=== PATIENT | female | born 1985 | race Caucasian/White ===

== ENCOUNTER 2017-07-25 21:03 | Emergency (ER) | payer MEDICAID, SELFPAY ==
[2017-07-25 21:04] VITALS: BP 139/66; PULSE 81; RESP 18; TEMP 36.2; O2SAT 100; BMI 30.2
[2017-07-25] MEDS: Ketorolac 30 MG/ML Syringe IV (21:33)
[2017-07-25] MEDS: 0.9% Normal Saline 1,000 ML 999 ML IV (21:34)
[2017-07-25] MEDS: proCHLORPERazine 10 MG/2 ML Vial IV (21:34)
[2017-07-25] MEDS: DiphenhydrAMINE 50 MG/ML Syringe IV (21:34)
--- NOTE | 2017-07-25 22:01 | ED.VISSUMM ---
- ER Visit Summary Date of Service: 07/25/17 Chief Complaint: Headache History of Present Illness: The patient is a 32 F with a headache that started about a week ago. Her symptoms have been intermittent. They became worse yesterday and have continued to get worse today. The pain is bitemporal and radiates into her neck. Gradual onset. Worse with light and sounds. Better with sleep. Patient also reports a couple episodes of vomiting. Tried [id number] medicines but they are not helping. She was sent here from work. She has a history of headaches. She was evaluated in the past because she has a family history of aneurysm. She had negative CTAs of her head and neck in 2017. Physical Examination: Afebrile and vital signs unremarkable. Patient appears uncomfortable but not toxic or in distress. She is alert and oriented. Head shows normal inspection. Cranial nerves grossly intact. Neck is nontender. Good range of motion. No meningeal signs. No focal or lateralizing neurologic abnormalities on exam. Good coordination. Test Results: None indicated Emergency Department Course and Treatment: Patient received fluids, Compazine, Benadryl, and Toradol. On reevaluation, symptoms have resolved. Patient will be discharged. Follow-up with primary care. Return for any new or worsening symptoms. Treatment Plan: As above Disposition: Discharged Impression: 1. Acute headache This note was generated with [employer] dictation software. It may contain incorrect words, spelling, and punctuation that were not noted in review of the chart prior to signing ED Disposition - Plan for ED Patient: Chief Complaint: Headache Referrals: Care Physician,No Primary [Primary Care Provider] -
--- NOTE | 2017-07-25 22:03 | ED.DEP ---
ED Disposition - Plan for ED Patient: Chief Complaint: Headache Instructions: ED Cephalgia Unspecified Additional Instructions: Follow-up with primary care, return if worse
[2017-07-25 22:14] VITALS: BP 101/67; PULSE 68; RESP 16; O2SAT 98
== END 2017-07-25 22:16 | disposition home or self-care (01) ==
LOC: ED 21:26
PROVIDERS: Emergency Provider Emergency Medicine
DX: R51 Headache (principal); Z72.0 Tobacco use
CPT/HCPCS: 96361; 96374; 96375; 99284; J7030; A4216

== ENCOUNTER 2017-07-31 14:03 | Emergency (ER) | payer MEDICAID, SELFPAY ==
[2017-07-31 14:03] VITALS: BP 128/94; PULSE 123; RESP 16; TEMP 36.7; O2SAT 97; BMI 31.6
[2017-07-31] MEDS: Ketorolac 60 MG/2 ML Vial IM (14:54)
[2017-07-31] MEDS: Metoclopramide 10 MG Tablet PO (14:54)
[2017-07-31] MEDS: 0.9% Normal Saline 1,000 ML 999 ML IV (15:49)
[2017-07-31 15:52] VITALS: BP 131/98; PULSE 78; RESP 16; O2SAT 98
--- NOTE | 2017-07-31 16:21 | ED.VISSUMM ---
- ER Visit Summary Date of Service: 07/31/17 Chief Complaint: Headache History of Present Illness: The patient is a 32 F who complains of a headache. It is been present for about 1 week it is intermittent. It progressed gradually over the course of several days. It is similar to prior headaches. She does have a history of prior headaches which were treated in the emergency department as migraine with symptomatic improvement. She had normal CTA of the head and neck about 1 year ago. She denies any history of fall or injury. She has some nausea but denies any vomiting fever photophobia visual changes numbness tingling or other neurological symptoms. She also complains of anxiety. She ran out of her Xanax 3 months ago and has been having anxiety and panic attacks since that time. No chest pain or shortness of breath. Physical Examination: Afebrile initial heart rate 123 vitals otherwise unremarkable Patient does appear anxious Moist mucous membranes Heart regular rhythm slightly tachycardic Lungs are clear Abdomen soft Alert and oriented with no focal or lateralizing neurological deficits. Normal strength and sensation. Test Results: Not indicated Emergency Department Course and Treatment: Patient was initially treated with IM Toradol and oral Reglan and Vistaril. She reports improvement of her anxiety but complains of ongoing headache. At this time an IV was established and she was given IV Depacon and Decadron on reevaluation she has only had a small to the infusion but is resting more comfortably and has had some mild symptomatic improvement. Patient will be signed out to the oncoming physician. If symptomatically improved I do believe she can be discharged to follow-up with her primary care physician. Patient agreeable with this plan. Treatment Plan: [] Disposition: Pending reevaluation Impression: Headache Anxiety This note was generated with [employer] dictation software. It may contain incorrect words, spelling, and punctuation that were not noted in review of the chart prior to signing ED Disposition - Plan for ED Patient: Chief Complaint: Headache Referrals: Care Physician,No Primary [Primary Care Provider] -
--- NOTE | 2017-07-31 16:24 | ED.DEP ---
ED Disposition - Plan for ED Patient: Chief Complaint: Headache Instructions: ED Cephalgia Unspecified, ED Panic Attack Referrals: Care Physician,No Primary [Primary Care Provider] -
--- NOTE | 2017-07-31 17:00 | ED.VISSUMM ---
- ER Visit Summary Date of Service: 07/31/17 Chief Complaint: [Addendum to initial dictation by Dr. Taylor] History of Present Illness: The patient is a 32 F [] Physical Examination: [] Test Results: [] Emergency Department Course and Treatment: [Patient care was turned over to me awaiting infusion of medications to treat her suspected migraine. After her treatment patient is feeling markedly improved. Discharge instructions were written by Dr. Taylor.] Treatment Plan: [] Disposition: [Discharged to home in stable condition] Impression: [Headache Anxiety] This note was generated with [employer] dictation software. It may contain incorrect words, spelling, and punctuation that were not noted in review of the chart prior to signing ED Disposition - Plan for ED Patient: Chief Complaint: Headache Instructions: ED Cephalgia Unspecified, ED Panic Attack Referrals: Care Physician,No Primary [Primary Care Provider] -
[2017-07-31 17:10] VITALS: BP 108/69; PULSE 75; RESP 14; O2SAT 100
== END 2017-07-31 17:11 | disposition home or self-care (01) ==
LOC: ED 15:04
PROVIDERS: Emergency Provider Emergency Medicine
DX: R51 Headache (principal); F41.9 Anxiety disorder, unspecified; Z72.0 Tobacco use
CPT/HCPCS: 96365; 96372; 96375; 99283; J7030; A4216

== ENCOUNTER 2017-08-02 16:30 | Emergency (ER) | payer MEDICAID, SELFPAY ==
[2017-08-02 16:31] VITALS: BP 140/83; PULSE 84; RESP 16; TEMP 37; O2SAT 97; BMI 32.3
--- NOTE | 2017-08-02 17:02 | CT_ITS ---
STUDY: CTA OF THE BRAIN REASON FOR EXAM: Female, 32 years old. Headache RADIATION DOSAGE (If Supplied By Facility): CTDIvol = ( 28.46 ) mGy, DLP = ( 1059.34 ) mGycm TECHNIQUE: CT angiography was performed with a multi-detector CT scanner. Data acquisition was obtained from the skull base through the vertex following intravenous administration of 100 ml of Isovue 370. MIP images were reconstructed from the axial data set. Post-processing of the angiographic images was performed, with multiplanar reformation and 3D reconstruction. Individualized dose optimization techniques were used for this CT. COMPARISON: July 19, 2016 FINDINGS: The soft tissues are unremarkable. The osseous structures are unremarkable. Normal size ventricles and extra-axial spaces for the patient's age. The white matter tracts are unremarkable. The basal ganglia and thalami are unremarkable. No abnormalities are seen in the brainstem. The cerebellum is unremarkable. There is no intracranial hemorrhage. There are no findings of acute ischemia. The visualized sinuses are unremarkable. The petrous carotid arteries are normal in appearance. Normal right cavernous carotid artery with a normal supraclinoid bifurcation. Normal left cavernous carotid artery with a normal supraclinoid bifurcation. 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 Normal left A1 segment of the anterior cerebral artery. Normal intact anterior communicating artery (ACOM). Normal bilateral A2 segments of the anterior cerebral arteries. Normal right M1 and M2 segments of the middle cerebral arteries, with a normal M1 bifurcation. Normal left M1 and M2 segments of the middle cerebral arteries, with a normal M1 bifurcation. Normal right posterior communicating artery (PCOM). Normal left posterior communicating artery (PCOM). Normal bilateral distal vertebral arteries. Normal basilar artery with a normal basilar bifurcation. The visualized bilateral superior cerebellar (SCA) arteries are within normal limits. Normal bilateral P1, P2 and visualized P3 segments of the posterior cerebral arteries. There is no demonstrated aneurysm of the [place]. There is no demonstrated enhancement of the visualized brain. CT/CTA Head W/WO Contrast IMPRESSION: Normal intracranial arteries without a demonstrated aneurysm or hemodynamically significant stenosis. No acute intracranial abnormalities or changes. Electronically Signed: Coby Reza MD at 18:55 EST Tel Direct: [phone], Service support ,
[2017-08-02] MEDS: 0.9% Normal Saline 1,000 ML 1000 ML IV (17:18)
[2017-08-02] MEDS: Ketorolac 30 MG/ML Syringe IV (17:19)
[2017-08-02] MEDS: proCHLORPERazine 10 MG/2 ML Vial IV (17:19)
[2017-08-02] MEDS: DiphenhydrAMINE 50 MG/ML Syringe 25 MG IV (17:19)
[2017-08-02 17:21] VITALS: PULSE 88; RESP 16; O2SAT 99
[2017-08-02] MEDS: DiphenhydrAMINE 50 MG/ML Syringe 12.5 MG IV (17:32)
[2017-08-02 17:33] LABS: Absolute Lymphocyte Count 3.09 X10^3/ul (0.83-4.51); Absolute Neutrophil Count 4.4 X10^3/uL (2.0-7.7); Basophil# 0.05 X10^3/uL; Basophil% 0.6 % (0-1); Eosinophil# 0.22 X10^3/uL; Eosinophils% 2.7 % (0-5); Hematocrit 44.5 % (37-47); Hemoglobin 14.8 g/dl (12.0-15.0); Lymphocyte # 3.09 X10^3/ul (4.0); Lymphocyte % 37.7 % (19-41); Mean Corp Hgb Conc 33.3 g/gl (32-36); Mean Corpuscular Hgb 30.5 pg (27.0-32.0); Mean Corpuscular Volume 91.8 fL (81-99); Mean Platelet Vol. 10.6 fl (6.2-12.0); Monocyte% 4.9 % (0-10); Neutrophil # 4.43 X10^3/uL (2.7-7.7); Platelet Count 144 K/mm3 (150-450); RBC Distribution Width CV 12.6 % (11.6-14.6); RBC Distribution Width SD 42.4 fl (35.1-43.9); Red Blood Count 4.85 M/mm3 (4.2-5.4); White Blood Count 8.2 K/mm3 (4.4-11.0)
--- NOTE | 2017-08-02 17:33 | ED.RN ---
INCREASED ANXIETY AFTER MEDS GIVEN. ADDITIONAL BENADRYL ORDERED PER DR. CALVO.
[2017-08-02 17:34] LABS: POSITIVE COUNT NO; POSITIVE DIFFERENTIAL NO; POSITIVE MORPHOLOGY NO
[2017-08-02 18:02] LABS: Anion Gap 8 (5-15); BUN 12 mg/dL (7-18); BUN/Creat Ratio 15.2 RATIO (10-20); Calcium,Total 8.9 mg/dL (8.5-10.1); Chloride 106 mmol/L (98-107); Creatinine, Serum 0.79 mg/dL (0.55-1.02); EST Glomerular Filtration Rate 89 mL/min (>60); Est Glom Filt Rate - Afr Amer 108 mL/min (>60); Estimated Creatinine Clearance 77.15 ml/min; Glucose 84 mg/dL (74-106); Sodium Level 138 mmol/L (136-145)
[2017-08-02 18:37] VITALS: BP 116/72; PULSE 60; RESP 16
--- NOTE | 2017-08-02 19:40 | ED.DCSUM_ITS ---
- ER Visit Summary Date of Service: 08/02/17 Chief Complaint: Headache History of Present Illness: The patient is a 32 F with history of migraine headaches. Patient states she has had recurrent migraines in the past couple weeks. She denies fever. She has had nausea and light sensitivity. Last medication for headache was Tylenol proximal 3 hours prior to arrival. Patient was seen here for the same on July 25 and July 31. Patient has an appointment to establish primary care at [facility] on the . Physical Examination: Vital signs are unremarkable. Patient is very anxious. She is intermittently tearful. Head and neck examination reveals diffuse muscular tenderness throughout the neck but no meningismus. Heart is regular rate and rhythm. Lung sounds are clear. Abdomen is soft nontender. Neuro exam is normal. Test Results: CBC and chemistry studies are significant only for platelet count of 144,000. She has no leukocytosis. CTA of the head was obtained secondary to family history of aneurysm. This is normal. Emergency Department Course and Treatment: She was given Toradol, Compazine, Benadryl, and IV fluids. On repeat evaluation she does report improvement. Patient raises concern for meningitis however she has had no fever and has had recurrent headaches for 2-1/2 weeks. Patient will be given prescriptions for Toradol, Compazine, and Benadryl at home. I have referred her to neurology as well to establish care with them. Treatment Plan: [] Disposition: Discharge Impression: Migraine, improved This note was generated with [employer] dictation software. It may contain incorrect words, spelling, and punctuation that were not noted in review of the chart prior to signing ED Disposition - Plan for ED Patient: Disposition: Home or Assisted Living Chief Complaint: Headache Instructions: ED Headache Migraine Prescriptions: DiphenhydrAMINE [Benadryl] 50 mg PO TID PRN PRN #20 capsule PRN Reason: Migraine Symptoms Prochlorperazine Maleate [Compazine] 10 mg PO 4X/DAY PRN PRN #20 tablet PRN Reason: Migraine Symptoms Ketorolac [Toradol] 10 mg PO Q6H PRN #20 tablet PRN Reason: Migraine Symptoms Referrals: Haylie Moncada MD [STAFF PHYSICIAN] - As soon as possible Additional Instructions: Follow-up with neurology as soon as possible. Keep your scheduled appointment with your new primary care doctor.
--- NOTE | 2017-08-02 19:43 | DCINST.ED_ITS ---
ED Disposition - Plan for ED Patient: Disposition: Home or Assisted Living Chief Complaint: Headache Instructions: ED Headache Migraine Prescriptions: DiphenhydrAMINE [Benadryl] 50 mg PO TID PRN PRN #20 capsule PRN Reason: Migraine Symptoms Prochlorperazine Maleate [Compazine] 10 mg PO 4X/DAY PRN PRN #20 tablet PRN Reason: Migraine Symptoms Ketorolac [Toradol] 10 mg PO Q6H PRN #20 tablet PRN Reason: Migraine Symptoms Referrals: Haylie Moncada MD [STAFF PHYSICIAN] - As soon as possible Additional Instructions: Follow-up with neurology as soon as possible. Keep your scheduled appointment with your new primary care doctor.
[2017-08-02 19:50] VITALS: BP 109/58; PULSE 71; RESP 18; O2SAT 97
== END 2017-08-02 19:51 | disposition home or self-care (01) ==
PROVIDERS: Emergency Provider Emergency Medicine
DX: G43.909 Migraine, unspecified, not intractable, without status migrainosus (principal); Z72.0 Tobacco use
CPT/HCPCS: 70496; 80048; 85025; 96361; 96374; 96375; 99283; J7030; Q9967; A4216

== ENCOUNTER 2017-08-08 17:56 | Emergency (ER) | payer MEDICAID, SELFPAY ==
[2017-08-08 17:58] VITALS: BP 165/106; PULSE 100; RESP 18; TEMP 37.1; O2SAT 96; BMI 32.1
--- NOTE | 2017-08-08 18:40 | RAD_ITS ---
STUDY: X-RAY CHEST REASON FOR EXAM: Female, 32 years old. Chest pain with shortness of breath and anxiety TECHNIQUE: AP COMPARISON: 02/22/2016 FINDINGS: The lungs are clear and expanded. There is no demonstrated pleural abnormality. Normal size heart. Normal mediastinum and amauri. Normal visualized pulmonary arteries. Normal visualized aortic arch and descending thoracic aorta. Normal visualized thoracic spine. Normal visualized ribs, clavicles, and shoulders. There is no demonstrated abnormality of the visualized soft tissue structures of the upper abdomen. RAD/Chest 1 View (Portable) IMPRESSION: 1. Stable, nonacute portable x-ray examination of the chest. Electronically Signed: Uche Garibay MD at 19:28 EST , Service support ,
--- NOTE | 2017-08-08 18:40 | EKG12_ITS ---
Test Reason : CP Blood Pressure : / mmHG Vent. Rate : 097 BPM Atrial Rate : 097 BPM P-R Int : 144 ms QRS Dur : 084 ms QT Int : 404 ms P-R-T Axes : 024 054 -59 degrees QTc Int : 513 ms Normal sinus rhythm Nonspecific ST and T wave abnormality Abnormal ECG Confirmed by LOGAN CORCORAN, JUANITA ([id number]), online editor SUZANNE MORRIS ([id number]) on 08/10/2017 1:37:09 PM Referred By: LUBNA
[2017-08-08 19:00] LABS: Absolute Lymphocyte Count 2.71 X10^3/ul (0.83-4.51); Absolute Neutrophil Count 6.8 X10^3/uL (2.0-7.7); Basophil# 0.02 X10^3/uL; Basophil% 0.2 % (0-1); Eosinophil# 0.23 X10^3/uL; Eosinophils% 2.2 % (0-5); Hematocrit 43.9 % (37-47); Hemoglobin 14.9 g/dl (12.0-15.0); Lymphocyte # 2.71 X10^3/ul (4.0); Lymphocyte % 26.5 % (19-41); Mean Corp Hgb Conc 33.9 g/gl (32-36); Mean Corpuscular Hgb 30.2 pg (27.0-32.0); Mean Platelet Vol. 11.1 fl (6.2-12.0); Monocyte# 0.48 X10^3/uL; Monocyte% 4.7 % (0-10); Neutrophil # 6.79 X10^3/uL (2.7-7.7); Neutrophil % 66.3 % (47-70); Platelet Count 152 K/mm3 (150-450); RBC Distribution Width CV 12.5 % (11.6-14.6); RBC Distribution Width SD 39.9 fl (35.1-43.9); Red Blood Count 4.93 M/mm3 (4.2-5.4); White Blood Count 10.2 K/mm3 (4.4-11.0)
[2017-08-08 19:06] LABS: POSITIVE COUNT NO; POSITIVE DIFFERENTIAL NO; POSITIVE MORPHOLOGY NO
[2017-08-08 19:14] LABS: Anion Gap 9 (5-15); BUN 12 mg/dL (7-18); BUN/Creat Ratio 13.2 RATIO (10-20); Calcium,Total 9.1 mg/dL (8.5-10.1); Chloride 106 mmol/L (98-107); Creatinine, Serum 0.91 mg/dL (0.55-1.02); EST Glomerular Filtration Rate 76 mL/min (>60); Est Glom Filt Rate - Afr Amer 92 mL/min (>60); Estimated Creatinine Clearance 66.97 ml/min; Glucose 106 mg/dL (74-106); Potassium 4.3 mmol/L (3.5-5.1); Sodium Level 138 mmol/L (136-145)
[2017-08-08 19:50] VITALS: BP 128/66; PULSE 70; RESP 16; O2SAT 97; O2SAT 98
[2017-08-08] MEDS: Ondansetron 4 MG/2 ML Vial IV ×2 (20:32→22:33)
[2017-08-08] MEDS: 0.9% Normal Saline 1,000 ML 150 ML IV (20:32)
[2017-08-08 21:04] LABS: Carboxyhemoglobin Frac (CO) -0.6 % (0.0-1.5)
[2017-08-08 21:05] VITALS: BP 109/66; PULSE 63; RESP 16; O2SAT 98
--- NOTE | 2017-08-08 22:19 | ED.DCSUM_ITS ---
- ER Visit Summary Date of Service: 08/08/17 Chief Complaint: Headache, anxiety, chest pain History of Present Illness: The patient is a 32 F with recurrent headaches over the past 3 weeks and anxiety. Patient states when her anxiety gets bad she gets intermittent right-sided chest pain. Patient reports that she quit smoking 3 days ago. She denies fever. Patient has been to the ER 3 prior visits because of her headaches. She has extensive workups including CTA of the head that was unremarkable. Patient has an appointment with her new PCP in 2 days. States her headaches no longer feel like migraines, as she has no light sensitivity, nausea, or vomiting. She has been trying to avoid eyestrain. She denies any head injuries. Physical Examination: Vital signs are unremarkable. Head and neck examination reveals cervical paraspinal tenderness. There is no meningismus. Heart is regular rate and rhythm. Lung sounds are clear. Abdomen is soft nontender. Neuro exam is normal. Patient is anxious and intermittently tearful. Test Results: CBC and chemistry studies are unremarkable. Troponin is less than 0.02. Carboxyhemoglobin level is normal. EKG is sinus at [address] changes. Emergency Department Course and Treatment: Was given morphine and Zofran. I did review her prior workups. On repeat evaluation she states her headache was improved but pain is now starting to come back. Should be given 1 more dose of morphine and Zofran here, but no pain meds for home. The only other option to treat that we have not yet addressed is potential sinus infection causing symptoms. I did review her prior CT report that documented normal sinuses. Patient does report a lot of congestion and pressure behind her eyes. We also discussed at length the role her anxiety is playing in the symptoms. She will be given a very short course of Ativan for home to try to keep these symptoms under control while we are trying to determine the cause of her headaches. She will be treated with a course of Augmentin and a short course of Ativan. She is given referrals to both the counseling center and to behavioral health. Treatment Plan: [] Disposition: Discharge Impression: 1. Cephalgia 2. Anxiety This note was generated with [employer] software. It may contain incorrect words, spelling, and punctuation that were not noted in review of the chart prior to signing ED Disposition - Plan for ED Patient: Disposition: Home or Assisted Living Chief Complaint: Chest Pain Instructions: ED Cephalgia Unspecified, ED Panic Attack Prescriptions: Amox/Clavulanate Tablet [Augmentin Tablet] 875 mg PO Q12H #20 tab Lorazepam [Ativan] 0.5 - 1 tab PO TID #10 tablet Referrals: Counseling,Center [GROUP OF PHYSICIANS] - As Needed Yohannes Downey MD [Primary Care Provider] - Keep Ev appointment Behavioral,Health [facility] [GROUP OF PHYSICIANS] - As Needed
--- NOTE | 2017-08-08 22:23 | DCINST.ED_ITS ---
ED Disposition - Plan for ED Patient: Disposition: Home or Assisted Living Chief Complaint: Chest Pain Instructions: ED Cephalgia Unspecified, ED Panic Attack Prescriptions: Amox/Clavulanate Tablet [Augmentin Tablet] 875 mg PO Q12H #20 tab Lorazepam [Ativan] 0.5 - 1 tab PO TID #10 tablet Referrals: Yohannes Downey MD [Primary Care Provider] - Keep Ev appointment Counseling,Center [GROUP OF PHYSICIANS] - As Needed Behavioral,Health [facility] [GROUP OF PHYSICIANS] - As Needed
[2017-08-08] MEDS: LORazepam 1 MG Tablet PO (22:33)
[2017-08-08] MEDS: Amox/Clavulanate 875 MG Tablet PO (22:33)
[2017-08-08 23:05] VITALS: BP 117/68; PULSE 81; RESP 16; O2SAT 97
== END 2017-08-08 23:10 | disposition home or self-care (01) ==
PROVIDERS: Emergency Provider Emergency Medicine; Family Provider Family Medicine; PCP Family Medicine
DX: R51 Headache (principal); F41.9 Anxiety disorder, unspecified; Z87.891 Personal history of nicotine dependence
CPT/HCPCS: 71045; 80048; 82375; 84484; 85025; 93005; 96361; 96374; 96375; 96376; 99285; J7030; A4216; J2405

== ENCOUNTER 2017-11-09 21:54 | Emergency (ER) | payer SELFPAY ==
[2017-11-09 21:55] VITALS: BP 128/72; PULSE 107; RESP 18; TEMP 36.4; O2SAT 98; BMI 32.5
--- NOTE | 2017-11-09 21:57 | RAD_ITS ---
STUDY: X-RAY - RIGHT FOOT CLINICAL: Female, 32 years old. Pain, injury TECHNIQUE: 3 view(s) of the foot. COMPARISON: None. FINDINGS: There is hallux valgus. There is nondisplaced fracture at the neck of the fifth proximal phalanx. Joint spaces are well maintained. There is no osseous destruction. RAD/Foot min 3 Views IMPRESSION: Nondisplaced fracture at the neck of the fifth proximal phalanx Hallux valgus Electronically Signed: Luke Mercedes MD at 22:16 EDT Tel , Service support ,
--- NOTE | 2017-11-09 22:30 | ED.VISSUMM ---
- ER Visit Summary Date of Service: 11/09/17 Chief Complaint: Right toe injury History of Present Illness: The patient is a 32 F presenting with right toe pain. Patient states yesterday while at work she was wearing open toed shoes. Her foot accidentally scraped against concrete. She presents today due to persistent pain. She is able to ambulate. She tried Motrin at home. No other injuries. She declines to file Worker's Compensation. Physical Examination: Vitals are stable. Patient is afebrile. Alert no acute distress. HEENT exam is unremarkable. Lungs are clear and equal bilaterally. Heart is regular rate and rhythm. Extremities right small toe tenderness and ecchymosis. No midfoot or ankle tenderness. Skin is warm and dry. No focal neurologic deficit. Remainder of exam is unremarkable. Emergency Department Course and Treatment: Right foot x-ray shows nondisplaced fracture at the neck of the fifth proximal phalanx. Toes are raquel taped and she is given a postop shoe. Advised to continue NSAIDs at home. Advised to follow-up with her primary care physician. Advised return to ED for worsening complaints. Disposition: Discharge home Impression: Right fifth toe fracture This note was generated with [employer] dictation software. It may contain incorrect words, spelling, and punctuation that were not noted in review of the chart prior to signing ED Disposition - Plan for ED Patient: Chief Complaint: Lower Extremity Injury Instructions: ED Fx Toe Closed Referrals: Yohannes Downey MD [Primary Care Provider] -
--- NOTE | 2017-11-09 22:44 | ED.DEP ---
ED Disposition - Plan for ED Patient: Chief Complaint: Lower Extremity Injury Instructions: ED Fx Toe Closed Referrals: Yohannes Downey MD [Primary Care Provider] -
[2017-11-09 22:58] VITALS: RESP 18
== END 2017-11-09 22:59 | disposition home or self-care (01) ==
LOC: ED 22:38
PROVIDERS: Emergency Provider Emergency Medicine; Family Provider Family Medicine; PCP Family Medicine
DX: S92.911A Unspecified fracture of right toe(s), initial encounter for closed fracture (principal); X58.XXXA Exposure to other specified factors, initial encounter; Y93.9 Activity, unspecified; Y92.9 Unspecified place or not applicable; Y99.9 Unspecified external cause status
CPT/HCPCS: 73630; 99283

== ENCOUNTER 2017-12-20 22:16 | Emergency (ER) | payer MEDICAID, SELFPAY ==
[2017-12-20 22:18] VITALS: BP 108/77; PULSE 98; RESP 18; TEMP 36.7; O2SAT 97; BMI 32.6
--- NOTE | 2017-12-20 22:48 | ED.DCSUM_ITS ---
- ER Visit Summary Date of Service: 12/20/17 Chief Complaint: Dizzy, nausea, vomiting, headache History of Present Illness: The patient is a 32 F who complains of a four-day history of nausea and sinus pressure. She also complains of tightness in her neck and the back of her head which feels like a tension headache. It does wrap to the sides of her head. She states she feels dizzy which is worse with change of position. She denies fever. She has been taking Motrin, last dose 5 hours ago. Physical Examination: Vital signs are unremarkable. Patient standing at bedside as her child is also being seen. She is in no acute distress. Head neck examination reveals TMs to be clear bilaterally. She does have reducible tenderness in the right frontal and maxillary sinuses. She has mild posterior pharyngeal drainage without edema or erythema. Uvula is midline. Neck is supple with no lymphadenopathy. Heart is regular rate and rhythm. Lung sounds are clear. Abdomen is soft and nontender. Back examination reveals tenderness to palpation to the bilateral cervical paraspinal muscles and over the base of the skull. Neuro exam is normal. Test Results: [] Emergency Department Course and Treatment: The patient may have early sinusitis , but she is only had symptoms for 4 days and will therefore be treated with antibiotics. I feel a lot of her pain is coming from the muscle spasm in her neck causing tension headache. She will be treated with Naprosyn, Flexeril, and Zofran. Treatment Plan: [] Disposition: Discharge Impression: Tension headache This note was generated with [employer] dictation software. It may contain incorrect words, spelling, and punctuation that were not noted in review of the chart prior to signing ED Disposition - Plan for ED Patient: Chief Complaint: Dizziness Referrals: Yohannes Downey MD [Primary Care Provider] -
--- NOTE | 2017-12-20 22:48 | ED.DEP ---
ED Disposition - Plan for ED Patient: Disposition: Home or Assisted Living Chief Complaint: Dizziness Instructions: ED Headache Tension Prescriptions: Ondansetron [Zofran Odt] 4 mg PO Q8H PRN PRN #10 tablet PRN Reason: Nausea Naproxen [Naprosyn] 500 mg PO BID PRN #20 tablet Cyclobenzaprine [Flexeril] 10 mg PO TID PRN #20 tablet PRN Reason: Muscle Spasm Referrals: Yohannes Downey MD [Primary Care Provider] - 1 Week if not improving
[2017-12-20] MEDS: Naproxen 500 MG Tablet PO (23:02)
[2017-12-20] MEDS: Ondansetron ODT 4 MG Tablet PO (23:03)
[2017-12-20 23:04] VITALS: RESP 20
== END 2017-12-20 23:05 | disposition home or self-care (01) ==
LOC: ED 22:52
PROVIDERS: Emergency Provider Emergency Medicine; Family Provider Family Medicine; PCP Family Medicine
DX: G44.209 Tension-type headache, unspecified, not intractable (principal); Z72.0 Tobacco use
CPT/HCPCS: 99284

== ENCOUNTER 2018-01-21 14:20 | Emergency (ER) | payer OTHER, MEDICAID, SELFPAY ==
[2018-01-21 14:20] VITALS: BP 124/92; PULSE 76; RESP 16; TEMP 36.8; O2SAT 98; BMI 32.1
--- NOTE | 2018-01-21 14:47 | ED.DCSUM_ITS ---
- ER Visit Summary Date of Service: 01/21/18 Chief Complaint: [] The patient complains of right-sided headache hit by 30 pack beer at work yesterday History of Present Illness: The patient is a 33 F [] she was working yesterday, she indicates a 30 pack of beer was very high up in the stack and it inadvertently struck her in the right head she had no LOC no neck pain chest pain abdominal pain no 6 paresthesias no change in vision no neurological maladies she had a headache, she reports today the headache is persisted and she comes in for evaluation it is not the worst headache of her life and again she has no neurologic symptoms today she was able to rest through the night no numbness weakness or paresthesias she denies a past history she did take Tylenol for the pain which seemed to help a little bit Physical Examination: [] She has some mild pain to the right forehead area, her pupils are equal reactive the neck is unremarkable TMs are clear the oral cavity nose are unremarkable the lungs are clear the heart tones are normal again the neck is very supple abdomen soft nontender upper lower extremities unremarkable the backs unremarkable she has normal strength sensation her gait is normal no neurologic abnormalities her NIH is 0 she is wide awake alert Test Results: [] Emergency Department Course and Treatment: [] Had a long conversation with her reviewed all the above this occurred last night she has had no LOC no nausea vomiting or other neurologic or psychiatric concussion, I explained we could obtain head CT look for life-threatening etiologies of her symptoms she declined head CT she does not feel she can work today she will try to work release Naprosyn for pain refer to Worker's Comp[facility] for follow- up she is to return for change in symptoms with head injury instruction sheet Treatment Plan: [] Disposition: [] Home stable Impression: [] Head injury closed This note was generated with [employer] dictation software. It may contain incorrect words, spelling, and punctuation that were not noted in review of the chart prior to signing ED Disposition - Plan for ED Patient: Chief Complaint: Head Injury Referrals: Yohannes Downey MD [Primary Care Provider] -
--- NOTE | 2018-01-21 14:47 | ED.DEP ---
ED Disposition - Plan for ED Patient: Chief Complaint: Head Injury Instructions: ED Concussion, ED Contusion Scalp, ED Head Injury Closed Prescriptions: Naproxen [Naprosyn] 500 mg PO BID PRN #20 tab Referrals: Yohannes Downey MD [Primary Care Provider] - [facility] [place] [GROUP OF PHYSICIANS] -
[2018-01-21] MEDS: Naproxen 500 MG Tablet PO (14:57)
[2018-01-21 15:51] VITALS: PULSE 76; RESP 16
== END 2018-01-21 15:52 | disposition home or self-care (01) ==
PROVIDERS: Emergency Provider Emergency Medicine; Family Provider Family Medicine; PCP Family Medicine
DX: S09.90XA Unspecified injury of head, initial encounter (principal); W20.8XXA Other cause of strike by thrown, projected or falling object, initial encounter; Y93.89 Activity, other specified; Y92.89 Other specified places as the place of occurrence of the external cause; Y99.0 Civilian activity done for income or pay
CPT/HCPCS: 99283

== ENCOUNTER 2018-01-30 15:16 | Emergency (ER) | payer MEDICAID, SELFPAY ==
[2018-01-30 15:17] VITALS: BP 142/92; PULSE 95; RESP 16; TEMP 37.1; O2SAT 97; BMI 32.5
--- NOTE | 2018-01-30 16:00 | ED.VISSUMM ---
- ER Visit Summary Date of Service: 01/30/18 Chief Complaint: Headache History of Present Illness: The patient is a 33 F increasing headache since yesterday. Symptoms behind both eyes. Positive aura. Mild photo and phonophobia. Nausea without vomiting. States this is been going on for months. Has been seen in the ED 3 times before seeing PCP 2 months ago. States was given migraine cocktail along with seizure medications. States it did help initially. Saw Dr. Jones 2 months ago started on Lexapro for which she states she stopped a week ago but it is not helping her symptoms. She was at the office today having symptoms, had a panic attack therefore sent here. Does admit to have a head injury 1 week ago was seen here, told she had a concussion. Has had a baseline CAT scan recently. Currently states feels a little off balance. No syncopal episodes. Physical Examination: General: Alert and orientated, no acute distress. ENT: Normocephalic atraumatic. Pupils equal reactive to light. Extraocular muscles intact. Mild photophobia during exam. She moist mucosal membranes. Neck with no meningismus findings. Neurological a and O ?3. Cranial nerves all intact. Remainder exam is unremarkable. Test Results: [] Emergency Department Course and Treatment: Patient vital signs stable. No meningismal findings. Patient treated migraine regimen Reglan, Benadryl, Toradol along with IV fluids. Reevaluation symptoms were resolved. I did review her records, noted she was treated with similar in July had resolution symptoms had multiple returns for different circumstances. There is no seizure medication that she discuss. She was referred to neurology at one point. Discussed with patient, she states she lost her paperwork. She will be re-referred to neurology. She will follow-up with her PCP for her anxiety symptoms for outpatient reevaluation. Treatment Plan: [] Disposition: Discharge Impression: Migraine headache This note was generated with [employer] dictation software. It may contain incorrect words, spelling, and punctuation that were not noted in review of the chart prior to signing ED Disposition - Plan for ED Patient: Disposition: Home or Assisted Living Chief Complaint: Headache Diagnosis: Migraine headache with aura Instructions: ED Headache Migraine Referrals: NOT,DEFINED [Primary Care Provider] - Charles Valentin MD [STAFF PHYSICIAN] - 3-5 Days
[2018-01-30] MEDS: DiphenhydrAMINE 50 MG/ML Syringe 25 MG IV (16:28)
[2018-01-30] MEDS: Ketorolac 30 MG/ML Syringe IV (16:28)
[2018-01-30] MEDS: 0.9% Normal Saline 1,000 ML 999 ML IV (16:28)
[2018-01-30] MEDS: Metoclopramide 10 MG/2 ML Vial IV (16:29)
[2018-01-30 17:02] VITALS: BP 101/51; PULSE 64; RESP 15; O2SAT 100
[2018-01-30 17:31] VITALS: PULSE 71; RESP 15; O2SAT 98
== END 2018-01-30 17:32 | disposition home or self-care (01) ==
PROVIDERS: Emergency Provider Emergency Medicine; Family Provider Family Medicine
DX: G43.909 Migraine, unspecified, not intractable, without status migrainosus (principal)
CPT/HCPCS: 99283

== ENCOUNTER 2018-03-16 12:30 | Emergency (ER) | payer MEDICAID, SELFPAY ==
[2018-03-16 12:32] VITALS: BP 109/73; PULSE 110; RESP 18; TEMP 37.2; O2SAT 98; BMI 32.4
[2018-03-16 12:48] VITALS: O2SAT 96
[2018-03-16 12:53] VITALS: PULSE 94; RESP 18
[2018-03-16] MEDS: Ipratropium/Albuterol Sulfate 3 ML AMPUL.NEB INHALATION (12:53)
--- NOTE | 2018-03-16 12:59 | ED.DCSUM_ITS ---
- ER Visit Summary Date of Service: 03/16/18 Chief Complaint: Cough, shortness of breath History of Present Illness: The patient is a 33 F presents to the emergency department with upper respiratory symptoms. Patient states symptoms began about 4 days ago. She had some nasal fullness and some fevers and chills. Since then, she had worsening cough with productive sputum. She also feels short of breath when she coughs and has had some posttussive emesis. Patient denies any significant medical history. She has no history of immunosuppression. 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 2 days ago was her last dose. She states it does not hurt to take a deep breath. She does smoke. Physical Examination: Vital signs reviewed General: Well-nourished, well-developed Head: Normocephalic, atraumatic Eyes: Pupils equal and reactive, extraocular muscles intact Neck, supple, no lymphadenopathy Heart: Regular rate and rhythm Respiratory: No distress, wheezing throughout all lung renteria Abdomen: Soft, nontender, nondistended, no peritoneal signs Back: Nontender Extremities: Nontender, no edema, no cords Skin: Normal color no rash Neuro: Alert and oriented, no focal or lateralizing deficits Test Results: [] Emergency Department Course and Treatment: The patient presents with wheezing in the lung renteria, cough, fever, productive sputum. IV was established. She was given fluids and antiemetics. Patient was given nebulized breathing treatments with marked improvement of aeration. She does have a leukocytosis, but otherwise labs are unremarkable. Her x-ray shows some atelectasis in the left upper lobe. I do have some suspicion this may be early pneumonia. On reevaluation the the patient is resting comfortably. She had marked improvement of her symptoms. At this time, I do feel that she is safe for outpatient therapy. The patient will be treated with prednisone, azithromycin, and an inhaler. She was counseled on concerning symptoms and reasons to return. She will be discharged home. Treatment Plan: [] Disposition: Discharge Impression: 1. Acute infectious bronchitis This note was generated with [employer] software. It may contain incorrect words, spelling, and punctuation that were not noted in review of the chart prior to signing ED Disposition - Plan for ED Patient: Chief Complaint: Shortness of Breath Instructions: ED Upper Resp Infec Abx Tx Prescriptions: Albuterol Inhaler [Ventolin Hfa] 1 - 2 puff INHALATION Q4H PRN PRN #1 inhaler PRN Reason: Wheezing Azithromycin [Zithromax Z-Cristo] 250 mg PO UD #1 box Prednisone 10 mg PO UD #33 tab Referrals: NOT,DEFINED [NON-STAFF] -
[2018-03-16 13:05] LABS: Red Blood Cells-Urine 0 SEEN /hpf (0-5)
[2018-03-16] MEDS: Ketorolac 15 MG/ML Vial IV (13:08)
[2018-03-16] MEDS: proMETHazine 25 MG/ML Syringe 6.25 MG IV (13:08)
[2018-03-16] MEDS: LORazepam 2 MG/ML Syringe 1 MG IV (13:09)
[2018-03-16] MEDS: 0.9% Normal Saline 1,000 ML 1000 ML IV (13:09)
--- NOTE | 2018-03-16 13:13 | RAD_ITS ---
STUDY: X-RAY CHEST REASON FOR EXAM: Female, 33 years old. Cough, fever and headaches. TECHNIQUE: PA and lateral views of the chest. COMPARISON: Comparison is made with prior examination dated August 08, 2017. FINDINGS: Minimal increased linear markings in the lingular segment of the left upper lobe. This may represent linear atelectasis. There is no demonstrated pleural abnormality. Normal size heart. Normal mediastinum and amauri. Normal visualized pulmonary arteries. Normal visualized aortic arch and descending thoracic aorta. Normal visualized thoracic spine. Normal visualized ribs, clavicles, and shoulders. There is no demonstrated abnormality of the visualized soft tissue structures of the upper abdomen. RAD/Chest PA and Lateral IMPRESSION: Minimal increased linear markings in the lingular segment of the left upper lobe suggestive of linear atelectasis. Electronically Signed: Gil Galvan MD at 13:58 EDT Tel [phone], Service support ,
[2018-03-16 13:14] LABS: Absolute Lymphocyte Count 2.89 X10^3/ul (0.83-4.51); Basophil# 0.04 X10^3/uL; Basophil% 0.3 % (0-1); Eosinophil# 0.45 X10^3/uL; Hematocrit 45.6 % (37-47); Hemoglobin 15.7 g/dl (12.0-15.0); Lymphocyte # 2.89 X10^3/ul (4.0); Mean Corp Hgb Conc 34.4 g/gl (32-36); Mean Corpuscular Hgb 30.4 pg (27.0-32.0); Mean Corpuscular Volume 88.4 fL (81-99); Mean Platelet Vol. 11.4 fl (6.2-12.0); Monocyte# 0.77 X10^3/uL; Monocyte% 5.1 % (0-10); Neutrophil % 72.4 % (47-70); Platelet Count 177 K/mm3 (150-450); RBC Distribution Width CV 12.8 % (11.6-14.6); RBC Distribution Width SD 41.2 fl (35.1-43.9); Red Blood Count 5.16 M/mm3 (4.2-5.4); White Blood Count 15.2 K/mm3 (4.4-11.0)
[2018-03-16 13:14] LABS: Color, Urine Yellow (Yellow); Glucose, Dipstick Normal (Normal); Ketone-Dipstick Negative (Negative); Leukocyte Esterase-Dipstick Negative /ul (Negative); Nitrite-Dipstick Negative (Negative); Occult Blood-Urine Negative /ul (Negative); Protein-Dipstick Negative (Negative); Specific Gravity, Urine 1.015 (1.002-1.030); Urine Bilirubin Dipstick Negative (Negative); Urine Clarity Clear (Clear); Urine Urobilinogen Normal (Normal)
[2018-03-16 13:18] LABS: POSITIVE COUNT NO; POSITIVE DIFFERENTIAL NO; POSITIVE MORPHOLOGY NO
[2018-03-16 13:19] LABS: Internal QC Validated? YES +Cl - CLEAR BKGD; Pregnancy, Urine Negative Negative
[2018-03-16 13:20] LABS: Anion Gap 7 (5-15); BUN 10 mg/dL (7-18); Calcium,Total 9.5 mg/dL (8.5-10.1); Chloride 106 mmol/L (98-107); EST Glomerular Filtration Rate 76 mL/min (>60); Est Glom Filt Rate - Afr Amer 92 mL/min (>60); Estimated Creatinine Clearance 67.09 ml/min; Glucose 96 mg/dL (74-106); Sodium Level 137 mmol/L (136-145)
[2018-03-16 13:33] LABS: Bacteria 2+ /hpf (None Seen); Mucous, Urine 1+ /hpf (<or=2+); Squamous Epithelial Cells - UA 10-25 SEEN /hpf (5-10); White Blood Cells 0-5 SEEN /hpf (0-5)
[2018-03-16 13:39] VITALS: BP 117/64; PULSE 89; RESP 20; O2SAT 100
[2018-03-16 14:40] VITALS: BP 113/68; PULSE 95; RESP 18; O2SAT 95
--- NOTE | 2018-03-17 12:58 | CM.ED ---
ED CALLBACK: Follow-up call placed to patient with no answer. Message states that voicemail box is full and cannot accept messages. Will reattempt call as time allows.
== END 2018-03-16 14:41 | disposition home or self-care (01) ==
PROVIDERS: Emergency Provider Emergency Medicine; Family Provider Family Medicine; PCP Family Medicine
DX: J20.9 Acute bronchitis, unspecified (principal); Z72.0 Tobacco use; J98.11 Atelectasis
CPT/HCPCS: 71046; 80048; 81001; 81025; 85025; 94640; 96361; 96374; 96375; 99284; J7030

== ENCOUNTER 2018-04-03 08:08 | Emergency (ER) | payer MEDICAID, SELFPAY ==
[2018-04-03 08:10] VITALS: BP 110/91; PULSE 127; RESP 18; TEMP 36.4; O2SAT 95; BMI 32.4
--- NOTE | 2018-04-03 08:25 | ED.VISSUMM ---
- ER Visit Summary Date of Service: 04/03/18 Chief Complaint: Cough History of Present Illness: The patient is a 33 F who has had a cough and sinus congestion for 2 weeks. She describes nasal congestion with a runny nose. She has had a productive cough as well. She was seen a couple weeks ago and diagnosed with bronchitis. She was given azithromycin, steroids and albuterol inhaler. She continues to smoke while using the albuterol inhaler. She has tried DayQuil but has not helped. She did not check her temperature at home but has felt chilled. She does not get a flu shot ever. Physical Examination: Signs reviewed. Heart rate significant at 127. HEENT exam reveals normal tympanic membranes. She does have some slight posterior oropharyngeal erythema without tonsillar swelling or exudates. Heart is tachycardic and regular rhythm without murmurs. Lungs have end expiratory wheezing diffusely. Abdomen soft and nontender. Her neurologic exam is at baseline. Skin exam reveals no rashes. Test Results: None performed Emergency Department Course and Treatment: Patient will be treated with doxycycline, Medrol Dosepak and Mucinex D. She will be treated with antibiotics due to the longevity of the patient's symptoms. She will need follow-up with her PCP for further testing if her symptoms persist. She was also counseled on smoking cessation. Treatment Plan: [] Disposition: Discharge Impression: Acute bronchitis This note was generated with [employer] dictation software. It may contain incorrect words, spelling, and punctuation that were not noted in review of the chart prior to signing ED Disposition - Plan for ED Patient: Chief Complaint: Cold Sx Referrals: Yohannes Downey MD [Primary Care Provider] -
--- NOTE | 2018-04-03 08:28 | ED.DCSUM_ITS ---
- ER Visit Summary Date of Service: 04/03/18 Chief Complaint: Cough History of Present Illness: The patient is a 33 F who has had a cough and sinus congestion for 2 weeks. She describes nasal congestion with a runny nose. She has had a productive cough as well. She was seen a couple weeks ago and diagnos ed with bronchitis. She was given azithromycin, steroids and albuterol inhaler. She continues to smoke while using the albuterol inhaler. She has tried DayQuil but has not helped. She did not check her temperature at home but has felt chilled. She does not get a flu shot ever. Physical Examination: Signs reviewed. Heart rate significant at 127. HEENT exam reveals normal tympanic membranes. She does have some slight posterior oropharyngeal erythema without tonsillar swelling or exudates. Heart is tachycardic and regular rhythm without murmurs. Lungs have end expiratory wheezing diffusely. Abdomen soft and nontender. Her neurologic exam is at baseline. Skin exam reveals no rashes. Test Results: None performed Emergency Department Course and Treatment: Patient will be treated with doxycycline, Medrol Dosepak and Mucinex D. She will be treated with antibiotics due to the longevity of the patient's symptoms. She will need follow-up with her PCP for further testing if her symptoms persist. She was also counseled on smoking cessation. Treatment Plan: [] Disposition: Discharge Impression: Acute bronchitis This note was generated with [employer] dictation software. It may contain incorrect words, spelling, and punctuation that were not noted in review of the chart prior to signing ED Disposition - Plan for ED Patient: Chief Complaint: Cold Sx Referrals: Yohannes Downey MD [Primary Care Provider] -
--- NOTE | 2018-04-03 08:28 | ED.DEP ---
ED Disposition - Plan for ED Patient: Disposition: Home or Assisted Living Chief Complaint: Cold Sx Instructions: ED Upper Resp Infec Abx Tx Prescriptions: MethylPREDNISolone DosePak [Medrol DosePak] 4 mg PO UD #1 box Doxycycline Monohydrate 100 mg PO BID #14 cap Guaifenesin/Pseudoephedrne HCl [Mucinex D ER Tablet] 1 ea PO BID #14 tab.er.12h Referrals: Yohannes Downey MD [Primary Care Provider] -
== END 2018-04-03 08:50 | disposition home or self-care (01) ==
LOC: ED 08:43
PROVIDERS: Emergency Provider Emergency Medicine; Family Provider Family Medicine; PCP Family Medicine
DX: J20.9 Acute bronchitis, unspecified (principal); G43.909 Migraine, unspecified, not intractable, without status migrainosus; Z72.0 Tobacco use
CPT/HCPCS: 99282

== ENCOUNTER 2018-07-14 16:09 | Emergency (ER) | payer MEDICAID, SELFPAY ==
[2018-07-14 16:09] VITALS: BMI 30.2
[2018-07-14 16:10] VITALS: BP 119/77; PULSE 101; RESP 16; TEMP 36.6; O2SAT 96; BMI 33.5
--- NOTE | 2018-07-14 16:21 | ED.VISSUMM ---
- ER Visit Summary Date of Service: 07/14/18 Chief Complaint: Cough, fever, chills History of Present Illness: The patient is a 33 F presents to the emergency department cough, fever, chills. The patient does have a history of asthma and does smoke. She states for the past few days, she had arthralgias and myalgias. States over the past 24 hours, her cough is worsened. She does describe some productive sputum. She has had a fever as high as 102. She did take ibuprofen with some relief. She denies any chest pain. She denies orthopnea. She denies any other systemic symptoms. The patient is otherwise been in her normal state of health. She denies any recent sick contacts. Physical Examination: Vital signs reviewed General: Well-nourished, well-developed Head: Normocephalic, atraumatic Eyes: Pupils equal and reactive, extraocular muscles intact Neck, supple, no lymphadenopathy Heart: Regular rate and rhythm Respiratory: No distress, wheezing throughout all renteria Abdomen: Soft, nontender, nondistended, no peritoneal signs Back: Nontender Extremities: Nontender, no edema, no cords Skin: Normal color no rash Neuro: Alert and oriented, no focal or lateralizing deficits Wheezing throughout all lung renteria Test Results: [] Emergency Department Course and Treatment: The patient has had cough with upper respiratory symptoms. Been going on fo over 4 days. She is outside the window for Tamiflu treatment. I did obtain a chest x-ray. This was clear. She refused aerosol treatment. I do feel the patient safe outpatient therapy. I am going to place her on prednisone given her history of underlying lung disease. I do not see a clear indication for antibiotics. She also given cough suppressants. The patient was counseled on concerning symptoms and reasons to return. She will be discharged home. Treatment Plan: [] Disposition: Discharge Impression: 1. Viral bronchitis This note was generated with [employer] dictation software. It may contain incorrect words, spelling, and punctuation that were not noted in review of the chart prior to signing ED Disposition - Plan for ED Patient: Chief Complaint: Fever Instructions: ED Upper Resp Infec No Abx Tx Prescriptions: Benzonatate [Tessalon Perle] 200 mg PO TID PRN PRN #20 cap PRN Reason: Cough Prednisone 10 mg PO UD #33 tab Referrals: Yohannes Downey MD [Primary Care Provider] -
[2018-07-14] MEDS: predniSONE 20 MG Tablet 60 MG PO (16:24)
[2018-07-14] MEDS: Acetaminophen 500 MG Tablet 1000 MG PO (16:24)
--- NOTE | 2018-07-14 16:30 | RAD_ITS ---
STUDY: X-RAY CHEST REASON FOR EXAM: Female, 33 years old. Fever and body aches. TECHNIQUE: Frontal and lateral views of the chest. COMPARISON: 03/16/2018. FINDINGS: The lungs are clear and expanded. There is no demonstrated pleural abnormality. Normal size heart. Normal mediastinum and amauri. Normal visualized pulmonary arteries. Normal visualized aortic arch and descending thoracic aorta. Normal visualized thoracic spine. Normal visualized ribs, clavicles, and shoulders. There is no demonstrated abnormality of the visualized soft tissue structures of the upper abdomen. RAD/Chest PA and Lateral IMPRESSION: Normal x-ray examination of the chest. Electronically Signed: Daniel Sneed MD at 16:54 EST , Service support ,
[2018-07-14 17:21] VITALS: TEMP 36.8
== END 2018-07-14 17:23 | disposition home or self-care (01) ==
PROVIDERS: Emergency Provider Emergency Medicine; Family Provider Family Medicine; PCP Family Medicine
DX: J20.8 Acute bronchitis due to other specified organisms (principal); J45.909 Unspecified asthma, uncomplicated; Z72.0 Tobacco use
CPT/HCPCS: 71046; 87804; 99283

== ENCOUNTER 2019-05-22 10:35 | Emergency (ER) | payer MEDICAID, SELFPAY ==
[2019-05-22 10:36] VITALS: BP 141/81; PULSE 98; RESP 16; TEMP 36.7; O2SAT 97; BMI 28.3
--- NOTE | 2019-05-22 10:47 | CT_ITS ---
STUDY: CT BRAIN WITHOUT CONTRAST REASON FOR EXAM: Female, 34 years old. Headaches. RADIATION DOSAGE (If Supplied By Facility): CTDIvol = ( 44.99 ) mGy, DLP = ( 745.49 ) mGycm TECHNIQUE: Transaxial CT imaging of the brain was performed without administration of intravenous contrast material. Individualized dose optimization techniques were used for this CT. COMPARISON: No relevant priors. FINDINGS: Normal soft tissue structures. Normal calvarium. Normal size ventricles and extra-axial spaces for the patient's age. Normal white matter tracts of the cerebral hemispheres. Normal basal ganglia and thalami. Normal brainstem. Normal cerebellum. There is no intracranial hemorrhage. There are no findings of an acute ischemic infarction. Normal visualized paranasal sinuses. CT/Brain/Head without Contrast IMPRESSION: Normal unenhanced CT scan of the brain. Electronically Signed: Gil Galvan, at 12:27 EST , Service support ,
--- NOTE | 2019-05-22 10:56 | ED.VIS.GEN ---
History of Present Illness Chief Complaint: Headache Informant: Patient Onset: Days Context: Gradual Onset Timing: Intermittent Current Severity: Moderate Maximum Severity: Moderate Narrative: The patient presents to the emergency department with headache. She does have history of migraine and chronic daily headache. She has been seen multiple times in the emergency department for headache. She was offered neurology follow-up, but states that she never followed up because I am just scared they will find something. She states that her mother had an aneurysm in the past. She states for the past 3 months, she is had persistent daily headache, but over the past 3 days, she has had migrainous type features. She is been nausea without vomiting. He states that she also feels anxious with a headache. She denies any fevers or chills. She denies any trauma. Prior similar symptoms: Yes Recent Illness/Hospitalization: No Past Medical History - Allergies and Home Meds Allergies/Adverse Reactions: Allergies Sulfa (Sulfonamide Antibiotics) Allergy (Verified 05/22/19 10:35) Rash Primary Care Physician: Yohannes Downey MD [Primary Care Provider] - Prior records reviewed: Yes Surgical History: noncontributory Smoking Status: Current every day smoker Review of Systems General: Denies: Chills, Fever, Sweats Eyes: Denies: Visual changes - bilaterally, Diplopia ENT: Denies: Rhinorrhea, Sore throat Cardiovascular: Denies: Chest pain, Palpitations Respiratory: Denies: Dyspnea, Cough, Dyspnea on exertion Gastrointestinal: Reports: Nausea. Denies: Abdominal pain, Vomiting, Diarrhea, Melena, Hematochezia Genitourinary: Denies: Dysuria, Hematuria, Frequency Musculoskeletal: Denies: Back pain, Extremity Pain Skin: Denies: Rash, Wounds Neurological: Reports: Headache. Denies: Weakness, Numbness Physical Exam Vital Signs/Narrative: Vital Signs Temp Pulse Resp BP Pulse Ox 05/22/19 10:36 98.1 F 98 16 141/81 H 97 Inital Vital Signs reviewed: Yes General: Well nourished, Well developed, No Acute Distress Head: Normocephalic, Atraumatic Eyes: Perrl, EOMI ENT: Moist mucous membranes, No rhinorrhea Neck: Supple, Nontender Cardiovascular: Regular rate, Regular rhythm, No murmurs Respiratory: No distress, CTA bilaterally, Chest nontender Abdomen: Soft, Nontender, Nondistended, Normal bowel sounds Back: Nontender, Normal Inspection Extremities: Nontender, No edema Skin: Normal color, No rash Neurological: Alert, Oriented x3, Cranial nerves II-XII grossly intact, Normal Strength, Normal Sensation Psychological: Normal affect, Normal Mood Diagnostic/Tx/Re-eval Clinical Impression(s) from Imaging Studies Brain CT 05/22/19 10:47 IMPRESSION: Normal unenhanced CT scan of the brain. Electronically Signed: Gil Galvan, at 12:27 EST , Service support , - Medical Decision Making The patient has migrainous component to her headache and also findings that are consistent with chronic daily headache. Given her family history, noncontrast head CT was obtained. This is unremarkable. The patient was treated with migraine abortive medications with marked improvement. She is also given a dose of Decadron to prevent rebound headache. She will be kept on Fioricet for headache control. She was counseled on the importance of following up with neurology. She will be discharged home. Impression 1. Migraine headache ED Disposition - Plan for ED Patient: Instructions: ED, Migraine (Classical) Prescriptions: Acetaminophen/Butalbital/Caffe [Fioricet] 1 tab PO Q4H PRN PRN #20 tab PRN Reason: Headache Prescription Printed Referrals: Yohannes Downey MD [Primary Care Provider] -
[2019-05-22] MEDS: DiphenhydrAMINE 50 MG/ML Syringe IV (11:17)
[2019-05-22] MEDS: Ketorolac 30 MG/ML Syringe IV (11:18)
[2019-05-22] MEDS: proCHLORPERazine 10 MG/2 ML Vial IV (11:19)
[2019-05-22] MEDS: dexAMETHasone 10 MG/ML Vial IV (12:41)
[2019-05-22 12:59] VITALS: BP 107/58; PULSE 59; RESP 16; O2SAT 98
== END 2019-05-22 13:01 | disposition home or self-care (01) ==
LOC: ED 11:03
PROVIDERS: Emergency Provider Emergency Medicine; Family Provider Family Medicine; PCP Family Medicine
DX: G43.909 Migraine, unspecified, not intractable, without status migrainosus (principal); F17.200 Nicotine dependence, unspecified, uncomplicated; Z88.2 Allergy status to sulfonamides
CPT/HCPCS: 70450; 99283; J7030; A4216

== ENCOUNTER 2019-06-04 19:32 | Emergency (ER) | payer MEDICAID, SELFPAY ==
[2019-06-04 19:32] VITALS: BP 136/79; PULSE 92; RESP 17
[2019-06-04 19:33] VITALS: BP 136/79; PULSE 95; RESP 17; TEMP 36.7; O2SAT 97; BMI 32.1
--- NOTE | 2019-06-04 20:35 | ED.VIS.GEN ---
History of Present Illness Chief Complaint: Headache Informant: Patient Onset: Today Narrative: Reports burning sensation occipital region few hours ago. History of migraines however states this is different. States no swelling right facial region. No fevers. Took Benadryl 30 minutes ago. Nausea without vomiting. Allergies to sulfa. Denies any recent falls or head injuries, reports that concussion a year ago. Reports that CT scans and MRIs in the past. She states had a CT scan here recently in the emergency room less than 2 weeks ago. No visual changes. Review of records noted on the third [address] brain. Prior similar symptoms: No Past Medical History - Allergies and Home Meds Allergies/Adverse Reactions: Allergies Sulfa (Sulfonamide Antibiotics) Allergy (Verified 06/04/19 19:32) Rash Primary Care Physician: Yohannes Downey MD [Primary Care Provider] - Surgical History: noncontributory Smoking Status: Current every day smoker Review of Systems General: Denies: Chills, Fever, Sweats Eyes: Denies: Visual changes - bilaterally, Diplopia ENT: Denies: Rhinorrhea, Sore throat Cardiovascular: Denies: Chest pain, Palpitations Respiratory: Denies: Dyspnea, Cough, Dyspnea on exertion Gastrointestinal: Reports: Nausea. Denies: Abdominal pain, Vomiting, Diarrhea, Melena, Hematochezia Genitourinary: Denies: Dysuria, Hematuria, Frequency Musculoskeletal: Denies: Back pain, Extremity Pain Skin: Denies: Rash, Wounds Neurological: Reports: Headache. Denies: Weakness, Numbness Physical Exam Vital Signs/Narrative: Vital Signs Temp Pulse Resp BP Pulse Ox 06/04/19 19:33 98.1 F 95 17 136/79 H 97 06/04/19 19:32 92 17 136/79 H Inital Vital Signs reviewed: Yes General: Well nourished, Well developed, No Acute Distress Head: Normocephalic, Atraumatic, Tenderness, - - Tenderness along the scalp posteriorly there is no rash. Eyes: Perrl, EOMI ENT: Moist mucous membranes, No rhinorrhea, TM's clear Neck: Supple, Nontender, - - No meningismus Cardiovascular: Regular rate, Regular rhythm, No murmurs Respiratory: No distress, CTA bilaterally, Chest nontender Abdomen: Soft, Nontender, Nondistended, Normal bowel sounds Back: Nontender, Normal Inspection Extremities: Nontender, No edema Skin: Normal color, No rash Neurological: Alert, Oriented x3, Cranial nerves II-XII grossly intact, Normal Strength, Normal Sensation Psychological: Normal affect, Normal Mood Diagnostic/Tx/Re-eval - Medical Decision Making Patient with no focal neurological deficits. Took Benadryl prior to arrival. No meningismus. She had normal CT 13 days ago. Treated with Reglan IV and Toradol, she declined the fluids. She reported to nursing that she was ready to go, on my reevaluation patient was not in the room. She left without paperwork. ED Disposition - Plan for ED Patient: Disposition: Home or Assisted Living Diagnosis: Cephalgia Referrals: Yohannes Downey MD [Primary Care Provider] -
[2019-06-04] MEDS: Metoclopramide 10 MG/2 ML Vial IV (21:25)
[2019-06-04] MEDS: Ketorolac 30 MG/ML Syringe IV (21:25)
--- NOTE | 2019-06-04 22:05 | ED.RN ---
pt room empty when entered to discuss d/c. pt no where in department or waiting room. iv was d/c and intact prior to pt leaving.
== END 2019-06-04 22:06 | disposition home or self-care (01) ==
PROVIDERS: Emergency Provider Emergency Medicine; Family Provider Family Medicine; PCP Family Medicine
DX: R51 Headache (principal); Z88.2 Allergy status to sulfonamides; F17.200 Nicotine dependence, unspecified, uncomplicated
CPT/HCPCS: 96361; 96374; 96375; 99284; J7030; A4216

== ENCOUNTER 2021-02-23 11:53 | Emergency (ER) | payer MEDICAID, SELFPAY ==
[2021-02-23 11:53] VITALS: BP 122/84; PULSE 93; RESP 17; TEMP 37; O2SAT 97; BMI 32.6
--- NOTE | 2021-02-23 13:05 | RAD_ITS ---
EXAM: XR LUMBOSACRAL SPINE, 2 OR 3 VIEWS : 1985 CLINICAL INDICATION: back pain TECHNIQUE: Frontal and lateral views of the lumbar spine and sacrum. This report was created using [employer] report [employer] technology. COMPARISON: None. FINDINGS: VERTEBRAE: Unremarkable. Preserved vertebral body height. No fracture. No spondylolisthesis. Preservation of the normal lumbar lordosis. No significant facet arthropathy. DISC SPACES: No acute findings. Disc spaces are maintained. GASTROINTESTINAL TRACT: Unremarkable as visualized. Included bowel gas pattern is non-obstructive. RAD/Lumbar Spine 2 or 3 Views IMPRESSION: No evidence of lumbar spinal fracture or spondylolisthesis. at 1355 Reported and signed by: Erick Poole MD Electronically Signed: Erick Poole MD at 13:54 EDT Tel , Service support ,
--- NOTE | 2021-02-23 15:32 | ED.VIS.BACK ---
HPI History of Present Illness Chief Complaint: Back Informant: patient Onset/Context/Timing Onset: Days Context: Gradual Onset Location: Lumbar and Right Leg Current Severity: Mild Maximum Severity: Mild Worsened by: improves with Movement Relieved by: Remaining Still Associated Symptoms Associated Symptoms: Radiation to Right Leg; Negative for Numbness, Tingling, Radiation to Left Leg, Fever, Abdominal Pain, Dysuria, Unable to Ambulate, Unable to Transfer, Urinary Retention, Urinary Incontinence, Constipation and Fecal Incontinence Narrative Narrative: 36-year-old female has been told she has degenerative disc disease in her lumbar spine from prior MRI. States the last 3 days she has had lower lumbar back pain at times radiating to her right buttock and hamstring. No fever or chills. No falls, trauma or injury. No prior back surgery. No bowel or bladder incontinence or retention. No numbness or weakness. Prior similar symptoms: Yes Recent Illness/Hospitalization: No [facility] Medical History Anxiety Migraine Panic attack Allergy/AdvReac Type Severity Reaction Status Date / Time Sulfa (Sulfonamide Allergy Rash Verified 06/04/19 19:32 Antibiotics) Social History Smoking Status: Current every day smoker tobacco type: cigarettes ROS ROS ED ROS Narrative No recent illness. Review of Systems ROS Unobtainable: Denies due to encephalopathy Constitutional Constitutional ED: Denies fever(s) Eyes Eyes: Denies change in vision ENT ENT ED: Denies ear pain Cardiovascular Cardiovascular: Denies chest pain Respiratory/Chest Respiratory/Chest: Denies dyspnea or sputum Gastrointestinal Gastrointestinal: Denies abdominal pain, diarrhea, nausea or vomiting Genitourinary Genitourinary ED: Denies dysuria Musculoskeletal Musculoskeletal: Reports back pain; Denies myalgias Integumentary Denies rash Neurologic Neurologic: Denies headache(s) Psychiatric Psychiatric: Denies depression Endocrine Endocrinology: Denies polyuria Hematologic/Lymphatic Hematologic/Lymphatic: Denies easy bruising Allergic/Immunologic Allergic/Immunologic ED: Denies urticaria EXAM Physical Exam Narrative Exam Narrative: 36-year-old female no acute distress. Vital signs stable afebrile. HEENT exam unremarkable. Lungs are clear. Heart regular rate and rhythm. Abdomen soft nontender. Normal bowel sounds no peritoneal signs. No pulsatile mass. Moving all 4 extremities. Neurovascularly intact. No cauda equina. No saddle anesthesia. Positive straight leg raise on the right. 5 out of 5 measurement technician strength both upper extremities. Dorsi plantarflexion intact in lower extremities. Const Vital Signs: 02/23/21 11:53 Temperature 98.6 F Temperature Source Temporal Pulse Rate 93 Respiratory Rate 17 Blood Pressure 122/84 H Blood Pressure Mean 96 Pulse Ox 97 Oxygen Delivery Method Room Air Positive well nourished and well developed; Negative for unkempt General Appearance ED: well developed and NAD; Negative for unkempt or pallor HEENT Reports moist mucous membranes Negative for trauma or tenderness Eyes PERRL and EOMs intact bilaterally Neck no lymphadenopathy, supple and no JVD General: Negative for tenderness Resp normal respiratory effort and clear to auscultation bilaterally Cardio regular rate, regular rhythm, S1 normal heart sound, S2 normal heart sound and no murmurs GI normal to inspection, nondistended, normoactive bowel sounds, soft to palpation, non-tender, non-distended and no masses Palpation: Negative for tender, guarding or rebound tenderness present Back/Spine normal to inspection; Negative for no thoracic nor lumbar tenderness Back/Spine Narrative: Pain of a palpation lumbar spine and right SI joint. General Back: Negative for CVA tenderness Lumbar Spine / Lower Back: straight leg raise positive right Extremity normal to inspection General Extremety ED: Negative for edema or tenderness General Extremity: Negative for edema Neuro oriented x3 and no sensory deficits noted Sensorium / Orientation: alert; Negative for confused, lethargic or stuporous Motor Exam: strength 5/5 throughout Psych mental status grossly normal Appearance: Negative for unkempt Skin no rashes or lesions noted and no wounds General Skin Exam: Negative for jaundice or pallor Rashes: No rashes noted Trauma: Negative for abrasion MDM MDM MDM Narrative Medical decision making narrative: 36-year-old with acute on chronic low back pain. Worse in the morning better throughout the day. Radiating to her right buttock. No prior back surgery. Exam is consistent with acute right sciatica. There is no weakness. No cauda equina. Radiography Diagnostic Testing: Radiology Impression Lumbar Spine X-Ray 02/23/21 13:05 IMPRESSION: No evidence of lumbar spinal fracture or spondylolisthesis. at 1355 Reported and signed by: Erick Poole MD Electronically Signed: Erick Poole MD at 13:54 EDT Tel , Service support , X-ray ordered by nursing protocol in triage. Shows no acute abnormality. AP and lateral views of the lumbar spine. Also read by the radiologist. Discharge Plan Triage Chief Complaint: Back ED Provider: Kel Garcia Dx/Rx/DC Orders Clinical Impression: Acute right-sided back pain with sciatica Instructions: ED Sciatica Primary Care Provider: Yohannes Downey Referrals: Yohannes Downey MD [Primary Care Provider] - 1 Week if not improving Activity Restrictions/Additional Instructions: Ice to back to decrease inflammation. Hot shower and warm compresses to decrease muscle spasms. Motrin for pain and inflammation. You may also use either ibuprofen, Advil or Aleve. Tylenol is okay for pain will do nothing for inflammation. Follow-up with your doctor if not improving. Return if weakness, incontinence or fever. Disposition Disposition: Home, Self Care
[2021-02-23 15:34] VITALS: BP 113/69; PULSE 60; RESP 16; O2SAT 98
== END 2021-02-23 15:41 | disposition home or self-care (01) ==
PROVIDERS: Emergency Provider Emergency Medicine; PCP Family Medicine
DX: M54.31 Sciatica, right side (principal); F17.210 Nicotine dependence, cigarettes, uncomplicated
CPT/HCPCS: 72100; 99282; A4216

== ENCOUNTER 2021-08-15 09:01 | Emergency (ER) | payer MEDICAID, SELFPAY ==
[2021-08-15 09:02] VITALS: BP 119/74; PULSE 89; RESP 16; TEMP 36.2; O2SAT 100; BMI 31.9
--- NOTE | 2021-08-15 09:27 | CT_ITS ---
HISTORY: Pain. TECHNIQUE: Helically acquired images were obtained of the lumbar spine. 2D reformats were reviewed. A radiation dose optimization technique was used for this scan. # of images incl. paperwork: 359. IV Contrast dosage and agent: None. COMPARISON: XR 02/23/2021. FINDINGS: VERTEBRAE: 5 lumbar vertebral bodies. Vertebral body heights maintained. Posterior elements intact. VERTEBRAL ALIGNMENT: No significant anterior or posterior subluxation. INTERVERTEBRAL DISCS: Mild posterior disc bulge osteophyte complex of L5-S1 resulting in minimal narrowing of thecal sac, abutment of the bilateral S1 nerve roots, and left greater than right foraminal narrowing. Other intervertebral disc heights are maintained. SOFT TISSUES: Mild iliac atherosclerosis. Hepatic steatosis. 2 mm nonobstructing right upper pole calculus. CT/Spine Lumbar without Contrast IMPRESSION: No evidence of acute fracture or dislocation in the lumbar spine. Mild degenerative disc disease of L5-S1 as described above. Right nephrolithiasis. Individualized dose optimization techniques were used for this CT. at 1058 Reported and signed by: Emily Arteaga MD Electronically Signed: Emily Arteaga MD at 10:57 EST ,
--- NOTE | 2021-08-15 09:28 | ED.VIS.BACK ---
HPI History of Present Illness Chief Complaint: Back Narrative Narrative: Patient with past medical history of bulging disc presents with increasing back pain that she has had over the last 1 to 2 weeks. She states that she has been awakening with soreness in her back in the lumbosacral area intermittently. She has been trying different strategies such as Aleve, heat, and cool compresses. She now has pain that radiates to her left hip. It can be worse with movement. She denies any fevers or chills. No nausea or vomiting. No loss of bowel or bladder. No saddle anesthesia. She presents with her brother who states that yesterday she began having increasing low back pain. She states it feels tight and she is unable to loosen it up. She denies any red flag signs for cauda equina. Past surgical history includes hysterectomy. She states over the last 4 days the soreness in her low back has been getting worse to the point where it hurts when she tries to sit up and transfer or when she moves her left lower extremity. [facility] Medical History Anxiety Back pain Migraine Panic attack Home Medications hydrocodone-acetaminophen 1 tab PO Q6H PRN 3 Days #10 tab 08/15/21 [Rx Last Taken Unknown] lamotrigine 150 mg PO DAILY 08/15/21 [History Last Taken Unknown] methylprednisolone [Medrol (Cristo)] 4 mg PO DAILY #21 tab 08/15/21 [Rx Last Taken Unknown] ondansetron 4 mg PO Q8H PRN #10 tab 08/15/21 [Rx Last Taken Unknown] venlafaxine 37.5 mg PO DAILY 08/15/21 [History Last Taken Unknown] Allergy/AdvReac Type Severity Reaction Status Date / Time Sulfa (Sulfonamide Allergy Rash Verified 08/15/21 09:04 Antibiotics) Social History Smoking Status: Current every day smoker tobacco type: cigarettes ROS ROS ED ROS Narrative Constitutional: No fever, no chills. HEENT: No sore throat. No neck pain. No loss of vision. No rhinorrhea. Cardiovascular: No chest pain. No palpitations. No pedal edema. Respiratory: No cough, no shortness of breath. Abdominal: No abdominal pain. No nausea. No vomiting. Genitourinary: No dysuria. No hematuria. Musculoskeletal: No myalgias. Low back pain with radiation, causing left hip pain. Neurologic: No headaches. No dizziness. No lightheadedness. Skin: No rash. No change in color. Psychiatric: No depression. No anxiety. EXAM Physical Exam Narrative Exam Narrative: Afebrile. Vital signs noted. HEENT: Normocephalic. Atraumatic. PERRL, EOMI. Neck soft and supple. No point tenderness or step off. Cardiovascular: Regular rate and rhythm. No murmurs, rubs, or gallops appreciated. Respiratory: No tachypnea. Lungs clear to auscultation bilaterally. Gastrointestinal: Abdomen soft, nontender, with normoactive bowel sounds. No rebound or guarding. Neurological: Awake. Alert. Nonfocal, nonlateralizing. EHL intact bilaterally. DTRs equal and symmetric bilateral lower extremities/patellar Skin: No rash. Normal color. No pallor. Musculoskeletal: No pedal edema. Limited range of motion left lower extremity secondary to pain in the low back Const Vital Signs: 08/15/21 09:02 Temperature 97.2 F L Temperature Source Temporal Pulse Rate 89 Respiratory Rate 16 Blood Pressure 119/74 Blood Pressure Mean 89 Pulse Ox 100 Oxygen Delivery Method Room Air MDM MDM MDM Narrative Medical decision making narrative: Patient was administered Toradol and Norflex for analgesia. Her urinalysis shows no evidence of infection. I did obtain a CT of her lumbar sacral spine which shows no evidence of acute fracture but there is mild degenerative disc disease of L5-S1 which is the distribution of her pain. At this point in time, I feel she be discharged safely home with follow-up to her primary care provider. She was told that she may need additional outpatient imaging after physical therapy. For analgesia she was told to avoid NSAIDs as she will be getting a prescription for Medrol dose pack. I reviewed her OARRS report which is negative. She will be given a prescription for 10 [place] tablets to take for breakthrough pain, and additional Zofran to take with this as she states she gets nauseated with narcotic pain medication. Additionally, she was told that in the future her analgesics and opiate should come from her primary care provider as needed. Disposition is discharged home in stable condition. Lab Data Labs: Laboratory Results - last 24 hr 08/15/21 11:15 Urine Color Yellow Urine Clarity Sl. Cloudy Urine pH 6.0 Ur Specific [place] 1.010 Urine Protein Negative Urine Glucose (UA) Normal Urine Ketones Negative Urine Occult Blood Negative Urine Nitrite Negative Urine Bilirubin Negative Urine Urobilinogen Normal Ur Leukocyte Esterase Negative Urine RBC 0 SEEN Urine WBC 0 SEEN Ur Squamous Epith Cells 10-25 SEEN Urine Bacteria 0 SEEN Urine Mucus 0 SEEN Discharge Plan Triage Chief Complaint: Back ED Provider: Quentin Goel Dx/Rx/DC Orders Clinical Impression: Bulging lumbar disc, Lumbar radicular pain Instructions: ED Back Pain (Acute or Chronic), ED Degenerative Disk Disease Prescriptions: New methylprednisolone [Medrol (Cristo)] 4 mg tablets,dose pack 4 mg PO DAILY Qty: 21 RF: 0 hydrocodone-acetaminophen 5-325 mg tablet 1 tab PO Q6H PRN (Reason: pain) 3 Days Qty: 10 RF: 0 ondansetron 4 mg tablet,disintegrating 4 mg PO Q8H PRN (Reason: nausea and vomiting) Qty: 10 RF: 0 No Action lamotrigine 150 mg tablet 150 mg PO DAILY RF: 0 venlafaxine 37.5 mg tablet 37.5 mg PO DAILY RF: 0 Primary Care Provider: Yohannes Downey Referrals: Yohannes Downey MD [Primary Care Provider] - 2 Days Disposition Disposition: Home, Self Care
[2021-08-15] MEDS: Orphenadrine 60 MG/2 ML Ampul IM (10:07)
[2021-08-15] MEDS: Ketorolac 60 MG/2 ML Vial IM (10:07)
[2021-08-15 11:20] LABS: Bacteria 0 SEEN /hpf (None Seen); Mucous, Urine 0 SEEN /hpf (<or=2+); Red Blood Cells-Urine 0 SEEN /hpf (0-5); White Blood Cells 0 SEEN /hpf (0-5)
[2021-08-15 11:22] LABS: Color, Urine Yellow (Yellow); Glucose, Dipstick Normal (Normal); Ketone-Dipstick Negative (Negative); Leukocyte Esterase-Dipstick Negative /ul (Negative); Nitrite-Dipstick Negative (Negative); Occult Blood-Urine Negative /ul (Negative); Protein-Dipstick Negative (Negative); Urine Bilirubin Dipstick Negative (Negative); Urine Clarity Sl. Cloudy (Clear); Urine Urobilinogen Normal (Normal)
[2021-08-15 11:28] LABS: Squamous Epithelial Cells - UA 10-25 SEEN /hpf (5-10)
[2021-08-15 11:53] VITALS: PULSE 67; RESP 16; O2SAT 97
== END 2021-08-15 11:54 | disposition home or self-care (01) ==
PROVIDERS: Emergency Provider Emergency Medicine; PCP Family Medicine; Visit Provider Emergency Medicine
DX: M51.16 Intervertebral disc disorders with radiculopathy, lumbar region (principal); M51.37 Other intervertebral disc degeneration, lumbosacral region; F17.210 Nicotine dependence, cigarettes, uncomplicated
CPT/HCPCS: 72131; 81001; 99282

== ENCOUNTER 2021-10-07 13:22 | Emergency (ER) | payer MEDICAID, SELFPAY ==
[2021-10-07 13:22] VITALS: BP 127/93; PULSE 105; RESP 13; TEMP 36.3; O2SAT 98; BMI 32.5
--- NOTE | 2021-10-07 14:07 | EDS_ITS ---
HPI History of Present Illness Chief Complaint: Chest Pain Informant: patient Onset/Context/Timing Onset: Today Activity at onset: sudden Timing: Continuous Quality: Positive for Tightness Location: Right Chest and Left Chest Worsened By: Nothing Relieved By: Nothing Associated Symptoms: Positive for Nausea, Diaphoresis, Lightheadedness, Acid Reflux and Palpitations; Negative for Vomiting, Dyspnea, Cough and Fever Narrative Narrative: Patient presents with chest pain that began today. Patient states that she had just eaten breakfast that she started feeling some tightness in her chest. Patient states that her right arm started to feel numb and tingly prior to this. Patient denies any left arm paresthesias or weakness. Patient admits to some nausea but denies any vomiting. Patient states she broke out into a sweat with this. Patient states the chest pain has been constant but the paresthesias in her right arm are intermittent. Patient states she feels ligh theaded. Patient states at times she feels her heart is racing. Patient is a smoker. Patient has 2 sisters who both have had coronary artery disease in their 30s. CVD Risk Factors: Positive for Family History 1' </=55 and Smoking; Negative for Hypertension, Diabetes and Hypercholesterolemia PE Risk Factors: Negative for Recent Travel/Surgery, Recent Immobilization, Prior DVT or PE, Cancer and OCP + Smoking + >/=35 PFSH PFSH Medical History Anxiety Back pain Bipolar 2 disorder Migraine Panic attack Home Medications hydrocodone-acetaminophen 1 tab PO Q6H PRN 3 Days #10 tab 08/15/21 [Rx Last Taken Unknown] lamotrigine 75 mg PO DAILY 08/15/21 [History Last Taken Unknown] ondansetron 4 mg PO Q8H PRN #10 tab 08/15/21 [Rx Last Taken Unknown] acetaminophen [Tylenol Ex Str Rapid Release] 500 mg PO Q6H PRN 10/07/21 [History Last Taken Unknown] Allergy/AdvReac Type Severity Reaction Status Date / Time Sulfa (Sulfonamide Allergy Rash Verified 10/07/21 13:27 Antibiotics) Social History Smoking Status: Current every day smoker tobacco type: cigarettes ROS ROS ED Constitutional Constitutional ED: Denies chills or fever(s) Eyes Eyes: Reports blurry vision; Denies change in vision ENT ENT ED: Denies rhinorrhea or sore throat Cardiovascular Cardiovascular: Reports chest pain and palpitations Respiratory/Chest Respiratory/Chest: Denies cough or dyspnea Gastrointestinal Gastrointestinal: Reports nausea; Denies abdominal pain or vomiting Genitourinary Genitourinary ED: Denies dysuria or hematuria Musculoskeletal Musculoskeletal: Denies back pain or neck pain Integumentary Denies abscess or rash Neurologic Neurologic: Reports paresthesias RUE; Denies headache(s) or weakness Allergic/Immunologic Allergic/Immunologic ED: Denies mouth swelling or urticaria EXAM Physical Exam Const Vital Signs: 10/07/21 13:22 10/07/21 13:28 10/07/21 14:18 Temperature 97.3 F L Temperature Source Temporal Pulse Rate 105 H Respiratory Rate 13 Respiratory Effort Normal Blood Pressure 127/93 H Blood Pressure Mean 104 Pulse Ox 98 Oxygen Delivery Method Room Air Room Air 10/07/21 14:42 Temperature Temperature Source Pulse Rate 79 Respiratory Rate 18 Respiratory Effort Blood Pressure 101/62 Blood Pressure Mean 75 Pulse Ox 96 Oxygen Delivery Method Room Air Positive well nourished, well developed and obese General Appearance ED: well developed and NAD Nutritional Appearance: obese HEENT normocephalic and atraumatic Eyes PERRL and EOMs intact bilaterally Neck supple and no JVD Chest Wall palpation of chest normal Resp normal respiratory effort and clear to auscultation bilaterally Effort and Inspection: Negative for respiratory distress Cardio regular rate, regular rhythm and no murmurs GI normal to inspection, nondistended, normoactive bowel sounds, soft to palpation, non-tender and non-distended Extremity normal to inspection General Extremety ED: Negative for edema or tenderness General Extremity: Negative for edema Neuro oriented x3, CN's II-XII intact bilaterally and no sensory deficits noted Sensorium / Orientation: awake and alert Motor Exam: strength 5/5 throughout Psych mental status grossly normal Mood & Affect: anxious MDM MDM MDM Narrative Medical decision making narrative: Patient was given aspirin and hydroxyzine here. EKG was obtained. On my interpretation, it showed a normal sinus rhythm with a rate of 91. SC interval, QRS interval, and QTc intervals were all normal. [place] was normal. There are no acute ST or T wave changes. Portable 1 view chest x-ray was obtained. On my interpretation, lung renteria are clear. There is normal cardiac silhouette. Bony thorax is normal. There is no acute process noted. Radiologist also interpreted the x-ray and agrees. CBC was within normal limits. Basic metabolic profile was within normal limits. D- dimer was normal. High-sensitivity troponin was less than 3. Patient was feeling better on reevaluation. Patient was advised of her findings. Patient has a HEART score of 1. Patient was advised that this is low risk for acute cardiac event. Patient was instructed to follow-up with her primary care physician in 5 to 7 days for further evaluation. Patient understood and was agreeable with the plan. All questions were answered. Lab Data Attestation: I reviewed the patient's lab results. Labs: Laboratory Results - last 24 hr 10/07/21 10/07/21 10/07/21 13:35 13:35 13:35 WBC 9.0 RBC 4.94 Hgb 15.1 H Hct 43.9 MCV 88.9 MCH 30.6 MCHC 34.4 RDW Std Deviation 40.1 RDW Coeff of Jarod 12.3 Plt Count 171 MPV 11.6 Immature Gran % (Auto) 0.300 Neut % (Auto) 61.3 Lymph % (Auto) 29.4 [place] % (Auto) 5.5 Eos % (Auto) 2.9 Baso % (Auto) 0.6 Absolute Neuts (auto) 5.5 Absolute Lymphs (auto) 2.64 Nucleated RBC % 0 D-Dimer Quant (PE/DVT) Sodium 139 Potassium 4.1 Chloride 107 Carbon Dioxide 24.0 Anion Gap 8 BUN 11 Creatinine 0.92 Estim Creat Clear Calc 63.79 Est GFR (MDRD) Af Amer 89 Est GFR (MDRD) Non-Af 73 BUN/Creatinine Ratio 12.0 Glucose 95 Calcium 9.5 Troponin I High Sens < 3 L 10/07/21 14:15 WBC RBC Hgb Hct MCV MCH MCHC RDW Std Deviation RDW Coeff of Jarod Plt Count MPV Immature Gran % (Auto) Neut % (Auto) Lymph % (Auto) [place] % (Auto) Eos % (Auto) Baso % (Auto) Absolute Neuts (auto) Absolute Lymphs (auto) Nucleated RBC % D-Dimer Quant (PE/DVT) 0.40 Sodium Potassium Chloride Carbon Dioxide Anion Gap BUN Creatinine Estim Creat Clear Calc Est GFR (MDRD) Af Amer Est GFR (MDRD) Non-Af BUN/Creatinine Ratio Glucose Calcium Troponin I High Sens Radiography Chest X-Ray - ED: 1 View, Read by ED Physician, Read by Radiologist and No Acute Disease Diagnostic Testing: Clinical Impression(s) from Imaging Studies Chest X-Ray 10/07/21 14:16 IMPRESSION: Subtle left lower lobe subsegmental atelectatic changes otherwise no evidence of acute cardiopulmonary disease. Electronically Signed: Montrell Banda MD at 14:35 EDT , EKG Initial EKG: Attestation: I personally reviewed and interpreted this EKG as follows: Interpretation: Sinus Rhythm (91) and No Acute Injury Pattern Prior EKG tracings: available for review Prior: Unchanged (08/08/2017) Discharge Plan Triage Chief Complaint: Chest Pain ED Provider: Demarcus Ghosh Dx/Rx/DC Orders Clinical Impression: Chest pain of uncertain etiology, Anxiety Instructions: ED Chest Pain, Uncertain Cause Prescriptions: No Action lamotrigine 150 mg tablet 75 mg PO DAILY RF: 0 hydrocodone-acetaminophen 5-325 mg tablet 1 tab PO Q6H PRN (Reason: pain) 3 Days Qty: 10 RF: 0 ondansetron 4 mg tablet,disintegrating 4 mg PO Q8H PRN (Reason: nausea and vomiting) Qty: 10 RF: 0 acetaminophen [Tylenol Ex Str Rapid Release] 500 mg Tablet 500 mg PO Q6H PRN (Reason: Pain) RF: 0 Primary Care Provider: Yohannes Downey Referrals: Yohannes Downey MD [Primary Care Provider] - 5-7 Days Disposition Disposition: Home, Self Care
--- NOTE | 2021-10-07 14:11 | EKG12_ITS ---
Test Reason : CHEST PAIN Blood Pressure : / mmHG Vent. Rate : 091 BPM Atrial Rate : 091 BPM P-R Int : 146 ms QRS Dur : 082 ms QT Int : 368 ms P-R-T Axes : 052 037 048 degrees QTc Int : 452 ms Normal sinus rhythm Normal ECG Confirmed by LOGAN CORCORAN, JUANITA ([id number]), editor farm journal ALYSSA OMER ([id number]) on 10/12/2021 11:42:53 AM Referred By: DAVID Confirmed By:JUANITA FORD MD
--- NOTE | 2021-10-07 14:16 | RAD_ITS ---
INDICATION: chest pain EXAMINATION/TECHNIQUE: X-RAY - XR Chest 1 View COMPARISON: 07/14/2018. FINDINGS: LINES/DEVICES: None. LUNGS: No consolidation, edema or effusion. No pneumothorax. Subtle linear subsegmental atelectatic streaks visualized overlying the left costophrenic angle. MEDIASTINUM AND CARDIOVASCULAR STRUCTURES: Cardiac silhouette not enlarged. Central airways and mediastinal contour are unremarkable. BONES AND SOFT TISSUES: Unremarkable. RAD/Chest 1 View (Portable) IMPRESSION: Subtle left lower lobe subsegmental atelectatic changes otherwise no evidence of acute cardiopulmonary disease. Electronically Signed: Montrell Banda MD at 14:35 EDT ,
[2021-10-07 14:18] LABS: Absolute Lymphocyte Count 2.64 X10^3/uL (0.83-4.51); Absolute Neutrophil Count 5.5 X10^3/uL (2.0-7.7); Basophil# 0.05 X10^3/uL; Basophil% 0.6 % (0-1); Eosinophil# 0.26 X10^3/uL; Eosinophils% 2.9 % (0-5); Hematocrit 43.9 % (37-47); Hemoglobin 15.1 g/dL (12.0-15.0); Lymphocyte # 2.64 X10^3/ul (0.83-4.51); Lymphocyte % 29.4 % (19-41); Mean Corp Hgb Conc 34.4 g/dL (32-36); Mean Corpuscular Hgb 30.6 pg (27.0-32.0); Mean Corpuscular Volume 88.9 fL (81-99); Mean Platelet Vol. 11.6 fl (6.2-12.0); Monocyte# 0.49 X10^3/uL; Monocyte% 5.5 % (0-10); NRBC Flagged by Analyzer 0 % (0-5); Neutrophil % 61.3 % (47-70); Platelet Count 171 K/mm3 (150-450); RBC Distribution Width CV 12.3 % (11.6-14.6); RBC Distribution Width SD 40.1 fl (35.1-43.9); Red Blood Count 4.94 M/mm3 (4.2-5.4)
[2021-10-07] MEDS: hydrOXYzine PAM 25 MG Capsule PO (14:19)
[2021-10-07] MEDS: Aspirin 81 MG TAB.CHEW 324 MG PO (14:19)
[2021-10-07 14:31] LABS: Anion Gap 8 (5-15); BUN 11 mg/dL (7-18); Calcium,Total 9.5 mg/dL (8.5-10.1); Chloride 107 mmol/L (98-107); Creatinine, Serum 0.92 mg/dL (0.55-1.02); EST Glomerular Filtration Rate 73 mL/min (>60); Est Glom Filt Rate - Afr Amer 89 mL/min (>60); Estimated Creatinine Clearance 63.79 ml/min; Glucose 95 mg/dL (74-106); Potassium 4.1 mmol/L (3.5-5.1); Sodium Level 139 mmol/L (136-145)
[2021-10-07 14:40] LABS: Troponin-I HS (w/2H Reflex) < 3 pg/mL (3.0-54.0)
[2021-10-07 14:42] VITALS: BP 101/62; PULSE 79; RESP 18; O2SAT 96
[2021-10-07 15:07] VITALS: PULSE 82; RESP 16; O2SAT 95
[2021-10-07 16:23] LABS: Reflex Troponin-HS? (from REC) Y
== END 2021-10-07 15:12 | disposition home or self-care (01) ==
PROVIDERS: Emergency Provider Emergency Medicine; PCP Family Medicine; Visit Provider Emergency Medicine
DX: R07.9 Chest pain, unspecified (principal); E11.9 Type 2 diabetes mellitus without complications; F41.9 Anxiety disorder, unspecified; R11.0 Nausea; E78.00 Pure hypercholesterolemia, unspecified; F17.210 Nicotine dependence, cigarettes, uncomplicated; I25.10 Atherosclerotic heart disease of native coronary artery without angina pectoris
CPT/HCPCS: 71045; 80048; 84484; 85025; 85379; 93005; 99284; A4216

== ENCOUNTER 2021-11-09 02:06 | Emergency (ER) | payer MEDICAID, SELFPAY ==
[2021-11-09 02:07] VITALS: BP 120/85; PULSE 73; PULSE 95; RESP 18; TEMP 36.4; O2SAT 96; O2SAT 99; BMI 32.1
--- NOTE | 2021-11-09 02:35 | RAD_ITS ---
STUDY: X-RAY CHEST REASON FOR EXAM: Female, 36 years old. chest pain TECHNIQUE: PA and lateral views of the chest. COMPARISON: 10/07/2021. FINDINGS: There is minimal lingular atelectasis, otherwise lung renteria are clear. There is no demonstrated pleural abnormality. Normal size heart. Normal mediastinum and amauri. Normal visualized pulmonary arteries. Normal visualized aortic arch and descending thoracic aorta. Normal visualized thoracic spine. Normal visualized ribs, clavicles, and shoulders. There is no demonstrated abnormality of the visualized soft tissue structures of the upper abdomen. RAD/Chest PA and Lateral IMPRESSION: Minimal lingular atelectasis, otherwise normal chest x-ray for age. Electronically Signed: Saba Broussard MD at 3:25 EDT ,
--- NOTE | 2021-11-09 02:35 | EKG12_ITS ---
Test Reason : CP Blood Pressure : / mmHG Vent. Rate : 075 BPM Atrial Rate : 075 BPM P-R Int : 150 ms QRS Dur : 090 ms QT Int : 388 ms P-R-T Axes : 042 032 051 degrees QTc Int : 433 ms Normal sinus rhythm with sinus arrhythmia Normal ECG Confirmed by MADELYN CORCORAN, EYAL ([id number]), editorial cartoonist ALYSSA OMER ([id number]) on 11/10/2021 7:19:37 AM Referred By: [email or web address] Confirmed By:EYAL JOSHI MD
[2021-11-09] MEDS: Ketorolac 30 MG/ML Syringe IV (02:46)
[2021-11-09] MEDS: Ondansetron 4 MG/2 ML Vial IV (02:46)
[2021-11-09] MEDS: 0.9% Normal Saline 1,000 ML 1000 ML IV (02:46)
--- NOTE | 2021-11-09 02:51 | ED.VIS.CHEST ---
HPI History of Present Illness Chief Complaint: Chest Pain Informant: patient Onset/Context/Timing Onset: Today (around 45 min prior to arrival) Activity at onset: gradual, onset and rest (Lying in bed) Timing: Continuous Quality: Positive for Sharp Location: Right Chest (close to shoulder/coracoid process) Current Severity: Moderate Maximum Severity: Moderate Worsened By: Movement of Arm and Movement of Torso Relieved By: Remaining Still Associated Symptoms: Positive for Nausea, Dyspnea and Lightheadedness; Negative for Vomiting, Diaphoresis, Cough and Palpitations Narrative Narrative: Patient states she was lying in bed, she started feeling pain and tingling from her neck down her right upper extremity into her fingers. Does not involve her thumb but involves the other 4 fingers 2-5. She also felt lightheaded and nauseated. About 25 minutes later she started having discomfort in her right chest. She states she has an anxiety disorder, and apologizes because she is feeling very anxious. She states she has had low back pain for the last month or 2 along with sciatica down her left lower extremity and was diagnosed with a disc problem in her lumbar spine. She is a longtime heavy smoker. She denies any injury recently. She denies any bowel or bladder dysfunction. She denies any near-syncope or syncope. No dyspnea, diaphoresis, or vomiting/diarrhea. No history of DVT or PE, no recent calf pain or swelling, immobilization, long travel. PE Risk Factors: Negative for Recent Travel/Surgery, Recent Immobilization, Prior DVT or PE, Cancer and OCP + Smoking + >/=35 PFSH PFSH Medical History Anxiety Back pain Bipolar 2 disorder Migraine Panic attack Home Medications acetaminophen [Tylenol Ex Str Rapid Release] 500 mg PO Q6H PRN 10/07/21 [History Last Taken Unknown] prednisone 40 mg PO DAILY 5 Days #10 tablet 11/09/21 [Rx Last Taken Unknown] Allergy/AdvReac Type Severity Reaction Status Date / Time Sulfa (Sulfonamide Allergy Rash Verified 10/07/21 13:27 Antibiotics) Social History Smoking Status: Current every day smoker tobacco type: cigarettes ROS ROS ED Constitutional Constitutional ED: Denies chills or fever(s) Eyes Eyes: Denies change in vision or diplopia ENT ENT ED: Denies rhinorrhea or sore throat Cardiovascular Cardiovascular: Reports chest pain and lightheadedness; Denies palpitations or racing heartbeat Respiratory/Chest Respiratory/Chest: Reports wheezing; Denies cough Gastrointestinal Gastrointestinal: Reports nausea; Denies abdominal pain, diarrhea or vomiting Genitourinary Genitourinary ED: Denies dysuria or hematuria Musculoskeletal Musculoskeletal: Reports back pain, extremity pain and neck pain Integumentary Denies abscess or rash Neurologic Neurologic: Reports as per HPI, paresthesias and radicular pain; Denies abnormal gait, headache(s) or weakness Psychiatric Psychiatric: Reports anxiety; Denies suicidal thoughts EXAM Physical Exam Const Vital Signs: 11/09/21 02:07 11/09/21 02:19 11/09/21 02:42 Temperature 97.6 F L Temperature Source Temporal Pulse Rate 73 Respiratory Rate 18 Respiratory Effort Normal Non-Labored Blood Pressure 120/85 H Blood Pressure Mean 96 Pulse Ox 99 Oxygen Delivery Method Room Air Room Air 11/09/21 03:16 Temperature Temperature Source Pulse Rate 57 L Respiratory Rate 18 Respiratory Effort Blood Pressure 134/90 H Blood Pressure Mean 104 Pulse Ox 99 Oxygen Delivery Method Room Air Positive well nourished and well developed General Appearance ED: well developed and NAD HEENT Reports moist mucous membranes normocephalic and atraumatic Eyes PERRL and EOMs intact bilaterally Neck full ROM, no lymphadenopathy and supple Neck Narrative: Tenderness throughout both paraspinal areas of the neck General: tenderness Chest Wall inspection of chest normal Chest Narrative: Tender in right upper chest Chest: tenderness Resp normal respiratory effort Resp Narrative: Expiratory wheezes throughout all renteria. Trachea midline. No respiratory distress. Otherwise clear lungs. Cardio regular rate, regular rhythm, no murmurs and peripheral pulses 2+ throughout GI non-tender and non-distended Auscultation: normoactive bowel sounds Palpation: soft Back/Spine no CVA tenderness General Back: other FROM Extremity normal to inspection General Extremety ED: Negative for edema, pulses abnormal or tenderness General Extremity: Negative for edema or pulses abnormal Neuro oriented x3 and CN's II-XII intact bilaterally Neuro Narrative: Tenderness and subjective dysesthesias in the right upper extremity, the thumb is spared but the other 4 fingers are involved, and the radial aspect of the forearm is less affected. Sensorium / Orientation: awake and alert Motor Exam: strength 5/5 throughout Psych thought process normal and cooperative Activity / Motor Behavior: psychomotor agitation Mood & Affect: anxious Skin no rashes or lesions noted and no wounds Heart Score History: Slightly/Non-Suspicious ECG: Normal Age: </= 45 years Risk Factors: 1 or 2 Risk Factors Troponin: </= Normal Limit Score: 1 MDM MDM MDM Narrative Medical decision making narrative: PERC score is 0, no need for further work-up for pulmonary embolus. She was given an albuterol nebulizer for the wheezing/chest discomfort in addition to Toradol, Zofran, IV fluids for all of her symptoms. This helped all of her symptoms. In addition to chest x-ray, I also obtained cervical spine x-rays. On my interpretation, 2 view chest x-ray and 3 view cervical spine x-rays are negative for any acute. Radiology in agreement. She felt a little better after the medications and albuterol treatments but still very anxious and admittedly so. She may have a C7-C8 cervical radiculopathy. She is also very tender in the coracoid process area which I think is the right sided chest discomfort she is describing. This could be subcoracoid bursitis, short head biceps tendinitis, infraspinatus tendinitis. She has 1 set of negative cardiac enzymes, her EKG is normal and these are not angina symptoms so I do not think she needs to wait for a delta troponin. She states she is tired and wants to go home, I think starting her on a short burst of prednisone prior to outpatient follow-up would be reasonable and she is agreeable to that. Lab Data Attestation: I reviewed the patient's lab results. Labs: Laboratory Results - last 24 hr 11/09/21 11/09/21 11/09/21 02:15 02:15 02:53 WBC Cancelled 8.8 Corrected WBC Cancelled RBC Cancelled 4.41 Hgb Cancelled 13.5 Hct Cancelled 39.3 MCV Cancelled 89.1 MCH Cancelled 30.6 MCHC Cancelled 34.4 RDW Std Deviation Cancelled 39.9 RDW Coeff of Jarod Cancelled 12.2 Plt Count Cancelled 143 L MPV Cancelled 11.6 Immature Gran % (Auto) Cancelled 0.300 Neut % (Auto) Cancelled 51.3 Lymph % (Auto) Cancelled 39.7 [place] % (Auto) Cancelled 4.4 Eos % (Auto) Cancelled 3.6 Baso % (Auto) Cancelled 0.7 Absolute Neuts (auto) Cancelled 4.5 Absolute Lymphs (auto) Cancelled 3.49 Total Counted Cancelled Neutrophils % (Manual) Cancelled Band Neutrophils % Cancelled Lymphocytes % (Manual) Cancelled Monocytes % (Manual) Cancelled Eosinophils % (Manual) Cancelled Basophils % (Manual) Cancelled Metamyelocytes % Cancelled Myelocytes % Cancelled Promyelocytes % Cancelled Blast Cells % Cancelled Plasma Cell % (Manual) Cancelled Other Cells % Cancelled Nucleated RBC % Cancelled 0 Nucleated RBCs/100 WBC Cancelled Differential Comment Cancelled Diff Path Review Cancelled Hypersegmented Neuts Cancelled Atypical Lymphocytes Cancelled Reactive Lymphocytes Cancelled Smudge Cells Cancelled Toxic Granulation Cancelled Toxic Vacuolation Cancelled Dohle Bodies Cancelled Meseret Rods Cancelled Platelet Estimate Cancelled Plt Morphology Comment Cancelled RBC Morphology Cancelled Polychromasia Cancelled Hypochromasia Cancelled Poikilocytosis Cancelled Basophilic Stippling Cancelled Anisocytosis Cancelled Microcytosis Cancelled Macrocytosis Cancelled Spherocytes Cancelled Sickle Cells Cancelled Target Cells Cancelled Tear Drop Cells Cancelled Ovalocytes Cancelled Stomatocytes Cancelled Whitten-Rudolph Bodies Cancelled Sigifredo Cells Cancelled Bite Cells Cancelled Crenated Cell Cancelled Acanthocytes (Spur) Cancelled Rouleaux Cancelled Schistocytes Cancelled Sodium Cancelled Potassium Cancelled Chloride Cancelled Carbon Dioxide Cancelled Anion Gap Cancelled BUN Cancelled Creatinine Cancelled Estim Creat Clear Calc Cancelled Est GFR (MDRD) Af Amer Cancelled Est GFR (MDRD) Non-Af Cancelled BUN/Creatinine Ratio Cancelled Glucose Cancelled Calcium Cancelled Troponin I High Sens Cancelled 11/09/21 02:53 WBC Corrected WBC RBC Hgb Hct MCV MCH MCHC RDW Std Deviation RDW Coeff of Jarod Plt Count MPV Immature Gran % (Auto) Neut % (Auto) Lymph % (Auto) [place] % (Auto) Eos % (Auto) Baso % (Auto) Absolute Neuts (auto) Absolute Lymphs (auto) Total Counted Neutrophils % (Manual) Band Neutrophils % Lymphocytes % (Manual) Monocytes % (Manual) Eosinophils % (Manual) Basophils % (Manual) Metamyelocytes % Myelocytes % Promyelocytes % Blast Cells % Plasma Cell % (Manual) Other Cells % Nucleated RBC % Nucleated RBCs/100 WBC Differential Comment Diff Path Review Hypersegmented Neuts Atypical Lymphocytes Reactive Lymphocytes Smudge Cells Toxic Granulation Toxic Vacuolation Dohle Bodies Meseret Rods Platelet Estimate Plt Morphology Comment RBC Morphology Polychromasia Hypochromasia Poikilocytosis Basophilic Stippling Anisocytosis Microcytosis Macrocytosis Spherocytes Sickle Cells Target Cells Tear Drop Cells Ovalocytes Stomatocytes Whitten-Rudolph Bodies [place] Cells Bite Cells Crenated Cell Acanthocytes (Spur) Rouleaux Schistocytes Sodium 139 Potassium 3.5 Chloride 108 H Carbon Dioxide 22.0 Anion Gap 9 BUN 16 Creatinine 0.97 Estim Creat Clear Calc 60.50 Est GFR (MDRD) Af Amer 83 Est GFR (MDRD) Non-Af 69 BUN/Creatinine Ratio 16.5 Glucose 140 H Calcium 8.9 Troponin I High Sens < 3 L Radiography Diagnostic Testing: Clinical Impression(s) from Imaging Studies Chest X-Ray 11/09/21 02:35 IMPRESSION: Minimal lingular atelectasis, otherwise normal chest x-ray for age. Electronically Signed: Saba Broussard MD at 3:25 EDT Reading Location ID and State: [id number] / Proviation , Service support , Cervical Spine X-Ray 11/09/21 03:00 IMPRESSION: Mild spondylosis as described, otherwise no acute fracture or subluxation. Straightening of the cervical lordosis which may be associated with spondylosis, muscular spasm or positioning. Electronically Signed: Saba Broussard MD at 3:30 EDT , Rhythm Strip Rhythm Strip: Sinus Rhythm Rate: 75 Ectopy: None EKG Initial EKG: Attestation: I personally reviewed and interpreted this EKG as follows: Interpretation: Sinus Rhythm and No Acute Injury Pattern Comments: Normal EKG Discharge Plan Triage Chief Complaint: Chest Pain ED Provider: Miguel Patel Dx/Rx/DC Orders Clinical Impression: Cervical radiculopathy, Right-sided chest wall pain, Anxiety Instructions: Radiculopathy Cervical Prescriptions: New prednisone 20 MG tablet 40 mg PO DAILY 5 Days Qty: 10 RF: 0 No Action acetaminophen [Tylenol Ex Str Rapid Release] 500 mg Tablet 500 mg PO Q6H PRN (Reason: Pain) RF: 0 Primary Care Provider: Yohannes Downey Referrals: Yohannes Downey MD [Primary Care Provider] - 1 Week if not improving Disposition Disposition: Home, Self Care
[2021-11-09 02:58] LABS: Absolute Lymphocyte Count 3.49 X10^3/uL (0.83-4.51); Absolute Neutrophil Count 4.5 X10^3/uL (2.0-7.7); Basophil# 0.06 X10^3/uL; Basophil% 0.7 % (0-1); Eosinophil# 0.32 X10^3/uL; Eosinophils% 3.6 % (0-5); Hematocrit 39.3 % (37-47); Hemoglobin 13.5 g/dL (12.0-15.0); Lymphocyte # 3.49 X10^3/ul (0.83-4.51); Lymphocyte % 39.7 % (19-41); Mean Corp Hgb Conc 34.4 g/dL (32-36); Mean Corpuscular Hgb 30.6 pg (27.0-32.0); Mean Corpuscular Volume 89.1 fL (81-99); Mean Platelet Vol. 11.6 fl (6.2-12.0); Monocyte# 0.39 X10^3/uL; Monocyte% 4.4 % (0-10); NRBC Flagged by Analyzer 0 % (0-5); Neutrophil # 4.49 X10^3/uL (2.7-7.7); Neutrophil % 51.3 % (47-70); Platelet Count 143 K/mm3 (150-450); RBC Distribution Width CV 12.2 % (11.6-14.6); RBC Distribution Width SD 39.9 fl (35.1-43.9); Red Blood Count 4.41 M/mm3 (4.2-5.4); White Blood Count 8.8 K/mm3 (4.4-11.0)
--- NOTE | 2021-11-09 03:00 | RAD_ITS ---
STUDY: X-RAY - CERVICAL SPINE REASON FOR EXAM: Female, 36 years old. pain, RUE radiculopathy sx TECHNIQUE: 3 view(s) of the cervical spine were obtained. COMPARISON: None FINDINGS: There are mild degenerative changes of the anterior atlantoaxial articulation. Normal odontoid process. There is straightening of the normal cervical lordosis. There is mild spondylosis at C5-C6. Otherwise normal disc space heights. The soft tissue structures are unremarkable. There is no demonstrated fracture of the cervical spine. RAD/Cerv Spine 2 or 3 Views IMPRESSION: Mild spondylosis as described, otherwise no acute fracture or subluxation. Straightening of the cervical lordosis which may be associated with spondylosis, muscular spasm or positioning. Electronically Signed: Saba Broussard MD at 3:30 EDT ,
[2021-11-09 03:16] VITALS: BP 134/90; PULSE 57; RESP 18; O2SAT 99
[2021-11-09 03:17] LABS: Anion Gap 9 (5-15); BUN 16 mg/dL (7-18); BUN/Creat Ratio 16.5 RATIO (10-20); Calcium,Total 8.9 mg/dL (8.5-10.1); Chloride 108 mmol/L (98-107); Creatinine, Serum 0.97 mg/dL (0.55-1.02); EST Glomerular Filtration Rate 69 mL/min (>60); Est Glom Filt Rate - Afr Amer 83 mL/min (>60); Glucose 140 mg/dL (74-106); Potassium 3.5 mmol/L (3.5-5.1); Sodium Level 139 mmol/L (136-145); Troponin-I HS (w/2H Reflex) < 3 pg/mL (3.0-54.0)
[2021-11-09 03:57] VITALS: BP 123/63; PULSE 82; RESP 18; O2SAT 96
[2021-11-09] MEDS: predniSONE 20 MG Tablet 40 MG PO (04:02)
[2021-11-09 04:56] LABS: Reflex Troponin-HS? (from REC) Y
== END 2021-11-09 04:10 | disposition home or self-care (01) ==
PROVIDERS: Emergency Provider Emergency Medicine; PCP Family Medicine; Visit Provider Emergency Medicine
DX: M47.22 Other spondylosis with radiculopathy, cervical region (principal); F41.9 Anxiety disorder, unspecified; R11.0 Nausea; F17.210 Nicotine dependence, cigarettes, uncomplicated; R07.89 Other chest pain
CPT/HCPCS: 71046; 72040; 80048; 84484; 85025; 93005; 96361; 96374; 96375; 99284; J7030; J2405

== ENCOUNTER 2021-11-30 20:46 | Emergency (ER) | payer MEDICAID, SELFPAY ==
[2021-11-30 20:47] VITALS: BP 117/82; PULSE 89; RESP 22; TEMP 36.6; O2SAT 98; BMI 32.1
--- NOTE | 2021-11-30 21:14 | ED.VIS.CHEST ---
HPI History of Present Illness Chief Complaint: Chest Pain Informant: patient Onset/Context/Timing Onset: Today Activity at onset: gradual, activity on onset and rest Timing: Continuous Quality: Positive for Tightness Location: Substernal Current Severity: Moderate Maximum Severity: Moderate Worsened By: Nothing; Not Worsened By Breathing Relieved By: Nothing Associated Symptoms: Positive for Nausea, Dyspnea and Lightheadedness; Negative for Vomiting, Cough and Palpitations Narrative Narrative: 45 minutes, chest discomfort nonpleuritic, tingling in the right arm and it just does not feel right, followed by lightheadedness and near syncope, nausea. She still feels poorly. It is making her very anxious, because she is concerned that something may be wrong. No history of cardiac problems in the past but her mom of vascular issues. [facility] Medical History Anxiety Back pain Bipolar 2 disorder Migraine Panic attack Home Medications albuterol sulfate [Ventolin HFA] 2 puff INHALATION Q4H PRN PRN #8.5 g 11/30/21 [Rx Last Taken Unknown] gabapentin 300 mg PO DAILY 11/30/21 [History Last Taken Unknown] venlafaxine 75 mg PO DAILY 11/30/21 [History Last Taken Unknown] Allergy/AdvReac Type Severity Reaction Status Date / Time Sulfa (Sulfonamide Allergy Rash Verified 11/30/21 20:49 Antibiotics) Social History Smoking Status: Current every day smoker tobacco type: cigarettes ROS ROS ED Constitutional Constitutional ED: Denies chills or fever(s) Eyes Eyes: Denies change in vision or diplopia ENT ENT ED: Denies rhinorrhea or sore throat Cardiovascular Cardiovascular: Reports chest pain; Denies palpitations Respiratory/Chest Respiratory/Chest: Reports chest tightness and dyspnea; Denies cough Gastrointestinal Gastrointestinal: Denies abdominal pain, diarrhea, nausea or vomiting Genitourinary Genitourinary ED: Denies dysuria or hematuria Musculoskeletal Musculoskeletal: Reports extremity pain and other Details: Right upper extremity discomfort. No leg pain or swelling. ; Denies back pain or neck pain Integumentary Denies abscess or rash Neurologic Neurologic: Denies headache(s), paresthesias or weakness Psychiatric Psychiatric: Reports anxiety; Denies suicidal thoughts EXAM Physical Exam Const Vital Signs: 11/30/21 20:47 11/30/21 21:01 11/30/21 21:05 Temperature 97.8 F Temperature Source Temporal Pulse Rate 89 Respiratory Rate 22 H Respiratory Effort Normal Non-Labored Blood Pressure 117/82 H Blood Pressure Mean 93 Pulse Ox 98 Oxygen Delivery Method Room Air Room Air 11/30/21 21:16 11/30/21 21:47 11/30/21 23:00 Temperature Temperature Source Pulse Rate 81 70 Respiratory Rate 15 15 Respiratory Effort Blood Pressure 105/58 L 97/52 L Blood Pressure Mean 73 67 Pulse Ox 98 97 Oxygen Delivery Method Room Air Room Air Room Air Positive well nourished and well developed General Appearance ED: well developed and NAD HEENT Reports moist mucous membranes normocephalic and atraumatic Eyes PERRL and EOMs intact bilaterally Neck full ROM and supple Resp normal respiratory effort and clear to auscultation bilaterally Cardio regular rate, regular rhythm and no murmurs GI non-tender and non-distended Auscultation: normoactive bowel sounds Palpation: soft Back/Spine no CVA tenderness General Back: other FROM Extremity normal to inspection General Extremety ED: Negative for edema, pulses abnormal or tenderness General Extremity: Negative for edema or pulses abnormal Neuro oriented x3, CN's II-XII intact bilaterally and no sensory deficits noted Sensorium / Orientation: awake and alert Motor Exam: strength 5/5 throughout Psych thought process normal and cooperative Mood & Affect: anxious Skin no rashes or lesions noted and no wounds Heart Score History: Moderately Suspicious ECG: Normal Age: </= 45 years Risk Factors: 1 or 2 Risk Factors Troponin: </= Normal Limit Score: 2 MDM MDM MDM Narrative Medical decision making narrative: Patient has a heart score of 2, normal EKG, negative troponin. We did a delta, it is negative as well pink. This makes the patient very low risk for cardiac event here. Given that she was burping a lot and having lots of nausea I gave her a GI cocktail in addition to Zofran and later Reglan, she states it was hard to tell she thought she was improving but she still has chest tightness. She does not want an albuterol aerosol which I offered because it will really make her heart race and make her anxious and she does not want that. She is considering the possibility of anxiety causing this discomfort which I said certainly is possible but a diagnosis of exclusion. She is okay with going home, she would prefer to have an albuterol inhaler so I will prescribe her one, and give her a dose of Vistaril prior to discharge which we discussed and she is comfortable with that plan. Of note, her PERC score is 0, and her symptoms are really not those of a PE, so we did not undertake further work-up for that because it was not indicated. Lab Data Attestation: I reviewed the patient's lab results. Labs: Laboratory Results - last 24 hr 11/30/21 11/30/21 11/30/21 21:05 21:05 23:05 WBC 9.6 RBC 5.07 Hgb 15.5 H Hct 44.8 MCV 88.4 MCH 30.6 MCHC 34.6 RDW Std Deviation 40.3 RDW Coeff of Jarod 12.4 Plt Count 188 MPV 11.1 Immature Gran % (Auto) 0.300 Neut % (Auto) 58.3 Lymph % (Auto) 34.5 [place] % (Auto) 4.2 Eos % (Auto) 2.2 Baso % (Auto) 0.5 Absolute Neuts (auto) 5.6 Absolute Lymphs (auto) 3.30 Nucleated RBC % 0 Sodium 139 Potassium 3.8 Chloride 107 Carbon Dioxide 25.0 Anion Gap 7 BUN 14 Creatinine 0.90 Estim Creat Clear Calc 65.21 Est GFR (MDRD) Af Amer 90 Est GFR (MDRD) Non-Af 75 BUN/Creatinine Ratio 15.5 Glucose 117 H Calcium 9.4 Troponin I High Sens < 3 L < 3 L Radiography Chest X-Ray - ED: 1 View, Read by ED Physician, No Acute Disease and No Infiltrates Diagnostic Testing: Clinical Impression(s) from Imaging Studies Chest X-Ray 11/30/21 21:27 IMPRESSION: Normal x-ray examination of the chest. Electronically Signed: Poonam Murray MD at 22:36 EDT Reading Location ID and State: [id number] / Tel , Service support , Rhythm Strip Rhythm Strip: Sinus Rhythm Rate: 80 Ectopy: None EKG Initial EKG: Attestation: I personally reviewed and interpreted this EKG as follows: Interpretation: Sinus Rhythm and No Acute Injury Pattern Comments: Normal EKG Discharge Plan Triage Chief Complaint: Chest Pain ED Provider: Miguel Patel Dx/Rx/DC Orders Clinical Impression: Chest tightness, Anxiety, Paresthesias Instructions: Anxiety Disorders Tx Therapy, ED Chest Pain, Noncardiac Prescriptions: Continued gabapentin 300 mg capsule 300 mg PO DAILY RF: 0 venlafaxine 75 mg capsule,extended release 24hr 75 mg PO DAILY RF: 0 albuterol sulfate [Ventolin HFA] 90 mcg/actuation HFA aerosol inhaler 2 puff INHALATION Q4H PRN PRN (Reason: sob) Qty: 8.5 RF: 0 Primary Care Provider: Yohannes Downey Referrals: Yohannes Downey MD [Primary Care Provider] - 3-5 Days if not improving Disposition Disposition: Home, Self Care
--- NOTE | 2021-11-30 21:15 | EKG12_ITS ---
Test Reason : CP Blood Pressure : / mmHG Vent. Rate : 083 BPM Atrial Rate : 083 BPM P-R Int : 148 ms QRS Dur : 084 ms QT Int : 372 ms P-R-T Axes : 037 047 030 degrees QTc Int : 437 ms Normal sinus rhythm with sinus arrhythmia Normal ECG Confirmed by LOGAN CORCORAN, JUANITA ([id number]), video news editor ALYSSA OMER ([id number]) on 12/02/2021 9:58:54 AM Referred By: SARAH Confirmed By:JUANITA FORD MD
[2021-11-30] MEDS: 0.9% Normal Saline 1,000 ML 1000 ML IV (21:18)
[2021-11-30] MEDS: Ondansetron 4 MG/2 ML Vial IV (21:20)
[2021-11-30 21:25] LABS: Absolute Neutrophil Count 5.6 X10^3/uL (2.0-7.7); Basophil# 0.05 X10^3/uL; Basophil% 0.5 % (0-1); Eosinophil# 0.21 X10^3/uL; Eosinophils% 2.2 % (0-5); Hematocrit 44.8 % (37-47); Hemoglobin 15.5 g/dL (12.0-15.0); Lymphocyte % 34.5 % (19-41); Mean Corp Hgb Conc 34.6 g/dL (32-36); Mean Corpuscular Hgb 30.6 pg (27.0-32.0); Mean Corpuscular Volume 88.4 fL (81-99); Mean Platelet Vol. 11.1 fl (6.2-12.0); Monocyte% 4.2 % (0-10); NRBC Flagged by Analyzer 0 % (0-5); Neutrophil # 5.57 X10^3/uL (2.7-7.7); Neutrophil % 58.3 % (47-70); Platelet Count 188 K/mm3 (150-450); RBC Distribution Width CV 12.4 % (11.6-14.6); RBC Distribution Width SD 40.3 fl (35.1-43.9); Red Blood Count 5.07 M/mm3 (4.2-5.4); White Blood Count 9.6 K/mm3 (4.4-11.0)
--- NOTE | 2021-11-30 21:27 | RAD_ITS ---
STUDY: X-RAY CHEST REASON FOR EXAM: Female, 36 years old. chest pain TECHNIQUE: Single AP portable view of the chest. COMPARISON: 11/09/2021. FINDINGS: The lungs are clear and expanded. There is no demonstrated pleural abnormality. Normal size heart. Normal mediastinum and amauri. Normal visualized pulmonary arteries. Normal visualized aortic arch and descending thoracic aorta. Normal visualized thoracic spine. Normal visualized ribs, clavicles, and shoulders. There is no demonstrated abnormality of the visualized soft tissue structures of the upper abdomen. RAD/Chest 1 View (Portable) IMPRESSION: Normal x-ray examination of the chest. Electronically Signed: Poonam Murray MD at 22:36 EDT Reading Location ID and State: [id number] / Tel , Service support ,
[2021-11-30] MEDS: Mag Hydrox/Al Hydrox/Simeth 30 ML UDC PO (21:29)
[2021-11-30 21:47] VITALS: BP 105/58; PULSE 81; RESP 15; O2SAT 98
[2021-11-30 21:55] LABS: Anion Gap 7 (5-15); BUN 14 mg/dL (7-18); BUN/Creat Ratio 15.5 RATIO (10-20); Calcium,Total 9.4 mg/dL (8.5-10.1); Chloride 107 mmol/L (98-107); EST Glomerular Filtration Rate 75 mL/min (>60); Est Glom Filt Rate - Afr Amer 90 mL/min (>60); Estimated Creatinine Clearance 65.21 ml/min; Glucose 117 mg/dL (74-106); Potassium 3.8 mmol/L (3.5-5.1); Sodium Level 139 mmol/L (136-145); Troponin-I HS < 3 pg/mL (3.0-54.0)
[2021-11-30 23:00] VITALS: BP 97/52; PULSE 70; RESP 15; O2SAT 97
[2021-11-30] MEDS: Metoclopramide 10 MG/2 ML Vial 5 MG IV (23:06)
[2021-11-30 23:33] LABS: Troponin-I HS < 3 pg/mL (3.0-54.0)
[2021-11-30 23:49] VITALS: BP 93/44; PULSE 68; RESP 15; O2SAT 97
[2021-12-01] MEDS: hydrOXYzine PAM 25 MG Capsule 50 MG PO (00:05)
== END 2021-12-01 00:07 | disposition home or self-care (01) ==
PROVIDERS: Emergency Provider Emergency Medicine; PCP Family Medicine; Visit Provider Emergency Medicine
DX: R07.89 Other chest pain (principal); F31.9 Bipolar disorder, unspecified; R20.2 Paresthesia of skin; F17.210 Nicotine dependence, cigarettes, uncomplicated; R11.0 Nausea; F41.9 Anxiety disorder, unspecified
CPT/HCPCS: 71045; 80048; 84484; 85025; 93005; 99285; J7030; J7040; A4216; J2405

== ENCOUNTER 2021-12-11 23:10 | Emergency (ER) | payer MEDICAID, SELFPAY ==
--- NOTE | 2021-12-11 00:15 | RAD_ITS ---
STUDY: X-RAY CHEST REASON FOR EXAM: Female, 36 years old. chest pain TECHNIQUE: Single AP portable view of the chest. COMPARISON: Previous chest radiographs of 11/30/2021 and 11/09/2021. FINDINGS: Patient is rotated to the left. Right lung is clear. On the left, increased density is projected over the cardiac apex with opacification of the lateral left lung base and silhouetting of the lateral left hemidiaphragm, consistent with infiltrate, probably pneumonia. As the left lateral costophrenic angle is obscured, there may be a minimal left pleural effusion. Normal size heart. Normal mediastinum and amauri. Normal visualized pulmonary arteries. Normal visualized aortic arch and descending thoracic aorta. Normal visualized thoracic spine. Normal visualized ribs, clavicles, and shoulders. There is no demonstrated abnormality of the visualized soft tissue structures of the upper abdomen. RAD/Chest 1 View (Portable) IMPRESSION: Consolidation within the left lung base laterally, consistent with bibasilar pneumonia. Electronically Signed: Polo Aponte MD at 0:58 EDT ,
[2021-12-11 23:11] VITALS: BP 148/92; PULSE 76; RESP 14; TEMP 36.7; O2SAT 99; BMI 32.3
--- NOTE | 2021-12-11 23:36 | ED.VIS.CHEST ---
HPI History of Present Illness Chief Complaint: Chest Pain Narrative Narrative: This is a 36-year-old female with a history of neck pain. She states has been bothering her for months now. She states that she was laying down in bed and has been laying down a lot more recently due to the pain. She states that when she woke up she felt the pain radiating into her right upper chest wall and down her right arm into her hand. She states that over time it sometimes painful and sometimes he has numbness and tingling. She is not had any imaging of her cervical spine. She does state that she has recently had an MRI a couple of months ago for her lumbar spine where she has bulging disks there. She states she recently quit smoking and does not have any cardiac risk factors otherwise. She has not had fever, chills, cough, shortness of breath. She does state that she has been having some dizziness recently. She describes it as vertiginous. She states sometimes she has to crawl to the bathroom. She denies any head injury. She states she takes Phenergan when she gets nauseous from the dizziness but this does not help. No history of vertigo. [facility] Medical History Anxiety Back pain Bipolar 2 disorder Bulging disc Migraine Panic attack Home Medications albuterol sulfate 90 mcg/actuation aerosol inhaler (Ventolin HFA) 2 puff inhalation Q4H PRN PRN sob #8.5 grams 11/30/21 [Rx Last Taken Unknown] gabapentin 300 mg capsule 300 mg PO DAILY 11/30/21 [History Last Taken Unknown] venlafaxine 75 mg capsule,extended release 24 hr 75 mg PO DAILY 11/30/21 [History Last Taken Unknown] diazepam 2 mg tablet (Valium) 2 mg PO QHS PRN muscle spasm #10 tabs 12/12/21 [Rx Last Taken Unknown] meclizine 25 mg tablet 25 mg PO DAILY PRN dizziness #30 tabs 12/12/21 [Rx Last Taken Unknown] Allergy/AdvReac Type Severity Reaction Status Date / Time Sulfa (Sulfonamide Allergy Rash Verified 11/30/21 20:49 Antibiotics) Social History Smoking Status: Current every day smoker tobacco type: cigarettes ROS ROS ED Constitutional Constitutional ED: Denies chills or fever(s) Eyes Eyes: Denies blurry vision or change in vision ENT ENT ED: Denies rhinorrhea or sore throat Cardiovascular Cardiovascular: Reports chest pain Respiratory/Chest Respiratory/Chest: Denies cough or dyspnea Gastrointestinal Gastrointestinal: Denies abdominal pain or constipation Genitourinary Genitourinary ED: Denies dysuria or hematuria Musculoskeletal Musculoskeletal: Reports neck pain Neurologic Neurologic: Reports paresthesias RUE Psychiatric Psychiatric: Reports anxiety; Denies depression Endocrine Endocrinology: Denies cold intolerance or heat intolerance EXAM Physical Exam Const Vital Signs: 12/11/21 23:11 12/11/21 23:47 12/12/21 00:27 Temperature 98.1 F Temperature Source Oral Pulse Rate 76 72 Respiratory Rate 14 14 Blood Pressure 148/92 H 109/96 H Blood Pressure Mean 110 100 Pulse Ox 99 97 Oxygen Delivery Method Room Air Room Air Room Air 12/12/21 01:13 Temperature Temperature Source Pulse Rate 70 Respiratory Rate 16 Blood Pressure 106/68 Blood Pressure Mean 80 Pulse Ox 97 Oxygen Delivery Method Room Air Positive well nourished General Appearance ED: NAD; Negative for pallor HEENT Reports moist mucous membranes HEENT Narrative: Reproducible vertiginous dizziness with Clary-Hallpike exam. Nystagmus noted. normocephalic and atraumatic Neck no lymphadenopathy Chest Wall inspection of chest normal and palpation of chest normal Resp normal respiratory effort and clear to auscultation bilaterally Cardio regular rate and regular rhythm GI normal to inspection, nondistended, normoactive bowel sounds Back/Spine Back/Spine Narrative: Tenderness noted to the right trapezius and right shoulder. There is no pain in the right upper extremity. Patient does report the sensation of paresthesias and radiation of pain into her right upper extremity. She has no limitation in her range of motion. Cervical spine is nontender midline. No deformities or step-offs. Strength is 5/5 in the right upper extremity. Extremity General Extremety ED: Negative for edema General Extremity: Negative for edema Neuro oriented x3 and CN's II-XII intact bilaterally Sensorium / Orientation: awake and alert Motor Exam: strength 5/5 throughout Psych Mood & Affect: anxious Skin General Skin Exam: Negative for jaundice or pallor MDM MDM MDM Narrative Medical decision making narrative: Patient presenting with concern for chest pain although her pains seems to be emanating from her neck into her right shoulder and arm and to some degree into her right chest wall. She has been complaining of neck pain for months now. I think she has a cervical radiculopathy. I did obtain x-ray of the cervical spine which does show degenerative changes on my interpretation. The radiologist does state there is reversal of the normal lordosis. The patient also has a reproducible vertiginous dizziness which I believe is vertigo on exam she has nystagmus with it. Given her pain and vertigo and reported increasing anxiety I gave her 2 mg of Valium and this seems to improved all of her symptoms. From a cardiac standpoint her EKG is sinus rhythm with a ventricular rate of 78 bpm without sign of ischemic change. Her chest x-ray was interpreted by radiology does have bibasilar pneumonia however her lungs are clear and she does not have any respiratory complaints at all. She is not had a fever, cough, shortness of breath. He does not have a white blood cell count elevation. Her pulse ox is 97 to 99% on room air respiratory rate 14-16. When I when I interpreted the chest x-ray from myself I can see partially with the radiologist talking about but I do not believe this is pneumonia. Being that her CBC and BMP are unremarkable and her high-sensitivity opponent is less than 3 I do not believe this is cardiac but I will obtain a delta troponin since the pain started right after she woke up. She seems to be doing much better after receiving Valium. For second troponin is normal I will discharge her home with meclizine and Valium to use at night. She has a spinal specialist she is seeing for her lumbar spine and she can see in follow-up for her cervical spine. Patient is comfortable with this plan. Impression: 1. Chest pain noncardiac 2. Benign positional vertigo 3. Cervical radiculopathy Lab Data Labs: Laboratory Results - last 24 hr 12/11/21 12/11/21 12/12/21 23:45 23:45 01:58 WBC 10.1 RBC 5.07 Hgb 15.3 H Hct 44.1 MCV 87.0 MCH 30.2 MCHC 34.7 RDW Std Deviation 39.2 RDW Coeff of Jarod 12.3 Plt Count 180 MPV 11.0 Immature Gran % (Auto) 0.900 Neut % (Auto) 56.6 Lymph % (Auto) 34.3 [place] % (Auto) 4.9 Eos % (Auto) 2.7 Baso % (Auto) 0.6 Absolute Neuts (auto) 5.7 Absolute Lymphs (auto) 3.46 Nucleated RBC % 0 Sodium 138 Potassium 4.0 Chloride 105 Carbon Dioxide 25.0 Anion Gap 8 BUN 13 Creatinine 0.91 Estim Creat Clear Calc 64.49 Est GFR (MDRD) Af Amer 90 Est GFR (MDRD) Non-Af 74 BUN/Creatinine Ratio 14.3 Glucose 114 H Calcium 9.5 Troponin I High Sens < 3 L < 3 L Radiography Diagnostic Testing: Clinical Impression(s) from Imaging Studies Chest X-Ray 12/11/21 00:15 IMPRESSION: Consolidation within the left lung base laterally, consistent with bibasilar pneumonia. Electronically Signed: Polo Aponte MD at 0:58 EDT , Cervical Spine X-Ray 12/12/21 01:00 IMPRESSION: Slight reversal of the cervical lordosis due to positioning or muscle spasm. Mild degenerative disc disease at C5/6. No acute fracture or subluxation. Electronically Signed: Polo Aponte MD at 1:56 EDT , Discharge Plan Triage Chief Complaint: Chest Pain ED Provider: Jeremy Ramirez Dx/Rx/DC Orders Instructions: ED Chest Pain, Noncardiac, ED BPV Vertigo, ED Radiculopathy, Cervical Prescriptions: New meclizine 25 mg tablet 25 mg PO DAILY PRN (Reason: dizziness) Qty: 30 0RF diazepam [Valium] 2 mg tablet 2 mg PO QHS PRN (Reason: muscle spasm) Qty: 10 0RF No Action gabapentin 300 mg capsule 300 mg PO DAILY venlafaxine 75 mg capsule,extended release 24hr 75 mg PO DAILY Label Comments: TAKE 1 CAPSULE BY MOUTH DAILY WITH FOOD albuterol sulfate [Ventolin HFA] 90 mcg/actuation HFA aerosol inhaler 2 puff INHALATION Q4H PRN PRN (Reason: sob) Qty: 8.5 0RF Primary Care Provider: Yohannes Downey Referrals: Yohannes Downey MD [Primary Care Provider] - Disposition Disposition: Home, Self Care
--- NOTE | 2021-12-11 23:38 | EKG12_ITS ---
Test Reason : CP Blood Pressure : / mmHG Vent. Rate : 078 BPM Atrial Rate : 078 BPM P-R Int : 148 ms QRS Dur : 094 ms QT Int : 408 ms P-R-T Axes : 037 042 050 degrees QTc Int : 465 ms Normal sinus rhythm with sinus arrhythmia Normal ECG Confirmed by LOGAN CORCORAN, JUANITA ([id number]), society editor ALYSSA OMER ([id number]) on 12/15/2021 8:11:26 AM Referred By: ALFREDO Confirmed By:JUANITA FORD MD
[2021-12-11] MEDS: diazePAM 2 MG Tablet PO (23:46)
[2021-12-12 00:09] LABS: Absolute Lymphocyte Count 3.46 X10^3/uL (0.83-4.51); Absolute Neutrophil Count 5.7 X10^3/uL (2.0-7.7); Basophil# 0.06 X10^3/uL; Basophil% 0.6 % (0-1); Eosinophil# 0.27 X10^3/uL; Eosinophils% 2.7 % (0-5); Hematocrit 44.1 % (37-47); Hemoglobin 15.3 g/dL (12.0-15.0); Lymphocyte # 3.46 X10^3/ul (0.83-4.51); Lymphocyte % 34.3 % (19-41); Mean Corp Hgb Conc 34.7 g/dL (32-36); Mean Corpuscular Hgb 30.2 pg (27.0-32.0); Monocyte# 0.49 X10^3/uL; Monocyte% 4.9 % (0-10); NRBC Flagged by Analyzer 0 % (0-5); Neutrophil # 5.73 X10^3/uL (2.7-7.7); Neutrophil % 56.6 % (47-70); Platelet Count 180 K/mm3 (150-450); RBC Distribution Width CV 12.3 % (11.6-14.6); RBC Distribution Width SD 39.2 fl (35.1-43.9); Red Blood Count 5.07 M/mm3 (4.2-5.4); White Blood Count 10.1 K/mm3 (4.4-11.0)
[2021-12-12 00:13] LABS: Anion Gap 8 (5-15); BUN 13 mg/dL (7-18); BUN/Creat Ratio 14.3 RATIO (10-20); Calcium,Total 9.5 mg/dL (8.5-10.1); Chloride 105 mmol/L (98-107); Creatinine, Serum 0.91 mg/dL (0.55-1.02); EST Glomerular Filtration Rate 74 mL/min (>60); Est Glom Filt Rate - Afr Amer 90 mL/min (>60); Estimated Creatinine Clearance 64.49 ml/min; Glucose 114 mg/dL (74-106); Sodium Level 138 mmol/L (136-145); Troponin-I HS (w/2H Reflex) < 3 pg/mL (3.0-54.0)
[2021-12-12 00:27] VITALS: BP 109/96; PULSE 72; RESP 14; O2SAT 97
--- NOTE | 2021-12-12 01:00 | RAD_ITS ---
STUDY: X-RAY - CERVICAL SPINE REASON FOR EXAM: Female, 36 years old. neck pain -- pt unable to remove lip ring TECHNIQUE: 5 view(s) of the cervical spine were obtained. COMPARISON: None FINDINGS: Normal anterior atlantoaxial articulation. Normal odontoid process. Mild reversal of the normal cervical lordosis due to positioning or muscle spasm. Minimal degenerative narrowing of the C5/6 disc space with small marginal osteophytes and mild uncinate hypertrophy. The uncinate hypertrophy at C5/6 causes minimal bilateral neural foraminal encroachment. Remaining cervical disc spaces are preserved. No compression fracture or subluxation is noted. No facet dislocation is identified. The visualized posterior elements are intact. The soft tissue structures are unremarkable. No precervical soft tissue swelling. The visualized lung apices are clear. Visualized upper ribs are intact. There is old fracture of the distal right clavicle. RAD/Cerv Spine 4 or 5 Views IMPRESSION: Slight reversal of the cervical lordosis due to positioning or muscle spasm. Mild degenerative disc disease at C5/6. No acute fracture or subluxation. Electronically Signed: Polo Aponte MD at 1:56 EDT ,
[2021-12-12 01:13] VITALS: BP 106/68; PULSE 70; RESP 16; O2SAT 97
[2021-12-12 01:51] LABS: Reflex Troponin-HS? (from REC) Y
[2021-12-12 02:32] LABS: Troponin-I HS < 3 pg/mL (3.0-54.0)
[2021-12-12 03:07] VITALS: BP 113/80; PULSE 74; RESP 17; O2SAT 97
[2021-12-12 03:08] VITALS: PULSE 74
== END 2021-12-12 03:08 | disposition home or self-care (01) ==
PROVIDERS: Emergency Provider Student in an Organized Health Care Education/Training Program; PCP Family Medicine; Visit Provider Student in an Organized Health Care Education/Training Program
DX: R07.89 Other chest pain (principal); F31.9 Bipolar disorder, unspecified; M50.122 Cervical disc disorder at C5-C6 level with radiculopathy; M25.511 Pain in right shoulder; R42 Dizziness and giddiness; Z87.891 Personal history of nicotine dependence; H81.10 Benign paroxysmal vertigo, unspecified ear
CPT/HCPCS: 71045; 72050; 80048; 84484; 85025; 93005; 99284; A4216

== ENCOUNTER 2022-02-01 03:59 | Emergency (ER) | payer MEDICAID, SELFPAY ==
[2022-02-01 04:00] VITALS: BP 123/73; PULSE 78; RESP 16; TEMP 36.5; O2SAT 97; BMI 32.7
--- NOTE | 2022-02-01 04:23 | CT_ITS ---
EXAM: CT ABDOMEN AND PELVIS WITHOUT INTRAVENOUS CONTRAST CLINICAL INDICATION: pain TECHNIQUE: Helically acquired images were obtained of the abdomen and pelvis without intravenous contrast. This CT exam was performed using one or more of the following dose reduction techniques: automated exposure control, adjustment of the mA and/or kV according to patient size, and/or use of iterative reconstruction technique. This report was created using [employer] report generation technology. RADIATION DOSE: Total DLP: 463.98 mGy-cm. COMPARISON: None. FINDINGS: LOWER THORAX: No coronary artery calcifications visualized. Lung bases are clear. No cardiomegaly. No significant pericardial effusion. ABDOMEN: LIVER: Severe fatty infiltration of the liver with focal fatty sparing near the gallbladder. Right hepatic lobe is elongated measuring 25 cm in cephalocaudal dimension. GALLBLADDER AND BILE DUCTS: The gallbladder is normal in size. There is slight inhomogeneity within the gallbladder lumen which could be due to sludge or noncalcified stones. No wall thickening, pericholecystic stranding or biliary ductal dilatation identified. PANCREAS: Unremarkable. No focal cystic mass. SPLEEN: Spleen is enlarged measuring 15 cm in cephalocaudal dimension. ADRENALS: Unremarkable. No nodules. KIDNEYS AND URETERS: Kidneys are normal in size. A punctate nonobstructing stone is seen within the right renal upper pole collecting system. Punctate nonobstructing stones noted within the left upper and left lower pole collecting systems, best seen on the coronal images. No hydronephrosis or obstructing ureteral stone. No perirenal stranding. STOMACH AND BOWEL: Unremarkable. No stomach or bowel distention. No focal inflammatory change. PELVIS: APPENDIX: No evidence of acute appendicitis. BLADDER: Urinary bladder is empty. REPRODUCTIVE: Uterus is not visualized. No adnexal mass. ABDOMEN and PELVIS: INTRAPERITONEAL SPACE: Unremarkable. No ascites or other fluid collection. No free air. BONES/JOINTS: Degenerative disc space narrowing at L5/S1 with calcified broad-based central, left paracentral and foraminal disc protrusion causing moderate asymmetric narrowing of the left neural foramen; posterolateral osteophytes cause mild narrowing of the inferior right neural foramen at this level. No suspicious lytic or blastic abnormality. SOFT TISSUES: Unremarkable. No discrete abdominal or pelvic wall hernia. VASCULATURE: Unremarkable. Abdominal aorta is non-dilated. LYMPH NODES: Unremarkable. No enlarged lymph nodes. CT/Abdomen/Pelvis without Cont IMPRESSION: Normal appendix. Nonobstructing renal calculi. No obstructing ureteral stones or hydronephrosis. Enlarged fatty liver with associated splenomegaly. Sludge versus noncalcified stones in the gallbladder; correlation with ultrasound may be of benefit. No findings of cholecystitis or biliary ductal dilatation. Electronically Signed: Polo Aponte MD at 6:11 EDT ,
--- NOTE | 2022-02-01 04:23 | EX.ED.DYSGE1 ---
HPI <Dr. Elder Merchant MD - Last Filed: 02/01/22 07:26> History of Present Illness Chief Complaint: Abd Pain Informant: patient Narrative Narrative: Patient presents with nausea vomiting diarrhea and pain. She started about 20 to 22 hours ago with some diarrhea. Had some watery bowel movements. No blood or black. She felt a little bit nauseated all day yesterday but was able to eat. About 11 PM last night or 5-1/2 hours ago she started developed nausea vomiting and pain. Its mostly in the right upper and right mid quadrant and does radiate a little to the side. It does not go into her back. She has no urinary symptoms at all. No blood in the vomitus. She has had a prior hysterectomy about 8 years ago but no other abdominal surgery. No known family history of biliary disease. She cannot think of anything she ate that was abnormal or tasted bad. No one else she knows of is sick. She has had no fevers. No cough congestion runny nose. [facility] <Dr. Elder Merchant MD - Last Filed: 02/01/22 07:26> [facility] Medical History Anxiety Back pain Bipolar 2 disorder Bulging disc Migraine Panic attack Home Medications albuterol sulfate 90 mcg/actuation aerosol inhaler (Ventolin HFA) 2 puff inhalation Q4H PRN PRN sob #8.5 grams 11/30/21 [Rx Last Taken Unknown] gabapentin 300 mg capsule 300 mg PO DAILY 11/30/21 [History Last Taken Unknown] venlafaxine 75 mg capsule,extended release 24 hr 75 mg PO DAILY 11/30/21 [History Last Taken Unknown] diazepam 2 mg tablet (Valium) 2 mg PO QHS PRN muscle spasm #10 tabs 12/12/21 [Rx Last Taken Unknown] meclizine 25 mg tablet 25 mg PO DAILY PRN dizziness #30 tabs 12/12/21 [Rx Last Taken Unknown] dicyclomine 10 mg capsule 20 mg PO TIDAC #20 CAPSULES 02/01/22 [Rx Last Taken Unknown] metoclopramide HCl 10 mg tablet 10 mg PO 4X/DAY PRN Headache #20 tabs 02/01/22 [Rx Last Taken Unknown] Allergy/AdvReac Type Severity Reaction Status Date / Time Sulfa (Sulfonamide Allergy Rash Verified 02/01/22 04:03 Antibiotics) Social History Smoking Status: Former smoker ROS <Dr. Elder Merchant MD - Last Filed: 02/01/22 07:26> ROS ED Constitutional Constitutional ED: Denies chills, fever(s) or subjective ENT ENT ED: Denies rhinorrhea or sore throat Cardiovascular Cardiovascular: Denies chest pain, palpitations or racing heartbeat Respiratory/Chest Respiratory/Chest: Denies cough or dyspnea Gastrointestinal Gastrointestinal: Reports abdominal pain, diarrhea, nausea and vomiting; Denies constipation or melena Genitourinary Genitourinary ED: Denies dysuria, hematuria or urinary frequency Musculoskeletal Musculoskeletal: Denies arthralgias or myalgias Integumentary Denies rash Neurologic Neurologic: Denies headache(s) Psychiatric Psychiatric: Reports anxiety Endocrine Endocrinology: Denies polydipsia or polyuria Hematologic/Lymphatic Hematologic/Lymphatic: Denies anemia Allergic/Immunologic Allergic/Immunologic ED: Denies urticaria EXAM <Dr. Elder Merchant MD - Last Filed: 02/01/22 07:26> Physical Exam Const Vital Signs: 02/01/22 04:00 02/01/22 05:50 02/01/22 07:57 Temperature 97.7 F L Temperature Source Temporal Pulse Rate 78 72 55 L Respiratory Rate 16 16 18 Blood Pressure 123/73 H 106/67 104/62 Blood Pressure Mean 89 80 76 Pulse Ox 97 98 96 Oxygen Delivery Method Room Air Room Air Room Air Positive well nourished and well developed General Appearance ED: well developed HEENT Reports moist mucous membranes Eyes General Eye ED: Negative for scleral icterus Neck supple Resp normal respiratory effort and clear to auscultation bilaterally Auscultation: Negative for rales, rhonchi or wheezes Cardio regular rate and regular rhythm GI normal to inspection, nondistended, normoactive bowel sounds GI Narrative: Bowel sounds are normal. Abdomen is not distended. She does have tenderness in the epigastric area, right upper quadrant in a little bit toward the right mid quadrant. Not really anywhere else. No notable right lower quadrant tenderness. She states it hurts a little bit everywhere but mostly in the right upper area. There is no rebound or guarding. Equivocal Simmons sign. Back/Spine no CVA tenderness Extremity normal to inspection Neuro Sensorium / Orientation: alert Psych mental status grossly normal Skin no rashes or lesions noted Skin Narrative: No vesicles noted. <Dr. Jose Carranza MD - Last Filed: 02/01/22 09:23> Physical Exam Const Vital Signs: 02/01/22 04:00 02/01/22 05:50 02/01/22 07:57 Temperature 97.7 F L Temperature Source Temporal Pulse Rate 78 72 55 L Respiratory Rate 16 16 18 Blood Pressure 123/73 H 106/67 104/62 Blood Pressure Mean 89 80 76 Pulse Ox 97 98 96 Oxygen Delivery Method Room Air Room Air Room Air [facility] <Dr. Elder Merchant MD - Last Filed: 02/01/22 07:26> [facility] Narrative Medical decision making narrative: 06:15 Patient's recheck. She did get more nauseated so we did give her some Benadryl and Zofran. She is actually drinking a cup of liquids right now. She states the pain is better. She is not is tender in the abdomen as she seemed to be before. This is improved. Her white count is normal. Hemoglobin platelets are normal. Electrolytes show no marked abnormalities. Glucose is minimally elevated 131. Liver function tests are normal other than an ALT slightly up at 59. Urine showed no signs of infection. CAT scan showed possible sludge versus noncalcified stone in the gallbladder. But there was no change in size, wall thickening, or pericholecystic fluid or stranding. No sign of biliary ductal dilation. I will give the patient some pantoprazole because she states she taste and add a acid taste in her mouth quite a bit. We will see if we can get her meds and get her home feeling better. Even though her pain is much less, I will give her some Toradol to see if this brings it down completely. Patient's symptoms are more consistent with a mild gastroenteritis with diarrhea nausea and vomiting. But she does have some pain that seems to be more toward the right upper quadrant. But there is no sign of inflammatory changes. Her white count and liver function test are normal. As long as we get her better I think she can follow-up as an outpatient. She may need further studies such as ultrasound or HIDA scan. This certainly could be an episode of biliary colic. 06:30 Patient has vomited again. This is after second dose of Zofran. I will try some pantoprazole because she is having rotten eggs belching. We will try Phenergan to see if that helps her nausea better. Because she still having symptoms and does show signs of either sludge or gallstones I will get an ultrasound to better evaluate the gallbladder. If the ultrasound shows no acute issues that are surgical and we can get the patient better I still think she can go home. The studies are pending at this time. Lab Data Labs: Laboratory Results - last 24 hr 02/01/22 02/01/22 02/01/22 04:36 04:36 04:54 WBC 10.0 RBC 4.93 Hgb 14.7 Hct 43.9 MCV 89.0 MCH 29.8 MCHC 33.5 RDW Std Deviation 39.2 RDW Coeff of Jarod 12.1 Plt Count 180 MPV 10.8 Immature Gran % (Auto) 0.300 Neut % (Auto) 75.7 H Lymph % (Auto) 17.1 L [place] % (Auto) 4.0 Eos % (Auto) 2.3 Baso % (Auto) 0.6 Absolute Neuts (auto) 7.5 Absolute Lymphs (auto) 1.70 Nucleated RBC % 0 Sodium 138 Potassium 4.2 Chloride 105 Carbon Dioxide 27.0 Anion Gap 6 BUN 9 Creatinine 0.96 Estim Creat Clear Calc 60.55 Est GFR (MDRD) Af Amer 84 Est GFR (MDRD) Non-Af 69 BUN/Creatinine Ratio 9.3 L Glucose 131 H Calcium 9.2 Total Bilirubin 0.40 AST 24 ALT 59 H Alkaline Phosphatase 65 Total Protein 7.8 Albumin 3.6 Globulin 4.2 Albumin/Globulin Ratio 0.9 Lipase 59 L Urine Color Yellow Urine Clarity Clear Urine pH 6.0 Ur Specific [place] 1.025 Urine Protein 15 H Urine Glucose (UA) Normal Urine Ketones 5 H Urine Occult Blood Negative Urine Nitrite Negative Urine Bilirubin 1 H Urine Urobilinogen 1 H Ur Leukocyte Esterase Negative Urine RBC 0 SEEN Urine WBC 0-5 SEEN Ur Squamous Epith Cells 5-10 SEEN Urine Bacteria 3+ Urine Mucus 4+ Radiography Diagnostic Testing: Clinical Impression(s) from Imaging Studies Abdomen/Pelvis CT 02/01/22 04:23 IMPRESSION: Normal appendix. Nonobstructing renal calculi. No obstructing ureteral stones or hydronephrosis. Enlarged fatty liver with associated splenomegaly. Sludge versus noncalcified stones in the gallbladder; correlation with ultrasound may be of benefit. No findings of cholecystitis or biliary ductal dilatation. Electronically Signed: Polo Aponte MD at 6:11 EDT , Gallbladder Ultrasound 02/01/22 06:33 IMPRESSION: 1. Parenchymal liver disease. 2. Right nephrolithiasis. 3. Normal gallbladder. Electronically Signed: Jose Aldana MD at 8:17 EDT , <Dr. Jose Carranza MD - Last Filed: 02/01/22 09:23> [facility] MDM Narrative Medical decision making narrative: 06:15 Patient's recheck. She did get more nauseated so we did give her some Benadryl and Zofran. She is actually drinking a cup of liquids right now. She states the pain is better. She is not is tender in the abdomen as she seemed to be before. This is improved. Her white count is normal. Hemoglobin platelets are normal. Electrolytes show no marked abnormalities. Glucose is minimally elevated 131. Liver function tests are normal other than an ALT slightly up at 59. Urine showed no signs of infection. CAT scan showed possible sludge versus noncalcified stone in the gallbladder. But there was no change in size, wall thickening, or pericholecystic fluid or stranding. No sign of biliary ductal dilation. I will give the patient some pantoprazole because she states she taste and add a acid taste in her mouth quite a bit. We will see if we can get her meds and get her home feeling better. Even though her pain is much less, I will give her some Toradol to see if this brings it down completely. Patient's symptoms are more consistent with a mild gastroenteritis with diarrhea nausea and vomiting. But she does have some pain that seems to be more toward the right upper quadrant. But there is no sign of inflammatory changes. Her white count and liver function test are normal. As long as we get her better I think she can follow-up as an outpatient. She may need further studies such as ultrasound or HIDA scan. This certainly could be an episode of biliary colic. 06:30 Patient has vomited again. This is after second dose of Zofran. I will try some pantoprazole because she is having rotten eggs belching. We will try Phenergan to see if that helps her nausea better. Because she still having symptoms and does show signs of either sludge or gallstones I will get an ultrasound to better evaluate the gallbladder. If the ultrasound shows no acute issues that are surgical and we can get the patient better I still think she can go home. The studies are pending at this time. I was informed at 0811 the patient states her abdominal pain is returning and nausea is returning. We will treat the nausea with Reglan. Since the etiology of her abdominal pain is uncertain will administer Bentyl since she has already received ketorolac, morphine and pantoprazole. Patient was reassessed at 0833. She states she just received the Reglan. Will reassess in 30 minutes. Patient was reassessed at 0917. Her pain has improved markedly after Bentyl and nausea resolved with Reglan. Will discharge with prescription for Reglan and dicyclomine. Patient been instructed follow-up with her primary care physician. She was informed that the cause of her pain is uncertain. Lab Data Labs: Laboratory Results - last 24 hr 02/01/22 02/01/22 02/01/22 04:36 04:36 04:54 WBC 10.0 RBC 4.93 Hgb 14.7 Hct 43.9 MCV 89.0 MCH 29.8 MCHC 33.5 RDW Std Deviation 39.2 RDW Coeff of Jarod 12.1 Plt Count 180 MPV 10.8 Immature Gran % (Auto) 0.300 Neut % (Auto) 75.7 H Lymph % (Auto) 17.1 L [place] % (Auto) 4.0 Eos % (Auto) 2.3 Baso % (Auto) 0.6 Absolute Neuts (auto) 7.5 Absolute Lymphs (auto) 1.70 Nucleated RBC % 0 Sodium 138 Potassium 4.2 Chloride 105 Carbon Dioxide 27.0 Anion Gap 6 BUN 9 Creatinine 0.96 Estim Creat Clear Calc 60.55 Est GFR (MDRD) Af Amer 84 Est GFR (MDRD) Non-Af 69 BUN/Creatinine Ratio 9.3 L Glucose 131 H Calcium 9.2 Total Bilirubin 0.40 AST 24 ALT 59 H Alkaline Phosphatase 65 Total Protein 7.8 Albumin 3.6 Globulin 4.2 Albumin/Globulin Ratio 0.9 Lipase 59 L Urine Color Yellow Urine Clarity Clear Urine pH 6.0 Ur Specific [place] 1.025 Urine Protein 15 H Urine Glucose (UA) Normal Urine Ketones 5 H Urine Occult Blood Negative Urine Nitrite Negative Urine Bilirubin 1 H Urine Urobilinogen 1 H Ur Leukocyte Esterase Negative Urine RBC 0 SEEN Urine WBC 0-5 SEEN Ur Squamous Epith Cells 5-10 SEEN Urine Bacteria 3+ Urine Mucus 4+ Radiography Diagnostic Testing: Clinical Impression(s) from Imaging Studies Abdomen/Pelvis CT 02/01/22 04:23 IMPRESSION: Normal appendix. Nonobstructing renal calculi. No obstructing ureteral stones or hydronephrosis. Enlarged fatty liver with associated splenomegaly. Sludge versus noncalcified stones in the gallbladder; correlation with ultrasound may be of benefit. No findings of cholecystitis or biliary ductal dilatation. Electronically Signed: Polo Aponte MD at 6:11 EDT , Gallbladder Ultrasound 02/01/22 06:33 IMPRESSION: 1. Parenchymal liver disease. 2. Right nephrolithiasis. 3. Normal gallbladder. Electronically Signed: Jose Aldana MD at 8:17 EDT , Ultrasound right upper quadrant reveals no abnormality of the liver. Gallbladder appears normal. Gallbladder wall is not thickened. There is no gallstones noted. The kidney appears normal. Awaiting formal read by radiologist, [id number]. Discharge Plan Triage Chief Complaint: Abd Pain ED Provider: Elder Merchant Dx/Rx/DC Orders Clinical Impression: Abdominal pain, Nausea vomiting and diarrhea Instructions: ED Vomiting (Adult) Prescriptions: New dicyclomine 10 mg capsule 20 mg PO TIDAC Qty: 20 0RF metoclopramide HCl [metoclopramide HCl] 10 mg tablet 10 mg PO 4X/DAY PRN (Reason: Headache) Qty: 20 0RF No Action gabapentin 300 mg capsule 300 mg PO DAILY venlafaxine 75 mg capsule,extended release 24hr 75 mg PO DAILY Label Comments: TAKE 1 CAPSULE BY MOUTH DAILY WITH FOOD albuterol sulfate [Ventolin HFA] 90 mcg/actuation HFA aerosol inhaler 2 puff INHALATION Q4H PRN PRN (Reason: sob) Qty: 8.5 0RF meclizine 25 mg tablet 25 mg PO DAILY PRN (Reason: dizziness) Qty: 30 0RF diazepam [Valium] 2 mg tablet 2 mg PO QHS PRN (Reason: muscle spasm) Qty: 10 0RF Primary Care Provider: Yohannes Downey Referrals: Yohannes Downey MD [Primary Care Provider] - 3-5 Days Disposition Disposition: Home, Self Care
[2022-02-01] MEDS: 0.9% Normal Saline 1,000 ML 1000 ML IV (04:36)
[2022-02-01] MEDS: Ondansetron 4 MG/2 ML Vial IV ×2 (04:36→05:55)
[2022-02-01 04:46] LABS: Absolute Neutrophil Count 7.5 X10^3/uL (2.0-7.7); Basophil# 0.06 X10^3/uL; Basophil% 0.6 % (0-1); Eosinophil# 0.23 X10^3/uL; Eosinophils% 2.3 % (0-5); Hematocrit 43.9 % (37-47); Hemoglobin 14.7 g/dL (12.0-15.0); Lymphocyte % 17.1 % (19-41); Mean Corp Hgb Conc 33.5 g/dL (32-36); Mean Corpuscular Hgb 29.8 pg (27.0-32.0); Mean Platelet Vol. 10.8 fl (6.2-12.0); NRBC Flagged by Analyzer 0 % (0-5); Neutrophil # 7.53 X10^3/uL (2.7-7.7); Neutrophil % 75.7 % (47-70); Platelet Count 180 K/mm3 (150-450); RBC Distribution Width CV 12.1 % (11.6-14.6); RBC Distribution Width SD 39.2 fl (35.1-43.9); Red Blood Count 4.93 M/mm3 (4.2-5.4)
[2022-02-01] MEDS: Morphine 4 MG/ML Syringe IV (04:51)
[2022-02-01 05:01] LABS: Red Blood Cells-Urine 0 SEEN /hpf (0-5)
[2022-02-01 05:02] LABS: ALB/GLOB Ratio 0.9 RATIO (0.9-2.4); AST(SGOT) 24 U/L (15-37); Alanine Aminotransfer ALT/SGPT 59 U/L (13-56); Albumin, Serum 3.6 g/dL (3.2-5.0); Alkaline Phosphatase 65 U/L (45-117); Anion Gap 6 (5-15); BUN 9 mg/dL (7-18); BUN/Creat Ratio 9.3 RATIO (10-20); Calcium,Total 9.2 mg/dL (8.5-10.1); Chloride 105 mmol/L (98-107); Creatinine, Serum 0.96 mg/dL (0.55-1.02); EST Glomerular Filtration Rate 69 mL/min (>60); Est Glom Filt Rate - Afr Amer 84 mL/min (>60); Estimated Creatinine Clearance 60.55 ml/min; Globulin 4.2 g/dL (2.2-4.2); Glucose 131 mg/dL (74-106); Lipase 59 U/L (73-393); Potassium 4.2 mmol/L (3.5-5.1); Protein, Total 7.8 g/dL (6.4-8.2); Sodium Level 138 mmol/L (136-145)
[2022-02-01 05:05] LABS: Color, Urine Yellow (Yellow); Glucose, Dipstick Normal (Normal); Ketone-Dipstick 5 mg/dl (Negative); Leukocyte Esterase-Dipstick Negative /ul (Negative); Nitrite-Dipstick Negative (Negative); Occult Blood-Urine Negative /ul (Negative); Protein-Dipstick 15 mg/dl (Negative); Specific Gravity, Urine 1.025 (1.002-1.030); Urine Bilirubin Dipstick 1 mg/dL (Negative); Urine Clarity Clear (Clear); Urine Urobilinogen 1 mg/dl (Normal)
[2022-02-01 05:11] LABS: Bacteria 3+ /hpf (None Seen); Mucous, Urine 4+ /hpf (<or=2+); Squamous Epithelial Cells - UA 5-10 SEEN /hpf (5-10); White Blood Cells 0-5 SEEN /hpf (0-5)
[2022-02-01 05:50] VITALS: BP 106/67; PULSE 72; RESP 16; O2SAT 98
[2022-02-01] MEDS: DiphenhydrAMINE 50 MG/ML Syringe 25 MG IV (05:57)
--- NOTE | 2022-02-01 06:33 | US_ITS ---
EXAM: US ABDOMEN LIMITED, RIGHT UPPER QUADRANT CLINICAL INDICATION: pain -- RT ABD PAIN X 2 DAYS, N/V -- F/U CT TECHNIQUE: Real-time ultrasound of the right upper quadrant with image documentation. This report was created using [employer] report generation technology. COMPARISON: None. FINDINGS: LIVER: Liver echogenicity appears increased suggesting diffuse parenchymal liver disease, likely steatosis. No intrahepatic biliary ductal dilation. GALLBLADDER: Normal. No shadowing gallstone. No gallbladder wall thickening is demonstrated. No pericholecystic fluid. Negative sonographic Simmons''s sign. COMMON BILE DUCT: Unremarkable as visualized. The proximal common bile duct is within normal limits for the patient''s age. PANCREAS: Unremarkable as visualized. No focal abnormality is demonstrated in the pancreas. No pancreatic ductal dilatation. RIGHT KIDNEY: Question of a punctate stone within the right kidney. There is no hydronephrosis. No focal lesion or perinephric collection is demonstrated. US/Gallbladder IMPRESSION: 1. Parenchymal liver disease. 2. Right nephrolithiasis. 3. Normal gallbladder. Electronically Signed: Jose Aldana MD at 8:17 EDT ,
[2022-02-01] MEDS: Ketorolac 15 MG/ML Vial IV (06:40)
[2022-02-01] MEDS: proMETHazine 25 MG/ML Syringe 12.5 MG IM (06:42)
[2022-02-01 07:57] VITALS: BP 104/62; PULSE 55; RESP 18; O2SAT 96
[2022-02-01] MEDS: Metoclopramide 10 MG/2 ML Vial 5 MG IV (08:18)
[2022-02-01] MEDS: Dicyclomine 10 MG Capsule 20 MG PO (08:18)
[2022-02-01 09:24] VITALS: BP 101/62; PULSE 62; RESP 16; O2SAT 98
== END 2022-02-01 09:33 | disposition home or self-care (01) ==
PROVIDERS: Emergency Provider Emergency Medicine; PCP Family Medicine; Visit Provider Emergency Medicine
DX: R10.9 Unspecified abdominal pain (principal); F31.9 Bipolar disorder, unspecified; Z87.891 Personal history of nicotine dependence; R19.7 Diarrhea, unspecified; R11.2 Nausea with vomiting, unspecified
CPT/HCPCS: 74176; 76705; 80053; 81001; 83690; 85025; 99283; J7050; A4216; J2405; J3490

== ENCOUNTER 2022-02-05 03:19 | Emergency (ER) | payer MEDICAID, SELFPAY ==
[2022-02-05 03:20] VITALS: BP 142/77; PULSE 86; RESP 18; TEMP 36.7; O2SAT 96; BMI 33.7
--- NOTE | 2022-02-05 03:45 | EX.ED.DYSGE1 ---
HPI History of Present Illness Chief Complaint: Abd Pain Narrative Narrative: 37-year-old female presenting with right rib and right upper quadrant pain. To some degree she has this on the left side as well. Patient was seen here 3 days ago for right upper quadrant pain. At that point she had lab work which was all normal. She had a CT of the abdomen pelvis which was normal. She had right upper quadrant ultrasound which was normal. At that point she had had some nausea and vomiting which did take some time to resolve. She has not had a problem with the nausea and vomiting since. Today she states that she mowed the lawn and felt okay but after going to sleep and sleeping on her right side she woke up with pain and the feeling of spasm in the right ribs. She states she took 400 mg of ibuprofen. She tried to take a hot shower but this did not help. She does state that she has had some intermittent pain in the right side of her face and cheek which has been going on for months which is not new. She also has chronic back pain which is also not new. [facility] Medical History Anxiety Back pain Bipolar 2 disorder Bulging disc Migraine Panic attack Home Medications albuterol sulfate 90 mcg/actuation aerosol inhaler (Ventolin HFA) 2 puff inhalation Q4H PRN PRN sob #8.5 grams 11/30/21 [Rx Last Taken Unknown] diazepam 2 mg tablet (Valium) 2 mg PO QHS PRN muscle spasm #10 tabs 12/12/21 [Rx Last Taken Unknown] lidocaine 5 % topical patch (Lidoderm) 3 patch topical DAILY PRN pain #15 ea 02/05/22 [Rx Last Taken Unknown] tizanidine 4 mg capsule (Zanaflex) 4 mg PO Q8H PRN muscle spasticity #14 caps 02/05/22 [Rx Last Taken Unknown] Allergy/AdvReac Type Severity Reaction Status Date / Time Sulfa (Sulfonamide Allergy Rash Verified 02/01/22 04:03 Antibiotics) Social History Smoking Status: Former smoker ROS ROS ED Constitutional Constitutional ED: Denies chills or fever(s) Eyes Eyes: Denies blurry vision or change in vision ENT ENT ED: Denies rhinorrhea or sore throat Cardiovascular Cardiovascular: Reports other Details: Right rib pain ; Denies chest pain or palpitations Respiratory/Chest Respiratory/Chest: Denies cough or dyspnea Gastrointestinal Gastrointestinal: Reports abdominal pain Genitourinary Genitourinary ED: Denies dysuria or hematuria Musculoskeletal Musculoskeletal: Denies arthralgias Integumentary Denies abscess or Abrasions Neurologic Neurologic: Denies headache(s) Psychiatric Psychiatric: Denies anxiety or depression EXAM Physical Exam Const Vital Signs: 02/05/22 03:20 Temperature 98.0 F Temperature Source Temporal Pulse Rate 86 Respiratory Rate 18 Blood Pressure 142/77 H Blood Pressure Mean 98 Pulse Ox 96 Oxygen Delivery Method Room Air Positive well nourished General Appearance ED: NAD; Negative for pallor HEENT Reports moist mucous membranes and dry mucous membranes Negative for trauma Mouth ED: Yes dry mucous membranes Mouth: dry mucous membranes Eyes PERRL and EOMs intact bilaterally Chest Wall Chest Narrative: Tenderness to palpation over the right ribs in the midaxillary line and extending into the mid axillary line. No bruising, deformity, crepitance. Equal symmetric breath sounds and chest wall rise. Resp Auscultation: Negative for rales, rhonchi or wheezes Cardio regular rate and regular rhythm GI GI Narrative: Mild tenderness to palpation the right upper abdomen and right ribs Palpation: soft Back/Spine no CVA tenderness Neuro oriented x3 and CN's II-XII intact bilaterally Sensorium / Orientation: alert Psych mental status grossly normal Skin no rashes or lesions noted and no wounds General Skin Exam: Negative for jaundice or pallor MDM MDM MDM Narrative Medical decision making narrative: Patient presenting with what sounds like a muscle strain. She is not having any nausea and vomiting which she did on her previous visit. She states he mowed the lawn today and did not recall hurting herself but after going to sleep on her right side she notes her right ribs are sore. She does not feel short of breath. She has had this previously and it feels similar. At that point she had a full cardiac work-up. 3 days ago she had a full GI work-up with blood work which was normal. She had a normal CT of the abdomen pelvis as well as right upper quadrant ultrasound. Her nausea and vomiting is now resolved. I suspect she strained this while mowing the grass. Patient was given Norflex and Toradol in the ED. She will be given muscle relaxers and Lidoderm patches for home. She can alternate Tylenol and ibuprofen. I do not believe she needs further blood work or imaging. Impression: 1. Muscle strain 2. Rib pain Discharge Plan Triage Chief Complaint: Abd Pain ED Provider: Jeremy Ramirez Dx/Rx/DC Orders Instructions: ED Muscle Spasm Prescriptions: New tizanidine [Zanaflex] 4 mg capsule 4 mg PO Q8H PRN (Reason: muscle spasticity) Qty: 14 0RF lidocaine [Lidoderm] 5 % adhesive patch,medicated 3 patch topical DAILY PRN (Reason: pain) Qty: 15 0RF Rx Instructions: leave on most painful area for up to 12 hrs No Action albuterol sulfate [Ventolin HFA] 90 mcg/actuation HFA aerosol inhaler 2 puff INHALATION Q4H PRN PRN (Reason: sob) Qty: 8.5 0RF diazepam [Valium] 2 mg tablet 2 mg PO QHS PRN (Reason: muscle spasm) Qty: 10 0RF Primary Care Provider: Yohannes Downey Referrals: Yohannes Downey MD [Primary Care Provider] - Disposition Disposition: Home, Self Care
[2022-02-05] MEDS: Lidocaine 5% Patch 1 PATCH TOPICAL (03:49)
[2022-02-05] MEDS: Orphenadrine 60 MG/2 ML Ampul IM (03:50)
[2022-02-05] MEDS: Ketorolac 15 MG/ML Vial IM (03:51)
[2022-02-05 04:06] VITALS: BP 112/78; PULSE 79; RESP 17; O2SAT 97
== END 2022-02-05 04:08 | disposition home or self-care (01) ==
PROVIDERS: Emergency Provider Student in an Organized Health Care Education/Training Program; PCP Family Medicine; Visit Provider Student in an Organized Health Care Education/Training Program
DX: R10.11 Right upper quadrant pain (principal); F31.9 Bipolar disorder, unspecified; R07.81 Pleurodynia; M54.9 Dorsalgia, unspecified; G89.29 Other chronic pain; R11.2 Nausea with vomiting, unspecified; Z87.891 Personal history of nicotine dependence
CPT/HCPCS: 96372; 99283; A4216

== ENCOUNTER 2022-02-16 01:09 | Emergency (ER) | payer MEDICAID, SELFPAY ==
[2022-02-16 01:11] VITALS: BP 116/104; PULSE 87; RESP 16; TEMP 36.8; O2SAT 98; BMI 33.6
--- NOTE | 2022-02-16 01:38 | RAD_ITS ---
STUDY: X-RAY - ACUTE ABDOMINAL SERIES REASON FOR EXAM: Female, 37 years old. Abdominal pain TECHNIQUE: Single view of the chest. AP erect and supine views of the abdomen were obtained. COMPARISON: None. FINDINGS: No confluent airspace opacity. No pleural effusion or pneumothorax. Normal size heart. Normal mediastinum and amauri. Normal visualized pulmonary arteries. Normal visualized aortic arch and descending thoracic aorta. There is a non-specific bowel gas pattern. The soft tissue structures of the abdomen and pelvis are unremarkable. Normal visualized osseous structures. RAD/Acute Abdomen Inc Chest IMPRESSION: Normal x-ray examination of the chest, abdomen, and pelvis. Electronically Signed: Darren Marsh MD at 3:20 EDT ,
[2022-02-16 02:01] LABS: Mucous, Urine 0 SEEN /hpf (<or=2+); Red Blood Cells-Urine 0 SEEN /hpf (0-5)
[2022-02-16 02:02] LABS: Color, Urine Yellow (Yellow); Glucose, Dipstick Normal (Normal); Ketone-Dipstick Negative (Negative); Leukocyte Esterase-Dipstick Negative /ul (Negative); Nitrite-Dipstick Negative (Negative); Occult Blood-Urine Negative /ul (Negative); Protein-Dipstick Negative (Negative); Urine Bilirubin Dipstick Negative (Negative); Urine Clarity Sl. Cloudy (Clear); Urine Urobilinogen 1 mg/dl (Normal)
[2022-02-16 02:08] LABS: Amorphous Sediment 1+; Bacteria 1+ /hpf (None Seen); Squamous Epithelial Cells - UA 5-10 SEEN /hpf (5-10); White Blood Cells 0 SEEN /hpf (0-5)
[2022-02-16 02:08] LABS: Absolute Lymphocyte Count 2.65 X10^3/uL (0.83-4.51); Basophil# 0.04 X10^3/uL; Basophil% 0.4 % (0-1); Eosinophil# 0.36 X10^3/uL; Eosinophils% 3.4 % (0-5); Hematocrit 42.3 % (37-47); Hemoglobin 14.2 g/dL (12.0-15.0); Lymphocyte # 2.65 X10^3/ul (0.83-4.51); Lymphocyte % 24.9 % (19-41); Mean Corp Hgb Conc 33.6 g/dL (32-36); Mean Corpuscular Hgb 29.8 pg (27.0-32.0); Mean Corpuscular Volume 88.9 fL (81-99); Mean Platelet Vol. 10.7 fl (6.2-12.0); Monocyte# 0.51 X10^3/uL; Monocyte% 4.8 % (0-10); NRBC Flagged by Analyzer 0 % (0-5); Neutrophil # 7.04 X10^3/uL (2.7-7.7); Neutrophil % 66.1 % (47-70); Platelet Count 175 K/mm3 (150-450); RBC Distribution Width CV 12.2 % (11.6-14.6); RBC Distribution Width SD 39.6 fl (35.1-43.9); Red Blood Count 4.76 M/mm3 (4.2-5.4); White Blood Count 10.6 K/mm3 (4.4-11.0)
[2022-02-16] MEDS: Ondansetron 4 MG/2 ML Vial IV (02:11)
[2022-02-16] MEDS: 0.9% Normal Saline 1,000 ML 999 ML IV (02:11)
[2022-02-16 02:25] LABS: AST(SGOT) 19 U/L (15-37); Alanine Aminotransfer ALT/SGPT 45 U/L (13-56); Albumin, Serum 3.4 g/dL (3.2-5.0); Alkaline Phosphatase 66 U/L (45-117); Anion Gap 6 (5-15); BUN 11 mg/dL (7-18); BUN/Creat Ratio 11.2 RATIO (10-20); Bilirubin, Direct 0.07 mg/dL (0.00-0.30); Calcium,Total 9.1 mg/dL (8.5-10.1); Chloride 107 mmol/L (98-107); Creatinine, Serum 0.98 mg/dL (0.55-1.02); EST Glomerular Filtration Rate 68 mL/min (>60); Est Glom Filt Rate - Afr Amer 82 mL/min (>60); Estimated Creatinine Clearance 59.31 ml/min; Glucose 147 mg/dL (74-106); Lipase 63 U/L (73-393); Magnesium 2.3 mg/dL (1.6-2.6); Potassium 4.3 mmol/L (3.5-5.1); Protein, Total 7.4 g/dL (6.4-8.2); Sodium Level 137 mmol/L (136-145)
[2022-02-16 02:32] VITALS: BP 136/74
--- NOTE | 2022-02-16 02:41 | EDS_ITS ---
HPI History of Present Illness Chief Complaint: Abd Pain Narrative Narrative: Patient is a 37-year-old female who is seen on February 01 for same complaint. At that time she had noncontrast CAT scan as well as an ultrasound of her gallbladder obtained. These revealed no clinically significant findings and patient was discharged home. She states a few days after presentation her symptoms resolved and she has been doing well. However starting today she woke up with generalized abdominal discomfort that has increased throughout the day leading to bouts of nausea and vomiting with some loose stool/diarrhea. She denies any known recent sick contact but states she cannot get her symptoms under control at home and secondary to this comes in for evaluation [facility] Medical History Anxiety Back pain Bipolar 2 disorder Bulging disc Migraine Panic attack Home Medications albuterol sulfate 90 mcg/actuation aerosol inhaler (Ventolin HFA) 2 puff inhalation Q4H PRN PRN sob #8.5 grams 11/30/21 [Rx Last Taken Unknown] diazepam 2 mg tablet (Valium) 2 mg PO QHS PRN muscle spasm #10 tabs 12/12/21 [Rx Last Taken Unknown] lidocaine 5 % topical patch (Lidoderm) 3 patch topical DAILY PRN pain #15 ea 02/05/22 [Rx Last Taken Unknown] tizanidine 4 mg capsule (Zanaflex) 4 mg PO Q8H PRN muscle spasticity #14 caps 02/05/22 [Rx Last Taken Unknown] promethazine 25 mg tablet 25 mg PO TID PRN nausea and vomiting 7 days #21 tabs 02/16/22 [Rx Last Taken Unknown] Allergy/AdvReac Type Severity Reaction Status Date / Time Sulfa (Sulfonamide Allergy Rash Verified 02/01/22 04:03 Antibiotics) Social History Smoking Status: Former smoker ROS ROS ED Constitutional Constitutional ED: Denies chills or fever(s) ENT ENT ED: Denies sore throat Cardiovascular Cardiovascular: Denies chest pain Respiratory/Chest Respiratory/Chest: Denies cough or dyspnea Gastrointestinal Gastrointestinal: Reports abdominal pain, diarrhea, nausea and vomiting Genitourinary Genitourinary ED: Denies dysuria or hematuria Musculoskeletal Musculoskeletal: Denies back pain or myalgias Integumentary Denies rash Neurologic Neurologic: Denies headache(s) Hematologic/Lymphatic Hematologic/Lymphatic: Denies easy bleeding or easy bruising EXAM Physical Exam Const Vital Signs: 02/16/22 01:11 02/16/22 02:32 02/16/22 02:59 Temperature 98.2 F 98 F Temperature Source Temporal Oral Pulse Rate 87 Respiratory Rate 16 Blood Pressure 116/104 H 136/74 H Blood Pressure Mean 108 94 Pulse Ox 98 Oxygen Delivery Method Room Air Positive well nourished and well developed General Appearance ED: well developed HEENT HEENT Narrative: Mucous membranes are slightly dry and tacky Eyes PERRL and EOMs intact bilaterally General Eye ED: Negative for scleral icterus Neck supple Resp normal respiratory effort and clear to auscultation bilaterally Cardio regular rate and regular rhythm Rate: other Other Details: Radial pulses are plus 2 out of 4 bilaterally are equal and symmetric GI non-distended GI Narrative: Abdomen is soft and nondistended with hyperactive bowel sounds. There is mild pain with palpation diffusely without voluntary guarding or rigidity. No pulsatile mass. No fluid wave or increased tympany noted Auscultation: hyperactive bowel sounds Palpation: soft Extremity normal to inspection Neuro oriented x3 and CN's II-XII intact bilaterally Sensorium / Orientation: alert Psych mental status grossly normal Skin no rashes or lesions noted General Skin Exam: Negative for jaundice MDM MDM MDM Narrative Medical decision making narrative: Patient presented to the ER with stable vitals and a soft nonsurgical abdomen. She had a CT scan and ultrasound on February 01 and therefore I felt no need for repeat imaging studies other than an x-ray as she does have a history of C- section and there was concern her symptoms could be related to possible obstruction. X-ray revealed no acute finding. Blood work also revealed no clinically significant finding. The patient's urine showed +1 bacteria but there is contamination with 5-10 epithelial cells which does not correlate with a UTI especially as patient does not have symptoms. Patient was given IV hydration as well as Zofran and Compazine and had no further bouts of vomiting. On reevaluation she reports improvement of symptoms and her abdomen remains soft and nonsurgical. Therefore this time with work-up revealing no clinically significant findings and patient having improvement of symptoms she is otherwise safe for discharge Lab Data Attestation: I reviewed the patient's lab results. Labs: Laboratory Results - last 24 hr 02/16/22 02/16/22 02/16/22 01:49 02:00 02:00 WBC 10.6 RBC 4.76 Hgb 14.2 Hct 42.3 MCV 88.9 MCH 29.8 MCHC 33.6 RDW Std Deviation 39.6 RDW Coeff of Jarod 12.2 Plt Count 175 MPV 10.7 Immature Gran % (Auto) 0.400 Neut % (Auto) 66.1 Lymph % (Auto) 24.9 [place] % (Auto) 4.8 Eos % (Auto) 3.4 Baso % (Auto) 0.4 Absolute Neuts (auto) 7.0 Absolute Lymphs (auto) 2.65 Nucleated RBC % 0 Sodium 137 Potassium 4.3 Chloride 107 Carbon Dioxide 24.0 Anion Gap 6 BUN 11 Creatinine 0.98 Estim Creat Clear Calc 59.31 Est GFR (MDRD) Af Amer 82 Est GFR (MDRD) Non-Af 68 BUN/Creatinine Ratio 11.2 Glucose 147 H Calcium 9.1 Magnesium 2.3 Total Bilirubin 0.30 Direct Bilirubin 0.07 AST 19 ALT 45 Alkaline Phosphatase 66 Total Protein 7.4 Albumin 3.4 Globulin 4.0 Lipase 63 L Urine Color Yellow Urine Clarity Sl. Cloudy Urine pH 7.0 Ur Specific Cherry 1.010 Urine Protein Negative Urine Glucose (UA) Normal Urine Ketones Negative Urine Occult Blood Negative Urine Nitrite Negative Urine Bilirubin Negative Urine Urobilinogen 1 H Ur Leukocyte Esterase Negative Urine RBC 0 SEEN Urine WBC 0 SEEN Ur Squamous Epith Cells 5-10 SEEN Amorphous Sediment 1+ Urine Bacteria 1+ Urine Mucus 0 SEEN Radiography Diagnostic Testing: Clinical Impression(s) from Imaging Studies Acute Abdomen Series 02/16/22 01:38 IMPRESSION: Normal x-ray examination of the chest, abdomen, and pelvis. Electronically Signed: Darren Marsh MD at 3:20 EDT , Acute abdominal series with 1 view chest as interpreted by the emergency medicine physician reveals a nonobstructive bowel gas pattern with no infiltrate pneumothorax or pleural effusion on the chest x-ray. Discharge Plan Triage Chief Complaint: Abd Pain ED Provider: Elvin Ye Dx/Rx/DC Orders Clinical Impression: Nausea vomiting and diarrhea Instructions: ED Gastroenteritis, Viral (Adult) Prescriptions: New promethazine 25 mg tablet 25 mg PO TID PRN (Reason: nausea and vomiting) 7 Days Qty: 21 0RF No Action albuterol sulfate [Ventolin HFA] 90 mcg/actuation HFA aerosol inhaler 2 puff INHALATION Q4H PRN PRN (Reason: sob) Qty: 8.5 0RF diazepam [Valium] 2 mg tablet 2 mg PO QHS PRN (Reason: muscle spasm) Qty: 10 0RF tizanidine [Zanaflex] 4 mg capsule 4 mg PO Q8H PRN (Reason: muscle spasticity) Qty: 14 0RF lidocaine [Lidoderm] 5 % adhesive patch,medicated 3 patch topical DAILY PRN (Reason: pain) Qty: 15 0RF Rx Instructions: leave on most painful area for up to 12 hrs Primary Care Provider: Yohannes Downey Referrals: Friend,Chandra, DO [Med Staff - Active Staff] - 1 Week if not improving Activity Restrictions/Additional Instructions: Please eat a bland diet and have smaller frequent meals as there is a chance that symptoms are related to a malfunctioning gallbladder. This would need further diagnosis through something called a HIDA scan. Please talk to the patient scheduling manager about possibly obtaining the scan or need for EGD/scope if your symptoms persist and return to the ER should you have any further concerns. Disposition Disposition: Home, Self Care
[2022-02-16] MEDS: proCHLORPERazine 10 MG/2 ML Vial IV (02:56)
[2022-02-16 02:59] VITALS: TEMP 36.6
[2022-02-16 03:47] VITALS: BP 136/74; PULSE 78; RESP 16; O2SAT 97
== END 2022-02-16 03:48 | disposition home or self-care (01) ==
PROVIDERS: Emergency Provider Emergency Medicine; PCP Family Medicine; Visit Provider Emergency Medicine
DX: R11.2 Nausea with vomiting, unspecified (principal); F31.9 Bipolar disorder, unspecified; Z87.891 Personal history of nicotine dependence; R10.9 Unspecified abdominal pain; R19.7 Diarrhea, unspecified
CPT/HCPCS: 74022; 80048; 80076; 81001; 83690; 83735; 85025; 96361; 96374; 96375; 99283; J7030; A4216; J2405

== ENCOUNTER 2022-03-15 12:18 | Emergency (ER) | payer MEDICAID, SELFPAY ==
[2022-03-15 12:20] VITALS: BP 122/70; PULSE 79; RESP 18; TEMP 36.2; O2SAT 98; BMI 33.0
--- NOTE | 2022-03-15 13:05 | EKG12_ITS ---
Test Reason : GEN ILLNESS Blood Pressure : / mmHG Vent. Rate : 067 BPM Atrial Rate : 067 BPM P-R Int : 144 ms QRS Dur : 088 ms QT Int : 406 ms P-R-T Axes : 038 038 021 degrees QTc Int : 429 ms Normal sinus rhythm with sinus arrhythmia Low voltage QRS Borderline ECG Confirmed by LOGAN CORCORAN, JUANITA ([id number]), editorial director ALYSSA OMER ([id number]) on 03/16/2022 1:12:51 PM Referred By: MAMI Confirmed By:JUANITA FORD MD
--- NOTE | 2022-03-15 13:07 | EX.ED.DYSGE1 ---
HPI History of Present Illness Chief Complaint: General Illness Informant: patient Narrative Narrative: 4-day history of nontraumatic generalized headaches. States will have changes in vision blurry vision. No loss of vision. Nausea without vomiting. History of migraines however states feels different. No fevers. States been having worsening right-sided chest discomfort on and off. Chronic chest pain discomfort states been worked up and negative in the past. Recently stopped smoking as residual cough. No sputum. Currently only medical history of anxiety and lumbar disc issues. Nonvaccinated for COVID had COVID once in the past that was mild. Prior similar symptoms: No PFSH PFSH Medical History Anxiety Back pain Bipolar 2 disorder Bulging disc Migraine Panic attack Home Medications albuterol sulfate 90 mcg/actuation aerosol inhaler (Ventolin HFA) 2 puff inhalation Q4H PRN PRN sob #8.5 grams 11/30/21 [Rx Last Taken Unknown] diazepam 2 mg tablet (Valium) 2 mg PO QHS PRN muscle spasm #10 tabs 12/12/21 [Rx Last Taken Unknown] lidocaine 5 % topical patch (Lidoderm) 3 patch topical DAILY PRN pain #15 ea 02/05/22 [Rx Last Taken Unknown] tizanidine 4 mg capsule (Zanaflex) 4 mg PO Q8H PRN muscle spasticity #14 caps 02/05/22 [Rx Last Taken Unknown] promethazine 25 mg tablet 25 mg PO TID PRN nausea and vomiting 7 days #21 tabs 02/16/22 [Rx Last Taken Unknown] Allergy/AdvReac Type Severity Reaction Status Date / Time Sulfa (Sulfonamide Allergy Rash Verified 03/15/22 12:20 Antibiotics) Social History Smoking Status: Former smoker ROS ROS ED Constitutional Constitutional ED: Denies chills, fever(s) or sweats Eyes Eyes: Denies change in vision ENT ENT ED: Denies dysphagia or sore throat Cardiovascular Cardiovascular: Reports chest pain; Denies leg edema, palpitations or racing heartbeat Respiratory/Chest Respiratory/Chest: Denies cough, dyspnea or dyspnea on exertion Gastrointestinal Gastrointestinal: Reports nausea; Denies abdominal pain, diarrhea or vomiting Genitourinary Genitourinary ED: Denies dysuria, hematuria or urinary frequency Musculoskeletal Musculoskeletal: Denies back pain, extremity pain or neck pain Integumentary Denies rash or wounds Neurologic Neurologic: Reports headache(s); Denies paresthesias or weakness EXAM Physical Exam Const Vital Signs: 03/15/22 12:20 03/15/22 12:31 03/15/22 14:26 Temperature 97.2 F L Temperature Source Temporal Pulse Rate 79 76 Respiratory Rate 18 16 Respiratory Effort Normal Non-Labored Respiratory Pattern Normal Blood Pressure 122/70 H 136/78 H Blood Pressure Mean 87 97 Pulse Ox 98 96 Oxygen Delivery Method Room Air Room Air Positive well nourished and well developed General Appearance ED: well developed and NAD HEENT Reports moist mucous membranes normocephalic and atraumatic Eyes PERRL, EOMs intact bilaterally and conjunctivae normal General Eye ED: Yes normal appearance of both eyes Neck no lymphadenopathy and supple Neck Narrative: No meningismus General: Negative for tenderness Chest Wall Chest: Negative for tenderness Resp normal respiratory effort and normal air movement Effort and Inspection: symmetric chest movement; Negative for respiratory distress Cardio regular rate, regular rhythm and no murmurs Peripheral Pulses: pulses 2+ throughout GI normal to inspection, nondistended, normoactive bowel sounds and non-tender Palpation: Negative for guarding or rebound tenderness present Back/Spine no CVA tenderness and no thoracic nor lumbar tenderness Extremity normal to inspection General Extremety ED: Negative for edema or tenderness General Extremity: Negative for edema Neuro oriented x3, CN's II-XII intact bilaterally and no sensory deficits noted Sensorium / Orientation: awake and alert Skin no rashes or lesions noted and no wounds MDM MDM MDM Narrative Medical decision making narrative: Patient with chest pains cardiac work-up negative heart score is a 1. PERC criteria negative. Headache symptoms no meningismus or focal deficits. COVID testing negative. Treated with Reglan Benadryl and fluids with improving symptoms. Symptoms more tolerable. Is discharged outpatient follow-up. All questions were answered. Lab Data Attestation: I reviewed the patient's lab results. Labs: Laboratory Results - last 24 hr 03/15/22 03/15/22 13:00 13:00 WBC 8.1 RBC 5.23 Hgb 15.3 H Hct 46.6 MCV 89.1 MCH 29.3 MCHC 32.8 RDW Std Deviation 39.7 RDW Coeff of Jarod 12.2 Plt Count 175 MPV 11.1 Immature Gran % (Auto) 0.200 Neut % (Auto) 61.6 Lymph % (Auto) 30.1 [place] % (Auto) 4.4 Eos % (Auto) 3.0 Baso % (Auto) 0.7 Absolute Neuts (auto) 5.0 Absolute Lymphs (auto) 2.44 Nucleated RBC % 0 Sodium 138 Potassium 4.0 Chloride 103 Carbon Dioxide 28.0 Anion Gap 7 BUN 14 Creatinine 0.93 Estim Creat Clear Calc 62.50 Est GFR (MDRD) Af Amer 87 Est GFR (MDRD) Non-Af 72 BUN/Creatinine Ratio 15.0 Glucose 109 H Calcium 10.0 Troponin I High Sens < 3 L Radiography Diagnostic Testing: Clinical Impression(s) from Imaging Studies Chest X-Ray 03/15/22 13:41 IMPRESSION: Normal x-ray examination of the chest. Electronically Signed: Gil Galvan MD at 13:58 EDT Reading Location ID and State: [facility] / [place] , Service support , EKG Initial EKG: Attestation: I personally reviewed and interpreted this EKG as follows: Comments: Sinus rate of 67, no ST changes isolated T wave version leads III, nonspecific. QTc 429. Discharge Plan Triage Chief Complaint: General Illness ED Provider: Austin Means Dx/Rx/DC Orders Clinical Impression: Headache, Chest pain, History of migraine Instructions: Self-Care for Headaches, ED Chest Pain, Uncertain Cause Prescriptions: No Action albuterol sulfate [Ventolin HFA] 90 mcg/actuation HFA aerosol inhaler 2 puff INHALATION Q4H PRN PRN (Reason: sob) Qty: 8.5 0RF diazepam [Valium] 2 mg tablet 2 mg PO QHS PRN (Reason: muscle spasm) Qty: 10 0RF tizanidine [Zanaflex] 4 mg capsule 4 mg PO Q8H PRN (Reason: muscle spasticity) Qty: 14 0RF lidocaine [Lidoderm] 5 % adhesive patch,medicated 3 patch topical DAILY PRN (Reason: pain) Qty: 15 0RF Rx Instructions: leave on most painful area for up to 12 hrs promethazine 25 mg tablet 25 mg PO TID PRN (Reason: nausea and vomiting) 7 Days Qty: 21 0RF Primary Care Provider: Brent Conde Referrals: Brent Conde MD [Primary Care Provider] - 3-5 Days Activity Restrictions/Additional Instructions: COVID-negative. Cardiac work-up negative. Follow-up with your doctor. Return if any worsening symptoms. Disposition Disposition: Home, Self Care Discharge Date/Time: 03/15/22 14:40
[2022-03-15] MEDS: Metoclopramide 10 MG/2 ML Vial IV (13:25)
[2022-03-15] MEDS: DiphenhydrAMINE 50 MG/ML Syringe 25 MG IV (13:25)
[2022-03-15] MEDS: 0.9% Normal Saline 1,000 ML 1000 ML IV (13:26)
[2022-03-15 13:29] LABS: Absolute Lymphocyte Count 2.44 X10^3/uL (0.83-4.51); Basophil# 0.06 X10^3/uL; Basophil% 0.7 % (0-1); Eosinophil# 0.24 X10^3/uL; Hematocrit 46.6 % (37-47); Hemoglobin 15.3 g/dL (12.0-15.0); Lymphocyte # 2.44 X10^3/ul (0.83-4.51); Lymphocyte % 30.1 % (19-41); Mean Corp Hgb Conc 32.8 g/dL (32-36); Mean Corpuscular Hgb 29.3 pg (27.0-32.0); Mean Corpuscular Volume 89.1 fL (81-99); Mean Platelet Vol. 11.1 fl (6.2-12.0); Monocyte# 0.36 X10^3/uL; Monocyte% 4.4 % (0-10); NRBC Flagged by Analyzer 0 % (0-5); Neutrophil # 4.99 X10^3/uL (2.7-7.7); Neutrophil % 61.6 % (47-70); Platelet Count 175 K/mm3 (150-450); RBC Distribution Width CV 12.2 % (11.6-14.6); RBC Distribution Width SD 39.7 fl (35.1-43.9); Red Blood Count 5.23 M/mm3 (4.2-5.4); White Blood Count 8.1 K/mm3 (4.4-11.0)
--- NOTE | 2022-03-15 13:41 | RAD_ITS ---
STUDY: X-RAY CHEST REASON FOR EXAM: Female, 37 years old. Chest pain TECHNIQUE: PA and lateral views of the chest. COMPARISON: Comparison is made with prior study dated 02/16/2022. FINDINGS: EKG electrodes are seen. The lungs are clear and expanded. There is no demonstrated pleural abnormality. Normal size heart. Normal mediastinum and amauri. Normal visualized pulmonary arteries. Normal visualized aortic arch and descending thoracic aorta. Normal visualized thoracic spine. Normal visualized ribs, clavicles, and shoulders. There is no demonstrated abnormality of the visualized soft tissue structures of the upper abdomen. RAD/Chest PA and Lateral IMPRESSION: Normal x-ray examination of the chest. Electronically Signed: Gil Galvan MD at 13:58 EDT ,
[2022-03-15 13:45] LABS: Anion Gap 7 (5-15); BUN 14 mg/dL (7-18); Chloride 103 mmol/L (98-107); Creatinine, Serum 0.93 mg/dL (0.55-1.02); EST Glomerular Filtration Rate 72 mL/min (>60); Est Glom Filt Rate - Afr Amer 87 mL/min (>60); Glucose 109 mg/dL (74-106); Sodium Level 138 mmol/L (136-145); Troponin-I HS < 3 pg/mL (3.0-54.0)
[2022-03-15 14:26] VITALS: BP 136/78; PULSE 76; RESP 16; O2SAT 96
== END 2022-03-15 14:40 | disposition home or self-care (01) ==
PROVIDERS: Emergency Provider Emergency Medicine; PCP Family Medicine; Visit Provider Emergency Medicine
DX: R07.9 Chest pain, unspecified (principal); F31.9 Bipolar disorder, unspecified; Z87.891 Personal history of nicotine dependence; F41.9 Anxiety disorder, unspecified; R11.0 Nausea; R51.9 Headache, unspecified
CPT/HCPCS: 71046; 80048; 84484; 85025; 87811; 93005; 96361; 96374; 96375; 99284; J7030; A4216

== ENCOUNTER 2022-06-11 21:01 | Emergency (ER) | payer MEDICAID, SELFPAY ==
[2022-06-11 21:01] VITALS: BP 114/81; PULSE 88; RESP 16; TEMP 36; BMI 35.1
--- NOTE | 2022-06-11 21:14 | EX.ED.DYSGE1 ---
HPI History of Present Illness Chief Complaint: Nausea/Vomiting Informant: patient Onset/Context/Timing Onset: Today Context: Gradual Onset Current Severity: Moderate Maximum Severity: Moderate Narrative Narrative: Patient presents secondary to headache with nausea, vomiting, body aches. She states he had a headache yesterday and had an upset stomach. Last evening after eating dinner she developed vomiting with some mild diarrhea this morning. She does not believe she had a fever, but states her son told her her forehead felt warm. Several members of her household had influenza A last week. She presents to the ER tonight since she cannot keep anything down. [facility] Medical History Anxiety Back pain Bipolar 2 disorder Bulging disc Migraine Panic attack Home Medications albuterol sulfate 90 mcg/actuation aerosol inhaler (Ventolin HFA) 2 puff inhalation Q4H PRN PRN sob #8.5 grams 11/30/21 [Rx Last Taken Unknown] diazepam 2 mg tablet (Valium) 2 mg PO QHS PRN muscle spasm #10 tabs 12/12/21 [Rx Last Taken Unknown] lidocaine 5 % topical patch (Lidoderm) 3 patch topical DAILY PRN pain #15 ea 02/05/22 [Rx Last Taken Unknown] tizanidine 4 mg capsule (Zanaflex) 4 mg PO Q8H PRN muscle spasticity #14 caps 02/05/22 [Rx Last Taken Unknown] promethazine 25 mg tablet 25 mg PO TID PRN nausea and vomiting 7 days #21 tabs 02/16/22 [Rx Last Taken Unknown] ondansetron 4 mg disintegrating tablet 4 mg PO Q8H PRN nausea and vomiting #10 tabs 06/11/22 [Rx Last Taken Unknown] Allergy/AdvReac Type Severity Reaction Status Date / Time Sulfa (Sulfonamide Allergy Rash Verified 03/15/22 12:20 Antibiotics) Social History Smoking Status: Former smoker ROS ROS ED Constitutional Constitutional ED: Denies chills or fever(s) Eyes Eyes: Denies change in vision or discharge from eye(s) ENT ENT ED: Denies discharge from eye(s), rhinorrhea or sore throat Cardiovascular Cardiovascular: Denies chest pain or palpitations Respiratory/Chest Respiratory/Chest: Denies cough or dyspnea Gastrointestinal Gastrointestinal: Reports diarrhea, nausea and vomiting Genitourinary Genitourinary ED: Denies difficulty urinating or dysuria Musculoskeletal Musculoskeletal: Reports myalgias; Denies back pain or extremity pain Integumentary Denies Abrasions or rash Neurologic Neurologic: Denies headache(s) or weakness Allergic/Immunologic Allergic/Immunologic ED: Denies lip swelling or urticaria EXAM Physical Exam Const Vital Signs: 06/11/22 21:01 06/11/22 21:01 Temperature 96.8 F L 96.8 F L Temperature Source Temporal Temporal Pulse Rate 88 88 Respiratory Rate 16 16 Blood Pressure 114/81 H 114/81 H Blood Pressure Mean 92 92 Positive well nourished and well developed General Appearance ED: well developed HEENT Reports normocephalic, head/scalp atraumatic and dry mucous membranes Mouth ED: Yes dry mucous membranes Mouth: dry mucous membranes Eyes PERRL and EOMs intact bilaterally Neck supple Chest Wall inspection of chest normal and palpation of chest normal Resp normal respiratory effort and clear to auscultation bilaterally Cardio regular rate and regular rhythm GI non-tender Auscultation: hypoactive bowel sounds Palpation: soft Back/Spine no CVA tenderness Extremity normal to inspection Neuro oriented x3 and no sensory deficits noted Sensorium / Orientation: alert Motor Exam: strength 5/5 throughout Psych mental status grossly normal Skin no rashes or lesions noted MDM MDM MDM Narrative Medical decision making narrative: Patient given Toradol, Reglan, Benadryl, IV fluids. Lab work obtained. Swab for COVID and influenza sent. Lab Data Attestation: I reviewed the patient's lab results. Labs: Laboratory Results - last 24 hr 06/11/22 06/11/22 21:30 21:30 WBC 9.0 RBC 5.30 Hgb 15.3 H Hct 46.4 MCV 87.5 MCH 28.9 MCHC 33.0 RDW Std Deviation 39.5 RDW Coeff of Jarod 12.3 Plt Count 208 MPV 10.7 Immature Gran % (Auto) 0.300 Neut % (Auto) 67.1 Lymph % (Auto) 25.5 [place] % (Auto) 4.7 Eos % (Auto) 1.8 Baso % (Auto) 0.6 Absolute Neuts (auto) 6.0 Absolute Lymphs (auto) 2.28 Nucleated RBC % 0 Sodium 136 Potassium 3.7 Chloride 103 Carbon Dioxide 29.0 Anion Gap 4 L BUN 13 Creatinine 0.89 Estim Creat Clear Calc 65.31 Est GFR (MDRD) Af Amer 92 Est GFR (MDRD) Non-Af 76 BUN/Creatinine Ratio 14.6 Glucose 117 H Calcium 9.7 Total Bilirubin 0.50 Direct Bilirubin 0.11 AST 26 ALT 63 H Alkaline Phosphatase 70 Total Protein 8.3 H Albumin 4.0 Globulin 4.3 H Treatment and Re-Evaluation Narrative: CBC was normal white count. Hemoglobin is concentrated at 15.3. Chemistry studies and LFTs unremarkable. Swab for COVID and influenza negative. On repeat evaluation headache is significantly improved. She states her nausea is starting to come back. She is given Zofran and a p.o. challenge. She will be given Zofran for home. Return instructions given. Discharge Plan Triage Chief Complaint: Nausea/Vomiting ED Provider: Coby Rhodes Dx/Rx/DC Orders Clinical Impression: Viral syndrome, Vomiting Instructions: ED Viral Syndrome (Adult), ED Vomiting (Adult) Prescriptions: New ondansetron 4 mg tablet,disintegrating 4 mg PO Q8H PRN (Reason: nausea and vomiting) Qty: 10 0RF No Action albuterol sulfate [Ventolin HFA] 90 mcg/actuation HFA aerosol inhaler 2 puff INHALATION Q4H PRN PRN (Reason: sob) Qty: 8.5 0RF diazepam [Valium] 2 mg tablet 2 mg PO QHS PRN (Reason: muscle spasm) Qty: 10 0RF tizanidine [Zanaflex] 4 mg capsule 4 mg PO Q8H PRN (Reason: muscle spasticity) Qty: 14 0RF lidocaine [Lidoderm] 5 % adhesive patch,medicated 3 patch topical DAILY PRN (Reason: pain) Qty: 15 0RF Rx Instructions: leave on most painful area for up to 12 hrs promethazine 25 mg tablet 25 mg PO TID PRN (Reason: nausea and vomiting) 7 Days Qty: 21 0RF Primary Care Provider: Brent Conde Referrals: Brent Conde MD [Primary Care Provider] - 1 Week if not improving Disposition Disposition: Home, Self Care
[2022-06-11] MEDS: 0.9% Normal Saline 1,000 ML 1000 ML IV (21:31)
[2022-06-11] MEDS: Metoclopramide 10 MG/2 ML Vial IV (21:38)
[2022-06-11] MEDS: Ketorolac 30 MG/ML Syringe IV (21:41)
[2022-06-11] MEDS: DiphenhydrAMINE 50 MG/ML Syringe 25 MG IV (21:42)
[2022-06-11 21:48] LABS: Absolute Lymphocyte Count 2.28 X10^3/uL (0.83-4.51); Basophil# 0.05 X10^3/uL; Basophil% 0.6 % (0-1); Eosinophil# 0.16 X10^3/uL; Eosinophils% 1.8 % (0-5); Hematocrit 46.4 % (37-47); Hemoglobin 15.3 g/dL (12.0-15.0); Lymphocyte # 2.28 X10^3/ul (0.83-4.51); Lymphocyte % 25.5 % (19-41); Mean Corpuscular Hgb 28.9 pg (27.0-32.0); Mean Corpuscular Volume 87.5 fL (81-99); Mean Platelet Vol. 10.7 fl (6.2-12.0); Monocyte# 0.42 X10^3/uL; Monocyte% 4.7 % (0-10); NRBC Flagged by Analyzer 0 % (0-5); Neutrophil # 6.01 X10^3/uL (2.7-7.7); Neutrophil % 67.1 % (47-70); Platelet Count 208 K/mm3 (150-450); RBC Distribution Width CV 12.3 % (11.6-14.6); RBC Distribution Width SD 39.5 fl (35.1-43.9)
[2022-06-11 22:09] LABS: AST(SGOT) 26 U/L (15-37); Alanine Aminotransfer ALT/SGPT 63 U/L (13-56); Alkaline Phosphatase 70 U/L (45-117); Anion Gap 4 (5-15); BUN 13 mg/dL (7-18); BUN/Creat Ratio 14.6 RATIO (10-20); Bilirubin, Direct 0.11 mg/dL (0.00-0.30); Calcium,Total 9.7 mg/dL (8.5-10.1); Chloride 103 mmol/L (98-107); Creatinine, Serum 0.89 mg/dL (0.55-1.02); EST Glomerular Filtration Rate 76 mL/min (>60); Est Glom Filt Rate - Afr Amer 92 mL/min (>60); Estimated Creatinine Clearance 65.31 ml/min; Globulin 4.3 g/dL (2.2-4.2); Glucose 117 mg/dL (74-106); Potassium 3.7 mmol/L (3.5-5.1); Protein, Total 8.3 g/dL (6.4-8.2); Sodium Level 136 mmol/L (136-145)
[2022-06-11] MEDS: Ondansetron ODT 4 MG Tablet PO (23:37)
== END 2022-06-11 23:40 | disposition home or self-care (01) ==
PROVIDERS: Emergency Provider Emergency Medicine; PCP Family Medicine; Visit Provider Emergency Medicine
DX: B34.9 Viral infection, unspecified (principal); F31.9 Bipolar disorder, unspecified; R11.2 Nausea with vomiting, unspecified; Z87.891 Personal history of nicotine dependence
CPT/HCPCS: 80048; 80076; 85025; 87428; 96361; 96374; 96375; 99284; J7030

== ENCOUNTER 2024-03-26 05:47 | Day surgery (SDC) | payer MEDICARE, MEDICAID, SELFPAY ==
[2024-03-26] VITALS (9 sets, daily range): BP systolic 97–116; BP diastolic 52–64; PULSE 67–84; RESP 16–18; TEMP 36.4–36.8; O2SAT 96–100; BMI 32.5
--- OUTSIDE RECORDS SUMMARY | 2024-03-26 06:01 | XMS RPT_ITS | CCD ---
Author Organization [facility] Care Team Providers Care Napper Tender Name Role Phone Guille Conde MD Primary Care Provider GUILLE CONDE Primary Care Unavailab KINSEY Ghotra Referring Unavailable MEKA CHAUHAN Attending Unavailable GUILLE CONDE Primary Care Unavailab GUILLE Boo Primary Care Unavailab JOCY Hicks Referring Unavailable GUILLE CONDE Primary Care Unavailab KINSEY Ghotra Attending Unavailable GUILLE CONDE Primary Care Unavailab KINSEY Ghotra Attending Unavailable GUILLE CONDE Primary Care Unavailab KINSEY Ghotra Referring Unavailable GUILLE CONDE Primary Care Unavailab KINSEY Ghotra Attending Unavailable GUILLE CONDE Primary Care Unavailab KINSEY Ghotra Referring Unavailable GUILLE CONDE Primary Care Unavailab KINSEY Ghotra Attending Unavailable GUILLE CONDE Primary Care Unavailab KINSEY Ghotra Referring Unavailable GUILLE CONDE Attending Unavailab GUILLE Boo Primary Care Unavailab le SELF Referring Unavailable GUILLE CONDE Primary Care Unavailab KINSEY Ghotra Attending Unavailable GUILLE CONDE Primary Care Unavailab KINSEY Ghotra Attending Unavailable GUILLE CONDE Primary Care Unavailab GUILLE Boo Primary Care Unavailab KINSEY Ghotra Attending Unavailable GUILLE CONDE Primary Care Unavailab GUILLE Boo Primary Care Unavailab KINSEY Ghotra Attending Unavailable GUILLE CONDE Referring Unavailab GUILLE Boo Primary Care Unavailab GUILLE Boo Primary Care Unavailab crystal CRUZJOCY DONNELLY Referring Unavailable GUILLE CONDE Primary Care Unavailab KINSEY Ghotra Attending Unavailable GUILLE CONDE Primary Care UnavailKINSEY Anderson Referring Unavailable Allergies Allergy Classification Reported Allergen(s) Allergy Type Date of Onset Reaction(s) Facility Cats (2 sources) Cat Animal Allergy (Dander) 9 [facility] dog hair extract (2 sources) dog hair extract Drug Allergy 9 Anaphylaxis [facility] Sulfonamides (antibiotic) (2 sources) Sulfonamides (Antibiotic) Drug Allergy 9 [facility] (20 sources) Cat; Translations: [CATS] Propensity to adverse reactions [facility] Work Phone: (20 sources) dog hair extract; Translations: [DOG HAIR] Drug Allergy 9 Anaphylaxis [facility] Work Phone: (20 sources) Sulfonamides (Antibiotic); Translations: [SULFA (SULFONAMIDE ANTIBIOTICS)] Drug Allergy 9 [facility] Medications Current Medications Medication Drug Class(es) Dates Sig (Normalized) Sig (Original) [id number] 200 actuat albuterol 0.09 mg/actuat metered dose inhaler (20 sources) beta2-Adrenergic Agonist Start: 02-29-2024 take 2 puff(s) by inhalation every four hours as needed for wheezing albuterol HFA (PROVENTIL HFA, VENTOLIN HFA) 90 mcg/actuation inhaler Inhale 2 Puffs as instructed every 4 hours as needed for wheezing/shortnes s of breath. 1 Each 02/29/2024 Active Start: 11-24-2023 End: 02-29-2024 take 2 puff(s) by inhalation every four hours as needed for wheezing albuterol HFA (PROVENTIL HFA, VENTOLIN HFA) 90 mcg/actuation inhaler Inhale 2 Puffs as instructed every 4 hours as needed for wheezing/shortness of breath. 8 g 11/24/2023 02/29/2024 Discontinued (Course of therapy completed) Start: 07-21-2021 End: 02-29-2024 take 1-2 puff(s) by inhalation every four hours as needed albuterol HFA (PROAIR HFA) 90 mcg/actuation inhaler Indications: Sinobronchitis Inhale 1-2 Puffs as instructed every 4 hours as needed. 1 Inhaler 07/21/2021 02/29/2024 Discontinued (Course of therapy completed) Comment on above: Inhale 1-2 Puffs as instructed every 4 hours as needed. benzonatate 100 mg oral capsule (1 source) Non-narcotic Antitussive Start: 02-29-20 take 1 capsule by mouth every eight hours as needed benzonatate (TESSALON PERLES) 100 mg capsule Take 1 capsule by mouth three times a day as needed for cough. 21 capsule 02/29/2024 Active diazePAM 5 mg oral tablet (13 sources) Benzodiazepine Start: 10-21-19 End: 11-20-19 take 1 tablet by mouth once daily as needed for anxiety diazePAM (VALIUM) 5 mg tablet Indications: ZAIRE (generalized anxiety disorder) Take 1 tablet by mouth once daily as needed for anxiety for up to 30 days. 30 tablet 0 10/21/2023 11/20/2023 Active Start: 09-16-2023 End: 10-16-2023 take 1 tablet by mouth once daily as needed for anxiety diazePAM (VALIUM) 5 mg tablet Indications: ZAIRE (generalized anxiety disorder) Take 1 tablet by mouth once daily as needed for anxiety for up to 30 days. 30 tablet 0 09/16/2023 10/16/2023 Active Start: 07-22-2023 End: 08-21-2023 take 1 tablet by mouth once daily as needed for anxiety diazePAM (VALIUM) 5 mg tablet Indications: ZAIRE (generalized anxiety disorder) Take 1 tablet by mouth once daily as needed for anxiety for up to 30 days. 30 tablet 0 07/22/2023 08/21/2023 Start: 04-04-2023 End: 05-04-2023 take 1 tablet by mouth once daily as needed for anxiety diazePAM (VALIUM) 5 mg tablet Indications: ZAIRE (generalized anxiety disorder) Take 1 tablet by mouth once daily as needed for anxiety for up to 30 days. 30 tablet 0 04/04/2023 05/04/2023 Active Start: 08-13-2022 End: 09-12-2022 take 1 tablet by mouth once daily as needed for anxiety diazePAM (VALIUM) 5 mg tablet Indications: ZAIRE (generalized anxiety disorder) Take 1 tablet by mouth once daily as needed for anxiety for up to 30 days. 30 tablet 1 08/13/2022 09/12/2022 Active Start: 06-30-2022 End: 07-30-2022 take 1 tablet by mouth once daily as needed for anxiety diazePAM (VALIUM) 5 mg tablet Indications: ZAIRE (generalized anxiety disorder) Take 1 tablet by mouth once daily as needed for anxiety for up to 30 days. 30 tablet 1 06/30/2022 07/30/2022 Active Start: 04-28-2022 End: 05-08-2022 take 1 tablet by mouth once daily as needed for anxiety diazePAM (VALIUM) 2 mg tablet Indications: ZAIRE (generalized anxiety disorder) Take 1 tablet by mouth once daily as needed for anxiety for up to 10 days. 30 tablet 0 04/28/2022 05/08/2022 Active Start: 12-12-2021 End: 04-05-2022 take 1 tablet by mouth once daily as needed for anxiety diazePAM (VALIUM) 2 mg tablet Indications: ZAIRE (generalized anxiety disorder) Take 1 tablet by mouth once daily as needed for anxiety for up to 10 days. 30 tablet 0 03/26/2022 04/05/2022 Active Comment on above: Take 1 tablet by riri th once daily as needed for anxiety for up to 10 days. Take by mouth. Take 1 tablet by riri th once daily as needed for anxiety for up to 30 days. dicyclomine hydrochloride 10 mg oral capsule (20 sources) Anticholinergic Start: 02-02-20 dicyclomine (BENTYL) 10 mg capsule TAKE 1 CAPSULE THREE TIMES DAILY BEFORE MEALS 02/01/2022 Active Comment on above: TAKE 1 CAPSULE THREE TIMES DAILY BEFORE MEALS gabapentin 300 mg oral capsule (20 sources) Anti-epileptic Agent Start: 01-09-20 End: 03-09-20 take 1 capsule by mouth twice daily gabapentin (NEURONTIN) 300 mg capsule Take 1 capsule by mouth two times a day for 60 days. 60 capsule 1 2024 03/09/2024 Active Start: 10-21-2023 End: 2024 take 1 capsule by mouth once daily in the morning, then take 2 capsules by mouth once daily at bedtime gabapentin (NEURONTIN) 300 mg capsule Take 1 capsule by mouth every morning AND 2 capsules daily at bedtime. Do all this for 30 days. 90 capsule 10/21/2023 11/28/2023 Discontinued Start: 08-13-2022 End: 11-15-2023 take 1 capsule by mouth three times daily gabapentin (NEURONTIN) 300 mg capsule Take 1 capsule by mouth three times a day for 60 days. 90 capsule 0 09/16/2023 10/21/2023 Discontinued Start: 06-30-2022 End: 08-13-2022 take 1 capsule by mouth twice daily gabapentin (NEURONTIN) 300 mg capsule Take 1 capsule by mouth twice daily for 30 days. 60 capsule 2 06/30/2022 08/13/2022 Discontinued Start: 02-15-2022 End: 05-28-2022 take 1 capsule by mouth twice daily gabapentin (NEURONTIN) 300 mg capsule Take 1 capsule by mouth twice daily for 30 days. 60 capsule 1 04/28/2022 05/28/2022 Active Start: 11-27-2021 End: 12-27-2021 take 1 capsule by mouth twice daily gabapentin (NEURONTIN) 300 mg capsule Take 1 capsule by mouth twice daily for 30 days. 60 capsule 1 11/27/2021 12/27/2021 Active Comment on above: Take 1 capsule by mo [facility] twice daily for 30 days. Take 1 capsule by mo ut three times daily for 30 days. Take 1 capsule by mo ut three times daily for 60 days. Take 1 capsule by mo ut three times a day for 60 days. Inhalational Spacing Device (5 sources) Start: 02-29-2024 End: 02-29-2024 Inhalational Spacing Device 1 Device one time only for 1 dose. 1 Each 02/29/2024 02/29/2024 Active Start: 11-24-2023 End: 11-24-2023 Inhalational Spacing Device 1 Device one time only for 1 dose. 1 Each 11/24/2023 11/24/2023 Start: 11-24-2023 End: 11-24-2023 Inhalational Spacing Device 1 Device one time only for 1 dose. 1 Each 0 11/24/2023 11/24/2023 Active lurasidone hydrochloride 40 mg oral tablet (20 sources) Atypical Antipsychotic Start: 10-21-2023 End: 03-09-2024 take 1 tablet by mouth once daily at mealtime lurasidone (LATUDA) 40 mg tablet Take 1 tablet by mouth daily with food. Take with atleast 300 calories. 30 tablet 1 2024 03/09/2024 Active Start: 10-21-2023 End: 11-28-2023 take 1 tablet by mouth once daily at mealtime lurasidone (LATUDA) 20 mg tablet Take 1 tablet by mouth daily with food for 7 days. Take with atleast 300 calories a day. 7 tablet 10/21/2023 11/28/2023 Discontinued (Course of therapy completed) ondansetron 4 mg disintegrating oral tablet (2 sources) Serotonin-3 Receptor Antagonist Start: 11-27-2021 End: 12-27-2021 take 1 tablet by mouth every twelve hours as needed ondansetron orally disintegrating (ZOFRAN ODT) 4 mg disintegrating tablet Take 1 tablet by mouth every 12 hours as needed for nausea/vomiting. 60 tablet 0 11/27/2021 12/27/2021 Active Comment on above: Take 1 tablet by riri th every 12 hours as needed for nausea/vomiting. prazosin 1 mg oral capsule (20 sources) alpha-Adrenergic Leonard Start: 11-28-2023 End: 03-09-2024 take 1 capsule by mouth once daily at bedtime prazosin (MINIPRESS) 1 mg cap Take 1 capsule by mouth daily at bedtime. 30 capsule 1 2024 03/09/2024 Active Start: 10-21-2023 End: 11-20-2023 take 1 capsule by mouth once daily at bedtime prazosin (MINIPRESS) 1 mg cap Take 1 capsule by mouth daily at bedtime. 30 capsule 0 10/21/2023 11/20/2023 Active Start: 07-22-2023 End: 10-16-2023 take 1 capsule by mouth once daily at bedtime prazosin (MINIPRESS) 1 mg cap Take 1 capsule by mouth daily at bedtime. 30 capsule 0 09/16/2023 10/16/2023 Active Start: 04-04-2023 End: 05-04-2023 take 1 capsule by mouth once daily at bedtime prazosin (MINIPRESS) 1 mg cap Take 1 capsule by mouth daily at bedtime. 30 capsule 0 04/04/2023 05/04/2023 Active Start: 02-28-2023 End: 03-30-2023 take 1 capsule by mouth once daily at bedtime prazosin (MINIPRESS) 1 mg cap Take 1 capsule by mouth daily at bedtime. 30 capsule 0 02/28/2023 03/30/2023 Active Comment on above: Take 1 capsule by mo [facility] daily at bedtime. predniSONE 10 mg oral tablet (12 sources) Start: 11-24-19 24 predniSONE (DELTASONE) 10 mg tablet Take 4 tabs daily for 3 days, then 2 tabs daily for 3 days, then 1 tab daily for 3 days with food. 21 tablet 11/24/2023 Active 24 hr venlafaxine 75 mg extended release oral capsule (5 sources) Serotonin and Norepinephrine Reuptake Inhibitor Start: 10-17-19 22 End: 12-28-19 22 take 1 capsule by mouth once daily at mealtime venlafaxine ER (EFFEXOR XR) 75 mg 24 hr capsule Take 1 capsule by mouth daily with food. 30 capsule 1 11/27/2021 12/27/2021 Active Comment on above: Take 1 capsule by [facility] daily with food. Completed/Discontinued Medications Medication Drug Class(es) Dates Sig (Normalized) Sig (Original) acetaminophen 325 mg / HYDROcodone bitartrate 5 mg oral tablet (12 sources) Opioid Agonist Start: 08-15-2021 End: 04-04-2023 HYDROcodone-acetami nophen (NORCO) 5-325 mg per tablet EVERY 6 HOURS 0 08/15/2021 04/04/2023 Discontinued (Discontinued by Patient) Comment on above: EVERY 6 HOURS amoxicillin 875 mg / clavulanate 125 mg oral tablet (5 sources) Penicillin-class Antibacterial Start: 11-24-2023 End: 12-01-2023 take 1 tablet by mouth twice daily amoxicillin-clavula rich potassium (AUGMENTIN) 875-125 mg per tablet Take 1 tablet by mouth two times a day for 7 days. 14 tablet 11/24/2023 12/01/2023 brompheniramine maleate 0.4 mg/ml / dextromethorphan hydrobromide 2 mg/ml / pseudoephedrine hydrochloride 6 mg/ml oral solution (5 sources) alpha-Adrenergic Agonist, Uncompetitive M-ucebyd-G-asparta te Receptor Antagonist, Sigma-1 Agonist Start: 11-24-2023 End: 11-28-2023 take 5 mL by mouth every six hours as needed Brompheniramine-Pse udoeph-DM (BROMFED DM) 2-30-10 mg/5 mL syrup Take 5 mL by mouth four times a day as needed. 118 mL 11/24/2023 11/28/2023 Discontinued (Cost of medication) lamoTRIgine 25 mg oral tablet (2 sources) Mood Stabilizer, Anti-epileptic Agent Start: 10-19-2021 End: 11-27-2021 take 1 tablet by mouth once daily lamoTRIgine (LAMICTAL) 25 mg tablet Take 1 tablet by mouth once daily. 0 10/19/2021 11/27/2021 Discontinued (Lack of Efficacy) Comment on above: Take 1 tablet by riri th once daily. lidocaine 0.05 mg/mg medicated patch (10 sources) Antiarrhythmic, Amide Local Anesthetic Start: 02-05-2022 End: 04-04-2023 lidocaine (LIDODERM) 5 % Apply to affected area. 0 02/05/2022 04/04/2023 Discontinued (Course of therapy completed) Comment on above: Apply to affected ar ea. meclizine hydrochloride 25 mg oral tablet (10 sources) Antiemetic Start: 12-12-2021 End: 04-04-2023 meclizine (ANTIVERT) 25 mg tab Take by mouth. 0 12/12/2021 04/04/2023 Discontinued (Discontinued by Patient) Comment on above: Take by mouth. metoclopramide 10 mg oral tablet (2 sources) Dopamine-2 Receptor Antagonist Start: 02-01-2022 End: 04-28-2022 take 1 tablet by mouth four times daily as needed for headache metoclopramide HCl (REGLAN) 10 mg tablet TAKE 1 TABLET BY MOUTH FOUR TIMES DAILY NEEDED FOR HEADACHE 0 02/01/2022 04/28/2022 Discontinued (Course of therapy completed) Comment on above: TAKE 1 TABLET BY RIRI TH FOUR TIMES DAILY NEEDED FOR HEADACHE OLANZapine 5 mg oral tablet (20 sources) Atypical Antipsychotic Start: 10-21-2023 End: 11-28-2023 OLANZapine (ZYPREXA) 5 mg tablet Take 1 tablet by mouth daily at bedtime for 4 days, THEN 0.5 tablets daily at bedtime for 4 days. Discontinue after 8 days.. 30 tablet 10/21/2023 11/28/2023 Discontinued (Side Effects) Start: 10-14-2023 End: 12-13-2023 take 0.5 tablet by mouth once daily at bedtime OLANZapine (ZYPREXA) 15 mg tablet Take 0.5 tablets by mouth daily at bedtime. 30 tablet 0 10/14/2023 10/21/2023 Discontinued Start: 05-28-2022 End: 11-15-2023 take 1 tablet by mouth once daily at bedtime OLANZapine (ZYPREXA) 15 mg tablet Take 1 tablet by mouth daily at bedtime. 30 tablet 0 09/16/2023 10/14/2023 Discontinued (Adjust Sig - Block E-Cancel) Start: 04-28-2022 End: 05-28-2022 take 1 tablet by mouth once daily at bedtime OLANZapine (ZYPREXA) 10 mg tablet Take 1 tablet by mouth daily at bedtime. 30 tablet 1 04/28/2022 05/28/2022 Active Start: 03-26-2022 End: 04-28-2022 take 1 tablet by mouth once daily at bedtime OLANZapine (ZYPREXA) 5 mg tablet Take 1 tablet by mouth daily at bedtime. 30 tablet 1 03/26/2022 04/28/2022 Discontinued Start: 02-15-2022 End: 03-26-2022 take 1 tablet by mouth once daily at bedtime OLANZapine (ZYPREXA) 2.5 mg tablet Take 1 tablet by mouth daily at bedtime. 30 tablet 1 02/15/2022 03/26/2022 Discontinued Start: 11-27-2021 End: 01-26-2022 take 1 tablet by mouth once daily at bedtime OLANZapine (ZYPREXA) 5 mg tablet Take 1 tablet by mouth daily at bedtime. 30 tablet 1 11/27/2021 01/26/2022 Active Start: 10-16-2021 End: 11-27-2021 take 1 tablet by mouth once daily at bedtime OLANZapine (ZYPREXA) 2.5 mg tablet Take 1 tablet by mouth daily at bedtime. 30 tablet 1 10/16/2021 11/27/2021 Discontinued Comment on above: Take 1 tablet by riri th daily at bedtime. SUMAtriptan 50 mg oral tablet (14 sources) Serotonin-1b and Serotonin-1d Receptor Agonist Start: End: SUMAtriptan (IMITREX) 50 mg tablet Indications: Migraine without aura and without status migrainosus, not intractable Take 1 tablet by mouth as needed for Migraine Headache (see administration instructions). 12 tablet 0 03/31/2020 04/04/2023 Discontinued (Discontinued by Patient) Comment on above: Take 1 tablet by riri th as needed for Migraine Headache (see administration instructions). tiZANidine 4 mg oral capsule (8 sources) Central alpha-2 Adrenergic Agonist Start: End: tiZANidine HCl (ZANAFLEX) 4 mg capsule Take by mouth. 0 02/05/2022 02/28/2023 Discontinued (Course of therapy completed) Comment on above: Take by mouth. triamcinolone acetonide 0.055 mg/actuat metered dose nasal spray (14 sources) Corticosteroid Start: End: take 2 spray(s) by inhalation once daily triamcinolone acetonide (NASACORT AQ) 55 mcg nasal inhaler Indications: Sinobronchitis Use 2 Sprays in the nose once daily. 16.9 mL 0 07/21/2021 04/04/2023 Discontinued (Course of therapy completed) Comment on above: Use 2 Sprays in the nose once daily. 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)] Onset: 10-21-2023 Chronic Diseases of mouth; excluding dental (1 source) Painful mouth; Translations: [Other lesions of oral mucosa] Episodic Disorders of lipid metabolism (4 sources) Increased lipid; Translations: [Hyperlipidemia, unspecified] Onset: 01-12-2024 01-11-2024 Chronic Malaise and fatigue (1 source) Malaise and fatigue; Translations: [Other malaise] 04-04-2023 Episodic Miscellaneous mental health disorders (4 sources) Dream anxiety disorder; 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] Onset: 07-22-2023 03-03-2023 Chronic Miscellaneous mental health disorders (1 source) Other symptoms and signs involving emotional state; Translations: [Anxiety about health] Onset: 03-12-2024 Episodic Mood disorders (20 sources) Depressive disorder; Translations: [Depression] Onset: 10-28-2009 Resolved: 06-06-2012 11-06-2013 Chronic Other aftercare (4 sources) Patient encounter status; Translations: [Other longterm (current) drug therapy] Episodic Other ear and sense organ disorders (2 sources) Lesion of external ear; Translations: [Other specified disorders of left external ear] 01-18-2024 Episodic Other ear and sense organ disorders (1 source) Other specified disorders of left external ear; Translations: [Nodule of external ear, left] Onset: 01-18-2024 Episodic Other liver diseases (3 sources) Elevated liver enzymes level; Translations: [Abnormal levels of other serum enzymes] 10-21-2023 Episodic Other lower respiratory disease (1 source) Cough; Translations: [Acute cough] 11-24-2023 Episodic Other nutritional; endocrine; and metabolic disorders (3 sources) Metabolic syndrome X; Translations: [Metabolic syndrome] 10-21-2023 Chronic Other nutritional; endocrine; and metabolic disorders (1 source) Metabolic syndrome; Translations: [Metabolic syndrome] Onset: 10-21-2023 Chronic Other skin disorders (1 source) Loss of hair; Translations: [Nonscarring hair loss, unspecified] 09-05-2023 Episodic Other upper respiratory infections (2 sources) Acute upper respiratory infection; Translations: [Acute upper respiratory infection, unspecified] 11-24-2023 Episodic Otitis media and related conditions (1 source) Acute right otitis media; Translations: [Otitis media, unspecified, right ear] 11-24-2023 Episodic Residual codes; unclassified (1 source) Treatment not available; Translations: [Procedure and treatment not carried out for other reasons] Episodic Residual codes; unclassified (1 source) Left before being seen; Translations: [Procedure and treatment not carried out due to patient leaving prior to being seen by health care provider] Episodic Residual codes; unclassified (2 sources) Flushing; Translations: [Flushing] 04-04-2023 Episodic Residual codes; unclassified (1 source) Nicotine user; Translations: [Tobacco use] 07-22-2023 Episodic Thyroid disorders (20 sources) Goiter; Translations: [Nontoxic goiter, unspecified] Onset: 03-04-2015 03-04-2015 Chronic Unclassified (3 sources) APPOINTMENT CANCELLED Unclassified (1 source) NO SHOW Unclassified (1 source) Acute cough; Translations: [Acute cough] Onset: 11-24-2023 Past or Other Problems Problem Classification Problem Date Documented Date Episodic/Chronic Allergic reactions (20 sources) Eczema; Translations: [Dermatitis, unspecified] Onset: 06-30-2010 Resolved: 06-06-2012 06-06-2012 Episodic Anxiety disorders (4 sources) Feeling irritable; Translations: [Irritability and anger] Onset: 09-05-2023 04-04-2023 Episodic Contraceptive and procreative management (16 sources) Intrauterine contraceptive device in situ; Translations: [Presence of (intrauterine) contraceptive device] Onset: 03-29-2013 Resolved: 08-23-2017 08-23-2017 Episodic Genitourinary symptoms and ill-defined conditions (16 sources) History of recurrent urinary tract infection; Translations: [Personal history of urinary (tract) infections] Onset: 05-25-2012 Resolved: 06-06-2012 06-15-2021 Episodic Immunizations and screening for infectious disease (16 sources) Immunization due; Translations: [Encounter for immunization] Onset: 05-25-2012 Resolved: 02-22-2013 06-15-2021 Episodic Nonmalignant breast conditions (20 sources) Galactorrhea not associated with childbirth; Translations: [Galactorrhea not associated with childbirth] Onset: 11-29-2008 Resolved: 10-10-2009 10-10-2009 Episodic Other aftercare (1 source) Other life skills educator (current) drug therapy; Translations: [Encounter for long-term (current) use of medications] Onset: 10-13-2023 Episodic Other complications of (16 sources) Poor growth affecting management; Translations: [Maternal care for other known or suspected poor growth, unspecified trimester, not applicable or unspecified] Onset: 08-20-2009 Resolved: 10-10-2009 10-10-2009 Episodic Other complications of (16 sources) Supervision of with other poor reproductive or obstetric history, unspecified trimester; Translations: [ with other poor obstetric history] Onset: 05-25-2012 Resolved: 02-22-2013 06-15-2021 Episodic Other complications of (16 sources) History of hemorrhage; Translations: [Supervision of with other poor reproductive or obstetric history, unspecified trimester] Onset: 05-25-2012 Resolved: 02-22-2013 06-15-2021 Episodic Other complications of (11 sources) Nausea and vomiting; Translations: [Vomiting of , unspecified] Onset: 05-25-2012 Resolved: 02-22-2013 06-15-2021 Episodic Other complications of (16 sources) RhD negative; Translations: [Other specified related conditions, unspecified trimester] Onset: 05-26-2012 Resolved: 02-22-2013 02-22-2013 Episodic Other complications of (16 sources) High risk ; Translations: [Supervision of high risk , unspecified, unspecified trimester] Onset: 06-06-2012 Resolved: 02-22-2013 06-15-2021 Episodic Other complications of (5 sources) Vomiting of , unspecified; Translations: [Unspecified vomiting of , unspecified as to episode of care or not applicable] Onset: 05-25-2012 Resolved: 02-22-2013 06-15-2021 Episodic Other inflammatory condition of skin (16 sources) Pruritus, unspecified; Translations: [Unspecified pruritic disorder] Onset: 06-30-2010 Resolved: 06-06-2012 06-06-2012 Episodic Other liver diseases (1 source) Abnormal levels of other serum enzymes; Translations: [Elevated liver enzymes] Onset: 10-21-2023 Episodic Other lower respiratory disease (16 sources) H/O: asthma; Translations: [Personal history of other diseases of the respiratory system] Onset: 05-25-2012 Resolved: 02-22-2013 06-15-2021 Episodic Other skin disorders (18 sources) Acne; Translations: [Other acne] Onset: 06-30-2010 Resolved: 06-06-2012 04-04-2023 Episodic Other skin disorders (16 sources) Folliculitis; Translations: [Follicular disorder, unspecified] Onset: 06-30-2010 Resolved: 06-06-2012 06-06-2012 Episodic Other skin disorders (1 source) Nonscarring hair loss, unspecified; Translations: [Hair thinning] Onset: 10-13-2023 Episodic Other skin disorders (1 source) Other acne; Translations: [Other acne] Onset: 09-05-2023 Episodic Residual codes; unclassified (20 sources) Tobacco use and exposure - finding; Translations: [Tobacco use] Onset: 03-29-2013 03-29-2013 Episodic Residual codes; unclassified (1 source) Flushing; Translations: [Hot flashes] Onset: 09-05-2023 Episodic Residual codes; unclassified (1 source) Tobacco use; Translations: [Current nicotine use] Onset: 07-22-2023 Episodic Screening and history of mental health and substance abuse codes (16 sources) H/O: depression; Translations: [Personal history of other mental and behavioral disorders] Onset: 05-25-2012 Resolved: 02-22-2013 06-15-2021 Episodic Spondylosis; intervertebral disc disorders; other back problems (20 sources) Thoracic and lumbosacral neuritis; Translations: [Thoracic or lumbosacral neuritis or radiculitis, unspecified] Onset: 05-29-2014 05-29-2014 Episodic Substance-related disorders (16 sources) Tobacco user; Translations: [Nicotine dependence, unspecified, uncomplicated] Onset: 08-06-2008 Resolved: 06-06-2012 06-06-2012 Chronic Results Test Name Value Interpretation Reference Range Facility [facility] 02-29-2024 CNOV Office Visit (UCWSTR ) -- KRISTEL CHILEL ([id number]) 1985 F CHT Date Time Provider Department 02/29/24 9:45 AM [facility] During your visit today, we recorded the following information about you: Temperature Pulse Respiration Blood pressure 98.8 degrees 116/minute 18/minute 118/80 Weight 80.2 kg Best Alvarez APRN.CNP 02/29/2024 10:05 AM Signed Treatment for Viral Upper Respiratory Tract Infections Your body will kill off the virus by itself. Additionally, you can prime your body's immune system. This may help you get better more quickly. Drink lots of fluids - at least one gallon of non-caffeinated liquids per day Make sure you are eating well Get plenty of rest - at least 8 hours of sleep per night for adults and more for children We do not have any medications that kill off these viruses. Antibiotics are used to treat bacterial infections; however, they are not active against viral infections. There are some things that might help you feel better, though. Vaporizers, humidifiers, hot showers, and hot fluids help open respiratory and sinus passages Sudafed is a safe and effective decongestant [place] may offer relief of nasal and head congestion Shai's Vapor Rub placed on a hot towel and draped over the head may relieve congestion Tylenol and Advil help control fevers and headaches Salt water gargles help relieve sore throats Chloraceptic spray or throat lozenges may also help relieve sore throat symptoms Robitussin DM will help loosen up secretions and also provide relief from a cough Occasionally, viral infections turn into something more serious. You should see your doctor or return to the Urgent Care if: You have fevers for longer than five days You have fevers above 102 degrees You are still sick after 10 days You have shortness of breath or wheezing After several days you are getting worse rather than better Best Alvarez APRN.CNP 02/29/2024 10:17 AM Signed Patient presents with: Cough: congestion, fatigue, sore throat and dizziness x 2 days SUBJECTIVE: Kristel Chilel is a 39 year old year old female who presents for the past 2 days with symptoms that are:gradually worsening. Risk factors: none Social History Tobacco Use Smoking status: Every Day Current packs/day: 1.00 Average packs/day: 1 pack/day for 16.0 years (16.0 ttl pk-yrs) Types: Cigarettes Smokeless tobacco: Never Substance Use Topics Alcohol use: Yes Comment: occasionally,NOT WHILE Drug use: No PAST MEDICAL HISTORY 2001: Abnormal glandular Papanicolaou smear of cervix Comment: Abn. Pap smear (cervix),ASCUS No date: Anxiety No date: Bulging disc Comment: L5 2001: Chlamydia No date: Galactorrhea not associated with childbirth 03/04/2015: Goiter No date: Headache No date: History of migraine No date: Mastodynia No date: Nerve damage Comment: right leg 2001: hemorrhage No date: RECURRENT UTI Comment: WITH PREGNANCIES 05/26/2012: Rh negative state in antepartum period No date: Tobacco use disorder 02/29/24 0954 BP: 118/80 Pulse: 116 Resp: 18 Temp: 37.1 ?C (98.8 ?F) SpO2: 98% Weight: 80.2 kg (176 lb 12.9 oz) ALLERGIES Allergen Reactions Cats SNEEZING,WATERY EYES Dog Hair Anaphylaxis SNEEZING, WATERY EYES Sulfa (Sulfonamide * Hives Medications: gabapentin (NEURONTIN) 300 mg capsule Take 1 capsule by mouth two times a day for 60 days. lurasidone (LATUDA) 40 mg tablet Take 1 tablet by mouth daily with food. Take with atleast 300 calories. prazosin (MINIPRESS) 1 mg cap Take 1 capsule by mouth daily at bedtime. dicyclomine (BENTYL) 10 mg capsule TAKE 1 CAPSULE THREE TIMES DAILY BEFORE MEALS albuterol HFA (PROVENTIL HFA, VENTOLIN HFA) 90 mcg/actuation inhaler Inhale 2 Puffs as instructed every 4 hours as needed for wheezing/shortness of breath. Inhalational Spacing Device 1 Device one time only for 1 dose. benzonatate (TESSALON PERLES) 100 mg capsule Take 1 capsule by mouth three times a day as needed for cough. predniSONE (DELTASONE) 10 mg tablet Take 4 tabs daily for 3 days, then 2 tabs daily for 3 days, then 1 tab daily for 3 days with food. (Patient not taking: Reported on 02/29/2024) Review of Systems Constitutional: Positive for chills. Negative for fever and malaise/fatigue. HENT: Positive for congestion and sore throat. Negative for ear pain. Eyes: Negative for discharge and redness. Respiratory: Positive for cough and wheezing. Negative for sputum production and shortness of breath. Gastrointestinal: Positive for nausea. Negative for diarrhea and vomiting. Neurological: Positive for dizziness and headaches. Physical Exam Vitals and nursing note reviewed. Constitutional: General: She is not in acute distress. Appearance: Normal appearance. She is not ill-appearing or toxic-appearing. (more content not included)... Normal [facility] COVID AND INFLUENZA A/B AND RSV PCR, ROUTINEon 02-29-2024 SARS-CoV-2 (COVID-19) RNA NICO+probe Ql (Unsp spec) SARS-COV-2 (AGENT OF COVID-19) RNA: Not detected INFLUENZA A RNA: Not detected INFLUENZA B RNA: Not detected RESPIRATORY SYNCYTIAL VIRUS (RSV) RNA: Not detected Normal [facility] Comment on above: Performed By: #### C VFLRS #### [facility] CLIA [id number] [address] [place] [address] OF [place] CNPNon 01-23-2024 [facility] -- KRISTEL CHILEL ([id number]) 1985 F T Date Time Provider Department 01/23/24 GUILLE CONDE During your visit today, we recorded the following information about you: Kristen Atkins RN 01/23/2024 8:46 AM Signed ----- Message from Guille Conde MD sent at 01/23/2024 8:02 AM EDT ----- US behind left ear consistent with a cyst. Recommend f/u with ENT for removal. Kristen Atkins RN 01/23/2024 8:48 AM Signed Patient notified of results and provider's instructions. Patient verbalizes understanding. Patient requesting referral to be faxed to [facility]. Demographics, office note, US results, and referral faxed to [facility] as requested by patient. Kristen Atkins RN Allergies As of Date: 01/23/2024 Noted Allergy Reaction CATS 01/27/2009 Comments: SNEEZING,WATERY EYES DOG HAIR 01/27/2009 10 - Anaphylaxis Comments: SNEEZING, WATERY EYES SULFA (SULFONAMIDE ANTIBIOTICS) 06/03/2009 4 - Hives Date Reviewed: 01/18/2024 Reviewed by: Christin Cruz LPN - Fully Assessed Reason for Visit: Results [95] Prescriptions as of 01/23/2024 - gabapentin (NEURONTIN) 300 mg capsule Take 1 capsule by mouth two times a day for 60 days. - lurasidone (LATUDA) 40 mg tablet Take 1 tablet by mouth daily with food. Take with atleast 300 calories. - prazosin (MINIPRESS) 1 mg cap Take 1 capsule by mouth daily at bedtime. - albuterol HFA (PROVENTIL HFA, VENTOLIN HFA) 90 mcg/actuation inhaler Inhale 2 Puffs as instructed every 4 hours as needed for wheezing/shortness of breath. - predniSONE (DELTASONE) 10 mg tablet Take 4 tabs daily for 3 days, then 2 tabs daily for 3 days, then 1 tab daily for 3 days with food. - dicyclomine (BENTYL) 10 mg capsule TAKE 1 CAPSULE THREE TIMES DAILY BEFORE MEALS - albuterol HFA (PROAIR HFA) 90 mcg/actuation inhaler Inhale 1-2 Puffs as instructed every 4 hours as needed. Problem List As Of Date 01/23/2024 Noted Resolved Tobacco use disorder [F17.200] 08/06/2008 06/06/2012 Galactorrhea not Associated with Childbirth [N6*11/29/2008 10/10/2009 Mastodynia [N64.4] 11/29/2008 10/10/2009 Poor Grth-Antepart [O36.5990] 08/20/2009 10/10/2009 DEPRESSION [F32.89] 10/28/2009 06/06/2012 Routine general medical examination at [facility]*02/19/2010 06/06/2012 Class: Chronic Routine gynecological examination [Z01.419] 02/19/2010 06/06/2012 Class: Chronic Other acne [L70.8] 06/30/2010 06/06/2012 Folliculitis [L73.9] 06/30/2010 06/06/2012 Pruritus [L29.9] 06/30/2010 06/06/2012 Eczematous dermatitis [L30.9] 06/30/2010 06/06/2012 Acne Urticata [L50.9] 06/30/2010 06/06/2012 Prior complicated by IUGR, antepartum*05/25/2012 02/22/2013 History of recurrent UTI (urinary tract infecti*05/25/2012 06/06/2012 History of hemorrhage, currently pre*05/25/2012 02/22/2013 History of depression [Z86.59] 05/25/2012 02/22/2013 History of asthma [Z87.09] 05/25/2012 02/22/2013 Nausea and vomiting in [O21.9] 05/25/2012 02/22/2013 Immunization due [Z23] 05/25/2012 02/22/2013 Rh negative state in antepartum period [O26.899*05/26/2012 02/22/2013 Supervision of high-risk [O09.90] 06/06/2012 02/22/2013 Tobacco use [Z72.0] 03/29/2013 IUD (intrauterine device) in place [Z97.5] 03/29/2013 08/23/2017 Depression [F32.A] 11/06/2013 Thoracic or lumbosacral neuritis or radiculitis*05/29/2014 Goiter [E04.9] 03/04/2015 ZAIRE (generalized anxiety disorder) [F41.1] 04/27/2021 Bipolar 2 disorder (HCC) [F31.81] 04/27/2021 Encounter Status:Closed by KRISTEN ATKINS on 01/23/24 [facility] HEAD/NECK SOFT TISSUE OT Ramona 01-19-2024 US HEAD/NECK SOFT TISSUE OTHER * * *Final Report* * * DATE OF EXAM: Jan 19 2024 10:18AM LOUISA 1052 - US HEAD/NECK SOFT TISSUE OTHER / PROCEDURE REASON: Nodule of external ear, left * * * * Physician Interpretation * * * * EXAMINATION: US HEAD/NECK SOFT TISSUE OTHER CLINICAL INFORMATION: 39 years old Female with Nodule of external ear, left. Evaluation of 2 cm nodule behind left ear. COMPARISON: None. TECHNIQUE: Targeted grayscale and Doppler sonography of the LEFT postauricular region in the area of concern was performed. Images were obtained and stored in a permanent archive. RESULT/ IMPRESSION: 1.3 x 0.8 x 1.0 cm ovoid cutaneous/subcutaneous hypoechoic cystic lesion LEFT postauricular region in the area of concern most suggestive of an epidermal inclusion cyst. Transport Manager: PSCB Transcribe Date/Time: Jan 21 2024 7:59A Dictated by : LINDSEY DUFFY DO This examination was interpreted and the report reviewed and electronically signed by: LINSDEY DUFFY DO on Jan 21 2024 8:01AM EST [id number] Normal [facility] CNOVon 01-18-2024 CNOV Office Visit (FAMPWS ) -- KRISTEL CHILEL ([id number]) 1985 F [facility] Date Time Provider Department 01/18/24 11:00 AM GUILLE CONDE [facility] During your visit today, we recorded the following information about you: Pulse Respiration Blood pressure Weight 88/minute 12/minute 126/62 78.9 kg Height 1.549 m Guille Conde MD 01/18/2024 1:15 PM Signed Chief Complaint Patient presents with: Follow Up: multiple issues: high cholesterol, possible sleep apnea, left ear lump HPI Kristelivelisse Chilel is a 39 year old female who presents here today for Above Complaints. Patient has had recent labs which showed high cholesterol. Worried she may need medications. Has been working on lower cholesterol diet and triglycerides have come down <500. Working on walking. Also concerned she could have sleep apnea. Patient reports that has been fatigued even with getting 8 hours of sleep and gets headaches. Denies snoring or apneic episodes. Also complaining of lump behind her left ear for the last couple of years. Not treating with anything at home. Denies fever/chills, erythema, warmth to touch, drainage. Past medical history, appointments, medications, allergies reviewed. Previous Medical History PAST MEDICAL HISTORY 2001: Abnormal glandular Papanicolaou smear of cervix Comment: Abn. Pap smear (cervix),ASCUS No date: Anxiety No date: Bulging disc Comment: L5 2001: Chlamydia No date: Galactorrhea not associated with childbirth 03/04/2015: Goiter No date: Headache No date: History of migraine No date: Mastodynia No date: Nerve damage Comment: right leg 2001: hemorrhage No date: RECURRENT UTI Comment: WITH PREGNANCIES 05/26/2012: Rh negative state in antepartum period No date: Tobacco use disorder Previous Surgical History PAST SURGICAL HISTORY No date: DILATION AND CURETTAGE DXAND/THER NONOBSTETRIC Comment: Dilation AND curettage : ESSURE 06/19/15: SALPINGECTOMY; Bilateral No date: TONSILLECTOMY AND ADENOIDECTOMY 06/19/15: VAGINAL HYSTERECTOMY UTERUS 250 GM/< Comment: TLH Family History FAMILY HISTORY Problem Relation Age of Onset Heart Mother Heart Sister has had repair of defect Breast Cancer Maternal Aunt Asthma Mother Hypertension Mother Aneurysm Mother 66 brain Patient Allergies ALLERGIES Allergen Reactions Cats SNEEZING,WATERY EYES Dog Hair Anaphylaxis SNEEZING, WATERY EYES Sulfa (Sulfonamide * Hives Current Medications Current Outpatient Medications on File Prior to Visit Medication Sig gabapentin (NEURONTIN) 300 mg capsule Take 1 capsule by mouth two times a day for 60 days. lurasidone (LATUDA) 40 mg tablet Take 1 tablet by mouth daily with food. Take with atleast 300 calories. prazosin (MINIPRESS) 1 mg cap Take 1 capsule by mouth daily at bedtime. albuterol HFA (PROVENTIL HFA, VENTOLIN HFA) 90 mcg/actuation inhaler Inhale 2 Puffs as instructed every 4 hours as needed for wheezing/shortness of breath. predniSONE (DELTASONE) 10 mg tablet Take 4 tabs daily for 3 days, then 2 tabs daily for 3 days, then 1 tab daily for 3 days with food. dicyclomine (BENTYL) 10 mg capsule TAKE 1 CAPSULE THREE TIMES DAILY BEFORE MEALS albuterol HFA (PROAIR HFA) 90 mcg/actuation inhaler Inhale 1-2 Puffs as instructed every 4 hours as needed. No current facility-administered medications on file prior to visit. Social History Social History Tobacco Use Smoking status: Every Day Packs/day: 1.00 Years: 16.00 Additional pack years: 0.00 Total pack years: 16.00 Types: Cigarettes Smokeless tobacco: Never Substance Use Topics Alcohol use: Yes Comment: occasionally,NOT WHILE Drug use: No Review of Symptoms REVIEW OF SYSTEMS See HPI EXAM: BP 126/62 (BP Site: Left Arm, BP Position: Sitting, BP Cuff Size: Large Adult) Pulse 88 Resp 12 Ht 154.9 cm (5' 1 ) Wt 78.9 kg (174 lb) LMP 04/30/2015 (Approximate) SpO2 98% BMI 32.88 kg/m? General Appearance: Well appearing, alert, in no acute distress, well-hydrated, well nourished.. Skin: Skin color, texture, turgor normal, no suspicious rashes or lesions. Head: Normocephalic, no masses, lesions, tenderness or abnormalities. Ears: Canals and TMs normal. 2 cm nodule behind left earlobe which transilluminates with otoscope. Non tender. No erythema or drainage. Neck: Supple, no adenopathy; thyroid symmetric, normal size, no bruits. Lungs: Lungs clear to auscultation. No wheezing, rhonchi, rales.. Heart: RRR without murmur, gallop, or rubs. No ectopy. Health Maintenance List Hepatitis C Screening Never done HIV Screening Never done DTaP,Tdap,Td Vaccine(1 - Tdap) Never done Hepatitis B Vaccine(1 of 3 - 19+ 3-dose series) Never done Shingrix Vaccine(1 of 2) Never done Pneumococcal Vaccine(2 of 2 - PCV) due on 02/19/2007 Cervical Cancer Screening d (more content not included)... Normal [facility] Cholesterol in LDL Direct as say [Mass/Vol]on 01-12-2024 Cholesterol in LDL [Mass/Vol] 86 mg/dL Normal <100 [facility] Comment on above: Order Comment: Speci men Type: BLOOD SPECIMEN Ordering Facility: [facility] Address: [address] [place] [address] Result Comment: <100 mg/dL, Optimal 100-129 mg/dL, Near optimal/above optimal 130-159 mg/dL, Borderline high 160-189 mg/dL, High >189 mg/dL, Very high Secondary prevention optimal LDL Cholesterol levels are recommended to be < 70 mg/dL Performed By: #### 2 4323-8, 70822-1, #### [facility] CLIA [id number] [address] [place] [id number] [place] Cholesterol in VLDL [Mass/Vol] 98 mg/dL High <30 [facility] Comment on above: Order Comment: Speci men Type: BLOOD SPECIMEN Ordering Facility: [facility] Address: [address] [place] [address] Performed By: #### 2 4323-8, 23699-7, #### [facility] CLIA [id number] [address] [place] [address] [place] Lipid 1996 panelon 4 Cholesterol [Mass/Vol] 208 mg/dL High <200 [facility] Comment on above: Order Comment: Speci men Type: BLOOD SPECIMEN Ordering Facility: [facility] Address: [address] [place] [address] Result Comment: <200 mg/dL, Desirable 200-239 mg/dL, Borderline high >239 mg/dL, High Performed By: #### 2 4323-8, 55890-0, #### [facility] CLIA [id number] [address] [place] [address] [place] Cholesterol in HDL [Mass/Vol] 24 mg/dL Low >39 [facility] Comment on above: Order Comment: Speci men Type: BLOOD SPECIMEN Ordering Facility: [facility] Address: [address] [place] [address] Result Comment: 40-5 9 mg/dL, Acceptable >59 mg/dL, High: Negative risk factor for coronary heart disease <40 mg/dL, Low: Positive risk factor for coronary heart disease Performed By: #### 2 4323-8, 23397-4, #### [facility] CLIA [id number] [address] [address] [place] Cholesterol in LDL [Mass/Vol] Normal [facility] Comment on above: Order Comment: Speci men Type: BLOOD SPECIMEN Ordering Facility: [facility] Address: [address] [place] [address] Result Comment: Unab le to calculate due to increased Triglycerides. See LDL-Chol, Direct. Performed By: #### 2 4323-8, 77849-4, 67317-9 #### [facility] CLIA [id number] [address] [place] [id number] [place] Cholesterol in LDL/Cholesterol in HDL [Mass ratio] Normal [facility] Comment on above: Order Comment: Speci men Type: BLOOD SPECIMEN Ordering Facility: [facility] Address: [address] [place] [address] Result Comment: Unab le to calculate due to elevated Triglycerides. Reference: 1. National Cholesterol Education Program ATP III Guideline At-A-Glance Quick Desk Reference: National Heart, Lung, and Blood [place]. National Institutes of Health. 2001: NIH Publication No. 01-3305. 2. An International Atherosclerosis Society position paper: global recommendations for the management of dyslipidemia: executive summary, Atherosclerosis. 2014: 232(2):410-413. Performed By: #### 2 4323-8, 39479-0, 04213-3 #### [facility] CLIA [id number] [address] [place], [place] [address] [place] [address] [place] Cholesterol in VLDL [Mass/Vol] Normal [facility] Comment on above: Order Comment: Speci men Type: BLOOD SPECIMEN Ordering Facility: [facility] Address: [address] [place] [address] Result Comment: Unab le to calculate due to increased Triglycerides. See LDL-Chol, Direct. Performed By: #### 2 4323-8, 24035-0, 29333-6 #### [facility] CLIA [id number] [address] [place] [id number] [place] Cholesterol non HDL [Mass/Vol] 184 mg/dL High <130 [facility] Comment on above: Order Comment: Speci men Type: BLOOD SPECIMEN Ordering Facility: [facility] Address: [address] [place] [address] Result Comment: <130 mg/dL, Optimal 130-159 mg/dL, Near optimal/above optimal 160-189 mg/dL, Borderline high 190-219 mg/dL, High >219 mg/dL, Very high Secondary prevention optimal non HDL Cholesterol levels are recommended to be <100 mg/dL Performed By: #### 2 4323-8, 28876-4, 86637-6 #### [facility] CLIA [id number] [address] [place] [address] [place] Cholesterol.total/ Cholesterol in HDL [Mass ratio] 8.67 {ratio} High <5.10 [facility] Comment on above: Order Comment: Speci men Type: BLOOD SPECIMEN Ordering Facility: [facility] Address: [address] [place] [address] Performed By: #### 2 4323-8, 60416-0, 95213-4 #### [facility] CLIA [id number] [address] [place] [address] [place] FASTING TIME 12 hrs Normal [facility] Comment on above: Order Comment: Speci men Type: BLOOD SPECIMEN Ordering Facility: [facility] Address: [address] [place] [address] Performed By: #### 2 4323-8, 92837-5, 22839-4 #### [facility] CLIA [id number] [address] [place] [address] [place] Triglyceride [Mass/Vol] 441 mg/dL High <150 [facility] Comment on above: Order Comment: Speci men Type: BLOOD SPECIMEN Ordering Facility: [facility] Address: [address] [place] [address] Result Comment: <150 mg/dL, Normal 150-199 mg/dL, Borderline high 200-499 mg/dL, High >499 mg/dL, Very high Performed By: #### 2 4323-8, 33371-5, 71018-9 #### [facility] CLIA [id number] [address] [place] [address] OF [facility] 01-11-2024 CNPN Telephone (PSWSTR) -- KRISTEL CHILEL ([id number]) 1985 F T Date Time Provider Department 01/11/24 KINSEY LEVINE PSWSTR During your visit today, we recorded the following information about you: Simeon Maya RN 01/11/2024 9:51 AM Signed Patient reports she has viewed her lab results on [employer], and is concerned about the abnormal results. Reports she did fast for these labs. Asking Kinsey to please review and advise. Kinsey Levine, [employer].[facility] 01/11/2024 10:17 AM Signed Please notify the patient that the cholesterol results seems unusually high compared to her past results, especially since she confirmed in her GI Track message that she was fasting. Please have her complete the cholesterol fasting lab work again. Have her fast for 12 hours prior to the lab work. Let me know if she has any questions. Melvi Swift MA 01/11/2024 10:47 AM Signed Patient was notified Melvi Swift MA Allergies As of Date: 01/11/2024 Noted Allergy Reaction CATS 01/27/2009 Comments: SNEEZING,WATERY EYES DOG HAIR 01/27/2009 10 - Anaphylaxis Comments: SNEEZING, WATERY EYES SULFA (SULFONAMIDE ANTIBIOTICS) 06/03/2009 4 - Hives Date Reviewed: 2024 Reviewed by: Melvi Swift MA - Fully Assessed Reason for Visit: Results [95] Primary Visit Diagnosis:Elevated lipids [E78.5] Order(s):LIPID PANEL BASIC [SQLIPB] Order #: [id number] FUTURE Prescriptions as of 01/11/2024 - gabapentin (NEURONTIN) 300 mg capsule Take 1 capsule by mouth two times a day for 60 days. - lurasidone (LATUDA) 40 mg tablet Take 1 tablet by mouth daily with food. Take with atleast 300 calories. - prazosin (MINIPRESS) 1 mg cap Take 1 capsule by mouth daily at bedtime. - albuterol HFA (PROVENTIL HFA, VENTOLIN HFA) 90 mcg/actuation inhaler Inhale 2 Puffs as instructed every 4 hours as needed for wheezing/shortness of breath. - predniSONE (DELTASONE) 10 mg tablet Take 4 tabs daily for 3 days, then 2 tabs daily for 3 days, then 1 tab daily for 3 days with food. - dicyclomine (BENTYL) 10 mg capsule TAKE 1 CAPSULE THREE TIMES DAILY BEFORE MEALS - albuterol HFA (PROAIR HFA) 90 mcg/actuation inhaler Inhale 1-2 Puffs as instructed every 4 hours as needed. Problem List As Of Date 01/11/2024 Noted Resolved Tobacco use disorder [F17.200] 08/06/2008 06/06/2012 Galactorrhea not Associated with Childbirth [N6*11/29/2008 10/10/2009 Mastodynia [N64.4] 11/29/2008 10/10/2009 Poor Grth-Antepart [O36.5990] 08/20/2009 10/10/2009 DEPRESSION [F32.89] 10/28/2009 06/06/2012 Routine general medical examination at [facility]*02/19/2010 06/06/2012 Class: Chronic Routine gynecological examination [Z01.419] 02/19/2010 06/06/2012 Class: Chronic Other acne [L70.8] 06/30/2010 06/06/2012 Folliculitis [L73.9] 06/30/2010 06/06/2012 Pruritus [L29.9] 06/30/2010 06/06/2012 Eczematous dermatitis [L30.9] 06/30/2010 06/06/2012 Acne Urticata [L50.9] 06/30/2010 06/06/2012 Prior complicated by IUGR, antepartum*05/25/2012 02/22/2013 History of recurrent UTI (urinary tract infecti*05/25/2012 06/06/2012 History of hemorrhage, currently pre*05/25/2012 02/22/2013 History of depression [Z86.59] 05/25/2012 02/22/2013 History of asthma [Z87.09] 05/25/2012 02/22/2013 Nausea and vomiting in [O21.9] 05/25/2012 02/22/2013 Immunization due [Z23] 05/25/2012 02/22/2013 Rh negative state in antepartum period [O26.899*05/26/2012 02/22/2013 Supervision of high-risk [O09.90] 06/06/2012 02/22/2013 Tobacco use [Z72.0] 03/29/2013 IUD (intrauterine device) in place [Z97.5] 03/29/2013 08/23/2017 Depression [F32.A] 11/06/2013 Thoracic or lumbosacral neuritis or radiculitis*05/29/2014 Goiter [E04.9] 03/04/2015 ZAIRE (generalized anxiety disorder) [F41.1] 04/27/2021 Bipolar 2 disorder (HCC) [F31.81] 04/27/2021 Encounter Status:Closed by KINSEY LEVINE on 01/11/24 Normal [facility] Cholesterol in LDL Direct as say [Mass/Vol]on 2024 Cholesterol in LDL [Mass/Vol] 62 mg/dL Normal <100 [facility] Comment on above: Order Comment: Speci men Type: BLOOD SPECIMEN Ordering Facility: [facility] Address: [address] [place] [address] Result Comment: <100 mg/dL, Optimal 100-129 mg/dL, Near optimal/above optimal 130-159 mg/dL, Borderline high 160-189 mg/dL, High >189 mg/dL, Very high Secondary prevention optimal LDL Cholesterol levels are recommended to be < 70 mg/dL Performed By: #### 2 4323-8, 41816-1, 02868-5 #### [facility] CLIA [id number] [address] [place] [address] [id number], [place] [address] [place] Cholesterol in VLDL [Mass/Vol] 135 mg/dL High <30 [facility] Comment on above: Order Comment: Speci men Type: BLOOD SPECIMEN Ordering Facility: [facility] Address: [address] [place] [address] Performed By: #### 2 4323-8, 36516-4, 73743-3 #### [facility] CLIA [id number] [address] [place] [address] [place] Comprehensive metabolic 2000 panelon 2024 Albumin [Mass/Vol] 4.3 g/dL Normal 3.9-4.9 [facility] Comment on above: Order Comment: Speci men Type: BLOOD SPECIMEN Ordering Facility: [facility] Address: [address] [place] [address] Performed By: #### 2 4323-8, 38003-0, #### [facility] CLIA [id number] [address] [place] [address] [place] ALP [Catalytic activity/Vol] 85 U/L Normal 34-123 [facility] Comment on above: Order Comment: Speci men Type: BLOOD SPECIMEN Ordering Facility: [facility] Address: [address] [place] [address] Performed By: #### 2 4323-8, 74500-4, #### [facility] CLIA [id number] [address] [place] [address] [place] ALT [Catalytic activity/Vol] 54 U/L High 7-38 [facility] Comment on above: Order Comment: Speci men Type: BLOOD SPECIMEN Ordering Facility: [facility] Address: [address] [place] [address] Performed By: #### 2 4323-8, 29189-6, 52677-5 #### [facility] CLIA [id number] [address] [place], [place] [id number] [place] Anion gap [Moles/Vol] 9 mmol/L Normal 8-15 [facility] Comment on above: Order Comment: Speci men Type: BLOOD SPECIMEN Ordering Facility: [facility] Address: [address] [place] [address] Performed By: #### 2 4323-8, 13521-8, #### [facility] CLIA [id number] [address] [place] [address] [place] AST [Catalytic activity/Vol] 34 U/L Normal 13-35 [facility] Comment on above: Order Comment: Speci men Type: BLOOD SPECIMEN Ordering Facility: [facility] Address: [address] [place] [address] Performed By: #### 2 4323-8, 68804-1, #### [facility] CLIA [id number] [address] [place] [address] [place] Bilirubin [Mass/Vol] 0.4 mg/dL Normal 0.2-1.3 [facility] Comment on above: Order Comment: Speci men Type: BLOOD SPECIMEN Ordering Facility: [facility] Address: [address] [place] [address] Performed By: #### 2 4323-8, 15207-0, #### [facility] CLIA [id number] [address] [place] [address] [place] Calcium [Mass/Vol] 9.9 mg/dL Normal 8.5-10.2 [facility] Comment on above: Order Comment: Speci men Type: BLOOD SPECIMEN Ordering Facility: [facility] Address: [address] [place], [place] [id number] Performed By: #### 2 4323-8, 50501-4, #### [facility] CLIA [id number] [address] [place], [place] [id number] [place] Chloride [Moles/Vol] 103 mmol/L Normal 98-107 [facility] Comment on above: Order Comment: Speci men Type: BLOOD SPECIMEN Ordering Facility: [facility] Address: [address] [place] [address] Performed By: #### 2 4323-8, 89091-2, 39716-4 #### [facility] CLIA [id number] [address] [place] [address] [place] CO2 [Moles/Vol] 24 mmol/L Normal 22-30 [facility] Comment on above: Order Comment: Speci men Type: BLOOD SPECIMEN Ordering Facility: [facility] Address: [address] [place] [address] Performed By: #### 2 4323-8, 44246-6, #### [facility] CLIA [id number] [address] [place] [address] [place] Creatinine [Mass/Vol] 0.86 mg/dL Normal 0.58-0.96 [facility] Comment on above: Order Comment: Speci men Type: BLOOD SPECIMEN Ordering Facility: [facility] Address: [address] [place] [address] Performed By: #### 2 4323-8, 07755-5, #### [facility] CLIA [id number] [address] [place] [address] [place] Creatinine and Glomerular filtration rate.predicted panel (S/P/Bld) 89 mL/min/1.73m??? Normal >=60 [facility] Comment on above: Order Comment: Speci men Type: BLOOD SPECIMEN Ordering Facility: [facility] Address: [address] [place] [address] Result Comment: Kasey mated Glomerular Filtration Rate (eGFR) is calculated using the 2020 CKD-EPI creatinine equation. This equation utilizes serum creatinine, sex, and age as parameters. The creatinine assay has traceable calibration to isotope dilution-mass spectrometry. Refer to KDIGO guidelines for clinical interpretation. In patients with unstable renal function, e.g. those with acute kidney injury, the eGFR may not accurately reflect actual GFR. Performed By: #### 2 4323-8, 03878-7, 77778-0 #### [facility] CLIA [id number] [address] [place] [address] [place] Glucose [Mass/Vol] 106 mg/dL High 74-99 [facility] Comment on above: Order Comment: Chaka lua Type: BLOOD SPECIMEN Ordering Facility: [facility] Address: [address] [place] [address] Result Comment: The [place] Diabetes Association (ADA) provides guidance for cutoff values for fasting glucose and random glucose. The ADA defines fasting as no caloric intake for at least 8 hours. Fasting plasma glucose results between 100 to 125 mg/dL indicate increased risk for diabetes (prediabetes). Fasting plasma glucose results greater than or equal to 126 mg/dL meet the criteria for diagnosis of diabetes. In the absence of unequivocal hyperglycemia, results should be confirmed by repeat testing. In a patient with classic symptoms of hyperglycemia or hyperglycemic crisis, random plasma glucose results greater than or equal to 200 mg/dL meet the criteria for diagnosis of diabetes. Reference: Standards of Medical Care in Diabetes 2016, [place] [employer]. Diabetes Care. 2016.39(Suppl 1). Performed By: #### 2 4323-8, 38660-9, 26052-2 #### [facility] CLIA [id number] [address] [place] [address] [place] Potassium [Moles/Vol] 4.3 mmol/L Normal 3.7-5.1 [facility] Comment on above: Order Comment: Chaka lua Type: BLOOD SPECIMEN Ordering Facility: [facility] Address: [address] [place] [address] Performed By: #### 2 4323-8, 46399-5, 99646-6 #### [facility] CLIA [id number] [address] [place] [address] [place] Protein [Mass/Vol] 7.3 g/dL Normal 6.3-8.0 [facility] Comment on above: Order Comment: Chaka lua Type: BLOOD SPECIMEN Ordering Facility: [facility] Address: [address] [place] [address] Performed By: #### 2 4323-8, 07526-7, 05776-6 #### [facility] CLIA [id number] [address] [place] [address] [place] Sodium [Moles/Vol] 136 mmol/L Normal 136-144 [facility] Comment on above: Order Comment: Speci men Type: BLOOD SPECIMEN Ordering Facility: [facility] Address: [address] [place] [address] Performed By: #### 2 4323-8, 67686-3, 67145-1 #### [facility] CLIA [id number] [address] [place] [address] [place] Urea nitrogen [Mass/Vol] 12 mg/dL Normal 7-21 [facility] Comment on above: Order Comment: Speci men Type: BLOOD SPECIMEN Ordering Facility: [facility] Address: [address] [place] [address] Performed By: #### 2 4323-8, 94945-9, 45829-7 #### [facility] CLIA [id number] [address] [place] [address] [place] Lipid 1996 panelon 4 Cholesterol [Mass/Vol] 219 mg/dL High <200 [facility] Comment on above: Order Comment: Speci men Type: BLOOD SPECIMEN Ordering Facility: [facility] Address: [address] [place] [address] Result Comment: <200 mg/dL, Desirable 200-239 mg/dL, Borderline high >239 mg/dL, High Performed By: #### 2 4323-8, 26263-1, 46341-4 #### [facility] CLIA [id number] [address] [place] [address] [place] Cholesterol in HDL [Mass/Vol] 22 mg/dL Low >39 [facility] Comment on above: Order Comment: Speci men Type: BLOOD SPECIMEN Ordering Facility: [facility] Address: [address], [place] [address] Result Comment: 40-5 9 mg/dL, Acceptable >59 mg/dL, High: Negative risk factor for coronary heart disease <40 mg/dL, Low: Positive risk factor for coronary heart disease Performed By: #### 2 4323-8, 41515-2, 40579-8 #### [facility] CLIA [id number] [address] [facility] [address] [address] [place] Cholesterol in LDL [Mass/Vol] Normal [facility] Comment on above: Order Comment: Speci men Type: BLOOD SPECIMEN Ordering Facility: [facility] Address: [address] [place] [address] Result Comment: Unab le to calculate due to increased Triglycerides. See LDL-Chol, Direct. Performed By: #### 2 4323-8, 86038-7, #### [facility] CLIA [id number] [address] [place] [address] [place] Cholesterol in LDL/Cholesterol in HDL [Mass ratio] Normal [facility] Comment on above: Order Comment: Speci men Type: BLOOD SPECIMEN Ordering Facility: [facility] Address: [address] [place] [address] Result Comment: Unab le to calculate due to elevated Triglycerides. Reference: 1. National Cholesterol Education Program ATP III Guideline At-A-Glance Quick Desk Reference: National Heart, Lung, and Blood [place]. National Institutes of Health. 2001: NIH Publication No. 01-3305. 2. An International Atherosclerosis Society position paper: global recommendations for the management of dyslipidemia: executive summary, Atherosclerosis. 2014: 232(2):410-413. Performed By: #### 2 4323-8, 77589-5, 16111-3 #### [facility] CLIA [id number] [address] [place] [address] [place] Cholesterol in VLDL [Mass/Vol] Normal [facility] Comment on above: Order Comment: Speci men Type: BLOOD SPECIMEN Ordering Facility: [facility] Address: [address] [place] [address] Result Comment: Unab le to calculate due to increased Triglycerides. See LDL-Chol, Direct. Performed By: #### 2 4323-8, 99465-8, #### [facility] CLIA [id number] [address] [place] [address] [place] Cholesterol non HDL [Mass/Vol] 197 mg/dL High <130 [facility] Comment on above: Order Comment: Speci men Type: BLOOD SPECIMEN Ordering Facility: [facility] Address: [address] [place] [address] Result Comment: <130 mg/dL, Optimal 130-159 mg/dL, Near optimal/above optimal 160-189 mg/dL, Borderline high 190-219 mg/dL, High >219 mg/dL, Very high Secondary prevention optimal non HDL Cholesterol levels are recommended to be <100 mg/dL Performed By: #### 2 4323-8, 39652-6, #### [facility] CLIA [id number] [address] [place] [address] [place] Cholesterol.total/ Cholesterol in HDL [Mass ratio] 9.95 {ratio} High <5.10 [facility] Comment on above: Order Comment: [place]ah[place] men Type: BLOOD SPECIMEN Ordering Facility: [facility] Address: [address] [place] [address] Performed By: #### 2 4323-8, 74276-1, #### [facility] CLIA [id number] [address] [place] [address] [place] FASTING TIME 12 hrs Normal [facility] Comment on above: Order Comment: Ruth Anni men Type: BLOOD SPECIMEN Ordering Facility: [facility] Address: [address] [place] [address] Performed By: #### 2 4323-8, 20373-0, #### [facility] CLIA [id number] [address] [place] [id number] [place] Triglyceride [Mass/Vol] 686 mg/dL High <150 [facility] Comment on above: Order Comment: Speci men Type: BLOOD SPECIMEN Ordering Facility: [facility] Address: [address] [place] [address] Result Comment: <150 mg/dL, Normal 150-199 mg/dL, Borderline high 200-499 mg/dL, High >499 mg/dL, Very high Performed By: #### 2 4323-8, 80615-0, #### [facility] CLIA [id number] [address] [place] [address] [place] CBC W Auto Differential pane l (Bld)on 11-24-2023 Basophils (Bld) [#/Vol] 0.05 10*3/uL Normal <0.11 [facility] Comment on above: Order Comment: Speci men Type: BLOOD SPECIMEN Ordering Facility: [facility] Address: [address] [place] [address] Performed By: #### 2 4323-8, 25390-8, #### [facility] CLIA [id number] [address] [place] [address] [place] Basophils/100 WBC (Bld) 0.5 % Normal [facility] Comment on above: Order Comment: Speci men Type: BLOOD SPECIMEN Ordering Facility: [facility] Address: [address] [place] [address] Performed By: #### 2 4323-8, 10790-0, #### [facility] CLIA [id number] [address] [place] [address] [place] Differential cell count method Nom (Bld) Auto Normal [facility] Comment on above: Order Comment: Speci men Type: BLOOD SPECIMEN Ordering Facility: [facility] Address: [address] [place] [address] Performed By: #### 2 4323-8, 98804-6, #### [facility] CLIA [id number] [address] [place] [address] [place] Eosinophils (Bld) [#/Vol] 0.31 10*3/uL Normal <0.46 [facility] Comment on above: Order Comment: Speci men Type: BLOOD SPECIMEN Ordering Facility: [facility] Address: [address] [place] [address] Performed By: #### 2 4323-8, 24596-8, 56500-5 #### [facility] CLIA [id number] [address] [place] [address] [place] Eosinophils/100 WBC (Bld) 3.0 % Normal [facility] Comment on above: Order Comment: Speci men Type: BLOOD SPECIMEN Ordering Facility: [facility] Address: [address] [place] [address] Performed By: #### 2 4323-8, 90996-1, #### [facility] CLIA [id number] [address] [place] [address] [place] Erythrocyte distribution width (RBC) [Ratio] 12.3 % Normal 11.5-15.0 [facility] Comment on above: Order Comment: Speci men Type: BLOOD SPECIMEN Ordering Facility: [facility] Address: [address] [place] [address] Performed By: #### 2 4323-8, 85624-6, #### [facility] CLIA [id number] [address] [place] [address] [place] Hematocrit (Bld) [Volume fraction] 48.7 % High 36.0-46.0 [facility] Comment on above: Order Comment: Speci men Type: BLOOD SPECIMEN Ordering Facility: [facility] Address: [address] [place] [address] Performed By: #### 2 4323-8, 31713-0, 65201-8 #### [facility] CLIA [id number] [address] [place] [address] [place] Hemoglobin (Bld) [Mass/Vol] 16.1 g/dL High 11.5-15.5 [facility] Comment on above: Order Comment: Speci men Type: BLOOD SPECIMEN Ordering Facility: [facility] Address: [address] [place] [address] Performed By: #### 2 4323-8, 26810-7, 07898-0 #### [facility] CLIA [id number] [address] [place] [address] [place] Immature granulocytes (Bld) [#/Vol] 0.05 10*3/uL Normal <0.10 [facility] Comment on above: Order Comment: Speci men Type: BLOOD SPECIMEN Ordering Facility: [facility] Address: [address] [place] [address] Performed By: #### 2 4323-8, 09767-5, 32026-0 #### [facility] CLIA [id number] [address] [place] [address] [place] Immature granulocytes/100 WBC (Bld) 0.5 % Normal [facility] Comment on above: Order Comment: Speci men Type: BLOOD SPECIMEN Ordering Facility: [facility] Address: [address] [place] [address] Performed By: #### 2 4323-8, 12372-3, 98948-3 #### [facility] CLIA [id number] [address] [place] [address] [place] Lymphocytes (Bld) [#/Vol] 2.71 10*3/uL Normal 1.00-4.00 [facility] Comment on above: Order Comment: Speci men Type: BLOOD SPECIMEN Ordering Facility: [facility] Address: [address] [place] [address] Performed By: #### 2 4323-8, 12242-1, 09780-3 #### [facility] CLIA [id number] [address] [place] [address] [place] Lymphocytes/100 WBC (Bld) 25.9 % Normal [facility] Comment on above: Order Comment: Speci men Type: BLOOD SPECIMEN Ordering Facility: [facility] Address: [address] [place] [address] Performed By: #### 2 4323-8, 08690-8, #### [facility] CLIA [id number] [address] [place] [address] [place] MCH (RBC) [Entitic mass] 30.2 pg Normal 26.0-34.0 [facility] Comment on above: Order Comment: Speci men Type: BLOOD SPECIMEN Ordering Facility: [facility] Address: [address] [place] [address] Performed By: #### 2 4323-8, 07552-8, #### [facility] CLIA [id number] [address] [place] [address] [place] MCHC (RBC) [Mass/Vol] 33.1 g/dL Normal 30.5-36.0 [facility] Comment on above: Order Comment: Speci men Type: BLOOD SPECIMEN Ordering Facility: [facility] Address: [address] [place] [address] Performed By: #### 2 4323-8, 20437-1, #### [facility] CLIA [id number] [address] [place] [address] [place] MCV (RBC) [Entitic vol] 91.4 fL Normal 80.0-100.0 [facility] Comment on above: Order Comment: Speci men Type: BLOOD SPECIMEN Ordering Facility: [facility] Address: [address] [place] [address] Performed By: #### 2 4323-8, 10955-6, #### [facility] CLIA [id number] [address] [place] [address] [place] Monocytes (Bld) [#/Vol] 0.50 10*3/uL Normal <0.87 [facility] Comment on above: Order Comment: Speci men Type: BLOOD SPECIMEN Ordering Facility: [facility] Address: [address] [place] [address] Performed By: #### 2 4323-8, 99084-6, #### [facility] CLIA [id number] [address] [place] [address] [place] Monocytes/100 WBC (Bld) 4.8 % Normal [facility] Comment on above: Order Comment: Speci men Type: BLOOD SPECIMEN Ordering Facility: [facility] Address: [address] [place] [address] Performed By: #### 2 4323-8, 34455-4, #### [facility] CLIA [id number] [address] [place] [address] [place] Neutrophils (Bld) [#/Vol] 6.86 10*3/uL Normal 1.45-7.50 [facility] Comment on above: Order Comment: Speci men Type: BLOOD SPECIMEN Ordering Facility: [facility] Address: [address] [place] [address] Performed By: #### 2 4323-8, 70408-4, #### [facility] CLIA [id number] [address] [place] [address] [place] Neutrophils/100 WBC (Bld) 65.3 % Normal [facility] Comment on above: Order Comment: Speci men Type: BLOOD SPECIMEN Ordering Facility: [facility] Address: [address] [place] [address] Performed By: #### 2 4323-8, 96989-5, #### [facility] CLIA [id number] [address] [place] [address] [place] Nucleated RBC (Bld) [#/Vol] 10*3/uL Normal <0.01 [facility] Comment on above: Order Comment: Speci men Type: BLOOD SPECIMEN Ordering Facility: [facility] Address: [address] [place] [address] Performed By: #### 2 4323-8, 57451-8, 78111-2 #### [facility] CLIA [id number] [address] [place] [address] [place] Nucleated RBC/100 WBC (Bld) [Ratio] 0.0 /100 WBC Normal [facility] Comment on above: Order Comment: Speci men Type: BLOOD SPECIMEN Ordering Facility: [facility] Address: [address] [place] [address] Performed By: #### 2 4323-8, 47784-0, 46354-8 #### [facility] CLIA [id number] [address] [place] [address] [place] Platelet mean volume (Bld) [Entitic vol] 12.0 fL Normal 9.0-12.7 [facility] Comment on above: Order Comment: Speci men Type: BLOOD SPECIMEN Ordering Facility: [facility] Address: [address] [place] [address] Performed By: #### 2 4323-8, 17023-9, 37235-6 #### [facility] CLIA [id number] [address] [place] [address] [place] Platelets (Bld) [#/Vol] 190 10*3/uL Normal 150-400 [facility] Comment on above: Order Comment: Speci men Type: BLOOD SPECIMEN Ordering Facility: [facility] Address: [address] [place] [address] Performed By: #### 2 4323-8, 59523-6, 19683-5 #### [facility] CLIA [id number] [address] [place] [address] [place] RBC (Bld) [#/Vol] 5.33 10*6/uL High 3.90-5.20 [facility] Comment on above: Order Comment: Speci men Type: BLOOD SPECIMEN Ordering Facility: [facility] Address: [address] [place], [place] [id number] Performed By: #### 2 4323-8, 15771-6, 70421-8 #### [facility] CLIA [id number] [address] [place] [address] [place] WBC (Bld) [#/Vol] 10.48 10*3/uL Normal 3.70-11.00 [facility] Comment on above: Order Comment: Speci men Type: BLOOD SPECIMEN Ordering Facility: [facility] Address: [address] [place] [address] Performed By: #### 2 4323-8, 05711-0, 00584-3 #### [facility] CLIA [id number] [address] [place] [address] [place] CNOVon 11-24-2023 CNOV Office Visit ([facility] ) -- KRISTEL CHILEL ([id number]) 1985 [facility] Date Time Provider Department 11/24/23 9:30 AM JOCY SCHULTZ [facility] During your visit today, we recorded the following information about you: Temperature Pulse Respiration Blood pressure 97.6 degrees 98/minute 19/minute 100/76 Weight 81.5 kg Jocy Schultz APRN.RESEARCH CHEMICAL ENGINEER 11/24/2023 11:14 AM Signed This note was created using [employer]riter. Subjective Kristel Chilel is a 38 year old female. Kristel Chilel is a 38 year old female with a PMH of childhood asthma presenting today for complaints of a productive cough for 4 days. She states that she is confident she has bronchitis. She states that the cough is deep feeling and she produces brown sputum. She states that she will be gasping for air during coughing episodes and at one point almost was incontinent of urine. She endorses a sore throat, body aches,wheezing, congestion, rhinorrhea, chills, fever, diaphoresis, fatigue, and sleep disturbances. She states she usually has an inhaler that helps with her cough but she ran out. She states that heat aggravates her symptoms and that she feels better in the cold. She has tried OTC cold and flu medication, tylenol, aleve, tessalon pearls to no relief. There was potentially interaction with a sick contact, she states she gets sick anytime someone else is sick. She is a smoker. No history of COPD. Pertinent negatives: -vomiting -diarrhea -chest pain Pertinent positives: +shortness of breath +wheezing +productive cough +nausea +chills +diaphoresis +body aches +fatigue +sleep disturbance +eye dryness +ear congestion +ear pain +sore throat +rhinorrhea +sneezing +congestion The history is provided by the patient and a friend. Cough This is a new problem. The current episode started more than 2 days ago. The problem occurs constantly. The problem has been gradually worsening. The cough is Productive of brown sputum. The maximum temperature recorded prior to her arrival was 101 to 101.9 F. The fever has been present for 1 to 2 days. Associated symptoms include chills, sweats, ear congestion, ear pain, rhinorrhea, sore throat, myalgias, shortness of breath and wheezing. Pertinent negatives include no chest pain, no weight loss, no headaches and no eye redness. She has tried decongestants (Tylenol, Aleve, tessalon pearls) for the symptoms. The treatment provided no relief. She is a smoker. Her past medical history is significant for asthma. Her past medical history does not include bronchitis, pneumonia, bronchiectasis, COPD or emphysema. Past medical history comments: childhood asthma. PAST MEDICAL HISTORY Diagnosis Date Abnormal glandular Papanicolaou smear of cervix 2001 Abn. Pap smear (cervix),ASCUS Anxiety Bulging disc L5 Chlamydia 2001 Galactorrhea not associated with childbirth Goiter 03/04/2015 Headache History of migraine Mastodynia Nerve damage right leg hemorrhage 2001 RECURRENT UTI WITH PREGNANCIES Rh negative state in antepartum period 05/26/2012 Tobacco use disorder PAST SURGICAL HISTORY Procedure Laterality Date DILATION AND CURETTAGE DXAND/THER NONOBSTETRIC Dilation AND curettage ESSURE SALPINGECTOMY Bilateral 06/19/15 TONSILLECTOMY AND ADENOIDECTOMY VAGINAL HYSTERECTOMY UTERUS 250 GM/< 06/19/15 [facility] ALLERGIES Cats, Dog Hair, and Sulfa (Sulfonamide Antibiotics) MEDICATIONS OLANZapine (ZYPREXA) 5 mg tablet Take 1 tablet by mouth daily at bedtime for 4 days, THEN 0.5 tablets daily at bedtime for 4 days. Discontinue after 8 days.. lurasidone (LATUDA) 20 mg tablet Take 1 tablet by mouth daily with food for 7 days. Take with atleast 300 calories a day. lurasidone (LATUDA) 40 mg tablet Take 1 tablet by mouth daily with food. Start after 7 days of 20 mg and take medication with 300 calories of food. gabapentin (NEURONTIN) 300 mg capsule Take 1 capsule by mouth every morning AND 2 capsules daily at bedtime. Do all this for 30 days. dicyclomine (BENTYL) 10 mg capsule TAKE 1 CAPSULE THREE TIMES DAILY BEFORE MEALS albuterol HFA (PROAIR HFA) 90 mcg/actuation inhaler Inhale 1-2 Puffs as instructed every 4 hours as needed. albuterol HFA (PROVENTIL HFA, VENTOLIN HFA) 90 mcg/actuation inhaler Inhale 2 Puffs as instructed every 4 hours as needed for wheezing/shortness of breath. Inhalational Spacing Device 1 Device one time only for 1 dose. predniSONE (DELTASONE) 10 mg tablet Take 4 tabs daily for 3 days, then 2 tabs daily for 3 days, then 1 tab daily for 3 days with food. Brompheniramine-Pseudoeph- DM (BROMFED DM) 2-30-10 mg/5 mL syrup Take 5 mL by mouth four times a day as needed. amoxicillin-clavulanate potassium (AUGMENTIN) 875-125 mg per tablet Take 1 tablet by mouth two times a day for 7 days. FAMILY HISTORY Problem Relation Age of Onset Heart Mothe (more content not included)... Normal [facility] [place] 11-24-2023 [facility] -- KRISTEL CHILEL ([id number]) 1985 F T Date Time Provider Department 11/24/23 JOCY SCHULTZ During your visit today, we recorded the following information about you: Trudi Crandall LPN 11/24/2023 1:14 PM Signed Pt seen in today AND states she was dx'd with pneumonia, was given prescriptions but states the Bromfed AND the spacer for the albuterol was not covered by her insurance. Pt states she isn't worried about the spacer but can not afford to pay out of pocket for Bromfed. She also states she has taken benzonatate perles in the past AND they are not effective. Pt asking for a different cough medication. Drug [facility] Torin. TREMAYNE Manrique Jessica, APRN.RESEARCH CHEMICAL ENGINEER 11/24/2023 1:25 PM Signed Reached out and spoke with patient. Patient has not had CXR I will be there any minute In terms of the cough medicine, Discussed she can use Robitussin or Delsym Allergies As of Date: 11/24/2023 Noted Allergy Reaction CATS 01/27/2009 Comments: SNEEZING,WATERY EYES DOG HAIR 01/27/2009 10 - Anaphylaxis Comments: SNEEZING, WATERY EYES SULFA (SULFONAMIDE ANTIBIOTICS) 06/03/2009 4 - Hives Date Reviewed: 11/24/2023 Reviewed by: Tarah Maciel MA - Fully Assessed Reason for Visit: Medication Problem [65] Cmt: Not covered by insurance Prescriptions as of 11/24/2023 - albuterol HFA (PROVENTIL HFA, VENTOLIN HFA) 90 mcg/actuation inhaler Inhale 2 Puffs as instructed every 4 hours as needed for wheezing/shortness of breath. - Inhalational Spacing Device 1 Device one time only for 1 dose. - predniSONE (DELTASONE) 10 mg tablet Take 4 tabs daily for 3 days, then 2 tabs daily for 3 days, then 1 tab daily for 3 days with food. - Brompheniramine-Pseudoeph- DM (BROMFED DM) 2-30-10 mg/5 mL syrup Take 5 mL by mouth four times a day as needed. - amoxicillin-clavulanate potassium (AUGMENTIN) 875-125 mg per tablet Take 1 tablet by mouth two times a day for 7 days. - OLANZapine (ZYPREXA) 5 mg tablet Take 1 tablet by mouth daily at bedtime for 4 days, THEN 0.5 tablets daily at bedtime for 4 days. Discontinue after 8 days.. - lurasidone (LATUDA) 20 mg tablet Take 1 tablet by mouth daily with food for 7 days. Take with atleast 300 calories a day. - lurasidone (LATUDA) 40 mg tablet Take 1 tablet by mouth daily with food. Start after 7 days of 20 mg and take medication with 300 calories of food. - gabapentin (NEURONTIN) 300 mg capsule Take 1 capsule by mouth every morning AND 2 capsules daily at bedtime. Do all this for 30 days. - dicyclomine (BENTYL) 10 mg capsule TAKE 1 CAPSULE THREE TIMES DAILY BEFORE MEALS - albuterol HFA (PROAIR HFA) 90 mcg/actuation inhaler Inhale 1-2 Puffs as instructed every 4 hours as needed. Problem List As Of Date 11/24/2023 Noted Resolved Tobacco use disorder [F17.200] 08/06/2008 06/06/2012 Galactorrhea not Associated with Childbirth [N6*11/29/2008 10/10/2009 Mastodynia [N64.4] 11/29/2008 10/10/2009 Poor Grth-Antepart [O36.5990] 08/20/2009 10/10/2009 DEPRESSION [F32.89] 10/28/2009 06/06/2012 Routine general medical examination at [facility]*02/19/2010 06/06/2012 Class: Chronic Routine gynecological examination [Z01.419] 02/19/2010 06/06/2012 Class: Chronic Other acne [L70.8] 06/30/2010 06/06/2012 Folliculitis [L73.9] 06/30/2010 06/06/2012 Pruritus [L29.9] 06/30/2010 06/06/2012 Eczematous dermatitis [L30.9] 06/30/2010 06/06/2012 Acne Urticata [L50.9] 06/30/2010 06/06/2012 Prior complicated by IUGR, antepartum*05/25/2012 02/22/2013 History of recurrent UTI (urinary tract infecti*05/25/2012 06/06/2012 History of hemorrhage, currently pre*05/25/2012 02/22/2013 History of depression [Z86.59] 05/25/2012 02/22/2013 History of asthma [Z87.09] 05/25/2012 02/22/2013 Nausea and vomiting in [O21.9] 05/25/2012 02/22/2013 Immunization due [Z23] 05/25/2012 02/22/2013 Rh negative state in antepartum period [O26.899*05/26/2012 02/22/2013 Supervision of high-risk [O09.90] 06/06/2012 02/22/2013 Tobacco use [Z72.0] 03/29/2013 IUD (intrauterine device) in place [Z97.5] 03/29/2013 08/23/2017 Depression [F32.A] 11/06/2013 Thoracic or lumbosacral neuritis or radiculitis*05/29/2014 Goiter [E04.9] 03/04/2015 ZAIRE (generalized anxiety disorder) [F41.1] 04/27/2021 Bipolar 2 disorder (HCC) [F31.81] 04/27/2021 Encounter Status:Closed by [facility] KRISTEL CHILEL ([id number]) 1985 F CHT Date Time Provider Department 11/24/23 JOCY SCHULTZ [facility] During your visit today, we recorded the following information about you: Jocy Schultz APRN.[facility] 11/24/2023 1:50 PM Signed CXR negative for pneumonia. Please notify patient. Continue medicines prescribed, follow up with DR. Conde if sx persist. Garret Lopez 11/24/2023 2:37 PM Signed Talked to patient and she verbally understands to cont meds and make an appt with PCP if symptoms continue. Garret Anthony Allergies As of Date: 11/24/2023 Noted Allergy Reaction CATS 01/27/2009 Comments: SNEEZING,WATERY EYES DOG HAIR 01/27/2009 10 - Anaphylaxis Comments: SNEEZING, WATERY EYES SULFA (SULFONAMIDE ANTIBIOTICS) 06/03/2009 4 - Hives Date Reviewed: 11/24/2023 Reviewed by: Tarah Maciel MA - Fully Assessed Reason for Visit: Results [95] Prescriptions as of 11/24/2023 - albuterol HFA (PROVENTIL HFA, VENTOLIN HFA) 90 mcg/actuation inhaler Inhale 2 Puffs as instructed every 4 hours as needed for wheezing/shortness of breath. - Inhalational Spacing Device 1 Device one time only for 1 dose. - predniSONE (DELTASONE) 10 mg tablet Take 4 tabs daily for 3 days, then 2 tabs daily for 3 days, then 1 tab daily for 3 days with food. - Brompheniramine-Pseudoeph- DM (BROMFED DM) 2-30-10 mg/5 mL syrup Take 5 mL by mouth four times a day as needed. - amoxicillin-clavulanate potassium (AUGMENTIN) 875-125 mg per tablet Take 1 tablet by mouth two times a day for 7 days. - OLANZapine (ZYPREXA) 5 mg tablet Take 1 tablet by mouth daily at bedtime for 4 days, THEN 0.5 tablets daily at bedtime for 4 days. Discontinue after 8 days.. - lurasidone (LATUDA) 20 mg tablet Take 1 tablet by mouth daily with food for 7 days. Take with atleast 300 calories a day. - lurasidone (LATUDA) 40 mg tablet Take 1 tablet by mouth daily with food. Start after 7 days of 20 mg and take medication with 300 calories of food. - gabapentin (NEURONTIN) 300 mg capsule Take 1 capsule by mouth every morning AND 2 capsules daily at bedtime. Do all this for 30 days. - dicyclomine (BENTYL) 10 mg capsule TAKE 1 CAPSULE THREE TIMES DAILY BEFORE MEALS - albuterol HFA (PROAIR HFA) 90 mcg/actuation inhaler Inhale 1-2 Puffs as instructed every 4 hours as needed. Problem List As Of Date 11/24/2023 Noted Resolved Tobacco use disorder [F17.200] 08/06/2008 06/06/2012 Galactorrhea not Associated with Childbirth [N6*11/29/2008 10/10/2009 Mastodynia [N64.4] 11/29/2008 10/10/2009 Poor Grth-Antepart [O36.5990] 08/20/2009 10/10/2009 DEPRESSION [F32.89] 10/28/2009 06/06/2012 Routine general medical examination at [facility]*02/19/2010 06/06/2012 Class: Chronic Routine gynecological examination [Z01.419] 02/19/2010 06/06/2012 Class: Chronic Other acne [L70.8] 06/30/2010 06/06/2012 Folliculitis [L73.9] 06/30/2010 06/06/2012 Pruritus [L29.9] 06/30/2010 06/06/2012 Eczematous dermatitis [L30.9] 06/30/2010 06/06/2012 Acne Urticata [L50.9] 06/30/2010 06/06/2012 Prior complicated by IUGR, antepartum*05/25/2012 02/22/2013 History of recurrent UTI (urinary tract infecti*05/25/2012 06/06/2012 History of hemorrhage, currently pre*05/25/2012 02/22/2013 History of depression [Z86.59] 05/25/2012 02/22/2013 History of asthma [Z87.09] 05/25/2012 02/22/2013 Nausea and vomiting in [O21.9] 05/25/2012 02/22/2013 Immunization due [Z23] 05/25/2012 02/22/2013 Rh negative state in antepartum period [O26.899*05/26/2012 02/22/2013 Supervision of high-risk [O09.90] 06/06/2012 02/22/2013 Tobacco use [Z72.0] 03/29/2013 IUD (intrauterine device) in place [Z97.5] 03/29/2013 08/23/2017 Depression [F32.A] 11/06/2013 Thoracic or lumbosacral neuritis or radiculitis*05/29/2014 Goiter [E04.9] 03/04/2015 ZAIRE (generalized anxiety disorder) [F41.1] 04/27/2021 Bipolar 2 disorder (HCC) [F31.81] 04/27/2021 Encounter Status:Closed by GARRET LOPEZ on 11/24/23 Normal [facility] Comprehensive metabolic 2000 panelon 11-24-2023 Albumin [Mass/Vol] 4.4 g/dL Normal 3.9-4.9 [facility] Comment on above: Order Comment: Speci men Type: BLOOD SPECIMEN Ordering Facility: [facility] Address: [address] [place] [address] Performed By: #### 2 4323-8, 29329-9, 48647-9 #### [facility] CLIA [id number] [address] [place] [address] [place] ALP [Catalytic activity/Vol] 88 U/L Normal 34-123 [facility] Comment on above: Order Comment: Speci men Type: BLOOD SPECIMEN Ordering Facility: [facility] Address: [address] [place] [address] Performed By: #### 2 4323-8, 13913-7, 57377-1 #### [facility] CLIA [id number] [address] [place] [address] [place] ALT [Catalytic activity/Vol] 41 U/L High 7-38 [facility] Comment on above: Order Comment: Speci men Type: BLOOD SPECIMEN Ordering Facility: [facility] Address: [address] [place] [address] Performed By: #### 2 4323-8, 05726-9, 23818-1 #### [facility] CLIA [id number] [address] [place] [address] [place] Anion gap [Moles/Vol] 11 mmol/L Normal 8-15 [facility] Comment on above: Order Comment: Speci men Type: BLOOD SPECIMEN Ordering Facility: [facility] Address: [address] [place] [address] Performed By: #### 2 4323-8, 41574-2, #### [facility] CLIA [id number] [address] [place] [address] [place] AST [Catalytic activity/Vol] 28 U/L Normal 13-35 [facility] Comment on above: Order Comment: Speci men Type: BLOOD SPECIMEN Ordering Facility: [facility] Address: [address] [place] [address] Performed By: #### 2 4323-8, 02513-4, #### [facility] CLIA [id number] [address] [place] [address] [place] Bilirubin [Mass/Vol] 0.3 mg/dL Normal 0.2-1.3 [facility] Comment on above: Order Comment: Speci men Type: BLOOD SPECIMEN Ordering Facility: [facility] Address: [address] [place] [address] Performed By: #### 2 4323-8, 61649-7, #### [facility] CLIA [id number] [address] [place] [address] [place] Calcium [Mass/Vol] 9.8 mg/dL Normal 8.5-10.2 [facility] Comment on above: Order Comment: Speci men Type: BLOOD SPECIMEN Ordering Facility: [facility] Address: [address] [place] [address] Performed By: #### 2 4323-8, 37978-1, #### [facility] CLIA [id number] [address] [place], [place] [address] [place] Chloride [Moles/Vol] 106 mmol/L Normal 98-107 [facility] Comment on above: Order Comment: Speci men Type: BLOOD SPECIMEN Ordering Facility: [facility] Address: [address] [place] [address] Performed By: #### 2 4323-8, 78090-0, #### [facility] CLIA [id number] [address] [place] [address] [place] CO2 [Moles/Vol] 20 mmol/L Low 22-30 [facility] Comment on above: Order Comment: Chaka lua Type: BLOOD SPECIMEN Ordering Facility: [facility] Address: [address] [place] [address] Performed By: #### 2 4323-8, 46822-1, 34504-9 #### [facility] CLIA [id number] [address] [place] [address] [place] Creatinine [Mass/Vol] 0.85 mg/dL Normal 0.58-0.96 [facility] Comment on above: Order Comment: Ruth Anni men Type: BLOOD SPECIMEN Ordering Facility: [facility] Address: [address] [place] [address] Performed By: #### 2 4323-8, 20463-4, #### [facility] CLIA [id number] [address] [place] [address] [place] Creatinine and Glomerular filtration rate.predicted panel (S/P/Bld) 90 mL/min/1.73m??? Normal >=60 [facility] Comment on above: Order Comment: Chaka lua Type: BLOOD SPECIMEN Ordering Facility: [facility] Address: [address] [place] [address] Result Comment: Kasey mated Glomerular Filtration Rate (eGFR) is calculated using the 2020 CKD-EPI creatinine equation. This equation utilizes serum creatinine, sex, and age as parameters. The creatinine assay has traceable calibration to isotope dilution-mass spectrometry. Refer to KDIGO guidelines for clinical interpretation. In patients with unstable renal function, e.g. those with acute kidney injury, the eGFR may not accurately reflect actual GFR. Performed By: #### 2 4323-8, 05143-4, 68770-2 #### [facility] CLIA [id number] [address] [place] [address] [place] Glucose [Mass/Vol] 113 mg/dL High 74-99 [facility] Comment on above: Order Comment: Chaka lua Type: BLOOD SPECIMEN Ordering Facility: [facility] Address: [address] [place] [address] Result Comment: The [place] Diabetes Association (ADA) provides guidance for cutoff values for fasting glucose and random glucose. The ADA defines fasting as no caloric intake for at least 8 hours. Fasting plasma glucose results between 100 to 125 mg/dL indicate increased risk for diabetes (prediabetes). Fasting plasma glucose results greater than or equal to 126 mg/dL meet the criteria for diagnosis of diabetes. In the absence of unequivocal hyperglycemia, results should be confirmed by repeat testing. In a patient with classic symptoms of hyperglycemia or hyperglycemic crisis, random plasma glucose results greater than or equal to 200 mg/dL meet the criteria for diagnosis of diabetes. Reference: Standards of Medical Care in Diabetes 2016, [place] [employer]. Diabetes Care. 2016.39(Suppl 1). Performed By: #### 2 4323-8, 49418-2, 63235-4 #### [facility] CLIA [id number] [address] [place] [address] [place] Potassium [Moles/Vol] 4.1 mmol/L Normal 3.7-5.1 [facility] Comment on above: Order Comment: Chaka lua Type: BLOOD SPECIMEN Ordering Facility: [facility] Address: [address] [place] [address] Performed By: #### 2 4323-8, 28267-8, 20908-8 #### [facility] CLIA [id number] [address] [place] [address] [place] Protein [Mass/Vol] 7.9 g/dL Normal 6.3-8.0 [facility] Comment on above: Order Comment: Chaka lua Type: BLOOD SPECIMEN Ordering Facility: [facility] Address: [address] [place] [address] Performed By: #### 2 4323-8, 26657-3, 82260-1 #### [facility] CLIA [id number] [address] [place] [address] [place] Sodium [Moles/Vol] 137 mmol/L Normal 136-144 [facility] Comment on above: Order Comment: Speci men Type: BLOOD SPECIMEN Ordering Facility: [facility] Address: [address] [place] [address] Performed By: #### 2 4323-8, 56286-3, #### [facility] CLIA [id number] [address] [place] [address] [place] Urea nitrogen [Mass/Vol] 10 mg/dL Normal 7-21 [facility] Comment on above: Order Comment: Speci men Type: BLOOD SPECIMEN Ordering Facility: [facility] Address: [address] [place] [address] Performed By: #### 2 4323-8, 38301-7, #### [facility] CLIA [id number] [address] [place] [address] [place] Lipid 1996 panelon 4 Cholesterol [Mass/Vol] 171 mg/dL Normal <200 [facility] Comment on above: Order Comment: Speci men Type: BLOOD SPECIMEN Ordering Facility: [facility] Address: [address] [place] [address] Result Comment: <200 mg/dL, Desirable 200-239 mg/dL, Borderline high >239 mg/dL, High Performed By: #### 2 4323-8, 00992-9, 42062-2 #### [facility] CLIA [id number] [address] [place] [address] [place] Cholesterol in HDL [Mass/Vol] 21 mg/dL Low >39 [facility] Comment on above: Order Comment: Speci men Type: BLOOD SPECIMEN Ordering Facility: [facility] Address: [address] [place] [address] Result Comment: 40-5 9 mg/dL, Acceptable >59 mg/dL, High: Negative risk factor for coronary heart disease <40 mg/dL, Low: Positive risk factor for coronary heart disease Performed By: #### 2 4323-8, 30089-9, #### [facility] CLIA [id number] [address] [place] [address] [place] Cholesterol in LDL [Mass/Vol] 89 mg/dL Normal <100 [facility] Comment on above: Order Comment: Chaka men Type: BLOOD SPECIMEN Ordering Facility: [facility] Address: [address] [place] [address] Result Comment: <100 mg/dL, Optimal 100-129 mg/dL, Near optimal/above optimal 130-159 mg/dL, Borderline high 160-189 mg/dL, High >189 mg/dL, Very high Secondary prevention optimal LDL Cholesterol levels are recommended to be < 70 mg/dL Performed By: #### 2 4323-8, 28693-5, #### [facility] CLIA [id number] [address] [place] [address] [place] Cholesterol in LDL/Cholesterol in HDL [Mass ratio] 4.24 {ratio} High <2.54 [facility] Comment on above: Order Comment: Ruth Anni men Type: BLOOD SPECIMEN Ordering Facility: [facility] Address: [address] [place] [address] Result Comment: Fabricio luis: 1. National Cholesterol Education Program ATP III Guideline At-A-Glance Quick Desk Reference: National Heart, Lung, and Blood [place]. National Institutes of Health. 2001: NIH Publication No. 01-3305. 2. An International Atherosclerosis Society position paper: global recommendations for the management of dyslipidemia: executive summary, Atherosclerosis. 2014: 232(2):410-413. Performed By: #### 2 4323-8, 68938-7, #### [facility] CLIA [id number] [address] [place] [address] [place] Cholesterol in VLDL [Mass/Vol] 61 mg/dL High <30 [facility] Comment on above: Order Comment: Ruth Anni men Type: BLOOD SPECIMEN Ordering Facility: [facility] Address: [address] [place] [address] Performed By: #### 2 4323-8, 37970-4, #### [facility] CLIA [id number] [address] [place] [address] [place] Cholesterol non HDL [Mass/Vol] 150 mg/dL High <130 [facility] Comment on above: Order Comment: Speci men Type: BLOOD SPECIMEN Ordering Facility: [facility] Address: [address] [place] [address] Result Comment: <130 mg/dL, Optimal 130-159 mg/dL, Near optimal/above optimal 160-189 mg/dL, Borderline high 190-219 mg/dL, High >219 mg/dL, Very high Secondary prevention optimal non HDL Cholesterol levels are recommended to be <100 mg/dL Performed By: #### 2 4323-8, 17163-3, #### [facility] CLIA [id number] [address] [place] [address] [place] Cholesterol.total/ Cholesterol in HDL [Mass ratio] 8.14 {ratio} High <5.10 [facility] Comment on above: Order Comment: Speci men Type: BLOOD SPECIMEN Ordering Facility: [facility] Address: [address] [place] [address] Performed By: #### 2 4323-8, 40046-2, #### [facility] CLIA [id number] [address] [place] [address] [place] FASTING TIME 12 hrs Normal [facility] Comment on above: Order Comment: Speci men Type: BLOOD SPECIMEN Ordering Facility: [facility] Address: [address] [place] [address] Performed By: #### 2 4323-8, 30940-8, #### [facility] CLIA [id number] [address] [place] [address] [place] Triglyceride [Mass/Vol] 307 mg/dL High <150 [facility] Comment on above: Order Comment: Speci men Type: BLOOD SPECIMEN Ordering Facility: [facility] Address: [address] [place] [address] Result Comment: <150 mg/dL, Normal 150-199 mg/dL, Borderline high 200-499 mg/dL, High >499 mg/dL, Very high Performed By: #### 2 4323-8, 70322-7, 57016-7 #### [facility] CLIA [id number] [address] [place] [address] [facility] XR CHEST 2V FRONTAL/LATon XR CHEST 2V FRONTAL/LAT * * *Final Report* * * DATE OF EXAM: Nov 24 2023 1:38PM WOX 5291 - XR CHEST 2V FRONTAL/LAT / PROCEDURE REASON: Acute cough * * * * Physician Interpretation * * * * EXAMINATION: CHEST RADIOGRAPH (2 VIEW FRONTAL and LATERAL) CLINICAL HISTORY: Acute cough MQ: XC2_6 EXAM DATE/TIME: 11/24/2023 1:38 PM COMPARISON: No relevant prior studies available. RESULT: Lines, tubes, and devices: None. Lungs and pleura: No consolidation. No lung mass. No pleural effusion. No pneumothorax. Cardiomediastinal silhouette: Normal cardiomediastinal silhouette. Bones and soft tissues: Unremarkable. IMPRESSION: No acute radiographic abnormality. Transport Manager: LAMBERT Transcribe Date/Time: Nov 24 2023 1:39P Dictated by : COLT GRIFFIN MD This examination was interpreted and the report reviewed and electronically signed by: COLT GRIFFIN MD on Nov 24 2023 1:40PM EST [id number] Normal [facility] XR Chest PA and Lateralon IMPRESSION: No acute radiographic abnormality. Transport Manager: PSCB Transcribe Date/Time: Nov 24 2023 1:39P Dictated by : COLT GRIFFIN MD This examination was interpreted and the report reviewed and electronically signed by: COLT GRIFFIN MD on Nov 24 2023 1:40PM EST DIVISION OF RADIOLOGY * * *Final Report* * * DATE OF EXAM: Nov 24 2023 1:38PM WOX 5291 - XR CHEST 2V FRONTAL/LAT / PROCEDURE REASON: Acute cough * * * * Physician Interpretation * * * * EXAMINATION: CHEST RADIOGRAPH (2 VIEW FRONTAL & LATERAL) CLINICAL HISTORY: Acute cough MQ: XC2_6 EXAM DATE/TIME: 11/24/2023 1:38 PM COMPARISON: No relevant prior studies available. RESULT: Lines, tubes, and devices: None. Lungs and pleura: No consolidation. No lung mass. No pleural effusion. No pneumothorax. Cardiomediastinal silhouette: Normal cardiomediastinal silhouette. Bones and soft tissues: Unremarkable. DIVISION OF RADIOLOGY Provider, [facility] Herminio [facility] - 11/24/2023 * * *Final Report* * * DATE OF EXAM: Nov 24 2023 1:38PM WOX 5291 - XR CHEST 2V FRONTAL/LAT / PROCEDURE REASON: Acute cough * * * * Physician Interpretation * * * * EXAMINATION: CHEST RADIOGRAPH (2 VIEW FRONTAL & LATERAL) CLINICAL HISTORY: Acute cough MQ: XC2_6 EXAM DATE/TIME: 11/24/2023 1:38 PM COMPARISON: No relevant prior studies available. RESULT: Lines, tubes, and devices: None. Lungs and pleura: No consolidation. No lung mass. No pleural effusion. No pneumothorax. Cardiomediastinal silhouette: Normal cardiomediastinal silhouette. Bones and soft tissues: Unremarkable. IMPRESSION IMPRESSION: No acute radiographic abnormality. Transport Manager: PSCRomulo Transcribe Date/Time: Nov 24 2023 1:39P Dictated by : COLT GRIFFIN MD This examination was interpreted and the report reviewed and electronically signed by: COLT GRIFFIN MD on Nov 24 2023 1:40PM [facility] Radiology Study observation (narrative) [facility] XR Chest PA and LateralOrder ed By: [facility] CNPN Telephone (PSWSTR) -- KRISTEL CHILEL ([id number]) 1985 F T Date Time Provider Department 11/21/23 KINSEY LEVINE PSWSTR During your visit today, we recorded the following information about you: Marcial Mcgovern LPN 11/21/2023 3:42 PM Signed Pt called in to check if okay to wait a couple days to get fasting blood work done. Pt reports not feeling well and running a fever. Pt reports she was to have blood work done 30 days from her last blood work. Per Kinsey's nurse that will be fine and nurse will let Kinsey know. Pt will need to get lab work done this week. Pt notified with this information and will get done this week. Marcial Mcgovern LPN Allergies As of Date: 11/21/2023 Noted Allergy Reaction CATS 01/27/2009 Comments: SNEEZING,WATERY EYES DOG HAIR 01/27/2009 10 - Anaphylaxis Comments: SNEEZING, WATERY EYES SULFA (SULFONAMIDE ANTIBIOTICS) 06/03/2009 4 - Hives Date Reviewed: 09/16/2023 Reviewed by: Portia Mariano LPN - Fully Assessed Reason for Visit: lab question/reply [Other] Prescriptions as of 11/21/2023 - OLANZapine (ZYPREXA) 5 mg tablet Take 1 tablet by mouth daily at bedtime for 4 days, THEN 0.5 tablets daily at bedtime for 4 days. Discontinue after 8 days.. - lurasidone (LATUDA) 20 mg tablet Take 1 tablet by mouth daily with food for 7 days. Take with atleast 300 calories a day. - lurasidone (LATUDA) 40 mg tablet Take 1 tablet by mouth daily with food. Start after 7 days of 20 mg and take medication with 300 calories of food. - gabapentin (NEURONTIN) 300 mg capsule Take 1 capsule by mouth every morning AND 2 capsules daily at bedtime. Do all this for 30 days. - dicyclomine (BENTYL) 10 mg capsule TAKE 1 CAPSULE THREE TIMES DAILY BEFORE MEALS - albuterol HFA (PROAIR HFA) 90 mcg/actuation inhaler Inhale 1-2 Puffs as instructed every 4 hours as needed. Problem List As Of Date 11/21/2023 Noted Resolved Tobacco use disorder [F17.200] 08/06/2008 06/06/2012 Galactorrhea not Associated with Childbirth [N6*11/29/2008 10/10/2009 Mastodynia [N64.4] 11/29/2008 10/10/2009 Poor Grth-Antepart [O36.5990] 08/20/2009 10/10/2009 DEPRESSION [F32.89] 10/28/2009 06/06/2012 Routine general medical examination at [facility]*02/19/2010 06/06/2012 Class: Chronic Routine gynecological examination [Z01.419] 02/19/2010 06/06/2012 Class: Chronic Other acne [L70.8] 06/30/2010 06/06/2012 Folliculitis [L73.9] 06/30/2010 06/06/2012 Pruritus [L29.9] 06/30/2010 06/06/2012 Eczematous dermatitis [L30.9] 06/30/2010 06/06/2012 Acne Urticata [L50.9] 06/30/2010 06/06/2012 Prior complicated by IUGR, antepartum*05/25/2012 02/22/2013 History of recurrent UTI (urinary tract infecti*05/25/2012 06/06/2012 History of hemorrhage, currently pre*05/25/2012 02/22/2013 History of depression [Z86.59] 05/25/2012 02/22/2013 History of asthma [Z87.09] 05/25/2012 02/22/2013 Nausea and vomiting in [O21.9] 05/25/2012 02/22/2013 Immunization due [Z23] 05/25/2012 02/22/2013 Rh negative state in antepartum period [O26.899*05/26/2012 02/22/2013 Supervision of high-risk [O09.90] 06/06/2012 02/22/2013 Tobacco use [Z72.0] 03/29/2013 IUD (intrauterine device) in place [Z97.5] 03/29/2013 08/23/2017 Depression [F32.A] 11/06/2013 Thoracic or lumbosacral neuritis or radiculitis*05/29/2014 Goiter [E04.9] 03/04/2015 ZAIRE (generalized anxiety disorder) [F41.1] 04/27/2021 Bipolar 2 disorder (HCC) [F31.81] 04/27/2021 Encounter Status:Closed by MARCIAL MCGOVERN on 11/21/23 [facility] 10-14-2023 [facility] Telephone (PSWSTR) -- CHILELKRISTEL ([id number]) 1985 F T Date Time Provider Department 10/14/23 KINSEY LEVINE PSWSTR During your visit today, we recorded the following information about you: Sylvester Cuellar RN 10/14/2023 8:41 AM Signed Patient reviewed lab results on and is anxious with results. Scheduled for follow up on 10/21/2023 with Kinsey. Patient asking for provider to review and advise prior to distance health visit. ANTONIO White Nishi J, [employer] 10/14/2023 5:44 PM Signed Addressed in a separate [employer] message. Allergies As of Date: 10/14/2023 Noted Allergy Reaction CATS 01/27/2009 Comments: SNEEZING,WATERY EYES DOG HAIR 01/27/2009 10 - Anaphylaxis Comments: SNEEZING, WATERY EYES SULFA (SULFONAMIDE ANTIBIOTICS) 06/03/2009 4 - Hives Date Reviewed: 09/16/2023 Reviewed by: Portia Mariano LPN - Fully Assessed Reason for Visit: Results [95] Prescriptions as of 10/15/2023 - OLANZapine (ZYPREXA) 15 mg tablet Take 0.5 tablets by mouth daily at bedtime. - prazosin (MINIPRESS) 1 mg cap Take 1 capsule by mouth daily at bedtime. - gabapentin (NEURONTIN) 300 mg capsule Take 1 capsule by mouth three times a day for 60 days. - diazePAM (VALIUM) 5 mg tablet Take 1 tablet by mouth once daily as needed for anxiety for up to 30 days. - dicyclomine (BENTYL) 10 mg capsule TAKE 1 CAPSULE THREE TIMES DAILY BEFORE MEALS - albuterol HFA (PROAIR HFA) 90 mcg/actuation inhaler Inhale 1-2 Puffs as instructed every 4 hours as needed. Problem List As Of Date 10/14/2023 Noted Resolved Tobacco use disorder [F17.200] 08/06/2008 06/06/2012 Galactorrhea not Associated with Childbirth [N6*11/29/2008 10/10/2009 Mastodynia [N64.4] 11/29/2008 10/10/2009 Poor Grth-Antepart [O36.5990] 08/20/2009 10/10/2009 DEPRESSION [F32.89] 10/28/2009 06/06/2012 Routine general medical examination at [facility]*02/19/2010 06/06/2012 Class: Chronic Routine gynecological examination [Z01.419] 02/19/2010 06/06/2012 Class: Chronic Other acne [L70.8] 06/30/2010 06/06/2012 Folliculitis [L73.9] 06/30/2010 06/06/2012 Pruritus [L29.9] 06/30/2010 06/06/2012 Eczematous dermatitis [L30.9] 06/30/2010 06/06/2012 Acne Urticata [L50.9] 06/30/2010 06/06/2012 Prior complicated by IUGR, antepartum*05/25/2012 02/22/2013 History of recurrent UTI (urinary tract infecti*05/25/2012 06/06/2012 History of hemorrhage, currently pre*05/25/2012 02/22/2013 History of depression [Z86.59] 05/25/2012 02/22/2013 History of asthma [Z87.09] 05/25/2012 02/22/2013 Nausea and vomiting in [O21.9] 05/25/2012 02/22/2013 Immunization due [Z23] 05/25/2012 02/22/2013 Rh negative state in antepartum period [O26.899*05/26/2012 02/22/2013 Supervision of high-risk [O09.90] 06/06/2012 02/22/2013 Tobacco use [Z72.0] 03/29/2013 IUD (intrauterine device) in place [Z97.5] 03/29/2013 08/23/2017 Depression [F32.A] 11/06/2013 Thoracic or lumbosacral neuritis or radiculitis*05/29/2014 Goiter [E04.9] 03/04/2015 ZAIRE (generalized anxiety disorder) [F41.1] 04/27/2021 Bipolar 2 disorder (HCC) [F31.81] 04/27/2021 Encounter Status:Closed by SYLVESTER CUELLAR on 10/15/23 Normal [facility] CBC W Auto Differential pane l (Bld)on 10-13-2023 Basophils (Bld) [#/Vol] 0.08 10*3/uL Normal <0.11 [facility] Comment on above: Order Comment: Speci men Type: BLOOD SPECIMEN Ordering Facility: [facility] Address: [address] [place] [address] Performed By: #### 2 4323-8, 40220-8, 99650-1 #### [facility] CLIA [id number] [address] [place] [address] [place] Basophils/100 WBC (Bld) 0.8 % Normal [facility] Comment on above: Order Comment: Speci men Type: BLOOD SPECIMEN Ordering Facility: [facility] Address: [address] [place] [address] Performed By: #### 2 4323-8, 71244-8, #### [facility] CLIA [id number] [address] [place] [address] [place] Differential cell count method Nom (Bld) Auto Normal [facility] Comment on above: Order Comment: Speci men Type: BLOOD SPECIMEN Ordering Facility: [facility] Address: [address] [place] [address] Performed By: #### 2 4323-8, 03116-1, #### [facility] CLIA [id number] [address] [place] [address] [place] Eosinophils (Bld) [#/Vol] 0.22 10*3/uL Normal <0.46 [facility] Comment on above: Order Comment: Speci men Type: BLOOD SPECIMEN Ordering Facility: [facility] Address: [address] [place] [address] Performed By: #### 2 4323-8, 72560-7, #### [facility] CLIA [id number] [address] [place], [place] [id number] [place] Eosinophils/100 WBC (Bld) 2.3 % Normal [facility] Comment on above: Order Comment: Speci men Type: BLOOD SPECIMEN Ordering Facility: [facility] Address: [address] [place] [address] Performed By: #### 2 4323-8, 50996-9, #### [facility] CLIA [id number] [address] [place] [address] [place] Erythrocyte distribution width (RBC) [Ratio] 12.6 % Normal 11.5-15.0 [facility] Comment on above: Order Comment: Speci men Type: BLOOD SPECIMEN Ordering Facility: [facility] Address: [address] [place] [address] Performed By: #### 2 4323-8, 02841-6, 89755-0 #### [facility] CLIA [id number] [address] [place] [address] [place] Hematocrit (Bld) [Volume fraction] 50.1 % High 36.0-46.0 [facility] Comment on above: Order Comment: Speci men Type: BLOOD SPECIMEN Ordering Facility: [facility] Address: [address] [place] [address] Performed By: #### 2 4323-8, 40190-0, 31347-3 #### [facility] CLIA [id number] [address] [place] [address] [place] Hemoglobin (Bld) [Mass/Vol] 15.8 g/dL High 11.5-15.5 [facility] Comment on above: Order Comment: Speci men Type: BLOOD SPECIMEN Ordering Facility: [facility] Address: [address] [place] [address] Performed By: #### 2 4323-8, 74414-8, 93649-1 #### [facility] CLIA [id number] [address] [place] [address] [place] Immature granulocytes (Bld) [#/Vol] 0.03 10*3/uL Normal <0.10 [facility] Comment on above: Order Comment: Speci men Type: BLOOD SPECIMEN Ordering Facility: [facility] Address: [address] [place] [address] Performed By: #### 2 4323-8, 00187-4, 12124-3 #### [facility] CLIA [id number] [address] [place] [address] [place] Immature granulocytes/100 WBC (Bld) 0.3 % Normal [facility] Comment on above: Order Comment: Speci men Type: BLOOD SPECIMEN Ordering Facility: [facility] Address: [address] [place] [address] Performed By: #### 2 4323-8, 58722-1, 96477-1 #### [facility] CLIA [id number] [address] [place] [address] [place] Lymphocytes (Bld) [#/Vol] 2.54 10*3/uL Normal 1.00-4.00 [facility] Comment on above: Order Comment: Speci men Type: BLOOD SPECIMEN Ordering Facility: [facility] Address: [address] [place] [address] Performed By: #### 2 4323-8, 95099-0, 38533-5 #### [facility] CLIA [id number] [address] [place] [address] [place] Lymphocytes/100 WBC (Bld) 26.1 % Normal [facility] Comment on above: Order Comment: Speci men Type: BLOOD SPECIMEN Ordering Facility: [facility] Address: [address] [place] [address] Performed By: #### 2 4323-8, 69696-1, 25232-0 #### [facility] CLIA [id number] [address] [place] [address] [place] MCH (RBC) [Entitic mass] 29.9 pg Normal 26.0-34.0 [facility] Comment on above: Order Comment: Speci men Type: BLOOD SPECIMEN Ordering Facility: [facility] Address: [address] [place] [address] Performed By: #### 2 4323-8, 07857-9, 84094-0 #### [facility] CLIA [id number] [address] [place] [address] [place] MCHC (RBC) [Mass/Vol] 31.5 g/dL Normal 30.5-36.0 [facility] Comment on above: Order Comment: Speci men Type: BLOOD SPECIMEN Ordering Facility: [facility] Address: [address] [place] [address] Performed By: #### 2 4323-8, 02399-6, 24463-6 #### [facility] CLIA [id number] [address] [place] [address] [place] MCV (RBC) [Entitic vol] 94.7 fL Normal 80.0-100.0 [facility] Comment on above: Order Comment: Speci men Type: BLOOD SPECIMEN Ordering Facility: [facility] Address: [address] [place] [address] Performed By: #### 2 4323-8, 98773-0, 47096-3 #### [facility] CLIA [id number] [address] [place] [address] [place] Monocytes (Bld) [#/Vol] 0.47 10*3/uL Normal <0.87 [facility] Comment on above: Order Comment: Speci men Type: BLOOD SPECIMEN Ordering Facility: [facility] Address: [address] [place] [address] Performed By: #### 2 4323-8, 38476-5, 05547-4 #### [facility] CLIA [id number] [address] [place] [address] [place] Monocytes/100 WBC (Bld) 4.8 % Normal [facility] Comment on above: Order Comment: Speci men Type: BLOOD SPECIMEN Ordering Facility: [facility] Address: [address] [place] [address] Performed By: #### 2 4323-8, 08473-8, #### [facility] CLIA [id number] [address] [place] [address] [place] Neutrophils (Bld) [#/Vol] 6.41 10*3/uL Normal 1.45-7.50 [facility] Comment on above: Order Comment: Speci men Type: BLOOD SPECIMEN Ordering Facility: [facility] Address: [address] [place] [address] Performed By: #### 2 4323-8, 74032-6, #### [facility] CLIA [id number] [address] [place] [address] [place] Neutrophils/100 WBC (Bld) 65.7 % Normal [facility] Comment on above: Order Comment: Speci men Type: BLOOD SPECIMEN Ordering Facility: [facility] Address: [address] [place] [address] Performed By: #### 2 4323-8, 20218-5, #### [facility] CLIA [id number] [address] [place] [address] [place] Nucleated RBC (Bld) [#/Vol] 10*3/uL Normal <0.01 [facility] Comment on above: Order Comment: Speci men Type: BLOOD SPECIMEN Ordering Facility: [facility] Address: [address] [place] [address] Performed By: #### 2 4323-8, 19524-3, 66135-3 #### [facility] CLIA [id number] [address] [place] [address] [place] Nucleated RBC/100 WBC (Bld) [Ratio] 0.0 /100 WBC Normal [facility] Comment on above: Order Comment: Speci men Type: BLOOD SPECIMEN Ordering Facility: [facility] Address: [address] [place] [address] Performed By: #### 2 4323-8, 69907-8, 92119-0 #### [facility] CLIA [id number] [address] [place] [address] [place] Platelet mean volume (Bld) [Entitic vol] 12.4 fL Normal 9.0-12.7 [facility] Comment on above: Order Comment: Speci men Type: BLOOD SPECIMEN Ordering Facility: [facility] Address: [address] [place] [address] Performed By: #### 2 4323-8, 88990-6, 74163-3 #### [facility] CLIA [id number] [address] [place] [address] [place] Platelets (Bld) [#/Vol] 165 10*3/uL Normal 150-400 [facility] Comment on above: Order Comment: Speci men Type: BLOOD SPECIMEN Ordering Facility: [facility] Address: [address] [place] [address] Performed By: #### 2 4323-8, 46968-5, #### [facility] CLIA [id number] [address] [place], [place] [id number] [place] RBC (Bld) [#/Vol] 5.29 10*6/uL High 3.90-5.20 [facility] Comment on above: Order Comment: Speci men Type: BLOOD SPECIMEN Ordering Facility: [facility] Address: [address] [place] [address] Performed By: #### 2 4323-8, 55064-0, #### [facility] CLIA [id number] [address] [place], [place] [id number] [place] WBC (Bld) [#/Vol] 9.75 10*3/uL Normal 3.70-11.00 [facility] Comment on above: Order Comment: Speci men Type: BLOOD SPECIMEN Ordering Facility: [facility] Address: [address] [place] [address] Performed By: #### 2 4323-8, 26000-4, #### [facility] CLIA [id number] [address] [place] [address] [place] Comprehensive metabolic 2000 panelon 10-13-2023 Albumin [Mass/Vol] 4.3 g/dL Normal 3.9-4.9 [facility] Comment on above: Order Comment: Speci men Type: BLOOD SPECIMEN Ordering Facility: [facility] Address: [address] [place] [address] Performed By: #### 2 4323-8, 33745-3, #### [facility] CLIA [id number] [address] [place] [address] [place] ALP [Catalytic activity/Vol] 96 U/L Normal 34-123 [facility] Comment on above: Order Comment: Speci men Type: BLOOD SPECIMEN Ordering Facility: [facility] Address: [address] [place] [address] Performed By: #### 2 4323-8, 25208-6, #### [facility] CLIA [id number] [address] [place] [address] [place] ALT [Catalytic activity/Vol] 71 U/L High 7-38 [facility] Comment on above: Order Comment: Speci men Type: BLOOD SPECIMEN Ordering Facility: [facility] Address: [address] [place] [address] Performed By: #### 2 4323-8, 42564-1, #### [facility] CLIA [id number] [address] [place], [place] [id number] [place] Anion gap [Moles/Vol] 12 mmol/L Normal 9-18 [facility] Comment on above: Order Comment: Speci men Type: BLOOD SPECIMEN Ordering Facility: [facility] Address: [address] [place] [address] Performed By: #### 2 4323-8, 03884-7, 57899-4 #### [facility] CLIA [id number] [address] [place] [address] [place] AST [Catalytic activity/Vol] 41 U/L High 13-35 [facility] Comment on above: Order Comment: Speci men Type: BLOOD SPECIMEN Ordering Facility: [facility] Address: [address] [place] [address] Performed By: #### 2 4323-8, 58197-5, #### [facility] CLIA [id number] [address] [place] [address] [place] Bilirubin [Mass/Vol] 0.3 mg/dL Normal 0.2-1.3 [facility] Comment on above: Order Comment: Speci men Type: BLOOD SPECIMEN Ordering Facility: [facility] Address: [address] [place] [address] Performed By: #### 2 4323-8, 66200-0, #### [facility] CLIA [id number] [address] [place] [address] [place] Calcium [Mass/Vol] 10.0 mg/dL Normal 8.5-10.2 [place] [facility] Comment on above: Order Comment: Speci men Type: BLOOD SPECIMEN Ordering Facility: [facility] Address: [address] [place] [address] Performed By: #### 2 4323-8, 29012-8, 69758-6 #### [facility] CLIA [id number] [address] [place] [address] [place] Chloride [Moles/Vol] 104 mmol/L Normal 97-105 [facility] Comment on above: Order Comment: Speci men Type: BLOOD SPECIMEN Ordering Facility: [facility] Address: [address] [place] [address] Performed By: #### 2 4323-8, 44812-0, 03845-1 #### [facility] CLIA [id number] [address] [place] [address] [place] CO2 [Moles/Vol] 23 mmol/L Normal 22-30 [facility] Comment on above: Order Comment: Speci men Type: BLOOD SPECIMEN Ordering Facility: [facility] Address: [address] [place] [address] Performed By: #### 2 4323-8, 34258-3, 55546-3 #### [facility] CLIA [id number] [address] [place] [address] [place] Creatinine [Mass/Vol] 0.90 mg/dL Normal 0.58-0.96 [facility] Comment on above: Order Comment: Speci men Type: BLOOD SPECIMEN Ordering Facility: [facility] Address: [address] [place] [address] Performed By: #### 2 4323-8, 40931-9, 40684-2 #### [facility] CLIA [id number] [address] [place] [address] [place] Creatinine and Glomerular filtration rate.predicted panel (S/P/Bld) 84 mL/min/1.73m??? Normal >=60 [facility] Comment on above: Order Comment: Speci men Type: BLOOD SPECIMEN Ordering Facility: [facility] Address: [address] [place] [address] Result Comment: Kasey mated Glomerular Filtration Rate (eGFR) is calculated using the 2020 CKD-EPI creatinine equation. This equation utilizes serum creatinine, sex, and age as parameters. The creatinine assay has traceable calibration to isotope dilution-mass spectrometry. Refer to KDIGO guidelines for clinical interpretation. In patients with unstable renal function, e.g. those with acute kidney injury, the eGFR may not accurately reflect actual GFR. Performed By: #### 2 4323-8, 20940-0, #### [facility] CLIA [id number] [address] [address] [place] Glucose [Mass/Vol] 118 mg/dL High 74-99 [facility] Comment on above: Order Comment: Chaka lua Type: BLOOD SPECIMEN Ordering Facility: [facility] Address: [address] [place] [address] Result Comment: The [place] Diabetes Association (ADA) provides guidance for cutoff values for fasting glucose and random glucose. The ADA defines fasting as no caloric intake for at least 8 hours. Fasting plasma glucose results between 100 to 125 mg/dL indicate increased risk for diabetes (prediabetes). Fasting plasma glucose results greater than or equal to 126 mg/dL meet the criteria for diagnosis of diabetes. In the absence of unequivocal hyperglycemia, results should be confirmed by repeat testing. In a patient with classic symptoms of hyperglycemia or hyperglycemic crisis, random plasma glucose results greater than or equal to 200 mg/dL meet the criteria for diagnosis of diabetes. Reference: Standards of Medical Care in Diabetes 2016, [place] Diabetes Association. Diabetes Care. 2016.39(Suppl 1). Performed By: #### 2 4323-8, 37688-8, #### [facility] CLIA [id number] [address] [place], [place] [id number] [place] Potassium [Moles/Vol] 4.2 mmol/L Normal 3.7-5.1 [facility] Comment on above: Order Comment: Chaka lua Type: BLOOD SPECIMEN Ordering Facility: [facility] Address: [address] [place] [address] Performed By: #### 2 4323-8, 77815-3, #### [facility] CLIA [id number] [address] [place] [id number] [place] Protein [Mass/Vol] 7.9 g/dL Normal 6.3-8.0 [facility] Comment on above: Order Comment: Speci men Type: BLOOD SPECIMEN Ordering Facility: [facility] Address: [address] [place] [address] Performed By: #### 2 4323-8, 07756-2, 88192-9 #### [facility] CLIA [id number] [address] [place] [address] [place] Sodium [Moles/Vol] 139 mmol/L Normal 136-144 [facility] Comment on above: Order Comment: Speci men Type: BLOOD SPECIMEN Ordering Facility: [facility] Address: [address] [place] [address] Performed By: #### 2 4323-8, 80084-6, #### [facility] CLIA [id number] [address] [place] [address] [place] Urea nitrogen [Mass/Vol] 11 mg/dL Normal 7-21 [facility] Comment on above: Order Comment: Speci men Type: BLOOD SPECIMEN Ordering Facility: [facility] Address: [address] [place] [address] Performed By: #### 2 4323-8, 04868-8, 26842-4 #### [facility] CLIA [id number] [address] [place] [address] [place] DHEA-S [facility] 10-13-2023 DHEA-S [Mass/Vol] 122.8 ug/dL Normal 60.9-337.0 [facility] Comment on above: Order Comment: Speci men Type: BLOOD SPECIMEN Ordering Facility: [facility] Address: [address] [place] [address] Result Comment: Refe rence ranges are age and gender specific. For additional information, reference range tables can be found in the laboratory test directory. The normal values are based on the following source: Dehydroepiandrosterone sulfate (DHEA S) [package insert V 17.0 Malagasy]. [facility], [place], [place]: January 2013. Performed By: #### 2 4323-8, 56456-7, 90107-5 #### [facility] CLIA [id number] [address] [place] [address] [place] Estradiol SerPl-mCncon 10-12 E2 [Mass/Vol] 100 pg/mL Normal [facility] Comment on above: Order Comment: Speci men Type: BLOOD SPECIMEN Ordering Facility: [facility] Address: [address] [place] [address] Result Comment: This test is not suitable for patients receiving treatment with the drug Fulvestrant (Faslodex). The drug causes an interference leading to falsely elevated estradiol results. Menstrual cycle Estradiol reference ranges: Follicular : < 234 pg/mL Ovulation : 41 to 398 pg/mL Luteal : < 342 pg/mL Estradiol reference ranges vary by gestational period: First trimester : 154 to 3243 pg/mL Second trimester : 1561 to 14491 pg/mL Third trimester : 8285 to >41948 pg/mL Post-menopausal Estradiol reference range: < 41 pg/mL Reference: 1. Estradiol - E2 (Estradiol III) [package insert V 3.0 Malagasy]. [facility], [place], [place], November 2015. Performed By: #### 2 4323-8, 99745-1, 80027-7 #### [facility] CLIA [id number] [address] [place] [address] [place] FSH SerPl-aCncon 10-13-2023 Follitropin Qn 7.5 m[IU]/mL Normal See comment [facility] Comment on above: Order Comment: Speci men Type: BLOOD SPECIMEN Ordering Facility: [facility] Address: [address] [place] [address] Result Comment: Refe rence range: Follicular: 3.5-12.5 mIU/mL Ovulation: 4.7-21.5 mIU/mL Luteal: 1.7-7.7 mIU/mL Postmenopausal: 25.8-134.8 mIU/mL Performed By: #### 2 4323-8, 60318-1, 31583-3 #### [facility] CLIA [id number] [address] [place] [address] [place] HYDROXYPROGESTERONE-17on 17-HYDROXYPROGESTE ELLIS QUANTITATIVE BY HPLC-MS/MS, SERUM OR PLASMA 127.75 ng/dL Normal <=206.00 [facility] Comment on above: Order Comment: Speci men Type: BLOOD SPECIMEN Ordering Facility: [facility] Address: [address] [place] [address] Result Comment: INTERPRETIVE INFORMATION for 17-Hydroxyprogesterone in females: Follicular 15 to 70 ng/dL Luteal 35 to 290 ng/dL REFERENCE INTERVAL: 17-Hydroxyprogesterone Qnt, HPLC-MS/MS Access complete set of age- and/or gender-specific reference intervals for this test in the [employer] Test Directory ([employer]). This test was developed and its performance characteristics determined by [facility]. It has not been cleared or approved by the US Food and Drug Administration. This test was performed in a CLIA certified laboratory and is intended for clinical purposes. Performed By: [facility] [address] [place] [address] [employer]: Mo Burgos MD, PhD CLIA Number: [id number] Performed By: #### 2 4323-8, 20368-7, 69365-3 #### [facility] CLIA [id number] [address] [place] [address] [place] HbA1c (Bld)on 10-13-2023 Average glucose Estimated from glycated hemoglobin (Bld) [Mass/Vol] 126 mg/dL Normal [facility] Comment on above: Order Comment: Speci men Type: BLOOD SPECIMEN Ordering Facility: [facility] Address: [address] [place] [address] Result Comment: eAG: (Estimated average glucose) is a calculated value from HgbA1c and is manufacturer's representative of the average blood glucose level in the last 2-3 month period. Performed By: #### 2 4323-8, 68921-9, 05907-5 #### [facility] CLIA [id number] [address] [place] [address] [place] HbA1c (Bld) [Mass fraction] 6.0 % High 4.3-5.6 [facility] Comment on above: Order Comment: Chaka lua Type: BLOOD SPECIMEN Ordering Facility: [facility] Address: [address] [place] [address] Result Comment: [place] Diabetes Association guidelines indicate that patients with HgbA1c in the range 5.7-6.4% are at increased risk for development of diabetes, and intervention by lifestyle modification may be beneficial. HgbA1c greater or equal to 6.5% is considered diagnostic of diabetes. Performed By: #### 2 4323-8, 67382-9, 59249-1 #### [facility] CLIA [id number] [address] [place] [address] [place] Lipid 1996 panelon 4 Cholesterol [Mass/Vol] 193 mg/dL Normal <200 [facility] Comment on above: Order Comment: Chaka lua Type: BLOOD SPECIMEN Ordering Facility: [facility] Address: [address] [place] [address] Result Comment: <200 mg/dL, Desirable 200-239 mg/dL, Borderline high >239 mg/dL, High Performed By: #### 2 4323-8, 57062-6, #### [facility] CLIA [id number] [address] [place] [address] [place] Cholesterol in HDL [Mass/Vol] 22 mg/dL Low >39 [facility] Comment on above: Order Comment: Chaka lua Type: BLOOD SPECIMEN Ordering Facility: [facility] Address: [address] [place] [address] Result Comment: 40-5 9 mg/dL, Acceptable >59 mg/dL, High: Negative risk factor for coronary heart disease <40 mg/dL, Low: Positive risk factor for coronary heart disease Performed By: #### 2 4323-8, 62953-1, 38415-9 #### [facility] CLIA [id number] [address] [place] [address] [place] Cholesterol in LDL [Mass/Vol] 93 mg/dL Normal <100 [facility] Comment on above: Order Comment: Chaka lua Type: BLOOD SPECIMEN Ordering Facility: [facility] Address: [address] [place] [address] Result Comment: <100 mg/dL, Optimal 100-129 mg/dL, Near optimal/above optimal 130-159 mg/dL, Borderline high 160-189 mg/dL, High >189 mg/dL, Very high Secondary prevention optimal LDL Cholesterol levels are recommended to be < 70 mg/dL Performed By: #### 2 4323-8, 73911-5, 07831-3 #### [facility] CLIA [id number] [address] [place] [address] [place] Cholesterol in LDL/Cholesterol in HDL [Mass ratio] 4.23 {ratio} High <2.54 [facility] Comment on above: Order Comment: Chaka lua Type: BLOOD SPECIMEN Ordering Facility: [facility] Address: [address] [place] [address] Result Comment: Refe rence: 1. National Cholesterol Education Program ATP III Guideline At-A-Glance Quick Desk Reference: National Heart, Lung, and Blood Delco. National Institutes of Health. 2001: NIH Publication No. 01-3305. 2. An International Atherosclerosis Society position paper: global recommendations for the management of dyslipidemia: executive summary, Atherosclerosis. 2014: 232(2):410-413. Performed By: #### 2 4323-8, 69069-0, 28411-9 #### [facility] CLIA [id number] [address] [place] [address] [place] Cholesterol in VLDL [Mass/Vol] 78 mg/dL High <30 [facility] Comment on above: Order Comment: Chaka lua Type: BLOOD SPECIMEN Ordering Facility: [facility] Address: [address] [place] [address] Performed By: #### 2 4323-8, 59573-1, 79681-9 #### [facility] CLIA [id number] [address] [place] [address] [place] Cholesterol non HDL [Mass/Vol] 171 mg/dL High <130 [facility] Comment on above: Order Comment: Speci men Type: BLOOD SPECIMEN Ordering Facility: [facility] Address: [address] [place] [address] Result Comment: <130 mg/dL, Optimal 130-159 mg/dL, Near optimal/above optimal 160-189 mg/dL, Borderline high 190-219 mg/dL, High >219 mg/dL, Very high Secondary prevention optimal non HDL Cholesterol levels are recommended to be <100 mg/dL Performed By: #### 2 4323-8, 63994-9, 25719-7 #### [facility] CLIA [id number] [address] [place] [address] [place] Cholesterol.total/ Cholesterol in HDL [Mass ratio] 8.77 {ratio} High <5.10 [facility] Comment on above: Order Comment: Speci men Type: BLOOD SPECIMEN Ordering Facility: [facility] Address: [address] [place] [address] Performed By: #### 2 4323-8, 22782-4, 26444-7 #### [facility] CLIA [id number] [address] [place] [address] [place] FASTING TIME 11 hrs Normal [facility] Comment on above: Order Comment: Speci men Type: BLOOD SPECIMEN Ordering Facility: [facility] Address: [address] [place] [address] Performed By: #### 2 4323-8, 39621-8, 93494-1 #### [facility] CLIA [id number] [address] [place] [address] [place] Triglyceride [Mass/Vol] 391 mg/dL High <150 [facility] Comment on above: Order Comment: Speci men Type: BLOOD SPECIMEN Ordering Facility: [facility] Address: [address] [place] [address] Result Comment: <150 mg/dL, Normal 150-199 mg/dL, Borderline high 200-499 mg/dL, High >499 mg/dL, Very high Performed By: #### 2 4323-8, 84739-2, 88185-4 #### [facility] CLIA [id number] [address] [place] [address] [place] TSH SerPl-aCncon 10-13-2023 TSH Qn 1.490 m[IU]/L Normal 0.270-4.200 [facility] Comment on above: Order Comment: Chaka lua Type: BLOOD SPECIMEN Ordering Facility: [facility] Address: [address] [place] [address] Result Comment: If t he patient is , TSH reference range varies by gestational period: First Trimester (weeks 9-12): 0.180-2.990 mIU/L Second Trimester: 0.110-3.980 mIU/L Third Trimester: 0.480-4.710 mIU/L Jose Faulkner et al. A Practical Approach for the Verifications and Determination of Site- and Trimester-Specific Reference Intervals for Thyroid Function tests in . Thyroid, 2019:29:3:412-420. Jasmeet Tyler, et al. 2017 Guidelines of the [place] Thyroid Association for the Diagnosis and Management of Thyroid Disease during and the . Thyroid, 2017:27:3:315-389. Performed By: #### 2 4323-8, 40293-2, 38108-3 #### [facility] CLIA [id number] [address] [place] [address] [place] Testost SerPl-mCncon 024 Testosterone [Mass/Vol] 25 ng/dL Normal <40 [facility] Comment on above: Order Comment: Chaka lua Type: BLOOD SPECIMEN Ordering Facility: [facility] Address: [address] [place] [address] Performed By: #### 2 4323-8, 75238-0, 59852-1 #### [facility] CLIA [id number] [address] [place] [address] [place] Vital Signs Date Time Vital Sign Value Performing Clinician Jeannette heller 02-29-2024 09:54-0400 Body mass index (BMI) [Ratio] 33.41 kg/m2 Best Indorf ELECTRICAL APPLIANCE MECHANIC.RESEARCH CHEMICAL ENGINEER Work Phone: [facility] 02-29-2024 09:54-0400 Body temperature 98.8 [degF] Best Priceorf ELECTRICAL APPLIANCE MECHANIC.RESEARCH CHEMICAL ENGINEER Work Phone: [facility] 02-29-2024 09:54-0400 Body weight 80.2 kg Best Priceorf ELECTRICAL APPLIANCE MECHANIC.RESEARCH CHEMICAL ENGINEER Work Phone: [facility] 02-29-2024 09:54-0400 Diastolic blood pressure 80 mm[Hg] Best Indorf ELECTRICAL APPLIANCE MECHANIC.RESEARCH CHEMICAL ENGINEER Work Phone: [facility] 02-29-2024 09:54-0400 Heart rate 116 /min Best Priceorf ELECTRICAL APPLIANCE MECHANIC.RESEARCH CHEMICAL ENGINEER Work Phone: [facility] 02-29-2024 09:54-0400 Respiratory rate 18 /min Best Priceorf ELECTRICAL APPLIANCE MECHANIC.RESEARCH CHEMICAL ENGINEER Work Phone: [facility] 02-29-2024 09:54-0400 SaO2% (BldA) [Mass fraction] 98 % Best Priceorf ELECTRICAL APPLIANCE MECHANIC.RESEARCH CHEMICAL ENGINEER Work Phone: [facility] 02-29-2024 09:54-0400 Systolic blood pressure 118 mm[Hg] Best Priceorf ELECTRICAL APPLIANCE MECHANIC.RESEARCH CHEMICAL ENGINEER Work Phone: [facility] 01-18-2024 10:51-0400 Body height 154.9 cm Guille Conde MD Work Phone: [facility] 01-18-2024 10:51-0400 Body mass index (BMI) [Ratio] 32.88 kg/m2 Guille Conde MD Work Phone: [facility] 01-18-2024 10:51-0400 Body weight 78.93 kg Guille Conde MD Work Phone: [facility] 01-18-2024 10:51-0400 Diastolic blood pressure 62 mm[Hg] Guille Conde MD Work Phone: [facility] 01-18-2024 10:51-0400 Heart rate 88 /min Guille Conde MD Work Phone: [facility] 01-18-2024 10:51-0400 Respiratory rate 12 /min Guille Conde MD Work Phone: [facility] 01-18-2024 10:51-0400 SaO2% (BldA) [Mass fraction] 98 % Guille Conde MD Work Phone: [facility] 01-18-2024 10:51-0400 Systolic blood pressure 126 mm[Hg] Guille Conde MD Work Phone: [facility] 11-24-2023 09:31-0400 Body mass index (BMI) [Ratio] 33.95 kg/m2 Jocy Schultz ELECTRICAL APPLIANCE MECHANIC.RESEARCH CHEMICAL ENGINEER Work Phone: [facility] 11-24-2023 09:31-0400 Body temperature 97.59 [degF] Jocy Schultz ELECTRICAL APPLIANCE MECHANIC.RESEARCH CHEMICAL ENGINEER Work Phone: [facility] 11-24-2023 09:31-0400 Body weight 81.5 kg Jocy Schultz ELECTRICAL APPLIANCE MECHANIC.RESEARCH CHEMICAL ENGINEER Work Phone: [facility] 11-24-2023 09:31-0400 Diastolic blood pressure 76 mm[Hg] Jocy Schultz ELECTRICAL APPLIANCE MECHANIC.RESEARCH CHEMICAL ENGINEER Work Phone: [facility] 11-24-2023 09:31-0400 Heart rate 98 /min Jocy Schultz ELECTRICAL APPLIANCE MECHANIC.RESEARCH CHEMICAL ENGINEER Work Phone: [facility] 11-24-2023 09:31-0400 Respiratory rate 19 /min Jocy Schultz ELECTRICAL APPLIANCE MECHANIC.RESEARCH CHEMICAL ENGINEER Work Phone: [facility] 11-24-2023 09:31-0400 SaO2% (BldA) [Mass fraction] 97 % Jocy Schultz ELECTRICAL APPLIANCE MECHANIC.RESEARCH CHEMICAL ENGINEER Work Phone: [facility] 11-24-2023 09:31-0400 Systolic blood pressure 100 mm[Hg] Jocy Schultz ELECTRICAL APPLIANCE MECHANIC.RESEARCH CHEMICAL ENGINEER Work Phone: [facility] Encounters Encounter Date Encounter Type Care Provider Facility Start: 03-12-2024 End: 03-12-2024 ambulatory GUILLE CONDE Facility:[facility] Start: 02-29-2024 End: 02-29-2024 ambulatory GUILLE CONDE Facility:[facility] Start: 02-29-2024 End: 02-29-2024 Office outpatient visit 15 minutes Best Alvarez ELECTRICAL APPLIANCE MECHANIC.RESEARCH CHEMICAL ENGINEER Work Phone: [facility] Comment on above: Viral upper respirat ory illness (Primary Dx) Start: 01-23-2024 Telephone encounter Brent Conde MD Work Phone: [facility] Comment on above: Results Start: 01-19-2024 End: 01-19-2024 ambulatory GUILLE CONDE Facility:[facility] Start: 01-19-2024 End: 01-19-2024 Subsequent hospital visit by physician [facility] Work Phone: Radiology Comment on above: Nodule of external e ar, left [H61.892] Start: 01-18-2024 End: 01-18-2024 Patient encounter procedure Guille Conde MD Work Phone: [facility] Comment on above: Hyperlipidemia, mixe d (Primary Dx); Daytime somnolence; Nodule of external ear, left Start: 01-18-2024 End: 01-18-2024 ambulatory GUILLE CONDE Facility:[facility] Start: 01-12-2024 End: 01-12-2024 ambulatory KEMI Romulo CONDE Facility:[facility] Start: 01-11-2024 Telephone encounter Kinsey arreguin APRN.RESEARCH CHEMICAL ENGINEER Work Phone: Psychiatry Comment on above: Results Start: 01-10-2024 ambulatory Kinsey moser ELECTRICAL APPLIANCE MECHANIC.RESEARCH CHEMICAL ENGINEER Work Phone: Psychiatry Comment on above: Question regarding L ab work Start: 01-10-2024 E-mail encounter fro m caregiver Kinsey Levine APRN.RESEARCH CHEMICAL ENGINEER Work Phone: Psychiatry Start: 2024 End: 2024 [facility] Kinsey Levine ELECTRICAL APPLIANCE MECHANIC.RESEARCH CHEMICAL ENGINEER Work Phone: Psychiatry Comment on above: Bipolar 2 disorder ( HCC) (Primary Dx); ZAIRE (generalized anxiety disorder); Metabolic syndrome; Elevated liver enzymes; Irritability; Abnormal hemoglobin (HCC) Start: 2024 End: 2024 ambulatory [facility] Facility:[facility] Start: 11-28-2023 End: 11-28-2023 [facility] Kinsey Levine ELECTRICAL APPLIANCE MECHANIC.RESEARCH CHEMICAL ENGINEER Work Phone: Psychiatry Comment on above: Encounter for long-t erm (current) use of medications (Primary Dx); Bipolar 2 disorder (HCC); ZAIRE (generalized anxiety disorder); Metabolic syndrome; Elevated liver enzymes Start: 11-24-2023 Telephone encounter Jocy truong ELECTRICAL APPLIANCE MECHANIC.RESEARCH CHEMICAL ENGINEER Work Phone: [facility] [place] Comment on above: Medication Problem ( Not covered by insurance/) Results Start: 11-24-2023 End: 11-24-2023 ambulatory [facility] Facility:[facility] Start: 11-24-2023 End: 11-24-2023 Subsequent hospital visit by physician [facility] Work Phone: Radiology Comment on above: Acute cough [R05.1] Start: 11-24-2023 End: 11-24-2023 Patient encounter procedure Jocy Schultz ELECTRICAL APPLIANCE MECHANIC.[facility] Work Phone: [facility] Comment on above: URI, acute (Primary Dx); Acute cough; Acute otitis media, right Start: 11-24-2023 End: 11-24-2023 ambulatory [facility] Facility:[facility] Start: 11-21-2023 Telephone encounter Kinsey arreguin APRN.RESEARCH CHEMICAL ENGINEER Work Phone: Psychiatry Comment on above: lab question/reply Start: 10-21-2023 End: 10-21-2023 [facility] Kinsey Levine APRN.RESEARCH CHEMICAL ENGINEER Work Phone: Psychiatry Comment on above: Abnormal hemoglobin (HCC) (Primary Dx); ZAIRE (generalized anxiety disorder); Elevated liver enzymes; Metabolic syndrome; Bipolar 2 disorder (HCC) Start: 10-14-2023 ambulatory Kinsey moser APRN.RESEARCH CHEMICAL ENGINEER Work Phone: Psychiatry Comment on above: Blood work Start: 10-14-2023 Telephone encounter Kinsey arreguin APRN.RESEARCH CHEMICAL ENGINEER Work Phone: Psychiatry Comment on above: Results Start: 10-13-2023 End: 10-13-2023 [facility] [facility] Facility:[facility] Start: 09-16-2023 End: 09-16-2023 Distance Health Kinsey Levine APRN.RESEARCH CHEMICAL ENGINEER Work Phone: Psychiatry Comment on above: Bipolar 2 disorder ( HCC) (Primary Dx); ZAIRE (generalized anxiety disorder) Start: 09-05-2023 End: 09-05-2023 ambulatory Meka Chauhan MD Work Phone: OB/Gynecology Comment on above: Hot flashes (Primary Dx); Irritability; Other acne; Hair thinning Start: 09-05-2023 End: 09-05-2023 Telemedicine consultation with patient Meka Chauhan MD Work Phone: [facility] Start: 08-19-2023 End: 08-19-2023 [facility] Kinsey Levine APRN.RESEARCH CHEMICAL ENGINEER Work Phone: Psychiatry Comment on above: Bipolar 2 disorder ( HCC) (Primary Dx); ZAIRE (generalized anxiety disorder) Start: 07-22-2023 End: 07-22-2023 Distance [facility] Kinsey Levine APRN.RESEARCH CHEMICAL ENGINEER Work Phone: Psychiatry Comment on above: Bipolar 2 disorder ( HCC) (Primary Dx); ZAIRE (generalized anxiety disorder); Encounter for long-term (current) use of medications; Nightmares; Current nicotine use Start: 06-23-2023 End: 06-23-[address] [facility] Start: 04-04-2023 End: 04-04-2023 Distance [facility] Kinsey Levine APRN.RESEARCH CHEMICAL ENGINEER Work Phone: Psychiatry Comment on above: Hot flashes (Primary Dx); Irritability; Other acne; Malaise and fatigue; Encounter for long-term (current) use of medications; ZAIRE (generalized anxiety disorder); Bipolar 2 disorder (HCC); Nightmares Start: 03-28-2023 End: 03-28-2023 ambulatory GUILLE CONDE Facility:[facility] Start: 03-28-2023 End: 03-28-2023 Patient encounter procedure Kinsey Levine APRN.RESEARCH CHEMICAL ENGINEER Work Phone: Psychiatry Comment on above: APPOINTMENT CANCELLE D (Primary Dx) Start: 03-28-2023 End: 03-28-2023 Telemedicine consultation with patient Kinsey Levine APRN.RESEARCH CHEMICAL ENGINEER Work Phone: [facility] [place] Start: 02-28-2023 End: 02-28-2023 Distance Health Kinsey Levine APRN.RESEARCH CHEMICAL ENGINEER Work Phone: Psychiatry Comment on above: ZAIRE (generalized anx iety disorder) (Primary Dx); Bipolar 2 disorder (HCC); Nightmares Start: 10-15-2022 Refill Kinsey moser APRN.RESEARCH CHEMICAL ENGINEER Work Phone: Psychiatry Comment on above: Refill Request Start: 10-13-2022 End: 10-13-2022 Patient encounter procedure Kinsey Levine APRN.RESEARCH CHEMICAL ENGINEER Work Phone: Psychiatry Comment on above: NO SHOW (Primary Dx) Start: 08-13-2022 End: 08-13-2022 Distance [facility] Kinsey Levine APRN.RESEARCH CHEMICAL ENGINEER Work Phone: Psychiatry Comment on above: Encounter for long-t erm (current) use of medications (Primary Dx); ZAIRE (generalized anxiety disorder); Bipolar 2 disorder (HCC) Start: 07-21-2022 End: 07-21-2022 Patient encounter procedure Kinsey Levine APRN.RESEARCH CHEMICAL ENGINEER Work Phone: Psychiatry Comment on above: APPOINTMENT CANCELLE D (Primary Dx) Start: 07-21-2022 End: 07-21-2022 Telemedicine consultation with patient Kinsey Levine APRN.RESEARCH CHEMICAL ENGINEER Work Phone: [facility] [place] Start: 06-30-2022 End: 06-30-2022 [facility] Kinsey Benjamin Chirag ELECTRICAL APPLIANCE MECHANIC.RESEARCH CHEMICAL ENGINEER Work Phone: Psychiatry Comment on above: Bipolar 2 disorder ( HCC) (Primary Dx); ZAIRE (generalized anxiety disorder) Start: 04-28-2022 End: 04-28-2022 [facility] Kinsey Benjamin Chirag ELECTRICAL APPLIANCE MECHANIC.RESEARCH CHEMICAL ENGINEER Work Phone: Psychiatry Comment on above: Bipolar 2 disorder ( HCC) (Primary Dx); ZAIRE (generalized anxiety disorder) Start: 03-26-2022 End: 03-26-2022 [facility] Kinsey Benjamin Chirag ELECTRICAL APPLIANCE MECHANIC.RESEARCH CHEMICAL ENGINEER Work Phone: Psychiatry Comment on above: ZAIRE (generalized anx iety disorder) (Primary Dx); Bipolar 2 disorder (HCC) Start: 12-07-2021 End: 12-07-2021 Patient encounter procedure Kinsey Cassidy Levine APRN.RESEARCH CHEMICAL ENGINEER Work Phone: Psychiatry Comment on above: APPOINTMENT CANCELLE D (Primary Dx) Start: 12-07-2021 End: 12-07-2021 Telemedicine consultation with patient Kinsey Benjamin Chirag GARCIA.RESEARCH CHEMICAL ENGINEER Work Phone: [facility] Start: 11-27-2021 End: 11-27-2021 [facility] Kinsey Benjamin Chirag ELECTRICAL APPLIANCE MECHANIC.RESEARCH CHEMICAL ENGINEER Work Phone: Psychiatry Comment on above: Bipolar 2 disorder ( HCC) (Primary Dx); ZAIRE (generalized anxiety disorder) Start: 10-19-2021 End: 10-19-2021 ambulatory Coby Narvaez APRN.RESEARCH CHEMICAL ENGINEER Work Phone: Telemedicine Comment on above: Treatment not availa ble (Primary Dx); Patient left without being seen Mouth pain (Primary Dx) Start: 10-19-2021 End: 10-19-2021 Telemedicine consultation with patient Coby Brice GARCIA.RESEARCH CHEMICAL ENGINEER Work Phone: [facility] Start: 02-19-2010 End: 06-06-2012 Patient encounter status Kinsey Levine APRN.RESEARCH CHEMICAL ENGINEER Work Phone: [facility] Procedures Date Procedure Procedure Detail Performing Clinician Start: 2024 Follow-up visit Follow Up KINSEY LEVINE Start: 11-24-2023 Radiologic exam ches t 2 views Jocy Schultz ELECTRICAL APPLIANCE MECHANIC.RESEARCH CHEMICAL ENGINEER Work Phone: Plan of Treatment Date Care Activity Detail Author Start: 04-13-2024 End: 04-13-2024 Patient encounter procedure 04/13/2024 9:40 AM EDT Office Visit [facility] [address] [place], [place] [id number] Guille Conde MD [address] [place], [place] [phone] Physical [facility] Comment on above: Physical Start: 03-19-2024 End: 03-19-2024 Patient encounter procedure 03/19/2024 2:45 PM EDT Office Visit Otolaryngology [address] [address] Darwin Earl MD [address] [address] Nodule of external ear, left [H61.892] Otolaryngology Comment on above: Nodule of external e ar, left [H61.892] Start: 03-12-2024 End: 03-12-2024 Follow-up encounter 03/12/2024 9:30 AM EDT [facility] Psychiatry [address] [place] [phone] Kinsey Levine, ELECTRICAL APPLIANCE MECHANIC.RESEARCH CHEMICAL ENGINEER [address] [place] [phone] follow up 2 months Psychiatry Comment on above: follow up 2 months Start: 03-09-2024 End: 03-09-2024 Patient encounter procedure 03/09/2024 10:40 AM EDT Office Visit Family [facility] [address] [place], [place] [phone] Guille Conde MD [address] [place] [address] 2 week follow up-back [facility] [place] Comment on above: 2 week follow up-qian k Start: 03-08-2024 End: 03-08-2024 Patient encounter procedure 03/08/2024 12:20 PM EDT Office Visit [facility] [place] [address] [facility] [place] [address] Guille Conde MD [address] [facility] [place], [place] [phone] Physical [facility] [place] Comment on above: Physical Start: 02-19-2024 Covid-19 Vaccine () Covid-19 Vaccine () [facility] Start: 02-19-2024 Influenza vaccination [facility] Start: 02-03-2024 End: 02-03-2024 Patient encounter procedure 02/03/2024 9:40 AM EDT Office Visit [facility] [place] [address] [facility] [place] [address] Guille Conde MD [address] [facility] [place], [place] [phone] 2 week follow up-back [facility] [place] Comment on above: 2 week follow up-qian k Start: 01-19-2024 End: 01-19-2024 Patient encounter procedure 01/19/2024 10:00 AM EDT Appointment Radiology [address] [place] [address] Nodule of external ear, left [H61.892] Radiology Comment on above: Nodule of external e ar, left [H61.892] Start: 01-12-2024 End: 01-12-2024 Patient encounter procedure 01/12/2024 11:00 AM EDT Office Visit [facility] [place] [address] [facility] [place], [place] [phone] Guille Conde MD [address] [facility] [place], [place] [phone] Lump behind left ear/ Sleep apnea [facility] [place] Comment on above: Lump behind left ear / Sleep apnea Start: 01-11-2024 End: 04-11-2024 Lipid 1996 panel - Serum or Plasma LIPID PANEL BASIC Lab Routine Elevated lipids Expected: 01/11/2024, Expires: 04/11/2024 [facility] Work Phone: Comment on above: Expected: 01/11/2024 , Expires: 04/11/2024 Start: 2024 End: 2024 Follow-up encounter 2024 9:30 AM EDT [facility] [address] [place] [phone] Kinsey Levine, ELECTRICAL APPLIANCE MECHANIC.RESEARCH CHEMICAL ENGINEER [address] [place] [phone] 6 WEEK FOLLOW UP Psychiatry Comment on above: 6 WEEK FOLLOW UP Start: 11-28-2023 End: 02-27-2024 Comprehensive metabolic 2000 panel - Serum or Plasma COMPREHENSIVE METABOLIC PANEL Lab Routine Encounter for long-term (current) use of medications Expected: 11/28/2023, Expires: 02/27/2024 [facility] Comment on above: Expected: 11/28/2023 , Expires: 02/27/2024 Start: 11-28-2023 End: 02-27-2024 Lipid 1996 panel - Serum or Plasma LIPID PANEL BASIC Lab Routine Encounter for long-term (current) use of medications Metabolic syndrome Expected: 11/28/2023, Expires: 02/27/2024 [facility] Work Phone: Comment on above: Expected: 11/28/2023 , Expires: 02/27/2024 Start: 11-28-2023 End: 11-28-2023 Follow-up encounter 11/28/2023 10:30 AM EDT [facility] Psychiatry [address] [place] [phone] Kinsey Levine, ELECTRICAL APPLIANCE MECHANIC.RESEARCH CHEMICAL ENGINEER [address] [place] [phone] FOLLOW UP Psychiatry Comment on above: FOLLOW UP Start: 10-21-2023 End: 01-20-2024 CBC W Auto Differential panel - Blood COMPLETE BLOOD COUNT AND DIFFERENTIAL Lab Routine Abnormal hemoglobin (HCC) Expected: 10/21/2023, Expires: 01/20/2024 [facility] Comment on above: Expected: 10/21/2023 , Expires: 01/20/2024 Start: 10-21-2023 End: 01-20-2024 Comprehensive metabolic 2000 panel - Serum or Plasma COMPREHENSIVE METABOLIC PANEL Lab Routine Elevated liver enzymes Expected: 10/21/2023, Expires: 01/20/2024 [facility] Comment on above: Expected: 10/21/2023 , Expires: 01/20/2024 Start: 10-21-2023 End: 01-20-2024 Lipid 1996 panel - Serum or Plasma LIPID PANEL BASIC Lab Routine Metabolic syndrome Expected: 10/21/2023, Expires: 01/20/2024 [facility] Work Phone: Comment on above: Expected: 10/21/2023 , Expires: 01/20/2024 Start: 10-21-2023 End: 10-21-2023 Follow-up encounter 10/21/2023 8:00 AM [facility] Psychiatry [address] [place] [phone] Kinsey Levine, ELECTRICAL APPLIANCE MECHANIC.RESEARCH CHEMICAL ENGINEER [address] [place] [phone] follow up, labs 10/13/23 Psychiatry Comment on above: follow up, labs 10/12 Start: 09-05-2023 End: 12-05-2023 17-Hydroxyprogesterone [Mass/volume] in Serum or Plasma HYDROXYPROGESTERONE-17 Lab Routine Other acne Hair thinning Expected: 09/05/2023, Expires: 12/05/2023 [facility] Work Phone: Comment on above: Expected: 09/05/2023 , Expires: 12/05/2023 Start: 09-05-2023 End: 12-05-2023 DHEA-S BLD DHEA-S BLD Lab Routine Other acne Hair thinning Expected: 09/05/2023, Expires: 12/05/2023 [facility] Work Phone: Comment on above: Expected: 09/05/2023 , Expires: 12/05/2023 Start: 09-05-2023 End: 12-05-2023 Estradiol (E2) [Mass/volume] in Serum or Plasma ESTRADIOL-17B BLD Lab Routine Hot flashes Irritability Expected: 09/05/2023, Expires: 12/05/2023 [facility] Work Phone: Comment on above: Expected: 09/05/2023 , Expires: 12/05/2023 Start: 09-05-2023 End: 12-05-2023 Follitropin [Units/volume] in Serum or Plasma FSH BLD Lab Routine Hot flashes Irritability Expected: 09/05/2023, Expires: 12/05/2023 [facility] Work Phone: Comment on above: Expected: 09/05/2023 , Expires: 12/05/2023 Start: 09-05-2023 End: 12-05-2023 Testosterone [Mass/volume] in Serum or Plasma TESTOSTERONE TOTAL Lab Routine Other acne Hair thinning Expected: 09/05/2023, Expires: 12/05/2023 [facility] Work Phone: Comment on above: Expected: 09/05/2023 , Expires: 12/05/2023 Start: 07-22-2023 End: 10-21-2023 CBC W Auto Differential panel - Blood CBC + DIFF Lab Routine Encounter for long-term (current) use of medications Expected: 07/22/2023, Expires: 10/21/2023 [facility] Work Phone: Comment on above: Expected: 07/22/2023 , Expires: 10/21/2023 Start: 07-22-2023 End: 10-21-2023 Comprehensive metabolic 2000 panel - Serum or Plasma COMP METABOLIC PANEL Lab Routine Encounter for long-term (current) use of medications Expected: 07/22/2023, Expires: 10/21/2023 [facility] Work Phone: Comment on above: Expected: 07/22/2023 , Expires: 10/21/2023 Start: 07-22-2023 End: 10-21-2023 Hemoglobin A1c in Blood HGB A1C Lab Routine Encounter for long-term (current) use of medications Expected: 07/22/2023, Expires: 10/21/2023 [facility] Work Phone: Comment on above: Expected: 07/22/2023 , Expires: 10/21/2023 Start: 07-22-2023 End: 10-21-2023 Lipid 1996 panel - Serum or Plasma LIPID PANEL BASIC Lab Routine Encounter for long-term (current) use of medications Expected: 07/22/2023, Expires: 10/21/2023 [facility] Work Phone: Comment on above: Expected: 07/22/2023 , Expires: 10/21/2023 Start: 07-22-2023 End: 10-21-2023 Thyrotropin [Units/volume] in Serum or Plasma TSH BLD Lab Routine Encounter for long-term (current) use of medications Expected: 07/22/2023, Expires: 10/21/2023 [facility] Work Phone: Comment on above: Expected: 07/22/2023 , Expires: 10/21/2023 Start: 04-04-2023 End: 06-04-2023 CBC W Auto Differential panel - Blood CBC + DIFF Lab Routine Encounter for long-term (current) use of medications Expected: 04/04/2023, Expires: 06/04/2023 [facility] Work Phone: Comment on above: Expected: 04/04/2023 , Expires: 06/04/2023 Start: 04-04-2023 End: 06-04-2023 Comprehensive metabolic 2000 panel - Serum or Plasma COMP METABOLIC PANEL Lab Routine Encounter for long-term (current) use of medications Expected: 04/04/2023, Expires: 06/04/2023 [facility] Work Phone: Comment on above: Expected: 04/04/2023 , Expires: 06/04/2023 Start: 04-04-2023 End: 06-04-2023 Hemoglobin A1c in Blood HGB A1C Lab Routine Encounter for long-term (current) use of medications Expected: 04/04/2023, Expires: 06/04/2023 [facility] Work Phone: Comment on above: Expected: 04/04/2023 , Expires: 06/04/2023 Start: 04-04-2023 End: 06-04-2023 Lipid 1996 panel - Serum or Plasma LIPID PANEL BASIC Lab Routine Encounter for long-term (current) use of medications Expected: 04/04/2023, Expires: 06/04/2023 [facility] Work Phone: Comment on above: Expected: 04/04/2023 , Expires: 06/04/2023 Start: 04-04-2023 End: 06-04-2023 Thyrotropin [Units/volume] in Serum or Plasma TSH BLD Lab Routine Malaise and fatigue Expected: 04/04/2023, Expires: 06/04/2023 [facility] Work Phone: Comment on above: Expected: 04/04/2023 , Expires: 06/04/2023 Start: 02-18-2023 Covid-19 Vaccine () Covid-19 Vaccine () [facility] Start: 02-18-2023 Influenza vaccination [facility] Start: 08-13-2022 End: 10-13-2022 Hemoglobin A1c in Blood HGB A1C Lab Routine Encounter for long-term (current) use of medications Expected: 08/13/2022, Expires: 10/13/2022 [facility] Work Phone: Comment on above: Expected: 08/13/2022 , Expires: 10/13/2022 Start: 08-13-2022 End: 10-13-2022 Lipid 1996 panel - Serum or Plasma LIPID PANEL BASIC Lab Routine Encounter for long-term (current) use of medications Expected: 08/13/2022, Expires: 10/13/2022 [facility] Work Phone: Comment on above: Expected: 08/13/2022 , Expires: 10/13/2022 Start: 02-18-2022 Influenza vaccination [facility] Start: 05-21-2020 HPV TESTING HPV TESTING [facility] Start: 05-21-2020 PAP TESTING PAP TESTING [facility] Start: 05-21-2020 Screening for malignant neoplasm of cervix [facility] Start: 02-19-2007 PNEUMOCOCCAL (2 - PCV) PNEUMOCOCCAL (2 - PCV) [facility] Start: 02-19-2007 Pneumococcal vaccination [facility] Start: 01-10-2004 Hepatitis B Vaccine (1 of 3 - 19+ 3-dose series) Hepatitis B Vaccine (1 of 3 - 19+ 3-dose series) [facility] Start: 01-10-2004 Shingrix Vaccine (1 of 2) Shingrix Vaccine (1 of 2) [facility] Start: 01-10-2004 Urine microalbumin profile [facility] Start: 2003 HEPATITIS C SCREENING HEPATITIS C [facility] Start: 2003 Hepatitis C screening Hepatitis C [facility] Start: 2003 HIV SCREENING HIV SCREENING [facility] Start: 2003 HIV screening HIV Screening [facility] Start: 1990 COVID-19 VACCINE (#1) COVID-19 VACCI NE (#1) [facility] Start: 1990 COVID-19 VACCINE (1) COVID-19 VACCIN E (1) [facility] Start: 1985 COVID-19 VACCINE (#1) COVID-19 VACCI NE (#1) [facility] Start: 1985 HEPATITIS B (1 of 3 - 3-dose series) HEPATITIS B (1 of 3 - 3-dose series) [facility] Start: 1985 Hepatitis B Vaccine (1 of 3 - 3-dose series) Hepatitis B Vaccine (1 of 3 - 3-dose series) [facility] COVID & INFLUENZA A/ B & RSV PCR, ROUTINE COVID & INFLUENZA A/B & RSV PCR, ROUTINE Microbiology Routine Viral upper respiratory illness 02/29/2024 10:30 AM EDT [facility] Work Phone: End: 01-17-2025 Polysomnogram POLYSOMNOGRAM (PSG) Procedures Routine Daytime somnolence 1 Occurrences starting 01/18/2024 until 01/17/2025 [facility] Comment on above: 1 Occurrences starti ng 01/18/2024 until 01/17/2025 End: 02-16-2025 US Head and neck soft tissue US HEAD/NECK SOFT TISSUE OTHER Radiology Routine Nodule of external ear, left 1 Occurrences starting 01/18/2024 until 02/16/2025 [facility] Work Phone: Comment on above: 1 Occurrences starti ng 01/18/2024 until 02/16/2025 US Head and neck sof t tissue US HEAD/NECK SOFT TISSUE OTHER Radiology Routine Nodule of external ear, left 01/19/2024 10:18 AM EDT [facility] Work Phone: [facility] Immunizations Immunization Date Immunization Notes Care Provider Javi dalal 10-17-2012 RHO(D) immune globul in- IV or IM Coby Narvaez ELECTRICAL APPLIANCE MECHANIC.RESEARCH CHEMICAL ENGINEER Work Phone: [facility] 06-18-2009 RHO(D) immune globul in- IV or IM Coby Narvaez ELECTRICAL APPLIANCE MECHANIC.RESEARCH CHEMICAL ENGINEER Work Phone: [facility] Work Phone: 02-19-2006 pneumococcal polysaccharide vaccine, 23 valent Coby Narvaez ELECTRICAL APPLIANCE MECHANIC.RESEARCH CHEMICAL ENGINEER Work Phone: [facility] Payers Date Payer Category Payer Medicare [employer] MEDICARE [employer] GOLD PLUS [id number] 2023-Present [phone] [address] [address] [place] [address] O [id number] 2023 Medicaid [id number] 2023 Private Health Insurance [id number] 2022 Medicaid [id number] 2018 Medicaid [facility] MEDICAID [id number] 2018-Present [phone] [address] [place] [address] Medicaid [id number] 2018 Medicaid [id number] Social History Date Type Detail Facility Start: 11-06-2018 End: 02-29-2024 Tobacco smoking status NHIS Smokes tobacco daily [facility] Work Phone: History of tobacco use Cigarette Smoker [facility] Work Phone: Start: 11-06-2018 End: 11-10-2022 Cigarettes smoked current (pack per day) - Reported 1 [facility] Start: 11-06-2018 End: 02-29-2024 Tobacco use and exposure Smokeless tobacco non-user [facility] Work Phone: Start: 05-25-2021 End: 02-29-2024 Alcohol intake Current drinker of alcohol (finding) [facility] Start: 01-22-2020 End: 07-10-2020 History SDOH Alcohol Frequency 2 [facility] Start: 01-22-2020 End: 07-10-2020 History SDOH Alcohol Std Drinks 1 [facility] Start: 05-25-2012 History SDOH Alcohol Comment occasionally,NOT WHILE [facility] Start: 01-22-2020 History SDOH Social Connections Phone 4 [facility] Start: 01-22-2020 History SDOH Social Connections Living 8 [facility] Start: 01-22-2020 History SDOH Physical Activity DPW 0 [facility] Start: 01-22-2020 History SDOH Stress 3 [facility] Start: 01-22-2020 Education 10 [facility] Start: 1985 Sex Assigned At Female [facility] Start: 01-22-2020 End: 11-10-2022 Social connection and isolation panel [facility] Do you belong to any clubs or organizations such as yarsani groups, unions, fraternal or athletic groups, or school groups? No [facility] Are you now , , , , never or living with a partner? Living with partner [facility] How often to you hav e a drink containing alcohol? Monthly or less [facility] How many standard dr inks containing alcohol do you have on a typical day? 1 or 2 [facility] How often do you hav e 6 or more drinks on 1 occasion? Never [facility] How hard is it for y ou to pay for the very basics like food, housing, medical care, and heating Hard [facility] Adult Depression Screening Assessment 2 [facility] Do you feel stress - tense, restless, nervous, or anxious, or unable to sleep at night because your mind is troubled all the time - these days [OSQ] To some extent [facility] (I/We) worried wheth er (my/our) food would run out before (I/we) got money to buy more. Never true [facility] Start: 10-15-2021 Gender identity Identifies as female gender (finding) [facility] Start: 10-15-2021 Sexual orientation Heterosexual (finding) [facility] Do you feel stress - tense, restless, nervous, or anxious, or unable to sleep at night because your mind is troubled all the time - these days [OSQ] Rather much [facility] Medical Equipment Procedure Code Equipment Code Equipment Origin al Text Equipment Identifier Dates Sys Ctrl Essure 2 Dev - [id number] Start: 06-04-2014 Clinical Notes 03-29-2013 to 03-12-2024 Best Alvarez APRN.CNP - 02/29/2024 10:13 AM EDTPatient InstructionsTelephone Encounter - Kristen Atkins RN - 01/23/2024 8:47 AM EDTCJanet avila RDMS - 01/19/2024 10:00 AM EDT Note Date & Type Note Facility 03-12-2024 Note HNO ID: [id number] Author: KINSEY LEVINE APRN.BARBARA Service: ? Author Type: Nurse Practitioner Type: Progress Notes Filed: 03/23/2024 21:38 Note Text: FOLLOW UP - PSYCHIATRIC PROGRESS NOTE PATIENT: Kristel Chilel DATE: March 12, 2024 Visit Type: Virtual Visit utilizing two-way audio and video for at least a portion of the visit. Consent for virtual visit obtained verbally. Confidentiality limitations with virtual visits reviewed with the patient and guardian, if present, who have accepted the risk verbally prior to proceeding with encounter. I have communicated my name and active licensure. The patient's identity and physical location were verified at the time of this visit. Either the patient or their legal manufacturer's representative has been informed of the risks and benefits of -- and alternatives to -- treatment through a remote evaluation and consents to proceed with the evaluation remotely. All information is from Patient report except when noted. This evaluation is NOT intended for forensic, disability or child custody purposes. CC: Presenting today for follow up regarding psychiatric medication management. HPI: Treatment Plan from Last Visit on 2024: Decrease Gabapentin at bedtime to see if that improves her excessive sleepiness and fatigue related side effects. Continue Latuda and Minipress at the same dose. Waiting on monitoring lab results as patient completed the lab work this morning. Encouraged to schedule a physical with her primary care team due to patient verbalizes various health issues that have not been addressed or discussed due to her anxiety about scheduling and attending doctor's appointments. Continue to engage in increasing physical activity as tolerated. Continue to engage in exposure therapy by increasing her time and distance with driving. Today Kristel shares that she was diagnosed with COVID last week. Still struggling with a lingering cough. Her 2 children also had COVID but are feeling better now. With COVID, she had a lot of pain in her body. I felt like I was ran over a train a few times . She is going to have surgery on March 26 to remove the cysts behind her ear. She sees [facility]. Her ENT wonders if some of headaches, dizziness and equilibrium issues are related to the cyst and may improve these symptoms. Hoping to be able to have this surgery without any delays. Will be retested at the beginning of March for COVID prior to the surgery. She has appointments set up with Dr. Conde for a physical and back pain. Verbalizes still having to force herself to go to her medical appointments. She gets overwhelmed at times due to her physical health concerns. I am stressed, not going to lie . Dr. Conde has been very supportive per patient. Did review the cholesterol lab work with PCP and we are going to keep an eye on the levels. Does report anxiety about the upcoming surgery. Worries about being under anesthesia. Has discussed her anxiety concerns with ENT provider. They will support her anxiety symptoms prior to the surgery if needed. Has good support in her family and her neighbor Marcial. Her father and neighbor Marcial will be accompanying her to the hospital. Has tolerated the Latuda. I think I am doing okay on it . The anxiety related to the procedure is impacting her sleep for the past week. Has tried to talk herself out of the surgery a couple times but her neighbor Marcial has been really helpful in motivating and supporting her. Will have to send the cyst for biopsy and she worries about it being cancerous. Shares that the waiting period will be hard. Has been able to reduce the Gabapentin to 300 mg twice daily. Her boyfriend is ensuring that she takes Latuda with 300 calories of food. She has been feeling more nauseous even prior to the COVID diagnosis. Nausea has been more prominent for the last 3 weeks. Has been told that she has fluid in her ear and lungs. Discussed trying something like Omeprazole OTC to help and discuss this further with PCP as she has been taking a lot of pepto bismol to help her manage her GI symptoms. Interval Progress: Slightly worse due to the anxiety related to upcoming due to her surgery. PATIENT DATA: Generalized Anxiety Disorder Scale (ZAIRE-7) 11/27/2023 01/08/2024 03/12/2024 ZAIRE - 7 SCORES Score 11 8 12 (0-4) minimal anxiety, (5-9) mild anxiety, (10-14) moderate anxiety, (15-21) severe anxiety Patient Health Questionnaire (PHQ-9) 11/27/2023 01/08/2024 03/12/2024 PHQ-9 Score 8 6 6 (0-4) minimal depression, (5-9) mild depression, (10-14) moderate depression, (15-19) moderately severe depression, (20-27) severe depression PAST MEDICAL HISTORY Diagnosis Date Abnormal glandular Papanicolaou smear of cervix 2001 Abn. Pap smear (cervix),ASCUS Anxiety Bulging disc L5 Chlamydia 2001 Galactorrhea not associated with childbirth Goiter (more content not included)... [facility] 02-29-2024 Note HNO ID: [id number] Author: BEST ALVAREZ APRN.RESEARCH CHEMICAL ENGINEER Service: ? Author Type: Nurse Practitioner Type: Progress Notes Filed: 02/29/2024 10:17 Note Text: Patient presents with: Cough: congestion, fatigue, sore throat and dizziness x 2 days SUBJECTIVE: Kristel Chilel is a 39 year old year old female who presents for the past 2 days with symptoms that are:gradually worsening. Risk factors: none Social History Tobacco Use Smoking status: Every Day Current packs/day: 1.00 Average packs/day: 1 pack/day for 16.0 years (16.0 ttl pk-yrs) Types: Cigarettes Smokeless tobacco: Never Substance Use Topics Alcohol use: Yes Comment: occasionally,NOT WHILE Drug use: No PAST MEDICAL HISTORY 2001: Abnormal glandular Papanicolaou smear of cervix Comment: Abn. Pap smear (cervix),ASCUS No date: Anxiety No date: Bulging disc Comment: L5 2001: Chlamydia No date: Galactorrhea not associated with childbirth 03/04/2015: Goiter No date: Headache No date: History of migraine No date: Mastodynia No date: Nerve damage Comment: right leg 2001: hemorrhage No date: RECURRENT UTI Comment: WITH PREGNANCIES 05/26/2012: Rh negative state in antepartum period No date: Tobacco use disorder 02/29/24 0954 BP: 118/80 Pulse: 116 Resp: 18 Temp: 37.1 ?C (98.8 ?F) SpO2: 98% Weight: 80.2 kg (176 lb 12.9 oz) ALLERGIES Allergen Reactions Cats SNEEZING,WATERY EYES Dog Hair Anaphylaxis SNEEZING, WATERY EYES Sulfa (Sulfonamide * Hives Medications: gabapentin (NEURONTIN) 300 mg capsule Take 1 capsule by mouth two times a day for 60 days. lurasidone (LATUDA) 40 mg tablet Take 1 tablet by mouth daily with food. Take with atleast 300 calories. prazosin (MINIPRESS) 1 mg cap Take 1 capsule by mouth daily at bedtime. dicyclomine (BENTYL) 10 mg capsule TAKE 1 CAPSULE THREE TIMES DAILY BEFORE MEALS albuterol HFA (PROVENTIL HFA, VENTOLIN HFA) 90 mcg/actuation inhaler Inhale 2 Puffs as instructed every 4 hours as needed for wheezing/shortness of breath. Inhalational Spacing Device 1 Device one time only for 1 dose. benzonatate (TESSALON PERLES) 100 mg capsule Take 1 capsule by mouth three times a day as needed for cough. predniSONE (DELTASONE) 10 mg tablet Take 4 tabs daily for 3 days, then 2 tabs daily for 3 days, then 1 tab daily for 3 days with food. (Patient not taking: Reported on 02/29/2024) Review of Systems Constitutional: Positive for chills. Negative for fever and malaise/fatigue. HENT: Positive for congestion and sore throat. Negative for ear pain. Eyes: Negative for discharge and redness. Respiratory: Positive for cough and wheezing. Negative for sputum production and shortness of breath. Gastrointestinal: Positive for nausea. Negative for diarrhea and vomiting. Neurological: Positive for dizziness and headaches. Physical Exam Vitals and nursing note reviewed. Constitutional: General: She is not in acute distress. Appearance: Normal appearance. She is not ill-appearing or toxic-appearing. HENT: Head: Normocephalic. Right Ear: Tympanic membrane and ear canal normal. Left Ear: Ear canal normal. A middle ear effusion is present. Nose: Congestion present. Mouth/Throat: Lips: Mosby. Mouth: Mucous membranes are moist. Pharynx: Posterior oropharyngeal erythema present. Eyes: Pupils: Pupils are equal, round, and reactive to light. Cardiovascular: Rate and Rhythm: Normal rate and regular rhythm. Pulmonary: Effort: Pulmonary effort is normal. Breath sounds: Normal breath sounds. Abdominal: General: Abdomen is flat. Musculoskeletal: Cervical back: Normal range of motion. Tenderness present. Lymphadenopathy: Cervical: No cervical adenopathy. Skin: General: Skin is warm and dry. Neurological: General: No focal deficit present. Mental Status: She is alert. Psychiatric: Mood and Affect: Mood normal. Behavior: Behavior normal. ASSESSMENT/PLAN: 1. Viral upper respiratory illness - ICD9: 465.9, ICD10: J06.9 Pt declines antiviral tx if + - Discussed viral etiology and rationale for treatment. - Symptomatic treatment with prn analgesia - Supportive care with fluids and rest - Follow up in 3-5 days if symptoms persist or sooner if worsening of symptoms - COVID AND INFLUENZA A/B AND RSV PCR, ROUTINE Best Alvarez [facility] 02-29-2024 History of Presen t illness Narrative Patient presents with: Cough: congestion, fatigue, sore throat and dizziness x 2 days SUBJECTIVE: Kristel Chilel is a 39 year old year old female who presents for the past 2 days with symptoms that are:gradually worsening. Risk factors: none Social History Tobacco Use Smoking status: Every Day Current packs/day: 1.00 Average packs/day: 1 pack/day for 16.0 years (16.0 ttl pk-yrs) Types: Cigarettes Smokeless tobacco: Never Substance Use Topics Alcohol use: Yes Comment: occasionally,NOT WHILE Drug use: No PAST MEDICAL HISTORY 2001: Abnormal glandular Papanicolaou smear of cervix Comment: Abn. Pap smear (cervix),ASCUS No date: Anxiety No date: Bulging disc Comment: L5 2001: Chlamydia No date: Galactorrhea not associated with childbirth 03/04/2015: Goiter No date: Headache No date: History of migraine No date: Mastodynia No date: Nerve damage Comment: right leg 2001: hemorrhage No date: RECURRENT UTI Comment: WITH PREGNANCIES 05/26/2012: Rh negative state in antepartum period No date: Tobacco use disorder 02/29/24 0954 BP: 118/80 Pulse: 116 Resp: 18 Temp: 37.1 C (98.8 F) SpO2: 98% Weight: 80.2 kg (176 lb 12.9 oz) ALLERGIES Allergen Reactions Cats SNEEZING,WATERY EYES Dog Hair Anaphylaxis SNEEZING, WATERY EYES Sulfa (Sulfonamide * Hives Medications: gabapentin (NEURONTIN) 300 mg capsule Take 1 capsule by mouth two times a day for 60 days. lurasidone (LATUDA) 40 mg tablet Take 1 tablet by mouth daily with food. Take with atleast 300 calories. prazosin (MINIPRESS) 1 mg cap Take 1 capsule by mouth daily at bedtime. dicyclomine (BENTYL) 10 mg capsule TAKE 1 CAPSULE THREE TIMES DAILY BEFORE MEALS albuterol HFA (PROVENTIL HFA, VENTOLIN HFA) 90 mcg/actuation inhaler Inhale 2 Puffs as instructed every 4 hours as needed for wheezing/shortness of breath. Inhalational Spacing Device 1 Device one time only for 1 dose. benzonatate (TESSALON PERLES) 100 mg capsule Take 1 capsule by mouth three times a day as needed for cough. predniSONE (DELTASONE) 10 mg tablet Take 4 tabs daily for 3 days, then 2 tabs daily for 3 days, then 1 tab daily for 3 days with food. (Patient not taking: Reported on 02/29/2024) Review of Systems Constitutional: Positive for chills. Negative for fever and malaise/fatigue. HENT: Positive for congestion and sore throat. Negative for ear pain. Eyes: Negative for discharge and redness. Respiratory: Positive for cough and wheezing. Negative for sputum production and shortness of breath. Gastrointestinal: Positive for nausea. Negative for diarrhea and vomiting. Neurological: Positive for dizziness and headaches. Physical Exam Vitals and nursing note reviewed. Constitutional: General: She is not in acute distress. Appearance: Normal appearance. She is not ill-appearing or toxic-appearing. HENT: Head: Normocephalic. Right Ear: Tympanic membrane and ear canal normal. Left Ear: Ear canal normal. A middle ear effusion is present. Nose: Congestion present. Mouth/Throat: Lips: Mosby. Mouth: Mucous membranes are moist. Pharynx: Posterior oropharyngeal erythema present. Eyes: Pupils: Pupils are equal, round, and reactive to light. Cardiovascular: Rate and Rhythm: Normal rate and regular rhythm. Pulmonary: Effort: Pulmonary effort is normal. Breath sounds: Normal breath sounds. Abdominal: General: Abdomen is flat. Musculoskeletal: Cervical back: Normal range of motion. Tenderness present. Lymphadenopathy: Cervical: No cervical adenopathy. Skin: General: Skin is warm and dry. Neurological: General: No focal deficit present. Mental Status: She is alert. Psychiatric: Mood and Affect: Mood normal. Behavior: Behavior normal. ASSESSMENT/PLAN: 1. Viral upper respiratory illness - ICD9: 465.9, ICD10: J06.9 Pt declines antiviral tx if + - Discussed viral etiology and rationale for treatment. - Symptomatic treatment with prn analgesia - Supportive care with fluids and rest - Follow up in 3-5 days if symptoms persist or sooner if worsening of symptoms - COVID & INFLUENZA A/B & RSV PCR, ROUTINE Best Alvarez documented in this encounter [facility] 02-29-2024 Instructions Best Alvarez APRN.CNP - 02/29/2024 10:05 AM EDT Treatment for Viral Upper Respiratory Tract Infections Your body will kill off the virus by itself. Additionally, you can prime your body's immune system. This may help you get better more quickly. Drink lots of fluids - at least one gallon of non-caffeinated liquids per day Make sure you are eating well Get plenty of rest - at least 8 hours of sleep per night for adults and more for children We do not have any medications that kill off these viruses. Antibiotics are used to treat bacterial infections; however, they are not active against viral infections. There are some things that might help you feel better, though. Vaporizers, humidifiers, hot showers, and hot fluids help open respiratory and sinus passages Sudafed is a safe and effective decongestant [place] [facility] [place] may offer relief of nasal and head congestion Shai's Vapor Rub placed on a hot towel and draped over the head may relieve congestion Tylenol and Advil help control fevers and headaches Salt water gargles help relieve sore throats Chloraceptic spray or throat lozenges may also help relieve sore throat symptoms Robitussin DM will help loosen up secretions and also provide relief from a cough Occasionally, viral infections turn into something more serious. You should see your doctor or return to the Urgent Care if: You have fevers for longer than five days You have fevers above 102 degrees You are still sick after 10 days You have shortness of breath or wheezing After several days you are getting worse rather than better documented in this encounter [facility] 01-23-2024 Telephone encounter Note Patient notified of results and provider's instructions. Patient verbalizes understanding. Patient requesting referral to be faxed to [facility]. Demographics, office note, US results, and referral faxed to [facility] as requested by patient. Kristen Atkins RN [facility] 01-23-2024 Miscellaneous Notes Patient notified of results and provider's instructions. Patient verbalizes understanding. Patient requesting referral to be faxed to [facility]. Demographics, office note, US results, and referral faxed to [facility] as requested by patient. Kristen Atkins RN ----- Message from Guille Conde MD sent at 01/23/2024 8:02 AM EDT ----- US behind left ear consistent with a cyst. Recommend f/u with ENT for removal. documented in this encounter [facility] 01-23-2024 Telephone encounter Note ----- Message from Guille Conde MD sent at 01/23/2024 8:02 AM EDT ----- US behind left ear consistent with a cyst. Recommend f/u with ENT for removal. [facility] 01-19-2024 History of Presen t illness Narrative Radiology Service Progress Note PATIENT NAME: Kristel Chilel DATE OF SERVICE: January 19, 2024 TIME: 10:22 AM PATIENT IDENTITY VERIFICATION COMPLETED USING TWO (2) IDENTIFIERS: Name and Date of confirmed by patient verbally. FALL SCREENING: Has the patient had 2 falls in the last year or 1 fall with injury or currently using an Ambulatory Assistive Device (Walker, Cane, Wheelchair, Crutches, etc.)? No PATIENT GENDER DATA: Female. status: : No status: NO. PATIENT RELEVANT IMPLANT DATA REVIEWED: Not Applicable PATIENT PRESENTS WITH AN IMPLANTABLE OR ATTACHED CHAIR SPRING ASSEMBLER: No RADIOLOGY DEPARTMENT: Ultrasound PERIPHERAL IV DATA: Not applicable SIGNED BY: Janet Graham RDMS January 19, 2024 10:22 AM documented in this encounter [facility] 01-19-2024 Note HNO ID: [id number] Author: JANET GRAHAM RDMS Service: ? Author Type: Test Rider Type: Progress Notes Filed: 01/19/2024 10:23 Note Text: Radiology Service Progress Note PATIENT NAME: Kristel Chilel DATE OF SERVICE: January 19, 2024 TIME: 10:22 AM PATIENT IDENTITY VERIFICATION COMPLETED USING TWO (2) IDENTIFIERS: Name and Date of confirmed by patient verbally. FALL SCREENING: Has the patient had 2 falls in the last year or 1 fall with injury or currently using an Ambulatory Assistive Device (Walker, Cane, Wheelchair, Crutches, etc.)? No PATIENT GENDER DATA: Female. status: : No status: NO. PATIENT RELEVANT IMPLANT DATA REVIEWED: Not Applicable PATIENT PRESENTS WITH AN IMPLANTABLE OR ATTACHED CHAIR SPRING ASSEMBLER: No RADIOLOGY DEPARTMENT: Ultrasound PERIPHERAL IV DATA: Not applicable SIGNED BY: Janet Graham RDMS January 19, 2024 10:22 AM [facility] 01-18-2024 Note HNO ID: [id number] Author: GUILLE CONDE MD Service: ? Author Type: Physician Type: Progress Notes Filed: 01/18/2024 13:15 Note Text: Chief Complaint Patient presents with: Follow Up: multiple issues: high cholesterol, possible sleep apnea, left ear lump HPI Kristel Chilel is a 39 year old female who presents here today for Above Complaints. Patient has had recent labs which showed high cholesterol. Worried she may need medications. Has been working on lower cholesterol diet and triglycerides have come down <500. Working on walking. Also concerned she could have sleep apnea. Patient reports that has been fatigued even with getting 8 hours of sleep and gets headaches. Denies snoring or apneic episodes. Also complaining of lump behind her left ear for the last couple of years. Not treating with anything at home. Denies fever/chills, erythema, warmth to touch, drainage. Past medical history, appointments, medications, allergies reviewed. Previous Medical History PAST MEDICAL HISTORY 2001: Abnormal glandular Papanicolaou smear of cervix Comment: Abn. Pap smear (cervix),ASCUS No date: Anxiety No date: Bulging disc Comment: L5 2001: Chlamydia No date: Galactorrhea not associated with childbirth 03/04/2015: Goiter No date: Headache No date: History of migraine No date: Mastodynia No date: Nerve damage Comment: right leg 2001: hemorrhage No date: RECURRENT UTI Comment: WITH PREGNANCIES 05/26/2012: Rh negative state in antepartum period No date: Tobacco use disorder Previous Surgical History PAST SURGICAL HISTORY No date: DILATION AND CURETTAGE DXAND/THER NONOBSTETRIC Comment: Dilation AND curettage : ESSURE 06/19/15: SALPINGECTOMY; Bilateral No date: TONSILLECTOMY AND ADENOIDECTOMY 06/19/15: VAGINAL HYSTERECTOMY UTERUS 250 GM/< Comment: TLH Family History FAMILY HISTORY Problem Relation Age of Onset Heart Mother Heart Sister has had repair of defect Breast Cancer Maternal Aunt Asthma Mother Hypertension Mother Aneurysm Mother 66 brain Patient Allergies ALLERGIES Allergen Reactions Cats SNEEZING,WATERY EYES Dog Hair Anaphylaxis SNEEZING, WATERY EYES Sulfa (Sulfonamide * Hives Current Medications Current Outpatient Medications on File Prior to Visit Medication Sig gabapentin (NEURONTIN) 300 mg capsule Take 1 capsule by mouth two times a day for 60 days. lurasidone (LATUDA) 40 mg tablet Take 1 tablet by mouth daily with food. Take with atleast 300 calories. prazosin (MINIPRESS) 1 mg cap Take 1 capsule by mouth daily at bedtime. albuterol HFA (PROVENTIL HFA, VENTOLIN HFA) 90 mcg/actuation inhaler Inhale 2 Puffs as instructed every 4 hours as needed for wheezing/shortness of breath. predniSONE (DELTASONE) 10 mg tablet Take 4 tabs daily for 3 days, then 2 tabs daily for 3 days, then 1 tab daily for 3 days with food. dicyclomine (BENTYL) 10 mg capsule TAKE 1 CAPSULE THREE TIMES DAILY BEFORE MEALS albuterol HFA (PROAIR HFA) 90 mcg/actuation inhaler Inhale 1-2 Puffs as instructed every 4 hours as needed. No current facility-administered medications on file prior to visit. Social History Social History Tobacco Use Smoking status: Every Day Packs/day: 1.00 Years: 16.00 Additional pack years: 0.00 Total pack years: 16.00 Types: Cigarettes Smokeless tobacco: Never Substance Use Topics Alcohol use: Yes Comment: occasionally,NOT WHILE Drug use: No Review of Symptoms REVIEW OF SYSTEMS See HPI EXAM: BP 126/62 (BP Site: Left Arm, BP Position: Sitting, BP Cuff Size: Large Adult) Pulse 88 Resp 12 Ht 154.9 cm (5' 1 ) Wt 78.9 kg (174 lb) LMP 04/30/2015 (Approximate) SpO2 98% BMI 32.88 kg/m? General Appearance: Well appearing, alert, in no acute distress, well-hydrated, well nourished.. Skin: Skin color, texture, turgor normal, no suspicious rashes or lesions. Head: Normocephalic, no masses, lesions, tenderness or abnormalities. Ears: Canals and TMs normal. 2 cm nodule behind left earlobe which transilluminates with otoscope. Non tender. No erythema or drainage. Neck: Supple, no adenopathy; thyroid symmetric, normal size, no bruits. Lungs: Lungs clear to auscultation. No wheezing, rhonchi, rales.. Heart: RRR without murmur, gallop, or rubs. No ectopy. Health Maintenance List Hepatitis C Screening Never done HIV Screening Never done DTaP,Tdap,Td Vaccine(1 - Tdap) Never done Hepatitis B Vaccine(1 of 3 - 19+ 3-dose series) Never done Shingrix Vaccine(1 of 2) Never done Pneumococcal Vaccine(2 of 2 - PCV) due on 02/19/2007 Cervical Cancer Screening due on 05/21/2020 Covid-19 Vaccine(1 - season) Never done Influenza Vaccine(1) due on 02/19/2024 HPV Vaccine Aged Out Data reviewed Latest Ref Rng 11/24/2023 2024 01/12/2024 WBC 3.70 - 11.00 k/uL 10.48 RBC 3.90 - 5.20 m/uL 5.33 (H) Hemoglobin 11.5 - 15.5 g/dL 16.1 (H) Hematocr (more content not included)... [facility] 01-18-2024 History of Presen t illness Narrative Chief Complaint Patient presents with: Follow Up: multiple issues: high cholesterol, possible sleep apnea, left ear lump HPI Kristel Chilel is a 39 year old female who presents here today for Above Complaints. Patient has had recent labs which showed high cholesterol. Worried she may need medications. Has been working on lower cholesterol diet and triglycerides have come down <500. Working on walking. Also concerned she could have sleep apnea. Patient reports that has been fatigued even with getting 8 hours of sleep and gets headaches. Denies snoring or apneic episodes. Also complaining of lump behind her left ear for the last couple of years. Not treating with anything at home. Denies fever/chills, erythema, warmth to touch, drainage. Past medical history, appointments, medications, allergies reviewed. Previous Medical History PAST MEDICAL HISTORY 2001: Abnormal glandular Papanicolaou smear of cervix Comment: Abn. Pap smear (cervix),ASCUS No date: Anxiety No date: Bulging disc Comment: L5 2001: Chlamydia No date: Galactorrhea not associated with childbirth 03/04/2015: Goiter No date: Headache No date: History of migraine No date: Mastodynia No date: Nerve damage Comment: right leg 2001: hemorrhage No date: RECURRENT UTI Comment: WITH PREGNANCIES 05/26/2012: Rh negative state in antepartum period No date: Tobacco use disorder Previous Surgical History PAST SURGICAL HISTORY No date: DILATION & CURETTAGE DX&/THER NONOBSTETRIC Comment: Dilation & curettage -2013: ESSURE 06/19/15: SALPINGECTOMY; Bilateral No date: TONSILLECTOMY & ADENOIDECTOMY <AGE 12 06/19/15: VAGINAL HYSTERECTOMY UTERUS 250 GM/< Comment: TLH Family History FAMILY HISTORY Problem Relation Age of Onset Heart Mother Heart Sister has had repair of defect Breast Cancer Maternal Aunt Asthma Mother Hypertension Mother Aneurysm Mother 66 brain Patient Allergies ALLERGIES Allergen Reactions Cats SNEEZING,WATERY EYES Dog Hair Anaphylaxis SNEEZING, WATERY EYES Sulfa (Sulfonamide * Hives Current Medications Current Outpatient Medications on File Prior to Visit Medication Sig gabapentin (NEURONTIN) 300 mg capsule Take 1 capsule by mouth two times a day for 60 days. lurasidone (LATUDA) 40 mg tablet Take 1 tablet by mouth daily with food. Take with atleast 300 calories. prazosin (MINIPRESS) 1 mg cap Take 1 capsule by mouth daily at bedtime. albuterol HFA (PROVENTIL HFA, VENTOLIN HFA) 90 mcg/actuation inhaler Inhale 2 Puffs as instructed every 4 hours as needed for wheezing/shortness of breath. predniSONE (DELTASONE) 10 mg tablet Take 4 tabs daily for 3 days, then 2 tabs daily for 3 days, then 1 tab daily for 3 days with food. dicyclomine (BENTYL) 10 mg capsule TAKE 1 CAPSULE THREE TIMES DAILY BEFORE MEALS albuterol HFA (PROAIR HFA) 90 mcg/actuation inhaler Inhale 1-2 Puffs as instructed every 4 hours as needed. No current facility-administered medications on file prior to visit. Social History Social History Tobacco Use Smoking status: Every Day Packs/day: 1.00 Years: 16.00 Additional pack years: 0.00 Total pack years: 16.00 Types: Cigarettes Smokeless tobacco: Never Substance Use Topics Alcohol use: Yes Comment: occasionally,NOT WHILE Drug use: No Review of Symptoms REVIEW OF SYSTEMS See HPI EXAM: BP 126/62 (BP Site: Left Arm, BP Position: Sitting, BP Cuff Size: Large Adult) Pulse 88 Resp 12 Ht 154.9 cm (5' 1 ) Wt 78.9 kg (174 lb) LMP 04/30/2015 (Approximate) SpO2 98% BMI 32.88 kg/m General Appearance: Well appearing, alert, in no acute distress, well-hydrated, well nourished.. Skin: Skin color, texture, turgor normal, no suspicious rashes or lesions. Head: Normocephalic, no masses, lesions, tenderness or abnormalities. Ears: Canals and TMs normal. 2 cm nodule behind left earlobe which transilluminates with otoscope. Non tender. No erythema or drainage. Neck: Supple, no adenopathy; thyroid symmetric, normal size, no bruits. Lungs: Lungs clear to auscultation. No wheezing, rhonchi, rales.. Heart: RRR without murmur, gallop, or rubs. No ectopy. Health Maintenance List Hepatitis C Screening Never done HIV Screening Never done DTaP,Tdap,Td Vaccine(1 - Tdap) Never done Hepatitis B Vaccine(1 of 3 - 19+ 3-dose series) Never done Shingrix Vaccine(1 of 2) Never done Pneumococcal Vaccine(2 of 2 - PCV) due on 02/19/2007 Cervical Cancer Screening due on 05/21/2020 Covid-19 Vaccine(1 - 2022- season) Never done Influenza Vaccine(1) due on 02/19/2024 HPV Vaccine Aged Out Data reviewed Latest Ref Rng 11/24/2023 2024 01/12/2024 WBC 3.70 - 11.00 k/uL 10.48 RBC 3.90 - 5.20 m/uL 5.33 (H) Hemoglobin 11.5 - 15.5 g/dL 16.1 (H) Hematocrit 36.0 - 46.0 % 48.7 (H) MCV 80.0 - 100.0 fL 91.4 MCH 26.0 - 34.0 pg 30.2 MCHC 30.5 - 36.0 g/dL 33.1 RDW-CV 11.5 - 15.0 % 12.3 Platelet Count 150 - 400 k/uL 190 MPV 9.0 - 12.7 fL 12.0 Neut% % 65.3 Abs Neut (ANC) 1.45 - 7.50 k/uL 6.86 Lymph% % 25.9 Abs Lymph 1.00 - 4.00 k/uL 2.71 Fentress% % 4.8 Abs Fentress <0.87 k/uL 0.50 Eosin% % 3.0 Abs Eosin <0.46 k/uL 0.31 Baso% % 0.5 Abs Baso <0.11 k/uL 0.05 Immature Gran % % 0.5 IMMATURE GRANS (ABS) <0.10 k/uL 0.05 NRBC /100 WBC 0.0 Absolute nRBC <0.01 k/uL <0.01 DTYPE Auto Protein, Total 6.3 - 8.0 g/dL 7.9 7.3 Albumin 3.9 - 4.9 g/dL 4.4 4.3 Calcium 8.5 - 10.2 mg/dL 9.8 9.9 Bilirubin, Total 0.2 - 1.3 mg/dL 0.3 0.4 Alkaline Phosphatase 34 - 123 U/L 88 85 AST 13 - 35 U/L 28 34 ALT 7 - 38 U/L 41 (H) 54 (H) Glucose 74 - 99 mg/dL 113 (H) 106 (H) BUN 7 - 21 mg/dL 10 12 Creatinine 0.58 - 0.96 mg/dL 0.85 0.86 Sodium 136 - 144 mmol/L 137 136 Potassium 3.7 - 5.1 mmol/L 4.1 4.3 Chloride 98 - 107 mmol/L 106 103 CO2 22 - 30 mmol/L 20 (L) 24 Anion Gap 8 - 15 mmol/L 11 9 eGFR >=60 mL/min/1.73m 90 89 Cholesterol, Total <200 mg/dL 171 219 (H) 208 (H) Triglyceride <150 mg/dL 307 (H) 686 (H) 441 (H) HDL Cholesterol >39 mg/dL 21 (L) 22 (L) 24 (L) Non HDL Cholesterol <130 mg/dL 150 (H) 197 (H) 184 (H) Fasting Time hrs 12 12 12 VLDL Cholesterol <30 mg/dL 61 (H) -- -- VLDL Cholesterol 135 (H) 98 (H) TC:HDL Ratio <5.10 8.14 (H) 9.95 (H) 8.67 (H) LDL Cholesterol 89 -- -- LDL:HDL Ratio 4.24 (H) -- -- LDL Cholesterol, Direct <100 mg/dL 62 86 Legend: (H) High (L) Low ASSESSMENT/PLAN: 1. Hyperlipidemia, mixed - ICD9: 272.2, ICD10: E78.2 (primary diagnosis) - Uncontrolled. Not in range for statin or fibrate. - Counseled on healthy diet and regular exercise 2. Daytime somnolence - ICD9: 780.54, ICD10: R40.0 May be 2/2 LOI. Will order PSG for further evaluation and call with results. 3. Nodule of external ear, left - ICD9: 380.89, ICD10: H61.892 Suspect cyst. Will obtain US to confirm and refer to ENT for removal. - US HEAD/NECK SOFT TISSUE OTHER - CONSULT TO ENT Guille Conde MD documented in this encounter [facility] 01-11-2024 Telephone encounter Note Patient was notified Melvi Swift MA [facility] 01-11-2024 Miscellaneous Notes Patient was notified eMlvi Swift MA Please notify the patient that the cholesterol results seems unusually high compared to her past results, especially since she confirmed in her [employer] message that she was fasting. Please have her complete the cholesterol fasting lab work again. Have her fast for 12 hours prior to the lab work. Let me know if she has any questions. Patient reports she has viewed her lab results on [facility], and is concerned about the abnormal results. Reports she did fast for these labs. Asking Kinsey to please review and advise. documented in this encounter [facility] 01-11-2024 Telephone encounter Note See separate phone encounter. Repeat lab work for Lipids ordered. [facility] 01-11-2024 Miscellaneous Notes See separate phone encounter. Repeat lab work for Lipids ordered. documented in this encounter [facility] 01-11-2024 Telephone encounter Note Please notify the patient that the cholesterol results seems unusually high compared to her past results, especially since she confirmed in her [employer] message that she was fasting. Please have her complete the cholesterol fasting lab work again. Have her fast for 12 hours prior to the lab work. Let me know if she has any questions. [facility] 01-11-2024 Telephone encounter Note Patient reports she has viewed her lab results on [facility], and is concerned about the abnormal results. Reports she did fast for these labs. Asking Kinsey to please review and advise. [facility] 2024 Note HNO ID: [id number] Author: KINSEY LEVINE APRN.CNP Service: ? Author Type: Nurse Practitioner Type: Progress Notes Filed: 2024 10:44 Note Text: FOLLOW UP - PSYCHIATRIC PROGRESS NOTE PATIENT: Kristle Chilel DATE: 2024 Visit Type: Virtual Visit utilizing two-way audio and video for at least a portion of the visit. Consent for virtual visit obtained verbally. Confidentiality limitations with virtual visits reviewed with the patient and guardian, if present, who have accepted the risk verbally prior to proceeding with encounter. I have communicated my name and active licensure. The patient's identity and physical location were verified at the time of this visit. Either the patient or their legal manufacturer's representative has been informed of the risks and benefits of -- and alternatives to -- treatment through a remote evaluation and consents to proceed with the evaluation remotely. All information is from Patient report except when noted. This evaluation is NOT intended for forensic, disability or child custody purposes. Some elements were copied from the previous note which have been updated where appropriate and reflect current decision making from today 2024. CC: Presenting today for follow up regarding psychiatric medication management. HPI: Treatment Plan from Last Visit on 11/28/2023: Continue Latuda at the 40 mg dose. Reminded patient to ensure that she is taking it with 300 calories. Continue the rest of the psychiatric medications at the same dose. Complete monitoring lab work in 4 weeks. Utilize Diazepam as needed to manage severe anxiety symptoms. Today Kristel shares that I am alright . Her step-mother and so she was hosting family members for the past week. It was hectic and did not get her blood work completed till this morning. Her anxiety has improved slightly with completing blood work. Discussed the wonderful support from the [facility] lab staff. The last couple weeks, she has been feeling more irritable. She has been feeling more lozano, and grumpy but not tearful. Shares that the symptoms were notable before family visited. Has been picking fights with family at home. She has been losing weight and her clothes are fitting her better. Has been driving more and farther distances. Patient and neighbor have tried to walk more consistently. Does like having an accountability partner. Continues to struggle with fatigue. Has experienced twitching in muscles and wondering if her nerve pain in flaring again. Her left thigh has been hurting. Wonders about her potassium level. Notified that lab results were still pending but potassium level was WNL in the past labs. She has been trying to stay active but still feels tired. Helped her daughter rearrange her room. Feels that overall, she has been making more progress in the last few months. Has not had experienced nightmares since starting Prazosin. Has mentioned some dizziness but not as prominent. Does not think that it is related to Prazosin. Shares that she needs to schedule a visit with primary care. Concerned about noticing a lump behind her ear. Has noticed ear ache and some clogging. Since anxiety has improved, she feels that she can attend an office visit for assessment. Shares that this has been ongoing for a couple years. Patient shares that she does not snore but does wake up gasping for breath. Does sleep with dogs and she shares that she is allergic to them so unsure if the breathing symptoms are related to that. Does not feel that she gets restorative sleep and feels excessively fatigued during the day. She discussed anticipatory anxiety about going to see doctors due to family history of health issues. Shares that anxiety makes her experience more negative thoughts and makes her feel overwhelmed which gets in the way of functioning. She takes Valium only if needed for severe episodes of anxiety. Discussed the possibility of Gabapentin at bedtime contributing to more fatigue and drowsiness. Patient is in agreement to try a decrease in dose. She has been concerned about nerve pain and was wondering of options to address that. Encouraged to discuss this with her primary care team. Patient has not had a physical in a long time. Discussed the importance of addressing physical health issues. Interval Progress: Slightly improved. Notable improvement in ZAIRE-7 and PHQ-9 scores. PATIENT DATA: Generalized Anxiety Disorder Scale (ZAIRE-7) 10/20/2023 11/27/2023 01/08/2024 ZAIRE - 7 SCORES Score 12 11 8 (0-4) minimal anxiety, (5-9) mild anxiety, (10-14) moderate anxiety, (15-21) severe anxiety Patient Health Questionnaire (PHQ-9) 10/20/2023 11/27/2023 01/08/2024 PHQ-9 Score 6 8 6 (0-4) minimal depression, (5-9) mild depression, (10-14) moderate depression, (15-19) moderately severe depression, (20-27) severe depression PAST MEDICAL HISTORY Diagn (more content not included)... [facility] 2024 History of Presen t illness Narrative Images from the original note were not included. FOLLOW UP - PSYCHIATRIC PROGRESS NOTE PATIENT: Kristel Chilel DATE: 2024 Visit Type: Virtual Visit utilizing two-way audio and video for at least a portion of the visit. Consent for virtual visit obtained verbally. Confidentiality limitations with virtual visits reviewed with the patient and guardian, if present, who have accepted the risk verbally prior to proceeding with encounter. I have communicated my name and active licensure. The patient's identity and physical location were verified at the time of this visit. Either the patient or their legal manufacturer's representative has been informed of the risks and benefits of -- and alternatives to -- treatment through a remote evaluation and consents to proceed with the evaluation remotely. All information is from Patient report except when noted. This evaluation is NOT intended for forensic, disability or child custody purposes. Some elements were copied from the previous note which have been updated where appropriate and reflect current decision making from today 2024. CC: Presenting today for follow up regarding psychiatric medication management. HPI: Treatment Plan from Last Visit on 11/28/2023: Continue Latuda at the 40 mg dose. Reminded patient to ensure that she is taking it with 300 calories. Continue the rest of the psychiatric medications at the same dose. Complete monitoring lab work in 4 weeks. Utilize Diazepam as needed to manage severe anxiety symptoms. Today Kristel shares that I am alright . Her step-mother and so she was hosting family members for the past week. It was hectic and did not get her blood work completed till this morning. Her anxiety has improved slightly with completing blood work. Discussed the wonderful support from the [facility] lab staff. The last couple weeks, she has been feeling more irritable. She has been feeling more lozano, and grumpy but not tearful. Shares that the symptoms were notable before family visited. Has been picking fights with family at home. She has been losing weight and her clothes are fitting her better. Has been driving more and farther distances. Patient and neighbor have tried to walk more consistently. Does like having an accountability partner. Continues to struggle with fatigue. Has experienced twitching in muscles and wondering if her nerve pain in flaring again. Her left thigh has been hurting. Wonders about her potassium level. Notified that lab results were still pending but potassium level was WNL in the past labs. She has been trying to stay active but still feels tired. Helped her daughter rearrange her room. Feels that overall, she has been making more progress in the last few months. Has not had experienced nightmares since starting Prazosin. Has mentioned some dizziness but not as prominent. Does not think that it is related to Prazosin. Shares that she needs to schedule a visit with primary care. Concerned about noticing a lump behind her ear. Has noticed ear ache and some clogging. Since anxiety has improved, she feels that she can attend an office visit for assessment. Shares that this has been ongoing for a couple years. Patient shares that she does not snore but does wake up gasping for breath. Does sleep with dogs and she shares that she is allergic to them so unsure if the breathing symptoms are related to that. Does not feel that she gets restorative sleep and feels excessively fatigued during the day. She discussed anticipatory anxiety about going to see doctors due to family history of health issues. Shares that anxiety makes her experience more negative thoughts and makes her feel overwhelmed which gets in the way of functioning. She takes Valium only if needed for severe episodes of anxiety. Discussed the possibility of Gabapentin at bedtime contributing to more fatigue and drowsiness. Patient is in agreement to try a decrease in dose. She has been concerned about nerve pain and was wondering of options to address that. Encouraged to discuss this with her primary care team. Patient has not had a physical in a long time. Discussed the importance of addressing physical health issues. Interval Progress: Slightly improved. Notable improvement in ZAIRE-7 and PHQ-9 scores. PATIENT DATA: Generalized Anxiety Disorder Scale (ZAIRE-7) 10/20/2023 11/27/2023 01/08/2024 ZAIRE - 7 SCORES Score 12 11 8 (0-4) minimal anxiety, (5-9) mild anxiety, (10-14) moderate anxiety, (15-21) severe anxiety Patient Health Questionnaire (PHQ-9) 10/20/2023 11/27/2023 01/08/2024 PHQ-9 Score 6 8 6 (0-4) minimal depression, (5-9) mild depression, (10-14) moderate depression, (15-19) moderately severe depression, (20-27) severe depression PAST MEDICAL HISTORY Diagnosis Date Abnormal glandular Papanicolaou smear of cervix 2001 Abn. Pap smear (cervix),ASCUS Anxiety Bulging disc L5 Chlamydia 2001 Galactorrhea not associated with childbirth Goiter 03/04/2015 Headache History of migraine Mastodynia Nerve damage right leg hemorrhage 2001 RECURRENT UTI WITH PREGNANCIES Rh negative state in antepartum period 05/26/2012 Tobacco use disorder PAST SURGICAL HISTORY Procedure Laterality Date DILATION & CURETTAGE DX&/THER NONOBSTETRIC Dilation & curettage ESSURE SALPINGECTOMY Bilateral 06/19/15 TONSILLECTOMY & ADENOIDECTOMY <AGE 12 VAGINAL HYSTERECTOMY UTERUS 250 GM/< 06/19/15 [facility] ALLERGIES Allergen Reactions Cats SNEEZING,WATERY EYES Dog Hair Anaphylaxis SNEEZING, WATERY EYES Sulfa (Sulfonamide * Hives Current Outpatient Medications on File Prior to Visit Medication Sig lurasidone (LATUDA) 40 mg tablet Take 1 tablet by mouth daily with food. Take with atleast 300 calories. prazosin (MINIPRESS) 1 mg cap Take 1 capsule by mouth daily at bedtime. albuterol HFA (PROVENTIL HFA, VENTOLIN HFA) 90 mcg/actuation inhaler Inhale 2 Puffs as instructed every 4 hours as needed for wheezing/shortness of breath. predniSONE (DELTASONE) 10 mg tablet Take 4 tabs daily for 3 days, then 2 tabs daily for 3 days, then 1 tab daily for 3 days with food. dicyclomine (BENTYL) 10 mg capsule TAKE 1 CAPSULE THREE TIMES DAILY BEFORE MEALS albuterol HFA (PROAIR HFA) 90 mcg/actuation inhaler Inhale 1-2 Puffs as instructed every 4 hours as needed. gabapentin (NEURONTIN) 300 mg capsule Take 1 capsule by mouth every morning AND 2 capsules daily at bedtime. Do all this for 30 days. No current facility-administered medications on file prior to visit. ROS: See HPI PFSH: See HPI VITAL SIGNS: There were no vitals filed for this visit. Last 3 Encounter BP Readings: Date: BP: 11/24/2023 100/76 08/23/2017 112/68 06/25/2017 96/58 MENTAL STATUS EXAMINATION: Mental Status Exam General/Sensorium: Alert Orientation: AAOx3 Appearance: Casually dressed Eye contact: Appropriate Demeanor: Appropriately interactive Motor activity: Normal Speech: Articulate with appropriate rhythm and volume Mood: Anxious and sad Affect: Congruent with mood Thought process: Linear, logical, and goal-directed Associations: Normal Thought content: Discussing stressors and focused on history, symptoms, and management Suicidal ideation: SI: no Plan: no Intent: no Homicidal ideation: HI: no Plan: no Intent: no Abnormal/psychotic thoughts: Absent Perceptions: She does not appear internally stimulated. Intelligence: Average Attention: Intact Memory: Short-term: Intact Long-term: Intact Language: Intact Fund of knowledge: Fair Insight: Fair Judgment: Fair Gait: Not observed Station: Sitting DATA REVIEWED: Psychiatric scales, Electronic medical record, Labs, and PDMP report. PDMP website checked and validated. All prescriptions have been APPROPRIATELY filled. No suspicious activity was identified. 2024 by Kinsey Levine APRN.RESEARCH CHEMICAL ENGINEER DIAGNOSIS: Bipolar 2 disorder (hcc) (primary encounter diagnosis) [place] (generalized anxiety disorder) Metabolic syndrome Elevated liver enzymes Irritability Abnormal hemoglobin (hcc) GAF: -60-51 Moderate symptoms or moderate difficulty in social, occupational or school functioning. TREATMENT PLAN: Decrease Gabapentin at bedtime to see if that improves her excessive sleepiness and fatigue related side effects. Continue Latuda and Minipress at the same dose. Waiting on monitoring lab results as patient completed the lab work this morning. Encouraged to schedule a physical with her primary care team due to patient verbalizes various health issues that have not been addressed or discussed due to her anxiety about scheduling and attending doctor's appointments. Continue to engage in increasing physical activity as tolerated. Continue to engage in exposure therapy by increasing her time and distance with driving. MEDICATION CHANGES: See above Risks and benefits of the medication, including any black box warnings, were discussed with the patient. Patient is aware to reach out with any questions, concerns, or worsening of symptoms prior to the next appointment. Patient educated on risks of substance use in combination with medications and advised that any substance use along with medications may alter their effectiveness. Patient denies any involuntary movement related to Latuda. Follow Up: 2 months I spent a total of 45 minutes on the date of the service which included preparing to see the patient, [id number] patient care, completing clinical documentation, and counseling and educating the patient/family/caregiver, ordering medications/labs, and communication with other health care providers. ADD ON PSYCHOTHERAPY CODE : No SIGNATURE: Kinsey Levine APRN.CNP PATIENT NAME: Kristel Chilel DATE: 2024 TIME: 9:33 AM documented in this encounter [facility] 11-28-2023 Note HNO ID: [id number] Author: KINSEY LEVINE APRN.CNP Service: ? Author Type: Nurse Practitioner Type: Progress Notes Filed: 11/29/2023 00:28 Note Text: FOLLOW UP - PSYCHIATRIC PROGRESS NOTE PATIENT: Kristel Chilel DATE: November 28, 2023 Visit Type: Virtual Visit utilizing two-way audio and video for at least a portion of the visit. Consent for virtual visit obtained verbally. Confidentiality limitations with virtual visits reviewed with the patient and guardian, if present, who have accepted the risk verbally prior to proceeding with encounter. I have communicated my name and active licensure. The patient's identity and physical location were verified at the time of this visit. Either the patient or their legal manufacturer's representative has been informed of the risks and benefits of -- and alternatives to -- treatment through a remote evaluation and consents to proceed with the evaluation remotely. All information is from Patient report except when noted. This evaluation is NOT intended for forensic, disability or child custody purposes. Some elements were copied from the previous note which have been updated where appropriate and reflect current decision making from today November 28, 2023. CC: Presenting today for follow up regarding psychiatric medication management. HPI: Treatment Plan from Last Visit on 10/21/2023: Decrease and discontinue Zyprexa over a course of 8 days due to elevation in liver enzymes and metabolic side effects. Start Latuda instead to address patient's mood disorder. Take Gabapentin only twice a day and a higher dose at bedtime due to patient being concerned of fatigue related side effects. Does report efficacy of Gabapentin in managing her anxiety and muscle spasms and would like to continue to the medication at this time. Utilize Diazepam as needed to manage severe anxiety symptoms. Continue Prazosin at the same dose to address trauma related nightmares. Repeat lab work in 4 weeks to check for decrease in liver enzymes and improvement in metabolic side effects. Today Kristel shares that she has been sick since Last Tuesday. Has ear infection and bronchitis. Notices that her chest feels better and wonders if anti-biotics are starting to help. She has been able to get out of the house more now. Went to the store 3 times last week. Has been driving more. She felt that she has been pushing herself more as she was feeling left out with family. Her eldest daughter has been diagnosed with essential tremor. Patient's head does shake and she was thinking that it might be going on with her too as it is genetic. Shares that she is going to push herself and is going to go see her PCP in person for an eval. She has not had an in person visit in a while. She has been noticing that she is extra tired. Changing the Gabapentin time and dose has not made a difference. Wonders if some of that could also be related to her being sick for the past week. She has not had any nightmares since starting the Prazosin. Has tolerated Latuda at 40 mg. Does take it with food. From the examples that she verbalized, it seemed that she was not taking it with adequate calories. Education resource regarding that will be sent to the patient. Noticed that some of her nausea has returned. Discussed that Zyprexa may have been helping the nausea. She has to take some Pepto to help with the symptoms. She has been working on cut back her soda intake. Also noticed that they cook foods with a lot of salt and is going to work on reducing that in cooking. She has been concerned about one of her daughters being borderline diabetic. Reviewed patient's lab results. Noticed improvement in her labs since discontinuing Zyprexa. Will continue to monitor her lab work. She only takes Diazepam for severe anxiety symptoms. Interval Progress: Slightly improved PATIENT DATA: Generalized Anxiety Disorder Scale (ZAIRE-7) 09/16/2023 10/20/2023 11/27/2023 ZAIRE - 7 SCORES Score 6 12 11 (0-4) minimal anxiety, (5-9) mild anxiety, (10-14) moderate anxiety, (15-21) severe anxiety Patient Health Questionnaire (PHQ-9) 09/16/2023 10/20/2023 11/27/2023 PHQ-9 Score 6 6 8 (0-4) minimal depression, (5-9) mild depression, (10-14) moderate depression, (15-19) moderately severe depression, (20-27) severe depression PAST MEDICAL HISTORY Diagnosis Date Abnormal glandular Papanicolaou smear of cervix 2001 Abn. Pap smear (cervix),ASCUS Anxiety Bulging disc L5 Chlamydia 2001 Galactorrhea not associated with childbirth Goiter 03/04/2015 Headache History of migraine Mastodynia Nerve damage right leg hemorrhage 2002 RECURRENT UTI WITH PREGNANCIES Rh negative state in antepartum period 05/26/2012 Tobacco use disorder PAST SURGICAL HISTORY Procedure Laterality Date DILATION AND CURETTAGE DXAND/THER NONOBSTETRIC Dilation AND curettage ESSURE SALPINGECTOMY (more content not included)... [facility] 11-28-2023 History of Presen t illness Narrative Images from the original note were not included. FOLLOW UP - PSYCHIATRIC PROGRESS NOTE PATIENT: Kristel Chilel DATE: November 28, 2023 Visit Type: Virtual Visit utilizing two-way audio and video for at least a portion of the visit. Consent for virtual visit obtained verbally. Confidentiality limitations with virtual visits reviewed with the patient and guardian, if present, who have accepted the risk verbally prior to proceeding with encounter. I have communicated my name and active licensure. The patient's identity and physical location were verified at the time of this visit. Either the patient or their legal manufacturer's representative has been informed of the risks and benefits of -- and alternatives to -- treatment through a remote evaluation and consents to proceed with the evaluation remotely. All information is from Patient report except when noted. This evaluation is NOT intended for forensic, disability or child custody purposes. Some elements were copied from the previous note which have been updated where appropriate and reflect current decision making from today November 28, 2023. CC: Presenting today for follow up regarding psychiatric medication management. HPI: Treatment Plan from Last Visit on 10/21/2023: Decrease and discontinue Zyprexa over a course of 8 days due to elevation in liver enzymes and metabolic side effects. Start Latuda instead to address patient's mood disorder. Take Gabapentin only twice a day and a higher dose at bedtime due to patient being concerned of fatigue related side effects. Does report efficacy of Gabapentin in managing her anxiety and muscle spasms and would like to continue to the medication at this time. Utilize Diazepam as needed to manage severe anxiety symptoms. Continue Prazosin at the same dose to address trauma related nightmares. Repeat lab work in 4 weeks to check for decrease in liver enzymes and improvement in metabolic side effects. Today Kristel shares that she has been sick since Last Tuesday. Has ear infection and bronchitis. Notices that her chest feels better and wonders if anti-biotics are starting to help. She has been able to get out of the house more now. Went to the store 3 times last week. Has been driving more. She felt that she has been pushing herself more as she was feeling left out with family. Her eldest daughter has been diagnosed with essential tremor. Patient's head does shake and she was thinking that it might be going on with her too as it is genetic. Shares that she is going to push herself and is going to go see her PCP in person for an eval. She has not had an in person visit in a while. She has been noticing that she is extra tired. Changing the Gabapentin time and dose has not made a difference. Wonders if some of that could also be related to her being sick for the past week. She has not had any nightmares since starting the Prazosin. Has tolerated Latuda at 40 mg. Does take it with food. From the examples that she verbalized, it seemed that she was not taking it with adequate calories. Education resource regarding that will be sent to the patient. Noticed that some of her nausea has returned. Discussed that Zyprexa may have been helping the nausea. She has to take some Pepto to help with the symptoms. She has been working on cut back her soda intake. Also noticed that they cook foods with a lot of salt and is going to work on reducing that in cooking. She has been concerned about one of her daughters being borderline diabetic. Reviewed patient's lab results. Noticed improvement in her labs since discontinuing Zyprexa. Will continue to monitor her lab work. She only takes Diazepam for severe anxiety symptoms. Interval Progress: Slightly improved PATIENT DATA: Generalized Anxiety Disorder Scale (ZAIRE-7) 09/16/2023 10/20/2023 11/27/2023 ZAIRE - 7 SCORES Score 6 12 11 (0-4) minimal anxiety, (5-9) mild anxiety, (10-14) moderate anxiety, (15-21) severe anxiety Patient Health Questionnaire (PHQ-9) 09/16/2023 10/20/2023 11/27/2023 PHQ-9 Score 6 6 8 (0-4) minimal depression, (5-9) mild depression, (10-14) moderate depression, (15-19) moderately severe depression, (20-27) severe depression PAST MEDICAL HISTORY Diagnosis Date Abnormal glandular Papanicolaou smear of cervix 2001 Abn. Pap smear (cervix),ASCUS Anxiety Bulging disc L5 Chlamydia 2001 Galactorrhea not associated with childbirth Goiter 03/04/2015 Headache History of migraine Mastodynia Nerve damage right leg hemorrhage 2001 RECURRENT UTI WITH PREGNANCIES Rh negative state in antepartum period 05/26/2012 Tobacco use disorder PAST SURGICAL HISTORY Procedure Laterality Date DILATION & CURETTAGE DX&/THER NONOBSTETRIC Dilation & curettage ESSURE SALPINGECTOMY Bilateral 06/19/15 TONSILLECTOMY & ADENOIDECTOMY <AGE 12 VAGINAL HYSTERECTOMY UTERUS 250 GM/< 06/19/15 [facility] ALLERGIES Allergen Reactions Cats SNEEZING,WATERY EYES Dog Hair Anaphylaxis SNEEZING, WATERY EYES Sulfa (Sulfonamide * Hives Current Outpatient Medications on File Prior to Visit Medication Sig albuterol HFA (PROVENTIL HFA, VENTOLIN HFA) 90 mcg/actuation inhaler Inhale 2 Puffs as instructed every 4 hours as needed for wheezing/shortness of breath. predniSONE (DELTASONE) 10 mg tablet Take 4 tabs daily for 3 days, then 2 tabs daily for 3 days, then 1 tab daily for 3 days with food. Gnfdilsqccvfisl-Astlcobpw-JU (BROMFED DM) 2-30-10 mg/5 mL syrup Take 5 mL by mouth four times a day as needed. amoxicillin-clavulanate potassium (AUGMENTIN) 875-125 mg per tablet Take 1 tablet by mouth two times a day for 7 days. OLANZapine (ZYPREXA) 5 mg tablet Take 1 tablet by mouth daily at bedtime for 4 days, THEN 0.5 tablets daily at bedtime for 4 days. Discontinue after 8 days.. lurasidone (LATUDA) 20 mg tablet Take 1 tablet by mouth daily with food for 7 days. Take with atleast 300 calories a day. lurasidone (LATUDA) 40 mg tablet Take 1 tablet by mouth daily with food. Start after 7 days of 20 mg and take medication with 300 calories of food. gabapentin (NEURONTIN) 300 mg capsule Take 1 capsule by mouth every morning AND 2 capsules daily at bedtime. Do all this for 30 days. dicyclomine (BENTYL) 10 mg capsule TAKE 1 CAPSULE THREE TIMES DAILY BEFORE MEALS albuterol HFA (PROAIR HFA) 90 mcg/actuation inhaler Inhale 1-2 Puffs as instructed every 4 hours as needed. No current facility-administered medications on file prior to visit. ROS: See HPI PFSH: See HPI VITAL SIGNS: There were no vitals filed for this visit. Last 3 Encounter BP Readings: Date: BP: 11/24/2023 100/76 08/23/2017 112/68 06/25/2017 96/58 MENTAL STATUS EXAMINATION: Mental Status Exam General/Sensorium: Alert Orientation: AAOx3 Appearance: Casually dressed Eye contact: Appropriate Demeanor: Appropriately interactive Motor activity: Normal Speech: Articulate with appropriate rhythm and volume Mood: Anxious and sad Affect: Congruent with mood Thought process: Linear, logical, and goal-directed Associations: Normal Thought content: Discussing stressors and focused on history, symptoms, and management Suicidal ideation: SI: no Plan: no Intent: no Homicidal ideation: HI: no Plan: no Intent: no Abnormal/psychotic thoughts: Absent Perceptions: She does not appear internally stimulated. Intelligence: Average Attention: - fair Memory: Short-term: Intact Long-term: Intact Language: Intact Fund of knowledge: Fair Insight: Fair Judgment: Fair Gait: Not observed Station: Sitting DATA REVIEWED: Psychiatric scales, Electronic medical record, Labs, and PDMP report. PDMP website checked and validated. All prescriptions have been APPROPRIATELY filled. No suspicious activity was identified. 11/28/2023 by Kinsey Levine APRN.RESEARCH CHEMICAL ENGINEER DIAGNOSIS: Bipolar 2 disorder Generalized Anxiety Disorder Metabolic Syndrome - related to Zyprexa (which has been discontinued). Elevated Liver Enzymes - related to Zyprexa (which has been discontinued). GAF: -60-51 Moderate symptoms or moderate difficulty in social, occupational or school functioning. TREATMENT PLAN: Continue Latuda at the 40 mg dose. Reminded patient to ensure that she is taking it with 300 calories. Continue the rest of the psychiatric medications at the same dose. Complete monitoring lab work in 4 weeks. Utilize Diazepam as needed to manage severe anxiety symptoms. MEDICATION CHANGES: See above. Risks and benefits of the medication, including any black box warnings, were discussed with the patient. Patient is aware to reach out with any questions, concerns, or worsening of symptoms prior to the next appointment. Patient educated on risks of substance use in combination with medications and advised that any substance use along with medications may alter their effectiveness. Follow Up: 6 weeks I spent a total of 48 minutes on the date of the service which included preparing to see the patient, [id number] patient care, completing clinical documentation, and counseling and educating the patient/family/caregiver, ordering medications/labs. ADD ON PSYCHOTHERAPY CODE : No SIGNATURE: Kinsey Levine APRN.CNP PATIENT NAME: Kristel Chilel DATE: November 28, 2023 TIME: 10:38 AM documented in this encounter [facility] 11-24-2023 Telephone encounter Note Talked to patient and she verbally understands to cont meds and make an appt with PCP if symptoms continue. Garret Lopez [facility] 11-24-2023 Miscellaneous Notes Talked to patient and she verbally understands to cont meds and make an appt with PCP if symptoms continue. Garret Lopez CXR negative for pneumonia. Please notify patient. Continue medicines prescribed, follow up with DR. Conde if sx persist. documented in this encounter [facility] 11-24-2023 Telephone encounter Note CXR negative for pneumonia. Please notify patient. Continue medicines prescribed, follow up with DR. Conde if sx persist. [facility] 11-24-2023 History of Presen t illness Narrative Radiology Service Progress Note PATIENT NAME: Kristel Chilel DATE OF SERVICE: November 24, 2023 TIME: 1:30 PM PATIENT IDENTITY VERIFICATION COMPLETED USING TWO (2) IDENTIFIERS: Name and Date of confirmed by patient verbally. FALL SCREENING: Has the patient had 2 falls in the last year or 1 fall with injury or currently using an Ambulatory Assistive Device (Walker, Cane, Wheelchair, Crutches, etc.)? No PATIENT GENDER DATA: Female. status: : No status: NO. PATIENT RELEVANT IMPLANT DATA REVIEWED: Yes PATIENT PRESENTS WITH AN IMPLANTABLE OR ATTACHED CHAIR SPRING ASSEMBLER: No RADIOLOGY DEPARTMENT: General X-ray: Exam(s) Completed: Chest X-Ray PERIPHERAL IV DATA: Not applicable SIGNED BY: RT Christie(Mariya) November 24, 2023 1:30 PM documented in this encounter [facility] 11-24-2023 Note HNO ID: [id number] Author: MICHAEL SHIPLEY RT(R) Service: ? Author Type: Test Rider Type: Progress Notes Filed: 11/24/2023 13:37 Note Text: Radiology Service Progress Note PATIENT NAME: Kristel Chilel DATE OF SERVICE: November 24, 2023 TIME: 1:30 PM PATIENT IDENTITY VERIFICATION COMPLETED USING TWO (2) IDENTIFIERS: Name and Date of confirmed by patient verbally. FALL SCREENING: Has the patient had 2 falls in the last year or 1 fall with injury or currently using an Ambulatory Assistive Device (Walker, Cane, Wheelchair, Crutches, etc.)? No PATIENT GENDER DATA: Female. status: : No status: NO. PATIENT RELEVANT IMPLANT DATA REVIEWED: Yes PATIENT PRESENTS WITH AN IMPLANTABLE OR ATTACHED CHAIR SPRING ASSEMBLER: No RADIOLOGY DEPARTMENT: General X-ray: Exam(s) Completed: Chest X-Ray PERIPHERAL IV DATA: Not applicable SIGNED BY: RT Christie(Mariya) November 24, 2023 1:30 PM [facility] 11-24-2023 Telephone encounter Note Reached out and spoke with patient. Patient has not had CXR I will be there any minute In terms of the cough medicine, Discussed she can use Robitussin or Delsym [facility] 11-24-2023 Miscellaneous Notes Reached out and spoke with patient. Patient has not had CXR I will be there any minute In terms of the cough medicine, Discussed she can use Robitussin or Delsym Pt seen in today & states she was dx'd with pneumonia, was given prescriptions but states the Bromfed & the spacer for the albuterol was not covered by her insurance. Pt states she isn't worried about the spacer but can not afford to pay out of pocket for Bromfed. She also states she has taken benzonatate perles in the past & they are not effective. Pt asking for a different cough medication. [facility]. Trudi Crandall LPN documented in this encounter [facility] 11-24-2023 Telephone encounter Note Pt seen in today & states she was dx'd with pneumonia, was given prescriptions but states the Bromfed & the spacer for the albuterol was not covered by her insurance. Pt states she isn't worried about the spacer but can not afford to pay out of pocket for Bromfed. She also states she has taken benzonatate perles in the past & they are not effective. Pt asking for a different cough medication. [facility]. Trudi Crandall LPN [facility] 11-24-2023 Note HNO ID: [id number] Author: JOCY SCHULTZ APRN.[facility] Service: ? Author Type: Nurse Practitioner Type: Progress Notes Filed: 11/24/2023 11:14 Note Text: This note was created using [employer]riter. Subjective Kristel Chilel is a 38 year old female. Kristel Chilel is a 38 year old female with a PMH of childhood asthma presenting today for complaints of a productive cough for 4 days. She states that she is confident she has bronchitis. She states that the cough is deep feeling and she produces brown sputum. She states that she will be gasping for air during coughing episodes and at one point almost was incontinent of urine. She endorses a sore throat, body aches,wheezing, congestion, rhinorrhea, chills, fever, diaphoresis, fatigue, and sleep disturbances. She states she usually has an inhaler that helps with her cough but she ran out. She states that heat aggravates her symptoms and that she feels better in the cold. She has tried OTC cold and flu medication, tylenol, aleve, tessalon pearls to no relief. There waspotentially interaction with a sick contact, she states she gets sick anytime someone else is sick. She is a smoker. No history of COPD. Pertinent negatives: -vomiting -diarrhea -chest pain Pertinent positives: +shortness of breath +wheezing +productive cough +nausea +chills +diaphoresis +body aches +fatigue +sleep disturbance +eye dryness +ear congestion +ear pain +sore throat +rhinorrhea +sneezing +congestion The history is provided by the patient and a friend. Cough This is a new problem. The current episode started more than 2 days ago. The problem occurs constantly. The problem has been gradually worsening. The cough is Productive of brown sputum. The maximum temperature recorded prior to her arrival was 101 to 101.9 F. The fever has been present for 1 to 2 days. Associated symptoms include chills, sweats, ear congestion, ear pain, rhinorrhea, sore throat, myalgias, shortness of breath and wheezing. Pertinent negatives include no chest pain, no weight loss, no headaches and no eye redness. She has tried decongestants (Tylenol, Aleve, tessalon pearls) for the symptoms. The treatment provided no relief. She is a smoker. Her past medical history is significant for asthma. Her past medical history does not include bronchitis, pneumonia, bronchiectasis, COPD or emphysema. Past medical history comments: childhood asthma. PAST MEDICAL HISTORY Diagnosis Date Abnormal glandular Papanicolaou smear of cervix 2001 Abn. Pap smear (cervix),ASCUS Anxiety Bulging disc L5 Chlamydia 2001 Galactorrhea not associated with childbirth Goiter 03/04/2015 Headache History of migraine Mastodynia Nerve damage right leg hemorrhage 2002 RECURRENT UTI WITH PREGNANCIES Rh negative state in antepartum period 05/26/2012 Tobacco use disorder PAST SURGICAL HISTORY Procedure Laterality Date DILATION AND CURETTAGE DXAND/THER NONOBSTETRIC Dilation AND curettage ESSURE SALPINGECTOMY Bilateral 06/19/15 TONSILLECTOMY AND ADENOIDECTOMY VAGINAL HYSTERECTOMY UTERUS 250 GM/< 06/19/15 [facility] ALLERGIES Cats, Dog Hair, and Sulfa (Sulfonamide Antibiotics) MEDICATIONS OLANZapine (ZYPREXA) 5 mg tablet Take 1 tablet by mouth daily at bedtime for 4 days, THEN 0.5 tablets daily at bedtime for 4 days. Discontinue after 8 days.. lurasidone (LATUDA) 20 mg tablet Take 1 tablet by mouth daily with food for 7 days. Take with atleast 300 calories a day. lurasidone (LATUDA) 40 mg tablet Take 1 tablet by mouth daily with food. Start after 7 days of 20 mg and take medication with 300 calories of food. gabapentin (NEURONTIN) 300 mg capsule Take 1 capsule by mouth every morning AND 2 capsules daily at bedtime. Do all this for 30 days. dicyclomine (BENTYL) 10 mg capsule TAKE 1 CAPSULE THREE TIMES DAILY BEFORE MEALS albuterol HFA (PROAIR HFA) 90 mcg/actuation inhaler Inhale 1-2 Puffs as instructed every 4 hours as needed. albuterol HFA (PROVENTIL HFA, VENTOLIN HFA) 90 mcg/actuation inhaler Inhale 2 Puffs as instructed every 4 hours as needed for wheezing/shortness of breath. Inhalational Spacing Device 1 Device one time only for 1 dose. predniSONE (DELTASONE) 10 mg tablet Take 4 tabs daily for 3 days, then 2 tabs daily for 3 days, then 1 tab daily for 3 days with food. Pxbrnzjrtgeeafq-Bcfauzzrn-WB (BROMFED DM) 2-30-10 mg/5 mL syrup Take 5 mL by mouth four times a day as needed. amoxicillin-clavulanate potassium (AUGMENTIN) 875-125 mg per tablet Take 1 tablet by mouth two times a day for 7 days. FAMILY HISTORY Problem Relation Age of Onset Heart Mother Heart Sister has had repair of defect Breast Cancer Maternal Aunt Asthma Mother Hypertension Mother Aneurysm Mother 66 brain Social History Tobacco Use Smoking status: Every Day Packs/day: 1.00 Years: 16.00 Additional pack years: 0.00 Total pack years: 16.00 Typ (more content not included)... [facility] 11-24-2023 History of Presen t illness Narrative This note was created using [employer]. Subjective Kristel Chilel is a 38 year old female. Kristel Chilel is a 38 year old female with a PMH of childhood asthma presenting today for complaints of a productive cough for 4 days. She states that she is confident she has bronchitis. She states that the cough is deep feeling and she produces brown sputum. She states that she will be gasping for air during coughing episodes and at one point almost was incontinent of urine. She endorses a sore throat, body aches,wheezing, congestion, rhinorrhea, chills, fever, diaphoresis, fatigue, and sleep disturbances. She states she usually has an inhaler that helps with her cough but she ran out. She states that heat aggravates her symptoms and that she feels better in the cold. She has tried OTC cold and flu medication, tylenol, aleve, tessalon pearls to no relief. There was potentially interaction with a sick contact, she states she gets sick anytime someone else is sick. She is a smoker. No history of COPD. Pertinent negatives: -vomiting -diarrhea -chest pain Pertinent positives: +shortness of breath +wheezing +productive cough +nausea +chills +diaphoresis +body aches +fatigue +sleep disturbance +eye dryness +ear congestion +ear pain +sore throat +rhinorrhea +sneezing +congestion The history is provided by the patient and a friend. Cough This is a new problem. The current episode started more than 2 days ago. The problem occurs constantly. The problem has been gradually worsening. The cough is Productive of brown sputum. The maximum temperature recorded prior to her arrival was 101 to 101.9 F. The fever has been present for 1 to 2 days. Associated symptoms include chills, sweats, ear congestion, ear pain, rhinorrhea, sore throat, myalgias, shortness of breath and wheezing. Pertinent negatives include no chest pain, no weight loss, no headaches and no eye redness. She has tried decongestants (Tylenol, Aleve, tessalon pearls) for the symptoms. The treatment provided no relief. She is a smoker. Her past medical history is significant for asthma. Her past medical history does not include bronchitis, pneumonia, bronchiectasis, COPD or emphysema. Past medical history comments: childhood asthma. PAST MEDICAL HISTORY Diagnosis Date Abnormal glandular Papanicolaou smear of cervix 2001 Abn. Pap smear (cervix),ASCUS Anxiety Bulging disc L5 Chlamydia 2001 Galactorrhea not associated with childbirth Goiter 03/04/2015 Headache History of migraine Mastodynia Nerve damage right leg hemorrhage 2001 RECURRENT UTI WITH PREGNANCIES Rh negative state in antepartum period 05/26/2012 Tobacco use disorder PAST SURGICAL HISTORY Procedure Laterality Date DILATION & CURETTAGE DX&/THER NONOBSTETRIC Dilation & curettage ESSURE -2013 SALPINGECTOMY Bilateral 06/19/15 TONSILLECTOMY & ADENOIDECTOMY <AGE 12 VAGINAL HYSTERECTOMY UTERUS 250 GM/< 06/19/15 [facility] ALLERGIES Cats, Dog Hair, and Sulfa (Sulfonamide Antibiotics) MEDICATIONS OLANZapine (ZYPREXA) 5 mg tablet Take 1 tablet by mouth daily at bedtime for 4 days, THEN 0.5 tablets daily at bedtime for 4 days. Discontinue after 8 days.. lurasidone (LATUDA) 20 mg tablet Take 1 tablet by mouth daily with food for 7 days. Take with atleast 300 calories a day. lurasidone (LATUDA) 40 mg tablet Take 1 tablet by mouth daily with food. Start after 7 days of 20 mg and take medication with 300 calories of food. gabapentin (NEURONTIN) 300 mg capsule Take 1 capsule by mouth every morning AND 2 capsules daily at bedtime. Do all this for 30 days. dicyclomine (BENTYL) 10 mg capsule TAKE 1 CAPSULE THREE TIMES DAILY BEFORE MEALS albuterol HFA (PROAIR HFA) 90 mcg/actuation inhaler Inhale 1-2 Puffs as instructed every 4 hours as needed. albuterol HFA (PROVENTIL HFA, VENTOLIN HFA) 90 mcg/actuation inhaler Inhale 2 Puffs as instructed every 4 hours as needed for wheezing/shortness of breath. Inhalational Spacing Device 1 Device one time only for 1 dose. predniSONE (DELTASONE) 10 mg tablet Take 4 tabs daily for 3 days, then 2 tabs daily for 3 days, then 1 tab daily for 3 days with food. Yiklflftlqmrwwx-Bzflrxgbv-EY (BROMFED DM) 2-30-10 mg/5 mL syrup Take 5 mL by mouth four times a day as needed. amoxicillin-clavulanate potassium (AUGMENTIN) 875-125 mg per tablet Take 1 tablet by mouth two times a day for 7 days. FAMILY HISTORY Problem Relation Age of Onset Heart Mother Heart Sister has had repair of defect Breast Cancer Maternal Aunt Asthma Mother Hypertension Mother Aneurysm Mother 66 brain Social History Tobacco Use Smoking status: Every Day Packs/day: 1.00 Years: 16.00 Additional pack years: 0.00 Total pack years: 16.00 Types: Cigarettes Smokeless tobacco: Never Substance Use Topics Alcohol use: Yes Comment: occasionally,NOT WHILE Drug use: No Review of Systems Constitutional: Positive for chills, diaphoresis, fatigue and fever. Negative for appetite change and weight loss. HENT: Positive for congestion, ear discharge, ear pain, postnasal drip, rhinorrhea, sneezing and sore throat. Negative for hearing loss, sinus pressure and sinus pain. Eyes: Positive for itching. Negative for pain, discharge and redness. Respiratory: Positive for cough, shortness of breath and wheezing. Negative for chest tightness and stridor. Cardiovascular: Negative for chest pain and palpitations. Gastrointestinal: Positive for nausea. Negative for constipation, diarrhea and vomiting. Genitourinary: Almost incontinent during a coughing episode Musculoskeletal: Positive for myalgias. Neurological: Negative for headaches. Objective BP 100/76 Pulse 98 Temp 36.4 C (97.6 F) Resp 19 Wt 81.5 kg (179 lb 10.8 oz) LMP 04/30/2015 (Approximate) SpO2 97% BMI 33.95 kg/m Physical Exam Constitutional: General: She is not in acute distress. Appearance: Normal appearance. She is not toxic-appearing. HENT: Head: Normocephalic and atraumatic. Right Ear: Hearing normal. Drainage and tenderness present. Tympanic membrane is erythematous. Left Ear: Hearing, tympanic membrane and ear canal normal. Drainage and tenderness present. Ears: Comments: Bilateral external ears TTP. Right TM erythematous. Mouth/Throat: Mouth: Mucous membranes are moist. Pharynx: Uvula midline. Posterior oropharyngeal erythema present. No pharyngeal swelling, oropharyngeal exudate or uvula swelling. Tonsils: No tonsillar exudate or tonsillar abscesses. Eyes: General: Right eye: No discharge. Left eye: No discharge. Conjunctiva/sclera: Conjunctivae normal. Cardiovascular: Rate and Rhythm: Normal rate and regular rhythm. Heart sounds: Normal heart sounds. No murmur heard. No friction rub. No gallop. Pulmonary: Effort: Pulmonary effort is normal. No respiratory distress. Breath sounds: Normal breath sounds. No stridor. No wheezing, rhonchi or rales. Comments: Pt coughed before auscultation. Chest: Chest wall: No tenderness. Musculoskeletal: Cervical back: Tenderness present. Lymphadenopathy: Cervical: No cervical adenopathy. Skin: General: Skin is warm. Neurological: Mental Status: She is alert. Psychiatric: Mood and Affect: Mood normal. Behavior: Behavior normal. Thought Content: Thought content normal. Judgment: Judgment normal. Assessment and Plan ASSESSMENT/PLAN: 1. URI, acute - ICD9: 465.9, ICD10: J06.9 (primary diagnosis) Productive cough with brown sputum for 4 days. Fever, diaphoresis, chills, nausea, fatigue. Rx prednisone, bromfed, albuterol - XR CHEST 2V FRONTAL/LAT - ordered but xray down for maintenance, patient states she will return later in the afternoon for chest xray. - Discussed viral etiology and rationale for treatment. - Symptomatic treatment with prn analgesia - Supportive care with fluids and rest Discussed red flags 2. Acute cough - ICD9: 786.2, ICD10: R05.1 Productive cough with brown sputum for 4 days. Fever, diaphoresis, chills, nausea, fatigue. Rx prednisone, bromfed, albuterol - XR CHEST 2V FRONTAL/LAT -n 3. Acute otitis media, right - ICD9: 382.9, ICD10: H66.91 - Will begin treatment with Augmentin 875 mg PO BID for 7 days - Supportive care with plenty of fluids, rest, and analgesia prn. Jenelle Glez TEACHING PROVIDER (Physician/PA/ELECTRICAL APPLIANCE MECHANIC) NOTE OF PERSONAL INVOLVEMENT IN CARE: I have personally seen and examined the patient and performed the medical decision-making components. I have reviewed the Advanced Practice Registered Nurse (ELECTRICAL APPLIANCE MECHANIC) Student's documentation and verified the findings in the note as written. Any additions or changes are noted in bold/italics. Signature: Jocy Schultz Date: 11/24/2023 Time: 11:14 AM documented in this encounter [facility] 11-21-2023 Telephone encounter Note Pt called in to check if okay to wait a couple days to get fasting blood work done. Pt reports not feeling well and running a fever. Pt reports she was to have blood work done 30 days from her last blood work. Per Kinsey's nurse that will be fine and nurse will let Kinsey know. Pt will need to get lab work done this week. Pt notified with this information and will get done this week. Marcial Mcgovern LPN [facility] 11-21-2023 Miscellaneous Notes Pt called in to check if okay to wait a couple days to get fasting blood work done. Pt reports not feeling well and running a fever. Pt reports she was to have blood work done 30 days from her last blood work. Per Kinsey's nurse that will be fine and nurse will let Kinsey know. Pt will need to get lab work done this week. Pt notified with this information and will get done this week. Marcial Mcgovern LPN documented in this encounter [facility] 10-21-2023 Instructions Kinsey Levine APRN.RESEARCH CHEMICAL ENGINEER - 10/21/2023 11:13 PM EDT Marilee Humphries, It was good to talk with you. Below is a summary of the plan that we discussed during your appointment for reference. Of course, if you have any questions or concerns do not hesitate to reach out to me via a message or call. Kinsey Pal APRN.CNP PLAN AND FOLLOW UP: 1) Zyprexa 5 mg - take 1 tablet every night at bedtime for 4 days, then take 1/2 tablet at bedtime for 4 days and then stop. 2) Latuda 20 mg - take 1 tablet once daily with 300 calories of food for 7 days. 3) Latuda 40 mg - After completing 7 days of Latuda 20 mg, take 1 tablet of Latuda 40 mg once daily with 300 calories of food. 4) Continue Prazosin at the same dose at bedtime to address anxiety symptoms. 5) Gabapentin 300 mg - take 1 capsule every morning and then take 2 capsules at bedtime. 6) Utilize Diazepam 5 mg once daily if needed to address severe anxiety symptoms. Make sure to complete the fasting lab in 4 weeks. For those experiencing a suicidal crisis: --call the National Suicide Prevention Lifeline at 988 (920.922.8029) --text the Crisis Text Line (text HOME to 347523) --call 911 and let them know you are having a mental health crisis or go to your nearest Emergency Room for stabilization. --You can also call Mobile Crisis at [phone]. Next appointment: --Schedule in 5 weeks or sooner if needed -- You may call the department appointment line at [phone] to schedule your appointment. -- Please call my nurse Portia at [phone] or send me a message in [employer] with any questions or concerns between appointments. documented in this encounter [facility] 10-21-2023 Note HNO ID: [id number] Author: KINSEY LEVINE APRN.CNP Service: ? Author Type: Nurse Practitioner Type: Progress Notes Filed: 10/28/2023 00:31 Note Text: FOLLOW UP - PSYCHIATRIC PROGRESS NOTE PATIENT: Kristel Chilel DATE: October 21, 2023 Visit Type: Virtual Visit utilizing two-way audio and video for at least a portion of the visit. Consent for virtual visit obtained verbally. Confidentiality limitations with virtual visits reviewed with the patient and guardian, if present, who have accepted the risk verbally prior to proceeding with encounter. I have communicated my name and active licensure. The patient's identity and physical location were verified at the time of this visit. Either the patient or their legal manufacturer's representative has been informed of the risks and benefits of -- and alternatives to -- treatment through a remote evaluation and consents to proceed with the evaluation remotely. All information is from Patient report except when noted. This evaluation is NOT intended for forensic, disability or child custody purposes. Some elements were copied from the previous note which have been updated where appropriate and reflect current decision making from today October 21, 2023. CC: Presenting today for follow up regarding psychiatric medication management. HPI: Treatment Plan from Last Visit on 09/16/2023: 1. Discussed ways of managing thought based and physical anxiety symptoms regarding completing lab work. 2. Okay to utilize Diazepam to manage anxiety prior to lab work. 3. Continue the psychiatric medications at the same dose. 4. Continue to engage in utilizing coping skills. Kristel completed her lab work on 10/13/2023. It showed metabolic side effects related Zyprexa use as well as elevated liver enzymes. Patient was asked to reduce the Zyprexa dose in 1/2 till the appointment today to review lab results. Today Kristel shares that she was very nervous about getting lab work done. Her anxiety was up, the labor law professor was quick and daughter went for support. It wasn't as bad as I thought . She has rolling veins and they had to use a butterfly needle. She got slightly light headed but not as bad as it had happened in the past. She saw her OB and her lab work ruled out menopause. Because she had a hysterectomy, she was informed that she still has a chance of hitting menopause early. She has been okay with cutting the Zyprexa to 7.5 mg. Was concerned about the lab results. Mother in law has been diagnosed with liver cancer. She only has a few days to live. Her mood is low, irritable, crying for no reason, tired. She has not had a single nightmare recently. She has been taking Gabapentin 3 times a day. Unsure if that contributes to more fatigue. Reviewed lab work in detail. She has been trying to be outside in the sun working. Has been driving a little bit more. She has been trying to pace herself so that she can manage things with her pain concerns. Has been taking the minipress to manage her nightmares. Denies any major side effects. Some minor dizziness in the morning. Interval Progress: Same PATIENT DATA: Generalized Anxiety Disorder Scale (ZAIRE-7) 08/16/2023 09/16/2023 10/20/2023 ZAIRE - 7 SCORES Score 6 6 12 (0-4) minimal anxiety, (5-9) mild anxiety, (10-14) moderate anxiety, (15-21) severe anxiety Patient Health Questionnaire (PHQ-9) 08/16/2023 09/16/2023 10/20/2023 PHQ-9 Score 5 6 6 (0-4) minimal depression, (5-9) mild depression, (10-14) moderate depression, (15-19) moderately severe depression, (20-27) severe depression PAST MEDICAL HISTORY Diagnosis Date Abnormal glandular Papanicolaou smear of cervix 2001 Abn. Pap smear (cervix),ASCUS Anxiety Bulging disc L5 Chlamydia 2001 Galactorrhea not associated with childbirth Goiter 03/04/2015 Headache History of migraine Mastodynia Nerve damage right leg hemorrhage 2001 RECURRENT UTI WITH PREGNANCIES Rh negative state in antepartum period 05/26/2012 Tobacco use disorder PAST SURGICAL HISTORY Procedure Laterality Date DILATION AND CURETTAGE DXAND/THER NONOBSTETRIC Dilation AND curettage ESSURE SALPINGECTOMY Bilateral 06/19/15 TONSILLECTOMY AND ADENOIDECTOMY VAGINAL HYSTERECTOMY UTERUS 250 GM/< 06/19/15 [facility] ALLERGIES Allergen Reactions Cats SNEEZING,WATERY EYES Dog Hair Anaphylaxis SNEEZING, WATERY EYES Sulfa (Sulfonamide * Hives Current Outpatient Medications on File Prior to Visit Medication Sig OLANZapine (ZYPREXA) 15 mg tablet Take 0.5 tablets by mouth daily at bedtime. gabapentin (NEURONTIN) 300 mg capsule Take 1 capsule by mouth three times a day for 60 days. dicyclomine (BENTYL) 10 mg capsule TAKE 1 CAPSULE THREE TIMES DAILY BEFORE MEALS albuterol HFA (PROAIR HFA) 90 mcg/actuation inhaler Inhale 1-2 Puffs as instructed every 4 hours as needed. No current facility-administered medications on file prior to visit (more content not included)... [facility] 10-21-2023 History of Presen t illness Narrative Images from the original note were not included. FOLLOW UP - PSYCHIATRIC PROGRESS NOTE PATIENT: Kristel Chilel DATE: October 21, 2023 Visit Type: Virtual Visit utilizing two-way audio and video for at least a portion of the visit. Consent for virtual visit obtained verbally. Confidentiality limitations with virtual visits reviewed with the patient and guardian, if present, who have accepted the risk verbally prior to proceeding with encounter. I have communicated my name and active licensure. The patient's identity and physical location were verified at the time of this visit. Either the patient or their legal manufacturer's representative has been informed of the risks and benefits of -- and alternatives to -- treatment through a remote evaluation and consents to proceed with the evaluation remotely. All information is from Patient report except when noted. This evaluation is NOT intended for forensic, disability or child custody purposes. Some elements were copied from the previous note which have been updated where appropriate and reflect current decision making from today October 21, 2023. CC: Presenting today for follow up regarding psychiatric medication management. HPI: Treatment Plan from Last Visit on 09/16/2023: 1. Discussed ways of managing thought based and physical anxiety symptoms regarding completing lab work. 2. Okay to utilize Diazepam to manage anxiety prior to lab work. 3. Continue the psychiatric medications at the same dose. 4. Continue to engage in utilizing coping skills. Kristel completed her lab work on 10/13/2023. It showed metabolic side effects related Zyprexa use as well as elevated liver enzymes. Patient was asked to reduce the Zyprexa dose in 1/2 till the appointment today to review lab results. Today Kristel shares that she was very nervous about getting lab work done. Her anxiety was up, the labor law professor was quick and daughter went for support. It wasn't as bad as I thought . She has rolling veins and they had to use a butterfly needle. She got slightly light headed but not as bad as it had happened in the past. She saw her OB and her lab work ruled out menopause. Because she had a hysterectomy, she was informed that she still has a chance of hitting menopause early. She has been okay with cutting the Zyprexa to 7.5 mg. Was concerned about the lab results. Mother in law has been diagnosed with liver cancer. She only has a few days to live. Her mood is low, irritable, crying for no reason, tired. She has not had a single nightmare recently. She has been taking Gabapentin 3 times a day. Unsure if that contributes to more fatigue. Reviewed lab work in detail. She has been trying to be outside in the sun working. Has been driving a little bit more. She has been trying to pace herself so that she can manage things with her pain concerns. Has been taking the minipress to manage her nightmares. Denies any major side effects. Some minor dizziness in the morning. Interval Progress: Same PATIENT DATA: Generalized Anxiety Disorder Scale (ZAIRE-7) 08/16/2023 09/16/2023 10/20/2023 ZAIRE - 7 SCORES Score 6 6 12 (0-4) minimal anxiety, (5-9) mild anxiety, (10-14) moderate anxiety, (15-21) severe anxiety Patient Health Questionnaire (PHQ-9) 08/16/2023 09/16/2023 10/20/2023 PHQ-9 Score 5 6 6 (0-4) minimal depression, (5-9) mild depression, (10-14) moderate depression, (15-19) moderately severe depression, (20-27) severe depression PAST MEDICAL HISTORY Diagnosis Date Abnormal glandular Papanicolaou smear of cervix 2001 Abn. Pap smear (cervix),ASCUS Anxiety Bulging disc L5 Chlamydia 2001 Galactorrhea not associated with childbirth Goiter 03/04/2015 Headache History of migraine Mastodynia Nerve damage right leg hemorrhage 2001 RECURRENT UTI WITH PREGNANCIES Rh negative state in antepartum period 05/26/2012 Tobacco use disorder PAST SURGICAL HISTORY Procedure Laterality Date DILATION & CURETTAGE DX&/THER NONOBSTETRIC Dilation & curettage ESSURE SALPINGECTOMY Bilateral 06/19/15 TONSILLECTOMY & ADENOIDECTOMY <AGE 12 VAGINAL HYSTERECTOMY UTERUS 250 GM/< 06/19/15 [facility] ALLERGIES Allergen Reactions Cats SNEEZING,WATERY EYES Dog Hair Anaphylaxis SNEEZING, WATERY EYES Sulfa (Sulfonamide * Hives Current Outpatient Medications on File Prior to Visit Medication Sig OLANZapine (ZYPREXA) 15 mg tablet Take 0.5 tablets by mouth daily at bedtime. gabapentin (NEURONTIN) 300 mg capsule Take 1 capsule by mouth three times a day for 60 days. dicyclomine (BENTYL) 10 mg capsule TAKE 1 CAPSULE THREE TIMES DAILY BEFORE MEALS albuterol HFA (PROAIR HFA) 90 mcg/actuation inhaler Inhale 1-2 Puffs as instructed every 4 hours as needed. No current facility-administered medications on file prior to visit. ROS: See HPI PFSH: See HPI VITAL SIGNS: There were no vitals filed for this visit. Last 3 Encounter BP Readings: Date: BP: 08/23/2017 112/68 06/25/2017 96/58 02/07/2017 104/68 MENTAL STATUS EXAMINATION: Mental Status Exam General/Sensorium: Alert Orientation: AAOx3 Appearance: Casually dressed Eye contact: Appropriate Demeanor: Appropriately interactive Motor activity: Normal Speech: Articulate with appropriate rhythm and volume Mood: Anxious and sad Affect: Congruent with mood Thought process: Linear, logical, and goal-directed Associations: Normal Thought content: Discussing stressors and focused on history, symptoms, and management Suicidal ideation: SI: no Plan: no Intent: no Homicidal ideation: HI: no Plan: no Intent: no Abnormal/psychotic thoughts: Absent Perceptions: She does not appear internally stimulated. Intelligence: Average Attention: - fair Memory: Short-term: Intact Long-term: Intact Language: Intact Fund of knowledge: Fair Insight: Poor Judgment: Fair Gait: Not observed Station: Sitting DATA REVIEWED: Psychiatric scales, Electronic medical record, Labs, and PDMP report PDMP website checked and validated. All prescriptions have been APPROPRIATELY filled. No suspicious activity was identified. 10/21/2023 by Kinsey Levine APRN.RESEARCH CHEMICAL ENGINEER DIAGNOSIS: Generalized Anxiety Disorder Bipolar 2 disorder Metabolic syndrome - related to Zyprexa Elevated liver enzymes Abnormal Hemoglobin GAF: -60-51 Moderate symptoms or moderate difficulty in social, occupational or school functioning. TREATMENT PLAN: Decrease and discontinue Zyprexa over a course of 8 days due to elevation in liver enzymes and metabolic side effects. Start Latuda instead to address patient's mood disorder. Take Gabapentin only twice a day and a higher dose at bedtime due to patient being concerned of fatigue related side effects. Does report efficacy of Gabapentin in managing her anxiety and muscle spasms and would like to continue to the medication at this time. Utilize Diazepam as needed to manage severe anxiety symptoms. Continue Prazosin at the same dose to address trauma related nightmares. Repeat lab work in 4 weeks to check for decrease in liver enzymes and improvement in metabolic side effects. MEDICATION CHANGES: 1) Zyprexa 5 mg - take 1 tablet every night at bedtime for 4 days, then take 1/2 tablet at bedtime for 4 days and then stop. 2) Latuda 20 mg - take 1 tablet once daily with 300 calories of food for 7 days. 3) Latuda 40 mg - After completing 7 days of Latuda 20 mg, take 1 tablet of Latuda 40 mg once daily with 300 calories of food. 4) Continue Prazosin at the same dose at bedtime to address anxiety symptoms. 5) Gabapentin 300 mg - take 1 capsule every morning and then take 2 capsules at bedtime. 6) Utilize Diazepam 5 mg once daily if needed to address severe anxiety symptoms. Risks and benefits of the medication, including any black box warnings, were discussed with the patient. Patient is aware to reach out with any questions, concerns, or worsening of symptoms prior to the next appointment. Patient educated on risks of substance use in combination with medications and advised that any substance use along with medications may alter their effectiveness. Follow Up: 5 weeks I spent a total of 45 minutes on the date of the service which included preparing to see the patient, [id number] patient care, completing clinical documentation, and counseling and educating the patient/family/caregiver, ordering medications/labs. ADD ON PSYCHOTHERAPY CODE : No SIGNATURE: Kinsey Levine APRN.CNP PATIENT NAME: Kristel Chilel DATE: October 21, 2023 TIME: 8:03 AM documented in this encounter [facility] 10-14-2023 Telephone encounter Note Addressed in a separate [employer] message. [facility] 10-14-2023 Miscellaneous Notes Addressed in a separate [employer] message. Patient reviewed lab results on and is anxious with results. Scheduled for follow up on 10/21/2023 with Kinsey. Patient asking for provider to review and advise prior to distance health visit. Sylvester Cuellar RN documented in this encounter [facility] 10-14-2023 Telephone encounter Note Patient reviewed lab results on and is anxious with results. Scheduled for follow up on 10/21/2023 with Kinsey. Patient asking for provider to review and advise prior to distance health visit. Sylvester Cuellar RN [facility] 09-16-2023 Note HNO ID: [id number] Author: KINSEY LEVINE APRN.RESEARCH CHEMICAL ENGINEER Service: ? Author Type: Nurse Practitioner Type: Progress Notes Filed: 09/24/2023 22:24 Note Text: FOLLOW UP - PSYCHIATRIC PROGRESS NOTE Visit Type:Virtual Visit utilizing two-way audio and video for at least a portion of the visit. Consent for virtual visit obtained verbally. Confidentiality limitations with virtual visits reviewed with the patient and guardian, if present, who have accepted the risk verbally prior to proceeding with encounter. I have communicated my name and active licensure. The patient's identity and physical location were verified at the time of this visit. Either the patient or their legal manufacturer's representative has been informed of the risks and benefits of -- and alternatives to -- treatment through a remote evaluation and consents to proceed with the evaluation remotely. Reason for Visit: Outpatient follow-up and safety monitoring of previously prescribed psychiatric medication, psychotherapy or other treatment CC: Follow up for psychiatric medication management HPI: Treatment plan from last visit on 08/19/2023: 1. Continue psychiatric medications at the same dose. 2. Discussed the importance of completing monitoring lab work. Patient plans on completing it after her OB appointment incase they want to add additional lab work. Has anxiety related to completing lab work. Aware that she can utilize Diazepam for this situation. 3. Encouraged patient to schedule an appointment with her PCP. 4. Utilize Diazepam only as needed to manage severe episodes of anxiety. 5. Encouraged patient to continue challenging her anxiety related to driving. Today Kristel shares that today is actually not a bad day . Her back is slight sore today. Her OB added blood work to check her hormone levels. She is going to do the lab work on Tuesday morning. Daughter and Mother are going to accompany her. Still has anxiety about it. She will be utilizing Diazepam to manage her anxiety related to it. Discussed the importance of completing this lab work for monitoring purposes. OB has provided strategies for her to manage the hot flashes. OB will be able to diagnose after reviewing lab work. Shares that she may need hormone replacement. She went inside a store yesterday for the first time in a long time. She did feel anxious but was proud of herself that she managed to do it. Has been exposing self to driving. Has been spending time gardening. Making more effort than she was in the past. Minipress is helping prevent nightmares. Sleep tends to fluctuate. Able to go back to sleep if she wakes up. Denies any side effects from the minipress. Consistent in taking Zyprexa and Gabapentin. Gabapentin helps with anxiety and back spasms. Risks and benefits of the medication, including any black box warnings, were discussed with the patient. Interval Progress: Same PATIENT DATA: Generalized Anxiety Disorder Scale (ZAIRE-7) 07/22/2023 08/16/2023 09/16/2023 ZAIRE - 7 SCORES Score 11 6 6 (0-4) minimal anxiety, (5-9) mild anxiety, (10-14) moderate anxiety, (15-21) severe anxiety Patient Health Questionnaire (PHQ-9) 07/22/2023 08/16/2023 09/16/2023 PHQ-9 Score 11 5 6 (0-4) minimal depression, (5-9) mild depression, (10-14) moderate depression, (15-19) moderately severe depression, (20-27) severe depression PROMIS Global Health 11/09/2022 02/28/2023 07/22/2023 PROMIS Global Health - (T-Scores - the mean of general population = 50. Five points is a clinically meaningful difference.) Physical T-Score 34.9 39.8 42.3 Mental T-Score 33.8 31.3 31.3 PAST MEDICAL HISTORY Diagnosis Date Abnormal glandular Papanicolaou smear of cervix 2001 Abn. Pap smear (cervix),ASCUS Anxiety Bulging disc L5 Chlamydia 2001 Galactorrhea not associated with childbirth Goiter 03/04/2015 Headache History of migraine Mastodynia Nerve damage right leg hemorrhage 2001 RECURRENT UTI WITH PREGNANCIES Rh negative state in antepartum period 05/26/2012 Tobacco use disorder PAST SURGICAL HISTORY Procedure Laterality Date DILATION AND CURETTAGE DXAND/THER NONOBSTETRIC Dilation AND curettage ESSURE SALPINGECTOMY Bilateral 06/19/15 TONSILLECTOMY AND ADENOIDECTOMY VAGINAL HYSTERECTOMY UTERUS 250 GM/< 06/19/15 [facility] Current Outpatient Medications Medication Sig Dispense Refill prazosin (MINIPRESS) 1 mg cap Take 1 capsule by mouth daily at bedtime. 30 capsule 0 OLANZapine (ZYPREXA) 15 mg tablet Take 1 tablet by mouth daily at bedtime. 30 tablet 0 gabapentin (NEURONTIN) 300 mg capsule Take 1 capsule by mouth three times a day for 60 days. 90 capsule 0 dicyclomine (BENTYL) 10 mg capsule TAKE 1 CAPSULE THREE TIMES DAILY BEFORE MEALS albuterol HFA (PROAIR HFA) 90 mcg/actuation inhaler Inhale 1-2 Puffs as instructed every 4 hours as needed. 1 Inhaler 0 No current facility-administered medications for this visit. (more content not included)... [facility] 09-16-2023 History of Presen t illness Narrative FOLLOW UP - PSYCHIATRIC PROGRESS NOTE Visit Type:Virtual Visit utilizing two-way audio and video for at least a portion of the visit. Consent for virtual visit obtained verbally. Confidentiality limitations with virtual visits reviewed with the patient and guardian, if present, who have accepted the risk verbally prior to proceeding with encounter. I have communicated my name and active licensure. The patient's identity and physical location were verified at the time of this visit. Either the patient or their legal manufacturer's representative has been informed of the risks and benefits of -- and alternatives to -- treatment through a remote evaluation and consents to proceed with the evaluation remotely. Reason for Visit: Outpatient follow-up and safety monitoring of previously prescribed psychiatric medication, psychotherapy or other treatment CC: Follow up for psychiatric medication management HPI: Treatment plan from last visit on 08/19/2023: 1. Continue psychiatric medications at the same dose. 2. Discussed the importance of completing monitoring lab work. Patient plans on completing it after her OB appointment incase they want to add additional lab work. Has anxiety related to completing lab work. Aware that she can utilize Diazepam for this situation. 3. Encouraged patient to schedule an appointment with her PCP. 4. Utilize Diazepam only as needed to manage severe episodes of anxiety. 5. Encouraged patient to continue challenging her anxiety related to driving. Today Kristel shares that today is actually not a bad day . Her back is slight sore today. Her OB added blood work to check her hormone levels. She is going to do the lab work on Tuesday morning. Daughter and Mother are going to accompany her. Still has anxiety about it. She will be utilizing Diazepam to manage her anxiety related to it. Discussed the importance of completing this lab work for monitoring purposes. OB has provided strategies for her to manage the hot flashes. OB will be able to diagnose after reviewing lab work. Shares that she may need hormone replacement. She went inside a store yesterday for the first time in a long time. She did feel anxious but was proud of herself that she managed to do it. Has been exposing self to driving. Has been spending time gardening. Making more effort than she was in the past. Minipress is helping prevent nightmares. Sleep tends to fluctuate. Able to go back to sleep if she wakes up. Denies any side effects from the minipress. Consistent in taking Zyprexa and Gabapentin. Gabapentin helps with anxiety and back spasms. Risks and benefits of the medication, including any black box warnings, were discussed with the patient. Interval Progress: Same PATIENT DATA: Generalized Anxiety Disorder Scale (ZAIRE-7) 07/22/2023 08/16/2023 09/16/2023 ZAIRE - 7 SCORES Score 11 6 6 (0-4) minimal anxiety, (5-9) mild anxiety, (10-14) moderate anxiety, (15-21) severe anxiety Patient Health Questionnaire (PHQ-9) 07/22/2023 08/16/2023 09/16/2023 PHQ-9 Score 11 5 6 (0-4) minimal depression, (5-9) mild depression, (10-14) moderate depression, (15-19) moderately severe depression, (20-27) severe depression PROMIS Global Health 11/09/2022 02/28/202307/22/2023 PROMIS Global Health - (T-Scores - the mean of general population = 50. Five points is a clinically meaningful difference.) Physical T-Score 34.9 39.8 42.3 Mental T-Score 33.8 31.3 31.3 PAST MEDICAL HISTORY Diagnosis Date Abnormal glandular Papanicolaou smear of cervix 2001 Abn. Pap smear (cervix),ASCUS Anxiety Bulging disc L5 Chlamydia 2001 Galactorrhea not associated with childbirth Goiter 03/04/2015 Headache History of migraine Mastodynia Nerve damage right leg hemorrhage 2002 RECURRENT UTI WITH PREGNANCIES Rh negative state in antepartum period 05/26/2012 Tobacco use disorder PAST SURGICAL HISTORY Procedure Laterality Date DILATION & CURETTAGE DX&/THER NONOBSTETRIC Dilation & curettage ESSURE SALPINGECTOMY Bilateral 06/19/15 TONSILLECTOMY & ADENOIDECTOMY <AGE 12 VAGINAL HYSTERECTOMY UTERUS 250 GM/< 06/19/15 [facility] Current Outpatient Medications Medication Sig Dispense Refill prazosin (MINIPRESS) 1 mg cap Take 1 capsule by mouth daily at bedtime. 30 capsule 0 OLANZapine (ZYPREXA) 15 mg tablet Take 1 tablet by mouth daily at bedtime. 30 tablet 0 gabapentin (NEURONTIN) 300 mg capsule Take 1 capsule by mouth three times a day for 60 days. 90 capsule 0 dicyclomine (BENTYL) 10 mg capsule TAKE 1 CAPSULE THREE TIMES DAILY BEFORE MEALS albuterol HFA (PROAIR HFA) 90 mcg/actuation inhaler Inhale 1-2 Puffs as instructed every 4 hours as needed. 1 Inhaler 0 No current facility-administered medications for this visit. ROS: See HPI PFSH: See HPI VITAL SIGNS: There were no vitals filed for this visit. MENTAL STATUS EXAM: CONSTITUTIONAL: Casually dressed ORIENTATION: Person, Place, Time and Situation MEMORY: Recent intact, Remote intact, Immediate intact CONCENTRATION: Scattered MOOD: anxious AFFECT: Full and appropriate to topic SPEECH : Clear & distinct LANGUAGE : Normal ASSOCIATIONS: Intact THOUGHT PROCESS : Logical, Coherent, and Rational PROGRESSION : There was no evidence of disturbance in thought perception or progression. FUND OF KNOWLEDGE : Appropriate and Adequate SUICIDE: None HOMICIDE: None DATA REVIEWED: Psychiatric scales, Labs, Electronic medical record, and Mold Worker notes DIAGNOSIS: PRIMARY: Generalized Anxiety Disorder Secondary : Bipolar 2 disorder Other : Anxiety related to completing lab work. GAF: -60-51 Moderate symptoms or moderate difficulty in social, occupational or school functioning. TREATMENT PLAN: 1. Discussed ways of managing thought based and physical anxiety symptoms regarding completing lab work. 2. Okay to utilize Diazepam to manage anxiety prior to lab work. 3. Continue the psychiatric medications at the same dose. 4. Continue to engage in utilizing coping skills. MEDICATION CHANGES: Current medication regimen unchanged. Patient denies any involuntary movement related side effects. PDMP report was reviewed and found to be appropriate without any signs of misuse or diversion. Follow Up: Schedule a follow up after completing lab work. I spent a total of 38 minutes on the date of the service which included preparing to see the patient, [id number] patient care, completing clinical documentation, obtaining and/or reviewing separately obtained history, counseling and educating the patient/family/caregiver, ordering medications, tests, or procedures, communicating with other HCPs (not separately reported), independently interpreting results (not separately reported), and communicating results to the patient/family/caregiver. ADD ON PSYCHOTHERAPY CODE : No SIGNATURE: Kinsey Levine APRN.CNP PATIENT NAME: Kristel Chilel DATE: September 16, 2023 TIME: 10:08 AM documented in this encounter [facility] 09-05-2023 Instructions Meka Chauhan MD - 09/05/2023 11:19 AM EDT Non-Hormonal Ways to [place] with Hot Flashes and Menopause Hormone therapy is the most effective therapy for hot flashes. It is also the only FDA approved method to treat hot flashes. However, other non-hormonal options are available for women who are suffering from symptoms, but are not yet ready to consider hormone therapy. Some women are not appropriate candidates for hormone therapy, such as those have been recently treated for breast cancer, ovarian cancer, or endometrial/uterine cancer. It is important to remember that when used appropriately, hormone therapy can be a safe and effective option for many women. Here we will review non-hormonal treatment options for women. Knowing the triggers of hot flashes Hot flashes may be precipitated by hot weather, smoking, caffeine, spicy foods, alcohol, tight clothing, heat and stress. Identify and avoid your hot flash triggers. Some women notice hot flashes when they eat a lot of sugar. Exercising in warm temperatures might make hot flashes worse. Diet Avoiding caffeine, spicy foods, and alcohol can help lessen both the number and severity of hot flashes. Many women try to incorporate more plant estrogens into their diet. Plant estrogens, such as isoflavones, are thought to have weak estrogen-like effects that may reduce hot flashes. They may work in the body like a weak form of estrogen. Examples of plant estrogens include: soybeans, chickpeas, lentils, flaxseed, grains, beans, fruits, red clover and vegetables. In general, soybeans, chickpeas, and lentils are considered to have the most powerful plant estrogens, though their effect is much less than that of human estrogen. Try to choose natural foods rather than supplements. Also remember that only crushed or ground forms of flaxseed are likely to help (as compared to the whole seed or seed oil forms). What foods have high amounts of isoflavones Food Isoflavone Amount (Mg) In Food (100g) Soymilk 9.65 Soybeans, green, raw 151.17 Soy flour (textured) 148.61 148.61 Soybeans, dry roasted 128.35 Instant beverage soy, powder, not reconstituted 109.51 Miso soup mix, dry 60.39 Soybean chips 54.16 Tempeh, cooked 53.00 Soybean curd cheese 28.20 Tofu, silken 27.91 Tofu, yogurt 16.30 Source: [facility] -- [facility] Database on the Isoflavone Content of Foods, 1998 Lifestyle changes Reducing the temperature in a room, dressing in layers, and the use of a fan while asleep can be effective ways to help deal with troublesome hot flashes. Women who are overweight tend to have more bothersome hot flashes, therefore weight loss can be helpful. Quitting smoking has a dual importance during menopause. First, smoking contributes to the increased cardiovascular risks of being postmenopausal. Second, smokers tend to experience more hot flashes. Women who lead a sedentary life seem to suffer more from hot flashes; however, it is best to exercise in a cooler environment. Try deep, slow abdominal breathing (6 to 8 breaths per minute). Practice deep breathing for 15 minutes in the morning, 15 minutes in the evening and at the onset of hot flashes. For some women, wearing socks to bed is helpful as it can help to cool core body temperature. Relieving insomnia Keep the bedroom cool to prevent night sweats. Avoid using sleeping pills. Exercise daily. Avoid caffeine and alcohol at night. Take a warm bath or shower at bedtime. Try milk products at bedtime or during the night (but avoid products that contain caffeine). Coping with mood swings, fears, and depression Find a self-calming skill to practice, such as yoga, meditation or slow, deep breathing. Avoid tranquilizers, if possible. Engage in a creative outlet that fosters a sense of achievement. Stay connected with your family and community; nurture your friendships. Relieving painful intercourse Try using a vaginal water-based moisturizing lotion or lubricant during intercourse. These are sold without a prescription near the condoms in most stores. Common names include-Astroglide and [place] liquid . Avoid Vaseline , as it may lead to yeast infections. Prescription and nonprescription remedies A number of non-hormonal remedies are available for the treatment of hot flashes. Some of these remedies (e.g., black cohosh and soy products) are available [id number]-ylt-[id number] but are not FDA-approved. Some prescription medications are used off label to help reduce hot flashes. Using a product off label means that it is not FDA approved for the treatment of hot flashes, but is often used because it can be safe and effective for hot flash treatment.(considered the more effective non-hormonal treatments): Drug Side Effect Effectiveness venlafaxine (Effexor ) Nausea, change in bowel habits, headache (temporary side effects for most). Elevated blood pressure (at high doses) Effectiveness has been proven in several well-designed studies. One of the safer medications for women taking tamoxifen (no drug interaction). desvenlafaxine (Pristiq ) Similar to venlafaxine. Nausea, change in bowel habits, headache (temporary side effects for most). Elevated blood pressure (at high doses) Improvement in hot flashes compared to placebo has been shown. Newer med compared to venlafaxine, so a smaller number of studies are available. fluoxetine (Prozac ) Nausea, change in bowel habits, decreased libido, insomnia. Should be avoided in women taking tamoxifen. Improvement in hot flashes has been shown in well-designed studies. paroxetine (Paxil ) Nausea, change in bowel habits, decreased libido, dry mouth, weight gain (not common) Should be avoided in women taking tamoxifen. eTends to be more effective for sleep in women who are also suffering with insomnia. Improvement in hot flashes has been shown in well-designed studies. scitalopram (Lexapro ) Nausea, change in bowel habits, decreased libido, abnormal EKG (not common) Improvement in hot flashes has been shown in well-designed studies. Gabapentin (Neurontin ) Fatigue, dizziness, nausea, disorientation, swelling, weight gain Tends to be more effective for sleep in women who are also suffering with insomnia. Clonidine (Catapres ) Dry mouth, drowsiness, fatigue, constipation, lowers blood pressure Relieved hot flashes in some, but not all studies.Less commonly used than some of the other options. Non-prescription, herbal, mihc-qne-zrvmund therapies: Drug Side Effects Effectiveness Evening Partridge Oil Nausea, diarrhea, headache. Only one well-designed study showing not effective. Black cohosh Mild stomach upset. Safe up to 6 months only due to possible estrogen-like effects. Liver toxicity has been reported. Some small, short-term studies have suggested benefits, however most studies do not suggest that it works. Soy (plant estrogen) Also referred to as phytoestrogens. Appears safe if consumed in foods. In supplement form, consistency of dose and quality can be a concern. Supplements are not recommended for breast cancer survivors For the most part, results from clinical studies show that phytoestrogens are not effective for treatment of hot flashes. Acupuncture Uncomfortable for some, often costly. Generally well-tolerated, but multiple visits required Individual trials have reported some benefits, but larger studies have not shown any improvement over placebo procedures. However some women do report benefits with this, so it is possible that more well-designed studies are needed to answer this question. Vitamin E 13% increase risk of heart failure. Might increase rate in those who use high doses for a long time. A higher risk of prostate cancer has also been shown, but applies only to men. One study showing effective. However the improvement seen in this was only one less hot flash per day compared to placebo. Are the mvxd-hqy-mnrzuar herbal products (botanicals) safe? While safe when taken in moderate amounts through diet, the consumption of extraordinary amounts of soy and isoflavone supplements may be harmful to women with a history of estrogen-dependent cancer, like breast cancer, and possibly to other women as well. More research is needed to determine the safety and effectiveness of botanical treatments. For example, Ginseng, [place], Wild yam, Progesterone cream, reflexology, and magnetic devices are sold to help menopausal symptoms, but there are no good studies looking at their safety or effectiveness. To make an informed decision about the use of these treatments, be sure to discuss them with your doctor. Because little is known about many botanicals, the best way to evaluate their safety and effectiveness is to become an educated consumer. Here are some tips to consider when shopping for alternative therapies. Ask yourself the following questions: What is the treatment? What does it involve? How does it work? Why does it work? Are there any risks? What are the side effects? Is it effective? (Ask for evidence or proof) How much does it cost? Once you answer these questions, discuss the therapy with your doctor. Make sure your doctor knows what therapy you are considering in order to discuss possible interactions or side effects with your current treatment. What are warning signs that a product may not be legitimate? When trying to determine whether or not a product is what it says it is, one of the elements you may want to look at is how the product is promoted. Be cautious of products promoted through: [employer] Direct mailings [employer] Ads disguised as valid news articles Ads in the back of magazines Additional red flags to look for include: Big claims: If products claim to be a cure for your condition, or gives outrageous claims, be cautious. Source: Be wary if the product is only offered through one grain i farmworker or purchased only through a health care provider s office. Ingredients: Make sure all of the active ingredients are listed, and don t trust secret formulas. Testimonials: Remember that only people who are satisfied with a product give testimonials and that they may be getting paid for their endorsement References: National Center for Complementary and Alternative Medicine. Vitamin E. nccam.nih.gov Assessed September 18, 2012 Nayeli Donohue et al. meta-analysis: High Dosage Vitamin E. Supplementation Might Increase All Cause Mortality. Annals of Internal Medicine June 23, 2004. annals.org National Center for Complementary and Alternative Medicine. Menopausal Symptoms and CAM. [facility].nih.gov Accessed September 18, 2012 [place] [employer], Hormone Therapy for women in 2012. www.menopause.org Assessed September 18, 2012 [place] [employer] Gynec[employer]. Publications. The Menopause Years. www.acog.org Accessed 08/17/2010 Centers for Disease Control and Prevention. Women s Reproductive Health: Menopause. www.cdc.gov Accessed 08/17/2010 National [place] on Aging. Age Page: Menopause. www.jaimie.nih.gov Accessed 08/17/2010 COPING WITH THE SYMPTOMS OF MENOPAUSE Not all women experience menopause in the same way. For some, menopause can bring on an array of uncomfortable symptoms. Others may experience few discomforts and are happy to no longer have periods. Relieving hot flashes Identify and avoid your hot flash triggers. Common triggers include stress, caffeine, alcohol, spicy foods, tight clothing, heat and cigarette smoke. Keep the bedroom cool. Use fans during the day. Wear light layers of clothing. Try deep, slow abdominal breathing (6 to 8 breaths per minute). Practice deep breathing for 15 minutes in the morning, 15 minutes in the evening and at the onset of hot flashes. Exercise daily. Walking, swimming, dancing and bicycling are good choices. Try taking vitamin E supplements (400 international units [IUs] twice a day) and ibuprofen (Motrin, Advil, Nuprin) at bedtime. Note: Do not take ibuprofen and aspirin together. Add soy protein (40 to 60 mg) to your diet daily. Relieving insomnia Keep the bedroom cool to prevent night sweats. Avoid using sleeping pills. Exercise daily. Avoid caffeine and alcohol at night. Take a warm bath or shower at bedtime. Eat cereal and milk products at bedtime or during the night. (Avoid products that contain caffeine.) Coping with mood swings, fears, and depression Find a self-calming skill to practice, such as yoga, meditation or slow, deep breathing. Avoid tranquilizers, if possible. Engage in a creative outlet that fosters a sense of achievement. Stay connected with your family and community; nurture your friendships. Relieving painful intercourse Try using a vaginal water-based moisturizing lotion or lubricant during intercourse. Preventing osteoporosis Calcium can slow bone loss and may decrease fractures. Consume 1,500 milligrams of calcium a day. Good sources of calcium are calcium supplements such as Tums; fruit juices and breads; low-fat dairy products; green leafy vegetables such as broccoli, kale and spinach greens; almonds; and soy milk. Vitamin D aids in the absorption of calcium and stimulates bone formation. Consume 400 to 800 IUs of vitamin D a day. Eat foods low in sodium, low in animal protein and low in caffeine. Bone mass is built before menopause as a result of exercise, diet, and genetics. Exercises that increase bone mass make the muscles work against gravity. Walking and muscle-building exercises may reduce bone loss and fractures and improve balance. Preventing heart disease Eat a variety of vegetables, fruits, and whole grains, including soy food. Limit salt, cholesterol, and fat, especially animal fat. Get at least 30 minutes of moderate exercise over the course of each day. Many activities increase the heart rate, including gardening, walking, dancing, and aerobic exercises. The activity period does not need to be continuous. Don't smoke. Maintain a healthy weight. Follow your health care provider's instructions for controlling high blood pressure, diabetes, and cholesterol. Take a vitamin supplement. Choose one that contains antioxidants, including vitamins E and C. Take one baby aspirin daily, if approved by your physician. Note: Do not take ibuprofen and aspirin together. Copyright 4752-0561 [employer] [facility]. All rights reserved This information is provided by the [facility] and is not intended to replace the medical advice of your doctor or health care provider. Please consult your health care provider for advice about a specific medical condition. For additional written health information, please contact the Health Information Center at the [facility] or toll-free extension [phone]. This document was last reviewed on: 2002 index#[id number] documented in this encounter [facility] 09-05-2023 Note HNO ID: [id number] Author: MEKA CHAUHAN MD Service: ? Author Type: Physician Type: Progress Notes Filed: 09/05/2023 11:27 Note Text: VIRTUAL VISIT PROGRESS NOTE This is a virtual visit using [employer] Zoom Video Visit. It required patient-provider interaction for the medical decision making as documented below. I have communicated my name and active licensure. The patient's identity and physical location were verified at the time of this visit. Either the patient or their legal manufacturer's representative has been informed of the risks and benefits of -- and alternatives to -- treatment through a remote evaluation and consents to proceed with the evaluation remotely. Kristel Chilel is a 38 year old female seen for hot flashes. She reports last time she saw psychiatry the student that was present notified the patient that she may have symptoms of alexandrea menopause. The patient has been having hot flashes and night sweats for 2-3 months. She does not noticed vasomotor symptoms daily. She feels internally hot, and wakes up covered in sweat some nights. She notices mood swings. She has joint aches and pains. She reports her mother went through menopause in her 40's. H/o hysterectomy for pelvic pain. She reports new acne over face and back. She reports this is new over the last 2-3 months. Applying nothing new on her skin. No other skin changes. Years ago she had facial but never to this extent. Hair is thinning as well. She reports difficulty with blood work as she has anxiety with driving and difficulty walking. HISTORY REVIEWED (electronic chart updated): PAST MEDICAL HISTORY Diagnosis Date Abnormal glandular Papanicolaou smear of cervix 2001 Abn. Pap smear (cervix),ASCUS Anxiety Bulging disc L5 Chlamydia 2001 Galactorrhea not associated with childbirth Goiter 03/04/2015 Headache History of migraine Mastodynia Nerve damage right leg hemorrhage 2002 RECURRENT UTI WITH PREGNANCIES Rh negative state in antepartum period 05/26/2012 Tobacco use disorder PAST SURGICAL HISTORY Procedure Laterality Date DILATION AND CURETTAGE DXAND/THER NONOBSTETRIC Dilation AND curettage ESSURE SALPINGECTOMY Bilateral 06/19/15 TONSILLECTOMY AND ADENOIDECTOMY VAGINAL HYSTERECTOMY UTERUS 250 GM/< 06/19/15 [facility] FAMILY HISTORY Problem Relation Age of Onset Heart Mother Heart Sister has had repair of defect Breast Cancer Maternal Aunt Asthma Mother Hypertension Mother Aneurysm Mother 66 brain Social History Tobacco Use Smoking status: Every Day Packs/day: 1.00 Years: 16.00 Additional pack years: 0.00 Total pack years: 16.00 Types: Cigarettes Smokeless tobacco: Never Substance Use Topics Alcohol use: Yes Comment: occasionally,NOT WHILE Drug use: No Current Outpatient Medications Medication Sig prazosin (MINIPRESS) 1 mg cap Take 1 capsule by mouth daily at bedtime. OLANZapine (ZYPREXA) 15 mg tablet Take 1 tablet by mouth daily at bedtime. gabapentin (NEURONTIN) 300 mg capsule Take 1 capsule by mouth three times a day for 60 days. dicyclomine (BENTYL) 10 mg capsule TAKE 1 CAPSULE THREE TIMES DAILY BEFORE MEALS albuterol HFA (PROAIR HFA) 90 mcg/actuation inhaler Inhale 1-2 Puffs as instructed every 4 hours as needed. No current facility-administered medications for this visit. ALLERGIES Allergen Reactions Cats SNEEZING,WATERY EYES Dog Hair Anaphylaxis SNEEZING, WATERY EYES Sulfa (Sulfonamide * Hives REVIEW OF SYSTEMS: As noted in HPI PHYSICAL EXAMINATION: VIDEO EXAM: (if completed, performed via video enabled technology) GENERAL: alert and appropriate, in no distress, well-hydrated, well nourished, and happy, smiling, interactive ASSESSMENT: (R23.2) Hot flashes (primary encounter diagnosis) (R45.4) Irritability (L70.8) Other acne (L65.9) Hair thinning PLAN: Discussed possible etiologies of symptoms Lab work ordered and she will call to schedule a follow up appointment once she is able to have lab work completed. Ok for virtual visit Reviewed possible alexandrea menopause and expectations Patient Instructions Non-Hormonal Ways to [place] with Hot Flashes and Menopause Hormone therapy is the most effective therapy for hot flashes. It is also the only FDA approved method to treat hot flashes. However, other non-hormonal options are available for women who are suffering from symptoms, but are not yet ready to consider hormone therapy. Some women are not appropriate candidates for hormone therapy, such as those have been recently treated for breast cancer, ovarian cancer, or endometrial/uterine cancer. It is important to remember that when used appropriately, hormone therapy can be a safe and effective option for many women. Here we will review non-hormonal treatment options for women. Knowing the triggers of hot flashes Hot flashes may be precipitated by hot weather, smoking, caffeine, spicy [place] (more content not included)... [facility] 09-05-2023 History of Presen t illness Narrative VIRTUAL VISIT PROGRESS NOTE This is a virtual visit using [employer] Video Visit. It required patient-provider interaction for the medical decision making as documented below. I have communicated my name and active licensure. The patient's identity and physical location were verified at the time of this visit. Either the patient or their legal manufacturer's representative has been informed of the risks and benefits of -- and alternatives to -- treatment through a remote evaluation and consents to proceed with the evaluation remotely. Kristel Chilel is a 38 year old female seen for hot flashes. She reports last time she saw psychiatry the student that was present notified the patient that she may have symptoms of alexandrea menopause. The patient has been having hot flashes and night sweats for 2-3 months. She does not noticed vasomotor symptoms daily. She feels internally hot, and wakes up covered in sweat some nights. She notices mood swings. She has joint aches and pains. She reports her mother went through menopause in her 40's. H/o hysterectomy for pelvic pain. She reports new acne over face and back. She reports this is new over the last 2-3 months. Applying nothing new on her skin. No other skin changes. Years ago she had facial but never to this extent. Hair is thinning as well. She reports difficulty with blood work as she has anxiety with driving and difficulty walking. HISTORY REVIEWED (electronic chart updated): PAST MEDICAL HISTORY Diagnosis Date Abnormal glandular Papanicolaou smear of cervix 2001 Abn. Pap smear (cervix),ASCUS Anxiety Bulging disc L5 Chlamydia 2001 Galactorrhea not associated with childbirth Goiter 03/04/2015 Headache History of migraine Mastodynia Nerve damage right leg hemorrhage 2002 RECURRENT UTI WITH PREGNANCIES Rh negative state in antepartum period 05/26/2012 Tobacco use disorder PAST SURGICAL HISTORY Procedure Laterality Date DILATION & CURETTAGE DX&/THER NONOBSTETRIC Dilation & curettage ESSURE SALPINGECTOMY Bilateral 06/19/15 TONSILLECTOMY & ADENOIDECTOMY <AGE 12 VAGINAL HYSTERECTOMY UTERUS 250 GM/< 06/19/15 [facility] FAMILY HISTORY Problem Relation Age of Onset Heart Mother Heart Sister has had repair of defect Breast Cancer Maternal Aunt Asthma Mother Hypertension Mother Aneurysm Mother 66 brain Social History Tobacco Use Smoking status: Every Day Packs/day: 1.00 Years: 16.00 Additional pack years: 0.00 Total pack years: 16.00 Types: Cigarettes Smokeless tobacco: Never Substance Use Topics Alcohol use: Yes Comment: occasionally,NOT WHILE Drug use: No Current Outpatient Medications Medication Sig prazosin (MINIPRESS) 1 mg cap Take 1 capsule by mouth daily at bedtime. OLANZapine (ZYPREXA) 15 mg tablet Take 1 tablet by mouth daily at bedtime. gabapentin (NEURONTIN) 300 mg capsule Take 1 capsule by mouth three times a day for 60 days. dicyclomine (BENTYL) 10 mg capsule TAKE 1 CAPSULE THREE TIMES DAILY BEFORE MEALS albuterol HFA (PROAIR HFA) 90 mcg/actuation inhaler Inhale 1-2 Puffs as instructed every 4 hours as needed. No current facility-administered medications for this visit. ALLERGIES Allergen Reactions Cats SNEEZING,WATERY EYES Dog Hair Anaphylaxis SNEEZING, WATERY EYES Sulfa (Sulfonamide * Hives REVIEW OF SYSTEMS: As noted in HPI PHYSICAL EXAMINATION: VIDEO EXAM: (if completed, performed via video enabled technology) GENERAL: alert and appropriate, in no distress, well-hydrated, well nourished, and happy, smiling, interactive ASSESSMENT: (R23.2) Hot flashes (primary encounter diagnosis) (R45.4) Irritability (L70.8) Other acne (L65.9) Hair thinning PLAN: Discussed possible etiologies of symptoms Lab work ordered and she will call to schedule a follow up appointment once she is able to have lab work completed. Ok for virtual visit Reviewed possible alexandrea menopause and expectations Patient Instructions Non-Hormonal Ways to [place] with Hot Flashes and Menopause Hormone therapy is the most effective therapy for hot flashes. It is also the only FDA approved method to treat hot flashes. However, other non-hormonal options are available for women who are suffering from symptoms, but are not yet ready to consider hormone therapy. Some women are not appropriate candidates for hormone therapy, such as those have been recently treated for breast cancer, ovarian cancer, or endometrial/uterine cancer. It is important to remember that when used appropriately, hormone therapy can be a safe and effective option for many women. Here we will review non-hormonal treatment options for women. Knowing the triggers of hot flashes Hot flashes may be precipitated by hot weather, smoking, caffeine, spicy foods, alcohol, tight clothing, heat and stress. Identify and avoid your hot flash triggers. Some women notice hot flashes when they eat a lot of sugar. Exercising in warm temperatures might make hot flashes worse. Diet Avoiding caffeine, spicy foods, and alcohol can help lessen both the number and severity of hot flashes. Many women try to incorporate more plant estrogens into their diet. Plant estrogens, such as isoflavones, are thought to have weak estrogen-like effects that may reduce hot flashes. They may work in the body like a weak form of estrogen. Examples of plant estrogens include: soybeans, chickpeas, lentils, flaxseed, grains, beans, fruits, red clover and vegetables. In general, soybeans, chickpeas, and lentils are considered to have the most powerful plant estrogens, though their effect is much less than that of human estrogen. Try to choose natural foods rather than supplements. Also remember that only crushed or ground forms of flaxseed are likely to help (as compared to the whole seed or seed oil forms). What foods have high amounts of isoflavones Food Isoflavone Amount (Mg) In Food (100g) Soymilk 9.65 Soybeans, green, raw 151.17 Soy flour (textured) 148.61 148.61 Soybeans, dry roasted 128.35 Instant beverage soy, powder, not reconstituted 109.51 Miso soup mix, dry 60.39 Soybean chips 54.16 Tempeh, cooked 53.00 Soybean curd cheese 28.20 Tofu, silken 27.91 Tofu, yogurt 16.30 Source: [facility] -- [facility] Database on the Isoflavone Content of Foods, 1998 Lifestyle changes Reducing the temperature in a room, dressing in layers, and the use of a fan while asleep can be effective ways to help deal with troublesome hot flashes. Women who are overweight tend to have more bothersome hot flashes, therefore weight loss can be helpful. Quitting smoking has a dual importance during menopause. First, smoking contributes to the increased cardiovascular risks of being postmenopausal. Second, smokers tend to experience more hot flashes. Women who lead a sedentary life seem to suffer more from hot flashes; however, it is best to exercise in a cooler environment. Try deep, slow abdominal breathing (6 to 8 breaths per minute). Practice deep breathing for 15 minutes in the morning, 15 minutes in the evening and at the onset of hot flashes. For some women, wearing socks to bed is helpful as it can help to cool core body temperature. Relieving insomnia Keep the bedroom cool to prevent night sweats. Avoid using sleeping pills. Exercise daily. Avoid caffeine and alcohol at night. Take a warm bath or shower at bedtime. Try milk products at bedtime or during the night (but avoid products that contain caffeine). Coping with mood swings, fears, and depression Find a self-calming skill to practice, such as yoga, meditation or slow, deep breathing. Avoid tranquilizers, if possible. Engage in a creative outlet that fosters a sense of achievement. Stay connected with your family and community; nurture your friendships. Relieving painful intercourse Try using a vaginal water-based moisturizing lotion or lubricant during intercourse. These are sold without a prescription near the condoms in most stores. Common names include-Astroglide and [place] liquid . Avoid Vaseline , as it may lead to yeast infections. Prescription and nonprescription remedies A number of non-hormonal remedies are available for the treatment of hot flashes. Some of these remedies (e.g., black cohosh and soy products) are available [id number]-gce-xodjjls but are not FDA-approved. Some prescription medications are used off label to help reduce hot flashes. Using a product off label means that it is not FDA approved for the treatment of hot flashes, but is often used because it can be safe and effective for hot flash treatment.(considered the more effective non-hormonal treatments): Drug Side Effect Effectiveness venlafaxine (Effexor ) Nausea, change in bowel habits, headache (temporary side effects for most). Elevated blood pressure (at high doses) Effectiveness has been proven in several well-designed studies. One of the safer medications for women taking tamoxifen (no drug interaction). desvenlafaxine (Pristiq ) Similar to venlafaxine. Nausea, change in bowel habits, headache (temporary side effects for most). Elevated blood pressure (at high doses) Improvement in hot flashes compared to placebo has been shown. Newer med compared to venlafaxine, so a smaller number of studies are available. fluoxetine (Prozac ) Nausea, change in bowel habits, decreased libido, insomnia. Should be avoided in women taking tamoxifen. Improvement in hot flashes has been shown in well-designed studies. paroxetine (Paxil ) Nausea, change in bowel habits, decreased libido, dry mouth, weight gain (not common) Should be avoided in women taking tamoxifen. eTends to be more effective for sleep in women who are also suffering with insomnia. Improvement in hot flashes has been shown in well-designed studies. scitalopram (Lexapro ) Nausea, change in bowel habits, decreased libido, abnormal EKG (not common) Improvement in hot flashes has been shown in well-designed studies. Gabapentin (Neurontin ) Fatigue, dizziness, nausea, disorientation, swelling, weight gain Tends to be more effective for sleep in women who are also suffering with insomnia. Clonidine (Catapres ) Dry mouth, drowsiness, fatigue, constipation, lowers blood pressure Relieved hot flashes in some, but not all studies.Less commonly used than some of the other options. Non-prescription, herbal, xgmj-idn-bujnjpk therapies: Drug Side Effects Effectiveness Evening Partridge Oil Nausea, diarrhea, headache. Only one well-designed study showing not effective. Black cohosh Mild stomach upset. Safe up to 6 months only due to possible estrogen-like effects. Liver toxicity has been reported. Some small, short-term studies have suggested benefits, however most studies do not suggest that it works. Soy (plant estrogen) Also referred to as phytoestrogens. Appears safe if consumed in foods. In supplement form, consistency of dose and quality can be a concern. Supplements are not recommended for breast cancer survivors For the most part, results from clinical studies show that phytoestrogens are not effective for treatment of hot flashes. Acupuncture Uncomfortable for some, often costly. Generally well-tolerated, but multiple visits required Individual trials have reported some benefits, but larger studies have not shown any improvement over placebo procedures. However some women do report benefits with this, so it is possible that more well-designed studies are needed to answer this question. Vitamin E 13% increase risk of heart failure. Might increase rate in those who use high doses for a long time. A higher risk of prostate cancer has also been shown, but applies only to men. One study showing effective. However the improvement seen in this was only one less hot flash per day compared to placebo. Are the neph-cih-unksfra herbal products (botanicals) safe? While safe when taken in moderate amounts through diet, the consumption of extraordinary amounts of soy and isoflavone supplements may be harmful to women with a history of estrogen-dependent cancer, like breast cancer, and possibly to other women as well. More research is needed to determine the safety and effectiveness of botanical treatments. For example, Ginseng, [place], Wild yam, Progesterone cream, reflexology, and magnetic devices are sold to help menopausal symptoms, but there are no good studies looking at their safety or effectiveness. To make an informed decision about the use of these treatments, be sure to discuss them with your doctor. Because little is known about many botanicals, the best way to evaluate their safety and effectiveness is to become an educated consumer. Here are some tips to consider when shopping for alternative therapies. Ask yourself the following questions: What is the treatment? What does it involve? How does it work? Why does it work? Are there any risks? What are the side effects? Is it effective? (Ask for evidence or proof) How much does it cost? Once you answer these questions, discuss the therapy with your doctor. Make sure your doctor knows what therapy you are considering in order to discuss possible interactions or side effects with your current treatment. What are warning signs that a product may not be legitimate? When trying to determine whether or not a product is what it says it is, one of the elements you may want to look at is how the product is promoted. Be cautious of products promoted through: [employer] Direct mailings [employer] Ads disguised as valid news articles Ads in the back of magazines Additional red flags to look for include: Big claims: If products claim to be a cure for your condition, or gives outrageous claims, be cautious. Source: Be wary if the product is only offered through one [employer] i farmworker or purchased only through a health care provider s office. Ingredients: Make sure all of the active ingredients are listed, and don t trust secret formulas. Testimonials: Remember that only people who are satisfied with a product give testimonials and that they may be getting paid for their endorsement References: National Center for Complementary and Alternative Medicine. Vitamin E. [facility].nih.gov Assessed September 18, 2012 Nayeli Donohue et al. meta-analysis: High Dosage Vitamin E. Supplementation Might Increase All Cause Mortality. Annals of Internal Medicine June 23, 2004. annals.org National Center for Complementary and Alternative Medicine. Menopausal Symptoms and CAM. nccam.nih.gov Accessed September 18, 2012 [place] [employer], Hormone Therapy for women in 2012. www.menopause.org Assessed September 18, 2012 [place] [employer] Gynec[employer]. Publications. The Menopause Years. www.acog.org Accessed 08/17/2010 Centers for Disease Control and Prevention. Women s Reproductive Health: Menopause. www.cdc.gov Accessed 08/17/2010 National [place] on Aging. Age Page: Menopause. www.jaimie.nih.gov Accessed 08/17/2010 COPING WITH THE SYMPTOMS OF MENOPAUSE Not all women experience menopause in the same way. For some, menopause can bring on an array of uncomfortable symptoms. Others may experience few discomforts and are happy to no longer have periods. Relieving hot flashes Identify and avoid your hot flash triggers. Common triggers include stress, caffeine, alcohol, spicy foods, tight clothing, heat and cigarette smoke. Keep the bedroom cool. Use fans during the day. Wear light layers of clothing. Try deep, slow abdominal breathing (6 to 8 breaths per minute). Practice deep breathing for 15 minutes in the morning, 15 minutes in the evening and at the onset of hot flashes. Exercise daily. Walking, swimming, dancing and bicycling are good choices. Try taking vitamin E supplements (400 international units [IUs] twice a day) and ibuprofen (Motrin, Advil, Nuprin) at bedtime. Note: Do not take ibuprofen and aspirin together. Add soy protein (40 to 60 mg) to your diet daily. Relieving insomnia Keep the bedroom cool to prevent night sweats. Avoid using sleeping pills. Exercise daily. Avoid caffeine and alcohol at night. Take a warm bath or shower at bedtime. Eat cereal and milk products at bedtime or during the night. (Avoid products that contain caffeine.) Coping with mood swings, fears, and depression Find a self-calming skill to practice, such as yoga, meditation or slow, deep breathing. Avoid tranquilizers, if possible. Engage in a creative outlet that fosters a sense of achievement. Stay connected with your family and community; nurture your friendships. Relieving painful intercourse Try using a vaginal water-based moisturizing lotion or lubricant during intercourse. Preventing osteoporosis Calcium can slow bone loss and may decrease fractures. Consume 1,500 milligrams of calcium a day. Good sources of calcium are calcium supplements such as Tums; fruit juices and breads; low-fat dairy products; green leafy vegetables such as broccoli, kale and spinach greens; almonds; and soy milk. Vitamin D aids in the absorption of calcium and stimulates bone formation. Consume 400 to 800 IUs of vitamin D a day. Eat foods low in sodium, low in animal protein and low in caffeine. Bone mass is built before menopause as a result of exercise, diet, and genetics. Exercises that increase bone mass make the muscles work against gravity. Walking and muscle-building exercises may reduce bone loss and fractures and improve balance. Preventing heart disease Eat a variety of vegetables, fruits, and whole grains, including soy food. Limit salt, cholesterol, and fat, especially animal fat. Get at least 30 minutes of moderate exercise over the course of each day. Many activities increase the heart rate, including gardening, walking, dancing, and aerobic exercises. The activity period does not need to be continuous. Don't smoke. Maintain a healthy weight. Follow your health care provider's instructions for controlling high blood pressure, diabetes, and cholesterol. Take a vitamin supplement. Choose one that contains antioxidants, including vitamins E and C. Take one baby aspirin daily, if approved by your physician. Note: Do not take ibuprofen and aspirin together. Copyright 6904-0220 [employer] [facility]. All rights reserved This information is provided by the [facility] and is not intended to replace the medical advice of your doctor or health care provider. Please consult your health care provider for advice about a specific medical condition. For additional written health information, please contact the Health Information Center at the [facility] or toll-free extension [phone]. This document was last reviewed on: 2002 index#[id number] I spent a total of 20 minutes on the date of the service which included preparing to see the patient, [id number]-stwy patient care, completing clinical documentation, obtaining and/or reviewing separately obtained history, counseling and educating the patient/family/caregiver, and ordering medications, tests, or procedures Meka Chauhan DO documented in this encounter [facility] 08-19-2023 Note HNO ID: [id number] Author: KINSEY LEVINE APRN.RESEARCH CHEMICAL ENGINEER Service: ? Author Type: Nurse Practitioner Type: Progress Notes Filed: 08/24/2023 23:30 Note Text: FOLLOW UP - PSYCHIATRIC PROGRESS NOTE Visit Type:Virtual Visit utilizing two-way audio and video for at least a portion of the visit. Consent for virtual visit obtained verbally. Confidentiality limitations with virtual visits reviewed with the patient and guardian, if present, who have accepted the risk verbally prior to proceeding with encounter. I have communicated my name and active licensure. The patient's identity and physical location were verified at the time of this visit. Either the patient or their legal manufacturer's representative has been informed of the risks and benefits of -- and alternatives to -- treatment through a remote evaluation and consents to proceed with the evaluation remotely. Reason for Visit: Outpatient follow-up and safety monitoring of previously prescribed psychiatric medication, psychotherapy or other treatment CC: Follow up for psychiatric medication management HPI: Treatment plan from last visit on 07/22/2023: 1. Discussed the interaction between Nicotine use and Olanzapine. Worsening symptoms management via Olanzapine noted in the last 2 weeks since patient resumed nicotine use. Kristel would like to reduce nicotine use prior to considering an increase in Olanzapine dose. 2. Discussed the indication of Minipress in detail and encouraged the patient to utilize it every night to address anxiety and sleep difficulties related to nightmares. 3. Continue Gabapentin at the same dose. 4. Utilize Diazepam as needed to manage panic symptoms. 5. Complete fasting monitoring lab work to assess for any metabolic side effects associated with longterm use of Olanzapine. 6. Encouraged to schedule an appointment with PCP to discuss concerns related to headaches and nausea. 7. Has an appointment with an OB in August to discuss her concerns related to hormone changes. Today Kristel shares that she is working on some crafts right now. 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 Her son is going be 11 years old soon. She can't believe he is so grown. She still has not been able to get her fasting lab work completed. Kept experiencing anxiety and that prevented her from going to the lab. Has an OB appointment on September 04. Discussed getting her lab work that day incase her OB orders more lab work. Would like to complete it all in one sitting. She has not seen an OB for over 7 years now. She is interested in discussing her concerns related to hot flashes and moodiness with them. She remembers that when they did her hysterectomy, they said that she may start experiencing pre-menopause symptoms early. Her sex drive is higher. She gets tearful easier. She has noticed her breasts feel sore and get bigger at times. Denies any drainage from the breasts. She has been able to get better sleep. Continues to feel tired in the morning when she wakes up. Starting Prazosin has helped with her nightmares. Is able to go back to sleep if she wakes up. She has been able to be slightly more productive. Has been struggling with irritability at times. She spent some time working on the flower beds in her garden. Has been starting to drive again. Restarted 1 week ago. Still has anxiety while driving. Does not go alone. Trying to push herself more to get out of the house. Her boyfriend is trying to get her to drive farther. She takes water with her to cope if she starts to get anxious. Would like to spend more time outside. She tries to use coping skills first to manage anxiety and panic symptoms. In the last 30 days, she has taken Valium around 5 to 6 times at most. Has noticed a lump behind her ear. It is not painful but its bothersome as she is aware of it. She has not seen a primary care provider in a while. Encouraged to schedule an appointment. Risks and benefits of the medication, including any black box warnings, were discussed with the patient. Interval Progress: Slightly improved PATIENT DATA: Generalized Anxiety Disorder Scale (ZAIRE-7) ZAIRE - 7 SCORES 04/04/2023 07/22/2023 08/16/2023 ZAIRE-7 Score 6 11 6 (0-4) minimal anxiety, (5-9) mild anxiety, (10-14) moderate anxiety, (15-21) severe anxiety Patient Health Questionnaire (PHQ-9) PHQ-9 04/04/2023 07/22/2023 08/16/2023 Score 5 11 5 (0-4) minimal depression, (5-9) mild depression, (10-14) moderate depression, (15-19) moderately severe depression, (20-27) severe depression PROMIS Global Health PROMIS Global Health - (T-Scores - the mean of general population = 50. Five points is a clinically meaningful difference.) 11/09/2022 02/28/2023 07/22/2023 Physical T-Score 34.9 39.8 42.3 Mental T-Score 33.8 31.3 31.3 PAST MEDICAL HISTORY Diagnosis Date Abnormal glandular Papanicolaou smear of cervix 2001 Abn. Pap smear (cervix),ASCUS Anxiety (more content not included)... [facility] 08-19-2023 History of Presen t illness Narrative FOLLOW UP - PSYCHIATRIC PROGRESS NOTE Visit Type:Virtual Visit utilizing two-way audio and video for at least a portion of the visit. Consent for virtual visit obtained verbally. Confidentiality limitations with virtual visits reviewed with the patient and guardian, if present, who have accepted the risk verbally prior to proceeding with encounter. I have communicated my name and active licensure. The patient's identity and physical location were verified at the time of this visit. Either the patient or their legal manufacturer's representative has been informed of the risks and benefits of -- and alternatives to -- treatment through a remote evaluation and consents to proceed with the evaluation remotely. Reason for Visit: Outpatient follow-up and safety monitoring of previously prescribed psychiatric medication, psychotherapy or other treatment CC: Follow up for psychiatric medication management HPI: Treatment plan from last visit on 07/22/2023: 1. Discussed the interaction between Nicotine use and Olanzapine. Worsening symptoms management via Olanzapine noted in the last 2 weeks since patient resumed nicotine use. Kristel would like to reduce nicotine use prior to considering an increase in Olanzapine dose. 2. Discussed the indication of Minipress in detail and encouraged the patient to utilize it every night to address anxiety and sleep difficulties related to nightmares. 3. Continue Gabapentin at the same dose. 4. Utilize Diazepam as needed to manage panic symptoms. 5. Complete fasting monitoring lab work to assess for any metabolic side effects associated with longterm use of Olanzapine. 6. Encouraged to schedule an appointment with PCP to discuss concerns related to headaches and nausea. 7. Has an appointment with an OB in August to discuss her concerns related to hormone changes. Today Kristel shares that she is working on some crafts right now. 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 Her son is going be 11 years old soon. She can't believe he is so grown. She still has not been able to get her fasting lab work completed. Kept experiencing anxiety and that prevented her from going to the lab. Has an OB appointment on September 04. Discussed getting her lab work that day incase her OB orders more lab work. Would like to complete it all in one sitting. She has not seen an OB for over 7 years now. She is interested in discussing her concerns related to hot flashes and moodiness with them. She remembers that when they did her hysterectomy, they said that she may start experiencing pre-menopause symptoms early. Her sex drive is higher. She gets tearful easier. She has noticed her breasts feel sore and get bigger at times. Denies any drainage from the breasts. She has been able to get better sleep. Continues to feel tired in the morning when she wakes up. Starting Prazosin has helped with her nightmares. Is able to go back to sleep if she wakes up. She has been able to be slightly more productive. Has been struggling with irritability at times. She spent some time working on the flower beds in her garden. Has been starting to drive again. Restarted 1 week ago. Still has anxiety while driving. Does not go alone. Trying to push herself more to get out of the house. Her boyfriend is trying to get her to drive farther. She takes water with her to cope if she starts to get anxious. Would like to spend more time outside. She tries to use coping skills first to manage anxiety and panic symptoms. In the last 30 days, she has taken Valium around 5 to 6 times at most. Has noticed a lump behind her ear. It is not painful but its bothersome as she is aware of it. She has not seen a primary care provider in a while. Encouraged to schedule an appointment. Risks and benefits of the medication, including any black box warnings, were discussed with the patient. Interval Progress: Slightly improved PATIENT DATA: Generalized Anxiety Disorder Scale (ZAIRE-7) ZAIRE - 7 SCORES 04/04/2023 07/22/2023 08/16/2023 ZAIRE-7 Score 6 11 6 (0-4) minimal anxiety, (5-9) mild anxiety, (10-14) moderate anxiety, (15-21) severe anxiety Patient Health Questionnaire (PHQ-9) PHQ-9 04/04/2023 07/22/2023 08/16/2023 Score 5 11 5 (0-4) minimal depression, (5-9) mild depression, (10-14) moderate depression, (15-19) moderately severe depression, (20-27) severe depression PROMIS Global Health PROMIS Global Health - (T-Scores - the mean of general population = 50. Five points is a clinically meaningful difference.) 11/09/2022 02/28/2023 07/22/2023 Physical T-Score 34.9 39.8 42.3 Mental T-Score 33.8 31.3 31.3 PAST MEDICAL HISTORY Diagnosis Date Abnormal glandular Papanicolaou smear of cervix 2001 Abn. Pap smear (cervix),ASCUS Anxiety Bulging disc L5 Chlamydia 2001 Galactorrhea not associated with childbirth Goiter 03/04/2015 Headache History of migraine Mastodynia Nerve damage right leg hemorrhage 2001 RECURRENT UTI WITH PREGNANCIES Rh negative state in antepartum period 05/26/2012 Tobacco use disorder PAST SURGICAL HISTORY Procedure Laterality Date DILATION & CURETTAGE DX&/THER NONOBSTETRIC Dilation & curettage ESSURE SALPINGECTOMY Bilateral 06/19/15 TONSILLECTOMY & ADENOIDECTOMY <AGE 12 VAGINAL HYSTERECTOMY UTERUS 250 GM/< 06/19/15 [facility] Current Outpatient Medications Medication Sig Dispense Refill gabapentin (NEURONTIN) 300 mg capsule Take 1 capsule by mouth three times a day for 60 days. 90 capsule 0 OLANZapine (ZYPREXA) 15 mg tablet Take 1 tablet by mouth daily at bedtime. 30 tablet 0 diazePAM (VALIUM) 5 mg tablet Take 1 tablet by mouth once daily as needed for anxiety for up to 30 days. 30 tablet 0 prazosin (MINIPRESS) 1 mg cap Take 1 capsule by mouth daily at bedtime. 30 capsule 0 dicyclomine (BENTYL) 10 mg capsule TAKE 1 CAPSULE THREE TIMES DAILY BEFORE MEALS albuterol HFA (PROAIR HFA) 90 mcg/actuation inhaler Inhale 1-2 Puffs as instructed every 4 hours as needed. 1 Inhaler 0 No current facility-administered medications for this visit. ROS: See HPI PFSH: See HPI VITAL SIGNS: There were no vitals filed for this visit. MENTAL STATUS EXAM: CONSTITUTIONAL: Casually dressed ORIENTATION: Person, Place, Time and Situation MEMORY: Recent intact, Remote intact, Immediate intact CONCENTRATION: Normal MOOD: anxious AFFECT: Full and appropriate to topic SPEECH : Clear & distinct LANGUAGE : Normal ASSOCIATIONS: Intact THOUGHT PROCESS : Logical, Coherent, and Rational PROGRESSION : There was no evidence of disturbance in thought perception or progression. FUND OF KNOWLEDGE : Appropriate and Adequate SUICIDE: None HOMICIDE: None DATA REVIEWED: Psychiatric scales and Electronic medical record DIAGNOSIS: PRIMARY: Bipolar 2 disorder Secondary : Generalized Anxiety Disorder Other : none GAF: -60-51 Moderate symptoms or moderate difficulty in social, occupational or school functioning. TREATMENT PLAN: 1. Continue psychiatric medications at the same dose. 2. Discussed the importance of completing monitoring lab work. Patient plans on completing it after her OB appointment incase they want to add additional lab work. Has anxiety related to completing lab work. Aware that she can utilize Diazepam for this situation. 3. Encouraged patient to schedule an appointment with her PCP. 4. Utilize Diazepam only as needed to manage severe episodes of anxiety. 5. Encouraged patient to continue challenging her anxiety related to driving. MEDICATION CHANGES: Current medication regimen unchanged. - Patient denies any involuntary movement related side effects. - PDMP report was reviewed and found to be appropriate without any signs of misuse or diversion. Follow Up: 4 weeks I spent a total of 45 minutes on the date of the service which included preparing to see the patient, [id number] patient care, completing clinical documentation, obtaining and/or reviewing separately obtained history, counseling and educating the patient/family/caregiver, ordering medications, tests, or procedures, communicating with other HCPs (not separately reported), independently interpreting results (not separately reported), and communicating results to the patient/family/caregiver. ADD ON PSYCHOTHERAPY CODE : No SIGNATURE: Kinsey Levine APRN.CNP PATIENT NAME: Kristel Chilel DATE: August 19, 2023 TIME: 2:38 PM documented in this encounter [facility] 07-22-2023 Note HNO ID: [id number] Author: KINSEY LEVINE APRN.CNP Service: ? Author Type: Nurse Practitioner Type: Progress Notes Filed: 07/29/2023 17:06 Note Text: FOLLOW UP - PSYCHIATRIC PROGRESS NOTE Visit Type:Virtual Visit utilizing two-way audio and video for at least a portion of the visit. Consent for virtual visit obtained verbally. Confidentiality limitations with virtual visits reviewed with the patient and guardian, if present, who have accepted the risk verbally prior to proceeding with encounter. I have communicated my name and active licensure. The patient's identity and physical location were verified at the time of this visit. Either the patient or their legal manufacturer's representative has been informed of the risks and benefits of -- and alternatives to -- treatment through a remote evaluation and consents to proceed with the evaluation remotely. Reason for Visit: Outpatient follow-up and safety monitoring of previously prescribed psychiatric medication, psychotherapy or other treatment CC: Follow up for psychiatric medication management HPI: Treatment plan from last visit on 04/04/2023: Complete monitoring lab work. Schedule an appointment with an OB to discuss some symptoms that patient is concerned may be related to hormonal concerns post her hysterectomy. Continue psychiatric medications at the same dose. Schedule an appointment with this provider after following up with with her OB and her PCP regarding her headaches. Today Kristel shares that I am doing okay . She is going back to school for her high school diploma. Patient and daughter are trying to support each other. Daughter is in college. Started smoking a pack a day again. Restarted 2 weeks ago. Has been feeling stressed out and tired. Has noticed that she is more irritable. Picking fights with her boyfriend and daughter. Has stress related to being broke and paying bills. Has tried to get out of the house. Noticed more mood swings and crying. No longer having hot flashes. Not sleeping very well. Discussed the interaction between nicotine and olanzapine. Has been struggling with more headaches. Has an appointment with an OB to discuss her concerns that hormone level are impacting her. She got very anxious and turned back twice when she tried to complete her lab work. Discussed utilizing diazepam before the appointment. She has not had any falls but has noticed that she is slightly unsteady. Does not feel that it is related to Gabapentin or Diazepam which she rarely uses. Has not been taking Prazosin consistently. Does feel like she sleeps better when she takes the Prazosin. Does still struggle with nightmares. Daughter has been concerned about her and has been sleeping in her room. Has noticed that she has gained weight recently. Aware of the metabolic side effects related to her medications. Noticed that she was using more caffeine when she quit smoking. The gabapentin and ibuprofen have been helping with her back pain. Has been concerned about nausea. Wakes up nauseous at times. Risks and benefits of the medication, including any black box warnings, were discussed with the patient. Interval Progress: Slightly worse PATIENT DATA: Generalized Anxiety Disorder Scale (ZAIRE-7) ZAIRE - 7 SCORES 02/28/2023 04/04/2023 07/22/2023 ZAIRE-7 Score 12 6 11 (0-4) minimal anxiety, (5-9) mild anxiety, (10-14) moderate anxiety, (15-21) severe anxiety Patient Health Questionnaire (PHQ-9) PHQ-9 02/28/2023 04/04/2023 07/22/2023 Score 5 5 11 (0-4) minimal depression, (5-9) mild depression, (10-14) moderate depression, (15-19) moderately severe depression, (20-27) severe depression PROMIS Global Health PROMIS Global Health - (T-Scores - the mean of general population = 50. Five points is a clinically meaningful difference.) 11/09/2022 02/28/2023 07/22/2023 Physical T-Score 34.9 39.8 42.3 Mental T-Score 33.8 31.3 31.3 PAST MEDICAL HISTORY Diagnosis Date Abnormal glandular Papanicolaou smear of cervix 2001 Abn. Pap smear (cervix),ASCUS Anxiety Bulging disc L5 Chlamydia 2001 Galactorrhea not associated with childbirth Goiter 03/04/2015 Headache History of migraine Mastodynia Nerve damage right leg hemorrhage 2001 RECURRENT UTI WITH PREGNANCIES Rh negative state in antepartum period 05/26/2012 Tobacco use disorder PAST SURGICAL HISTORY Procedure Laterality Date DILATION AND CURETTAGE DXAND/THER NONOBSTETRIC Dilation AND curettage ESSURE SALPINGECTOMY Bilateral 06/19/15 TONSILLECTOMY AND ADENOIDECTOMY VAGINAL HYSTERECTOMY UTERUS 250 GM/< 06/19/15 [facility] Current Outpatient Medications Medication Sig Dispense Refill OLANZapine (ZYPREXA) 15 mg tablet Take 1 tablet by mouth daily at bedtime. 30 tablet 0 gabapentin (NEURONTIN) 300 mg capsule Take 1 capsule by mouth three times a day for 60 days. 90 capsule 0 dicyclomine (BENTYL) 10 mg capsule TAKE 1 CAPSU (more content not included)... [facility] 07-22-2023 History of Presen t illness Narrative FOLLOW UP - PSYCHIATRIC PROGRESS NOTE Visit Type:Virtual Visit utilizing two-way audio and video for at least a portion of the visit. Consent for virtual visit obtained verbally. Confidentiality limitations with virtual visits reviewed with the patient and guardian, if present, who have accepted the risk verbally prior to proceeding with encounter. I have communicated my name and active licensure. The patient's identity and physical location were verified at the time of this visit. Either the patient or their legal manufacturer's representative has been informed of the risks and benefits of -- and alternatives to -- treatment through a remote evaluation and consents to proceed with the evaluation remotely. Reason for Visit: Outpatient follow-up and safety monitoring of previously prescribed psychiatric medication, psychotherapy or other treatment CC: Follow up for psychiatric medication management HPI: Treatment plan from last visit on 04/04/2023: Complete monitoring lab work. Schedule an appointment with an OB to discuss some symptoms that patient is concerned may be related to hormonal concerns post her hysterectomy. Continue psychiatric medications at the same dose. Schedule an appointment with this provider after following up with with her OB and her PCP regarding her headaches. Today Kristel shares that I am doing okay . She is going back to school for her high school diploma. Patient and daughter are trying to support each other. Daughter is in college. Started smoking a pack a day again. Restarted 2 weeks ago. Has been feeling stressed out and tired. Has noticed that she is more irritable. Picking fights with her boyfriend and daughter. Has stress related to being broke and paying bills. Has tried to get out of the house. Noticed more mood swings and crying. No longer having hot flashes. Not sleeping very well. Discussed the interaction between nicotine and olanzapine. Has been struggling with more headaches. Has an appointment with an OB to discuss her concerns that hormone level are impacting her. She got very anxious and turned back twice when she tried to complete her lab work. Discussed utilizing diazepam before the appointment. She has not had any falls but has noticed that she is slightly unsteady. Does not feel that it is related to Gabapentin or Diazepam which she rarely uses. Has not been taking Prazosin consistently. Does feel like she sleeps better when she takes the Prazosin. Does still struggle with nightmares. Daughter has been concerned about her and has been sleeping in her room. Has noticed that she has gained weight recently. Aware of the metabolic side effects related to her medications. Noticed that she was using more caffeine when she quit smoking. The gabapentin and ibuprofen have been helping with her back pain. Has been concerned about nausea. Wakes up nauseous at times. Risks and benefits of the medication, including any black box warnings, were discussed with the patient. Interval Progress: Slightly worse PATIENT DATA: Generalized Anxiety Disorder Scale (ZAIRE-7) ZAIRE - 7 SCORES 02/28/2023 04/04/2023 07/22/2023 ZAIRE-7 Score 12 6 11 (0-4) minimal anxiety, (5-9) mild anxiety, (10-14) moderate anxiety, (15-21) severe anxiety Patient Health Questionnaire (PHQ-9) PHQ-9 02/28/2023 04/04/2023 07/22/2023 Score 5 5 11 (0-4) minimal depression, (5-9) mild depression, (10-14) moderate depression, (15-19) moderately severe depression, (20-27) severe depression PROMIS Global Health PROMIS Global Health - (T-Scores - the mean of general population = 50. Five points is a clinically meaningful difference.) 11/09/2022 02/28/2023 07/22/2023 Physical T-Score 34.9 39.8 42.3 Mental T-Score 33.8 31.3 31.3 PAST MEDICAL HISTORY Diagnosis Date Abnormal glandular Papanicolaou smear of cervix 2001 Abn. Pap smear (cervix),ASCUS Anxiety Bulging disc L5 Chlamydia 2001 Galactorrhea not associated with childbirth Goiter 03/04/2015 Headache History of migraine Mastodynia Nerve damage right leg hemorrhage 2001 RECURRENT UTI WITH PREGNANCIES Rh negative state in antepartum period 05/26/2012 Tobacco use disorder PAST SURGICAL HISTORY Procedure Laterality Date DILATION & CURETTAGE DX&/THER NONOBSTETRIC Dilation & curettage ESSURE SALPINGECTOMY Bilateral 06/19/15 TONSILLECTOMY & ADENOIDECTOMY <AGE 12 VAGINAL HYSTERECTOMY UTERUS 250 GM/< 06/19/15 [facility] Current Outpatient Medications Medication Sig Dispense Refill OLANZapine (ZYPREXA) 15 mg tablet Take 1 tablet by mouth daily at bedtime. 30 tablet 0 gabapentin (NEURONTIN) 300 mg capsule Take 1 capsule by mouth three times a day for 60 days. 90 capsule 0 dicyclomine (BENTYL) 10 mg capsule TAKE 1 CAPSULE THREE TIMES DAILY BEFORE MEALS albuterol HFA (PROAIR HFA) 90 mcg/actuation inhaler Inhale 1-2 Puffs as instructed every 4 hours as needed. 1 Inhaler 0 No current facility-administered medications for this visit. ROS: See HPI PFSH: See HPI VITAL SIGNS: There were no vitals filed for this visit. MENTAL STATUS EXAM: CONSTITUTIONAL: Casually dressed ORIENTATION: Person, Place, Time and Situation MEMORY: Recent intact, Remote intact, Immediate intact CONCENTRATION: Scattered and Anxiety interferes MOOD: anxious and sad AFFECT: Full and appropriate to topic SPEECH : Clear & distinct LANGUAGE : Normal ASSOCIATIONS: Intact THOUGHT PROCESS : Logical, Coherent, and Rational PROGRESSION : There was no evidence of disturbance in thought perception or progression. FUND OF KNOWLEDGE : Appropriate and Adequate SUICIDE: None HOMICIDE: None DATA REVIEWED: Psychiatric scales, Labs, Electronic medical record, and Mold Worker notes DIAGNOSIS: Bipolar 2 disorder Generalized Anxiety Disorder Current increased nicotine use - interfering with the efficacy of Olanzapine. Nightmares GAF: -50-41 Serious symptoms or any serious impairment in social, occupational or school functioning. TREATMENT PLAN: 1. Discussed the interaction between Nicotine use and Olanzapine. Worsening symptoms management via Olanzapine noted in the last 2 weeks since patient resumed nicotine use. Kristel would like to reduce nicotine use prior to considering an increase in Olanzapine dose. 2. Discussed the indication of Minipress in detail and encouraged the patient to utilize it every night to address anxiety and sleep difficulties related to nightmares. 3. Continue Gabapentin at the same dose. 4. Utilize Diazepam as needed to manage panic symptoms. 5. Complete fasting monitoring lab work to assess for any metabolic side effects associated with life skills educator use of Olanzapine. 6. Encouraged to schedule an appointment with PCP to discuss concerns related to headaches and nausea. 7. Has an appointment with an OB in August to discuss her concerns related to hormone changes. MEDICATION CHANGES: Current medication regimen unchanged. Prescriptions given Kristel denies any involuntary movement related side effects. PDMP report was reviewed and found to be appropriate without any signs of misuse or diversion. Follow Up: 4 weeks I spent a total of 48 minutes on the date of the service which included preparing to see the patient, [id number] patient care, completing clinical documentation, obtaining and/or reviewing separately obtained history, counseling and educating the patient/family/caregiver, ordering medications, tests, or procedures, communicating with other HCPs (not separately reported), independently interpreting results (not separately reported), and communicating results to the patient/family/caregiver. ADD ON PSYCHOTHERAPY CODE : No SIGNATURE: Kinsey Levine APRN.CNP PATIENT NAME: Kristel Chilel DATE: July 22, 2023 TIME: 2:07 PM documented in this encounter [facility] 06-23-2023 Note HNO ID: [id number] Author: COLETTE ALEX APRN.CNP Service: ? Author Type: Nurse Practitioner Type: Progress Notes Filed: 06/23/2023 10:50 Note Text: Seen on [facility] Located in [place] C/o left ear pain. D/t limitations online, referred for in person evaluation to r/o AOM.To be seen by PCP and/or walk in clinic. Pt agreeable to plan and denies further questions and/or concerns. Visit cancelled. Coeltte Alex APRN.CNP [facility] 04-04-2023 Note HNO ID: [id number] Author: Kinsey Levine APRN.CNP Service: ? Author Type: Nurse Practitioner Type: Progress Notes Filed: 04/05/2023 9:17 PM Note Text: PSYC FOLLOW UP - PSYCHIATRIC PROGRESS NOTE DIAGNOSIS: Generalized Anxiety Disorder Bipolar 2 disorder Malaise and fatigue Hot flashes, acne, irritability Nightmares GAF: -50-41 Serious symptoms or any serious impairment in social, occupational or school functioning. TREATMENT PLAN: Complete monitoring lab work. Schedule an appointment with an OB to discuss some symptoms that patient is concerned may be related to hormonal concerns post her hysterectomy. Continue psychiatric medications at the same dose. Schedule an appointment with this provider after following up with with her OB and her PCP regarding her headaches. The effects and side effects of all the medications were reviewed in detail with the patient. She is in agreement with the treatment plan and aware to reach out with any questions, concerns, or worsening of symptoms prior to the next appointment. She denies any involuntary movement related side effects. PDMP report was reviewed and found to be appropriate without any signs of misuse or diversion. CC: Follow up for psychiatric medication management With the patient consent, visit was performed virtually. I have communicated my name and active licensure. The patient's identity and physical location were verified at the time of this visit. Either the patient or their legal manufacturer's representative has been informed of the risks and benefits of -- and alternatives to -- treatment through a remote evaluation and consents to proceed with the evaluation remotely. HPI: Kristel Chilel is a 38 year old Female with a history of ZAIRE, Bipolar 2 disorder, and nightmares presenting today for follow-up. Date of last visit: 02/28/2023 Plan from last visit: Start Prazosin at bedtime to help with nightmares. Continue the rest of the psychiatric medications at the same dose. Utilize Valium only as needed to help with severe anxiety and panic symptoms. Today Kristel shares that she still feels the same way. Her mood is down the last week. Wonders if it is related to the weather. Uncle last week. Has been more lozano. Started noticing it last week. Her appetite is fluctuating. She is not sleeping well. Has trouble staying asleep. Has been struggling with nightmares. She has been engaging in breathing techniques and removing herself from the situation. Gets irritable without any particular reason. Picked a fight with her daughter. She has been feeling more tired and worn out. Discussed getting lab work completed. She is wondering if she maybe going through early menopause. Has been experiencing symptoms such as hot flashes, acne, and mood changes. Her periods were irregular. She had her hysterectomy 7 to 8 years ago. Has been struggling with headaches. She is no longer taking her imitrex. She has gained weight after quiting smoking. She has a hard time getting out of the house to go to her doctor's appointment. She has been engaging in more self-care. Interval Progress: Same Risks and benefits of the medication, including any black box warnings, were discussed with the patient. Social History: See HPI PATIENT DATA: Generalized Anxiety Disorder Scale (ZAIRE-7) ZAIRE - 7 SCORES 11/09/2022 02/28/2023 04/04/2023 ZAIRE-7 Score 8 12 6 (0-4) minimal anxiety, (5-9) mild anxiety, (10-14) moderate anxiety, (15-21) severe anxiety Patient Health Questionnaire (PHQ-9) PHQ-9 11/09/2022 02/28/2023 04/04/2023 Score 10 5 5 (0-4) minimal depression, (5-9) mild depression, (10-14) moderate depression, (15-19) moderately severe depression, (20-27) severe depression ROS: See HPI General: See HPI HEENT: Negative for recent changes in vision or hearing, no nasal drainage Respiratory: Negative for cough, wheezing or SOB Cardiovascular: Negative for chest pain GI: Negative for nausea, vomiting, change in bowel habits MUSCULOSKELETAL: Negative for acute back or joint pain SKIN: Negative for rash NEURO: Negative for headaches, seizures, focal neurological deficits All other systems negative. VITAL SIGNS: BP Temp Pulse Resp SpO2 MENTAL STATUS EXAMINATION: Appearance: Casually groomed, appears stated age Behavior: Appropriately engaged Psychomotor: No psychomotor agitation Cognition Level of Consciousness: Awake and alert. No fluctuation in wakefulness. Orientation: Grossly oriented Memory: Intact Attention/Concentration: Good Fund of Knowledge: Able to demonstrate an awareness of current events. Mood: Anxious Affect: Congruent to mood Speech/Language: Appropriate tone, prosody, yamileth, phonetics, and syntax Thought Form: Goal-directed. No loosening of associations. Thought Content: No delusions noted or endorsed. Perceptual Disturbances: Did not appear to respond to auditory stimuli (more content not included)... [facility] 04-04-2023 History of Presen t illness Narrative Images from the original note were not included. PSYC FOLLOW UP - PSYCHIATRIC PROGRESS NOTE DIAGNOSIS: Generalized Anxiety Disorder Bipolar 2 disorder Malaise and fatigue Hot flashes, acne, irritability Nightmares GAF: -50-41 Serious symptoms or any serious impairment in social, occupational or school functioning. TREATMENT PLAN: Complete monitoring lab work. Schedule an appointment with an OB to discuss some symptoms that patient is concerned may be related to hormonal concerns post her hysterectomy. Continue psychiatric medications at the same dose. Schedule an appointment with this provider after following up with with her OB and her PCP regarding her headaches. The effects and side effects of all the medications were reviewed in detail with the patient. She is in agreement with the treatment plan and aware to reach out with any questions, concerns, or worsening of symptoms prior to the next appointment. She denies any involuntary movement related side effects. PDMP report was reviewed and found to be appropriate without any signs of misuse or diversion. CC: Follow up for psychiatric medication management With the patient consent, visit was performed virtually. I have communicated my name and active licensure. The patient's identity and physical location were verified at the time of this visit. Either the patient or their legal manufacturer's representative has been informed of the risks and benefits of -- and alternatives to -- treatment through a remote evaluation and consents to proceed with the evaluation remotely. HPI: Kristel Chilel is a 38 year old Female with a history of ZAIRE, Bipolar 2 disorder, and nightmares presenting today for follow-up. Date of last visit: 02/28/2023 Plan from last visit: Start Prazosin at bedtime to help with nightmares. Continue the rest of the psychiatric medications at the same dose. Utilize Valium only as needed to help with severe anxiety and panic symptoms. Today Kristel shares that she still feels the same way. Her mood is down the last week. Wonders if it is related to the weather. Uncle last week. Has been more lozano. Started noticing it last week. Her appetite is fluctuating. She is not sleeping well. Has trouble staying asleep. Has been struggling with nightmares. She has been engaging in breathing techniques and removing herself from the situation. Gets irritable without any particular reason. Picked a fight with her daughter. She has been feeling more tired and worn out. Discussed getting lab work completed. She is wondering if she maybe going through early menopause. Has been experiencing symptoms such as hot flashes, acne, and mood changes. Her periods were irregular. She had her hysterectomy 7 to 8 years ago. Has been struggling with headaches. She is no longer taking her imitrex. She has gained weight after quiting smoking. She has a hard time getting out of the house to go to her doctor's appointment. She has been engaging in more self-care. Interval Progress: Same Risks and benefits of the medication, including any black box warnings, were discussed with the patient. Social History: See HPI PATIENT DATA: Generalized Anxiety Disorder Scale (ZAIRE-7) ZAIRE - 7 SCORES 11/09/2022 02/28/2023 04/04/2023 ZAIRE-7 Score 8 12 6 (0-4) minimal anxiety, (5-9) mild anxiety, (10-14) moderate anxiety, (15-21) severe anxiety Patient Health Questionnaire (PHQ-9) PHQ-9 11/09/2022 02/28/2023 04/04/2023 Score 10 5 5 (0-4) minimal depression, (5-9) mild depression, (10-14) moderate depression, (15-19) moderately severe depression, (20-27) severe depression ROS: See HPI General: See HPI HEENT: Negative for recent changes in vision or hearing, no nasal drainage Respiratory: Negative for cough, wheezing or SOB Cardiovascular: Negative for chest pain GI: Negative for nausea, vomiting, change in bowel habits MUSCULOSKELETAL: Negative for acute back or joint pain SKIN: Negative for rash NEURO: Negative for headaches, seizures, focal neurological deficits All other systems negative. VITAL SIGNS: BP Temp Pulse Resp SpO2 MENTAL STATUS EXAMINATION: Appearance: Casually groomed, appears stated age Behavior: Appropriately engaged Psychomotor: No psychomotor agitation Cognition Level of Consciousness: Awake and alert. No fluctuation in wakefulness. Orientation: Grossly oriented Memory: Intact Attention/Concentration: Good Fund of Knowledge: Able to demonstrate an awareness of current events. Mood: Anxious Affect: Congruent to mood Speech/Language: Appropriate tone, prosody, yamileth, phonetics, and syntax Thought Form: Goal-directed. No loosening of associations. Thought Content: No delusions noted or endorsed. Perceptual Disturbances: Did not appear to respond to auditory stimuli. Safety: Suicidal Ideations: No suicidal ideation, intent or plan. Homicidal Ideations: No homicidal ideation, intent or plan. Insight: Appropriate Judgment: Appropriate I spent a total of 38 minutes on the date of the service which included preparing to see the patient, [id number] patient care, completing clinical documentation, and counseling and educating the patient/family/caregiver, ordering medications/labs. Kinsey Levine APRN.CNP April 04, 2023 3:01 PM This note was partially generated using [employer] voice recognition system. Note was reviewed for accuracy. There may be minor misspellings or grammar miscues with [employer] voice recognition. documented in this encounter [facility] 03-28-2023 Note HNO ID: [id number] Author: Kinsey Levine APRN.CNP Service: ? Author Type: Nurse Practitioner Type: Progress Notes Filed: 03/28/2023 9:49 PM Note Text: Patient requested to cancel the appointment as she was feeling ill. [facility] 03-28-2023 History of Presen t illness Narrative Patient requested to cancel the appointment as she was feeling ill. documented in this encounter [facility] 02-28-2023 History of Presen t illness Narrative Images from the original note were not included. PSYC FOLLOW UP - PSYCHIATRIC PROGRESS NOTE DIAGNOSIS: Generalized Anxiety Disorder Bipolar 2 disorder Nightmares GAF: -60-51 Moderate symptoms or moderate difficulty in social, occupational or school functioning. TREATMENT PLAN: Start Prazosin at bedtime to help with nightmares. Continue the rest of the psychiatric medications at the same dose. Utilize Valium only as needed to help with severe anxiety and panic symptoms. The effects and side effects of all the medications were reviewed in detail with the patient. She is in agreement with the treatment plan and aware to reach out with any questions, concerns, or worsening of symptoms prior to the next appointment. She denies any involuntary movement related side effects. PDMP report was reviewed and found to be appropriate without any signs of misuse or diversion. CC: Follow up for psychiatric medication management With the patient consent, visit was performed virtually. I have communicated my name and active licensure. The patient's identity and physical location were verified at the time of this visit. Either the patient or their legal manufacturer's representative has been informed of the risks and benefits of -- and alternatives to -- treatment through a remote evaluation and consents to proceed with the evaluation remotely. HPI: Kristel Chilel is a 38 year old Female with a history of ZAIRE, Bipolar 2 disorder, and nightmares presenting today for follow-up. Date of last visit: 08/13/2022 Plan from last visit: Increase Gabapentin to help with her anxiety and nerve pain. Utilize Diazepam to help with anxiety and panic symptoms. Continue Zyprexa at that same dose. Complete monitoring lab work. Schedule an appointment with her PCP for appropriate assessment regarding her physical health and pain. Follow up in 4 to 6 weeks. Today Kristel shares that she has been struggling with pneumonia. It was hard for her to talk due to the coughing. She has been struggling with more anxiety. Feels that it worsened 2 weeks ago. She has also noticed an increase in her nausea. She is not eating as much as she used to eat. This started last week when she was diagnosed with pneumonia. Her children are back to school. She is struggling with some reoccurring nightmares. Has trouble sleeping on and off. She has started to drive again short distances. She has been able to go on walks for a short time. Has been able to reduce her usage of Valium. It was last filled in July. Interval Progress: Slightly worse Risks and benefits of the medication, including any black box warnings, were discussed with the patient. Social History: See HPI PATIENT DATA: Generalized Anxiety Disorder Scale (ZAIRE-7) ZAIRE - 7 SCORES 08/13/2022 11/09/2022 02/28/2023 ZAIRE-7 Score 12 8 12 (0-4) minimal anxiety, (5-9) mild anxiety, (10-14) moderate anxiety, (15-21) severe anxiety Patient Health Questionnaire (PHQ-9) PHQ-9 08/13/2022 11/09/2022 02/28/2023 Score 8 10 5 (0-4) minimal depression, (5-9) mild depression, (10-14) moderate depression, (15-19) moderately severe depression, (20-27) severe depression ROS: See HPI General: Negative for fever, malaise, unintentional weight loss HEENT: Negative for recent changes in vision or hearing, no nasal drainage Respiratory: See HPI Cardiovascular: Negative for chest pain GI: Negative for nausea, vomiting, change in bowel habits MUSCULOSKELETAL: Negative for acute back or joint pain SKIN: Negative for rash NEURO: Negative for headaches, seizures, focal neurological deficits All other systems negative. VITAL SIGNS: BP Temp Pulse Resp SpO2 MENTAL STATUS EXAMINATION: Appearance: Appropriately groomed, appears stated age Behavior: Appropriately engaged Psychomotor: No psychomotor agitation Cognition Level of Consciousness: Awake and alert. No fluctuation in wakefulness. Orientation: Grossly oriented Memory: Intact Attention/Concentration: Good Fund of Knowledge: Able to demonstrate an awareness of current events. Mood: Anxious Affect: Congruent to mood Speech/Language: Appropriate tone, prosody, yamileth, phonetics, and syntax Thought Form: Goal-directed. No loosening of associations. Thought Content: No delusions noted or endorsed. Perceptual Disturbances: Did not appear to respond to auditory stimuli. Safety: Suicidal Ideations: No suicidal ideation, intent or plan. Homicidal Ideations: No homicidal ideation, intent or plan. Insight: Appropriate Judgment: Appropriate I spent a total of 28 minutes on the date of the service which included preparing to see the patient, [id number] patient care, completing clinical documentation, and counseling and educating the patient/family/caregiver, ordering medications/labs. Kinsey Levine APRN.CNP February 28, 2023 3:35 PM This note was partially generated using [employer] voice recognition system. Note was reviewed for accuracy. There may be minor misspellings or grammar miscues with [employer] voice recognition. documented in this encounter [facility] 10-15-2022 Miscellaneous Notes Patient has been identified by name and date of : Yes Last office visit in this department: 10/13/2022 RX INSTRUCTIONS: Patient aware RX will be sent to pharmacy. No need to notify patient. Patient phones requesting refills as follows: Requested Prescriptions Pending Prescriptions Disp Refills OLANZapine (ZYPREXA) 15 mg tablet 30 tablet 1 Sig: Take 1 tablet by mouth daily at bedtime. gabapentin (NEURONTIN) 300 mg capsule 90 capsule 1 Sig: Take 1 capsule by mouth three times daily for 30 days. Please review and advise. Coby Rice documented in this encounter [facility] 10-13-2022 History of Presen t illness Narrative Patient did not come in for her visit with the provider today. documented in this encounter [facility] 08-13-2022 Instructions Kinsey Levien APRN.CNP - 08/13/2022 3:37 PM EST Marilee Humphries, It was good to talk with you today. Below is a summary of the plan that we discussed during your appointment for reference. Of course, if you have any questions or concerns do not hesitate to reach out to me via a message or call. Best, Kinsey Levine APRN.BARBARA PLAN AND FOLLOW UP: YOU SHOULD SEEK IMMEDIATE MEDICAL ATTENTION AT THE NEAREST EMERGENCY DEPARTMENT OR BY CALLING 911, IF ANY OF THE FOLLOWING OCCURS: - New or worsening thoughts of harming yourself (suicidal thoughts) or others (homicidal thoughts) - Not feeling safe at home or worrying about your ability to remain safe at home If you are having thoughts of harming yourself or others, then you can: - Call the National Suicide Hotline at 1-946-CVVQHKW ( ) or 5-128-588-TALK (0674) - Text 0XVFN to 299469 Medication Update: Gabapentin 300 mg - take 1 capsule three times daily. Continue Zyprexa at the same dose. Utilize Diazepam to help with anxiety and panic symptoms as needed. Lab work: Make sure to complete fasting lab work prior to the next appointment. Other: Schedule an appointment with your primary care provider. Next appointment: --Schedule in 4 to 6 weeks or sooner if needed -- You may call the department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 not included. PSYC FOLLOW UP - PSYCHIATRIC PROGRESS NOTE DIAGNOSIS: 1. Bipolar 2 Disorder 2. Generalized Anxiety Disorder GAF: -60-51 Moderate symptoms or moderate difficulty in social, occupational or school functioning. TREATMENT PLAN: 1. Increase Zyprexa to address her anxiety, racing thoughts, as well as her mood disorder. 2. Add gabapentin to help with her anxiety as well as neuropathy. She experiences tingling and burning which increases her panic symptoms. 3. Continue Effexor at the same dose. 4. Utilize Zofran as needed for nausea. Nausea appears to be a somatic symptom of her worsening anxiety. She denies any other GI symptoms with the nausea. She takes her medications with food. 5. Follow-up with this provider in 10 days. Medication Update: 1. Zyprexa 5 mg - take 1 tablet at bedtime. 2. Gabapentin 300 mg - take 1 capsule twice daily. 3. Zofran 4 mg ODT - Take 1 tablet every 12 hours as needed for nausea. 4. Continue Effexor at the same dose. The effects and side effects of all the medications were reviewed in detail with the patient. She denies any involuntary movement related side effect. She is in agreement with the treatment plan and aware to reach out with any questions, concerns, or worsening of symptoms prior to the next appointment. CC: Follow up regarding mood and anxiety. With the patient consent, visit was performed virtually. HPI: Kristel Chilel is a 36 year old Female with a history of Bipolar disorder and ZAIRE presenting today for follow-up. Date of last visit: 10/16/2021 Plan from last visit: 1. Discontinue Lamictal due to severe nausea related side effects. 2. Discontinue propranolol due to lack of efficacy. 3. Increase Venlafaxine to help with her anxiety concerns. 4. Start Zyprexa to help with her mood fluctuations and sleep difficulties. 5. Follow up in 4 weeks. Today Kristel shares that she continues to struggle with anxiety and sleep difficulties. She has noticed some improvement with her sleep. She continues to attribute it to her back pain and racing thoughts. Has tolerated the Zyprexa without any side effects. She had to go to the hospital due to nerve pain and pinching. They are going to do an MRI of her neck. She is waiting for a surgery date. She has been struggling with increase in panic and anxiety symptoms. Has been able to tolerate the increase in Venlafaxine. She has been struggling with nausea more in the last 2 weeks. She has been using peppermint gum,candy and has tried Tums. She takes all her medications in the last 2 weeks. Kristel has not changed her eating habits. She denies any concerns with constipation currently. Has taken Zofran in the past to manage her nausea. Interval Progress: Slightly improved Risks and benefits of the medication, including any black box warnings, were discussed with the patient. Social History: No change PATIENT DATA: Generalized Anxiety Disorder Scale (ZAIRE-7) ZAIRE - 7 SCORES 07/10/2021 10/15/2021 11/26/2021 ZAIRE-7 Score 6 13 10 (0-4) minimal anxiety, (5-9) mild anxiety, (10-14) moderate anxiety, (15-21) severe anxiety Patient Health Questionnaire (PHQ-9) PHQ-9 07/10/2021 10/15/2021 11/26/2021 Score 12 11 10 (0-4) minimal depression, (5-9) mild depression, (10-14) moderate depression, (15-19) moderately severe depression, (20-27) severe depression ROS: See HPI VITAL SIGNS: None obtained due to virtual visit. BP Temp Pulse Resp SpO2 MENTAL STATUS EXAMINATION: Appearance: Appropriately groomed, appears stated age Behavior: Appropriately engaged Psychomotor: No psychomotor agitation Cognition Level of Consciousness: Awake and alert. No fluctuation in wakefulness. Orientation: Grossly oriented Memory: Intact Attention/Concentration: Good Fund of Knowledge: Able to demonstrate an awareness of current events. Mood: Anxious Affect: Congruent to mood Speech/Language: Appropriate tone, prosody, yamileth, phonetics, and syntax Thought Form: Goal-directed. No loosening of associations. Thought Content: No delusions noted or endorsed. Perceptual Disturbances: Did not appear to respond to auditory stimuli. Safety: Suicidal Ideations: No suicidal ideation, intent or plan. Homicidal Ideations: No homicidal ideation, intent or plan. Insight: Appropriate Judgment: Appropriate I spent a total of 38 minutes on the date of the service which included preparing to see the patient, [id number] patient care, completing clinical documentation, and counseling and educating the patient/family/caregiver, ordering medications/labs. Kinsey Levine APRN.CNP November 27, 2021 11:07 AM documented in this encounter [facility] 10-19-2021 History of Presen t illness Narrative Telemedicine Visit - Distance Health Virtual Visit Note Patient seen on [employer] platform. Location of patient: [place] History of Present Illness Kristel Chilel is a 36 year old year old female who presents for the past 3 days with symptoms that are:stable. Symptoms include: mouth pain Negative for Fever, Chills/Sweats, Cough, Hemoptysis, SOB, QUEEN, Wheezing, Nasal congestion, PND, Rhinorrhea, Face pain/pressure, Headache, Teeth pain , Otalgia, Fatigue, Nausea, Emesis and Diarrhea Oral intake: able to eat and drink, but experiencing mouth pain when eating which lingers for several minutes following eating. Tobacco use: No Second hand smoke exposure: No Recent exposure to strep:No Sick contacts: denies Recent travel: denies OTC meds/remedies that patient has tried: none. Pt denies rash , lesions in mouth , vaginal area, etc. She is on lamictal but is weaning off of the medication. She states shes noticed the mouth pain shortly after she began weaning off of the medication. PAST MEDICAL HISTORY Diagnosis Date Abnormal glandular Papanicolaou smear of cervix 2001 Abn. Pap smear (cervix),ASCUS Anxiety Bulging disc L5 Chlamydia 2001 Galactorrhea not associated with childbirth Goiter 03/04/2015 Headache History of migraine Mastodynia Nerve damage right leg hemorrhage 2001 RECURRENT UTI WITH PREGNANCIES Rh negative state in antepartum period 05/26/2012 Tobacco use disorder PAST SURGICAL HISTORY Procedure Laterality Date D&C, DIAG AND/OR THERAPEUTIC Dilation & curettage ESSURE REMOVE TONSILS/ADENOIDS,<12 Y/O SALPINGECTOMY Bilateral 06/19/15 VAGINAL HYSTERECTOMY 06/19/15 [facility] FAMILY HISTORY Problem Relation Age of Onset Heart Mother Heart Sister has had repair of defect Breast Cancer Maternal Aunt Asthma Mother Hypertension Mother Aneurysm Mother 66 brain Social History Tobacco Use Smoking status: Current Every Day Smoker Packs/day: 1.00 Years: 16.00 Pack years: 16.00 Types: Cigarettes Smokeless tobacco: Never Used Substance Use Topics Alcohol use: Yes Comment: occasionally,NOT WHILE Drug use: No Current Outpatient Medications Medication Sig OLANZapine (ZYPREXA) 2.5 mg tablet Take 1 tablet by mouth daily at bedtime. venlafaxine ER (EFFEXOR XR) 75 mg 24 hr capsule Take 1 capsule by mouth daily with food. albuterol HFA (PROAIR HFA) 90 mcg/actuation inhaler Inhale 1-2 Puffs as instructed every 4 hours as needed. triamcinolone acetonide (NASACORT AQ) 55 mcg nasal inhaler Use 2 Sprays in the nose once daily. SUMAtriptan (IMITREX) 50 mg tablet Take 1 tablet by mouth as needed for Migraine Headache (see administration instructions). No current facility-administered medications for this visit. ALLERGIES Allergen Reactions Cats SNEEZING,WATERY EYES Dog Hair Anaphylaxis SNEEZING, WATERY EYES Sulfa (Sulfonamide * Hives Video Exam (Examination performed via Video enabled technology) General appearance: Alert, oriented, pleasant, in NAD :Yes Ill appearing :No Lethargic appearing :No Eyes: Sclera clear :Yes Conjunctiva without erythema :Yes Ears: Tragus / outer ear tenderness by self palpation :No Oropharynx: normal, no erythema and no lesions, no white patches, no discharge/ exudate. Frontal sinus tenderness by self palpation;No Maxillary sinus tenderness by self palpation :No Tender cervical adenopathy by self palpation :No Respiratory distress :No Coughing noted :No Audible wheezing noted :No Centor Criteria - Age (2-14=+1, 15-44=0, >=45 -1): 0 - Tonsillar exudates: 0 - Tender anterior cervical adenopathy: 0 - Fever by history (>38 or 100.4): 0 ASSESSMENT/PLAN: 1. Mouth pain - ICD9: 528.9, ICD10: K13.79 Ddx for patients symptoms include viral illness, thrush , bacterial infection, reaction to weaning of medication, or SJS. I do not see any evidence or thrush, or lesions to support SJS. Did discuss SJS and specific signs and symptoms for pt to be aware of such as fever, body aches, rash, lesions at or around mucous membranes, lethargy etc. If these symptoms arise or if drooling, voice changes, SOB, difficulty swallow etc then pt needs to go to ED. Diagnosis and treatment plan were discussed and questions were answered to the patient's satisfaction. Pt acknowledged understanding of concepts and follow up plan. Specific signs and symptoms that would indicate the need for higher level of care were discussed in detail warranting prompt ER evaluation. May use warm salt water gargles, chloraseptic lozenges for symptoms Recommended in person care for persistent or worsening symptoms. Marques Ackerman PA-C -Tylenol (generic acetaminophen) 500 mg-2 tabs every 8 hrs. as needed for fever and aches -Sudafed (generic is fine), behind the counter, 2x30 mg tabs twice daily as needed for congestion -Mucinex (generic is fine) 1200 mg twice daily to help with cough and to thin out mucus -http://www.choosingwisely.org/p atient-resources/antibiotics/. This link shares information about when antibiotics may help and when they may not. - Red flags discussed for need for in person care - All questions answered Marques Ackerman PA-C If you let us know who your primary care provider is, we will send them a notification of today s visit through our electronic medical records system. Since not all providers have access to our notifications, we strongly encourage you to share the following record of today s visit with your primary care provider at your next visit. This will help in providing you the best care. If you do not have an established Primary Care physician and would like to continue care with a [facility] Virtual Primary Care physician, please ask your provider to place a Establish Primary Care order. Use [employer] to manage your care, wherever you are, 10/01, on your mobile device or computer. [employer] connects you to [employer] so you can access all your health information in one place and also schedule and request virtual appointments with primary care providers. documented in this encounter [facility] 10-19-2021 History of Presen t illness Narrative Pt exited virtual waiting room while provider performing chart review. Pt left without being seen. Coby Narvaez APRN.RESEARCH CHEMICAL ENGINEER documented in this encounter [facility] 03-29-2013 History of Past i llness Narrative Problem Noted Date Resolved Date IUD (intrauterine device) in place 03/29/2013 08/23/2017 Supervision of high-risk 06/06/2012 02/22/2013 Overview: 06/06/12 - RA done v23 - KK Rh negative state in antepartum period 2 02/22/2013 Prior complicated by IUGR, antepartum 05/25/2012 02/22/2013 Overview: 06/06/12 - plan for 3rd trimester growth ultrasounds - KK 05/25/2012 She has a history of IUGR with her last . History of recurrent UTI (urinary tract infectio n) 05/25/2012 06/06/2012 Overview: 05/25/2012Pt has a history of recurrent UTI during her pregnancies. Discussed importance of reporting the onset of any symptoms of a UTI should it occur during . History of hemorrhage, currently preg nant 05/25/2012 02/22/2013 Overview: 05/25/2012She has a history of hemorrhage with her first delivery. History of depression 05/25/2012 02/22/2013 Overview: 06/06/12 - doing well, no meds - KK 05/25/2012Pt has a history of depression since age 16 that has been treated in the past by Dr. Deras and Chava Wray. She has been off medication for 2 years. She believes she is doing well off medication. She denies any depression symptoms now. Discussed increased risks of depression during and and importance of reporting the development or worsening of symptoms should they occur. Pt denies ever having any suicidal thoughts or tendencies or thoughts of hurting others. History of asthma 05/25/2012 02/22/2013 Overview: 05/25/2012Pt has a history of childhood asthma. She denies any asthma attacks since age 13. Nausea and vomiting in 05/25/2012 02/22/2013 Overview: 05/25/2012Patient complaining of nausea and vomiting in . She states she is able to keep most of her food and fluids down. Discussed nausea and vomiting in . Patient is advised to call/come in if she is unable to keep any food or fluids down in a 24-hour period. A prescription for Phenergan was given by Dr. Mckeon. Last Assessment & Plan: 07/04/2012 States ongoing Nausea and Vomiting mostly in the morning and until around noon. She continues to use Zofran as needed for this. We discussed her eating a protein snack prior to going to bed and keeping crackers bedside to snack on if she wakes up in the middle of the night. Also, recommended peppermint candies. Daisy Morales CNP Immunization due 05/25/2012 02/22/2013 Overview: 05/25/2012 patient states her tetanus vaccine is not up-to-date Other acne 06/30/2010 06/06/2012 Folliculitis 06/30/2010 06/06/2012 Pruritus 06/30/2010 06/06/2012 Eczematous dermatitis 06/30/2010 06/06/2012 Acne Urticata 06/30/2010 06/06/2012 Routine general medical exam ination at a health care facility 02/19/2010 06/06/2012 Overview: 02/19/2010, from Dr. Deras Routine gynecological examination 02/19/2010 06/06/2012 Overview: [facility] [place] DEPRESSION 10/28/2009 06/06/2012 Poor growth, affecting management of mother, antepartum condition or complication 08/20/2009 10/10/2009 Galactorrhea not associated with childbirth 11/1810/10/2009 Mastodynia 11/29/2008 10/10/2009 Tobacco use disorder 08/06/2008 06/06/2012 documented as of this encounter (statuses as of 10/19/2021) [facility] History of Past illness Narrative* Problem Noted Date Resolved Date IUD (intrauterine device) in place 03/29/2013 08/23/2017 Supervision of high-risk 06/06/2012 02/22/2013 Overview: 06/06/12 - RA done v23 - KK Rh negative state in antepartum period 2 02/22/2013 Prior complicated by IUGR, antepartum 05/25/2012 02/22/2013 Overview: 06/06/12 - plan for 3rd trimester growth ultrasounds - KK 05/25/2012 She has a history of IUGR with her last . History of recurrent UTI (urinary tract infectio n) 05/25/2012 06/06/2012 Overview: 05/25/2012Pt has a history of recurrent UTI during her pregnancies. Discussed importance of reporting the onset of any symptoms of a UTI should it occur during . History of hemorrhage, currently preg nant 05/25/2012 02/22/2013 Overview: 05/25/2012She has a history of hemorrhage with her first delivery. History of depression 05/25/2012 02/22/2013 Overview: 06/06/12 - doing well, no meds - KK 05/25/2012Pt has a history of depression since age 16 that has been treated in the past by Dr. Deras and Chava Wray. She has been off medication for 2 years. She believes she is doing well off medication. She denies any depression symptoms now. Discussed increased risks of depression during and and importance of reporting the development or worsening of symptoms should they occur. Pt denies ever having any suicidal thoughts or tendencies or thoughts of hurting others. History of asthma 05/25/2012 02/22/2013 Overview: 05/25/2012Pt has a history of childhood asthma. She denies any asthma attacks since age 13. Nausea and vomiting in 05/25/2012 02/22/2013 Overview: 05/25/2012Patient complaining of nausea and vomiting in . She states she is able to keep most of her food and fluids down. Discussed nausea and vomiting in . Patient is advised to call/come in if she is unable to keep any food or fluids down in a 24-hour period. A prescription for Phenergan was given by Dr. Mckeon. Last Assessment & Plan: 07/04/2012 States ongoing Nausea and Vomiting mostly in the morning and until around noon. She continues to use Zofran as needed for this. We discussed her eating a protein snack prior to going to bed and keeping crackers bedside to snack on if she wakes up in the middle of the night. Also, recommended peppermint candies. Daisy Morales CNP Immunization due 05/25/2012 02/22/2013 Overview: 05/25/2012 patient states her tetanus vaccine is not up-to-date Other acne 06/30/2010 06/06/2012 Folliculitis 06/30/2010 06/06/2012 Pruritus 06/30/2010 06/06/2012 Eczematous dermatitis 06/30/2010 06/06/2012 Acne Urticata 06/30/2010 06/06/2012 Routine general medical exam ination at a health care facility 02/19/2010 06/06/2012 Overview: 02/19/2010, from Dr. Deras Routine gynecological examination 02/19/2010 06/06/2012 Overview: [facility] [place] DEPRESSION 10/28/2009 06/06/2012 Poor growth, affecting management of mother, antepartum condition or complication 08/20/2009 10/10/2009 Galactorrhea not associated with childbirth 11/1810/10/2009 Mastodynia 11/29/2008 10/10/2009 Tobacco use disorder 08/06/2008 06/06/2012 documented as of this encounter (statuses as of 11/30/2021) [facility] History of Past illness Narrative* Problem Noted Date Resolved Date IUD (intrauterine device) in place 03/29/2013 08/23/2017 Supervision of high-risk 06/06/2012 02/22/2013 Overview: 06/06/12 - RA done v23 - KK Rh negative state in antepartum period 2 02/22/2013 Prior complicated by IUGR, antepartum 05/25/2012 02/22/2013 Overview: 06/06/12 - plan for 3rd trimester growth ultrasounds - KK 05/25/2012 She has a history of IUGR with her last . History of recurrent UTI (urinary tract infectio n) 05/25/2012 06/06/2012 Overview: 05/25/2012Pt has a history of recurrent UTI during her pregnancies. Discussed importance of reporting the onset of any symptoms of a UTI should it occur during . History of hemorrhage, currently preg nant 05/25/2012 02/22/2013 Overview: 05/25/2012She has a history of hemorrhage with her first delivery. History of depression 05/25/2012 02/22/2013 Overview: 06/06/12 - doing well, no meds - KK 05/25/2012Pt has a history of depression since age 16 that has been treated in the past by Dr. Deras and Chava Wray. She has been off medication for 2 years. She believes she is doing well off medication. She denies any depression symptoms now. Discussed increased risks of depression during and and importance of reporting the development or worsening of symptoms should they occur. Pt denies ever having any suicidal thoughts or tendencies or thoughts of hurting others. History of asthma 05/25/2012 02/22/2013 Overview: 05/25/2012Pt has a history of childhood asthma. She denies any asthma attacks since age 13. Nausea and vomiting in 05/25/2012 02/22/2013 Overview: 05/25/2012Patient complaining of nausea and vomiting in . She states she is able to keep most of her food and fluids down. Discussed nausea and vomiting in . Patient is advised to call/come in if she is unable to keep any food or fluids down in a 24-hour period. A prescription for Phenergan was given by Dr. Mckeon. Last Assessment & Plan: 07/04/2012 States ongoing Nausea and Vomiting mostly in the morning and until around noon. She continues to use Zofran as needed for this. We discussed her eating a protein snack prior to going to bed and keeping crackers bedside to snack on if she wakes up in the middle of the night. Also, recommended peppermint candies. Daisy Morales CNP Immunization due 05/25/2012 02/22/2013 Overview: 05/25/2012 patient states her tetanus vaccine is not up-to-date Other acne 06/30/2010 06/06/2012 Folliculitis 06/30/2010 06/06/2012 Pruritus 06/30/2010 06/06/2012 Eczematous dermatitis 06/30/2010 06/06/2012 Acne Urticata 06/30/2010 06/06/2012 Routine general medical exam ination at a health care facility 02/19/2010 06/06/2012 Overview: 02/19/2010, from Dr. Deras Routine gynecological examination 02/19/2010 06/06/2012 Overview: [facility] [place] DEPRESSION 10/28/2009 06/06/2012 Poor growth, affecting management of mother, antepartum condition or complication 08/20/2009 10/10/2009 Galactorrhea not associated with childbirth 11/1810/10/2009 Mastodynia 11/29/2008 10/10/2009 Tobacco use disorder 08/06/2008 06/06/2012 documented as of this encounter (statuses as of 12/07/2021) [facility] History of Past illness Narrative* Problem Noted Date Resolved Date IUD (intrauterine device) in place 03/29/2013 08/23/2017 Supervision of high-risk 06/06/2012 02/22/2013 Overview: 06/06/12 - RA done v23 - KK Rh negative state in antepartum period 2 02/22/2013 Prior complicated by IUGR, antepartum 05/25/2012 02/22/2013 Overview: 06/06/12 - plan for 3rd trimester growth ultrasounds - KK 05/25/2012 She has a history of IUGR with her last . History of recurrent UTI (urinary tract infectio n) 05/25/2012 06/06/2012 Overview: 05/25/2012Pt has a history of recurrent UTI during her pregnancies. Discussed importance of reporting the onset of any symptoms of a UTI should it occur during . History of hemorrhage, currently preg nant 05/25/2012 02/22/2013 Overview: 05/25/2012She has a history of hemorrhage with her first delivery. History of depression 05/25/2012 02/22/2013 Overview: 06/06/12 - doing well, no meds - KK 05/25/2012Pt has a history of depression since age 16 that has been treated in the past by Dr. Deras and Chava Wray. She has been off medication for 2 years. She believes she is doing well off medication. She denies any depression symptoms now. Discussed increased risks of depression during and and importance of reporting the development or worsening of symptoms should they occur. Pt denies ever having any suicidal thoughts or tendencies or thoughts of hurting others. History of asthma 05/25/2012 02/22/2013 Overview: 05/25/2012Pt has a history of childhood asthma. She denies any asthma attacks since age 13. Nausea and vomiting in 05/25/2012 02/22/2013 Overview: 05/25/2012Patient complaining of nausea and vomiting in . She states she is able to keep most of her food and fluids down. Discussed nausea and vomiting in . Patient is advised to call/come in if she is unable to keep any food or fluids down in a 24-hour period. A prescription for Phenergan was given by Dr. Mckeon. Last Assessment & Plan: 07/04/2012 States ongoing Nausea and Vomiting mostly in the morning and until around noon. She continues to use Zofran as needed for this. We discussed her eating a protein snack prior to going to bed and keeping crackers bedside to snack on if she wakes up in the middle of the night. Also, recommended peppermint candies. Daisy Morales CNP Immunization due 05/25/2012 02/22/2013 Overview: 05/25/2012 patient states her tetanus vaccine is not up-to-date Other acne 06/30/2010 06/06/2012 Folliculitis 06/30/2010 06/06/2012 Pruritus 06/30/2010 06/06/2012 Eczematous dermatitis 06/30/2010 06/06/2012 Acne Urticata 06/30/2010 06/06/2012 Routine general medical exam ination at a health care facility 02/19/2010 06/06/2012 Overview: 02/19/2010, from Dr. Deras Routine gynecological examination 02/19/2010 06/06/2012 Overview: [facility] [place] DEPRESSION 10/28/2009 06/06/2012 Poor growth, affecting management of mother, antepartum condition or complication 08/20/2009 10/10/2009 Galactorrhea not associated with childbirth 11/1810/10/2009 Mastodynia 11/29/2008 10/10/2009 Tobacco use disorder 08/06/2008 06/06/2012 documented as of this encounter (statuses as of 03/26/2022) [facility] History of Past illness Narrative* Problem Noted Date Resolved Date IUD (intrauterine device) in place 03/29/2013 08/23/2017 Supervision of high-risk 06/06/2012 02/22/2013 Overview: 06/06/12 - RA done v23 - KK Rh negative state in antepartum period 2 02/22/2013 Prior complicated by IUGR, antepartum 05/25/2012 02/22/2013 Overview: 06/06/12 - plan for 3rd trimester growth ultrasounds - KK 05/25/2012 She has a history of IUGR with her last . History of recurrent UTI (urinary tract infectio n) 05/25/2012 06/06/2012 Overview: 05/25/2012Pt has a history of recurrent UTI during her pregnancies. Discussed importance of reporting the onset of any symptoms of a UTI should it occur during . History of hemorrhage, currently preg nant 05/25/2012 02/22/2013 Overview: 05/25/2012She has a history of hemorrhage with her first delivery. History of depression 05/25/2012 02/22/2013 Overview: 06/06/12 - doing well, no meds - KK 05/25/2012Pt has a history of depression since age 16 that has been treated in the past by Dr. Deras and Chava Wray. She has been off medication for 2 years. She believes she is doing well off medication. She denies any depression symptoms now. Discussed increased risks of depression during and and importance of reporting the development or worsening of symptoms should they occur. Pt denies ever having any suicidal thoughts or tendencies or thoughts of hurting others. History of asthma 05/25/2012 02/22/2013 Overview: 05/25/2012Pt has a history of childhood asthma. She denies any asthma attacks since age 13. Nausea and vomiting in 05/25/2012 02/22/2013 Overview: 05/25/2012Patient complaining of nausea and vomiting in . She states she is able to keep most of her food and fluids down. Discussed nausea and vomiting in . Patient is advised to call/come in if she is unable to keep any food or fluids down in a 24-hour period. A prescription for Phenergan was given by Dr. Mckeon. Last Assessment & Plan: 07/04/2012 States ongoing Nausea and Vomiting mostly in the morning and until around noon. She continues to use Zofran as needed for this. We discussed her eating a protein snack prior to going to bed and keeping crackers bedside to snack on if she wakes up in the middle of the night. Also, recommended peppermint candies. Daisy Morales CNP Immunization due 05/25/2012 02/22/2013 Overview: 05/25/2012 patient states her tetanus vaccine is not up-to-date Other acne 06/30/2010 06/06/2012 Folliculitis 06/30/2010 06/06/2012 Pruritus 06/30/2010 06/06/2012 Eczematous dermatitis 06/30/2010 06/06/2012 Acne Urticata 06/30/2010 06/06/2012 Routine general medical exam ination at a health care facility 02/19/2010 06/06/2012 Overview: 02/19/2010, from Dr. Deras Routine gynecological examination 02/19/2010 06/06/2012 Overview: [facility] [place] DEPRESSION 10/28/2009 06/06/2012 Poor growth, affecting management of mother, antepartum condition or complication 08/20/2009 10/10/2009 Galactorrhea not associated with childbirth 11/1810/10/2009 Mastodynia 11/29/2008 10/10/2009 Tobacco use disorder 08/06/2008 06/06/2012 documented as of this encounter (statuses as of 05/05/2022) [facility] History of Past illness Narrative* Problem Noted Date Resolved Date IUD (intrauterine device) in place 03/29/2013 08/23/2017 Supervision of high-risk 06/06/2012 02/22/2013 Overview: 06/06/12 - RA done v23 - KK Rh negative state in antepartum period 2 02/22/2013 Prior complicated by IUGR, antepartum 05/25/2012 02/22/2013 Overview: 06/06/12 - plan for 3rd trimester growth ultrasounds - KK 05/25/2012 She has a history of IUGR with her last . History of recurrent UTI (urinary tract infectio n) 05/25/2012 06/06/2012 Overview: 05/25/2012Pt has a history of recurrent UTI during her pregnancies. Discussed importance of reporting the onset of any symptoms of a UTI should it occur during . History of hemorrhage, currently preg nant 05/25/2012 02/22/2013 Overview: 05/25/2012She has a history of hemorrhage with her first delivery. History of depression 05/25/2012 02/22/2013 Overview: 06/06/12 - doing well, no meds - KK 05/25/2012Pt has a history of depression since age 16 that has been treated in the past by Dr. Dears and Chava Wray. She has been off medication for 2 years. She believes she is doing well off medication. She denies any depression symptoms now. Discussed increased risks of depression during and and importance of reporting the development or worsening of symptoms should they occur. Pt denies ever having any suicidal thoughts or tendencies or thoughts of hurting others. History of asthma 05/25/2012 02/22/2013 Overview: 05/25/2012Pt has a history of childhood asthma. She denies any asthma attacks since age 13. Nausea and vomiting in 05/25/2012 02/22/2013 Overview: 05/25/2012Patient complaining of nausea and vomiting in . She states she is able to keep most of her food and fluids down. Discussed nausea and vomiting in . Patient is advised to call/come in if she is unable to keep any food or fluids down in a 24-hour period. A prescription for Phenergan was given by Dr. Mckeon. Last Assessment & Plan: 07/04/2012 States ongoing Nausea and Vomiting mostly in the morning and until around noon. She continues to use Zofran as needed for this. We discussed her eating a protein snack prior to going to bed and keeping crackers bedside to snack on if she wakes up in the middle of the night. Also, recommended peppermint candies. Daisy Morales CNP Immunization due 05/25/2012 02/22/2013 Overview: 05/25/2012 patient states her tetanus vaccine is not up-to-date Other acne 06/30/2010 06/06/2012 Folliculitis 06/30/2010 06/06/2012 Pruritus 06/30/2010 06/06/2012 Eczematous dermatitis 06/30/2010 06/06/2012 Acne Urticata 06/30/2010 06/06/2012 Routine general medical exam ination at a health care facility 02/19/2010 06/06/2012 Overview: 02/19/2010, from Dr. Deras Routine gynecological examination 02/19/2010 06/06/2012 Overview: [facility] [place] DEPRESSION 10/28/2009 06/06/2012 Poor growth, affecting management of mother, antepartum condition or complication 08/20/2009 10/10/2009 Galactorrhea not associated with childbirth 11/1810/10/2009 Mastodynia 11/29/2008 10/10/2009 Tobacco use disorder 08/06/2008 06/06/2012 documented as of this encounter (statuses as of 07/06/2022) [facility] History of Past illness Narrative* Problem Noted Date Resolved Date IUD (intrauterine device) in place 03/29/2013 08/23/2017 Supervision of high-risk 06/06/2012 02/22/2013 Overview: 06/06/12 - RA done v23 - KK Rh negative state in antepartum period 2 02/22/2013 Prior complicated by IUGR, antepartum 05/25/2012 02/22/2013 Overview: 06/06/12 - plan for 3rd trimester growth ultrasounds - KK 05/25/2012 She has a history of IUGR with her last . History of recurrent UTI (urinary tract infectio n) 05/25/2012 06/06/2012 Overview: 05/25/2012Pt has a history of recurrent UTI during her pregnancies. Discussed importance of reporting the onset of any symptoms of a UTI should it occur during . History of hemorrhage, currently preg nant 05/25/2012 02/22/2013 Overview: 05/25/2012She has a history of hemorrhage with her first delivery. History of depression 05/25/2012 02/22/2013 Overview: 06/06/12 - doing well, no meds - KK 05/25/2012Pt has a history of depression since age 16 that has been treated in the past by Dr. Deras and Chava Wray. She has been off medication for 2 years. She believes she is doing well off medication. She denies any depression symptoms now. Discussed increased risks of depression during and and importance of reporting the development or worsening of symptoms should they occur. Pt denies ever having any suicidal thoughts or tendencies or thoughts of hurting others. History of asthma 05/25/2012 02/22/2013 Overview: 05/25/2012Pt has a history of childhood asthma. She denies any asthma attacks since age 13. Nausea and vomiting in 05/25/2012 02/22/2013 Overview: 05/25/2012Patient complaining of nausea and vomiting in . She states she is able to keep most of her food and fluids down. Discussed nausea and vomiting in . Patient is advised to call/come in if she is unable to keep any food or fluids down in a 24-hour period. A prescription for Phenergan was given by Dr. Mckeon. Last Assessment & Plan: 07/04/2012 States ongoing Nausea and Vomiting mostly in the morning and until around noon. She continues to use Zofran as needed for this. We discussed her eating a protein snack prior to going to bed and keeping crackers bedside to snack on if she wakes up in the middle of the night. Also, recommended peppermint candies. Daisy Morales CNP Immunization due 05/25/2012 02/22/2013 Overview: 05/25/2012 patient states her tetanus vaccine is not up-to-date Other acne 06/30/2010 06/06/2012 Folliculitis 06/30/2010 06/06/2012 Pruritus 06/30/2010 06/06/2012 Eczematous dermatitis 06/30/2010 06/06/2012 Acne Urticata 06/30/2010 06/06/2012 Routine general medical exam ination at a health care facility 02/19/2010 06/06/2012 Overview: 02/19/2010, from Dr. Deras Routine gynecological examination 02/19/2010 06/06/2012 Overview: [facility] [place] DEPRESSION 10/28/2009 06/06/2012 Poor growth, affecting management of mother, antepartum condition or complication 08/20/2009 10/10/2009 Galactorrhea not associated with childbirth 11/1810/10/2009 Mastodynia 11/29/2008 10/10/2009 Tobacco use disorder 08/06/2008 06/06/2012 documented as of this encounter (statuses as of 07/21/2022) [facility] History of Past illness Narrative* Problem Noted Date Resolved Date IUD (intrauterine device) in place 03/29/2013 08/23/2017 Supervision of high-risk 06/06/2012 02/22/2013 Overview: 06/06/12 - RA done v23 - KK Rh negative state in antepartum period 2 02/22/2013 Prior complicated by IUGR, antepartum 05/25/2012 02/22/2013 Overview: 06/06/12 - plan for 3rd trimester growth ultrasounds - KK 05/25/2012 She has a history of IUGR with her last . History of recurrent UTI (urinary tract infectio n) 05/25/2012 06/06/2012 Overview: 05/25/2012Pt has a history of recurrent UTI during her pregnancies. Discussed importance of reporting the onset of any symptoms of a UTI should it occur during . History of hemorrhage, currently preg nant 05/25/2012 02/22/2013 Overview: 05/25/2012She has a history of hemorrhage with her first delivery. History of depression 05/25/2012 02/22/2013 Overview: 06/06/12 - doing well, no meds - KK 05/25/2012Pt has a history of depression since age 16 that has been treated in the past by Dr. Deras and Chava Wray. She has been off medication for 2 years. She believes she is doing well off medication. She denies any depression symptoms now. Discussed increased risks of depression during and and importance of reporting the development or worsening of symptoms should they occur. Pt denies ever having any suicidal thoughts or tendencies or thoughts of hurting others. History of asthma 05/25/2012 02/22/2013 Overview: 05/25/2012Pt has a history of childhood asthma. She denies any asthma attacks since age 13. Nausea and vomiting in 05/25/2012 02/22/2013 Overview: 05/25/2012Patient complaining of nausea and vomiting in . She states she is able to keep most of her food and fluids down. Discussed nausea and vomiting in . Patient is advised to call/come in if she is unable to keep any food or fluids down in a 24-hour period. A prescription for Phenergan was given by Dr. Mckeon. Last Assessment & Plan: 07/04/2012 States ongoing Nausea and Vomiting mostly in the morning and until around noon. She continues to use Zofran as needed for this. We discussed her eating a protein snack prior to going to bed and keeping crackers bedside to snack on if she wakes up in the middle of the night. Also, recommended peppermint candies. Daisy Morales CNP Immunization due 05/25/2012 02/22/2013 Overview: 05/25/2012 patient states her tetanus vaccine is not up-to-date Other acne 06/30/2010 06/06/2012 Folliculitis 06/30/2010 06/06/2012 Pruritus 06/30/2010 06/06/2012 Eczematous dermatitis 06/30/2010 06/06/2012 Acne Urticata 06/30/2010 06/06/2012 Routine general medical exam ination at a health care facility 02/19/2010 06/06/2012 Overview: 02/19/2010, from Dr. Deras Routine gynecological examination 02/19/2010 06/06/2012 Overview: [facility], [facility] [place] DEPRESSION 10/28/2009 06/06/2012 Poor growth, affecting management of mother, antepartum condition or complication 08/20/2009 10/10/2009 Galactorrhea not associated with childbirth 11/1810/10/2009 Mastodynia 11/29/2008 10/10/2009 Tobacco use disorder 08/06/2008 06/06/2012 documented as of this encounter (statuses as of 08/13/2022) [facility] History of Past illness Narrative* Problem Noted Date Resolved Date IUD (intrauterine device) in place 03/29/2013 08/23/2017 Supervision of high-risk 06/06/2012 02/22/2013 Overview: 06/06/12 - RA done v23 - KK Rh negative state in antepartum period 2 02/22/2013 Prior complicated by IUGR, antepartum 05/25/2012 02/22/2013 Overview: 06/06/12 - plan for 3rd trimester growth ultrasounds - KK 05/25/2012 She has a history of IUGR with her last . History of recurrent UTI (urinary tract infectio n) 05/25/2012 06/06/2012 Overview: 05/25/2012Pt has a history of recurrent UTI during her pregnancies. Discussed importance of reporting the onset of any symptoms of a UTI should it occur during . History of hemorrhage, currently preg nant 05/25/2012 02/22/2013 Overview: 05/25/2012She has a history of hemorrhage with her first delivery. History of depression 05/25/2012 02/22/2013 Overview: 06/06/12 - doing well, no meds - KK 05/25/2012Pt has a history of depression since age 16 that has been treated in the past by Dr. Deras and Chava Wray. She has been off medication for 2 years. She believes she is doing well off medication. She denies any depression symptoms now. Discussed increased risks of depression during and and importance of reporting the development or worsening of symptoms should they occur. Pt denies ever having any suicidal thoughts or tendencies or thoughts of hurting others. History of asthma 05/25/2012 02/22/2013 Overview: 05/25/2012Pt has a history of childhood asthma. She denies any asthma attacks since age 13. Nausea and vomiting in 05/25/2012 02/22/2013 Overview: 05/25/2012Patient complaining of nausea and vomiting in . She states she is able to keep most of her food and fluids down. Discussed nausea and vomiting in . Patient is advised to call/come in if she is unable to keep any food or fluids down in a 24-hour period. A prescription for Phenergan was given by Dr. Mckeon. Last Assessment & Plan: 07/04/2012 States ongoing Nausea and Vomiting mostly in the morning and until around noon. She continues to use Zofran as needed for this. We discussed her eating a protein snack prior to going to bed and keeping crackers bedside to snack on if she wakes up in the middle of the night. Also, recommended peppermint candies. Daisy Morales CNP Immunization due 05/25/2012 02/22/2013 Overview: 05/25/2012 patient states her tetanus vaccine is not up-to-date Other acne 06/30/2010 06/06/2012 Folliculitis 06/30/2010 06/06/2012 Pruritus 06/30/2010 06/06/2012 Eczematous dermatitis 06/30/2010 06/06/2012 Acne Urticata 06/30/2010 06/06/2012 Routine general medical exam ination at a health care facility 02/19/2010 06/06/2012 Overview: 02/19/2010, from Dr. Deras Routine gynecological examination 02/19/2010 06/06/2012 Overview: [facility], [facility] [place] DEPRESSION 10/28/2009 06/06/2012 Poor growth, affecting management of mother, antepartum condition or complication 08/20/2009 10/10/2009 Galactorrhea not associated with childbirth 11/1810/10/2009 Mastodynia 11/29/2008 10/10/2009 Tobacco use disorder 08/06/2008 06/06/2012 documented as of this encounter (statuses as of 10/13/2022) [facility] History of Past illness Narrative* Problem Noted Date Resolved Date IUD (intrauterine device) in place 03/29/2013 08/23/2017 Supervision of high-risk 06/06/2012 02/22/2013 Overview: 06/06/12 - RA done v23 - KK Rh negative state in antepartum period 2 02/22/2013 Prior complicated by IUGR, antepartum 05/25/2012 02/22/2013 Overview: 06/06/12 - plan for 3rd trimester growth ultrasounds - KK 05/25/2012 She has a history of IUGR with her last . History of recurrent UTI (urinary tract infectio n) 05/25/2012 06/06/2012 Overview: 05/25/2012Pt has a history of recurrent UTI during her pregnancies. Discussed importance of reporting the onset of any symptoms of a UTI should it occur during . History of hemorrhage, currently preg nant 05/25/2012 02/22/2013 Overview: 05/25/2012She has a history of hemorrhage with her first delivery. History of depression 05/25/2012 02/22/2013 Overview: 06/06/12 - doing well, no meds - KK 05/25/2012Pt has a history of depression since age 16 that has been treated in the past by Dr. Deras and Chava Wray. She has been off medication for 2 years. She believes she is doing well off medication. She denies any depression symptoms now. Discussed increased risks of depression during and and importance of reporting the development or worsening of symptoms should they occur. Pt denies ever having any suicidal thoughts or tendencies or thoughts of hurting others. History of asthma 05/25/2012 02/22/2013 Overview: 05/25/2012Pt has a history of childhood asthma. She denies any asthma attacks since age 13. Nausea and vomiting in 05/25/2012 02/22/2013 Overview: 05/25/2012Patient complaining of nausea and vomiting in . She states she is able to keep most of her food and fluids down. Discussed nausea and vomiting in . Patient is advised to call/come in if she is unable to keep any food or fluids down in a 24-hour period. A prescription for Phenergan was given by Dr. Mckeon. Last Assessment & Plan: 07/04/2012 States ongoing Nausea and Vomiting mostly in the morning and until around noon. She continues to use Zofran as needed for this. We discussed her eating a protein snack prior to going to bed and keeping crackers bedside to snack on if she wakes up in the middle of the night. Also, recommended peppermint candies. Daisy Morales CNP Immunization due 05/25/2012 02/22/2013 Overview: 05/25/2012 patient states her tetanus vaccine is not up-to-date Other acne 06/30/2010 06/06/2012 Folliculitis 06/30/2010 06/06/2012 Pruritus 06/30/2010 06/06/2012 Eczematous dermatitis 06/30/2010 06/06/2012 Acne Urticata 06/30/2010 06/06/2012 Routine general medical exam ination at a health care facility 02/19/2010 06/06/2012 Overview: 02/19/2010, from Dr. Deras Routine gynecological examination 02/19/2010 06/06/2012 Overview: [facility], [facility] [place] DEPRESSION 10/28/2009 06/06/2012 Poor growth, affecting management of mother, antepartum condition or complication 08/20/2009 10/10/2009 Galactorrhea not associated with childbirth 11/1810/10/2009 Mastodynia 11/29/2008 10/10/2009 Tobacco use disorder 08/06/2008 06/06/2012 documented as of this encounter (statuses as of 10/15/2022) [facility] History of Past illness Narrative* Problem Noted Date Diagnosed Date Resolved Date IUD (intrauterine device) in place 03/29/2013 08/23/2017 Supervision of high-risk 06/06/2012 02/22/2013 Overview: 06/06/12 - RA done v23 - KK Rh negative state in antepartum period 05/26/2012 02/22/2013 Prior complicated by IUGR, antepartum 05/25/2012 02/22/2013 Overview: 06/06/12 - plan for 3rd trimester growth ultrasounds - KK 05/25/2012 She has a history of IUGR with her last . History of recurrent UTI (ur inary tract infection) 05/25/2012 06/06/2012 Overview: 05/25/2012Pt has a history of recurrent UTI during her pregnancies. Discussed importance of reporting the onset of any symptoms of a UTI should it occur during . History of hemorr casey, currently 05/25/2012 02/22/2013 Overview: 05/25/2012She has a history of hemorrhage with her first delivery. History of depression 05/25/20122012 Overview: 06/06/12 - doing well, no meds - KK 05/25/2012Pt has a history of depression since age 16 that has been treated in the past by Dr. Deras and Chava Wray. She has been off medication for 2 years. She believes she is doing well off medication. She denies any depression symptoms now. Discussed increased risks of depression during and and importance of reporting the development or worsening of symptoms should they occur. Pt denies ever having any suicidal thoughts or tendencies or thoughts of hurting others. History of asthma 05/25/2012 02/22/2013 Overview: 05/25/2012Pt has a history of childhood asthma. She denies any asthma attacks since age 13. Nausea and vomiting in 05/25/2012 02/22/2013 Overview: 05/25/2012Patient complaining of nausea and vomiting in . She states she is able to keep most of her food and fluids down. Discussed nausea and vomiting in . Patient is advised to call/come in if she is unable to keep any food or fluids down in a 24-hour period. A prescription for Phenergan was given by Dr. Mckeon. Last Assessment & Plan: 07/04/2012 States ongoing Nausea and Vomiting mostly in the morning and until around noon. She continues to use Zofran as needed for this. We discussed her eating a protein snack prior to going to bed and keeping crackers bedside to snack on if she wakes up in the middle of the night. Also, recommended peppermint candies. Daisy Morales CNP Immunization due 05/25/2012 02/22/2013 Overview: 05/25/2012 patient states her tetanus vaccine is not up-to-date Other acne 06/30/2010 06/06/2012 Folliculitis 06/30/2010 06/06/2012 Pruritus 06/30/2010 06/06/2012 Eczematous dermatitis 06/30/20102011 Acne Urticata 06/30/2010 06/06/2012 Routine general medical exam ination at a health care facility 02/19/2010 06/06/2012 Overview: 02/19/2010, from Dr. Deras Routine gynecological examination 02/19/2010 06/06/2012 Overview: [facility], [facility] [place] DEPRESSION 10/28/2009 06/06/2012 Poor growth, affecting management of mother, antepartum condition or complication 08/20/2009 10/10/2009 Galactorrhea not associated with childbirth 11/29/2008 10/10/2009 Mastodynia 11/29/2008 10/10/2009 Tobacco use disorder 08/06/2008 012 documented as of this encounter (statuses as of 03/04/2023) [facility] History of Past illness Narrative* Problem Noted Date Diagnosed Date Resolved Date IUD (intrauterine device) in place 03/29/2013 08/23/2017 Supervision of high-risk 06/06/2012 02/22/2013 Overview: 06/06/12 - RA done v23 - KK Rh negative state in antepartum period 05/26/2012 02/22/2013 Prior complicated by IUGR, antepartum 05/25/2012 02/22/2013 Overview: 06/06/12 - plan for 3rd trimester growth ultrasounds - KK 05/25/2012 She has a history of IUGR with her last . History of recurrent UTI (ur inary tract infection) 05/25/2012 06/06/2012 Overview: 05/25/2012Pt has a history of recurrent UTI during her pregnancies. Discussed importance of reporting the onset of any symptoms of a UTI should it occur during . History of hemorr casey, currently 05/25/2012 02/22/2013 Overview: 05/25/2012She has a history of hemorrhage with her first delivery. History of depression 05/25/20122012 Overview: 06/06/12 - doing well, no meds - KK 05/25/2012Pt has a history of depression since age 16 that has been treated in the past by Dr. Deras and Chava Wray. She has been off medication for 2 years. She believes she is doing well off medication. She denies any depression symptoms now. Discussed increased risks of depression during and and importance of reporting the development or worsening of symptoms should they occur. Pt denies ever having any suicidal thoughts or tendencies or thoughts of hurting others. History of asthma 05/25/2012 02/22/2013 Overview: 05/25/2012Pt has a history of childhood asthma. She denies any asthma attacks since age 13. Nausea and vomiting in 05/25/2012 02/22/2013 Overview: 05/25/2012Patient complaining of nausea and vomiting in . She states she is able to keep most of her food and fluids down. Discussed nausea and vomiting in . Patient is advised to call/come in if she is unable to keep any food or fluids down in a 24-hour period. A prescription for Phenergan was given by Dr. Mckeon. Last Assessment & Plan: 07/04/2012 States ongoing Nausea and Vomiting mostly in the morning and until around noon. She continues to use Zofran as needed for this. We discussed her eating a protein snack prior to going to bed and keeping crackers bedside to snack on if she wakes up in the middle of the night. Also, recommended peppermint candies. Daisy Morales CNP Immunization due 05/25/2012 02/22/2013 Overview: 05/25/2012 patient states her tetanus vaccine is not up-to-date Other acne 06/30/2010 06/06/2012 Folliculitis 06/30/2010 06/06/2012 Pruritus 06/30/2010 06/06/2012 Eczematous dermatitis 06/30/20102011 Acne Urticata 06/30/2010 06/06/2012 Routine general medical exam ination at a health care facility 02/19/2010 06/06/2012 Overview: 02/19/2010, from Dr. Deras Routine gynecological examination 02/19/2010 06/06/2012 Overview: [facility] [place] DEPRESSION 10/28/2009 06/06/2012 Poor growth, affecting management of mother, antepartum condition or complication 08/20/2009 10/10/2009 Galactorrhea not associated with childbirth 11/29/2008 10/10/2009 Mastodynia 11/29/2008 10/10/2009 Tobacco use disorder 08/06/2008 012 documented as of this encounter (statuses as of 03/29/2023) [facility] of Past illness Narrative* Problem Noted Date Diagnosed Date Resolved Date IUD (intrauterine device) in place 03/29/2013 08/23/2017 Supervision of high-risk 06/06/2012 02/22/2013 Overview: 06/06/12 - RA done v23 - KK Rh negative state in antepartum period 05/26/2012 02/22/2013 Prior complicated by IUGR, antepartum 05/25/2012 02/22/2013 Overview: 06/06/12 - plan for 3rd trimester growth ultrasounds - KK 05/25/2012 She has a history of IUGR with her last . History of recurrent UTI (ur inary tract infection) 05/25/2012 06/06/2012 Overview: 05/25/2012Pt has a history of recurrent UTI during her pregnancies. Discussed importance of reporting the onset of any symptoms of a UTI should it occur during . History of hemorr casey, currently 05/25/2012 02/22/2013 Overview: 05/25/2012Thania has a history of hemorrhage with her first delivery. History of depression 05/25/20122012 Overview: 06/06/12 - doing well, no meds - KK 05/25/2012Pt has a history of depression since age 16 that has been treated in the past by Dr. Deras and Chava Wray. She has been off medication for 2 years. She believes she is doing well off medication. She denies any depression symptoms now. Discussed increased risks of depression during and and importance of reporting the development or worsening of symptoms should they occur. Pt denies ever having any suicidal thoughts or tendencies or thoughts of hurting others. History of asthma 05/25/2012 02/22/2013 Overview: 05/25/2012Pt has a history of childhood asthma. She denies any asthma attacks since age 13. Nausea and vomiting in 05/25/2012 02/22/2013 Overview: 05/25/2012Patient complaining of nausea and vomiting in . She states she is able to keep most of her food and fluids down. Discussed nausea and vomiting in . Patient is advised to call/come in if she is unable to keep any food or fluids down in a 24-hour period. A prescription for Phenergan was given by Dr. Mckeon. Last Assessment & Plan: 07/04/2012 States ongoing Nausea and Vomiting mostly in the morning and until around noon. She continues to use Zofran as needed for this. We discussed her eating a protein snack prior to going to bed and keeping crackers bedside to snack on if she wakes up in the middle of the night. Also, recommended peppermint candies. Daisy Morales CNP Immunization due 05/25/2012 02/22/2013 Overview: 05/25/2012 patient states her tetanus vaccine is not up-to-date Other acne 06/30/2010 06/06/2012 Folliculitis 06/30/2010 06/06/2012 Pruritus 06/30/2010 06/06/2012 Eczematous dermatitis 06/30/20102011 Acne Urticata 06/30/2010 06/06/2012 Routine general medical exam ination at a health care facility 02/19/2010 06/06/2012 Overview: 02/19/2010, from Dr. Deras Routine gynecological examination 02/19/2010 06/06/2012 Overview: [facility], [facility] [place] DEPRESSION 10/28/2009 06/06/2012 Poor growth, affecting management of mother, antepartum condition or complication 08/20/2009 10/10/2009 Galactorrhea not associated with childbirth 11/29/2008 10/10/2009 Mastodynia 11/29/2008 10/10/2009 Tobacco use disorder 08/06/2008 012 documented as of this encounter (statuses as of 04/06/2023) [facility] History of Past illness Narrative* Problem Noted Date Diagnosed Date Resolved Date IUD (intrauterine device) in place 03/29/2013 08/23/2017 Supervision of high-risk 06/06/2012 02/22/2013 Overview: 06/06/12 - RA done v23 - KK Rh negative state in antepartum period 05/26/2012 02/22/2013 Prior complicated by IUGR, antepartum 05/25/2012 02/22/2013 Overview: 06/06/12 - plan for 3rd trimester growth ultrasounds - KK 05/25/2012 She has a history of IUGR with her last . History of recurrent UTI (ur inary tract infection) 05/25/2012 06/06/2012 Overview: 05/25/2012Pt has a history of recurrent UTI during her pregnancies. Discussed importance of reporting the onset of any symptoms of a UTI should it occur during . History of hemorr casey, currently 05/25/2012 02/22/2013 Overview: 05/25/2012She has a history of hemorrhage with her first delivery. History of depression 05/25/20122012 Overview: 06/06/12 - doing well, no meds - KK 05/25/2012Pt has a history of depression since age 16 that has been treated in the past by Dr. Deras and Chava Wray. She has been off medication for 2 years. She believes she is doing well off medication. She denies any depression symptoms now. Discussed increased risks of depression during and and importance of reporting the development or worsening of symptoms should they occur. Pt denies ever having any suicidal thoughts or tendencies or thoughts of hurting others. History of asthma 05/25/2012 02/22/2013 Overview: 05/25/2012Pt has a history of childhood asthma. She denies any asthma attacks since age 13. Nausea and vomiting in 05/25/2012 02/22/2013 Overview: 05/25/2012Patient complaining of nausea and vomiting in . She states she is able to keep most of her food and fluids down. Discussed nausea and vomiting in . Patient is advised to call/come in if she is unable to keep any food or fluids down in a 24-hour period. A prescription for Phenergan was given by Dr. Mckeon. Last Assessment & Plan: 07/04/2012 States ongoing Nausea and Vomiting mostly in the morning and until around noon. She continues to use Zofran as needed for this. We discussed her eating a protein snack prior to going to bed and keeping crackers bedside to snack on if she wakes up in the middle of the night. Also, recommended peppermint candies. Daisy Morales CNP Immunization due 05/25/2012 02/22/2013 Overview: 05/25/2012 patient states her tetanus vaccine is not up-to-date Other acne 06/30/2010 06/06/2012 Folliculitis 06/30/2010 06/06/2012 Pruritus 06/30/2010 06/06/2012 Eczematous dermatitis 06/30/20102011 Acne Urticata 06/30/2010 06/06/2012 Routine general medical exam ination at a health care facility 02/19/2010 06/06/2012 Overview: 02/19/2010, from Dr. Deras Routine gynecological examination 02/19/2010 06/06/2012 Overview: [facility] [place] DEPRESSION 10/28/2009 06/06/2012 Poor growth, affecting management of mother, antepartum condition or complication 08/20/2009 10/10/2009 Galactorrhea not associated with childbirth 11/29/2008 10/10/2009 Mastodynia 11/29/2008 10/10/2009 Tobacco use disorder 08/06/2008 012 documented as of this encounter (statuses as of 07/29/2023) [facility] History of Past illness Narrative* Problem Noted Date Diagnosed Date Resolved Date IUD (intrauterine device) in place 03/29/2013 08/23/2017 Supervision of high-risk 06/06/2012 02/22/2013 Overview: 06/06/12 - RA done v23 - KK Rh negative state in antepartum period 05/26/2012 02/22/2013 Prior complicated by IUGR, antepartum 05/25/2012 02/22/2013 Overview: 06/06/12 - plan for 3rd trimester growth ultrasounds - KK 05/25/2012 She has a history of IUGR with her last . History of recurrent UTI (ur inary tract infection) 05/25/2012 06/06/2012 Overview: 05/25/2012Pt has a history of recurrent UTI during her pregnancies. Discussed importance of reporting the onset of any symptoms of a UTI should it occur during . History of hemorr casey, currently 05/25/2012 02/22/2013 Overview: 05/25/2012She has a history of hemorrhage with her first delivery. History of depression 05/25/20122012 Overview: 06/06/12 - doing well, no meds - KK 05/25/2012Pt has a history of depression since age 16 that has been treated in the past by Dr. Deras and Chava Wray. She has been off medication for 2 years. She believes she is doing well off medication. She denies any depression symptoms now. Discussed increased risks of depression during and and importance of reporting the development or worsening of symptoms should they occur. Pt denies ever having any suicidal thoughts or tendencies or thoughts of hurting others. History of asthma 05/25/2012 02/22/2013 Overview: 05/25/2012Pt has a history of childhood asthma. She denies any asthma attacks since age 13. Nausea and vomiting in 05/25/2012 02/22/2013 Overview: 05/25/2012Patient complaining of nausea and vomiting in . She states she is able to keep most of her food and fluids down. Discussed nausea and vomiting in . Patient is advised to call/come in if she is unable to keep any food or fluids down in a 24-hour period. A prescription for Phenergan was given by Dr. Mckeon. Last Assessment & Plan: 07/04/2012 States ongoing Nausea and Vomiting mostly in the morning and until around noon. She continues to use Zofran as needed for this. We discussed her eating a protein snack prior to going to bed and keeping crackers bedside to snack on if she wakes up in the middle of the night. Also, recommended peppermint candies. Daisy Morales CNP Immunization due 05/25/2012 02/22/2013 Overview: 05/25/2012 patient states her tetanus vaccine is not up-to-date Other acne 06/30/2010 06/06/2012 Folliculitis 06/30/2010 06/06/2012 Pruritus 06/30/2010 06/06/2012 Eczematous dermatitis 06/30/20102011 Acne Urticata 06/30/2010 06/06/2012 Routine general medical exam ination at a health care facility 02/19/2010 06/06/2012 Overview: 02/19/2010, from Dr. Deras Routine gynecological examination 02/19/2010 06/06/2012 Overview: [facility] [place] DEPRESSION 10/28/2009 06/06/2012 Poor growth, affecting management of mother, antepartum condition or complication 08/20/2009 10/10/2009 Galactorrhea not associated with childbirth 11/29/2008 10/10/2009 Mastodynia 11/29/2008 10/10/2009 Tobacco use disorder 08/06/2008 012 documented as of this encounter (statuses as of 08/25/2023) [facility] History of Past illness Narrative* Problem Noted Date Diagnosed Date Resolved Date IUD (intrauterine device) in place 03/29/2013 08/23/2017 Supervision of high-risk 06/06/2012 02/22/2013 Overview: 06/06/12 - RA done v23 - KK Rh negative state in antepartum period 05/26/2012 02/22/2013 Prior complicated by IUGR, antepartum 05/25/2012 02/22/2013 Overview: 06/06/12 - plan for 3rd trimester growth ultrasounds - KK 05/25/2012 She has a history of IUGR with her last . History of recurrent UTI (ur inary tract infection) 05/25/2012 06/06/2012 Overview: 05/25/2012Pt has a history of recurrent UTI during her pregnancies. Discussed importance of reporting the onset of any symptoms of a UTI should it occur during . History of hemorr casey, currently 05/25/2012 02/22/2013 Overview: 05/25/2012Thania has a history of hemorrhage with her first delivery. History of depression 05/25/20122012 Overview: 06/06/12 - doing well, no meds - KK 05/25/2012Pt has a history of depression since age 16 that has been treated in the past by Dr. Deras and Chava Wray. She has been off medication for 2 years. She believes she is doing well off medication. She denies any depression symptoms now. Discussed increased risks of depression during and and importance of reporting the development or worsening of symptoms should they occur. Pt denies ever having any suicidal thoughts or tendencies or thoughts of hurting others. History of asthma 05/25/2012 02/22/2013 Overview: 05/25/2012Pt has a history of childhood asthma. She denies any asthma attacks since age 13. Nausea and vomiting in 05/25/2012 02/22/2013 Overview: 05/25/2012Patient complaining of nausea and vomiting in . She states she is able to keep most of her food and fluids down. Discussed nausea and vomiting in . Patient is advised to call/come in if she is unable to keep any food or fluids down in a 24-hour period. A prescription for Phenergan was given by Dr. Mckeon. Last Assessment & Plan: 07/04/2012 States ongoing Nausea and Vomiting mostly in the morning and until around noon. She continues to use Zofran as needed for this. We discussed her eating a protein snack prior to going to bed and keeping crackers bedside to snack on if she wakes up in the middle of the night. Also, recommended peppermint candies. Daisy Morales CNP Immunization due 05/25/2012 02/22/2013 Overview: 05/25/2012 patient states her tetanus vaccine is not up-to-date Other acne 06/30/2010 06/06/2012 Folliculitis 06/30/2010 06/06/2012 Pruritus 06/30/2010 06/06/2012 Eczematous dermatitis 06/30/20102011 Acne Urticata 06/30/2010 06/06/2012 Routine general medical exam ination at a health care facility 02/19/2010 06/06/2012 Overview: 02/19/2010, from Dr. Deras Routine gynecological examination 02/19/2010 06/06/2012 Overview: [facility] [place] DEPRESSION 10/28/2009 06/06/2012 Poor growth, affecting management of mother, antepartum condition or complication 08/20/2009 10/10/2009 Galactorrhea not associated with childbirth 11/29/2008 10/10/2009 Mastodynia 11/29/2008 10/10/2009 Tobacco use disorder 08/06/2008 012 documented as of this encounter (statuses as of 09/05/2023) [facility] History of Past illness Narrative* Problem Noted Date Diagnosed Date Resolved Date IUD (intrauterine device) in place 03/29/2013 08/23/2017 Supervision of high-risk 06/06/2012 02/22/2013 Overview: 06/06/12 - RA done v23 - KK Rh negative state in antepartum period 05/26/2012 02/22/2013 Prior complicated by IUGR, antepartum 05/25/2012 02/22/2013 Overview: 06/06/12 - plan for 3rd trimester growth ultrasounds - KK 05/25/2012 She has a history of IUGR with her last . History of recurrent UTI (ur inary tract infection) 05/25/2012 06/06/2012 Overview: 05/25/2012Pt has a history of recurrent UTI during her pregnancies. Discussed importance of reporting the onset of any symptoms of a UTI should it occur during . History of hemorr casey, currently 05/25/2012 02/22/2013 Overview: 05/25/2012She has a history of hemorrhage with her first delivery. History of depression 05/25/20122012 Overview: 06/06/12 - doing well, no meds - KK 05/25/2012Pt has a history of depression since age 16 that has been treated in the past by Dr. Deras and Chava Wray. She has been off medication for 2 years. She believes she is doing well off medication. She denies any depression symptoms now. Discussed increased risks of depression during and and importance of reporting the development or worsening of symptoms should they occur. Pt denies ever having any suicidal thoughts or tendencies or thoughts of hurting others. History of asthma 05/25/2012 02/22/2013 Overview: 05/25/2012Pt has a history of childhood asthma. She denies any asthma attacks since age 13. Nausea and vomiting in 05/25/2012 02/22/2013 Overview: 05/25/2012Patient complaining of nausea and vomiting in . She states she is able to keep most of her food and fluids down. Discussed nausea and vomiting in . Patient is advised to call/come in if she is unable to keep any food or fluids down in a 24-hour period. A prescription for Phenergan was given by Dr. Mckeon. Last Assessment & Plan: 07/04/2012 States ongoing Nausea and Vomiting mostly in the morning and until around noon. She continues to use Zofran as needed for this. We discussed her eating a protein snack prior to going to bed and keeping crackers bedside to snack on if she wakes up in the middle of the night. Also, recommended peppermint candies. Daisy Morales CNP Immunization due 05/25/2012 02/22/2013 Overview: 05/25/2012 patient states her tetanus vaccine is not up-to-date Other acne 06/30/2010 06/06/2012 Folliculitis 06/30/2010 06/06/2012 Pruritus 06/30/2010 06/06/2012 Eczematous dermatitis 06/30/20102011 Acne Urticata 06/30/2010 06/06/2012 Routine general medical exam ination at a health care facility 02/19/2010 06/06/2012 Overview: 02/19/2010, from Dr. Deras Routine gynecological examination 02/19/2010 06/06/2012 [facility] [place] DEPRESSION 10/28/2009 06/06/2012 Poor growth, affecting management of mother, antepartum condition or complication 08/20/2009 10/10/2009 Galactorrhea not associated with childbirth 11/29/2008 10/10/2009 Mastodynia 11/29/2008 10/10/2009 Tobacco use disorder 08/06/2008 012 documented as of this encounter (statuses as of 09/25/2023) [facility] Diagnosis Treatment not available- Primary Procedure not carried out for other reasons Patient left without being seen Surgical or other procedure not carried out because of patient's decision [facility] Mouth pain- Primary Other and unspecified diseases of the oral soft tissues [facility] Diagnosis Bipolar 2 disorder (HCC)- Primary Other bipolar disorders ZAIRE (generalized anxiety disorder) Generalized anxiety disorder [facility] Diagnosis APPOINTMENT CANCELLED- Primary [facility] Diagnosis ZAIRE (generalized anxiety disorder)- Primary Generalized anxiety disorder Bipolar 2 disorder (HCC) Other bipolar disorders [facility] Diagnosis Bipolar 2 disorder (HCC)- Primary Other bipolar disorders ZAIRE (generalized anxiety disorder) Generalized anxiety disorder [facility] Diagnosis Bipolar 2 disorder (HCC)- Primary Other bipolar disorders ZAIRE (generalized anxiety disorder) Generalized anxiety disorder [facility] Diagnosis APPOINTMENT CANCELLED- Primary [facility] Diagnosis Encounter for long-term (current) use of medications- Primary Encounter for long-term (current) use of other medications ZAIRE (generalized anxiety disorder) Generalized anxiety disorder Bipolar 2 disorder (HCC) Other bipolar disorders [facility] Diagnosis NO SHOW- Primary [facility] Diagnosis ZAIRE (generalized anxiety disorder)- Primary Generalized anxiety disorder Bipolar 2 disorder (HCC) Other bipolar disorders Nightmares Other dysfunctions of sleep stages or arousal from sleep [facility] Diagnosis APPOINTMENT CANCELLED- Primary [facility] Diagnosis Hot flashes- Primary Symptomatic menopausal or female climacteric states Irritability Other acne Malaise and fatigue Other malaise and fatigue Encounter for long-term (current) use of medications Encounter for long-term (current) use of other medications ZAIRE (generalized anxiety disorder) Generalized anxiety disorder Bipolar 2 disorder (HCC) Other bipolar disorders Nightmares Other dysfunctions of sleep stages or arousal from sleep [facility] Bipolar 2 disorder (HCC)- Primary Other bipolar disorders ZAIRE (generalized anxiety disorder) Generalized anxiety disorder Encounter for long-term (current) use of medications Encounter for long-term (current) use of other medications Nightmares Other dysfunctions of sleep stages or arousal from sleep Current nicotine use [facility] Diagnosis Bipolar 2 disorder (HCC)- Primary Other bipolar disorders ZAIRE (generalized anxiety disorder) Generalized anxiety disorder [facility] Diagnosis Hot flashes- Primary Symptomatic menopausal or female climacteric states Irritability Other acne Hair thinning Alopecia, unspecified [facility] Diagnosis Bipolar 2 disorder (HCC)- Primary Other bipolar disorders ZAIRE (generalized anxiety disorder) Generalized anxiety disorder [facility] Diagnosis Abnormal hemoglobin (HCC)- Primary Other hemoglobinopathies ZAIRE (generalized anxiety disorder) Generalized anxiety disorder Elevated liver enzymes Other nonspecific abnormal serum enzyme levels Metabolic syndrome Dysmetabolic Syndrome X Bipolar 2 disorder (HCC) Other bipolar disorders [facility] Diagnosis URI, acute- Primary Acute upper respiratory infections of unspecified site Acute cough Acute otitis media, right Unspecified otitis media [facility] Diagnosis Encounter for long-term (current) use of medications- Primary Encounter for long-term (current) use of other medications Bipolar 2 disorder (HCC) Other bipolar disorders ZAIRE (generalized anxiety disorder) Generalized anxiety disorder Metabolic syndrome Dysmetabolic Syndrome X Elevated liver enzymes Other nonspecific abnormal serum enzyme levels [facility] Diagnosis Bipolar 2 disorder (HCC)- Primary Other bipolar disorders ZAIRE (generalized anxiety disorder) Generalized anxiety disorder Metabolic syndrome Dysmetabolic Syndrome X Elevated liver enzymes Other nonspecific abnormal serum enzyme levels Irritability Abnormal hemoglobin (HCC) Other hemoglobinopathies [facility] Diagnosis Elevated lipids- Primary Other and unspecified hyperlipidemia [facility] Diagnosis Hyperlipidemia, mixed- Primary Mixed hyperlipidemia Daytime somnolence Hypersomnia, unspecified Nodule of external ear, left [facility] Diagnosis Nodule of external ear, left [facility] Diagnosis Depression- Primary Depressive disorder, not elsewhere classified Preventive measure Unspecified prophylactic or treatment measure Encounter to establish care Other reasons for seeking consultation Viral upper respiratory illness- Primary Acute upper respiratory infections of unspecified site documented in this encounter [facility] Reason for Referral Specialty Diagnoses / Procedures Referred By Contac t Referred To Contact Diagnoses Hot flashes Irritability Other acne Procedures CONSULT TO GAS ENGINE OPERATOR GENERATORS OFFICE/OUTPATIENT [facility] MDM 60-74 MINUTES Kinsey Levine, ELECTRICAL APPLIANCE MECHANIC.RESEARCH CHEMICAL ENGINEER [address] [place] [address] Referral ID Status Reason Start Date Expiration Date Visits Requested Visits Authorized [id number] Authorized PCP Requested Referral Auto-Generate d Referral 3 04/03/2024 1 1 Specialty Diagnoses / Procedures Referred By Contac t Referred To Contact Ent - Otolaryngology Diagnoses Nodule of external ear, left Procedures CONSULT TO ENT OFFICE/OUTPATIENT [facility] 60 MINUTES Guille Conde MD [address] [place] [address] Referral ID Status Reason Start Date Expiration Date Visits Requested Visits Authorized [id number] Authorized PCP Requested Referral 01/18/2024 01/17/2025 1 1 Specialty Diagnoses / Procedures Referred By Contac t Referred To Contact [facility] Diagnoses Nodule of external ear, left Procedures US HEAD/NECK SOFT TISSUE OTHER US SOFT TISSUE HEAD & NECK REAL TIME IMGE DOCM Guille Conde MD [address] [place] [address] [place] [id number] Referral ID Status Reason Start Date Expiration Date Visits Requested Visits Authorized [id number] Authorized Auto-Generat ed Referral 01/18/2024 02/16/2025 1 1 Summary Purpose Family History No Family History Records Found Advance Directives No Advanced Directives Records Found Additional Source Comments Source Comments (unrecognize d section and content) In the event this informatio n is protected by the Federal Confidentiality of Alcohol and Drug Abuse Patient Records regulations: The Federal rules restrict any use of the information to criminally investigate or prosecute any alcohol or drug abuse patient.[facility] the event this information is protected by the Federal Confidentiality of Alcohol and Drug Abuse Patient Records regulations: The Federal rules restrict any use of the information to criminally investigate or prosecute any alcohol or drug abuse patient.[facility] the event this information is protected by the Federal Confidentiality of Alcohol and Drug Abuse Patient Records regulations: The Federal rules restrict any use of the information to criminally investigate or prosecute any alcohol or drug abuse patient.[facility] the event this information is protected by the Federal Confidentiality of Alcohol and Drug Abuse Patient Records regulations: The Federal rules restrict any use of the information to criminally investigate or prosecute any alcohol or drug abuse patient.[facility] the event this information is protected by the Federal Confidentiality of Alcohol and Drug Abuse Patient Records regulations: The Federal rules restrict any use of the information to criminally investigate or prosecute any alcohol or drug abuse patient.[facility] the event this information is protected by the Federal Confidentiality of Alcohol and Drug Abuse Patient Records regulations: The Federal rules restrict any use of the information to criminally investigate or prosecute any alcohol or drug abuse patient.[facility] the event this information is protected by the Federal Confidentiality of Alcohol and Drug Abuse Patient Records regulations: The Federal rules restrict any use of the information to criminally investigate or prosecute any alcohol or drug abuse patient.[facility] the event this information is protected by the Federal Confidentiality of Alcohol and Drug Abuse Patient Records regulations: The Federal rules restrict any use of the information to criminally investigate or prosecute any alcohol or drug abuse patient.[facility] the event this information is protected by the Federal Confidentiality of Alcohol and Drug Abuse Patient Records regulations: The Federal rules restrict any use of the information to criminally investigate or prosecute any alcohol or drug abuse patient.[facility] the event this information is protected by the Federal Confidentiality of Alcohol and Drug Abuse Patient Records regulations: The Federal rules restrict any use of the information to criminally investigate or prosecute any alcohol or drug abuse patient.[facility] the event this information is protected by the Federal Confidentiality of Alcohol and Drug Abuse Patient Records regulations: The Federal rules restrict any use of the information to criminally investigate or prosecute any alcohol or drug abuse patient.[facility] the event this information is protected by the Federal Confidentiality of Alcohol and Drug Abuse Patient Records regulations: The Federal rules restrict any use of the information to criminally investigate or prosecute any alcohol or drug abuse patient.[facility] the event this information is protected by the Federal Confidentiality of Alcohol and Drug Abuse Patient Records regulations: The Federal rules restrict any use of the information to criminally investigate or prosecute any alcohol or drug abuse patient.[facility] Hospital[facility] the event this information is protected by the Federal Confidentiality of Alcohol and Drug Abuse Patient Records regulations: The Federal rules restrict any use of the information to criminally investigate or prosecute any alcohol or drug abuse patient.[facility] the event this information is protected by the Federal Confidentiality of Alcohol and Drug Abuse Patient Records regulations: The Federal rules restrict any use of the information to criminally investigate or prosecute any alcohol or drug abuse patient.[facility] Hospital[facility] the event this information is protected by the Federal Confidentiality of Alcohol and Drug Abuse Patient Records regulations: The Federal rules restrict any use of the information to criminally investigate or prosecute any alcohol or drug abuse patient.[facility] Hospital[facility] the event this information is protected by the Federal Confidentiality of Alcohol and Drug Abuse Patient Records regulations: The Federal rules restrict any use of the information to criminally investigate or prosecute any alcohol or drug abuse patient.[facility] HospitalIn the event this information is protected by the Federal Confidentiality of Alcohol and Drug Abuse Patient Records regulations: The Federal rules restrict any use of the information to criminally investigate or prosecute any alcohol or drug abuse patient.[facility] HospitalIn the event this information is protected by the Federal Confidentiality of Alcohol and Drug Abuse Patient Records regulations: The Federal rules restrict any use of the information to criminally investigate or prosecute any alcohol or drug abuse patient.[facility] HospitalIn the event this information is protected by the Federal Confidentiality of Alcohol and Drug Abuse Patient Records regulations: The Federal rules restrict any use of the information to criminally investigate or prosecute any alcohol or drug abuse patient.[facility] HospitalIn the event this information is protected by the Federal Confidentiality of Alcohol and Drug Abuse Patient Records regulations: The Federal rules restrict any use of the information to criminally investigate or prosecute any alcohol or drug abuse patient.[facility] HospitalIn the event this information is protected by the Federal Confidentiality of Alcohol and Drug Abuse Patient Records regulations: The Federal rules restrict any use of the information to criminally investigate or prosecute any alcohol or drug abuse patient.[facility] HospitalIn the event this information is protected by the Federal Confidentiality of Alcohol and Drug Abuse Patient Records regulations: The Federal rules restrict any use of the information to criminally investigate or prosecute any alcohol or drug abuse patient.[facility] HospitalIn the event this information is protected by the Federal Confidentiality of Alcohol and Drug Abuse Patient Records regulations: The Federal rules restrict any use of the information to criminally investigate or prosecute any alcohol or drug abuse patient.[facility] HospitalIn the event this information is protected by the Federal Confidentiality of Alcohol and Drug Abuse Patient Records regulations: The Federal rules restrict any use of the information to criminally investigate or prosecute any alcohol or drug abuse patient.[facility] HospitalIn the event this information is protected by the Federal Confidentiality of Alcohol and Drug Abuse Patient Records regulations: The Federal rules restrict any use of the information to criminally investigate or prosecute any alcohol or drug abuse patient.[facility] HospitalIn the event this information is protected by the Federal Confidentiality of Alcohol and Drug Abuse Patient Records regulations: The Federal rules restrict any use of the information to criminally investigate or prosecute any alcohol or drug abuse patient.[facility] HospitalIn the event this information is protected by the Federal Confidentiality of Alcohol and Drug Abuse Patient Records regulations: The Federal rules restrict any use of the information to criminally investigate or prosecute any alcohol or drug abuse patient.[facility] HospitalIn the event this information is protected by the Federal Confidentiality of Alcohol and Drug Abuse Patient Records regulations: The Federal rules restrict any use of the information to criminally investigate or prosecute any alcohol or drug abuse patient.[facility] HospitalIn the event this information is protected by the Federal Confidentiality of Alcohol and Drug Abuse Patient Records regulations: The Federal rules restrict any use of the information to criminally investigate or prosecute any alcohol or drug abuse patient.[facility] HospitalIn the event this information is protected by the Federal Confidentiality of Alcohol and Drug Abuse Patient Records regulations: The Federal rules restrict any use of the information to criminally investigate or prosecute any alcohol or drug abuse patient.[facility] HospitalIn the event this information is protected by the Federal Confidentiality of Alcohol and Drug Abuse Patient Records regulations: The Federal rules restrict any use of the information to criminally investigate or prosecute any alcohol or drug abuse patient.[facility] HospitalIn the event this information is protected by the Federal Confidentiality of Alcohol and Drug Abuse Patient Records regulations: The Federal rules restrict any use of the information to criminally investigate or prosecute any alcohol or drug abuse patient.[facility] HospitalIn the event this information is protected by the Federal Confidentiality of Alcohol and Drug Abuse Patient Records regulations: The Federal rules restrict any use of the information to criminally investigate or prosecute any alcohol or drug abuse patient.[facility] Reason for Visit (unrecogniz ed section and content) Reason Comments Mouth/Lip Problem pt LWBS Reason Comments Mouth/Lip Problem Reason Comments Follow Up Reason Comments Appointment Cancelled Reason Comments Appointment Rescheduled Reason Comments No Show Reason Comments Refill Request Reason Comments Follow Up Reason Comments Other Vasomotor symptoms Specialty Diagnoses / Procedures Referred By Contgloria t Referred To Contact Diagnoses Hot flashes Irritability Other acne Procedures CONSULT TO GAS ENGINE OPERATOR GENERATORS OFFICE/OUTPATIENT [facility] 60-74 MINUTES Kinsey Levine, ELECTRICAL APPLIANCE MECHANIC.RESEARCH CHEMICAL ENGINEER [address] [place] [address] Referral ID Status Reason Start Date Expiration Date V isits Requested Visits Authorized [id number] Closed PCP Requested Referral Auto-Generated Referral 04/04/2023 04/03/2024 1 1 Reason Comments Results Reason Comments lab question/reply Reason Comments Cough Chest congestion, so re throat, body aches x 4 days Reason Comments Medication Problem Not covered by insur ance Reason Comments Follow Up Bipolar/anxiety Reason Comments Follow Up multiple issues: hig h cholesterol, possible sleep apnea, left ear lump Specialty Diagnoses / Procedures Referred By Leroyac t Referred To Contact Family Medicine / FAMILY MEDICINE Diagnoses Sleep apnea Lump behind left ear/ Sleep apnea Procedures 4C EST Self Guille Conde MD [address] [place] [address] Referral ID Status Reason Start Date Expiration Date Visits Requested Visits Authorized [id number] Outside PCP Patient Cleared - INN Insurance Found 01/12/2024 04/11/2024 1 1 Reason Comments Radiology US Specialty Diagnoses / Procedures [facility] IM[facility] Diagnoses Nodule of external ear, left Procedures US HEAD/NECK SOFT TISSUE OTHER US SOFT TISSUE HEAD & NECK REAL TIME IMGE DOCM Guille Conde MD [address] [place] [address] [place] [address] Referral ID Status Reason Start Date Expiration Date V isits Requested Visits Authorized [id number] Closed Auto-Generate d Referral 01/18/2024 02/16/2025 1 1 Reason Comments Cough congestion, fatigue, sore throat and dizziness x 2 days Care Teams (unrecognized sec tion and content) Napper Tender Relationship Specialty Start Date End Date Guille Conde MD [address] [place], [place] [id number] PCP - General Family Practice 01/30/18 Napper Tender Relationship Specialty Start Date End Date Guille Conde MD [address] [place] [address] PCP - General Family Practice 01/30/18 Napper Tender Relationship Specialty Start Date End Date Guille Conde MD [address] [place] [address] PCP - General Family Practice 01/30/18 Napper Tender Relationship Specialty Start Date End Date Guille Conde MD [address] [place] [address] PCP - General Family Medicine 01/30/18 Napper Tender Relationship Specialty Start Date End Date Guille Conde MD [address] [place] [address] PCP - General Family Medicine 01/30/18 Napper Tender Relationship Specialty Start Date End Date Guille Conde MD [address] [place] [address] PCP - General Family Medicine 01/30/18 Napper Tender Relationship Specialty Start Date End Date Guille Conde MD [address] [place] [address] PCP - General Family Medicine 01/30/18 Napper Tender Relationship Specialty Start Date End Date Guille Conde MD [address] [place] [address] PCP - General Family Medicine 01/30/18 Napper Tender Relationship Specialty Start Date End Date Guille Conde MD [address] [place] [address] PCP - General Family Medicine 01/30/18 Napper Tender Relationship Specialty Start Date End Date Guille Conde MD [address] [place] [address] PCP - General Family Medicine 01/30/18 Napper Tender Relationship Specialty Start Date End Date Guille Conde MD [address] [place] [address] PCP - General Family Medicine 01/30/18 Napper Tender Relationship Specialty Start Date End Date Guille Conde MD [address] [place] [address] PCP - General Family Medicine 01/30/18 Napper Tender Relationship Specialty Start Date End Date Guille Conde MD [address] [place] [address] PCP - General Family Medicine 01/30/18 Napper Tender Relationship Specialty Start Date End Date Guille Conde MD [address] [place] [address] PCP - General Family Medicine 01/30/18 Napper Tender Relationship Specialty Start Date End Date Guille Conde MD [address] [place] [address] PCP - General Family Medicine 01/30/18 Napper Tender Relationship Specialty Start Date End Date Guille Conde MD [address] [place] [address] PCP - General Family Medicine 01/30/18 Napper Tender Relationship Specialty Start Date End Date Guille Conde MD [address] [place] [address] PCP - General Family Medicine 01/30/18 Napper Tender Relationship Specialty Start Date End Date Guille Conde MD [address] [place] [address] PCP - General Family Medicine 01/30/18 Napper Tender Relationship Specialty Start Date End Date Guille Conde MD [address] [place] [address] PCP - General Family Medicine 01/30/18 Napper Tender Relationship Specialty Start Date End Date Guille Conde MD [address] [place] [address] PCP - General Family Medicine 01/30/18 Napper Tender Relationship Specialty Start Date End Date Guille Conde MD [address] [place] [address] PCP - General Family Medicine 01/30/18 Napper Tender Relationship Specialty Start Date End Date Guille Conde MD [address] [place] [address] PCP - General Family Medicine 01/30/18 Napper Tender Relationship Specialty Start Date End Date Guille Conde MD [address] [place] [address] PCP - General Family Medicine 01/30/18 Napper Tender Relationship Specialty Start Date End Date Guille Conde MD [address] [place] [address] PCP - General Family Medicine 01/30/18 INFORMATION SOURCE (unrecogn ized section and content) DATE CREATED AUTHOR 03/25/2024 [facility] FOR RECORDS PERTAINING TO PATIENTS WHO ARE OR HAVE BEEN ENROLLED IN A CHEMICAL DEPENDENCY/SUBSTANCEABUSE PROGRAM, SOME INFORMATION MAY BE OMITTED. This clinical summary was aggregated from multiple sources. Caution should be exercised in using it in the provision of clinical care. This summary normalizes information from multiple sources, and as a consequence, information in this document may materially change the coding, format and clinical context of patient data. In addition, data may be omitted in some cases. CLINICAL DECISIONS SHOULD BE BASED ON THE PRIMARY CLINICAL RECORDS. [facility]. provides no warranty or guarantee of the accuracy or completeness of information in this document.
[2024-03-26] MEDS: Lactated Ringers 1,000 ML 15 ML IV (06:35)
--- NOTE | 2024-03-26 07:03 | PCM.PRE.AN2 ---
ASA Classification* ASA Classification ASA Classification: 2 Assessment & Plan Anesthesia* Anesthesia Assessment Anesthesia Assessment: Discussed sedation and/or anesthesia options, risks, benefits, and alternatives with patient/parents/legal guardian/POA. Questions invited. The patient/parents/legal guardian/POA seems to understand and agrees to proceed with anesthesia plan. Reviewed the physical assessment, medical history, allergy history and patient home medications list prior to surgery/procedure/anesthetic and documented any changes. Performed airway and anesthesia risk assessments. Anesthesia Type Anesthesia Type: General History Source History Obtained from:: Patient and Chart Anesthesia Focused Assessment* Temperature: 98.2 F Pulse Rate: 76 Blood Pressure: 99/64 Respiratory Rate: 16 Pulse Ox: 96 Oxygen Delivery Method: Room Air Airway Assessment Mouth opens: >3 cm Mallampati Score: I Teeth Condition: Missing (Few missing. Rest are tight.) Neck Range of motion (ROM): Limited ROM (Slight limited extension.) Focused Labs Anesthesia Preop lab: CBC WBC 9.0 K/mm3 (4.4-11.0) 06/11/22 21:30 RBC 5.30 M/mm3 (4.2-5.4) 06/11/22 21:30 Hgb 15.3 g/dL (12.0-15.0) H 06/11/22 21:30 Hct 46.4 % (37-47) 06/11/22 21:30 Plt Count 208 K/mm3 (150-450) 06/11/22 21:30 CHEMISTRY Potassium 3.7 mmol/L (3.5-5.1) 06/11/22 21:30 Sodium 136 mmol/L (136-145) 06/11/22 21:30 Magnesium 2.3 mg/dL (1.6-2.6) 02/16/22 02:00 BUN 13 mg/dL (7-18) 06/11/22 21:30 Creatinine 0.89 mg/dL (0.55-1.02) 06/11/22 21:30 Glucose 117 mg/dL (74-106) H 06/11/22 21:30 TSH 0.97 uIU/mL (0.358-3.74) 06/20/13 22:40 COAG HCG, Quant 9702 mIU/mL (<9 non-preg) H 05/14/12 21:55 Urine Test Negative Negative 03/16/18 12:54 Pre-Assessment Diagnosis/Proposed Procedure Planned Operative Procedure(s): (L) Excision, Cyst left post auricular cyst Anesthesia History Anesthesia History - adding machine mechanic: Anesthesia History - adding machine mechanic Hx Hospitalization No 02/27/24 10:21 Any Problems With Anesthesia Yes: HARD TIME WAKING AFTER 02/27/24 10:21 ESSURE, FEELS SHE WAS STRESSED AFTER WAKING Cholinesterase deficiency No 02/27/24 10:21 You/Your Family Experience No 02/27/24 10:21 fever (hyperthermia) with Relationship Recent Exposure to Contagious No 03/26/24 06:30 Disease Does patient have nerve No 02/27/24 10:21 stimulator Patient instructed to have device shut off --Does patient have Pacemaker No 03/26/24 06:32 or ICD? When Was Last Pacemaker Check QUESTION #4 FULL TEXT: You/Your Family Experience fever (hyperthermia) with Anesthesia Last Oral Intake Last Oral intake: Last Oral Intake NPO since 00:00 03/26/24 06:32 Meds taken in AM with sips of water? Meds patient instructed to take am of surgery PONV PONV - adding machine mechanic: PONV - adding machine mechanic Female Yes 02/27/24 10:21 HX of Motion Sickness Yes 02/27/24 10:21 HX of N/V After Surgery No 02/27/24 10:21 Non-Smoker No 02/27/24 10:21 Duration of Surgery greater No 02/27/24 10:21 than 60 minutes Number of Risk Factors 2 02/27/24 10:21 PONV Score Moderate Risk 02/27/24 10:21 Height & Weight Height & Weight: Anesthesia: Height & Weight Height 5 ft 1 in 03/26/24 06:32 Weight: 78 kg 03/26/24 06:32 Body Mass Index (BMI) 32.5 03/26/24 06:32 Respiratory Assessment Respiratory Assessment - adding machine mechanic: Respiratory Tract Infection Hx - adding machine mechanic Hx Respiratory Tract Infection Yes: FEELS UNDER WEATHER 02/27/24 10:21 SCRATCHY THROAT, STUFFY NOSE - Any additional information?: Yes Hx Respiratory Tract Infection: No STOP Sleep Apnea STOP Sleep Apnea - adding machine mechanic: STOP Sleep Apnea - adding machine mechanic Hx Hypertension No 02/27/24 10:21 Hx Sleep Apnea No 02/27/24 10:21 CPAP No 02/27/24 10:21 BIPAP No 02/27/24 10:21 Do you snore loudly (louder No 02/27/24 10:21 than talking or can be heard Do you often feel tired/ No 02/27/24 10:21 fatigued/ sleepy during daytime? Has anyone observed you stop No 02/27/24 10:21 breathing during sleep? STOP Results Negative 02/27/24 10:21 QUESTION #5 FULL TEXT : Do you snore loudly (louder than talking or can be heard through closed doors)? Tobacco Use History Tobacco Use History - adding machine mechanic: Tobacco Use History - adding machine mechanic Tobacco Use Smoking Status Current every day smoker 02/27/24 10:21 Hx Tobacco Use Yes 02/27/24 10:21 Years Smoking Packs Smoked per Day Smoking Cessation Date was within the last 15 years Hx Smoking Cessation Date 02/27/24 10:21 Hx Smoking Cessation Counseling Any additional information?: Yes Smoking Status: Current every day smoker (Patient did not smoke today.) Hematologic Medial History Hematologic Hx - adding machine mechanic: Hematologic Medical Hx - compliance nurse Hx of Blood Transfusion Yes 02/27/24 10:21 Hx of Transfusion in last 3 No 02/27/24 10:21 Months Date of Last Transfusion (if within last 3 months) Ever experience any problems No 02/27/24 10:21 with transfusion(s)? Specify any problems Hx of Preganancy in last 3 No 02/27/24 10:21 Months Nurse Filling Out Transfusion VCHRISTIN 02/27/24 10:21 & Questions: Date: 02/27/24 02/27/24 10:21 Time: 10:24 02/27/24 10:21 Patient unable to answer at this time (ie. confused, unrespo /Reproduction History /Reproductive History - adding machine mechanic: /Reproductive Hx- adding machine mechanic Hx Now No 02/27/24 10:21 Gestational Age (in weeks): EDC: Hx Hx Para Hx Section SAB No 02/27/24 10:21 Active Medications Active Medications: Current Medications Generic Name Dose Route Start Last Admin Trade Name Freq PRN Reason Stop Dose Admin Lactated Ringer's 1,000 mls @ 15 mls/hr 03/26/24 06:15 03/26/24 06:35 IV 15 mls/hr .Q48H ODIN Administration PFSH Medical History Wears glasses Post-menopausal Depression History of steroid therapy Back pain Injury of head and neck Gastric reflux Smoker Asthma Leg cramps History of pain when walking History of edema Bulging disc Bipolar 2 disorder Back pain Migraine Panic attack Anxiety Home Medications ?Medication ?Instructions ?Recorded ?Last Taken ?Type albuterol sulfate 90 mcg/actuation 2 puff inhalation Q4H PRN PRN sob 11/30/21 03/25/24 Rx aerosol inhaler (Ventolin HFA) #8.5 grams diazepam 2 mg tablet (Valium) 2 mg PO QHS PRN muscle spasm #10 12/12/21 03/25/24 Rx tabs gabapentin 300 mg capsule 300 mg PO BID 02/27/24 03/25/24 History lurasidone 40 mg tablet 40 mg PO DAILY 02/27/24 03/25/24 History prazosin 1 mg capsule 1 mg PO QHS 02/27/24 03/25/24 History Allergy/AdvReac Type Severity Reaction Status Date / Time Sulfa (Sulfonamide Allergy Rash Verified 02/27/24 10:10 Antibiotics) Surgical History Hx of surgical procedure History of tonsillectomy and adenoidectomy Hx of hysterectomy Social History Smoking Status: Current every day smoker tobacco type: cigarettes Review of Systems (Anesthesia) ROS Narrative System reviewed and no additional complaints, except as documented.
[2024-03-26] MEDS: Ipratropium/Albuterol Sulfate 3 ML AMPUL.NEB INHALATION (07:25)
--- NOTE | 2024-03-26 07:30 | CYST_PTH ---
PATHOLOGY RESULTS PATIENT: VIBHA BOUCHER [place] [facility] [place][id number] AGE/SX: 39/F ROOM: RE03/26/[address]: Dr. Miko Erwin MD : 1985 BED: DIS: 03/26/2024 SPEC #: [id number] RECD: 03/26/24 11:07 STATUS: DANAY ANDRIY #: [id number] BERNY: 03/26/24 07:[address]: Miko Erwin DEPT: SURGICAL PATHOLOGY RECD BY: Jael Osuna ENTERED: 03/26/24 11:41 SP TYPE: Cyst OTHR DR: Dr. Brent Conde MD Tissues: CYST Procedures: Surgery Specimen Level III HEADER OPERATION: Excision, cyst left post auricular cyst PRE-OP DIAGNOSIS: Other benign neoplasm skin/left ear and external auric canal TISSUE SUBMITTED: Left, auricular cyst MICROSCOPIC DIAGNOSIS Left auricular cyst, excision: Epidermal inclusion cyst. 03/27/2024 MICROSCOPIC DESCRIPTION Slides are reviewed. GROSS DESCRIPTION Received in fixative is one container labeled with the patient's name and designated Left auricular cyst. The specimen consists of a bob-white cyst measuring 1.5 x 1.0 x 0.7cm. A piece of skin is noted on the surface measuring 0.6 x 0.1cm. The cyst is serially sectioned and filled with bob-brown cheesy material. The entire specimen is submitted in one cassette. 03/26/2024 TC:5 CPT:39541
--- NOTE | 2024-03-26 07:31 | PCM.DC.SUM ---
Providers Primary Care Physician: Dr. Brent Conde MD Reason For Visit: Excision, Cyst left post auricular cyst Medications at Discharge Home Medications albuterol sulfate 90 mcg/actuation aerosol inhaler (Ventolin HFA) 2 puff inhalation Q4H PRN PRN sob #8.5 grams 11/30/21 diazepam 2 mg tablet (Valium) 2 mg PO QHS PRN muscle spasm #10 tabs 12/12/21 gabapentin 300 mg capsule 300 mg PO BID 02/27/24 lurasidone 40 mg tablet 40 mg PO DAILY 02/27/24 prazosin 1 mg capsule 1 mg PO QHS 02/27/24 Weight / BMI Weight Weight: 78 kg Body Mass Index (BMI) 32.5 D/C Instructions Discharge Diet: No restrictions Additional Instructions: remove dressing tomorrow morning apply antibiotic ointment twice a day to the sutures Please Follow Up With: Miko Erwin MD When: end of next week Meaningful Use Info Meaningful Use Meaningful Use Diagnoses (Choose all that apply): None applicable Ischemic Stroke Statin Dosing Therapy Reference: STATIN DOSE THERAPY REFERENCE: * Patients > 75 years receive moderate or high dose statin therapy. * Patients 75 years or YOUNGER should receive HIGH intensity statin dose unless contraindicated. You will be required to document reason for non-treatment if statin daily dose does not meet guidelines. HIGH DOSE STATIN THERAPY DAILY Atorvastatin > than or = to 40 mg Rosuvastatin > than or = to 20 mg Amlodipine + Atorvastatin > than or = to 2.5/40 mg Ezetimibe + Simvastatin 10/80 mg Simvastatin 80mg Discharge Plan Admission Attending Provider: Miko Erwin Primary Care Provider: Brent Conde Instructions Print Language: Indonesian Discharge Orders/Prescriptions Prescriptions: No Action albuterol sulfate [Ventolin HFA] 90 mcg/actuation HFA aerosol inhaler 2 puff INHALATION Q4H PRN PRN (Reason: sob) Qty: 8.5 0RF diazepam [Valium] 2 mg tablet 2 mg PO QHS PRN (Reason: muscle spasm) Qty: 10 0RF prazosin 1 mg capsule 1 mg PO QHS gabapentin 300 mg capsule 300 mg PO BID lurasidone 40 mg tablet 40 mg PO DAILY Referrals / Follow Up: Brent Conde MD [Primary Care Provider] - Disposition Disposition (needs filled in before D/C Order can be placed): Home, Self Care
--- NOTE | 2024-03-26 07:34 | PCM.OPRPT ---
Report of Operation Date of Procedure: 03/26/24 Pre-Operative Diagnosis: left post auricular mass Post-Operative Diagnosis: same Surgery/Procedure Performed:: Excision post auricular mass Surgeon: Miko Erwin Type of Anesthesia: General Anesthesiologist: Javier Farr Estimated Blood Loss (mL): minimal Description of Procedure: Patient was taken to the operating room on 03/26/2024. She was placed in the supine position on the operating room table. She was given sufficient general anesthesia. The left ear was prepped and draped sterilely. 1% lidocaine with epinephrine injected to the skin surrounding the mass. An elliptical incision was made over the mass with a 15 blade. The incision was approximately 1.2 cm long. Dissection was carried down sharply to the mass. Hemostasis was achieved with bipolar cautery. I then used blunt and sharp dissection to dissect around the mass. The mass was delivered and sent for permanent section. Hemostasis was achieved with bipolar cautery. I then irrigated the wound with saline. Hemostasis was ensured. Next, I closed the subcutaneous layer with 4-0 Vicryl. The skin was closed with 6-0 nylon. A Magen dressing was applied. Patient was and awoken about the recovery room in stable condition blood loss minimal, replacement none. Sponge, needle, and instrument count correct at the end of the procedure.
[2024-03-26] MEDS: Lidocaine 1% /Epi 1:100 (50ml) 50 ML VIAL (07:56)
[2024-03-26] MEDS: BACITRACIN/POLYMYXIN B 15 GM Tube 1 APPLIC (08:15)
--- NOTE | 2024-03-26 08:28 | PCM.POST.ANE ---
Anesthesia: Postop Eval I Current Vital Signs Temperature: 97.6 F Pulse Rate: 76 Blood Pressure: 116/62 Respiratory Rate: 16 Pulse Ox: 99 Oxygen Delivery Method: Room Air Assessment Airway patent: Yes Spontaneous unlabored respirations: Yes Mental status: Awake and Calm nausea: No Vomiting: No Anesthesia Complication: No Fluid Hydration Crystalloid volume administer (ml): 500 Total IV fluid infused: 500 Progress Note Anesthesia document: Postop Eval 1 completed: Yes
--- NOTE | 2024-03-26 11:47 | PCM.POSTANE2 ---
Anesthesia Postop Eval I Sum Postop Eval Completion status Anesthesia document: Postop Eval 1 completed: Yes Anesthesia Postop Eval I Summary Anesthesia Postop Eval I Summary: Anesthesia Postop Eval I: Assessment Summary Airway patent Yes 03/26/24 08:30 Spontaneous unlabored Yes 03/26/24 08:30 respirations Mental status Awake,Calm 03/26/24 08:30 nausea No 03/26/24 08:30 Vomiting No 03/26/24 08:30 Anesthesia Postop Eval I: Fluid Summary Crystalloid volume administer 500 03/26/24 08:30 (ml) Colloids volume administered ( ml) Blood Product volume administered (ml) Total IV fluid infused 500 03/26/24 08:30 Anesthesia Postop Eval I: Summary Notes Anesthesia Complication No 03/26/24 08:30 Anesthesia Complication Comment: Post-operative progress note Anesthesia: Postop Eval II Evaluation Mental status: Awake Pain Level: 0 nausea: No Vomiting: No
== END 2024-03-26 09:26 | disposition home or self-care (01) ==
LOC: SDC 05:49 → AC 05:50
PROVIDERS: PCP Family Medicine; Referring Provider Otolaryngology; Visit Provider Otolaryngology
PROC: (CPT 21011; principal; 2024-03-26 07:20)
DX: L72.0 Epidermal cyst (principal); F17.210 Nicotine dependence, cigarettes, uncomplicated; J45.909 Unspecified asthma, uncomplicated; K21.9 Gastro-esophageal reflux disease without esophagitis
CPT/HCPCS: 21011; 00300; 88304; 94640; J7120; J2405

== ENCOUNTER 2024-08-23 09:17 | Emergency (ER) | payer MEDICARE, MEDICAID, SELFPAY ==
[2024-08-23 09:19] VITALS: BP 126/86; PULSE 111; RESP 18; TEMP 37; O2SAT 97; BMI 33.7
--- NOTE | 2024-08-23 09:28 | EX.ED.VIS.UR ---
HPI HPI - URI History of Present Illness Chief Complaint: Cold Sx Informant: patient and family Onset/Context/Timing Onset: Days Context: Gradual Onset Timing: Continuous Current Severity: Mild Maximum Severity: Mild Associated Symptoms Associated Symptoms: Positive for Nasal Congestion, Myalgias, Nausea, Shortness of Breath and Nonproductive cough; Negative for Vomiting or Diarrhea Narrative Narrative: 39-year-old female history of anxiety and borderline diabetes. Patient is a smoker. 3-day history of URI with fever as high as 102 nonproductive cough and wheezing. Patient is a smoker. Another female present in the room said she had similar symptoms the other day. Prior similar symptoms: Yes Recent Illness/Hospitalization: No ROS ROS ED ROS Narrative Nonproductive cough. Fever. Body aches. Wheezing and shortness of breath. Constitutional Constitutional ED: Reports fever(s) Eyes Eyes: Denies blurry vision ENT ENT ED: Denies ear pain Cardiovascular Cardiovascular: Denies chest pain Respiratory/Chest Respiratory/Chest: Reports cough and dyspnea Gastrointestinal Gastrointestinal: Denies abdominal pain Genitourinary Genitourinary ED: Denies dysuria or hematuria Musculoskeletal Musculoskeletal: Denies arthralgias Integumentary Denies abscess Neurologic Neurologic: Denies headache(s) Psychiatric Psychiatric: Reports anxiety Endocrine Endocrinology: Denies cold intolerance Hematologic/Lymphatic Hematologic/Lymphatic: Reports easy bleeding Allergic/Immunologic Allergic/Immunologic ED: Denies mouth swelling, tongue swelling or urticaria [facility] Medical History Wears glasses Post-menopausal Depression History of steroid therapy Back pain Injury of head and neck Gastric reflux Smoker Asthma Leg cramps History of pain when walking History of edema Bulging disc Bipolar 2 disorder Back pain Migraine Panic attack Anxiety Home Medications ?Medication ?Instructions ?Recorded ?Last Taken ?Type albuterol sulfate 90 mcg/actuation 2 puff inhalation Q4H PRN PRN sob 11/30/21 03/25/24 Rx aerosol inhaler (Ventolin HFA) #8.5 grams diazepam 2 mg tablet (Valium) 2 mg PO QHS PRN muscle spasm #10 12/12/21 03/25/24 Rx tabs gabapentin 300 mg capsule 300 mg PO BID 02/27/24 03/25/24 History lurasidone 40 mg tablet 40 mg PO DAILY 02/27/24 03/25/24 History prazosin 1 mg capsule 1 mg PO QHS 02/27/24 03/25/24 History albuterol sulfate 90 mcg/actuation 1 - 2 puff inhalation Q4H PRN PRN 08/23/24 Unknown Rx aerosol inhaler (Ventolin HFA) Wheezing 1 week #1 device azithromycin 250 mg tablet See Rx Instructions PO .COMPLEX #6 08/23/24 Unknown Rx (Zithromax) tabs prednisone 20 mg tablet 40 mg (2 x 20 mg) PO DAILY 7 days 08/23/24 Unknown Rx #14 tabs Allergy/AdvReac Type Severity Reaction Status Date / Time Sulfa (Sulfonamide Allergy Rash Verified 08/23/24 11:04 Antibiotics) Surgical History Hx of surgical procedure History of tonsillectomy and adenoidectomy Hx of hysterectomy Social History Smoking Status: Current every day smoker tobacco type: cigarettes EXAM Physical Exam Narrative Exam Narrative: EENT exam pupils round reactive light. TMs normal. Posterior pharynx moist and pink. No trouble breathing or swallowing.39-year-old female sitting upright in bed. Vital signs are stable she is afebrile currently. Pulse ox 97% on room air no signs of hypoxia. No significant distress she does have wheezing. HEENT exam Pupils are round reactive light. Extra motions are intact. Posterior pharynx moist and pink. No trouble swallowing. No stridor. TMs normal. Neck nontender no lymphadenopathy. Lungs Expiratory wheezing bilaterally. No rales or rhonchi. Equal symmetrical. Heart Regular rhythm rate about 110 no murmur. Chest wall ribs nontender. Abdomen soft nontender. Back nontender. Moving all 4 extremities. Normal strength. Calves are nontender without edema. No cords. Neurologically she is awake and alert. Const Vital Signs: 08/23/24 09:19 08/23/24 09:49 Temperature 98.6 F Temperature Source Oral Pulse Rate 111 H 108 H Respiratory Rate 18 16 Blood Pressure 126/86 H Blood Pressure Mean 99 Pulse Ox 97 Oxygen Delivery Method Room Air Positive well developed; Negative for cachectic or contractures General Appearance ED: well developed and NAD; Negative for cachectic, contractures, cyanotic or diaphoretic Nutritional Appearance: Negative for cachectic HEENT Reports moist mucous membranes normocephalic Throat: posterior oropharynx normal Eyes PERRL and EOMs intact bilaterally Neck no lymphadenopathy, supple, no meningeal signs and no JVD General: Negative for anterior neck swelling or lymphadenopathy Resp normal respiratory effort and No clear to auscultation bilaterally Resp Narrative: Bilateral expiratory wheezes. Auscultation: wheezes Cardio S1 normal heart sound, S2 normal heart sound and no murmurs Rate: tachycardic Rhythm: regular rhythm GI non-tender, non-distended and no masses Palpation: soft; Negative for tender or guarding Back/Spine no CVA tenderness and normal ROM General Back: Negative for CVA tenderness Cervical Spine: Negative for cervical spine tenderness Thoracic Spine / Upper Back: Negative for thoracic spinal tenderness Lumbar Spine / Lower Back: Negative for lumbar spinal tenderness Sacrum: Negative for tenderness Extremity normal to inspection and full ROM General Extremety ED: Negative for cyanosis or tenderness General Extremity: Negative for cyanosis Neuro oriented x3 and CN's II-XII intact bilaterally Sensorium / Orientation: alert, oriented to person, oriented to place and oriented to time; Negative for orientation impaired, lethargic or stuporous Motor Exam: strength 5/5 throughout Psych mental status grossly normal Appearance: Negative for other Attitude: No agitated Mood & Affect: anxious; Negative for depressed Skin General Skin Exam: Negative for jaundice Lesions: no lesions Rashes: no rashes MDM MDM MDM Narrative Medical decision making narrative: 39-year-old female URI suspect viral most likely influenza. COVID and flu testing. Chest x-ray to rule out pneumonia. Prednisone orally and DuoNeb aerosol for her wheezing. I do not think she needs any blood work. Repeat exam at 11:19 AM. Patient improved after the steroids and aerosol treatment. Patient document discharged home. She was placed on prednisone 40 mg a day for 1 week. Refill of her inhaler. I will write her for Zithromax I told her to wait and see how she is feeling hopefully she progressively improve discussed most likely this is viral if not she can start antibiotic. History & Record Review Discussion w/independent historian: Family Additional record(s) reviewed:: Prior inpatient record, Prior outpatient record, Prior ED visit and Prior labs Lab Data Attestation: I reviewed the patient's lab results. Lab results narrative: COVID, flu and RSV are negative. Radiography Chest X-Ray - ED: 2 View, Read by ED Physician, Normal, Heart, Lungs, Mediastinum, Bony Structures, No Acute Disease and Chronic Changes Diagnostic Testing: Clinical Impression(s) from Imaging Studies Chest X-Ray 08/23/24 10:00 IMPRESSION: No active cardiopulmonary disease.. Reading Location: [place] [id number] Chest x-ray, 2 views, AP and lateral, interpreted by myself shows no acute abnormality. Normal cardiac silhouette. Normal lung renteria. No pneumonia. No effusions. Discharge Plan Triage Chief Complaint: Cold Sx ED Provider: Kel Garcia Dx/Rx/DC Orders Clinical Impression: Bronchitis, Bilateral wheezing Instructions: ED Bronchitis with Wheezing (Adult) Prescriptions: New prednisone 20 mg tablet 40 mg PO DAILY 7 Days Qty: 14 0RF albuterol sulfate [Ventolin HFA] 90 mcg/actuation HFA aerosol inhaler 1 - 2 puff inhalation Q4H PRN PRN (Reason: Wheezing) 7 Days Qty: 1 1RF azithromycin [Zithromax] 250 mg tablet See Rx Instructions .ROUTE .COMPLEX Qty: 6 0RF Rx Instructions: For 250 mg dose pack: take 500 mg today (day 1), then 250 mg for 4 days (days 2-5) No Action albuterol sulfate [Ventolin HFA] 90 mcg/actuation HFA aerosol inhaler 2 puff INHALATION Q4H PRN PRN (Reason: sob) Qty: 8.5 0RF diazepam [Valium] 2 mg tablet 2 mg PO QHS PRN (Reason: muscle spasm) Qty: 10 0RF prazosin 1 mg capsule 1 mg PO QHS gabapentin 300 mg capsule 300 mg PO BID lurasidone 40 mg tablet 40 mg PO DAILY Primary Care Provider: Brent Conde Referrals: Brent Conde MD [Primary Care Provider] - 1 Week if not improving Activity Restrictions/Additional Instructions: Respiratory infection causing you wheezing. Most likely it is viral. Take the steroids 40 mg a day for a week starting tomorrow that will help decrease inflammation in your lungs and decrease the wheezing. Use your inhaler 1 to 2 puffs every 4 hours as needed for wheezing and shortness of breath. Given several more days if you are not improving start antibiotic Zithromax. Follow-up with . Your doctor if not improving. Print Language: Mauritian Disposition Disposition: Home, Self Care
[2024-08-23] MEDS: Ipratropium/Albuterol Sulfate 3 ML AMPUL.NEB INHALATION (09:46)
[2024-08-23] MEDS: predniSONE 20 MG Tablet 60 MG PO (09:46)
[2024-08-23 09:49] VITALS: PULSE 108; RESP 16
--- NOTE | 2024-08-23 10:00 | RAD_ITS ---
PROCEDURE: CHEST PA AND LATERAL REASON FOR EXAM: Cough. TECHNIQUE: Frontal and lateral views of the chest. COMPARISON: None. FINDINGS: Lungs: Lungs clear of pneumonia and congestion. Pleura: No pleural effusions, thickening, or pneumothorax. Heart: Normal in size and configuration. Mediastinum/[place]: Unremarkable. Great vessels: Unremarkable. Bones/soft tissues: Unremarkable. RAD/Chest PA and Lateral IMPRESSION: No active cardiopulmonary disease.. Reading Location: [place] [id number]
[2024-08-23 11:49] VITALS: BP 133/82; PULSE 87; RESP 18; O2SAT 98
== END 2024-08-23 11:50 | disposition home or self-care (01) ==
PROVIDERS: Emergency Provider Emergency Medicine; PCP Family Medicine; Visit Provider Emergency Medicine
DX: J40 Bronchitis, not specified as acute or chronic (principal); F17.210 Nicotine dependence, cigarettes, uncomplicated; K21.9 Gastro-esophageal reflux disease without esophagitis; R06.2 Wheezing
CPT/HCPCS: 71046; 87631; 94640; 99282

== ENCOUNTER 2025-06-13 19:30 | Emergency (ER) | payer MEDICARE, MEDICAID, SELFPAY ==
[2025-06-13 19:31] VITALS: BP 145/118; PULSE 85; RESP 18; TEMP 36.8; O2SAT 96
--- NOTE | 2025-06-13 20:00 | EDS_ITS ---
HPI History of Present Illness Chief Complaint: Nausea/Vomiting Informant: patient and family Onset/Context/Timing Onset: Days Context: Gradual Onset Timing: Continuous Current Severity: Moderate Maximum Severity: Moderate Narrative Narrative: 40-year-old female history of migraine headaches, bipolar, anxiety. States she has had a left-sided headache behind her left eye and for about 3 days and started having nausea vomiting. No diarrhea. Low-grade fever 100. No head trauma. She is on no blood thinners. Denies any dysuria. No diarrhea. Prior similar symptoms: Yes Recent Illness/Hospitalization: No PFSH PFSH Medical History Wears glasses Post-menopausal Depression History of steroid therapy Back pain Injury of head and neck Gastric reflux Smoker Asthma Leg cramps History of pain when walking History of edema Bulging disc Bipolar 2 disorder Back pain Migraine Panic attack Anxiety Home Medications ?Medication ?Instructions ?Recorded ?Last Taken ?Type albuterol sulfate 90 mcg/actuation 2 puff inhalation Q 4H PRN PRN sob 11/30/21 03/25/24 Rx aerosol inhaler (Ventolin HFA) #8.5 grams diazepam 2 mg tablet (Valium) 2 mg PO QHS PRN muscle s pasm #10 12/12/21 03/25/24 Rx tabs gabapentin 300 mg capsule 300 mg PO BID 02/27/2403/25 History lurasidone 40 mg tablet 40 mg PO DAILY 02/27/2412/11 History prazosin 1 mg capsule 1 mg PO QHS 02/27/24 4 History azithromycin 250 mg tablet See Rx Instructions PO .COM PLEX #6 08/23/24 Unknown Rx (Zithromax) tabs prednisone 20 mg tablet 40 mg (2 x 20 mg) PO DAILY 7 days 08/23/24 Unknown Rx #14 tabs Allergy/AdvReac Type Severity Reaction Status Date / Time Sulfa (Sulfonamide Allergy Rash Verified 06/13/25 19:30 Antibiotics) Surgical History Hx of surgical procedure History of tonsillectomy and adenoidectomy Hx of hysterectomy Social History housing: house Smoking Status: Current every day smoker tobacco type: cigarettes ROS ROS ED ROS Narrative Headache. Nausea vomiting. Anxiety. Constitutional Constitutional ED: Reports fever(s) and subjective Eyes Eyes: Denies blurry vision ENT ENT ED: Denies ear pain, rhinorrhea or sore throat Cardiovascular Cardiovascular: Denies chest pain or palpitations Respiratory/Chest Respiratory/Chest: Denies cough or dyspnea Gastrointestinal Gastrointestinal: Reports nausea and vomiting; Denies abdominal pain or diarrhea Genitourinary Genitourinary ED: Denies dysuria, hematuria or urinary frequency Musculoskeletal Musculoskeletal: Denies arthralgias Integumentary Denies abscess Neurologic Neurologic: Reports headache(s); Denies paresthesias or weakness Psychiatric Psychiatric: Reports anxiety Endocrine Endocrinology: Denies cold intolerance, heat intolerance, polydipsia or polyphagia Hematologic/Lymphatic Hematologic/Lymphatic: Reports none Allergic/Immunologic Allergic/Immunologic ED: Denies mouth swelling, tongue swelling or urticaria EXAM Physical Exam Narrative Exam Narrative: 40-year-old female sitting upright in bed family member present. Vital signs are stable blood pressure is elevated 145 or 118 out of be rechecked. H EENT e xam pupils round react light. Extra motions are intact. No signs of trauma. No facial droop. Normal speech. Moist mucous membranes. No frontal or maxillary sinus tenderness. Posterior pharynx unremarkable. Neck nontender no lymphadenopathy. No meningismus. Able flex chin to chest. Back nontender. Lungs clear to auscultation bilaterally. Heart regular rhythm rate about 85 no murmur. Chest wall ribs nontender. Abdomen soft nontender normal bowel sounds without peritoneal signs. Patient moving all 4 extremities. Normal management trainee program stores strength. Normal dorsi plantarflexion. Nontender no edema. Skin unremarkable. Back nontender. Neurologically she is awake alert. Answering questions following commands. NIH 0. She is very anxious and shaking. Const Vital Signs: 06/13/25 19:31 06/13/25 19:41 Temperature 98.3 F Temperature Source Oral Pulse Rate 85 Respiratory Rate 18 Respiratory Effort Normal Non-Labored Respiratory Pattern Normal Blood Pressure 145/118 H Blood Pressure Mean 127 Pulse Ox 96 Oxygen Delivery Method Room Air MDM MDM MDM Narrative Medical decision making narrative: 40-year-old female history of migraines with nausea and vomiting. Exam and history is consistent with a migraine. CT of her brain will be obtained. Should be treat with IV fluids, Toradol, Benadryl, Compazine and Ativan. Screening labs to be obtained. Due to the several day history of nausea and vomiting. Repeat exam around 9:12 PM. The patient doing well. We went over her test results. Labs and CAT scan were unremarkable. Fluids and rest. Zofran as needed for nausea. History & Record Review Discussion w/independent historian: Patient and Family Additional record(s) reviewed:: Prior outpatient record, Prior ED visit and Prior labs Lab Data Attestation: I reviewed the patient's lab results. Lab results narrative: CBC shows a white count of 10 H&H is 16 and 48. Platelets 184. Electrolytes unremarkable gap 13. BUN and creatinine 9 and 0.9. Glucose 139. Labs: Laboratory Results - last 24 hr 06/13/25 20:12 WBC 10.1 RBC 5.44 H Hgb 16.3 H Hct 48.3 H MCV 88.8 MCH 30.0 MCHC 33.7 RDW Std Deviation 41.4 RDW Coeff of Jarod 12.7 Plt Count 184 MPV 11.5 Immature Gran % (Auto) 0.400 Neut % (Auto) 60.0 Lymph % (Auto) 31.7 [place] % (Auto) 4.2 Eos % (Auto) 3.1 Baso % (Auto) 0.6 Absolute Neuts (auto) 6.1 Absolute Lymphs (auto) 3.20 Nucleated RBC % 0 Sodium 137 Potassium 3.7 Chloride 102 Carbon Dioxide 22.6 Anion Gap 13 BUN 9 Creatinine 0.94 Est GFR (MDRD) Non-Af 79 BUN/Creatinine Ratio 10.1 Glucose 139 H Calcium 10.0 Radiography Diagnostic Testing: Clinical Impression(s) from Imaging Studies Brain CT 06/13/25 20:10 IMPRESSION: No CT evidence of acute intracranial hemorrhage, infarct, or significant mass effect. Reading Location: [id number] Discharge Plan Triage Chief Complaint: Nausea/Vomiting Other Complaint: Fever ED Provider: Kel Garcia Dx/Rx/DC Orders Prescriptions: No Action albuterol sulfate [Ventolin HFA] 90 mcg/actuation HFA aerosol inhaler 2 puff INHALATION Q4H PRN PRN (Reason: sob) Qty: 8.5 0RF diazepam [Valium] 2 mg tablet 2 mg PO QHS PRN (Reason: muscle spasm) Qty: 10 0RF prazosin 1 mg capsule 1 mg PO QHS gabapentin 300 mg capsule 300 mg PO BID lurasidone 40 mg tablet 40 mg PO DAILY prednisone 20 mg tablet 40 mg PO DAILY 7 Days Qty: 14 0RF azithromycin [Zithromax] 250 mg tablet See Rx Instructions .ROUTE .COMPLEX Qty: 6 0RF Rx Instructions: For 250 mg dose pack: take 500 mg today (day 1), then 250 mg for 4 days (days 2-5) Primary Care Provider: Brent Conde Referrals: Brent Conde MD [Primary Care Provider, Family Practice] Print Language: Citizen [place]
--- OUTSIDE RECORDS SUMMARY | 2025-06-13 20:01 | XMS RPT_ITS | CCD ---
Author Organization [facility] Care Team Providers Care Director [employer] Name Role Phone Guille Conde MD Primary Care Provider Dr. Yohannes Downey Primary Care Provider Dr. Main Carvajal Attending Provider Dr. Kel Garcia Referring Provider Guille Conde MD Primary Care Provider Guille Conde MD Primary Care Provider Guille Conde MD Primary Care Provider [place] AMBULATORY CARE COORDINATOR.Caryn JIMENEZ Unavailable [place] AMBULATORY CARE COORDINATOR.Clara JIEMNEZ Unavailable Brent Conde Primary Care Unavailable Miko Erwin Attending Unavailable Miko Erwin Referring Unavailable Kel Garcia Attending Unavailable Brent Conde Primary Care Unavailable Dr. Brent Conde MD Primary Care Provider Dr. Kel Garcia MD Emergency Provider [place] AMBULATORY CARE COORDINATOR.Clara JIMENEZ Unavailable [place] AMBULATORY CARE COORDINATOR.Clara JIMENEZ Unavailable [place] AMBULATORY CARE COORDINATOR.Clara JIMENEZ Unavailable GUILLE CONDE Primary Care Unavailab KINSEY Ghotra Referring Unavailable KINSEY LEVINE Attending Unavailable GUILLE CONDE Primary Care Unavailab KINSEY Ghotra Referring Unavailable KINSEY LEVINE Attending Unavailable KINSEY LEVINE Attending Unavailable GUILLE CONDE Primary Care Unavailab KINSEY Ghotra Referring Unavailable KINSEY LEVINE Attending Unavailable KINSEY LEVINE Referring Unavailable GUILLE CONDE Primary Care Unavailab MIKO Lim Attending Unavailable GUILLE CONDE Primary Care Unavailab KINSEY Ghotra Attending Unavailable GUILLE CONDE Primary Care Unavailab GUILLE Boo Primary Care Unavailab KINSEY Ghotra Referring Unavailable GUILLE CONDE Primary Care Unavailab KINSEY hGotra Attending Unavailable GUILLE CONDE Primary Care Unavailab le GUILLE CONDE Primary Care Unavailab KINSEY Ghotra Attending Unavailable GUILLE CONDE Primary Care Unavailab KINSEY Ghotra Referring Unavailable KINSEY LEVINE Attending Unavailable Allergies Allergy Classification Reported Allergen(s) Allergy Type Date of Onset Reaction(s) Facility Cats (2 sources) Cat Animal Allergy (Dander) 9 [facility] dog hair extract (2 sources) dog hair extract Drug Allergy 9 Anaphylaxis [facility] Sulfonamides (antibiotic) (2 sources) Sulfonamides (Antibiotic) Drug Allergy 9 [facility] (20 sources) Sulfonamides (Antibiotic); Translations: [Sulfa (Sulfonamide Antibiotics)] Allergy to substance 9 [facility] (20 sources) Cat; Translations: [CATS] Propensity to adverse reactions 9 [facility] Work Phone: (20 sources) dog hair extract; Translations: [DOG HAIR] Drug Allergy 9 Anaphylaxis [facility] Work Phone: Medications Current Medications Medication Drug Class(es) Dates Sig (Normalized) Sig (Original) acetaminophen 500 mg oral tablet (2 sources) Start: 10-07-2021 take 1 tablet by mouth every six hours Acetaminophen (Tylenol Ex Str Rapid Release) 500 mg Tablet Active 500 MG PO EVERY 6 HOURS October 07, 2021 1:30pm [id number] 200 actuat albuterol 0.09 mg/actuat metered dose inhaler (20 sources) beta2-Adrenergic Agonist Start: 02-29-2024 take 2 puff(s) by inhalation every four hours as needed for wheezing albuterol HFA (PROVENTIL HFA, VENTOLIN HFA) 90 mcg/actuation inhaler Inhale 2 Puffs as instructed every 4 hours as needed for wheezing/shortness of breath. 1 Each 02/29/2024 Active Start: 11-24-2023 End: 02-29-2024 take 2 puff(s) by inhalation every four hours as needed for wheezing albuterol HFA (PROVENTIL HFA, VENTOLIN HFA) 90 mcg/actuation inhaler Inhale 2 Puffs as instructed every 4 hours as needed for wheezing/shortness of breath. 8 g 11/24/2023 02/29/2024 Discontinued (Course of therapy completed) Start: 11-30-2021 take 1 puff(s) by in halation every four hours as needed Albuterol Sulfate (Ventolin Hfa) 90 mcg/actuation HFA aerosol inhaler Active 2 PUFF INHALATION EVERY 4 HOURS NEEDED 8.5 November 30, 2021 11:57pm Start: 11-30-2021 End: 11-30-2021 take 1 puff(s) by inhalation every four hours as needed Albuterol Sulfate (Ventolin Hfa) 90 mcg/actuation HFA aerosol inhaler Discontinued 2 PUFF INHALATION EVERY 4 HOURS NEEDED November 30, 2021 9:03pm November 30, 2021 11:57pm Start: 11-30-2021 End: 11-30-2021 Albuterol Sulfate (Ventolin Hfa) 90 mcg/actuation HFA aerosol inhaler Active 1 - 2 NMA INHALATION EVERY 4 HOURS NEEDED as needed for Wheezing 1 7 August 23, 2024 12:00am August 29, 2024 11:00pm Start: 11-30-2021 End: 11-30-2021 take 1 puff(s) by inhalation every four hours as needed Albuterol Sulfate (Ventolin Hfa) 90 mcg/actuation HFA aerosol inhaler Active 2 PUFF INHALATION EVERY 4 HOURS NEEDED 8.5 November 30, 2021 11:57pm Start: 07-21-2021 End: 02-29-2024 take 1-2 puff(s) by inhalation every four hours as needed albuterol HFA (PROAIR HFA) 90 mcg/actuation inhaler Indications: Sinobronchitis Inhale 1-2 Puffs as instructed every 4 hours as needed. 1 Inhaler 07/21/2021 02/29/2024 Discontinued (Course of therapy completed) Comment on above: Inhale 1-2 Puffs as instructed every 4 hours as needed. azithromycin 250 mg oral tablet (1 source) Macrolide Antimicrobial Start: 08-24-19 Azithromycin (Zithromax) 250 mg tablet Active 0 PO .COMPLEX August 23, 2024 12:00am For 250 mg dose pack: take 500 mg today (day 1), then 250 mg for 4 days (days 2-5) brexpiprazole 1 mg oral tablet (9 sources) Atypical Antipsychotic Start: 01-08-20 End: 04-29-20 brexpiprazole (REXULTI) 1 mg tablet Indications: Bipolar 2 disorder (HCC) Take 1 tablet by mouth once daily. For bipolar 2 depression 30 tablet 1 02/28/2025 04/29/2025 Active diazePAM 5 mg oral tablet (20 sources) Benzodiazepine Start: 02-12-20 End: 03-13-20 take 1 tablet by mouth twice daily as needed for anxiety diazePAM (VALIUM) 5 mg tablet Indications: ZAIRE (generalized anxiety disorder) Take 1 tablet by mouth two times a day as needed for anxiety or muscle spasm for up to 30 days. 60 tablet 02/11/2025 03/13/2025 Active Start: 11-19-2024 End: 12-19-2024 take 1 tablet by mouth once daily as needed for anxiety diazePAM (VALIUM) 5 mg tablet Indications: ZAIRE (generalized anxiety disorder) Take 1 tablet by mouth once daily as needed for anxiety for up to 30 days. 30 tablet 11/19/2024 12/19/2024 Active Start: 09-24-2024 End: 10-24-2024 take 1 tablet by mouth once daily as needed for anxiety diazePAM (VALIUM) 5 mg tablet Indications: ZAIRE (generalized anxiety disorder) Take 1 tablet by mouth once daily as needed for anxiety for up to 30 days. 30 tablet 09/24/2024 10/24/2024 Active Start: 07-23-2024 End: 08-22-2024 take 1 tablet by mouth once daily as needed for anxiety diazePAM (VALIUM) 5 mg tablet Indications: ZAIRE (generalized anxiety disorder) Take 1 tablet by mouth once daily as needed for anxiety for up to 30 days. 30 tablet 07/23/2024 08/22/2024 Active Start: 10-21-2023 End: 11-20-2023 take 1 tablet by mouth once daily [...] 30 tablet 1 06/30/2022 07/30/2022 Active Start: 12-12-2021 End: 05-08-2022 take 1 tablet by mouth once daily as needed for anxiety diazePAM (VALIUM) 2 mg tablet Indications: ZAIRE (generalized anxiety disorder) Take 1 tablet by mouth once daily as needed for anxiety for up to 10 days. 30 tablet 0 04/28/2022 05/08/2022 Active Comment on above: Take 1 tablet by riri th once daily as needed for anxiety for up to 10 days. Take by mouth. Take 1 tablet by riri th once daily as needed for anxiety for up to 30 days. dicyclomine hydrochloride 10 mg oral capsule (20 sources) Anticholinergic Start: 02-01-2022 dicyclomine (BENTYL) 10 mg capsule TAKE 1 CAPSULE THREE TIMES DAILY BEFORE MEALS 02/01/2022 Active Start: 02-01-2022 take 20 mg by mouth three times daily before mealtime Dicyclomine Active 20 MG PO THREE TIMES DAILY BEFORE MEALS February 01, 2022 12:00am Comment on above: TAKE 1 CAPSULE THREE TIMES DAILY BEFORE MEALS gabapentin 400 mg oral capsule (20 sources) Anti-epileptic Agent Start: 11-19-2024 End: 04-12-2025 take 1 capsule by mouth three times daily gabapentin (NEURONTIN) 400 mg capsule Take 1 capsule by mouth three times a day for 60 days. 90 capsule 1 02/11/2025 04/12/2025 Active Start: 07-23-2024 End: 11-23-2024 take 1 capsule by mouth three times daily gabapentin (NEURONTIN) 300 mg capsule Take 1 capsule by mouth three times a day for 60 days. 90 capsule 1 09/24/2024 11/19/2024 Discontinued Start: 2024 End: 07-23-2024 take 1 capsule by mouth twice daily Gabapentin 300 mg capsule Active 300 mg PO TWICE A DAY February 26, 2024 11:00pm Start: 10-21-2023 End: 2024 take 1 capsule [...] 60 capsule 1 04/28/2022 05/28/2022 Active Start: 11-30-2021 take 300 mg by mouth once eric y Gabapentin Active 300 MG PO DAILY November 30, 2021 12:00am Start: 11-27-2021 End: 12-27-2021 take 1 capsule by mouth twice daily gabapentin (NEURONTIN) 300 mg capsule Take 1 capsule by mouth twice daily for 30 days. 60 capsule 1 11/27/2021 12/27/2021 Active Comment on above: Take 1 capsule by mo uth twice daily for 30 days. Take 1 capsule by mo uth three times daily for 30 days. Take 1 capsule by mo uth three times daily for 60 days. Take [...] dose. 1 Each 0 11/24/2023 11/24/2023 Active prazosin 1 mg oral capsule (20 sources) alpha-Adrenergic Leonard Start: 11-28-2023 End: 05-11-2024 take 1 capsule by mouth once daily at bedtime prazosin (MINIPRESS) 1 mg cap Take 1 capsule by mouth daily at bedtime. 30 capsule 1 03/12/2024 05/11/2024 Active Start: 10-21-2023 End: 11-20-2023 take 1 [...] on above: Take 1 capsule by mo uth daily at bedtime. predniSONE 20 mg oral tablet (15 sources) Start: 08-23-2024 take 2 tablets by mouth once daily Prednisone 20 mg tablet Active 40 mg PO DAILY 14 August 23, 2024 12:00am Start: 11-24-2023 End: 03-12-2024 predniSONE (DELTASONE) 10 mg tablet Take 4 tabs daily for 3 days, then 2 tabs daily for 3 days, then 1 tab daily for 3 days with food. 21 tablet 11/24/2023 03/12/2024 Discontinued (Course of therapy completed) Start: 11-09-2021 take 40 mg by mouth once daily Prednisone Active 40 MG PO DAILY 03 24November 09, 2021 4:00am 24 hr venlafaxine 75 mg extended release oral capsule (8 sources) Serotonin and Norepinephrine Reuptake Inhibitor Start: 10-16-2021 End: 12-27-2021 take 75 mg by mouth once daily Venlafaxine Active 75 MG PO DAILY November 30, 2021 12:00am Comment on above: Take 1 capsule by mo [facility] daily with food. Completed/Discontinued Medications Medication Drug Class(es) Dates Sig (Normalized) Sig (Original) acetaminophen 325 mg / HYDROcodone bitartrate 5 mg oral tablet (13 sources) Opioid Agonist Start: 08-15-2021 End: 04-04-2023 HYDROcodone-acetami nophen (NORCO) 5-325 mg per tablet EVERY 6 HOURS 0 08/15/2021 04/04/2023 Discontinued (Discontinued by Patient) Start: 08-15-2021 take 1 tablet by riri th every six hours Hydrocodone-Acetaminophen Active 1 TABLE T PO EVERY 6 HOURS 10 August 15, 2021 12:37pm Comment on above: EVERY 6 HOURS amoxicillin 875 mg / clavulanate 125 mg oral tablet (5 sources) Penicillin-class Antibacterial Start: End: take 1 tablet by mouth twice daily amoxicillin-clavula rich potassium (AUGMENTIN) 875-125 mg per tablet Take 1 tablet by mouth two times a day for 7 days. 14 tablet 11/24/2023 12/01/2023 benzonatate 100 mg oral capsule (2 sources) Non-narcotic Antitussive Start: End: take 1 capsule by mouth every eight hours as needed benzonatate (TESSALON PERLES) 100 mg capsule Take 1 capsule by mouth three times a day as needed for cough. 21 capsule 02/29/2024 03/12/2024 Discontinued (Cost of medication) brompheniramine maleate 0.4 mg/ml / dextromethorphan hydrobromide 2 mg/ml / pseudoephedrine hydrochloride 6 mg/ml oral solution (5 sources) alpha-Adrenergic Agonist, Uncompetitive U-zxjpff-T-aspartate Receptor Antagonist, Sigma-1 Agonist Start: End: take 5 mL by mouth every six hours as needed Brompheniramine-Pse udoeph-DM (BROMFED DM) 2-30-10 mg/5 mL syrup Take 5 mL by mouth four times a day as needed. 118 mL 11/24/2023 11/28/2023 Discontinued (Cost of medication) ibuprofen 800 mg oral tablet (9 sources) Nonsteroidal Anti-inflammatory Drug Start: 015 End: 016 take 1 tablet by mouth three times daily as needed for pain Ibuprofen (Motrin) 800 MG tablet Discontinued 800 mg PO 3 TIMES DAILY NEEDED as needed for Pain 60 June 19, 2015 12:00am September 08, 2015 1:27pm lamoTRIgine 25 mg oral tablet (3 sources) Mood Stabilizer, Anti-epileptic Agent Start: End: take 1 tablet by mouth once daily lamoTRIgine (LAMICTAL) 25 mg tablet Take 1 tablet by mouth once daily. 0 10/19/2021 11/27/2021 Discontinued (Lack of Efficacy) Start: 08-15-2021 take 75 mg by mouth once daily Lamotrigine Active 75 MG PO DAILY August 15, 2021 10:04am Comment on above: Take 1 tablet by riri th once daily. lidocaine 0.05 mg/mg medicated patch (14 sources) Antiarrhythmic, Amide Local Anesthetic Start: 02-06-20 End: 02-27-20 lidocaine (LIDODERM) 5 % Apply to affected area. 0 02/05/2022 04/04/2023 Discontinued (Course of therapy completed) Comment on above: Apply to affected ar ea. lurasidone hydrochloride 40 mg oral tablet (20 sources) Atypical Antipsychotic Start: 10-21-19 24 End: 01-19-20 take 1 tablet by mouth once daily at mealtime lurasidone (LATUDA) 40 mg tablet Take 1 tablet by mouth daily with food. Take with atleast 300 calories. 30 tablet 1 11/19/2024 01/07/2025 Discontinued (Other) Start: 10-21-2023 End: 11-28-2023 take 1 tablet by mouth once daily at mealtime lurasidone (LATUDA) 20 mg tablet Take 1 tablet by mouth daily with food for 7 days. Take with atleast 300 calories a day. 7 tablet 10/21/2023 11/28/2023 Discontinued (Course of therapy completed) meclizine hydrochloride 25 mg oral tablet (12 sources) Antiemetic Start: 12-12-2021 End: 04-04-2023 meclizine (ANTIVERT) 25 mg tab Take by mouth. 0 12/12/2021 04/04/2023 Discontinued (Discontinued by Patient) Comment on above: Take by mouth. metoclopramide 10 mg oral tablet (3 sources) Dopamine-2 Receptor Antagonist Start: 02-01-2022 End: 04-28-2022 take 1 tablet by mouth four times daily as needed for headache metoclopramide HCl (REGLAN) 10 mg tablet TAKE 1 TABLET BY MOUTH FOUR TIMES DAILY NEEDED FOR HEADACHE 0 02/01/2022 04/28/2022 Discontinued (Course of therapy completed) Comment on above: TAKE 1 TABLET BY RIRI FOUR TIMES DAILY NEEDED FOR HEADACHE OLANZapine [...] tablet by riri th daily at bedtime. ondansetron 4 mg disintegrating oral tablet (4 sources) Serotonin-3 Receptor Antagonist Start: 06-11-20 End: 02-27-20 take 1 tablet by mouth every eight hours as needed for nausea and vomiting Ondansetron 4 mg tablet,disintegratin g Discontinued 4 mg PO Q8H as needed for nausea and vomiting June 11, 2022 12:00am February 27, 2024 9:11am Start: 11-27-2021 End: 12-27-2021 take 1 tablet by mouth every twelve hours as needed ondansetron orally disintegrating (ZOFRAN ODT) 4 mg disintegrating tablet Take 1 tablet by mouth every 12 hours as needed for nausea/vomiting. 60 tablet 0 11/27/2021 12/27/2021 Active Start: 08-15-2021 take 4 mg by mouth e very eight hours Ondansetron Active 4 MG PO Q8H August 15, 2021 12:39pm Comment on above: Take 1 tablet by riri th every 12 hours as needed for nausea/vomiting. promethazine hydrochloride 25 mg oral tablet (3 sources) Phenothiazine Start: 2021 End: 2023 take 1 tablet by mouth three times daily as needed for nausea and vomiting Promethazine 25 mg tablet Discontinued 25 mg PO THREE TIMES A DAY as needed for nausea and vomiting 07 01February 15, 2022 11:00pm February 27, 2024 9:11am SUMAtriptan 50 mg oral tablet (14 sources) Serotonin-1b and Serotonin-1d Receptor Agonist Start: 2019 End: 2022 SUMAtriptan (IMITREX) 50 mg tablet Indications: Migraine without aura and without status migrainosus, not intractable Take 1 tablet by mouth as needed for Migraine Headache (see administration instructions). 12 tablet 0 03/31/2020 04/04/2023 Discontinued (Discontinued by Patient) Comment on above: Take 1 tablet by riri as needed for Migraine Headache (see administration instructions). tiZANidine 4 mg oral capsule (12 sources) Central alpha-2 Adrenergic Agonist Start: 2021 End: 2023 take 1 capsule by mouth every eight hours as needed Tizanidine (Zanaflex) 4 mg capsule Discontinued 4 mg PO Q8H as needed for muscle spasticity February 04, 2022 11:00pm February 27, 2024 9:11am Comment on above: Take by mouth. triamcinolone acetonide 0.055 mg/actuat metered dose nasal spray (14 sources) Corticosteroid Start: 2021 End: 2022 take 2 spray(s) by inhalation once daily triamcinolone acetonide (NASACORT AQ) 55 mcg nasal inhaler Indications: Sinobronchitis Use 2 Sprays in the nose once daily. 16.9 mL 0 07/21/2021 04/04/2023 Discontinued (Course of therapy completed) Comment on above: Use 2 Sprays in the nose once daily. Problems Active Problems Problem Classification Problem Date Documented Date Episodic/Chronic Abdominal pain (5 sources) Abdominal pain; Translations: [Unspecified abdominal pain] 02-09-2022 Episodic Administrative/social admission (2 sources) Stress; Translations: [Other specified problems related to psychosocial circumstances] Onset: 03-15-2025 02-11-2025 Episodic Anxiety disorders (20 sources) Anxiety; Translations: [Anxiety disorder, unspecified] Onset: 04-27-2021 04-27-2021 Chronic Chronic obstructive pulmonary disease and bronchiectasis (10 sources) Bronchitis; Translations: [Bronchitis, not specified as acute or chronic] 08-23-2024 Episodic Coma; stupor; and brain damage (1 source) Daytime somnolence; Translations: [Somnolence] 01-18-2024 Episodic Deficiency and other anemia (2 sources) Hemoglobinopathy; 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-2023 Chronic Diseases of mouth; excluding dental (1 source) Painful mouth; Translations: [Other lesions of oral mucosa] Episodic Disorders of lipid metabolism (6 sources) Increased lipid; Translations: [Hyperlipidemia, unspecified] 01-11-2024 Chronic Headache; including migraine (9 sources) Migraine with aura; Translations: [Migraine with aura, not intractable, without status migrainosus] 01-31-2018 Chronic Headache; including migraine (13 sources) Headache; Translations: [Headache] 06-05-2019 Episodic Malaise and fatigue (1 source) Malaise and fatigue; Translations: [Other malaise] 04-04-2023 Episodic Miscellaneous mental health disorders (3 sources) Dream anxiety disorder; 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-2023 Chronic Miscellaneous mental health disorders (2 sources) Anxiety about body function or health; Translations: [Other symptoms and signs involving emotional state] 03-23-2024 Episodic Mood disorders (20 sources) Depressive disorder; Translations: [Depression] Onset: 10-28-2009 Resolved: 06-06-2012 11-06-2013 Chronic Nonspecific chest pain (20 sources) Chest pain; Translations: [Chest pain, unspecified] 10-15-2021 Episodic Other aftercare (4 sources) Patient encounter status; Translations: [Other prison (current) drug therapy] Episodic Other aftercare (6 sources) Long-term current use of drug therapy; Translations: [Other prison (current) drug therapy] 05-14-2024 Episodic Other aftercare (1 source) Other prison (current) drug therapy; Translations: [Encounter for long-term (current) use of medications] Onset: 02-11-2025 Episodic Other connective tissue disease (9 sources) Hand pain; Translations: [Pain in right hand] 05-10-2015 Episodic Other ear and sense organ disorders (2 sources) Lesion of external ear; Translations: [Other specified disorders of left external ear] 01-18-2024 Episodic Other liver diseases (4 sources) Elevated liver enzymes level; Translations: [Abnormal levels of other serum enzymes] 10-21-2023 Episodic Other lower respiratory disease (1 source) Cough; Translations: [Acute cough] 11-24-2023 Episodic Other lower respiratory disease (1 source) Dyspnea; Translations: [Shortness of breath] 08-23-2024 Episodic Other lower respiratory disease (1 source) Wheezing; Translations: [Wheezing] 08-23-2024 Episodic Other nervous system disorders (7 sources) Paresthesia; Translations: [Paresthesia of skin] 12-09-2021 Episodic Other nervous system disorders (2 sources) H/O: migraine; Translations: [Personal history of other diseases of the nervous system and sense organs] 03-23-2022 Episodic Other nutritional; endocrine; and metabolic disorders (7 sources) Metabolic syndrome X; Translations: [Metabolic syndrome] 10-21-2023 Chronic Other nutritional; endocrine; and metabolic disorders (2 sources) Decrease in appetite; Translations: [Anorexia] 11-19-2024 Episodic Other nutritional; endocrine; and metabolic disorders (1 source) Weight decreased; Translations: [Abnormal weight loss] 01-07-2025 Episodic Other skin disorders (2 sources) Loss of hair; Translations: [Nonscarring hair loss, unspecified] 09-05-2023 Episodic Otitis media and related conditions (1 [...] Translations: [Flushing] 04-04-2023 Episodic Residual codes; unclassified (3 sources) Nicotine user; Translations: [Tobacco use] 07-22-2023 Episodic Spondylosis; intervertebral disc disorders; other back problems (18 sources) Displacement of intervertebral disc, site unspecified, without myelopathy; Translations: [Bulging of intervertebral disc] 08-15-2021 Chronic Thyroid disorders (20 sources) Goiter; Translations: [Nontoxic goiter, unspecified] Onset: 03-04-2015 03-04-2015 Chronic Unclassified (3 sources) APPOINTMENT CANCELLED Unclassified (1 source) NO SHOW Unclassified (2 sources) Long-term current use of drug therapy 11-19-2024 Unclassified (1 source) Headaches; Translations: [Headaches] Onset: 01-07-2025 Viral infection (1 source) Viral disease; Translations: [Viral infection, unspecified] 06-19-2022 Episodic Past or Other Problems Problem Classification Problem Date Documented Date Episodic/Chronic Allergic reactions (20 sources) Eczema; Translations: [Dermatitis, unspecified] Onset: 06-30-2010 Resolved: 06-06-2012 06-06-2012 Episodic Anxiety disorders (6 sources) Feeling irritable; Translations: [Irritability and anger] Onset: 11-19-2024 04-04-2023 Episodic Contraceptive and procreative management (20 sources) Intrauterine contraceptive device in situ; Translations: [Presence of (intrauterine) contraceptive device] Onset: 03-29-2013 Resolved: 08-23-2017 08-23-2017 Episodic Genitourinary symptoms and ill-defined conditions (20 sources) History of recurrent urinary tract infection; Translations: [Personal history of urinary (tract) infections] Onset: 05-25-2012 Resolved: 06-06-2012 06-15-2021 Episodic Immunizations and screening for infectious disease (20 sources) Immunization due; Translations: [Encounter for immunization] Onset: 05-25-2012 Resolved: 02-22-2013 06-15-2021 Episodic Nausea and vomiting (11 sources) Nausea, vomiting and diarrhea; Translations: [Nausea with vomiting, unspecified] Onset: 11-19-2024 02-09-2022 Episodic Nonmalignant breast conditions (20 sources) Galactorrhea not associated with childbirth; Translations: [Galactorrhea not associated with childbirth] Onset: 11-29-2008 Resolved: 10-10-2009 10-10-2009 Episodic Other and unspecified benign neoplasm (1 source) Other benign neoplasm of skin of left ear and external auricular canal; Translations: [Other benign neoplasm of skin of left ear and external auricular canal] Onset: 04-19-2024 Episodic Other complications of (20 sources) Poor growth affecting management; Translations: [Maternal care for other known or suspected poor growth, unspecified trimester, not applicable or unspecified] Onset: 08-20-2009 Resolved: 10-10-2009 10-10-2009 Episodic Other complications of (20 sources) Supervision of with other poor reproductive or obstetric history, unspecified trimester; Translations: [ with other poor obstetric history] Onset: 05-25-2012 Resolved: 02-22-2013 06-15-2021 Episodic Other complications of (20 sources) History of hemorrhage; Translations: [Supervision of with other poor reproductive or obstetric history, unspecified trimester] Onset: 05-25-2012 Resolved: 02-22-2013 06-15-2021 Episodic Other complications of (11 sources) Nausea and vomiting; Translations: [Vomiting of , unspecified] Onset: 05-25-2012 Resolved: 02-22-2013 06-15-2021 Episodic Other complications of (20 sources) RhD negative; Translations: [Other specified related conditions, unspecified trimester] Onset: 05-26-2012 Resolved: 02-22-2013 02-22-2013 Episodic Other complications of (20 sources) High risk ; Translations: [Supervision of high risk , unspecified, unspecified trimester] Onset: 06-06-2012 Resolved: 02-22-2013 06-15-2021 Episodic Other complications of (20 sources) Vomiting of , unspecified; Translations: [Unspecified vomiting of , unspecified as to episode of care or not applicable] Onset: 05-25-2012 Resolved: 02-22-2013 06-15-2021 Episodic Other inflammatory condition of skin (20 sources) Pruritus, unspecified; Translations: [Unspecified pruritic disorder] Onset: 06-30-2010 Resolved: 06-06-2012 06-06-2012 Episodic Other lower respiratory disease (20 sources) H/O: asthma; Translations: [Personal history of other diseases of the respiratory system] Onset: 05-25-2012 Resolved: 02-22-2013 06-15-2021 Episodic Other nutritional; endocrine; and metabolic disorders (1 source) Anorexia; Translations: [Decreased appetite] Onset: 01-07-2025 Episodic Other skin disorders (20 sources) Acne; Translations: [Other acne] Onset: 06-30-2010 Resolved: 06-06-2012 04-04-2023 Episodic Other skin disorders (20 sources) Folliculitis; Translations: [Follicular disorder, unspecified] Onset: 06-30-2010 Resolved: 06-06-2012 06-06-2012 Episodic Other upper respiratory infections (5 sources) Acute upper respiratory infection; Translations: [Acute upper respiratory infection, unspecified] Onset: 09-03-2024 11-24-2023 Episodic Residual codes; unclassified (20 sources) Tobacco use and exposure - finding; Translations: [Tobacco use] Onset: 03-29-2013 03-29-2013 Episodic Screening and history of mental health and substance abuse codes (20 sources) H/O: depression; Translations: [Personal history of other mental and behavioral disorders] Onset: 05-25-2012 Resolved: 02-22-2013 06-15-2021 Episodic Spondylosis; intervertebral disc disorders; other back problems (20 sources) Acute back pain with sciatica; Translations: [Lumbago with sciatica, right side] Onset: 05-29-2014 05-29-2014 Episodic Substance-related disorders (20 sources) Tobacco user; Translations: [Nicotine dependence, unspecified, uncomplicated] Onset: 08-06-2008 Resolved: 06-06-2012 06-06-2012 Chronic Results Test Name Value Interpretation Reference Range Facility [facility] 03-14-2025 CNPN Telephone (PSWSTR) KRISTEL CHILEL ([id number]) 1985 [facility] Date Time Provider Department 03/14/25 KINSEY LEVINE PSWSTR During your visit today, we recorded the following information about you: Kristen Nj RN 03/14/2025 12:45 PM Signed Patient calls and states that she called to cancel her appointment for Tuesday on Tuesday. Patient states that nurse was supposed to call her back and she never received a call back. Patient asking if nurse can give her a call back so that she can reschedule appointment? Please review and advise, ANTONIO Oconnor Fonda, LPN 03/14/2025 2:20 PM Signed Pt appointment scheduled for 03/15. Lainey Jeffries LPN Allergies As of Date: 03/14/2025 Noted Allergy Reaction CATS 01/27/2009 Comments: SNEEZING,WATERY EYES DOG HAIR 01/27/2009 10 - Anaphylaxis Comments: SNEEZING, WATERY EYES SULFA (SULFONAMIDE ANTIBIOTICS) 06/03/2009 4 - Hives Date Reviewed: 10/15/2024 Reviewed by: Pattie Chavez MA - Fully Assessed Reason for Visit: Appointment [186] Prescriptions as of 03/14/2025 - brexpiprazole (REXULTI) 1 mg tablet Take 1 tablet by mouth once daily. For bipolar 2 depression - gabapentin (NEURONTIN) 400 mg capsule Take 1 capsule by mouth three times a day for 60 days. - albuterol HFA (PROVENTIL HFA, VENTOLIN HFA) 90 mcg/actuation inhaler Inhale 2 Puffs as instructed every 4 hours as needed for wheezing/shortness of breath. - dicyclomine (BENTYL) 10 mg capsule TAKE 1 CAPSULE THREE TIMES DAILY BEFORE MEALS Problem List As Of Date 03/14/2025 Noted Resolved Tobacco use disorder [F17.200] 08/06/2008 06/06/2012 Galactorrhea not Associated with Childbirth [N6*11/29/2008 10/10/2009 Mastodynia [N64.4] 11/29/2008 10/10/2009 Poor Grth-Antepart [O36.5990] 08/20/2009 10/10/2009 DEPRESSION [F32.89] 10/28/2009 06/06/2012 Routine general medical examination at [facility]*02/19/2010 06/06/2012 Class: Chronic Routine gynecological examination [Z01.419] [...] disorder (HCC) [F31.81] 04/27/2021 Encounter Status:Closed by LAINEY JEFFRIES on 03/14/25 [facility] CNOVindra 03-12-2025 CNOV Office Visit (PSWSTR ) KRISTEL CHILEL ([id number]) 1985 F CHT Date Time Provider Department 03/12/25 2:30 PM KINSEY LEVINE PSWSTR During your visit today, we recorded the following information about you: Kinsey Levine, AMBULATORY CARE COORDINATOR.RETURNED CASE INSPECTOR 03/12/2025 6:24 PM Signed Patient did not come in for her appointment with the provider today. She did not answer her phone when she was contacted by this provider's nurse. Allergies As of Date: 03/12/2025 Noted Allergy Reaction CATS 01/27/2009 Comments: SNEEZING,WATERY EYES DOG HAIR 01/27/2009 10 - Anaphylaxis Comments: SNEEZING, WATERY EYES SULFA (SULFONAMIDE ANTIBIOTICS) 06/03/2009 4 - Hives Date Reviewed: 10/15/2024 Reviewed by: Pattie hCavez MA - Fully Assessed Reason for Visit: No Show [1558] Primary Visit Diagnosis:NO SHOW Prescriptions as of 03/12/2025 - brexpiprazole (REXULTI) 1 mg tablet Take 1 tablet by mouth once daily. For bipolar 2 depression - gabapentin (NEURONTIN) 400 mg capsule Take 1 capsule by mouth three times a day for 60 days. - diazePAM (VALIUM) 5 mg tablet Take 1 tablet by mouth two times a day as needed for anxiety or muscle spasm for up to 30 days. - albuterol HFA (PROVENTIL HFA, VENTOLIN HFA) 90 mcg/actuation inhaler Inhale 2 Puffs as instructed every 4 hours as needed for wheezing/shortness of breath. - dicyclomine (BENTYL) 10 mg capsule TAKE 1 CAPSULE THREE TIMES DAILY BEFORE MEALS Problem List As Of Date 03/12/2025 Noted Resolved Tobacco use disorder [F17.200] 08/06/2008 06/06/2012 Galactorrhea not Associated with Childbirth [N6*11/29/2008 10/10/2009 Mastodynia [N64.4] 11/29/2008 10/10/2009 Poor Grth-Antepart [O36.5990] 08/20/2009 10/10/2009 DEPRESSION [F32.89] 10/28/2009 06/06/2012 Routine general medical examination at [facility]*02/19/2010 06/06/2012 Class: Chronic Routine gynecological examination [Z01.419] [...] 04/27/2021 Encounter Status:Closed by KINSEY LEVINE on 03/12/25 [facility] 03-01-2025 [facility] Telephone (PSWSTR) KRISTEL CHILEL ([id number]) 1985 F T Date Time Provider Department 03/01/25 KINSEY LEVINE PSWSTR During your visit today, we recorded the following information about you: Lainey Jeffries LPN 03/01/2025 5:24 PM Signed Pa through [employer] faxed. Lignum Weeman, HEAD OF D[employer] ADVERTISING & INTEGRATION Pt also asking if she can have an RX for lunesta to help with sleep. TREMAYNE Hayes Nishi J, JOSE.RETURNED CASE INSPECTOR 03/08/2025 1:22 PM Signed Will discuss alternatives at the next appointment. Please schedule her with me for a virtual or in person appointment on Tuesday at 2:30 pm. Allergies As of Date: 03/01/2025 Noted Allergy Reaction CATS 01/27/2009 Comments: SNEEZING,WATERY EYES DOG HAIR 01/27/2009 10 - Anaphylaxis Comments: SNEEZING, WATERY EYES SULFA (SULFONAMIDE ANTIBIOTICS) 06/03/2009 4 - Hives Date Reviewed: 10/15/2024 Reviewed by: Pattie Chavez MA - Fully Assessed Prescriptions as of 03/08/2025 - brexpiprazole (REXULTI) 1 mg tablet Take 1 tablet by mouth once daily. For bipolar 2 depression - gabapentin (NEURONTIN) 400 mg capsule Take 1 capsule by mouth three times a day for 60 days. - diazePAM (VALIUM) 5 mg tablet Take 1 tablet by mouth two times a day as needed for anxiety or muscle spasm for up to 30 days. - albuterol HFA (PROVENTIL HFA, VENTOLIN HFA) 90 mcg/actuation inhaler Inhale 2 Puffs as instructed every 4 hours as needed for wheezing/shortness of breath. - dicyclomine (BENTYL) 10 mg capsule TAKE 1 CAPSULE THREE TIMES DAILY BEFORE MEALS Problem List As Of Date 03/01/2025 Noted Resolved Tobacco use disorder [F17.200] 08/06/2008 06/06/2012 Galactorrhea not Associated with Childbirth [N6*11/29/2008 10/10/2009 Mastodynia [N64.4] 11/29/2008 10/10/2009 Poor Grth-Antepart [O36.5990] 08/20/2009 10/10/2009 DEPRESSION [F32.89] 10/28/2009 06/06/2012 Routine general medical examination at [facility]*02/19/2010 06/06/2012 Class: Chronic Routine gynecological examination [Z01.419] [...] disorder (HCC) [F31.81] 04/27/2021 Encounter Status:[facility]ES [facility]ST[facility] ([id number]) 1985 F [facility] Date Time Provider Department 03/01/25 KINSEY LEVINE PSWSTR During your visit today, we recorded the following information about you: Lainey Jeffries LPN 03/01/2025 4:10 PM Signed Updated patient on Rexulti RX being covered by insurance. Pt has [facility] for a secondary insurance, so pt is going to call pharm and see if that will cover the RX. Will call back to office with response. TREMAYNE Hayes Nishi J, AMBULATORY CARE COORDINATOR.RETURNED CASE INSPECTOR 03/08/2025 1:21 PM Signed Will be offered an appointment to discuss alternatives since insurance is not covering Rexulti even after PA was completed. Mariposa Asencio RN 03/08/2025 3:29 PM Signed Pt called in and reports she received a letter from [facility] about the Rexaulti. She states it says that it doesn't meet the PA criteria. She said that the Rexailti has to be used as an add on drug, it cannot be the only drug being used. Pt reports she is going to try and upload the letter for the provider to read. ANTONIO Lo Fonda, LPN 03/11/2025 10:15 AM Signed Pt has office visit with Kinsey to discuss other options. Lainey Jeffries LPN Allergies As of Date: 03/01/2025 Noted Allergy Reaction CATS 01/27/2009 Comments: SNEEZING,WATERY EYES DOG HAIR 01/27/2009 10 - Anaphylaxis Comments: SNEEZING, WATERY EYES SULFA (SULFONAMIDE ANTIBIOTICS) 06/03/2009 4 - Hives Date Reviewed: 10/15/2024 Reviewed by: Pattie Chavez MA - Fully Assessed Reason for Visit: Medication Problem [65] Prescriptions as of 03/11/2025 - brexpiprazole (REXULTI) 1 mg tablet Take 1 tablet by mouth once daily. For bipolar 2 depression - gabapentin (NEURONTIN) 400 mg capsule Take 1 capsule by mouth three times a day for 60 days. - diazePAM (VALIUM) 5 mg tablet Take 1 tablet by mouth two times a day as needed for anxiety or muscle spasm for up to 30 days. - albuterol HFA (PROVENTIL HFA, VENTOLIN HFA) 90 mcg/actuation inhaler Inhale 2 Puffs as instructed every 4 hours as needed for wheezing/shortness of breath. - dicyclomine (BENTYL) 10 mg capsule TAKE 1 CAPSULE THREE TIMES DAILY BEFORE MEALS Problem List As Of Date 03/01/2025 Noted Resolved Tobacco use disorder [F17.200] 08/06/2008 06/06/2012 Galactorrhea not Associated with Childbirth [N6*11/29/2008 10/10/2009 Mastodynia [N64.4] 11/29/2008 10/10/2009 Poor Grth-Antepart [O36.5990] 08/20/2009 10/10/2009 DEPRESSION [F32.89] 10/28/2009 06/06/2012 Routine general medical examination at [facility]*02/19/2010 06/06/2012 Class: Chronic Routine gynecological examination [Z01.419] [...] disorder (HCC) [F31.81] 04/27/2021 Encounter Status:Closed by LAINEY JEFFRIES on 03/01/25 [facility] 02-28-2025 CNPN Telephone (PSWSTR) KRISTEL CHILEL ([id number]) 1985 F T Date Time Provider Department 02/28/25 KINSEY LEVINE PSWSTR During your visit today, we recorded the following information about you: Lainey Jeffries LPN 02/28/2025 2:43 PM Signed PA denial for Rexulti, pharmacy review scanned to chart for you to review. TREMAYNE Hayes Nishi J, APRN.RETURNED CASE INSPECTOR 02/28/2025 3:10 PM Signed Noted that the insurance denied Rexulti because they thought it was for MDD and not bipolar 2 disorder. A new prescription has been sent to the pharmacy with the bipolar 2 diagnosis. Kinsey Levine APRN.[facility] 02/28/2025 3:10 PM Signed Addended by: KINSEY LEVINE on: 02/28/2025 03:10 PM Modules accepted: Orders Lainey Jeffries LPN 03/01/2025 4:21 PM Signed See note from 03/01/25 on pt chart. Lainey Jeffries LPN Allergies As of Date: 02/28/2025 Noted Allergy Reaction CATS 01/27/2009 Comments: SNEEZING,WATERY EYES DOG HAIR 01/27/2009 10 - Anaphylaxis Comments: SNEEZING, WATERY EYES SULFA (SULFONAMIDE ANTIBIOTICS) 06/03/2009 4 - Hives Date Reviewed: 10/15/2024 Reviewed by: Pattie Chavez MA - Fully Assessed Primary Visit Diagnosis:Bipolar 2 disorder ([facility]) [F31.81] Order(s):brexpiprazole (REXULTI) 1 mg tabletTake 1 tablet by mouth once daily. For bipolar 2 depressionDisp: 30 tabletRfl: 1 Prescriptions as of 03/01/2025 - brexpiprazole (REXULTI) 1 mg tablet Take 1 tablet by mouth once daily. For bipolar 2 depression - gabapentin (NEURONTIN) 400 mg capsule Take 1 capsule by mouth three times a day for 60 days. - diazePAM (VALIUM) 5 mg tablet Take 1 tablet by mouth two times a day as needed for anxiety or muscle spasm for up to 30 days. - albuterol HFA (PROVENTIL HFA, VENTOLIN HFA) 90 mcg/actuation inhaler Inhale 2 Puffs as instructed every 4 hours as needed for wheezing/shortness of breath. - dicyclomine (BENTYL) 10 mg capsule TAKE 1 CAPSULE THREE TIMES DAILY BEFORE MEALS Problem List As Of Date 02/28/2025 Noted Resolved Tobacco use disorder [F17.200] 08/06/2008 06/06/2012 Galactorrhea not Associated with Childbirth [N6*11/29/2008 10/10/2009 Mastodynia [N64.4] 11/29/2008 10/10/2009 Poor Grth-Antepart [O36.5990] 08/20/2009 10/10/2009 DEPRESSION [F32.89] 10/28/2009 06/06/2012 Routine general medical examination at a [facility]*02/19/2010 06/06/2012 Class: Chronic Routine gynecological examination [Z01.419] [...] 04/27/2021 Bipolar 2 disorder (HCC) [F31.81] 04/27/2021 Prescriptions ordered this encounter Disp Refills Start End BREXPIPRAZOLE 1 MG TABLET 30 t* 1 02/28/2025 04/29/2025 Cmt: Please run the prescription again with current diagnosis of bipolar 2 disorder. The insurance denied the medication because they though it was just for depression. Route: PO Sig: Take 1 tablet by mouth once daily. For bipolar 2 depression Medications Discontinued During This Encounter Prescriptions - brexpiprazole (REXULTI) 1 mg tablet (Discontinued) Take 1 tablet by mouth once daily. Encounter Status:Closed by LAINEY JEFFRIES on 02/28/25 [facility] Telephone (PSWSTR) KRISTEL CHILEL ([id number]) 1985 F [facility] Date Time Provider Department 02/12/25 KINSEY LEVINE PSWSTR During your visit today, we recorded the following information about you: Sheila Flood RN 02/12/2025 10:26 AM Signed Patient calls to report that she spoke to the pharmacist at [facility] in regards to Prior Authorization for Rexulti. Patient was instructed to contact [employer] which she did and [employer] told her PA needed to be submitted through [employer] and she was given contact information. [employer]: ANTONIO White Fonda, LPN 02/25/2025 2:46 PM Signed PA has been completed and sent to cover my meds. Lainey Jeffries LPN Allergies As of Date: 02/12/2025 Noted Allergy Reaction CATS 01/27/2009 Comments: SNEEZING,WATERY EYES DOG HAIR 01/27/2009 10 - Anaphylaxis Comments: SNEEZING, WATERY EYES SULFA (SULFONAMIDE ANTIBIOTICS) 06/03/2009 4 - Hives Date Reviewed: 10/15/2024 Reviewed by: Pattie Chavez MA - Fully Assessed Reason for Visit: Insurance Authorization [1693] Prescriptions as of 02/25/2025 - gabapentin (NEURONTIN) 400 mg capsule Take 1 capsule by mouth three times a day for 60 days. - diazePAM (VALIUM) 5 mg tablet Take 1 tablet by mouth two times a day as needed for anxiety or muscle spasm for up to 30 days. - brexpiprazole (REXULTI) 1 mg tablet Take 1 tablet by mouth once daily. - albuterol HFA (PROVENTIL HFA, VENTOLIN HFA) 90 mcg/actuation inhaler Inhale 2 Puffs as instructed every 4 hours as needed for wheezing/shortness of breath. - dicyclomine (BENTYL) 10 mg capsule TAKE 1 CAPSULE THREE TIMES DAILY BEFORE MEALS Problem List As Of Date 02/12/2025 Noted Resolved Tobacco use disorder [F17.200] 08/06/2008 06/06/2012 Galactorrhea not Associated with Childbirth [N6*11/29/2008 10/10/2009 Mastodynia [N64.4] 11/29/2008 10/10/2009 Poor Grth-Antepart [O36.5990] 08/20/2009 10/10/2009 DEPRESSION [F32.89] 10/28/2009 06/06/2012 Routine general medical examination at [facility]*02/19/2010 06/06/2012 Class: Chronic Routine gynecological examination [Z01.419] [...] disorder (HCC) [F31.81] 04/27/2021 Encounter Status:Closed by LAINEY JEFFRIES on 02/25/25 [facility] (FAMPWS) KRISTEL CHILEL ([id number]) 1985 F T Date Time Provider Department 01/21/25 GUILLE CONDE FAMPWS During your visit today, we recorded the following information about you: Simeon Maya RN 01/21/2025 10:52 AM Signed Pt reports she spoke with RENEA who informed her they faxed the PA for Daeulti to Kinsey twice today and wonders if they have the right fax number. RENEA faxing to [phone] (the number given to pt by Kinsey's office). Pt reports she is having trouble sleeping and hasn't had medication for 2 weeks. Please advise and phone pt with reply. Allergies As of Date: 01/21/2025 Noted Allergy Reaction CATS 01/27/2009 Comments: SNEEZING,WATERY EYES DOG HAIR 01/27/2009 10 - Anaphylaxis Comments: SNEEZING, WATERY EYES SULFA (SULFONAMIDE ANTIBIOTICS) 06/03/2009 4 - Hives Date Reviewed: 10/15/2024 Reviewed by: Pattie Chavez MA - Fully Assessed Reason for Visit: Ambika GUERRERO [Other] Prescriptions as of 01/30/2025 - brexpiprazole (REXULTI) 1 mg tablet Take 1 tablet by mouth once daily. - gabapentin (NEURONTIN) 400 mg capsule Take 1 capsule by mouth three times a day for 60 days. - albuterol HFA (PROVENTIL HFA, VENTOLIN HFA) 90 mcg/actuation inhaler Inhale 2 Puffs as instructed every 4 hours as needed for wheezing/shortness of breath. - dicyclomine (BENTYL) 10 mg capsule TAKE 1 CAPSULE THREE TIMES DAILY BEFORE MEALS Problem List As Of Date 01/21/2025 Noted Resolved Tobacco use disorder [F17.200] 08/06/2008 06/06/2012 Galactorrhea not Associated with Childbirth [N6*11/29/2008 10/10/2009 Mastodynia [N64.4] 11/29/2008 10/10/2009 Poor Grth-Antepart [O36.5990] 08/20/2009 10/10/2009 DEPRESSION [F32.89] 10/28/2009 06/06/2012 Routine general medical examination at [facility]*02/19/2010 06/06/2012 Class: Chronic Routine gynecological examination [Z01.419] [...] disorder (HCC) [F31.81] 04/27/2021 Encounter Status:Closed by Simeon MAYA on 01/30/25 [facility] KRISTEL CHILEL ([id number]) 1985 F T Date Time Provider Department 01/10/25 KINSEY LEVINE PSWSTR During your visit today, we recorded the following information about you: Jada Fried LPN 01/10/2025 12:38 PM Signed PRIOR AUTHORIZATION Medication for Prior Authorization: Rexulti Other formulary meds available : NO Insurance Company: [employer] phone number: [phone] Patient insurance ID number: [id number] TREMAYNE Kim Ashley 01/14/2025 10:21 AM Signed Patient called to report that she provided the Medicaid exemption code to pharmacy as instructed by Chirag. Pharmacy did not know what to do with the exemption code. Please contact patient to advise. Lainey Jeffries LPN 01/17/2025 11:57 AM Signed Called placed to Pharm ([facility]), spoke with Gregg, he is going to send the PA for rexulti. Lainey Jeffries LPN Allergies As of Date: 01/10/2025 Noted Allergy Reaction CATS 01/27/2009 Comments: SNEEZING,WATERY EYES DOG HAIR 01/27/2009 10 - Anaphylaxis Comments: SNEEZING, WATERY EYES SULFA (SULFONAMIDE ANTIBIOTICS) 06/03/2009 4 - Hives Date Reviewed: 10/15/2024 Reviewed by: Pattie Chavez MA - Fully Assessed Reason for Visit: Insurance Authorization [1693] Medication Problem [65] Cmt: Pharmacy Prescriptions as of 01/17/2025 - brexpiprazole (REXULTI) 1 mg tablet Take 1 tablet by mouth once daily. - gabapentin (NEURONTIN) 400 mg capsule Take 1 capsule by mouth three times a day for 60 days. - albuterol HFA (PROVENTIL HFA, VENTOLIN HFA) 90 mcg/actuation inhaler Inhale 2 Puffs as instructed every 4 hours as needed for wheezing/shortness of breath. - dicyclomine (BENTYL) 10 mg capsule TAKE 1 CAPSULE THREE TIMES DAILY BEFORE MEALS Problem List As Of Date 01/10/2025 Noted Resolved Tobacco use disorder [F17.200] 08/06/2008 06/06/2012 Galactorrhea not Associated with Childbirth [N6*11/29/2008 10/10/2009 Mastodynia [N64.4] 11/29/2008 10/10/2009 Poor Grth-Antepart [O36.5990] 08/20/2009 10/10/2009 DEPRESSION [F32.89] 10/28/2009 06/06/2012 Rout[facility] at [facility]*02/19/2010 06/06/2012 Class: Chronic Routine gynecological examination [Z01.419] [...] disorder (HCC) [F31.81] 04/27/2021 Encounter Status:Closed by LAINEY JEFFRIES on 01/17/25 [facility] CNOVon 10-15-2024 CNOV Office Visit (UCWSTR ) KRISTEL CHILEL ([id number]) 1985 F T Date Time Provider Department 10/15/24 5:00 PM MIKO CHICAS [facility] During your visit today, we recorded the following information about you: Temperature Pulse Respiration Blood pressure 99.4 degrees 88/minute 16/minute 128/76 Weight 79.4 kg Miko Chicas MD 10/15/2024 5:19 PM Signed [facility] Subjective Kristel Chilel is a 39 year old female. Patient presents with: Headache: bodyaches, nausea and vomiting x 1 day Patient began feeling sick yesterday. She has had bodyaches, headache, sore throat, nausea, vomiting, fatigue, clogged ears. She has had little cough and nasal congestion. Denies diarrhea, shortness of breath, or wheezing. She has used cold medicine and acetaminophen for her symptoms. Her daughter is sick also; her daughter was exposed to COVID. Review of Systems Objective BP 128/76 Pulse 88 Temp 37.4 ?C (99.4 ?F) Resp 16 Wt 79.4 kg (175 lb 0.7 oz) LMP 04/30/2015 (Approximate) SpO2 99% BMI 33.07 kg/m? Physical Exam Constitutional: General: She is not in acute distress. Appearance: She is ill-appearing. HENT: Right Ear: Tympanic membrane and ear canal normal. Left Ear: Tympanic membrane and ear canal normal. Nose: Congestion present. Right Sinus: Maxillary sinus tenderness and frontal sinus tenderness present. Left Sinus: Maxillary sinus tenderness and frontal sinus tenderness present. Mouth/Throat: Mouth: Mucous membranes are moist. Pharynx: Posterior oropharyngeal erythema present. No oropharyngeal exudate. Eyes: Extraocular Movements: Extraocular movements intact. Conjunctiva/sclera: Conjunctivae normal. Pupils: Pupils are equal, round, and reactive to light. Cardiovascular: Rate and Rhythm: Normal rate and regular rhythm. Heart sounds: No murmur heard. Pulmonary: Effort: No respiratory distress. Breath sounds: No wheezing, rhonchi or rales. Musculoskeletal: Cervical back: Neck supple. Lymphadenopathy: Cervical: No cervical adenopathy. Neurological: Mental Status: She is alert. {ASSESSMENT/PLAN: 1. URI, acute - ICD9: 465.9, ICD10: J06.9 - suspect viral URI, possible COVID. - Supportive care treatment with rest, cold medicine, and analgesia. - Viral URI contagiousness recommendations: avoid exposure to others until fever free for 24 hours without fever reducing medication. An additional 5 days of limiting contact can include covering coughs/masking, social distance, and hand hygiene. Miko Chicas MD Differential Diagnoses - Viral URI, possible COVID is more likely for the following reason(s): suggested by HANDP Procedures Miko Chicas MD 10/15/2024 7:11 PM Signed Addended by: MIKO CHICAS on: 10/15/2024 07:11 PM Modules accepted: Orders Allergies As of Date: 10/15/2024 Noted Allergy Reaction CATS 01/27/2009 Comments: SNEEZING,WATERY EYES DOG HAIR 01/27/2009 10 - Anaphylaxis Comments: SNEEZING, WATERY EYES SULFA (SULFONAMIDE ANTIBIOTICS) 06/03/2009 4 - Hives Date Reviewed: 10/15/2024 Reviewed by: Pattie Chavez MA - Fully Assessed Reason for Visit: Headache [52] Cmt: bodyaches, nausea and vomiting x 1 day Primary Visit Diagnosis:URI, acute [J06.9] Order(s):COVID AND INFLUENZA A/B AND RSV PCR, ROUTINE [SQCVFLRS] Order #: [id number]. #:[id number] Prescriptions as of 10/15/2024 - lurasidone (LATUDA) 40 mg tablet Take 1 tablet by mouth daily with food. Take with atleast 300 calories. - gabapentin (NEURONTIN) 300 mg capsule Take 1 capsule by mouth three times a day for 60 days. - diazePAM (VALIUM) 5 mg tablet Take 1 tablet by mouth once daily as needed for anxiety for up to 30 days. - albuterol HFA (PROVENTIL HFA, VENTOLIN HFA) 90 mcg/actuation inhaler Inhale 2 Puffs as instructed every 4 hours as needed for wheezing/shortness of breath. - dicyclomine (BENTYL) 10 mg capsule TAKE 1 CAPSULE THREE TIMES DAILY BEFORE MEALS Problem List As Of Date 10/15/2024 Noted Resolved Tobacco use disorder [F17.200] 08/06/2008 06/06/2012 Galactorrhea not Associated with Childbirth [N6*11/29/2008 10/10/2009 Mastodynia [N64.4] 11/29/2008 10/10/2009 Poor Grth-Antepart [O36.5990] 08/20/2009 10/10/2009 DEPRESSION [F32.89] 10/28/2009 06/06/2012 Routine general medical examination at [facility]*02/19/2010 06/06/2012 Class: Chronic Routine gynecological examination [Z01.419] 02/19/2010 06/06/2012 Class: Chronic Other acne [L70.8] 06/30/2010 06/06/2012 Folliculitis [L73.9] 06/30/2010 06/06/2012 Pruritus [L29.9] 06/30/2010 06/06/2012 Eczematous dermatitis [L30.9] 06/30/2010 06/06/2012 Acne Urticata [L50.9] 06/30/2010 06/06/2012 Prior complicated by IUGR, antepartum*05/25/2012 02/22/2013 History of recurrent UTI (urinary tract infecti*05/25/2012 06/06/2012 History of hemorrhage, currentl (more content not included)... [facility] CNOVon 08-23-2024 CNOV Office Visit (UCTR ) KRISTEL CHILEL ([id number]) 1985 F CHT Date Time Provider Department 08/23/24 9:15 AM DREW SHAVER [facility] During your visit today, we recorded the following information about you: Drew Shaver APRN.RETURNED CASE INSPECTOR 08/23/2024 9:16 AM Signed Patient came in with complaints of severe shortness of breath. Patient appears to be in distress with audible wheezing. Patient is in the tripod position. Patient is very uncomfortable. Offered to call the squad to go to the ER. Patient declined. Instructed mother to take patient to the ER right away. Patient was agreeable to this care plan. Allergies As of Date: 08/23/2024 Noted Allergy Reaction CATS 01/27/2009 Comments: SNEEZING,WATERY EYES DOG HAIR 01/27/2009 10 - Anaphylaxis Comments: SNEEZING, WATERY EYES SULFA (SULFONAMIDE ANTIBIOTICS) 06/03/2009 4 - Hives Date Reviewed: 07/23/2024 Reviewed by: Lainey Jeffries LPN - Fully Assessed Primary Visit Diagnosis:SOB (shortness of breath) [R06.02] Prescriptions as of 08/23/2024 - gabapentin (NEURONTIN) 300 mg capsule Take 1 capsule by mouth three times a day for 60 days. - lurasidone (LATUDA) 40 mg tablet Take 1 tablet by mouth daily with food. Take with atleast 300 calories. - albuterol HFA (PROVENTIL HFA, VENTOLIN HFA) 90 mcg/actuation inhaler Inhale 2 Puffs as instructed every 4 hours as needed for wheezing/shortness of breath. - dicyclomine (BENTYL) 10 mg capsule TAKE 1 CAPSULE THREE TIMES DAILY BEFORE MEALS Problem List As Of Date 08/23/2024 Noted Resolved Tobacco use disorder [F17.200] 08/06/2008 06/06/2012 Galactorrhea not Associated with Childbirth [N6*11/29/2008 10/10/2009 Mastodynia [N64.4] 11/29/2008 10/10/2009 Poor Grth-Antepart [O36.5990] 08/20/2009 10/10/2009 DEPRESSION [F32.89] 10/28/2009 06/06/2012 Routine general medical examination at [facility]*02/19/2010 06/06/2012 Class: Chronic Routine gynecological examination [Z01.419] [...] disorder (HCC) [F31.81] 04/27/2021 Encounter Status:Closed by DREW SHAVER on 08/23/24 [facility] Chest PA and Lateralon 08-23 Chest PA and Lateral [facility] Imaging Services [address] [place] [address] Chest PA and Lateral MR#: [id number] Acct: [id number] Name: KRISTEL CHILEL Rep #: [id number] : 1985 F 39 From: Demarcus Chester MD PCP: Dr. Brent Conde MD Status: REG ER Study: Chest PA and Lateral Date of Exam: 08/23/24 Exam# [id number] Ordering Dr: Kel Garcia MD PROCEDURE: CHEST PA AND LATERAL REASON FOR EXAM: Cough. TECHNIQUE: Frontal and lateral views of the chest. COMPARISON: None. FINDINGS: Lungs: Lungs clear of pneumonia and congestion. Pleura: No pleural effusions, thickening, or pneumothorax. Heart: Normal in size and configuration. Mediastinum/Iona: Unremarkable. Great vessels: Unremarkable. Bones/soft tissues: Unremarkable. RAD/Chest PA and Lateral IMPRESSION: No active cardiopulmonary disease.. Reading Location: [place] [address] CC: Dr. Brent Conde MD; Dr. Kel Garcia MD Try On Baster: Signed [facility] Emergency Department Summary on 08-23-2024 Emergency Department Summary [facility] Medical Records Department [address] [place] [address] Emergency Department Summary 08/23/24 MR#: [id number] Acct: [id number] Name: KRISTEL CHILEL Rep #: [id number] : 1985 39 From: Kel Garcia MD PCP: Dr. Brent Conde MD Status:REG ER Location: ED HPI HPI - URI History of Present Illness Chief Complaint: Cold Sx Informant: patient and family Onset/Context/Timing Onset: Days Context: Gradual Onset Timing: Continuous Current Severity: Mild Maximum Severity: Mild Associated Symptoms Associated Symptoms: Positive for Nasal Congestion, Myalgias, Nausea, Shortness of Breath and Nonproductive cough; Negative for Vomiting or Diarrhea Narrative Narrative: 39-year-old female history of anxiety and borderline diabetes. Patient is a smoker. 3-day history of URI with fever as high as 102 nonproductive cough and wheezing. Patient is a smoker. Another female present in the room said she had similar symptoms the other day. Prior similar symptoms: Yes Recent Illness/Hospitalizatio n: No ROS ROS ED ROS Narrative Nonproductive cough. Fever. Body aches. Wheezing and shortness of breath. Constitutional Constitutional ED: Reports fever(s) Eyes Eyes: Denies blurry vision ENT ENT ED: Denies ear pain Cardiovascular Cardiovascular: Denies chest pain Respiratory/Chest Respiratory/Chest: Reports cough and dyspnea Gastrointestinal Gastrointestinal: Denies abdominal pain Genitourinary Genitourinary ED: Denies dysuria or hematuria Musculoskeletal Musculoskeletal: Denies arthralgias Integumentary Denies abscess Neurologic Neurologic: Denies headache(s) Psychiatric Psychiatric: Reports anxiety Endocrine Endocrinology: Denies cold intolerance Hematologic/Lymphatic Hematologic/Lymphatic: Reports easy bleeding Allergic/Immunologic Allergic/Immunologic ED: Denies mouth swelling, tongue swelling or urticaria [facility] Medical History Wears glasses Post-menopausal Depression History of steroid therapy Back pain Injury of head and neck Gastric reflux Smoker Asthma Leg cramps History of pain when walking History of edema Bulging disc Bipolar 2 disorder Back pain Migraine Panic attack Anxiety Home Medications ???Medication ???Instructions ???Recorded ???Last Taken ???Type albuterol sulfate 90 mcg/actuation 2 puff inhalation Q4H PRN PRN so b 11/30/21 03/25/24 Rx aerosol inhaler (Ventolin HFA) #8.5 grams diazepam 2 mg tablet (Valium) 2 mg PO QHS PRN muscle spasm #10 0 12/12/21 03/25/24 Rx tabs gabapentin 300 mg capsule 300 mg PO BID 02/27/24 03/25/24 Hi story lurasidone 40 mg tablet 40 mg PO DAILY 02/27/24 03/25/24 H istory prazosin 1 mg capsule 1 mg PO QHS 02/27/24 03/25/24 Hist ory albuterol sulfate 90 mcg/actuation 1 - 2 puff inhalation Q4H PRN AZ N 08/23/24 Unknown Rx aerosol inhaler (Ventolin HFA) Wheezing 1 week #1 device azithromycin 250 mg tablet See Rx Instructions PO .COMPLEX #6 08/23/24 Unknown Rx (Zithromax) tabs prednisone 20 mg tablet 40 mg (2 x 20 mg) PO DAILY 7 days 08/23/24 Unknown Rx #14 tabs Allergy/AdvReac Type Severity Reaction Status Date / Time Sulfa (Sulfonamide Allergy Rash Verified 08/23/24 11:04 Antibiotics) Surgical History Hx of surgical procedure History of tonsillectomy and adenoidectomy Hx of hysterectomy Social History Smoking Status: Current every day smoker tobacco type: cigarettes EXAM Physical Exam Narrative Exam Narrative: EENT exam pupils round reactive light. TMs normal. Posterior pharynx moist and pink. No trouble breathing or swallowing.39-year-old female sitting upright in bed. Vital signs are stable she is afebrile currently. Pulse ox 97% on room air no signs of hypoxia. No significant distress she does have wheezing. HEENT exam Pupils are round reactive light. Extra motions are intact. Posterior pharynx moist and pink. No trouble swallowing. No stridor. TMs normal. Neck nontender no lymphadenopathy. Lungs Expiratory wheezing bilaterally. No rales or rhonchi. Equal symmetrical. Heart Regular rhythm rate about 110 no murmur. Chest wall ribs nontender. Abdomen soft nontender. Back nontender. Moving all 4 extremities. Normal strength. Calves are nontender without edema. No cords. Neurologically she is awake and alert. Const Vital Signs: 08/23/24 09:19 08/23/24 09:49 Temperature 98.6 F Temperature Source Oral Pulse Rate 111 H 108 H Respiratory Rate 18 16 Blood Pressure 126/86 H Blood Pressure Mean 99 Pulse Ox 97 Oxygen Delivery Method Room Air Positive well developed; Negative for cachectic or co (more content not included)... [facility] Influenza virus A and B and SARS-CoV-2 (COVID-19) and Respiratory syncytial virus RNAOrdered By: Kel Garcia on 08-23-2024 SARS-CoV-2 (COVID-19) RNA NICO+probe Ql (Unsp spec) [facility] M100.678on 08-23-2024 M100.678 Pending SARS-CoV-2 (COVID 19) Negative INFLUENZA A Negative INFLUENZA B Negative RSV PCR Negative [facility] Comment on above: Performed By: #### M 100.678 #### [facility] [address] [place], [address] CNPNon 08-16-2024 CNPN Telephone (PSWSTR) KRISTEL CHILEL ([id number]) 1985 F CHT Date Time Provider Department 08/16/24 KINSEY LEVINE PSWSTR During your visit today, we recorded the following information about you: Simeon Maya, RN 08/16/2024 8:33 AM Signed Pt phoned to discuss lab results. Reviewed lab results with patient. Pt asking provider to please advise. Kinsey Levine, AMBULATORY CARE COORDINATOR.RETURNED CASE INSPECTOR 08/17/2024 12:05 PM Signed Reviewed patient's lab results. Please notify the patient that all her lab results have significantly improved compared to the previous time when they were completed. She should continue the interventions recommended at the last appointment. Lainey Jeffries LPN 08/17/2024 3:04 PM Signed Call placed to patient notifying of lab results. With instructions to continue interventions recommended to last appointment. Patient voices understanding. Lainey Jeffries LPN Allergies As of Date: 08/16/2024 Noted Allergy Reaction CATS 01/27/2009 Comments: SNEEZING,WATERY EYES DOG HAIR 01/27/2009 10 - Anaphylaxis Comments: SNEEZING, WATERY EYES SULFA (SULFONAMIDE ANTIBIOTICS) 06/03/2009 4 - Hives Date Reviewed: 07/23/2024 Reviewed by: Lainey Jeffries LPN - Fully Assessed Reason for Visit: Patient Question [7337] Prescriptions as of 08/17/2024 - gabapentin (NEURONTIN) 300 mg capsule Take 1 capsule by mouth three times a day for 60 days. - lurasidone (LATUDA) 40 mg tablet Take 1 tablet by mouth daily with food. Take with atleast 300 calories. - diazePAM (VALIUM) 5 mg tablet Take 1 tablet by mouth once daily as needed for anxiety for up to 30 days. - albuterol HFA (PROVENTIL HFA, VENTOLIN HFA) 90 mcg/actuation inhaler Inhale 2 Puffs as instructed every 4 hours as needed for wheezing/shortness of breath. - dicyclomine (BENTYL) 10 mg capsule TAKE 1 CAPSULE THREE TIMES DAILY BEFORE MEALS Problem List As Of Date 08/16/2024 Noted Resolved Tobacco use disorder [F17.200] 08/06/2008 06/06/2012 Galactorrhea not Associated with Childbirth [N6*11/29/2008 10/10/2009 Mastodynia [N64.4] 11/29/2008 10/10/2009 Poor Grth-Antepart [O36.5990] 08/20/2009 10/10/2009 DEPRESSION [F32.89] 10/28/2009 06/06/2012 Routine general medical examination at [facility]*02/19/2010 06/06/2012 Class: Chronic Routine gynecological examination [Z01.419] [...] disorder (HCC) [F31.81] 04/27/2021 Encounter Status:Closed by LAINEY JEFFRIES on 08/17/24 [facility] 08-15-2024 [facility] Telephone (PSWSTR) KRISTEL CHILEL ([id number]) 1985 F T Date Time Provider Department 08/15/24 KINSEY LEVINE PSWSTR During your visit today, we recorded the following information about you: Venessa Lou RN 08/15/2024 8:36 AM Signed Patient reports she has been sick with the flu for about 1.5 weeks. States for about 1 week she has not taken her Gabapentin, her Latuda or any Diazepam because she was not able to keep anything down. Reports improving now and was planning on taking these medications today. Pt asking Kinsey if this is ok to restart them, as ordered, after not taking them for a week? VenessaANTNOIO Lindsey Nishi J, APRN.RETURNED CASE INSPECTOR 08/15/2024 11:32 AM Signed Please let the patient know that she can restart Gabapentin and Diazepam without any issues. She should take half a tablet of Latuda for 4 days and then increase it back to the full tablet. Lainey Jeffries LPN 08/17/2024 3:07 PM Signed Call placed to patient with instructions to restart Gabapentin and Diazepam. Take half tab of Latuda for 4 days then increase to whole tab. Patient voices understanding. Lainey Jeffries LPN Allergies As of Date: 08/15/2024 Noted Allergy Reaction CATS 01/27/2009 Comments: SNEEZING,WATERY EYES DOG HAIR 01/27/2009 10 - Anaphylaxis Comments: SNEEZING, WATERY EYES SULFA (SULFONAMIDE ANTIBIOTICS) 06/03/2009 4 - Hives Date Reviewed: 07/23/2024 Reviewed by: Lainey Jeffries LPN - Fully Assessed Reason for Visit: Patient Question [2707] Prescriptions as of 08/17/2024 - gabapentin (NEURONTIN) 300 mg capsule Take 1 capsule by mouth three times a day for 60 days. - lurasidone (LATUDA) 40 mg tablet Take 1 tablet by mouth daily with food. Take with atleast 300 calories. - diazePAM (VALIUM) 5 mg tablet Take 1 tablet by mouth once daily as needed for anxiety for up to 30 days. - albuterol HFA (PROVENTIL HFA, VENTOLIN HFA) 90 mcg/actuation inhaler Inhale 2 Puffs as instructed every 4 hours as needed for wheezing/shortness of breath. - dicyclomine (BENTYL) 10 mg capsule TAKE 1 CAPSULE THREE TIMES DAILY BEFORE MEALS Problem List As Of Date 08/15/2024 Noted Resolved Tobacco use disorder [F17.200] 08/06/2008 06/06/2012 Galactorrhea not Associated with Childbirth [N6*11/29/2008 10/10/2009 Mastodynia [N64.4] 11/29/2008 10/10/2009 Poor Grth-Antepart [O36.5990] 08/20/2009 10/10/2009 DEPRESSION [F32.89] 10/28/2009 06/06/2012 Routine general medical examination at [facility]*02/19/2010 06/06/2012 Class: Chronic Routine gynecological examination [Z01.419] [...] disorder (HCC) [F31.81] 04/27/2021 Encounter Status:Closed by LAINEY JEFFRIES on 08/17/24 [facility] Comprehensive metabolic 2000 panelon 08-15-2024 Albumin [Mass/Vol] 4.3 g/dL Normal 3.9-4.9 [facility] Comment on above: Order Comment: Speci men Type: BLOOD SPECIMENOrdering Facility: [facility] Address: [address] [place] [address] Performed By: #### 2 4323-8 ####[facility]PITALLIA [id number] [place] [address] [place]#### 56706-4 ####[facility]ORATORYCLIA [id number] [address] [id number] [place] [address] [place] ALP [Catalytic activity/Vol] 76 U/L Normal 34-123 [facility] Comment on above: Order Comment: Speci men Type: BLOOD SPECIMENOrdering Facility: [facility] Address: [address] [place] [address] Performed By: #### 2 4323-8 ####[facility] [id number] [place] [address] [place]#### 30160-9 ####[facility] LABORATORYCLIA [id number] [address] STATES OF [facility] [id number] [address] [place] ALT [Catalytic activity/Vol] 26 U/L Normal 7-38 [facility] Comment on above: Order Comment: Speci men Type: BLOOD SPECIMENOrdering Facility: [facility] Address: [address] [place] [address] Performed By: #### 2 4323-8 ####[facility] [id number] [place] [address] [place]#### 60273-5 ####[facility]ORATORYCLIA [id number] [address] OF [facility]IT[facility] [id number] [address] [place] Anion gap [Moles/Vol] 12 mmol/L Normal 8-15 [facility] Comment on above: Order Comment: Speci men Type: BLOOD SPECIMENOrdering Facility: [facility] Address: [address] [place] [address] Performed By: #### 2 4323-8 ####[facility] MILLTOWNCLIA [id number] [place] [address] [place]#### 87918-7 ####[facility]ORATORYCLIA [id number] [address] STATES [facility] [id number] [address] [place] AST [Catalytic activity/Vol] 19 U/L Normal 13-35 [facility] Comment on above: Order Comment: Speci men Type: BLOOD SPECIMENOrdering Facility: [facility] Address: [address] [place] [address] Performed By: #### 2 4323-8 ####[facility] HOSPITALWNCLIA [id number] [place] [address] [place]#### 63220-7 ####[facility]ORATORYCLIA [id number] [address] STATES OF [facility] HOSPITALWMOLIA [id number] [address] [place] Bilirubin [Mass/Vol] 0.4 mg/dL Normal 0.2-1.3 [facility] Comment on above: Order Comment: Speci men Type: BLOOD SPECIMENOrdering Facility: [facility] Address: [address] [place] [address] Performed By: #### 2 4323-8 ####[facility] MILLTOWNCLIA [id number] [place] [address] [place]#### 31796-1 ####[facility]ORATORYCLIA [id number] [address] [id number] [place] [address] [place] Calcium [Mass/Vol] 9.6 mg/dL Normal 8.5-10.2 [facility] Comment on above: Order Comment: Speci men Type: BLOOD SPECIMENOrdering Facility: [facility] Address: [address] [place] [address] Performed By: #### 2 4323-8 ####[facility] [id number] [place] [address] [place]#### 12012-2 ####[facility]ORATORYCLIA [id number] [address] STATES OF [facility] [id number] [place] [address] [place] Chloride [Moles/Vol] 105 mmol/L Normal 98-107 [facility] Comment on above: Order Comment: Speci men Type: BLOOD SPECIMENOrdering Facility: [facility] Address: [address] [place] [address] Performed By: #### 2 4323-8 ####[facility] [id number] [place] [address] [place]#### 45297-3 ####[facility]ORATORYCLIA [id number] [place] [address] [place] AMERICABAPT[facility] HOSPITALA [id number] [place] [address] [place] CO2 [Moles/Vol] 21 mmol/L Low 22-30 [facility] Comment on above: Order Comment: Speci men Type: BLOOD SPECIMENOrdering Facility: [facility] Address: [address] [place] [address] Performed By: #### 2 4323-8 ####[facility] [id number] [address]#### 49459-2 ####[facility] LABORATORYCLIA [id number] [address] [id number] [address] Creatinine [Mass/Vol] 0.84 mg/dL Normal 0.58-0.96 [facility] Comment on above: Order Comment: Speci men Type: BLOOD SPECIMENOrdering Facility: [facility] Address: [address] [place] [address] Performed By: #### 2 4323-8 ####[facility] [id number] [address]#### 09061-8 ####[facility] LABORATORYCLIA [id number] [address] [id number] [address] Creatinine and Glomerular filtration rate.predicted panel (S/P/Bld) 91 mL/min/1.73m??? Normal >=60 [facility] Comment on above: Order Comment: Speci men Type: BLOOD SPECIMENOrdering Facility: [facility] Address: [address] [place] [address] Result Comment: Kasey mated Glomerular Filtration Rate [...] reflect actual GFR. Performed By: #### 2 4323-8 ####[facility] HOSPITALWNCLIA [id number] [place] [address] [place]#### 65318-5 ####[facility] LABORATORYCLIA [id number] [address] [id number] [place] [address] [place] Glucose [Mass/Vol] 101 mg/dL High 74-99 [facility] Comment on above: Order Comment: Speci men Type: BLOOD SPECIMENOrdering Facility: [facility] Address: [address] [place] [address] Result Comment: The [place] Diabetes Association (ADA) provides guidance for cutoff [...] Standards of Medical Care in Diabetes 2016, [place] [employer]. Diabetes Care. 2016.39(Suppl 1). Performed By: #### 2 4323-8 ####[facility] [id number] [place] [address] [place]#### 42857-2 ####[facility]ORATORYCLIA [id number] [address] [id number] [place] [address] [place] Potassium [Moles/Vol] 4.0 mmol/L Normal 3.7-5.1 [facility] Comment on above: Order Comment: Speci men Type: BLOOD SPECIMENOrdering Facility: [facility] Address: [address] [place] [address] Performed By: #### 2 4323-8 ####[facility] MILLTOWNCLIA [id number] [place] [address] [place]#### 98595-3 ####[facility]ATORYCLIA [id number] [address] [id number] [place] [address] [place] Protein [Mass/Vol] 7.6 g/dL Normal 6.3-8.0 [facility] Comment on above: Order Comment: Speci men Type: BLOOD SPECIMENOrdering Facility: [facility] Address: [address] [place] [address] Performed By: #### 2 4323-8 ####[facility] [id number] [place] [address] [place]#### 27753-3 ####[facility]ORATORYCLIA [id number] [address] [id number] [place] [address] [place] Sodium [Moles/Vol] 138 mmol/L Normal 136-144 [facility] Comment on above: Order Comment: Speci men Type: BLOOD SPECIMENOrdering Facility: [facility] Address: [address] [place] [address] Performed By: #### 2 4323-8 ####[facility] MILLWNCLIA [id number] [place] [address] [place]#### 11521-0 ####[facility]ORATORYCLIA [id number] [address] OF [facility] HOSPITALLIA [id number] [address] Urea nitrogen [Mass/Vol] 12 mg/dL Normal 7-21 [facility] Comment on above: Order Comment: Chaka lua Type: BLOOD SPECIMENOrdering Facility: [facility] Address: [address] [place] [address] Performed By: #### 2 4323-8 ####[facility] [id number] [address] [place]#### 13623-1 ####[facility] LABORATORYCLIA [id number] [address] [id number] [address] [place] HbA1c (Bld)on 08-15-2024 Average glucose Estimated from glycated hemoglobin (Bld) [Mass/Vol] 111 mg/dL Normal [facility] Comment on above: Order Comment: Chaka lau Type: BLOOD SPECIMENOrdering Facility: [facility] Address: [address] [place] [address] Result Comment: eAG: (Estimated average glucose) is a calculated value from HgbA1c and is hr representative of the average blood glucose level in the last 2-3 month period. Performed By: #### 5 5454-3 ####[facility] LABCLIA [id number] [address] STATES OF [facility] HbA1c (Bld) [Mass fraction] 5.5 % Normal 4.3-5.6 [facility] Comment on above: Order Comment: Chaka [facility] Type: BLOOD SPECIMENOrdering Facility: [facility] Address: [address] [place] [address] Result Comment: [place] Diabetes Association guidelines indicate that patients with HgbA1c in the range 5.7-6.4% are at increased risk for development of diabetes, and intervention by lifestyle modification may be beneficial. HgbA1c greater or equal to 6.5% is considered diagnostic of diabetes. Performed By: #### 5 5454-3 ####[facility] LABCLIA [id number] [place] [address] [place] Lipid 1996 panelon 5 Cholesterol [Mass/Vol] 176 mg/dL Normal <200 [facility] Comment on above: Order Comment: Speci men Type: BLOOD SPECIMENOrdering Facility: [facility] Address: [address] [place] [address] Result Comment: <200 mg/dL, Desirable 200-239 mg/dL, Borderline high >239 mg/dL, High Performed By: #### 2 4323-8 ####[facility] BRYANT MILLTOWNCLIA [id number] [place] [address] [place]#### 73588-4 ####[facility]ORATORYCLIA [id number] [address] [id number] [place] [address] [place] Cholesterol in HDL [Mass/Vol] 28 mg/dL Low >39 [facility] Comment on above: Order Comment: Speci men Type: BLOOD SPECIMENOrdering Facility: [facility] Address: [address] [place] [address] Result Comment: 40-5 9 mg/dL, Acceptable >59 mg/dL, High: Negative risk factor for coronary heart disease <40 mg/dL, Low: Positive risk factor for coronary heart disease Performed By: #### 2 4323-8 ####[facility] MILLTOWNCLIA [id number] [place] [address] [place]#### 76959-4 ####[facility]ORATORYCLIA [id number] [address] STATES OF [facility] BRYANT MILLWNCLIA [id number] [place] [address] [place] Cholesterol in LDL [Mass/Vol] 87 mg/dL Normal <100 [facility] Comment on above: Order Comment: Speci men Type: BLOOD SPECIMENOrdering Facility: [facility] Address: [address] [place] [address] Result Comment: <100 mg/dL, Optimal 100-129 mg/dL, Near optimal/above optimal 130-159 mg/dL, Borderline high 160-189 mg/dL, High >189 mg/dL, Very high Secondary prevention optimal LDL Cholesterol levels are recommended to be < 70 mg/dL Performed By: #### 2 4323-8 ####[facility]IT[facility] [id number] [address] [place]#### 43912-5 ####[facility]ORATORYCLIA [id number] [address] [id number] [place] [address] [place] Cholesterol in LDL/Cholesterol in HDL [Mass ratio] 3.11 {ratio} High <2.54 [facility] Comment on above: Order Comment: Chaka lua Type: BLOOD SPECIMENOrdering Facility: [facility] Address: [address] [place] [address] Result Comment: Fabricio luis: 1. National Cholesterol Education Program ATP III Guideline At-A-Glance Quick Desk Reference: National Heart, Lung, and Blood Central Bridge. National Institutes of Health. 2001: NIH Publication No. 01-3305. 2. An International Atherosclerosis Society position paper: global recommendations for the management of dyslipidemia: executive summary, Atherosclerosis. 2014: 232(2):410-413. Performed By: #### 2 4323-8 ####[facility]PITALLIA [id number] [place] [address] [place]#### 12024-9 ####[facility]ATORYCLIA [id number] [address] [id number] [place] [address] [place] Cholesterol in VLDL [Mass/Vol] 61 mg/dL High <30 [facility] Comment on above: Order Comment: Speci men Type: BLOOD SPECIMENOrdering Facility: [facility] Address: [address] [place] [address] Performed By: #### 2 4323-8 ####[facility] [id number] [address]#### 79460-4 ####[facility] LABORATORYCLIA [id number] [address] OF [facility] [id number] [address] [place] Cholesterol non HDL [Mass/Vol] 148 mg/dL High <130 [facility] Comment on above: Order Comment: Speci men Type: BLOOD SPECIMENOrdering Facility: [facility] Address: [address] [place] [address] Result Comment: <130 mg/dL, Optimal 130-159 mg/dL, Near optimal/above optimal 160-189 mg/dL, Borderline high 190-219 mg/dL, High >219 mg/dL, Very high Secondary prevention optimal non HDL Cholesterol levels are recommended to be <100 mg/dL Performed By: #### 2 4323-8 ####[facility] [id number] [address] OF [place]#### 35785-3 ####[facility] LABORATORYCLIA [id number] [address] STATES OF [facility] [id number] [place] [address] [place] Cholesterol.total/Ch olesterol in HDL [Mass ratio] 6.29 {ratio} High <5.10 [facility] Comment on above: Order Comment: Speci men Type: BLOOD SPECIMENOrdering Facility: [facility] Address: [address] [place] [address] Performed By: #### 2 4323-8 ####[facility] MILLTOWNCLIA [id number] [place] [address] [place]#### 18403-8 ####[facility]ATORYCLIA [id number] [address] MILLTOWNCLIA [id number] [place] [address] [place] FASTING TIME 12 hrs Normal [facility] Comment on above: Order Comment: Speci men Type: BLOOD SPECIMENOrdering Facility: [facility] Address: [address] [place] [address] Performed By: #### 2 4323-8 ####[facility] HOSPITALWNCLIA [id number] [place] [address] [place]#### 69998-1 ####[facility]ATORYCLIA [id number] [address] STATES [facility]ALTHL[facility] [id number] [place] [address] [place] Triglyceride [Mass/Vol] 303 mg/dL High <150 [facility] Comment on above: Order Comment: Speci men Type: BLOOD SPECIMENOrdering Facility: [facility] Address: [address] [place] [address] Result Comment: <150 mg/dL, Normal 150-199 mg/dL, Borderline high 200-499 mg/dL, High >499 mg/dL, Very high Performed By: #### 2 4323-8 ####[facility] MILLTOWNCLIA [id number] [place] [address] [place]#### 91553-8 ####[facility]ATORYCLIA [id number] [address] MILLTOWNCLIA [id number] [place] [address] [place] TOXICOLOGY SCREEN, ROUTINE U RINEon 08-15-2024 Amphetamines Confirm (U) [Mass/Vol] Negative Normal Negative [facility] Comment on above: Order Comment: Speci men Type: URINE SPECIMENOrdering Facility: [facility] Address: [address] [place] [address] Result Comment: Cuto ff threshold at 1000 ng/mL. Performed By: #### U TOX2 ####[facility] LABORATORYCLIA [id number] [place] [address] [place] BARBITURATES, URINE Negative Normal Negative [facility] Comment on above: Order Comment: Speci men Type: URINE SPECIMENOrdering Facility: [facility] Address: [address] [place] [address] Result Comment: Cuto ff threshold at 200 ng/mL. Performed By: #### U TOX2 ####[facility] [facility] LABORATORYCLIA [id number] [place] [address] [place] BENZODIAZEPINES, UR Negative Normal Negative [facility] Comment on above: Order Comment: Speci men Type: URINE SPECIMENOrdering Facility: [facility] Address: [address] [place] [address] Result Comment: Cuto ff threshold at 200 ng/mL. Performed By: #### U TOX2 ####[facility] [facility] LABORATORYCLIA [id number] [place] [address] [place] Cannabinoids Screen Ql (U) Negative Normal Negative [facility] Comment on above: Order Comment: Speci men Type: URINE SPECIMENOrdering Facility: [facility] Address: [address] [place] [address] Result Comment: Cuto ff threshold at 50 ng/mL. Performed By: #### U TOX2 ####[employer] LABORATORYCLIA [id number] [place] [address] [place] Cocaine Ql (U) Negative Normal Negative [facility] Comment on above: Order Comment: Speci men Type: URINE SPECIMENOrdering Facility: [facility] Address: [address] [place] [address] Result Comment: Cuto ff threshold at 300 ng/mL. Performed By: #### U TOX2 ####[facility]ORATORYCLIA [id number] [place] [id number] [place] Ethanol (U) [Mass/Vol] <11 Normal <11 [facility] Comment on above: Order Comment: Speci men Type: URINE SPECIMENOrdering Facility: [facility] Address: [address] [place] [address] Performed By: #### U TOX2 ####[facility]ATORYCLIA [id number] [place] [address] [place] Opiates Screen Ql (U) Negative Normal Negative [facility] Comment on above: Order Comment: Speci men Type: URINE SPECIMENOrdering Facility: [facility] Address: [address] [place] [address] Result Comment: Cuto ff threshold at 300 ng/mL. Performed By: #### U TOX2 ####[facility] LABORATORYCLIA [id number] [address] [place] oxyCODONE cutoff Screen (U) [Mass/Vol] Negative Normal Negative [facility] Comment on above: Order Comment: Speci men Type: URINE SPECIMENOrdering Facility: [facility] Address: [address] [place] [address] Performed By: #### U TOX2 ####[facility] LABORATORYCLIA [id number] [place] [id number] [place] Phencyclidine Ql (U) Negative Normal Negative [facility] Comment on above: Order Comment: Speci men Type: URINE SPECIMENOrdering Facility: [facility] Address: [address] [place] [address] Result Comment: Cuto ff threshold at 25 ng/mL. Performed By: #### U TOX2 ####[facility]ORATORYCLIA [id number] [place] [id number] [place] MR/POSTOP.Darlene 03-26-2024 MR/POSTOP.[facility] Medical Records Department [address] [place] [address] Anesthesia Postop Eval I 03/26/24 0828 MR#: [id number] Acct: [id number] Name: KRISTEL CHILEL Rep #: [id number] : 1985 39 From: Javier Farr MD PCP: Dr. Brent Conde MD Status:[facility] Y Race: C Location: [place] [address] Anesthesia: Postop Eval I Current Vital Signs Temperature: 97.6 F Pulse Rate: 76 Blood Pressure: 116/62 Respiratory Rate: 16 Pulse Ox: 99 Oxygen Delivery Method: Room Air Assessment Airway patent: Yes Spontaneous unlabored respirations: Yes Mental status: Awake and Calm nausea: No Vomiting: No Anesthesia Complication: No Fluid Hydration Crystalloid volume administer (ml): 500 Total IV fluid infused: 500 Progress Note Anesthesia document: Postop Eval 1 completed: Yes 03/26/24 0831 Date Javier Farr MD Cosigner Signature: Date CC: Signed [facility] MR/[id number] 03-26-2024 /[facility] Medical Records Department [address] [place] [address] Anesthesia Postop Eval II 03/26/24 1147 MR#: [id number] Acct: [id number] Name: KRISTEL CHILEL Rep #: [id number] : 1985 39 From: Eddie Jeffries MD PCP: Dr. Brent Conde MD Status:[facility] Y Race: C Location: [facility] Anesthesia Postop Eval I Sum Postop Eval Completion status Anesthesia document: Postop Eval 1 completed: Yes Anesthesia Postop Eval I Summary Anesthesia Postop Eval I Summary: Anesthesia Postop Eval I: Assessment Summary Airway patent Yes 03/26/24 08:30 Spontaneous unlabored Yes 03/26/24 08:30 respirations Mental status Awake,Calm 03/26/24 08:30 nausea No 03/26/24 08:30 Vomiting No 03/26/24 08:30 Anesthesia Postop Eval I: Fluid Summary Crystalloid volume administer 500 03/26/24 08:30 (ml) Colloids volume administered ( ml) Blood Product volume administered (ml) Total IV fluid infused 500 03/26/24 08:30 Anesthesia Postop Eval I: Summary Notes Anesthesia Complication No 03/26/24 08:30 Anesthesia Complication Comment: Post-operative progress note Anesthesia: Postop Eval II Evaluation Mental status: Awake Pain Level: 0 nausea: No Vomiting: No 03/26/24 1147 Date Eddie Lopes Signature: Date CC: Signed [facility] Operative Reporton Operative Report [facility] Medical Records Department [address] [place] [address] Operative Report 03/26/24 0734 MR#: [id number] Acct: [id number] Name: KRISTEL CHILEL Rep #: [id number] : 1985 39 From: Miko Erwin MD PCP: Dr. Brent Conde MD Status:[facility] Location: [place] [address] Report of Operation Date of Procedure: 03/26/24 Pre-Operative Diagnosis: left post auricular mass Post-Operative Diagnosis: same Surgery/Procedure Performed:: Excision post auricular mass Surgeon: Miko Erwin Type of Anesthesia: General Anesthesiologist: Javier Farr Estimated Blood Loss (mL): minimal Description of Procedure: Patient was taken to the operating room on 03/26/2024. She was placed in the supine position on the operating room table. She was given sufficient general anesthesia. The left ear was prepped and draped sterilely. 1% lidocaine with epinephrine injected to the skin surrounding the mass. An elliptical incision was made over the mass with a 15 blade. The incision was approximately 1.2 cm long. Dissection was carried down sharply to the mass. Hemostasis was achieved with bipolar cautery. I then used blunt and sharp dissection to dissect around the mass. The mass was delivered and sent for permanent section. Hemostasis was achieved with bipolar cautery. I then irrigated the wound with saline. Hemostasis was ensured. Next, I closed the subcutaneous layer with 4-0 Vicryl. The skin was closed with 6-0 nylon. A Magen dressing was applied. Patient was and awoken about the recovery room in stable condition blood loss minimal, replacement none. Sponge, needle, and instrument count correct at the end of the procedure. 03/26/24 0818 Cosigner Signature (if applicable): CC: Dr. Brent Conde MD; Dr. Miko Erwin MD Signed [facility] Surgery Specimen Level IIIon 03-26-2024 Surgery Specimen Level III ---- Patient Age/Sex Location Account Attending Physician ---- KRISTEL CHILEL 39/F [facility] [id number] Dr. Miko Erwin MD ---- Specimen: [id number] Received: 03/26/24 Status: DANAY Huang Num: [id number] Spec Type: Cyst Subm Dr: Dr. Miko Erwin MD HEADER OPERATION: Excision, cyst left post auricular cyst PRE-OP DIAGNOSIS: Other benign neoplasm skin/left ear and external auric canal TISSUE SUBMITTED: Left, auricular cyst ---- MICROSCOPIC DIAGNOSIS Left auricular cyst, excision: Epidermal inclusion cyst. Mariza 03/27/2024 MICROSCOPIC DESCRIPTION Slides are reviewed. GROSS DESCRIPTION Received in fixative is one container labeled with the patient's name and designated Left auricular cyst. The specimen consists of a bob-white cyst measuring 1.5 x 1.0 x 0.7cm. A piece of skin is noted on the surface measuring 0.6 x 0.1cm. The cyst is serially sectioned and filled with bob-brown cheesy material. The entire specimen is submitted in one cassette. Mariza 03/26/2024 TC:5 CPT:45868 ---- Patient Age/Sex Location Account Attending Physician ---- KRISTEL CHILEL 39/F [facility] [id number] Dr. Miko Erwin MD ---- Signed (signature on file) Dr. Bernard Mcneill MD 03/27/24 1213 ---- [facility] Comment on above: Performed By: #### P SUIII #### [facility] [address] [place] [address], [id number] XR Chest PA and Lateralon IMPRESSION: No acute radiographic abnormality. Try On Baster: [facility] Transcribe Date/Time: Nov 24 2023 1:39P Dictated by : COLT GRIFFIN MD This examination was interpreted and the report reviewed and electronically signed by: COLT GRIFFIN MD on Nov 24 2023 1:40PM [facility] DIVISION OF RADIOLOGY * * *Final Report* [...] soft tissues: Unremarkable. DIVISION OF RADIOLOGY Provider, [facility] Herminio [facility] - 11/24/2023 * * *Final Report* [...] Unremarkable. IMPRESSION IMPRESSION: No acute radiographic abnormality. Try On Baster: [facility] Transcribe Date/Time: Nov 24 2023 1:39P Dictated by : COLT GRIFFIN MD This examination was interpreted and the report reviewed and electronically signed by: COLT GRIFFIN MD on Nov 24 2023 1:40PM EST [facility] Radiology Study observation (narrative) [facility] XR Chest PA and LateralOrder ed By: Cc Provider on 11-24-2023 [facility] Absolute lymphocyte counton 03-15-2022 Lymphocytes Auto (Unsp spec) [#/Vol] 2.44 10*3/uL 0.83-4.51 [facility] Work Phone: Basophil percentageon 2021 Basophils/100 WBC (Bld) 0.7 % 0-1 [facility] Work Phone: Chloride [Moles/Vol] 103 mmol/L 98-107 [facility] Work Phone: Eosinophils/100 WBC (Bld) 3.0 % 0-5 [facility] Work Phone: Glucose [Mass/Vol] 109 mg/dL 74-106 [facility] Work Phone: Comment on above: Fasting Glucose resu lt from 100 to 125 mg/dL suggests IMPAIRED HOMEOSTASIS per A.D.A. criteria. Neutrophils (Bld) [#/Vol] 5.0 10*3/uL 2.0-7.7 [facility] Work Phone: Neutrophils/100 WBC (Bld) 61.6 % 47-70 [facility] Work Phone: Potassium [Moles/Vol] 4.0 mmol/L 3.5-5.1 [facility] Work Phone: Comment on above: Moderate Hemolysis, Result may be falsely increased. Sodium [Moles/Vol] 138 mmol/L 136-145 [facility] Work Phone: WBC (Bld) [#/Vol] 8.1 10*3/uL 4.4-11.0 [facility] Work Phone: Blood erythrocytes count (nu mber/volume)on 03-15-2022 RBC (Bld) [#/Vol] 5.23 10*6/uL 4.2-5.4 [facility] Work Phone: Blood hemoglobin measurement (mass/volume)on 03-15-2022 Hemoglobin (Bld) [Mass/Vol] 15.3 g/dL 12.0-15.0 [facility] Work Phone: Blood lymphocytes/100 leukoc yteson 03-15-2022 Lymphocytes/100 WBC (Bld) 30.1 % 19-41 [facility] Work Phone: Blood monocytes/100 leukocyt eson 03-15-2022 Monocytes/100 WBC (Bld) 4.4 % 0-10 [facility] Work Phone: Blood platelet mean volumeon 03-15-2022 Platelet mean volume (Bld) [Entitic vol] 11.1 fL 6.2-12.0 [facility] Work Phone: Determination of erythrocyte mean corpuscular volume (MCV)on 03-15-2022 MCV (RBC) [Entitic vol] 89.1 fL 81-99 [facility] Work Phone: Hematocrit Auto (Bld) [Volum e fraction]on 03-15-2022 Hematocrit (Bld) [Volume fraction] 46.6 % 37-47 [facility] Work Phone: Laboratory - Chemistry and C hemistry - challengeon 03-15-2022 CO2 [Moles/Vol] 28.0 mmol/L 21.0-32.0 [facility] Work Phone: Urea nitrogen/Creatinine [Mass ratio] 15.0 mg/mg 10-20 [facility] Work Phone: Laboratory - Hematology and Cell countson 03-15-2022 Erythrocyte distribution width (RBC) [Entitic vol] 39.7 fL 35.1-43.9 [facility] Work Phone: Erythrocyte distribution width (RBC) [Ratio] 12.2 % 11.6-14.6 [facility] Work Phone: Immature granulocytes/100 WBC (Bld) 0.200 % 0.0-0.9 [facility] Work Phone: Comment on above: IG% - Immature Granu locytes (promyelocytes, myelocytes and metamyelocytes) > 1% indicates that a LEFT SHIFT is Present. MCH (RBC) [Entitic mass] 29.3 pg 27.0-32.0 [facility] Work Phone: Nucleated RBC/100 WBC (Bld) [Ratio] 0 % 0-5 [facility] Work Phone: MCHC Auto (RBC) [Mass/Vol]on 03-15-2022 MCHC (RBC) [Mass/Vol] 32.8 g/dL 32-36 [facility] Work Phone: No Panel Informationon 03-15 Estimated Creatinine Clearance Calc 62.50 ml/min [facility] Work Phone: Estimated GFR (MDRD) Amer 87 mL/min >60 [facility] Work Phone: Comment on above: GFR Calc Estimated GFR (MDRD) Non-Af Amer 72 mL/min >60 [facility] Work Phone: Comment on above: Non- GFR Calc Troponin I High Sensitivity < 3 pg/mL 3.0-54.0 [facility] Work Phone: Comment on above: Please Note: [place] t Units and Gender Specific Reference Ranges. For more information see Policy Stat Procedure Larose High Sensitivity Troponin (TNIH) and attachments. Platelets bldon 03-15-2022 Platelets (Bld) [#/Vol] 175 10*3/uL 150-450 [facility] Work Phone: Serum or plasma calcium stevie urement (mass/volume)on 03-15-2022 Calcium [Mass/Vol] 10.0 mg/dL 8.5-10.1 [facility] Work Phone: Serum or plasma creatinine m easurement (mass/volume)on 03-15-2022 Creatinine [Mass/Vol] 0.93 mg/dL 0.55-1.02 [facility] Work Phone: Comment on above: The validity of the calculated GFR & GFRAA in patients over 70 years has not been determined. Clinical correlation is essential. Serum or plasma urea nitroge n measurement (mass/volume)on 03-15-2022 Urea nitrogen [Mass/Vol] 14 mg/dL 7-18 [facility] Work Phone: Thin prep Papanicolaou smear with manual screeningon 03-15-2022 Thin prep Papanicolaou smear with manual screening 7 5-15 [facility] Work Phone: Absolute lymphocyte counton 02-16-2022 Lymphocytes Auto (Unsp spec) [#/Vol] 2.65 10*3/uL 0.83-4.51 [facility] Work Phone: Amorphous sediment detection in urine sediment by light microscopyon 02-16-2022 Amorphous sediment LM Ql (Urine sed) 1+ [facility] Work Phone: Basophil percentageon 2021 Basophils/100 WBC (Bld) 0.4 % 0-1 [facility] Work Phone: Bilirubin [Mass/Vol] 0.30 mg/dL 0.20-1.00 [facility] Work Phone: Comment on above: For patients on eltr ombopag therapy, use of Dimension Larose TBIL is not recommended. Chloride [Moles/Vol] 107 mmol/L 98-107 [facility] Work Phone: Eosinophils/100 WBC (Bld) 3.4 % 0-5 [facility] Work Phone: Glucose [Mass/Vol] 147 mg/dL 74-106 [facility] Work Phone: Comment on above: Fasting Glucose resu lt greater than or equal to 126 mg/dL suggests DIABETES MELLITUS per A.D.A. criteria. Neutrophils (Bld) [#/Vol] 7.0 10*3/uL 2.0-7.7 [facility] Work Phone: Neutrophils/100 WBC (Bld) 66.1 % 47-70 [facility] Work Phone: Potassium [Moles/Vol] 4.3 mmol/L 3.5-5.1 [facility] Work Phone: Comment on above: Slight Hemolysis, Re sult may be falsely increased. Protein [Mass/Vol] 7.4 g/dL 6.4-8.2 [facility] Work Phone: Sodium [Moles/Vol] 137 mmol/L 136-145 [facility] Work Phone: WBC (Bld) [#/Vol] 10.6 10*3/uL 4.4-11.0 [facility] Work Phone: Basophil percentage 0 SEEN /hpf 0-5 [facility] Work Phone: Bilirubin Test strip Ql (U)o n 08-30-2022 Bilirubin Ql (U) Negative Negative [facility] Work Phone: Blood erythrocytes count (nu mber/volume)on 02-16-2022 RBC (Bld) [#/Vol] 4.76 10*6/uL 4.2-5.4 [facility] Work Phone: Blood hemoglobin measurement (mass/volume)on 02-16-2022 Hemoglobin (Bld) [Mass/Vol] 14.2 g/dL 12.0-15.0 [facility] Work Phone: Blood lymphocytes/100 leukoc yteson 02-16-2022 Lymphocytes/100 WBC (Bld) 24.9 % 19-41 [facility] Work Phone: Blood monocytes/100 leukocyt eson 02-16-2022 Monocytes/100 WBC (Bld) 4.8 % 0-10 [facility] Work Phone: Blood platelet mean volumeon 02-16-2022 Platelet mean volume (Bld) [Entitic vol] 10.7 fL 6.2-12.0 [facility] Work Phone: Determination of erythrocyte mean corpuscular volume (MCV)on 02-16-2022 MCV (RBC) [Entitic vol] 88.9 fL 81-99 [facility] Work Phone: Direct bilirubinon Bilirubin.direct [Mass/Vol] 0.07 mg/dL 0.00-0.30 [facility] Work Phone: Hematocrit Auto (Bld) [Volum e fraction]on 02-16-2022 Hematocrit (Bld) [Volume fraction] 42.3 % 37-47 [facility] Work Phone: Ketones Test strip Ql (U)on 02-16-2022 Ketones Ql (U) Negative Negative [facility] Work Phone: Laboratory - Chemistry and C hemistry - challengeon 02-16-2022 ALP [Catalytic activity/Vol] 66 U/L 45-117 [facility] Work Phone: ALT [Catalytic activity/Vol] 45 U/L 13-56 [facility] Work Phone: CO2 [Moles/Vol] 24.0 mmol/L 21.0-32.0 [facility] Work Phone: Globulin (S) [Mass/Vol] 4.0 g/dL 2.2-4.2 [facility] Work Phone: Lipase [Catalytic activity/Vol] 63 U/L 73-393 [facility] Work Phone: Magnesium [Mass/Vol] 2.3 mg/dL 1.6-2.6 [facility] Work Phone: Comment on above: Slight Hemolysis, Re sult may be falsely increased. Urea nitrogen/Creatinine [Mass ratio] 11.2 mg/mg 10-20 [facility] Work Phone: Laboratory - Hematology and Cell countson 02-16-2022 Erythrocyte distribution width (RBC) [Entitic vol] 39.6 fL 35.1-43.9 [facility] Work Phone: Erythrocyte distribution width (RBC) [Ratio] 12.2 % 11.6-14.6 [facility] Work Phone: Immature granulocytes/100 WBC (Bld) 0.400 % 0.0-0.9 [facility] Work Phone: Comment on above: IG% - Immature Granu locytes (promyelocytes, myelocytes and metamyelocytes) > 1% indicates that a LEFT SHIFT is Present. MCH (RBC) [Entitic mass] 29.8 pg 27.0-32.0 [facility] Work Phone: Nucleated RBC/100 WBC (Bld) [Ratio] 0 % 0-5 [facility] Work Phone: MCHC Auto (RBC) [Mass/Vol]on 02-16-2022 MCHC (RBC) [Mass/Vol] 33.6 g/dL 32-36 [facility] Work Phone: Mucus LM Ql (Urine sed)on Mucus Ql (Urine sed) 0 SEEN /hpf [facility] Work Phone: Nitrite Test strip Ql (U)on 02-16-2022 Nitrite Ql (U) Negative Negative [facility] Work Phone: No Panel Informationon 02-16 Estimated Creatinine Clearance Calc 59.31 ml/min [facility] Work Phone: Estimated GFR (MDRD) Amer 82 mL/min >60 [facility] Work Phone: Comment on above: GFR Calc Estimated GFR (MDRD) Non-Af Amer 68 mL/min >60 [facility] Work Phone: Comment on above: Non- GFR Calc Platelets bldon 02-16-2022 Platelets (Bld) [#/Vol] 175 10*3/uL 150-450 [facility] Work Phone: Protein Test strip Ql (U)on 02-16-2022 Protein Ql (U) Negative Negative [facility] Work Phone: Serum or plasma albumin stevie urement (mass/volume)on 02-16-2022 Albumin [Mass/Vol] 3.4 g/dL 3.2-5.0 [facility] Work Phone: Serum or plasma calcium stevie urement (mass/volume)on 02-16-2022 Calcium [Mass/Vol] 9.1 mg/dL 8.5-10.1 [facility] Work Phone: Serum or plasma creatinine m easurement (mass/volume)on 02-16-2022 Creatinine [Mass/Vol] 0.98 mg/dL 0.55-1.02 [facility] Work Phone: Comment on above: The validity of the calculated GFR & GFRAA in patients over 70 years has not been determined. Clinical correlation is essential. Serum or plasma urea nitroge n measurement (mass/volume)on 02-16-2022 Urea nitrogen [Mass/Vol] 11 mg/dL 7-18 [facility] Work Phone: Squamous epithelial cells de tection in urine sediment by light microscopyon 02-16-2022 Epithelial cells.squamous LM Ql (Urine sed) 5-10 SEEN /hpf 5-10 [facility] Work Phone: Thin prep Papanicolaou smear with manual screeningon 02-16-2022 Thin prep Papanicolaou smear with manual screening 19 U/L 15-37 [facility] Work Phone: Comment on above: Slight Hemolysis, Re sult may be falsely increased. Thin prep Papanicolaou smear with manual screening 6 5-15 [facility] Work Phone: Urine blood detectionon 01-20 0 RBC Ql (U) Negative Negative [facility] Work Phone: RBC Ql (U) 0 SEEN /hpf 0-5 [facility] Work Phone: Urine clarityon 02-16-2022 Clarity (U) Sl. Cloudy Clear [facility] Work Phone: Urine color determinationon 02-16-2022 Color (U) Yellow Yellow [facility] Work Phone: Urine glucose detectionon Glucose Ql (U) Normal mg/dl Normal [facility] Work Phone: Urine leukocyte esterase det ection by dipstickon 02-16-2022 Leukocyte esterase Test strip Ql (U) Negative Negative [facility] Work Phone: Urine pHon 02-16-2022 pH (U) 7.0 [pH] 5.0 - 8.0 [facility] Work Phone: Urine sediment bacteria coun t by microscopy (number/high power field)on 02-16-2022 Bacteria LM.HPF (Urine sed) [#/Area] 1 /[HPF] None Seen [facility] Work Phone: Urine specific gravity measu rementon 02-16-2022 Specific gravity (U) [Rel density] 1.010 1.002-1.030 [facility] Work Phone: Urobilinogen Auto test strip Ql (U)on 02-16-2022 Urobilinogen Ql (U) 1 mg/dl Normal [facility] Work Phone: Absolute lymphocyte counton 02-01-2022 Lymphocytes Auto (Unsp spec) [#/Vol] 1.70 10*3/uL 0.83-4.51 [facility] Work Phone: Basophil percentageon 2021 Basophil percentage 0-5 SEEN /hpf 0-5 [facility] Work Phone: Basophils/100 WBC (Bld) 0.6 % 0-1 [facility] Work Phone: Bilirubin [Mass/Vol] 0.40 mg/dL 0.20-1.00 [facility] Work Phone: Comment on above: For patients on eltr ombopag therapy, use of Dimension [place] TBIL is not recommended. Chloride [Moles/Vol] 105 mmol/L 98-107 [facility] Work Phone: Eosinophils/100 WBC (Bld) 2.3 % 0-5 [facility] Work Phone: Glucose [Mass/Vol] 131 mg/dL 74-106 [facility] Work Phone: Comment on above: Fasting Glucose resu lt greater than or equal to 126 mg/dL suggests DIABETES MELLITUS per A.D.A. criteria. Neutrophils (Bld) [#/Vol] 7.5 10*3/uL 2.0-7.7 [facility] Work Phone: Neutrophils/100 WBC (Bld) 75.7 % 47-70 [facility] Work Phone: Potassium [Moles/Vol] 4.2 mmol/L 3.5-5.1 [facility] Work Phone: Protein [Mass/Vol] 7.8 g/dL 6.4-8.2 [facility] Work Phone: Sodium [Moles/Vol] 138 mmol/L 136-145 [facility] Work Phone: WBC (Bld) [#/Vol] 10.0 10*3/uL 4.4-11.0 [facility] Work Phone: Bilirubin Test strip Ql (U)o n 02-01-2022 Bilirubin Ql (U) 1 mg/dL Negative [facility] Work Phone: Comment on above: COLOR OF URINE MAY A FFECT DIPSTICK RESULTS. Blood erythrocytes count (nu mber/volume)on 02-01-2022 RBC (Bld) [#/Vol] 4.93 10*6/uL 4.2-5.4 [facility] Work Phone: Blood hemoglobin measurement (mass/volume)on 02-01-2022 Hemoglobin (Bld) [Mass/Vol] 14.7 g/dL 12.0-15.0 [facility] Work Phone: Blood lymphocytes/100 leukoc yteson 02-01-2022 Lymphocytes/100 WBC (Bld) 17.1 % 19-41 [facility] Work Phone: Blood monocytes/100 leukocyt eson 02-01-2022 Monocytes/100 WBC (Bld) 4.0 % 0-10 [facility] Work Phone: Blood platelet mean volumeon 02-01-2022 Platelet mean volume (Bld) [Entitic vol] 10.8 fL 6.2-12.0 [facility] Work Phone: Determination of erythrocyte mean corpuscular volume (MCV)on 02-01-2022 MCV (RBC) [Entitic vol] 89.0 fL 81-99 [facility] Work Phone: Hematocrit Auto (Bld) [Volum e fraction]on 02-01-2022 Hematocrit (Bld) [Volume fraction] 43.9 % 37-47 [facility] Work Phone: Ketones Test strip Ql (U)on 02-01-2022 Ketones Ql (U) 5 mg/dl Negative [facility] Work Phone: Laboratory - Chemistry and C hemistry - challengeon 02-01-2022 ALP [Catalytic activity/Vol] 65 U/L 45-117 [facility] Work Phone: ALT [Catalytic activity/Vol] 59 U/L 13-56 [facility] Work Phone: CO2 [Moles/Vol] 27.0 mmol/L 21.0-32.0 [facility] Work Phone: Globulin (S) [Mass/Vol] 4.2 g/dL 2.2-4.2 [facility] Work Phone: Lipase [Catalytic activity/Vol] 59 U/L 73-393 [facility] Work Phone: Urea nitrogen/Creatinine [Mass ratio] 9.3 mg/mg 10-20 [facility] Work Phone: Laboratory - Hematology and Cell countson 02-01-2022 Erythrocyte distribution width (RBC) [Entitic vol] 39.2 fL 35.1-43.9 [facility] Work Phone: Erythrocyte distribution width (RBC) [Ratio] 12.1 % 11.6-14.6 [facility] Work Phone: Immature granulocytes/100 WBC (Bld) 0.300 % 0.0-0.9 [facility] Work Phone: Comment on above: IG% - Immature Granu locytes (promyelocytes, myelocytes and metamyelocytes) > 1% indicates that a LEFT SHIFT is Present. MCH (RBC) [Entitic mass] 29.8 pg 27.0-32.0 [facility] Work Phone: Nucleated RBC/100 WBC (Bld) [Ratio] 0 % 0-5 [facility] Work Phone: MCHC Auto (RBC) [Mass/Vol]on 02-01-2022 MCHC (RBC) [Mass/Vol] 33.5 g/dL 32-36 [facility] Work Phone: Mucus LM Ql (Urine sed)on Mucus Ql (Urine sed) 4+ /hpf [facility] Work Phone: Nitrite Test strip Ql (U)on 02-01-2022 Nitrite Ql (U) Negative Negative [facility] Work Phone: No Panel Informationon 02-01 Estimated Creatinine Clearance Calc 60.55 ml/min [facility] Work Phone: Estimated GFR (MDRD) Amer 84 mL/min >60 [facility] Work Phone: Comment on above: GFR Calc Estimated GFR (MDRD) Non-Af Amer 69 mL/min >60 [facility] Work Phone: Comment on above: Non- GFR Calc Platelets bldon 02-01-2022 Platelets (Bld) [#/Vol] 180 10*3/uL 150-450 [facility] Work Phone: Protein Test strip Ql (U)on 02-01-2022 Protein Ql (U) 15 mg/dl Negative [facility] Work Phone: Serum or plasma albumin stevie urement (mass/volume)on 02-01-2022 Albumin [Mass/Vol] 3.6 g/dL 3.2-5.0 [facility] Work Phone: Serum or plasma albumin/glob ulin mass ratioon 02-01-2022 Albumin/Globulin [Mass ratio] 0.9 {ratio} 0.9-2.4 [facility] Work Phone: Serum or plasma calcium stevie urement (mass/volume)on 02-01-2022 Calcium [Mass/Vol] 9.2 mg/dL 8.5-10.1 [facility] Work Phone: Serum or plasma creatinine m easurement (mass/volume)on 02-01-2022 Creatinine [Mass/Vol] 0.96 mg/dL 0.55-1.02 [facility] Work Phone: Comment on above: The validity of the calculated GFR & GFRAA in patients over 70 years has not been determined. Clinical correlation is essential. Serum or plasma urea nitroge n measurement (mass/volume)on 02-01-2022 Urea nitrogen [Mass/Vol] 9 mg/dL 7-18 [facility] Work Phone: Squamous epithelial cells de tection in urine sediment by light microscopyon 02-01-2022 Epithelial cells.squamous LM Ql (Urine sed) 5-10 SEEN /hpf 5-10 [facility] Work Phone: Thin prep Papanicolaou smear with manual screeningon 02-01-2022 Thin prep Papanicolaou smear with manual screening 24 U/L 15-37 [facility] Work Phone: Thin prep Papanicolaou smear with manual screening 6 -15 [facility] Work Phone: Urine blood detectionon 01-18 RBC Ql (U) Negative Negative [facility] Work Phone: RBC Ql (U) 0 SEEN /hpf 0-5 [facility] Work Phone: Urine clarityon 02-01-2022 Clarity (U) Clear Clear [facility] Work Phone: Urine color determinationon 02-01-2022 Color (U) Yellow Yellow [facility] Work Phone: Urine glucose detectionon Glucose Ql (U) Normal mg/dl Normal [facility] Work Phone: Urine leukocyte esterase det ection by dipstickon 02-01-2022 Leukocyte esterase Test strip Ql (U) Negative Negative [facility] Work Phone: Urine pHon 02-01-2022 pH (U) 6.0 [pH] 5.0 - 8.0 [facility] Work Phone: Urine sediment bacteria coun t by microscopy (number/high power field)on 02-01-2022 Bacteria LM.HPF (Urine sed) [#/Area] 3 /[HPF] None Seen [facility] Work Phone: Urine specific gravity measu rementon 02-01-2022 Specific gravity (U) [Rel density] 1.025 1.002-1.030 [facility] Work Phone: Urobilinogen Auto test strip Ql (U)on 02-01-2022 Urobilinogen Ql (U) 1 mg/dl Normal [facility] Work Phone: No Panel Informationon 12-12 Troponin I High Sensitivity < 3 pg/mL 3.0-54.0 [facility] Work Phone: Comment on above: Please Note: [place] Units and Gender Specific Reference Ranges. For more information see Policy Stat Procedure [place] High Sensitivity Troponin (TNIH) and attachments. Absolute lymphocyte counton 12-11-2021 Lymphocytes Auto (Unsp spec) [#/Vol] 3.46 10*3/uL 0.83-4.51 [facility] Work Phone: Basophil percentageon 2021 Basophils/100 WBC (Bld) 0.6 % 0-1 [facility] Work Phone: Chloride [Moles/Vol] 105 mmol/L 98-107 [facility] Work Phone: Eosinophils/100 WBC (Bld) 2.7 % 0-5 [facility] Work Phone: Glucose [Mass/Vol] 114 mg/dL 74-106 [facility] Work Phone: Comment on above: Fasting Glucose resu lt from 100 to 125 mg/dL suggests IMPAIRED HOMEOSTASIS per A.D.A. criteria. Neutrophils (Bld) [#/Vol] 5.7 10*3/uL 2.0-7.7 [facility] Work Phone: Neutrophils/100 WBC (Bld) 56.6 % 47-70 [facility] Work Phone: Potassium [Moles/Vol] 4.0 mmol/L 3.5-5.1 [facility] Work Phone: Comment on above: Slight Hemolysis, Re sult may be falsely increased. Sodium [Moles/Vol] 138 mmol/L 136-145 [facility] Work Phone: WBC (Bld) [#/Vol] 10.1 10*3/uL 4.4-11.0 [facility] Work Phone: Blood erythrocytes count (nu mber/volume)on 12-11-2021 RBC (Bld) [#/Vol] 5.07 10*6/uL 4.2-5.4 [facility] Work Phone: Blood hemoglobin measurement (mass/volume)on 12-11-2021 Hemoglobin (Bld) [Mass/Vol] 15.3 g/dL 12.0-15.0 [facility] Work Phone: Blood lymphocytes/100 leukoc yteson 12-11-2021 Lymphocytes/100 WBC (Bld) 34.3 % 19-41 [facility] Work Phone: Blood monocytes/100 leukocyt eson 12-11-2021 Monocytes/100 WBC (Bld) 4.9 % 0-10 [facility] Work Phone: Blood platelet mean volumeon 12-11-2021 Platelet mean volume (Bld) [Entitic vol] 11.0 fL 6.2-12.0 [facility] Work Phone: Determination of erythrocyte mean corpuscular volume (MCV)on 12-11-2021 MCV (RBC) [Entitic vol] 87.0 fL 81-99 [facility] Work Phone: Hematocrit Auto (Bld) [Volum e fraction]on 12-11-2021 Hematocrit (Bld) [Volume fraction] 44.1 % 37-47 [facility] Work Phone: Laboratory - Chemistry and C hemistry - challengeon 12-11-2021 CO2 [Moles/Vol] 25.0 mmol/L 21.0-32.0 [facility] Work Phone: Urea nitrogen/Creatinine [Mass ratio] 14.3 mg/mg 10-20 [facility] Work Phone: Laboratory - Hematology and Cell countson 12-11-2021 Erythrocyte distribution width (RBC) [Entitic vol] 39.2 fL 35.1-43.9 [facility] Work Phone: Erythrocyte distribution width (RBC) [Ratio] 12.3 % 11.6-14.6 [facility] Work Phone: Immature granulocytes/100 WBC (Bld) 0.900 % 0.0-0.9 [facility] Work Phone: Comment on above: IG% - Immature Granu locytes (promyelocytes, myelocytes and metamyelocytes) > 1% indicates that a LEFT SHIFT is Present. MCH (RBC) [Entitic mass] 30.2 pg 27.0-32.0 [facility] Work Phone: Nucleated RBC/100 WBC (Bld) [Ratio] 0 % 0-5 [facility] Work Phone: MCHC Auto (RBC) [Mass/Vol]on 12-11-2021 MCHC (RBC) [Mass/Vol] 34.7 g/dL 32-36 [facility] Work Phone: No Panel Informationon 12-11 Estimated Creatinine Clearance Calc 64.49 ml/min [facility] Work Phone: Estimated GFR (MDRD) Amer 90 mL/min >60 [facility] Work Phone: Comment on above: GFR Calc Estimated GFR (MDRD) Non-Af Amer 74 mL/min >60 [facility] Work Phone: Comment on above: Non- GFR Calc Platelets bldon 12-11-2021 Platelets (Bld) [#/Vol] 180 10*3/uL 150-450 [facility] Work Phone: Serum or plasma calcium stevie urement (mass/volume)on 12-11-2021 Calcium [Mass/Vol] 9.5 mg/dL 8.5-10.1 [facility] Work Phone: Serum or plasma creatinine m easurement (mass/volume)on 12-11-2021 Creatinine [Mass/Vol] 0.91 mg/dL 0.55-1.02 [facility] Work Phone: Comment on above: The validity of the calculated GFR & GFRAA in patients over 70 years has not been determined. Clinical correlation is essential. Serum or plasma urea nitroge n measurement (mass/volume)on 12-11-2021 Urea nitrogen [Mass/Vol] 13 mg/dL 7-18 [facility] Work Phone: Thin prep Papanicolaou smear with manual screeningon 12-11-2021 Thin prep Papanicolaou smear with manual screening 8 5-15 [facility] Work Phone: Absolute lymphocyte counton 11-30-2021 Lymphocytes Auto (Unsp spec) [#/Vol] 3.30 10*3/uL 0.83-4.51 [facility] Work Phone: Basophil percentageon 2021 Basophils/100 WBC (Bld) 0.5 % 0-1 [facility] Work Phone: Chloride [Moles/Vol] 107 mmol/L 98-107 [facility] Work Phone: Eosinophils/100 WBC (Bld) 2.2 % 0-5 [facility] Work Phone: Glucose [Mass/Vol] 117 mg/dL 74-106 [facility] Work Phone: Comment on above: Slight Lipemia, Resu lt may be falsely increased.Fasting Glucose result from 100 to 125 mg/dL suggests IMPAIRED HOMEOSTASIS per A.D.A. criteria. Neutrophils (Bld) [#/Vol] 5.6 10*3/uL 2.0-7.7 [facility] Work Phone: Neutrophils/100 WBC (Bld) 58.3 % 47-70 [facility] Work Phone: Potassium [Moles/Vol] 3.8 mmol/L 3.5-5.1 [facility] Work Phone: Comment on above: Moderate Hemolysis, Result may be falsely increased.-Slight Lipemia, Result may be falsely increased. Sodium [Moles/Vol] 139 mmol/L 136-145 [facility] Work Phone: WBC (Bld) [#/Vol] 9.6 10*3/uL 4.4-11.0 [facility] Work Phone: Blood erythrocytes count (nu mber/volume)on 11-30-2021 RBC (Bld) [#/Vol] 5.07 10*6/uL 4.2-5.4 [facility] Work Phone: Blood hemoglobin measurement (mass/volume)on 11-30-2021 Hemoglobin (Bld) [Mass/Vol] 15.5 g/dL 12.0-15.0 [facility] Work Phone: Blood lymphocytes/100 leukoc yteson 11-30-2021 Lymphocytes/100 WBC (Bld) 34.5 % 19-41 [facility] Work Phone: Blood monocytes/100 leukocyt eson 11-30-2021 Monocytes/100 WBC (Bld) 4.2 % 0-10 [facility] Work Phone: Blood platelet mean volumeon 11-30-2021 Platelet mean volume (Bld) [Entitic vol] 11.1 fL 6.2-12.0 [facility] Work Phone: Determination of erythrocyte mean corpuscular volume (MCV)on 11-30-2021 MCV (RBC) [Entitic vol] 88.4 fL 81-99 [facility] Work Phone: Hematocrit Auto (Bld) [Volum e fraction]on 11-30-2021 Hematocrit (Bld) [Volume fraction] 44.8 % 37-47 [facility] Work Phone: Laboratory - Chemistry and C hemistry - challengeon 11-30-2021 CO2 [Moles/Vol] 25.0 mmol/L 21.0-32.0 [facility] Work Phone: Comment on above: Slight Lipemia, Resu lt may be falsely increased. Urea nitrogen/Creatinine [Mass ratio] 15.5 mg/mg 10-20 [facility] Work Phone: Laboratory - Hematology and Cell countson 11-30-2021 Erythrocyte distribution width (RBC) [Entitic vol] 40.3 fL 35.1-43.9 [facility] Work Phone: Erythrocyte distribution width (RBC) [Ratio] 12.4 % 11.6-14.6 [facility] Work Phone: Immature granulocytes/100 WBC (Bld) 0.300 % 0.0-0.9 [facility] Work Phone: Comment on above: IG% - Immature Granu locytes (promyelocytes, myelocytes and metamyelocytes) > 1% indicates that a LEFT SHIFT is Present. MCH (RBC) [Entitic mass] 30.6 pg 27.0-32.0 [facility] Work Phone: Nucleated RBC/100 WBC (Bld) [Ratio] 0 % 0-5 [facility] Work Phone: MCHC Auto (RBC) [Mass/Vol]on 11-30-2021 MCHC (RBC) [Mass/Vol] 34.6 g/dL 32-36 [facility] Work Phone: No Panel Informationon 11-30 Troponin I High Sensitivity < 3 pg/mL 3.0-54.0 [facility] Work Phone: Comment on above: Please Note: [place] Units and Gender Specific Reference Ranges. For more information see Policy Stat Procedure [place] High Sensitivity Troponin (TNIH) and attachments. Estimated Creatinine Clearance Calc 65.21 ml/min [facility] Work Phone: Estimated GFR (MDRD) Amer 90 mL/min >60 [facility] Work Phone: Comment on above: GFR Calc Estimated GFR (MDRD) Non-Af Amer 75 mL/min >60 [facility] Work Phone: Comment on above: Non- GFR Calc Platelets bldon 11-30-2021 Platelets (Bld) [#/Vol] 188 10*3/uL 150-450 [facility] Work Phone: Serum or plasma calcium stevie urement (mass/volume)on 11-30-2021 Calcium [Mass/Vol] 9.4 mg/dL 8.5-10.1 [facility] Work Phone: Comment on above: Slight Lipemia, Resu lt may be falsely increased. Serum or plasma creatinine m easurement (mass/volume)on 11-30-2021 Creatinine [Mass/Vol] 0.90 mg/dL 0.55-1.02 [facility] Work Phone: Comment on above: Slight Lipemia, Resu lt may be falsely increased.The validity of the calculated GFR & GFRAA in patients over 70 years has not been determined. Clinical correlation is essential. Serum or plasma urea nitroge n measurement (mass/volume)on 11-30-2021 Urea nitrogen [Mass/Vol] 14 mg/dL 7-18 [facility] Work Phone: Comment on above: Slight Lipemia, Resu lt may be falsely increased. Thin prep Papanicolaou smear with manual screeningon 11-30-2021 Thin prep Papanicolaou smear with manual screening 7 5-15 [facility] Work Phone: Absolute lymphocyte counton 11-09-2021 Lymphocytes Auto (Unsp spec) [#/Vol] 3.49 10*3/uL 0.83-4.51 [facility] Work Phone: Basophil percentageon 2021 Basophils/100 WBC (Bld) 0.7 % 0-1 [facility] Work Phone: Chloride [Moles/Vol] 108 mmol/L 98-107 [facility] Work Phone: Eosinophils/100 WBC (Bld) 3.6 % 0-5 [facility] Work Phone: Glucose [Mass/Vol] 140 mg/dL 74-106 [facility] Work Phone: Comment on above: Fasting Glucose resu lt greater than or equal to 126 mg/dL suggests DIABETES MELLITUS per A.D.A. criteria. Neutrophils (Bld) [#/Vol] 4.5 10*3/uL 2.0-7.7 [facility] Work Phone: Neutrophils/100 WBC (Bld) 51.3 % 47-70 [facility] Work Phone: Potassium [Moles/Vol] 3.5 mmol/L 3.5-5.1 [facility] Work Phone: Comment on above: Slight Hemolysis, Re sult may be falsely increased. Sodium [Moles/Vol] 139 mmol/L 136-145 [facility] Work Phone: WBC (Bld) [#/Vol] 8.8 10*3/uL 4.4-11.0 [facility] Work Phone: Blood erythrocytes count (nu mber/volume)on 11-09-2021 RBC (Bld) [#/Vol] 4.41 10*6/uL 4.2-5.4 [facility] Work Phone: Blood hemoglobin measurement (mass/volume)on 11-09-2021 Hemoglobin (Bld) [Mass/Vol] 13.5 g/dL 12.0-15.0 [facility] Work Phone: Blood lymphocytes/100 leukoc yteson 11-09-2021 Lymphocytes/100 WBC (Bld) 39.7 % 19-41 [facility] Work Phone: Blood monocytes/100 leukocyt eson 11-09-2021 Monocytes/100 WBC (Bld) 4.4 % 0-10 [facility] Work Phone: Blood platelet mean volumeon 11-09-2021 Platelet mean volume (Bld) [Entitic vol] 11.6 fL 6.2-12.0 [facility] Work Phone: Determination of erythrocyte mean corpuscular volume (MCV)on 11-09-2021 MCV (RBC) [Entitic vol] 89.1 fL 81-99 [facility] Work Phone: Hematocrit Auto (Bld) [Volum e fraction]on 11-09-2021 Hematocrit (Bld) [Volume fraction] 39.3 % 37-47 [facility] Work Phone: Laboratory - Chemistry and C hemistry - challengeon 11-09-2021 CO2 [Moles/Vol] 22.0 mmol/L 21.0-32.0 [facility] Work Phone: Urea nitrogen/Creatinine [Mass ratio] 16.5 mg/mg 10-20 [facility] Work Phone: Laboratory - Hematology and Cell countson 11-09-2021 Erythrocyte distribution width (RBC) [Entitic vol] 39.9 fL 35.1-43.9 [facility] Work Phone: Erythrocyte distribution width (RBC) [Ratio] 12.2 % 11.6-14.6 [facility] Work Phone: Immature granulocytes/100 WBC (Bld) 0.300 % 0.0-0.9 [facility] Work Phone: Comment on above: IG% - Immature Granu locytes (promyelocytes, myelocytes and metamyelocytes) > 1% indicates that a LEFT SHIFT is Present. MCH (RBC) [Entitic mass] 30.6 pg 27.0-32.0 [facility] Work Phone: Nucleated RBC/100 WBC (Bld) [Ratio] 0 % 0-5 [facility] Work Phone: MCHC Auto (RBC) [Mass/Vol]on 11-09-2021 MCHC (RBC) [Mass/Vol] 34.4 g/dL 32-36 [facility] Work Phone: No Panel Informationon 11-09 Estimated Creatinine Clearance Calc 60.50 ml/min [facility] Work Phone: Estimated GFR (MDRD) Amer 83 mL/min >60 [facility] Work Phone: Comment on above: GFR Calc Estimated GFR (MDRD) Non-Af Amer 69 mL/min >60 [facility] Work Phone: Comment on above: Non- GFR Calc Troponin I High Sensitivity < 3 pg/mL 3.0-54.0 [facility] Work Phone: Comment on above: Please Note: [place] Units and Gender Specific Reference Ranges. For more information see Policy Stat Procedure [place] High Sensitivity Troponin (TNIH) and attachments. Platelets bldon 11-09-2021 Platelets (Bld) [#/Vol] 143 10*3/uL 150-450 [facility] Work Phone: Serum or plasma calcium stevie urement (mass/volume)on 11-09-2021 Calcium [Mass/Vol] 8.9 mg/dL 8.5-10.1 [facility] Work Phone: Serum or plasma creatinine m easurement (mass/volume)on 11-09-2021 Creatinine [Mass/Vol] 0.97 mg/dL 0.55-1.02 [facility] Work Phone: Comment on above: The validity of the calculated GFR & GFRAA in patients over 70 years has not been determined. Clinical correlation is essential. Serum or plasma urea nitroge n measurement (mass/volume)on 11-09-2021 Urea nitrogen [Mass/Vol] 16 mg/dL 7-18 [facility] Work Phone: Thin prep Papanicolaou smear with manual screeningon 11-09-2021 Thin prep Papanicolaou smear with manual screening 9 5-15 [facility] Work Phone: Absolute lymphocyte counton 10-07-2021 Lymphocytes Auto (Unsp spec) [#/Vol] 2.64 10*3/uL 0.83-4.51 [facility] Work Phone: Basophil percentageon 2021 Basophils/100 WBC (Bld) 0.6 % 0-1 [facility] Work Phone: Chloride [Moles/Vol] 107 mmol/L 98-107 [facility] Work Phone: Eosinophils/100 WBC (Bld) 2.9 % 0-5 [facility] Work Phone: Glucose [Mass/Vol] 95 mg/dL 74-106 [facility] Work Phone: Neutrophils (Bld) [#/Vol] 5.5 10*3/uL 2.0-7.7 [facility] Work Phone: Neutrophils/100 WBC (Bld) 61.3 % 47-70 [facility] Work Phone: Potassium [Moles/Vol] 4.1 mmol/L 3.5-5.1 [facility] Work Phone: Comment on above: Moderate Hemolysis, Result may be falsely increased. Sodium [Moles/Vol] 139 mmol/L 136-145 [facility] Work Phone: WBC (Bld) [#/Vol] 9.0 10*3/uL 4.4-11.0 [facility] Work Phone: Blood erythrocytes count (nu mber/volume)on 10-07-2021 RBC (Bld) [#/Vol] 4.94 10*6/uL 4.2-5.4 [facility] Work Phone: Blood hemoglobin measurement (mass/volume)on 10-07-2021 Hemoglobin (Bld) [Mass/Vol] 15.1 g/dL 12.0-15.0 [facility] Work Phone: Blood lymphocytes/100 leukoc yteson 10-07-2021 Lymphocytes/100 WBC (Bld) 29.4 % 19-41 [facility] Work Phone: Blood monocytes/100 leukocyt eson 10-07-2021 Monocytes/100 WBC (Bld) 5.5 % 0-10 [facility] Work Phone: Blood platelet mean volumeon 10-07-2021 Platelet mean volume (Bld) [Entitic vol] 11.6 fL 6.2-12.0 [facility] Work Phone: Determination of erythrocyte mean corpuscular volume (MCV)on 10-07-2021 MCV (RBC) [Entitic vol] 88.9 fL 81-99 [facility] Work Phone: Hematocrit Auto (Bld) [Volum e fraction]on 10-07-2021 Hematocrit (Bld) [Volume fraction] 43.9 % 37-47 [facility] Work Phone: Laboratory - Chemistry and C hemistry - challengeon 10-07-2021 CO2 [Moles/Vol] 24.0 mmol/L 21.0-32.0 [facility] Work Phone: Urea nitrogen/Creatinine [Mass ratio] 12.0 mg/mg - [facility] Work Phone: Laboratory - Hematology and Cell countson 10-07-2021 Erythrocyte distribution width (RBC) [Entitic vol] 40.1 fL 35.1-43.9 [facility] Work Phone: Erythrocyte distribution width (RBC) [Ratio] 12.3 % 11.6-14.6 [facility] Work Phone: Immature granulocytes/100 WBC (Bld) 0.300 % 0.0-0.9 [facility] Work Phone: Comment on above: IG% - Immature Granu locytes (promyelocytes, myelocytes and metamyelocytes) > 1% indicates that a LEFT SHIFT is Present. MCH (RBC) [Entitic mass] 30.6 pg 27.0-32.0 [facility] Work Phone: Nucleated RBC/100 WBC (Bld) [Ratio] 0 % 0-5 [facility] Work Phone: MCHC Auto (RBC) [Mass/Vol]on 10-07-2021 MCHC (RBC) [Mass/Vol] 34.4 g/dL 32-36 [facility] Work Phone: No Panel Informationon 10-07 D-Dimer Quantitative (PE/DVT) 0.40 FEU/ug/m 0.27-0.49 [facility] Work Phone: Comment on above: NORMAL D-Dimer level (<0.50) indicates no DVT or PE. Estimated Creatinine Clearance Calc 63.79 ml/min [facility] Work Phone: Estimated GFR (MDRD) Amer 89 mL/min >60 [facility] Work Phone: Comment on above: GFR Calc Estimated GFR (MDRD) Non-Af Amer 73 mL/min >60 [facility] Work Phone: Comment on above: Non- GFR Calc Troponin I High Sensitivity < 3 pg/mL 3.0-54.0 [facility] Work Phone: Comment on above: Please Note: [place] t Units and Gender Specific Reference Ranges. For more information see Policy Stat Procedure [place] High Sensitivity Troponin (TNIH) and attachments. Platelets bldon 10-07-2021 Platelets (Bld) [#/Vol] 171 10*3/uL 150-450 [facility] Work Phone: Serum or plasma calcium stevie urement (mass/volume)on 10-07-2021 Calcium [Mass/Vol] 9.5 mg/dL 8.5-10.1 [facility] Work Phone: Serum or plasma creatinine m easurement (mass/volume)on 10-07-2021 Creatinine [Mass/Vol] 0.92 mg/dL 0.55-1.02 [facility] Work Phone: Comment on above: The validity of the calculated GFR & GFRAA in patients over 70 years has not been determined. Clinical correlation is essential. Serum or plasma urea nitroge n measurement (mass/volume)on 10-07-2021 Urea nitrogen [Mass/Vol] 11 mg/dL 7-18 [facility] Work Phone: Thin prep Papanicolaou smear with manual screeningon 10-07-2021 Thin prep Papanicolaou smear with manual screening 8 5-15 [facility] Work Phone: Basophil percentageon 2021 Basophil percentage 0 SEEN /hpf 0-5 [facility] Work Phone: Bilirubin Test strip Ql (U)o n 08-15-2021 Bilirubin Ql (U) Negative Negative [facility] Work Phone: Ketones Test strip Ql (U)on 08-15-2021 Ketones Ql (U) Negative Negative [facility] Work Phone: Mucus LM Ql (Urine sed)on Mucus Ql (Urine sed) 0 SEEN /hpf [facility] Work Phone: Nitrite Test strip Ql (U)on 08-15-2021 Nitrite Ql (U) Negative Negative [facility] Work Phone: Protein Test strip Ql (U)on 08-15-2021 Protein Ql (U) Negative Negative [facility] Work Phone: Squamous epithelial cells de tection in urine sediment by light microscopyon 08-15-2021 Epithelial cells.squamous LM Ql (Urine sed) 10-25 SEEN /hpf 5-10 [facility] Work Phone: Urine blood detectionon 07-22 RBC Ql (U) Negative Negative [facility] Work Phone: RBC Ql (U) 0 SEEN /hpf 0-5 [facility] Work Phone: Urine clarityon 08-15-2021 Clarity (U) Sl. Cloudy Clear [facility] Work Phone: Urine color determinationon 08-15-2021 Color (U) Yellow Yellow [facility] Work Phone: Urine glucose detectionon Glucose Ql (U) Normal mg/dl Normal [facility] Work Phone: Urine leukocyte esterase det ection by dipstickon 08-15-2021 Leukocyte esterase Test strip Ql (U) Negative Negative [facility] Work Phone: Urine pHon 08-15-2021 pH (U) 6.0 [pH] 5.0 - 8.0 [facility] Work Phone: Urine sediment bacteria coun t by microscopy (number/high power field)on 08-15-2021 Bacteria LM.HPF (Urine sed) [#/Area] 0 /[HPF] None Seen [facility] Work Phone: Urine specific gravity measu rementon 08-15-2021 Specific gravity (U) [Rel density] 1.010 1.002-1.030 [facility] Work Phone: Urobilinogen Auto test strip Ql (U)on 08-15-2021 Urobilinogen Ql (U) Normal mg/dl Normal [facility] Work Phone: Vital Signs Date Time Vital Sign Value Performing Clinician Faci lity 10-15-2024 16:49-0400 Body mass index (BMI) [Ratio] 33.07 kg/m2 Miko Chicas MD Work Phone: [facility] 10-15-2024 16:49-0400 Body temperature 99.39 [degF] Miko Chicas MD Work Phone: [facility] 10-15-2024 16:49-0400 Body weight 79.4 kg Miko Chicas MD Work Phone: [facility] 10-15-2024 16:49-0400 Diastolic blood pressure 76 mm[Hg] Miko Chicas MD Work Phone: [facility] 10-15-2024 16:49-0400 Heart rate 88 /min Miko Chicas MD Work Phone: [facility] 10-15-2024 16:49-0400 Respiratory rate 16 /min Miko Chicas MD Work Phone: [facility] 10-15-2024 16:49-0400 SaO2% (BldA) [Mass fraction] 99 % Miko Chicas MD Work Phone: [facility] 10-15-2024 16:49-0400 Systolic blood pressure 128 mm[Hg] Miko Chicas MD Work Phone: [facility] 08-23-2024 11:49-0500 Diastolic blood pressure 82 mm[Hg] Dr. Brent Conde MD Work Phone: [facility] 08-23-2024 11:49-0500 Heart rate 87 /min Dr. Brent Conde MD Work Phone: [facility] 08-23-2024 11:49-0500 Respiratory rate 18 /min Dr. Brent Conde MD Work Phone: [facility] 08-23-2024 11:49-0500 SaO2% (BldA) [Mass fraction] 98 % Dr. Brent Conde MD Work Phone: [facility] 08-23-2024 11:49-0500 Systolic blood pressure 133 mm[Hg] Dr. Brent Conde MD Work Phone: [facility] 08-23-2024 09:19-0500 Body height 154.[address] Brent Conde MD Work Phone: [facility] 08-23-2024 09:19-0500 Body mass index (BMI) [Ratio] 33.7 kg/m2 Dr. Brent Conde MD Work Phone: [facility] 08-23-2024 09:19-0500 Body temperature 98.6 [degF] Dr. Brent Conde MD Work Phone: [facility] 08-23-2024 09:19-0500 Body weight 81.[address] Brent Conde MD Work Phone: [facility] 02-29-2024 09:54-0400 Body mass index (BMI) [Ratio] 33.41 kg/m2 Heidy Guo AMBULATORY CARE COORDINATOR.RETURNED CASE INSPECTOR Work Phone: [facility] 02-29-2024 09:54-0400 Body temperature 98.8 [degF] Heidy Guo AMBULATORY CARE COORDINATOR.RETURNED CASE INSPECTOR Work Phone: [facility] 02-29-2024 09:54-0400 Body weight 80.2 kg Heidy Guo AMBULATORY CARE COORDINATOR.RETURNED CASE INSPECTOR Work Phone: [facility] 02-29-2024 09:54-0400 Diastolic blood pressure 80 mm[Hg] Heidy Guo APRN.RETURNED CASE INSPECTOR Work Phone: [facility] 02-29-2024 09:54-0400 Heart rate 116 /min Heidy Indorf AMBULATORY CARE COORDINATOR.RETURNED CASE INSPECTOR Work Phone: [facility] 02-29-2024 09:54-0400 Respiratory rate 18 /min Heidy Indorf AMBULATORY CARE COORDINATOR.RETURNED CASE INSPECTOR Work Phone: [facility] 02-29-2024 09:54-0400 SaO2% (BldA) [Mass fraction] 98 % Heidy Indorf AMBULATORY CARE COORDINATOR.RETURNED CASE INSPECTOR Work Phone: [facility] 02-29-2024 09:54-0400 Systolic blood pressure 118 mm[Hg] Heidy Indorf AMBULATORY CARE COORDINATOR.RETURNED CASE INSPECTOR Work Phone: [facility] 01-18-2024 10:51-0400 Body height 154.9 cm Guille Conde MD Work Phone: [facility] 01-18-2024 10:51-0400 Body mass index (BMI) [Ratio] 32.88 kg/m2 Guille Conde MD Work Phone: [facility] 01-18-2024 10:51-0400 Body weight 78.93 kg Guille Conde MD Work Phone: [facility] 01-18-2024 10:51-0400 Diastolic blood pressure 62 mm[Hg] Guille Conde MD Work Phone: [facility] 01-18-2024 10:51-0400 Heart rate 88 /min Guille Conde MD Work Phone: [facility] 01-18-2024 10:51-0400 Respiratory rate 12 /min Guille Conde MD Work Phone: [facility] 01-18-2024 10:51-0400 SaO2% (BldA) [Mass fraction] 98 % Guille Conde MD Work Phone: [facility] 01-18-2024 10:51-0400 Systolic blood pressure 126 mm[Hg] Guille Conde MD Work Phone: [facility] 11-24-2023 09:31-0400 Body mass index (BMI) [Ratio] 33.95 kg/m2 Jocy Lopez AMBULATORY CARE COORDINATOR.RETURNED CASE INSPECTOR Work Phone: [facility] 11-24-2023 09:31-0400 Body temperature 97.59 [degF] Jocy Lopez AMBULATORY CARE COORDINATOR.RETURNED CASE INSPECTOR Work Phone: [facility] 11-24-2023 09:31-0400 Body weight 81.5 kg Jocy Lopez AMBULATORY CARE COORDINATOR.RETURNED CASE INSPECTOR Work Phone: [facility] 11-24-2023 09:31-0400 Diastolic blood pressure 76 mm[Hg] Jocy Lopez AMBULATORY CARE COORDINATOR.RETURNED CASE INSPECTOR Work Phone: [facility] 11-24-2023 09:31-0400 Heart rate 98 /min Jocy Lopez AMBULATORY CARE COORDINATOR.RETURNED CASE INSPECTOR Work Phone: [facility] 11-24-2023 09:31-0400 Respiratory rate 19 /min Jocy Lopez AMBULATORY CARE COORDINATOR.RETURNED CASE INSPECTOR Work Phone: [facility] 11-24-2023 09:31-0400 SaO2% (BldA) [Mass fraction] 97 % Jocy Lopez AMBULATORY CARE COORDINATOR.RETURNED CASE INSPECTOR Work Phone: [facility] 11-24-2023 09:31-0400 Systolic blood pressure 100 mm[Hg] Jocy Lopez AMBULATORY CARE COORDINATOR.[facility] Work Phone: [facility] 03-15-2022 14:26-0400 Diastolic blood pressure 78 mm[Hg] [facility] Work Phone: 03-15-2022 14:26-0400 Heart rate 76 /min [facility] Work Phone: 03-15-2022 14:26-0400 Respiratory rate 16 /min [facility] Work Phone: 03-15-2022 14:26-0400 SaO2% (BldA) [Mass fraction] 96 % [facility] Work Phone: 03-15-2022 14:26-0400 Systolic blood pressure 136 mm[Hg] [facility] Work Phone: 03-15-2022 12:20-0400 Body height 154.94 cm [facility] Work Phone: 03-15-2022 12:20-0400 Body mass index (BMI) [Ratio] 33 kg/m2 [facility] Work Phone: 03-15-2022 12:20-0400 Body temperature 97.2 [degF] [facility] Work Phone: 03-15-2022 12:20-0400 Body weight 79.2 kg [facility] Work Phone: 02-16-2022 03:47-0400 Diastolic blood pressure 74 mm[Hg] [facility] Work Phone: 02-16-2022 03:47-0400 Heart rate 78 /min [facility] Work Phone: 02-16-2022 03:47-0400 Respiratory rate 16 /min [facility] Work Phone: 02-16-2022 03:47-0400 SaO2% (BldA) [Mass fraction] 97 % [facility] Work Phone: 02-16-2022 03:47-0400 Systolic blood pressure 136 mm[Hg] [facility] Work Phone: 02-16-2022 02:59-0400 Body temperature 98 [degF] [facility] Work Phone: 02-16-2022 01:11-0400 Body height 154.94 cm [facility] Work Phone: 02-16-2022 01:11-0400 Body mass index (BMI) [Ratio] 33.6 kg/m2 [facility] Work Phone: 02-16-2022 01:11-0400 Body weight 80.8 kg [facility] Work Phone: 02-05-2022 04:06-0400 Diastolic blood pressure 78 mm[Hg] [facility] Work Phone: 02-05-2022 04:06-0400 Heart rate 79 /min [facility] Work Phone: 02-05-2022 04:06-0400 Respiratory rate 17 /min [facility] Work Phone: 02-05-2022 04:06-0400 SaO2% (BldA) [Mass fraction] 97 % [facility] Work Phone: 02-05-2022 04:06-0400 Systolic blood pressure 112 mm[Hg] [facility] Work Phone: 02-05-2022 03:20-0400 Body height 154.94 cm [facility] Work Phone: 02-05-2022 03:20-0400 Body mass index (BMI) [Ratio] 33.7 kg/m2 [facility] Work Phone: 02-05-2022 03:20-0400 Body temperature 98 [degF] [facility] Work Phone: 02-05-2022 03:20-0400 Body weight 81 kg [facility] Work Phone: 02-01-2022 09:24-0400 Diastolic blood pressure 62 mm[Hg] Dr. Yohannes Downey Work Phone: [facility] Work Phone: 02-01-2022 09:24-0400 Heart rate 62 /min Dr. Yohannes Downey Work Phone: [facility] Work Phone: 02-01-2022 09:24-0400 Respiratory rate 16 /min Dr. Yohannes Downey Work Phone: [facility] Work Phone: 02-01-2022 09:24-0400 SaO2% (BldA) [Mass fraction] 98 % Dr. Yohannes Downey Work Phone: [facility] Work Phone: 02-01-2022 09:24-0400 Systolic blood pressure 101 mm[Hg] Dr. Yohannes Downey Work Phone: [facility] Work Phone: 02-01-2022 04:00-0400 Body height 154.[address] Yohannes Downey Work Phone: [facility] Work Phone: 02-01-2022 04:00-0400 Body mass index (BMI) [Ratio] 32.7 kg/m2 Dr. Yohannes Downey Work Phone: [facility] Work Phone: 02-01-2022 04:00-0400 Body temperature 97.7 [degF] Dr. Yohannes Downey Work Phone: [facility] Work Phone: 02-01-2022 04:00-0400 Body weight 78.[address] Yohannes Downey Work Phone: [facility] Work Phone: 12-12-2021 03:08-0400 Heart rate 74 /min Dr. Yohannes Downey Work Phone: [facility] Work Phone: 12-12-2021 03:07-0400 Diastolic blood pressure 80 mm[Hg] Dr. Yohannes Downey Work Phone: [facility] Work Phone: 12-12-2021 03:07-0400 Respiratory rate 17 /min Dr. Yohannes Downey Work Phone: [facility] Work Phone: 12-12-2021 03:07-0400 SaO2% (BldA) [Mass fraction] 97 % Dr. Yohannes Downey Work Phone: [facility] Work Phone: 12-12-2021 03:07-0400 Systolic blood pressure 113 mm[Hg] Dr. Yohannes Downey Work Phone: [facility] Work Phone: 12-11-2021 23:11-0400 Body height 154.[address] Yohannes Downey Work Phone: [facility] Work Phone: 12-11-2021 23:11-0400 Body mass index (BMI) [Ratio] 32.3 kg/m2 Dr. Yohannes Downey Work Phone: [facility] Work Phone: 12-11-2021 23:11-0400 Body temperature 98.1 [degF] Dr. Yohannes Downey Work Phone: [facility] Work Phone: 12-11-2021 23:11-0400 Body weight 77.[address] Yohannes Downey Work Phone: [facility] Work Phone: 11-30-2021 23:49-0400 Diastolic blood pressure 44 mm[Hg] Dr. Yohannes Downey Work Phone: [facility] Work Phone: 11-30-2021 23:49-0400 Heart rate 68 /min Dr. Yohannes Downey Work Phone: [facility] Work Phone: 11-30-2021 23:49-0400 Respiratory rate 15 /min Dr. Yohannes Downey Work Phone: [facility] Work Phone: 11-30-2021 23:49-0400 SaO2% (BldA) [Mass fraction] 97 % Dr. Yohannes Downey Work Phone: [facility] Work Phone: 11-30-2021 23:49-0400 Systolic blood pressure 93 mm[Hg] Dr. Yohannes Downey Work Phone: [facility] Work Phone: 11-30-2021 20:47-0400 Body height 154.[address] Yohannes Downey Work Phone: [facility] Work Phone: 11-30-2021 20:47-0400 Body mass index (BMI) [Ratio] 32.1 kg/m2 Dr. Yohannes Downey Work Phone: [facility] Work Phone: 11-30-2021 20:47-0400 Body temperature 97.8 [degF] Dr. Yohannes Downey Work Phone: [facility] Work Phone: 11-30-2021 20:47-0400 Body weight 77.[address] Yohannes Downey Work Phone: [facility] Work Phone: 11-09-2021 03:57-0400 Diastolic blood pressure 63 mm[Hg] Dr. Yohannes Downey Work Phone: [facility] Work Phone: 11-09-2021 03:57-0400 Heart rate 82 /min Dr. Yohannes Downey Work Phone: [facility] Work Phone: 11-09-2021 03:57-0400 Respiratory rate 18 /min Dr. Yohannes Downey Work Phone: [facility] Work Phone: 11-09-2021 03:57-0400 SaO2% (BldA) [Mass fraction] 96 % Dr. Yohannes Downey Work Phone: [facility] Work Phone: 11-09-2021 03:57-0400 Systolic blood pressure 123 mm[Hg] Dr. Yohannes Downey Work Phone: [facility] Work Phone: 11-09-2021 02:07-0400 Body height 154.[address] Yohannes Downey Work Phone: [facility] Work Phone: 11-09-2021 02:07-0400 Body mass index (BMI) [Ratio] 32.1 kg/m2 Dr. Yohannes Downey Work Phone: [facility] Work Phone: 11-09-2021 02:07-0400 Body temperature 97.6 [degF] Dr. Yohannes Downey Work Phone: [facility] Work Phone: 11-09-2021 02:07-0400 Body weight 77.[address] Yohannes Downey Work Phone: [facility] Work Phone: 10-07-2021 15:07-0400 Heart rate 82 /min [facility] Work Phone: 10-07-2021 15:07-0400 Respiratory rate 16 /min [facility] Work Phone: 10-07-2021 15:07-0400 SaO2% (BldA) [Mass fraction] 95 % [facility] Work Phone: 10-07-2021 14:42-0400 Diastolic blood pressure 62 mm[Hg] [facility] Work Phone: 10-07-2021 14:42-0400 Systolic blood pressure 101 mm[Hg] [facility] Work Phone: 10-07-2021 13:22-0400 Body height 154.94 cm [facility] Work Phone: 10-07-2021 13:22-0400 Body mass index (BMI) [Ratio] 32.5 kg/m2 [facility] Work Phone: 10-07-2021 13:22-0400 Body temperature 97.3 [degF] [facility] Work Phone: 10-07-2021 13:22-0400 Body weight 78.2 kg [facility] Work Phone: 08-15-2021 11:53-0500 Heart rate 67 /min Dr. Yohannes Downey Work Phone: [facility] Work Phone: 08-15-2021 11:53-0500 Respiratory rate 16 /min Dr. Yohannes Downey Work Phone: [facility] Work Phone: 08-15-2021 11:53-0500 SaO2% (BldA) [Mass fraction] 97 % Dr. Yohannes Downey Work Phone: [facility] Work Phone: 08-15-2021 10:53-0500 Heart rate 67 /min [facility] Work Phone: 08-15-2021 10:53-0500 Respiratory rate 16 /min [facility] Work Phone: 08-15-2021 10:53-0500 SaO2% (BldA) [Mass fraction] 97 % [facility] Work Phone: 08-15-2021 09:02-0500 Body mass index (BMI) [Ratio] 31.9 kg/m2 Dr. Yohannes Downey Work Phone: [facility] Work Phone: 08-15-2021 09:02-0500 Body temperature 97.2 [degF] Dr. Yohannes Downey Work Phone: [facility] Work Phone: 08-15-2021 09:02-0500 Body weight 76.[address] Yohannes Downey Work Phone: [facility] Work Phone: 08-15-2021 09:02-0500 Diastolic blood pressure 74 mm[Hg] Dr. Yohannes Downey Work Phone: [facility] Work Phone: 08-15-2021 09:02-0500 Systolic blood pressure 119 mm[Hg] Dr. Yohannes Downey Work Phone: [facility] Work Phone: 08-15-2021 08:02-0500 Body mass index (BMI) [Ratio] 31.9 kg/m2 [facility] Work Phone: 08-15-2021 08:02-0500 Body temperature 97.2 [degF] [facility] Work Phone: 08-15-2021 08:02-0500 Body weight 76.65 kg [facility] Work Phone: 08-15-2021 08:02-0500 Diastolic blood pressure 74 mm[Hg] [facility] Work Phone: 08-15-2021 08:02-0500 Systolic blood pressure 119 mm[Hg] [facility] Work Phone: Encounters Encounter Date Encounter Type Care Provider Facility Start: 04-10-2025 End: 04-10-2025 ambulatory [facility] Facility:[facility] Start: 03-15-2025 End: 03-15-2025 ambulatory [facility] Facility:[facility] Start: 03-01-2025 End: 03-01-2025 Telephone encounter Kinsey Levine APRN.CNP Work Phone: Psychiatry Start: 02-28-2025 End: 02-28-2025 Telephone encounter Kinsey Levine APRN.RETURNED CASE INSPECTOR Work Phone: Psychiatry Start: 02-12-2025 End: 02-25-2025 Telephone encounter Kinsey Levine APRN.RETURNED CASE INSPECTOR Work Phone: Psychiatry Comment on above: Insurance Authorizat ion Start: 02-11-2025 End: 02-11-2025 [facility] Kinsey Levine APRN.RETURNED CASE INSPECTOR Work Phone: Psychiatry Comment on above: Bipolar 2 disorder ( HCC) (Primary Dx); ZAIRE (generalized anxiety disorder); Panic attacks; Psychosocial stressors; Encounter for long-term (current) use of medications Start: 02-11-2025 End: 02-11-2025 ambulatory GUILLE CONDE Facility:[facility] Start: 01-21-2025 End: 01-30-2025 Telephone encounter Guille Conde MD Work Phone: [facility] Comment on above: Ambika GUERRERO Start: 01-10-2025 End: 01-17-2025 Telephone encounter Kinsey Levine APRN.RETURNED CASE INSPECTOR Work Phone: Psychiatry Comment on above: Insurance Authorizat ion; Medication Problem (Pharmacy) Start: 01-07-2025 End: 01-07-2025 [facility] Kinsey Levine APRN.RETURNED CASE INSPECTOR Work Phone: Psychiatry Comment on above: Bipolar 2 disorder ( HCC) (Primary Dx); ZAIRE (generalized anxiety disorder); Encounter for long-term (current) use of medications; Decreased appetite; Headaches; Hair loss; Weight loss Start: 01-07-2025 End: 01-07-2025 ambulatory KINSEY LEVINE Facility:[facility] Start: 12-31-2024 End: 12-31-2024 ambulatory Guille Conde MD Work Phone: [facility] [place] Start: 12-31-2024 End: 12-31-2024 Patient encounter procedure [facility] Conde [facility] Comment on above: [facility] Health [facility] Start: 11-30-2024 End: 11-30-2024 ambulatory Guille Conde MD [facility] Phone: [facility] [place] Start: 11-30-2024 End: 11-30-2024 Patient encounter procedure Guille Conde MD [facility] Comment on above: Population Health Na vigation Outreach ([facility] ) Start: 11-19-2024 End: 11-19-2024 Distance Health Kinsey Levine APRN.RETURNED CASE INSPECTOR Work Phone: Psychiatry Comment on above: Bipolar 2 disorder ( HCC) (Primary Dx); ZAIRE (generalized anxiety disorder); Decreased appetite; Headaches; Nausea; Irritability; Encounter for long-term (current) use of medications Start: 11-19-2024 End: 11-19-2024 ambulatory KINSEY LEVINE Facility:[facility] Start: 10-30-2024 End: 10-30-2024 ambulatory Guille Conde MD [facility]: [facility] [place] Start: 10-30-2024 End: 10-30-2024 Patient encounter procedure Guille Conde MD Work Phone: [facility] [place] Comment on above: Population Health Na vigation Outreach ([facility] [place] ) Start: 10-16-2024 End: 12-16-2024 Follow-up encounter Yohannes Echols APRN.RETURNED CASE INSPECTOR Work Phone: [facility] Start: 10-15-2024 End: 10-15-2024 Office outpatient visit 15 minutes Miko Chicas MD Work Phone: [facility] Comment on above: URI, acute (Primary Dx) Start: 10-15-2024 End: 10-15-2024 ambulatory MIKO CHICAS Facility:[facility] Start: 09-24-2024 End: 09-24-2024 ambulatory KINSEY LEVINE Facility:[facility] Start: 09-24-2024 End: 09-24-2024 [facility] Kinsey Levine AMBULATORY CARE COORDINATOR.RETURNED CASE INSPECTOR Work Phone: Psychiatry Comment on above: Bipolar 2 disorder ( HCC) (Primary Dx); ZAIRE (generalized anxiety disorder); Metabolic syndrome; Elevated lipids; Encounter for long-term (current) use of medications Start: 08-31-2024 End: 08-31-2024 ambulatory Chidi Fitzgeraldcharanjit MEDELLIN [facility] [place] Start: 08-31-2024 End: 08-31-2024 Patient encounter procedure Chidi Briceño MA [facility] [place] Comment on above: Population Health Na vigation Outreach ([facility]) Start: 08-23-2024 End: 08-23-2024 Emergency department patient visit Kel Garcia Facility:[facility] Start: 08-23-2024 End: 08-23-2024 ambulatory KEMIANGEL Romulo LAURI Facility:[facility] Start: 08-23-2024 End: 08-23-2024 Patient encounter procedure Drew Shaver APRN.RETURNED CASE INSPECTOR Work Phone: [facility] Comment on above: SOB (shortness of br eath) (Primary Dx) Start: 08-16-2024 End: 08-17-2024 Telephone encounter Kinsey Levine APRN.RETURNED CASE INSPECTOR Work Phone: Psychiatry Comment on above: Patient Question Start: 08-15-2024 End: 08-17-2024 Telephone encounter Kinsey Levine APRN.RETURNED CASE INSPECTOR Work Phone: Psychiatry Comment on above: Patient Question Start: 08-15-2024 End: 08-15-2024 ambulatory KINSEY LEVINE Facility:[facility] Start: 07-24-2024 End: 07-24-2024 ambulatory Chidi Briceño [facility] [place] Start: 07-24-2024 End: 07-24-2024 Patient encounter procedure Chidi Briceño MA [facility] [place] Comment on above: Population Health Na vigation Outreach ([facility] Start: 07-23-2024 End: 07-23-2024 ambulatory KINSEY LEVINE Facility:[facility] Start: 07-23-2024 End: 07-23-2024 Distance Health Kinsey Levine APRN.RETURNED CASE INSPECTOR Work Phone: Psychiatry Comment on above: ZAIRE (generalized anx iety disorder) (Primary Dx); Bipolar 2 disorder (HCC); Encounter for long-term (current) use of medications; Metabolic syndrome; Elevated lipids; Current nicotine use; Irritability Start: 06-05-2024 End: 06-05-2024 ambulatory Chidisheree Briceño VIGNESH [facility] [place] Start: 06-05-2024 End: 06-05-2024 Patient encounter procedure Chidi Briceño MA [facility] [place] Comment on above: Population Health Na vigation Outreach ([facility] Start: 05-14-2024 End: 05-14-2024 ambulatory GUILLE CONDE Facility:[facility] Start: 05-14-2024 End: 05-14-2024 [facility] Kinsey Levine APRN.CNP Work Phone: Psychiatry Comment on above: Bipolar 2 disorder ( HCC) (Primary Dx); ZAIRE (generalized anxiety disorder); Metabolic syndrome; Elevated lipids; Anxiety about health; Elevated liver enzymes; Encounter for long-term (current) use of medications; Current nicotine use Start: 03-26-2024 End: 03-26-2024 ambulatory Brent Conde Facility:[facility] Start: 03-12-2024 End: 03-12-[address] [facility] Kinsey Levine APRN.RETURNED CASE INSPECTOR Work Phone: Psychiatry Comment on above: Metabolic syndrome ( Primary Dx); Elevated lipids; Bipolar 2 disorder (HCC); ZAIRE (generalized anxiety disorder); Anxiety about health Start: 02-29-2024 End: 02-29-2024 Office outpatient visit 15 minutes Heidy Guo APRN.RETURNED CASE INSPECTOR Work Phone: [facility] Comment on above: Viral upper respirat ory illness (Primary Dx) Start: 01-23-2024 Telephone encounter Brent Conde MD Work Phone: Family [facility] Comment on above: Results Start: 01-19-2024 End: 01-19-2024 Subsequent hospital visit by physician [facility] Work Phone: Radiology Comment on above: Nodule of external e ar, left [H61.892] Start: 01-18-2024 End: 01-18-2024 Patient encounter procedure Guille Conde MD Work Phone: Family [facility] Comment on above: Hyperlipidemia, mixe d (Primary Dx); Daytime somnolence; Nodule of external ear, left Start: 01-11-2024 Telephone encounter Kinsey arreguin APRN.CNP Work Phone: Psychiatry Comment on above: Results Start: 01-10-2024 ambulatory Kinsey moser APRN.RETURNED CASE INSPECTOR Work Phone: Psychiatry Comment on above: Question regarding L ab work Start: 01-10-2024 E-mail encounter fro m caregiver Kinsey Levine APRN.RETURNED CASE INSPECTOR Work Phone: Psychiatry Start: 2024 End: [address] [facility] Kinsey Levine AMBULATORY CARE COORDINATOR.RETURNED CASE INSPECTOR Work Phone: Psychiatry Comment on above: Bipolar 2 disorder ( HCC) (Primary Dx); ZAIRE (generalized anxiety disorder); Metabolic syndrome; Elevated liver enzymes; Irritability; Abnormal hemoglobin (HCC) Start: 11-28-2023 End: 11-28-[address] [facility] Kinsey Levine AMBULATORY CARE COORDINATOR.[facility] Work Phone: Psychiatry Comment on above: Encounter for long-t erm (current) use of medications (Primary Dx); Bipolar 2 disorder (HCC); ZAIRE (generalized anxiety disorder); Metabolic syndrome; Elevated liver enzymes Start: 11-24-2023 Telephone encounter Jocy truong AMBULATORY CARE COORDINATOR.[facility] Work Phone: [facility] [place] Comment on above: Medication Problem ( Not covered by insurance/) Results Start: 11-24-2023 End: 11-24-2023 Subsequent hospital visit by physician [facility] Work Phone: Radiology Comment on above: Acute cough [R05.1] Start: 11-24-2023 End: 11-24-2023 Patient encounter procedure Jocy Lopez AMBULATORY CARE COORDINATOR.[facility] Work Phone: [facility] Comment on above: URI, acute (Primary Dx); Acute cough; Acute otitis media, right Start: 11-21-2023 Telephone encounter Kinsey arreguin APRN.RETURNED CASE INSPECTOR Work Phone: Psychiatry Comment on above: lab question/reply Start: 10-21-2023 End: 10-21-[address] [facility] Kinsey Levine APRN.RETURNED CASE INSPECTOR Work Phone: Psychiatry Comment on above: Abnormal hemoglobin (HCC) (Primary Dx); ZAIRE (generalized anxiety disorder); Elevated liver enzymes; Metabolic syndrome; Bipolar 2 disorder (HCC) Start: 10-14-2023 ambulatory Kinsey moser APRN.RETURNED CASE INSPECTOR Work Phone: Psychiatry Comment on above: Blood work Start: 10-14-2023 Telephone encounter Kinsey arreguin APRN.RETURNED CASE INSPECTOR Work Phone: Psychiatry Comment on above: Results Start: 09-16-2023 End: 09-16-[address] [facility] Kinsey Levine APRN.RETURNED CASE INSPECTOR Work Phone: Psychiatry Comment on above: Bipolar 2 disorder ( HCC) (Primary Dx); ZAIRE (generalized anxiety disorder) Start: 09-05-2023 End: 09-05-2023 ambulatory Alla Chauhan MD Work Phone: OB/Gynecology Comment on above: Hot flashes (Primary Dx); Irritability; Other acne; Hair thinning Start: 09-05-2023 End: 09-05-2023 Telemedicine consultation with patient Alla Chauhan MD Work Phone: [facility] Start: 08-19-2023 End: 08-19-[address] [facility] Kinsey Levine APRN.RETURNED CASE INSPECTOR Work Phone: Psychiatry Comment on above: Bipolar 2 disorder ( HCC) (Primary Dx); ZAIRE (generalized anxiety disorder) Start: 07-22-2023 End: 07-22-[address] [facility] Kinsey Levine APRN.RETURNED CASE INSPECTOR Work Phone: Psychiatry Comment on above: Bipolar 2 disorder ( HCC) (Primary Dx); ZAIRE (generalized anxiety disorder); Encounter for long-term (current) use of medications; Nightmares; Current nicotine use Start: 04-04-2023 End: 04-04-2023 Distance [facility] Kinsey Levine APRN.RETURNED CASE INSPECTOR Work Phone: Psychiatry Comment on above: Hot flashes (Primary Dx); Irritability; Other acne; Malaise and fatigue; Encounter for long-term (current) use of medications; ZAIRE (generalized anxiety disorder); Bipolar 2 disorder (HCC); Nightmares Start: 03-28-2023 End: 03-28-2023 Patient encounter procedure Kinsey Levine APRN.RETURNED CASE INSPECTOR Work Phone: Psychiatry Comment on above: APPOINTMENT CANCELLE D (Primary Dx) Start: 03-28-2023 End: 03-28-2023 Telemedicine consultation with patient Kinsey Guzmándelmy GARCIA.RETURNED CASE INSPECTOR Work Phone: [facility] Start: 02-28-2023 End: 02-28-[address] [facility] Kinseyivelisse Levine AMBULATORY CARE COORDINATOR.RETURNED CASE INSPECTOR Work Phone: Psychiatry Comment on above: ZAIRE (generalized anx iety disorder) (Primary Dx); Bipolar 2 disorder (HCC); Nightmares Start: 10-15-2022 Refill Kinsey moser AMBULATORY CARE COORDINATOR.RETURNED CASE INSPECTOR Work Phone: Psychiatry Comment on above: Refill Request Start: 10-13-2022 End: 10-13-2022 Patient encounter procedure Kinsey Cassidy Levine APRN.RETURNED CASE INSPECTOR Work Phone: Psychiatry Comment on above: NO SHOW (Primary Dx) Start: 08-13-2022 End: 08-13-2022 Distance [facility] Kinseyivelisse Levine AMBULATORY CARE COORDINATOR.RETURNED CASE INSPECTOR Work Phone: Psychiatry Comment on above: Encounter for long-t erm (current) use of medications (Primary Dx); ZAIRE (generalized anxiety disorder); Bipolar 2 disorder (HCC) Start: 07-21-2022 End: 07-21-2022 Patient encounter procedure Kinseyivelisse Levine APRN.RETURNED CASE INSPECTOR Work Phone: Psychiatry Comment on above: APPOINTMENT CANCELLE D (Primary Dx) Start: 07-21-2022 End: 07-21-2022 Telemedicine consultation with patient Kinsey Guzmándelmy GARCIA.RETURNED CASE INSPECTOR Work Phone: [facility] Start: 06-30-2022 End: 06-30-2022 Distance [facility] Kinseyivelisse Levine AMBULATORY CARE COORDINATOR.RETURNED CASE INSPECTOR Work Phone: Psychiatry Comment on above: Bipolar 2 disorder ( HCC) (Primary Dx); ZAIRE (generalized anxiety disorder) Start: 04-28-2022 End: 04-28-[address] [facility] Kinsey Levine AMBULATORY CARE COORDINATOR.RETURNED CASE INSPECTOR Work Phone: Psychiatry Comment on above: Bipolar 2 disorder ( HCC) (Primary Dx); ZAIRE (generalized anxiety disorder) Start: 03-26-2022 End: 03-26-[address] [facility] Kinsey Benjamin Chirag GARCIA.RETURNED CASE INSPECTOR Work Phone: Psychiatry Comment on above: ZAIRE (generalized anx iety disorder) (Primary Dx); Bipolar 2 disorder (HCC) Start: 03-15-2022 End: 03-15-2022 [facility] Start: 02-16-2022 End: 02-16-2022 Emergency department [facility] Start: 02-05-2022 End: 02-05-2022 [facility] Start: 02-01-2022 End: 02-01-2022 Emergency department patient visit Dr[facility] Yohannes Downey [facility] Start: 12-11-2021 End: 12-12-2021 Emergency department patient visit Dr[facility]ohannes Downey [facility] Start: 12-07-2021 End: 12-07-2021 Patient encounter procedure Kinsey Benjamin Chirag AMBULATORY CARE COORDINATOR.RETURNED CASE INSPECTOR Work Phone: Psychiatry Comment on above: APPOINTMENT CANCELLE D (Primary Dx) Start: 12-07-2021 End: 12-07-2021 Telemedicine consultation with patient Kinsey Guzmándelmy GARCIA.RETURNED CASE INSPECTOR Work Phone: [facility] Start: 11-30-2021 End: 12-01-2021 Emergency department patient visit Dr. [facility]ohannes Downey [facility] Start: 11-27-2021 End: 11-27-2021 [facility]ag AMBULATORY CARE COORDINATOR.RETURNED CASE INSPECTOR Work Phone: Psychiatry Comment on above: Bipolar 2 disorder ( HCC) (Primary Dx); ZAIRE (generalized anxiety disorder) Start: 11-09-2021 End: 11-09-2021 Emergency department patient visit Dr. Yohannes Downey [facility] Start: 10-19-2021 End: 10-19-2021 ambulatory Coby Narvaez JOSE.RETURNED CASE INSPECTOR Work Phone: Telemedicine Comment on above: Treatment not availa ble (Primary Dx); Patient left without being seen Mouth pain (Primary Dx) Start: 10-19-2021 End: 10-19-2021 Telemedicine consultation with patient Coby Narvaez JOSE.RETURNED CASE INSPECTOR Work Phone: [facility] Start: 10-07-2021 End: 10-07-2021 Emergency department patient visit [facility] Start: 10-07-2021 Non-patient / Non-visit Dr. Tyler Downey Work Phone: [facility] Start: 08-15-2021 End: 08-15-2021 Emergency department patient visit [facility] Start: 02-19-2010 End: 06-06-2012 Patient encounter status Kinsey Levine AMBULATORY CARE COORDINATOR.RETURNED CASE INSPECTOR Work Phone: [facility] Procedures Date Procedure Procedure Detail Performing Clinician Start: 08-23-2024 SARS-CoV-2, Influenz a & RSV (PCR) Dr. Brent Conde MD Work Phone: Start: 08-23-2024 X-ray of chest, PA a nd lateral views Dr. Brent Conde MD Work Phone: Start: 07-23-2024 Follow-up visit Follow Up KINSEY LEVINE Start: 11-24-2023 Radiologic exam ches t 2 views Jocy Lopez APRN.RETURNED CASE INSPECTOR Work Phone: Start: 03-15-2022 Plain chest X-ray Start: 02-16-2022 Diagnostic radiograp hy of abdomen Start: 02-01-2022 US scan of gallbladder Dr. Yohannes Downey Work Phone: Start: 02-01-2022 CT of abdomen and pe lvis without contrast Dr. Yohannes Downey Work Phone: Start: 12-12-2021 X-ray of cervical spine Dr. Yohannes Downey Work Phone: Start: 12-11-2021 Plain chest X-ray Dr. Cassidy Downey Work Phone: Start: 11-30-2021 Plain chest X-ray Dr. Cassidy Downey Work Phone: Start: 11-09-2021 X-ray of cervical spine Dr. Yohannes Downey Work Phone: Start: 11-09-2021 Plain chest X-ray Dr. Cassidy Downey Work Phone: Start: 10-07-2021 Plain chest X-ray Start: 08-15-2021 CT of lumbar spine Viral antigen assay Plan of Treatment Date Care Activity Detail Author Start: 02-18-2025 Influenza vaccination [facility] Start: 02-11-2025 End: 02-11-2025 ambulatory 02/11/2025 2:30 PM EDT [facility] Psychiatry [address] [place] [address] Kinsey Levine, AMBULATORY CARE COORDINATOR.RETURNED CASE INSPECTOR [address] [place] [address] Psychiatry Start: 2025 Screening for malignant neoplasm of breast Mammogram Screening [facility] Start: 01-07-2025 End: 01-07-2025 ambulatory 01/07/2025 2:30 PM EDT [facility] Psychiatry [address] [place] [address] Kinsey Levine, AMBULATORY CARE COORDINATOR.RETURNED CASE INSPECTOR [address] [place] [address] Psychiatry Start: 01-07-2025 End: 04-08-2025 Comprehensive metabolic 2000 panel - Serum or Plasma COMPREHENSIVE METABOLIC PANEL Lab Routine Encounter for long-term (current) use of medications Expected: 01/07/2025, Expires: 04/08/2025 [facility] Comment on above: Expected: 01/07/2025 , Expires: 04/08/2025 Start: 01-07-2025 End: 04-08-2025 Hemoglobin A1c in Blood HEMOGLOBIN A1C Lab Routine Encounter for long-term (current) use of medications Expected: 01/07/2025, Expires: 04/08/2025 [facility] Comment on above: Expected: 01/07/2025 , Expires: 04/08/2025 Start: 01-07-2025 End: 04-08-2025 Lipid 1996 panel - Serum or Plasma LIPID PANEL, FASTING Lab Routine Encounter for long-term (current) use of medications Expected: 01/07/2025, Expires: 04/08/2025 [facility] Work Phone: Comment on above: Expected: 01/07/2025 , Expires: 04/08/2025 Start: 01-07-2025 End: 04-08-2025 Thyrotropin [Units/volume] in Serum or Plasma THYROID STIMULATING HORMONE Lab Routine Encounter for long-term (current) use of medications Decreased appetite Headaches Expected: 01/07/2025, Expires: 04/08/2025 [facility] Comment on above: Expected: 01/07/2025 , Expires: 04/08/2025 Start: 11-19-2024 End: 11-19-2024 ambulatory 11/19/2024 9:30 AM EDT [facility] Psychiatry [address] [place] [phone] Kinsey Levine, AMBULATORY CARE COORDINATOR.RETURNED CASE INSPECTOR [address] [place] [phone] Psychiatry Start: 09-24-2024 End: 09-24-2024 Follow-up encounter Psychiatry Comment on above: 2 month follow up Start: 08-28-2024 End: 08-28-2024 Patient encounter procedure 08/28/2024 9:40 AM EDT Office Visit [facility] [place] [address] [place], [place] [phone] Gulile Conde MD [address] [place], [place] [id number] Back pain [facility] [place] Comment on above: Back pain Start: 08-23-2024 [facility] Start: 08-23-2024 Respiratory secretio n precautions [facility] Start: 07-23-2024 End: 07-23-2024 Follow-up encounter 07/23/2024 4:00 PM EST [facility] Psychiatry [address] [place] [phone] Kinsey Levine, AMBULATORY CARE COORDINATOR.RETURNED CASE INSPECTOR [address] [place] [phone] 2 month follow up Psychiatry Comment on above: 2 month follow up Start: 07-23-2024 End: 10-22-2024 Comprehensive metabolic 2000 panel - Serum or Plasma COMPREHENSIVE METABOLIC PANEL Lab Routine Encounter for long-term (current) use of medications Expected: 07/23/2024, Expires: 10/22/2024 [facility] Comment on above: Expected: 07/23/2024 , Expires: 10/22/2024 Start: 07-23-2024 End: 10-22-2024 Hemoglobin A1c in Blood HEMOGLOBIN A1C Lab Routine Encounter for long-term (current) use of medications Expected: 07/23/2024, Expires: 10/22/2024 [facility] Comment on above: Expected: 07/23/2024 , Expires: 10/22/2024 Start: 07-23-2024 End: 10-22-2024 Lipid 1996 panel - Serum or Plasma LIPID PANEL BASIC Lab Routine Encounter for long-term (current) use of medications Expected: 07/23/2024, Expires: 10/22/2024 [facility] Work Phone: Comment on above: Expected: 07/23/2024 , Expires: 10/22/2024 Start: 07-23-2024 End: 10-22-2024 TOXICOLOGY SCREEN, ROUTINE URINE TOXICOLOGY SCREEN, ROUTINE URINE Lab Routine Encounter for long-term (current) use of medications Expected: 07/23/2024, Expires: 10/22/2024 [facility] Comment on above: Expected: 07/23/2024 , Expires: 10/22/2024 Start: 06-20-2024 [employer]age Annual Wellness Visit Medicare Advantage Annual Wellness Visit [facility] Start: 05-14-2024 End: 05-14-2024 Follow-up encounter 05/14/2024 9:30 AM EST [facility] Psych[facility] [address] [place] [phone] Kinsey Levine, AMBULATORY CARE COORDINATOR.RETURNED CASE INSPECTOR [address] [place] [phone] follow up 2 months Psychiatry Comment on above: follow up 2 months Start: 04-13-2024 End: 04-13-2024 Patient encounter procedure 04/13/2024 9:40 AM EDT Office Visit [facility] [place] [address] [place] [address] Guille Conde MD [address] [place], [place] [phone] Physical [facility] [place] Comment on above: Physical Start: 03-19-2024 End: 03-19-2024 Patient encounter procedure 03/19/2024 2:45 PM EDT Office Visit Otolaryngology [address] [address] Darwin Earl MD [address] [address] Nodule of external ear, left [H61.892] Otolaryngology Comment on above: Nodule of external e ar, left [H61.892] Start: 03-12-2024 End: 06-11-2024 Comprehensive metabolic 2000 panel - Serum or Plasma COMPREHENSIVE METABOLIC PANEL Lab Routine Metabolic syndrome Elevated lipids Expected: 03/12/2024, Expires: 06/11/2024 [facility] Comment on above: Expected: 03/12/2024 , Expires: 06/11/2024 Start: 03-12-2024 End: 06-11-2024 Hemoglobin A1c in Blood HEMOGLOBIN A1C Lab Routine Metabolic syndrome Elevated lipids Expected: 03/12/2024, Expires: 06/11/2024 [facility] Comment on above: Expected: 03/12/2024 , Expires: 06/11/2024 Start: 03-12-2024 End: 06-11-2024 Lipid 1996 panel - Serum or Plasma LIPID PANEL BASIC Lab Routine Metabolic syndrome Elevated lipids Expected: 03/12/2024, Expires: 06/11/2024 [facility] Work Phone: Comment on above: Expected: 03/12/2024 , Expires: 06/11/2024 Start: 03-12-2024 End: 03-12-2024 Follow-up encounter 03/12/2024 9:30 AM EDT [facility] Psychiatry [address] [facility] [place] [place] [address] Kinsey Levine, AMBULATORY CARE COORDINATOR.RETURNED CASE INSPECTOR [address] [facility] [place] [phone] follow up 2 months Psychiatry Comment on above: follow up 2 months Start: 03-09-2024 End: 03-09-2024 Patient encounter procedure 03/09/2024 10:40 AM EDT [facility] [place] [address] [facility] [place] [phone] Guille Conde MD [address] [facility] [place] [address] 2 week follow up-back [facility] [place] Comment on above: 2 week follow up-qian k Start: 03-08-2024 End: 03-08-2024 Patient encounter procedure 03/08/2024 12:20 PM EDT Office Visit [facility] [place] [address] [facility] [place], [place] [phone] Guille Conde MD [address] [facility] [address] Physical [facility] [place] Comment on above: Physical Start: 02-19-2024 Covid-19 Vaccine ( season) Covid-19 Vaccine ( season) [facility] Start: 02-19-2024 Covid-19 Vaccine ( season) Covid-19 Vaccine ( season) [facility] Start: 02-19-2024 Influenza vaccination C [facility] Start: 02-03-2024 End: 02-03-2024 Patient encounter procedure 02/03/2024 9:40 AM EDT Office Visit [facility] [place] [address] [place] [address] Guille Conde MD [address] [place] [address] 2 week follow [facility]-back [facility] [facility] Comment on above: 2 week follow up-qian k Start: 01-19-2024 End: 01-19-2024 Patient encounter procedure 01/19/2024 10:00 AM EDT Appointment Radiology [address] [place] [address] Nodule of external ear, left [H61.892] Radiology Comment on above: Nodule of external e ar, left [H61.892] Start: 01-12-2024 End: 01-12-2024 Patient encounter procedure 01/12/2024 11:00 AM EDT Office Visit [facility] [address] [place] [address] Guille Conde MD [address] [place] [address] Lump behind left ear/ Sleep apnea [facility] Comment on above: Lump behind left ear / Sleep apnea Start: 01-11-2024 End: 04-11-2024 Lipid 1996 panel - Serum or Plasma LIPID PANEL BASIC Lab Routine Elevated lipids Expected: 01/11/2024, Expires: 04/11/2024 [facility] Work Phone: Comment on above: Expected: 01/11/2024 , Expires: 04/11/2024 Start: 2024 End: 2024 Follow-up encounter 2024 9:30 AM EDT [facility] Psychiatry [address] [place] [id number] Kinsey Levine, AMBULATORY CARE COORDINATOR.RETURNED CASE INSPECTOR [address] [facility] [place] [address] 6 WEEK FOLLOW UP Psychiatry Comment on above: 6 WEEK FOLLOW UP Start: 11-28-2023 End: 02-27-2024 Comprehensive metabolic 2000 panel - Serum or Plasma COMPREHENSIVE METABOLIC PANEL Lab Routine Encounter for long-term (current) use of medications Expected: 11/28/2023, Expires: 02/27/2024 [facility] Comment on above: Expected: 11/28/2023 , Expires: 02/27/2024 Start: 11-28-2023 End: 02-27-2024 Lipid 1996 panel - Serum or Plasma LIPID PANEL BASIC Lab Routine Encounter for long-term (current) use of medications Metabolic syndrome Expected: 11/28/2023, Expires: 02/27/2024 [facility] Work Phone: Comment on above: Expected: 11/28/2023 , Expires: 02/27/2024 Start: 11-28-2023 End: 11-28-2023 Follow-up encounter 11/28/2023 10:30 AM EDT [facility] Psychiatry [address] [place] [id number] Kisney Levine, AMBULATORY CARE COORDINATOR.RETURNED CASE INSPECTOR [address] [place] [id number] FOLLOW UP Psychiatry Comment on above: FOLLOW UP Start: 10-21-2023 End: 01-20-2024 CBC W Auto Differential panel - Blood COMPLETE BLOOD COUNT AND DIFFERENTIAL Lab Routine Abnormal hemoglobin (HCC) Expected: 10/21/2023, Expires: 01/20/2024 [facility] Comment on above: Expected: 10/21/2023 , Expires: 01/20/2024 Start: 10-21-2023 End: 01-20-2024 Comprehensive metabolic 2000 panel - Serum or Plasma COMPREHENSIVE METABOLIC PANEL Lab Routine Elevated liver enzymes Expected: 10/21/2023, Expires: 01/20/2024 [facility] Comment on above: Expected: 10/21/2023 , Expires: 01/20/2024 Start: 10-21-2023 End: 01-20-2024 Lipid 1996 panel - Serum or Plasma LIPID PANEL BASIC Lab Routine Metabolic syndrome Expected: 10/21/2023, Expires: 01/20/2024 [facility] Work Phone: Comment on above: Expected: 10/21/2023 , Expires: 01/20/2024 Start: 10-21-2023 End: 10-21-2023 Follow-up encounter 10/21/2023 8:00 AM EDT [facility] Psychiatry [address] [place] [phone] Kinsey Levine, AMBULATORY CARE COORDINATOR.RETURNED CASE INSPECTOR [address] [facility] [place] [address] follow up, labs 10/13/23 Psychiatry Comment on above: follow up, labs 10/12 Start: 09-05-2023 End: 12-05-2023 17-Hydroxyprogesterone [Mass/volume] in Serum or Plasma HYDROXYPROGESTERONE-17 Lab Routine Other acne Hair thinning Expected: 09/05/2023, Expires: 12/05/2023 [facility] Work Phone: Comment on above: Expected: 09/05/2023 , Expires: 12/05/2023 Start: 09-05-2023 End: 12-05-2023 DHEA-S BLD DHEA-S BLD Lab Routine Other acne Hair thinning Expected: 09/05/2023, Expires: 12/05/2023 [facility] Work Phone: Comment on above: Expected: 09/05/2023 , Expires: 12/05/2023 Start: 09-05-2023 End: 12-05-2023 Estradiol (E2) [Mass/volume] in Serum or Plasma ESTRADIOL-17B BLD Lab Routine Hot flashes Irritability Expected: 09/05/2023, Expires: 12/05/2023 [facility] Work Phone: Comment on above: Expected: 09/05/2023 , Expires: 12/05/2023 Start: 09-05-2023 End: 12-05-2023 Follitropin [Units/volume] in Serum or Plasma FSH BLD Lab Routine Hot flashes Irritability Expected: 09/05/2023, Expires: 12/05/2023 [facility] Work Phone: Comment on above: Expected: 09/05/2023 , Expires: 12/05/2023 Start: 09-05-2023 End: 12-05-2023 Testosterone [Mass/volume] in Serum or Plasma TESTOSTERONE TOTAL Lab Routine Other acne Hair thinning Expected: 09/05/2023, Expires: 12/05/2023 [facility] Work Phone: Comment on above: Expected: 09/05/2023 , Expires: 12/05/2023 Start: 07-22-2023 End: 10-21-2023 CBC W Auto Differential panel - Blood CBC + DIFF Lab Routine Encounter for long-term (current) use of medications Expected: 07/22/2023, Expires: 10/21/2023 [facility] Work Phone: Comment on above: Expected: 07/22/2023 , Expires: 10/21/2023 Start: 07-22-2023 End: 10-21-2023 Comprehensive metabolic 2000 panel - Serum or Plasma COMP METABOLIC PANEL Lab Routine Encounter for long-term (current) use of medications Expected: 07/22/2023, Expires: 10/21/2023 [facility] Work Phone: Comment on above: Expected: 07/22/2023 , Expires: 10/21/2023 Start: 07-22-2023 End: 10-21-2023 Hemoglobin A1c in Blood HGB A1C Lab Routine Encounter for long-term (current) use of medications Expected: 07/22/2023, Expires: 10/21/2023 [facility] Work Phone: Comment on above: Expected: 07/22/2023 , Expires: 10/21/2023 Start: 07-22-2023 End: 10-21-2023 Lipid 1996 panel - Serum or Plasma LIPID PANEL BASIC Lab Routine Encounter for long-term (current) use of medications Expected: 07/22/2023, Expires: 10/21/2023 [facility] Work Phone: Comment on above: Expected: 07/22/2023 , Expires: 10/21/2023 Start: 07-22-2023 End: 10-21-2023 Thyrotropin [Units/volume] in Serum or Plasma TSH BLD Lab Routine Encounter for long-term (current) use of medications Expected: 07/22/2023, Expires: 10/21/2023 [facility] Work Phone: Comment on above: Expected: 07/22/2023 , Expires: 10/21/2023 Start: 04-04-2023 End: 06-04-2023 CBC W Auto Differential panel - Blood CBC + DIFF Lab Routine Encounter for long-term (current) use of medications Expected: 04/04/2023, Expires: 06/04/2023 [facility] Work Phone: Comment on above: Expected: 04/04/2023 , Expires: 06/04/2023 Start: 04-04-2023 End: 06-04-2023 Comprehensive metabolic 2000 panel - Serum or Plasma COMP METABOLIC PANEL Lab Routine Encounter for long-term (current) use of medications Expected: 04/04/2023, Expires: 06/04/2023 [facility] Work Phone: Comment on above: Expected: 04/04/2023 , Expires: 06/04/2023 Start: 04-04-2023 End: 06-04-2023 Hemoglobin A1c in Blood HGB A1C Lab Routine Encounter for long-term (current) use of medications Expected: 04/04/2023, Expires: 06/04/2023 [facility] Work Phone: Comment on above: Expected: 04/04/2023 , Expires: 06/04/2023 Start: 04-04-2023 End: 06-04-2023 Lipid 1996 panel - Serum or Plasma LIPID PANEL BASIC Lab Routine Encounter for long-term (current) use of medications Expected: 04/04/2023, Expires: 06/04/2023 [facility] Work Phone: Comment on above: Expected: 04/04/2023 , Expires: 06/04/2023 Start: 04-04-2023 End: 06-04-2023 Thyrotropin [Units/volume] in Serum or Plasma TSH BLD Lab Routine Malaise and fatigue Expected: 04/04/2023, Expires: 06/04/2023 [facility] Work Phone: Comment on above: Expected: 04/04/2023 , Expires: 06/04/2023 Start: 02-18-2023 Covid-19 Vaccine () Covid-19 Vaccine () [facility] Start: 02-18-2023 Influenza vaccination C [facility] Start: 08-13-2022 End: 10-13-2022 Hemoglobin A1c in Blood HGB A1C Lab Routine Encounter for long-term (current) use of medications Expected: 08/13/2022, Expires: 10/13/2022 [facility] Work Phone: Comment on above: Expected: 08/13/2022 , Expires: 10/13/2022 Start: 08-13-2022 End: 10-13-2022 Lipid 1996 panel - Serum or Plasma LIPID PANEL BASIC Lab Routine Encounter for long-term (current) use of medications Expected: 08/13/2022, Expires: 10/13/2022 [facility] Work Phone: Comment on above: Expected: 08/13/2022 , Expires: 10/13/2022 Start: 03-15-2022 [facility] Work Phone: Start: 02-18-2022 Influenza vaccination C [facility] Start: 02-16-2022 [facility] Work Phone: Start: 12-11-2021 [facility] Work Phone: Start: 11-30-2021 End: 11-30-2021 [facility] Work Phone: Start: 11-09-2021 [facility] Work Phone: Start: 11-09-2021 Inhalation therapy procedure [facility] Work Phone: Start: 10-07-2021 [facility] Work Phone: Start: 05-21-2020 HPV TESTING HPV TESTING [facility] Start: 05-21-2020 PAP TESTING PAP TESTING [facility] Start: 05-21-2020 Screening for malignant neoplasm of cervix [facility] Start: 01-10-2012 HPV Vaccine (1 - 3-dose SCDM series) HPV Vaccine (1 - 3-dose SCDM series) [facility] Start: 02-19-2007 PNEUMOCOCCAL (2 - PCV) PNEUMOCOCCAL (2 - PCV) [facility] Start: 02-19-2007 Pneumococcal vaccination [facility] Start: 01-10-2004 Hepatitis B Vaccine (1 of 3 - 19+ 3-dose series) Hepatitis B Vaccine (1 of 3 - 19+ 3-dose series) [facility] Start: 01-10-2004 Shingrix Vaccine (1 of 2) Shingrix Vaccine (1 of 2) [facility] Start: 01-10-2004 Urine microalbumin profile [facility] Start: 2003 [facility] Start: 2003 Hepatitis C screening Hepatitis C [facility] Start: 2003 HIV SCREENING HIV SCREENING [facility] Start: 2003 HIV screening HIV Screening [facility] Start: 1995 Meningococcal B Vaccine (1 of 4 - Increased Risk) Meningococcal B Vaccine (1 of 4 - Increased Risk) [facility] Start: 1995 Meningococcal B Vaccine (1 of 5 - Increased Risk) Meningococcal B Vaccine (1 of 5 - Increased Risk) [facility] Start: 1990 COVID-19 VACCINE (#1) COVID-19 VACCI NE (#1) [facility] Start: 1990 COVID-19 VACCINE (1) COVID-19 VACCIN E (1) [facility] Start: 1987 Meningococcal Conjugate Vaccine (1 - Risk 2-dose series) Meningococcal Conjugate Vaccine (1 - Risk 2-dose series) [facility] Start: 04-11-1986 Hib Vaccine (1 of 1 - Risk 1-dose series) Hib Vaccine (1 of 1 - Risk 1-dose series) [facility] Start: 1985 COVID-19 VACCINE (#1) COVID-19 VACCI NE (#1) [facility] Start: 1985 HEPATITIS B (1 of 3 - 3-dose series) HEPATITIS B (1 of 3 - 3-dose series) [facility] Start: 1985 Hepatitis B Vaccine (1 of 3 - 3-dose series) Hepatitis B Vaccine (1 of 3 - 3-dose series) [facility] COVID & INFLUENZA A/ B & RSV PCR, ROUTINE COVID & INFLUENZA A/B & RSV PCR, ROUTINE Microbiology Routine Viral upper respiratory illness 02/29/2024 10:30 AM EDT [facility] Work Phone: COVID & INFLUENZA A/ B & RSV PCR, ROUTINE COVID & INFLUENZA A/B & RSV PCR, ROUTINE Microbiology Routine URI, acute Ordered: 10/15/2024 [facility] Work Phone: Comment on above: Ordered: 10/15/2024 Patient Education [facility] Work Phone: Patient referral [facility] Work Phone: End: 01-17-2025 Polysomnogram POLYSOMNOGRAM (PSG) Procedures Routine Daytime somnolence 1 Occurrences starting 01/18/2024 until 01/17/2025 [facility] Comment on above: 1 Occurrences starti ng 01/18/2024 until 01/17/2025 End: 02-16-2025 US Head and neck soft tissue US HEAD/NECK SOFT TISSUE OTHER Radiology Routine Nodule of external ear, left 1 Occurrences starting 01/18/2024 until 02/16/2025 [facility] Work Phone: Comment on above: 1 Occurrences starti ng 01/18/2024 until 02/16/2025 US Head and neck sof t tissue US HEAD/NECK SOFT TISSUE OTHER Radiology Routine Nodule of external ear, left 01/19/2024 10:18 AM EDT [facility] Phone[facility] Immunizations Immunization Date Immunization Notes Care Provider Javi dalal 10-17-2012 RHO(D) immune globul in- IV or IM Coby Narvaez AMBULATORY CARE COORDINATOR.RETURNED CASE INSPECTOR Work Phone: [facility] 06-18-2009 RHO(D) immune globul in- IV or IM Coby Narvaez AMBULATORY CARE COORDINATOR.RETURNED CASE INSPECTOR Work Phone: [facility] Work Phone: 02-19-2006 pneumococcal polysaccharide vaccine, 23 valent Coby Narvaez AMBULATORY CARE COORDINATOR.RETURNED CASE INSPECTOR Work Phone: [facility] Payers Date Payer Category Payer Self-pay [id number] 2023 Medicare HUMANA MEDICARE HU[employer]NA GOLD PLUS [id number] 2023-Present [phone] [address] [address] [place] [address] HMO [id number] 2023 Medicare (Managed Care) HUMANA G OLD PLUS [id number] 2023 Medicaid [id number] 2023 Private Health Insurance [id number] 2018 Medicaid [employer] [id number] 2018-Present [phone] [address] [place] [address] Medicaid [id number] 2018 Medicaid [id number] 2012 Unknown [id number] 2012 Unknown [id number] Unknown [id number] Unknown [id number] Social History Date Type Detail Facility [facility] Work Phone: Start: 10-07-2021 End: 03-15-2022 Tobacco smoking status TNIS Unknown if ever smoked [facility] Work Phone: Start: 1985 Sex Assigned At Female [facility] Start: 11-06-2018 End: 02-29-2024 Tobacco smoking status TNIS Smokes tobacco daily [facility] Work Phone: History of tobacco use Cigarette Smoker C [facility] Work Phone: Start: 11-06-2018 End: 11-10-2022 Cigarettes smoked current (pack per day) - Reported 1 [facility] Start: 11-06-2018 End: 02-29-2024 Tobacco use and exposure Smokeless tobacco non-user [facility] Work Phone: Start: 05-25-2021 End: 02-29-2024 Alcohol intake Current drinker of alcohol (finding) [facility] Start: 01-22-2020 End: 07-10-2020 History SDOH Alcohol Frequency 2 [facility] Start: 01-22-2020 End: 07-10-2020 History SDOH Alcohol Std Drinks 1 [facility] Start: 05-25-2012 History SDOH Alcohol Comment occasionally,NOT WHILE [facility] Start: 01-22-2020 History SDOH Social Connections Phone 4 [facility] Start: 01-22-2020 History SDOH Social Connections Living 8 [facility] Start: 01-22-2020 History SDOH Physical Activity DPW 0 [facility] Start: 01-22-2020 History SDOH Stress 3 [facility] Start: 01-22-2020 Education 10 [facility] Start: 01-22-2020 End: 11-10-2022 Social connection and isolation panel [facility] Do you belong to any clubs or organizations such as latter-day groups, unions, fraternal or athletic groups, or school groups? No [facility] Are you now , , , , never or living with a partner? Living with partner [facility] How often to you hav e a drink containing alcohol? Monthly or less [facility] How many standard dr inks containing alcohol do you have on a typical day? 1 or 2 [facility] How often do you hav e 6 or more drinks on 1 occasion? Never [facility] How hard is it for y ou to pay for the very basics like food, housing, medical care, and heating Hard [facility] Start: 05-21-2012 Adult Depression Screening Assessment 2 [facility] Do you feel stress - tense, restless, nervous, or anxious, or unable to sleep at night because your mind is troubled all the time - these days [OSQ] To some extent [facility] (I/We) worried gunjan er (my/our) food would run out before (I/we) got money to buy more. Never true [facility] Start: 10-15-2021 Gender identity Identifies as female gender (finding) [facility] Start: 10-15-2021 Sexual orientation Heterosexual (finding) [facility] Do you feel stress - tense, restless, nervous, or anxious, or unable to sleep at night because your mind is troubled all the time - these days [OSQ] Rather much [facility] Start: 08-23-2024 Sex Female (finding) [facility] Medical Equipment Procedure Code Equipment Code Equipment Origin al Text Equipment Identifier Dates Sys Ctrl Essure 2 Dev - [id number] Start: 06-04-2014 Functional Status Date Assessment Result Facility 11-27-2014 Are you deaf, or do you have serious difficulty hearing No 11/27/2014 12:52 PM GEOVANNIT Pattie Chavez MA No [facility] 11-27-2014 Are you blind, or do you have serious difficulty seeing, even when wearing glasses No 11/27/2014 12:52 PM Pattie Cancino MA No [facility] 11-27-2014 Do you have serious difficulty walking or climbing stairs No 11/27/2014 12:52 PM EDT Pattie Chavez MA No [facility] 11-27-2014 Do you have difficul ty dressing or bathing No 11/27/2014 12:52 PM EDT Pattie Chavez MA No [facility] 11-27-2014 Because of a physica l, mental, or emotional condition, do you have difficulty doing errands alone such as visiting a physician's office or shopping No 11/27/2014 12:52 PM EDT Pattie Chavez MA No [facility] Mental Status Date Assessment Result Facility 08-23-2024 Cognitive function Level Of Cons ciousness Awake;Alert;Appropriate;Fol lows [facility] Work Phone: 03-15-2022 Cognitive function Level Of Cons ciousness Awake;Alert;Appropriate;Fol lows [facility] Work Phone: 12-11-2021 Cognitive function Level Of Cons ciousness Awake;Alert;Appropriate;Fol lows [facility] Work Phone: 11-30-2021 Cognitive function Level Of Cons ciousness Awake;Alert;Appropriate;Fol lows [facility] Work Phone: 11-09-2021 Cognitive function Voice/Name [facility] Work Phone: 10-07-2021 Cognitive function Level Of Cons ciousness Awake;Alert;Appropriate;Fol lows [facility] Work Phone: 11-27-2014 Because of a physica l, mental, or emotional condition, do you have serious difficulty concentrating, remembering, or making decisions No 11/27/2014 12:52 PM EDT Pattie Chavez MA No [facility] Clinical Notes 03-29-2013 to 04-10-2025 Telephone Encounter - Lainey Jeffries LPN - 03/01/2025 5:22 PM EDTTelephone Encounter - Lainey Jeffries LPN - 03/01/2025 5:22 PM EDTTelephone Encounter - Lainey Jeffries LPN - 03/01/2025 4:07 PM EDT Note Date & Type Note Facility 04-10-2025 Note HNO ID: [id number] Author: KINSEY LEVINE APRN.BARBARA Service: ? Author Type: Nurse Practitioner Type: Progress Notes Filed: 04/18/2025 16:34 Note Text: FOLLOW UP - PSYCHIATRIC PROGRESS [...] visit. Either the patient or their legal hr representative has been informed of the risks and benefits of -- and alternatives to -- treatment through a remote evaluation and consents to proceed with the evaluation remotely. Recording using ambient [email or web address] software for draft documentation of the visit was discussed with the patient/authorized hr representative; all questions welcomed and answered. Patient/authorized hr representative agreed to proceed CC: Outpatient follow-up and safety monitoring of previously prescribed psychiatric medication, psychotherapy or other treatment HPI: Kristel is a 40-year-old female with anxiety and depression presenting for follow-up. Kristel reports ongoing fatigue and low energy. She recently started taking risperdal, taking 0.5 mg nightly, which she describes as less sedating than her previous medication. However, daytime dosing causes excessive sleepiness, so she restricts use to nighttime only. Since starting the medication, she has experienced only one nightmare. She also reports morning nausea with a burning sensation, which she suspects may be acid reflux. She has been using Tums and Pepto-Bismol for relief. She is eating more regularly, with her boyfriend preparing healthier meals, and she is consuming more fruits such as apples and grapes. She continues to experience mood swings and crying episodes. She reports increased back and leg pain, managed with gabapentin 400 mg TID, pain relievers, ice packs, and heating pads. She also notes that her feet have been very cold despite wearing socks, though she denies color changes. She expresses concern about a family history of vascular disease, blood clots, and brain aneurysm in her mother and sister. She has been experiencing frequent headaches and is monitoring her blood sugar levels, which she notes have been decreasing. Risks and benefits of the medication, including any black box warnings, were discussed with the patient. Interval Progress: Slightly improved PATIENT DATA: Generalized Anxiety Disorder Scale (ZAIRE-7) 02/11/2025 03/15/2025 04/10/2025 ZAIRE - 7 SCORES Score 13 12 11 (0-4) minimal anxiety, (5-9) mild anxiety, (10-14) moderate anxiety, (15-21) severe anxiety Patient Health Questionnaire (PHQ-9) 02/11/2025 03/15/2025 04/10/2025 PHQ-9 Score 10 11 9 (0-4) minimal depression, (5-9) mild depression, (10-14) moderate depression, (15-19) moderately severe depression, (20-27) severe depression PROMIS Global Health 08/01/2024 11/19/2024 02/11/2025 PROMIS Global Health - (T-Scores - the mean of general population = 50. Five points is a clinically meaningful difference.) Physical T-Score 39.8 39.8 37.4 39.8 Mental T-Score 31.3 31.3 33.8 31.3 PAST MEDICAL HISTORY Diagnosis Date Abnormal [...] Current Outpatient Medications Medication Sig Dispense Refill risperiDONE (RISPERDAL) 1 mg tablet Take 1 tablet by mouth daily at bedtime. 30 tablet 1 gabapentin (NEURONTIN) 400 mg capsule Take 1 capsule by mouth three times a day for 60 days. 90 capsule 1 albuterol HFA (PROVENTIL HFA, VENTOLIN HFA) 90 mcg/actuation inhaler Inhale 2 Puffs as instructed every 4 hours as needed for wheezing/shortness of breath. 1 Each 0 dicyclomine (BENTYL) 10 mg capsule TAKE 1 CAPSULE THREE TIMES DAILY BEFORE MEALS No current facility-administered medications for this visit. ROS: See HPI PFSH: See HPI VITAL SIGNS: There were no vitals filed for this visit. MENTAL STATUS EXAM: Mental Status Exam General/Sensorium: Alert Orientation: AAOx3 Appearance: Casually dressed Eye contact: Appropriate Demeanor: Appropriately interactive Motor a (more content not included)... [facility] 03-15-2025 Note HNO ID: [id number] Author: KINSEY LEVINE APRN.RETURNED CASE INSPECTOR Service: ? Author Type: Nurse Practitioner Type: Progress Notes Filed: 03/26/2025 22:19 Note Text: FOLLOW UP - PSYCHIATRIC PROGRESS [...] visit. Either the patient or their legal hr representative has been informed of the risks and benefits of -- and alternatives to -- treatment through a remote evaluation and consents to proceed with the evaluation remotely. Recording using [employer] software for draft documentation of the visit was discussed with the patient/authorized hr representative; all questions welcomed and answered. Patient/authorized hr representative agreed to proceed CC: Outpatient follow-up and safety monitoring of previously prescribed psychiatric medication, psychotherapy or other treatment HPI: Kristel is a 40-year-old female with a history of bipolar II disorder and anxiety presenting for follow-up. Kristel reports a significant exacerbation of depressive symptoms over the past two months since discontinuing medication. She describes increased frequency of crying spells, irritability, and a pervasive sense of feeling down. She also notes a marked decrease in appetite, stating she is just not hungry, which she associates with her depressive state. This has led to noticeable weight loss, as observed by family members. She reports disrupted sleep patterns, including the onset of nightmares over the past few weeks. She feels mentally exhausted, stating, I'm exhausted... my mind and everything, I'm exhausted. She attributes her mental fatigue to the resurgence of depressive symptoms and the absence of medication. She also reports chronic pain, including shoulder pain persisting for four days, as well as back and leg pain. She mentions a previous ER visit where she was informed of nerve damage in her neck. She is currently taking gabapentin and using heat and ice therapy for pain management. She believes that her physical pain may be contributing to her mental state, stating, I'm in pain... I'm not lying there's so many times that my family here like I'll sneak off to a room just to you know kind of cry and try to calm down because I'm in pain. She expresses reluctance to ride in cars again, a behavior she associates with her current mental state. She also reports increased emotional sensitivity, noting that a recent conversation with her father led to tears over a minor comment. She has not contacted Dr. Conde for her pain management, citing her current mental state as a barrier to addressing her physical health needs. She acknowledges the need to manage her mental health before addressing her physical pain. She is currently taking gabapentin and Valium. She denies any issues with these medications and requests a refill for gabapentin. Risks and benefits of the medication, including any black box warnings, were discussed with the patient. Interval Progress: Worse PATIENT DATA: Generalized Anxiety Disorder Scale (ZAIRE-7) 01/07/2025 02/11/2025 03/15/2025 ZAIRE - 7 SCORES Score 10 13 12 (0-4) minimal anxiety, (5-9) mild anxiety, (10-14) moderate anxiety, (15-21) severe anxiety Patient Health Questionnaire (PHQ-9) 01/07/2025 02/11/2025 03/15/2025 PHQ-9 Score 6 10 11 (0-4) minimal depression, (5-9) mild depression, (10-14) moderate depression, (15-19) moderately severe depression, (20-27) severe depression PROMIS [facility] 08/01/2024 11/19/2024 02/11/2025 PROMIS [facility] - (T-Scores - the mean of general population = 50. Five points is a clinically meaningful difference.) Physical T-Score 39.8 39.8 37.4 39.8 Mental T-Score 31.3 31.3 33.8 31.3 PAST MEDICAL HISTORY Diagnosis Date Abnormal [...] Current Outpatient Medications Medication Sig Dispense Refill risperiDONE (RISPERDAL) 0.5 mg tablet Take 1 tablet by mouth eric (more content not included)... [facility] 03-12-2025 Note HNO ID: [id number] Author: KINSEY LEVINE APRN.RETURNED CASE INSPECTOR Service: ? Author Type: Nurse Practitioner Type: Progress Notes Filed: 03/12/2025 18:24 Note Text: Patient did not come in for her appointment with the provider today. She did not answer her phone when she was contacted by this provider's nurse. [facility] 03-01-2025 Telephone encounter Note Kwesi through [employer] faxed. Lainey Jeffries LPN Pt also asking if she can have an RX for lunesta to help with sleep. Lainey Jeffries LPN [facility] 03-01-2025 Miscellaneous Notes Kwesi through [employer] faxed. Lainey Jeffries LPN Pt also asking if she can have an RX for lunesta to help with sleep. Lainey Jeffries LPN documented in this encounter [facility] 03-01-2025 Telephone encounter Note Updated patient on Rexulti RX being covered by insurance. Pt has [facility] for a secondary insurance, so pt is going to call pharm and see if that will cover the RX. Will call back to office with response. Lainey Jeffries LPN [facility] 03-01-2025 Miscellaneous Notes Updated patient on Rexulti RX being covered by insurance. Pt has [employer] for a secondary insurance, so pt is going to call pharm and see if that will cover the RX. Will call back to office with response. Lainey Jeffries LPN documented in this encounter [facility] 02-28-2025 Note Addended by: KINSEY LEVINE on: 02/28/2025 03:10 PM Modules accepted: Orders [facility] 02-28-2025 Miscellaneous Notes Addended by: KINSEY LEVINE on: 02/28/2025 03:10 PM Modules accepted: Orders Noted that the insurance denied Rexulti because they thought it was for MDD and not bipolar 2 disorder. A new prescription has been sent to the pharmacy with the bipolar 2 diagnosis. PA denial for Rexulti, pharmacy review scanned to chart for you to review. Lainey Jeffries LPN documented in this encounter [facility] 02-28-2025 Telephone encounter Note Noted that the insurance denied Rexulti because they thought it was for MDD and not bipolar 2 disorder. A new prescription has been sent to the pharmacy with the bipolar 2 diagnosis. [facility] 02-28-2025 Telephone encounter Note PA denial for Rexulti, pharmacy review scanned to chart for you to review. Lainey Jeffries LPN [facility] 02-25-2025 Telephone encounter Note PA has been completed and sent to cover my meds. Lainey Jeffries LPN [facility] 02-25-2025 Miscellaneous Notes PA has been completed and sent to cover my meds. Lainey Jeffries LPN Patient calls to report that she spoke to the pharmacist at [facility] in regards to Prior Authorization for Rexulti. Patient was instructed to contact [employer] which she did and [employer] told her PA needed to be submitted through [employer] and she was given contact information. [employer]: Sheila Flood RN documented in this encounter [facility] 02-12-2025 Telephone encounter Note Patient calls to report that she spoke to the pharmacist at [facility] in regards to Prior Authorization for Rexulti. Patient was instructed to contact [employer] which she did and [employer] told her PA needed to be submitted through [employer] and she was given contact information. [employer]: Sheila Flood RN [facility] 02-12-2025 Note Patient Outreach (FA MPWS) KRISTEL CHILEL ([id number]) 1985 F CHT Date Time Provider Department 02/12/25 GUILLE CONDE During your visit today, we recorded the following information about you: Allergies As of Date: 02/12/2025 Noted Allergy Reaction CATS 01/27/2009 Comments: SNEEZING,WATERY EYES DOG HAIR 01/27/2009 10 - Anaphylaxis Comments: SNEEZING, WATERY EYES SULFA (SULFONAMIDE ANTIBIOTICS) 06/03/2009 4 - Hives Date Reviewed: 10/15/2024 Reviewed by: Pattie Chavez MA - Fully Assessed Visit Diagnosis:Encounter for screening mammogram for breast cancer [Z12.31] Order(s):ADRIEN SCREENING W OKSANA [[id number]] Order #: [id number] FUTURE Prescriptions as of 03/15/2025 - brexpiprazole (REXULTI) 1 mg tablet Take 1 tablet by mouth once daily. For bipolar 2 depression - gabapentin (NEURONTIN) 400 mg capsule Take 1 capsule by mouth three times a day for 60 days. - albuterol HFA (PROVENTIL HFA, VENTOLIN HFA) 90 mcg/actuation inhaler Inhale 2 Puffs as instructed every 4 hours as needed for wheezing/shortness of breath. - dicyclomine (BENTYL) 10 mg capsule TAKE 1 CAPSULE THREE TIMES DAILY BEFORE MEALS Problem List As Of Date 02/12/2025 Noted Resolved Tobacco use disorder [F17.200] 08/06/2008 06/06/2012 Galactorrhea not Associated with Childbirth [N6*11/29/2008 10/10/2009 Mastodynia [N64.4] 11/29/2008 10/10/2009 Poor Grth-Antepart [O36.5990] 08/20/2009 10/10/2009 DEPRESSION [F32.89] 10/28/2009 06/06/2012 Routine general medical examination at [facility]*02/19/2010 06/06/2012 Class: Chronic Routine gynecological examination [Z01.419] [...] disorder (HCC) [F31.81] 04/27/2021 Encounter Status:Closed by JACQUELINE ALVESUSER on 03/15/25 [facility] 02-11-2025 Instructions Kinsey Levine, AMBULATORY CARE COORDINATOR.RETURNED CASE INSPECTOR - 02/11/2025 4:54 PM EDT - Nurse will contact pharmacy to resolve issues with obtaining Rexulti. - Patient advised to check with insurance company for other in-network pharmacies. - Refilled gabapentin at current dosage. - Refilled diazepam with updated instructions to take 1 tablet PO BID PRN; provided 60 tablets for 30 days. - Advised patient to take diazepam before court appearance to manage anxiety. - Will provide an update on the Rexulti prescription status by tomorrow. - Follow-up appointment will be scheduled after resolving the medication issue. For those experiencing a suicidal crisis: --call the National Suicide Prevention Lifeline at 988 (979-597-4340) --text the Crisis Text Line (text HOME to 782093) --call 871 and let them know you are having a mental health crisis or go to your nearest Emergency Room for stabilization. --You can also call Mobile Crisis at [phone]. -- You may call the department appointment line at [phone] to schedule your appointment. -- Please call my nurse at [phone] or send me a message in [employer] with any questions or concerns between appointments. documented in this encounter [facility] 02-11-2025 Note HNO ID: [id number] Author: KINSEY LEVINE APRN.BARBARA Service: ? Author Type: Nurse Practitioner Type: Progress Notes Filed: 02/11/2025 16:55 Note Text: FOLLOW UP - PSYCHIATRIC PROGRESS [...] visit. Either the patient or their legal hr representative has been informed of the risks and benefits of -- and alternatives to -- treatment through a remote evaluation and consents to proceed with the evaluation remotely. Recording using [employer] software for draft documentation of the visit was discussed with the patient/authorized hr representative; all questions welcomed and answered. Patient/authorized hr representative agreed to proceed CC: Outpatient follow-up and safety monitoring of previously prescribed psychiatric medication, psychotherapy or other treatment HPI: Patient is a 40-year-old female with a history of depression and anxiety, presenting for follow-up on medication management. Patient reports significant difficulty obtaining Rexulti due to issues with prior authorization and insurance coverage. She has been without a mood stabilizer since discontinuing Latuda as instructed at the last visit, leading to increased symptoms of depression and anxiety. She describes feeling tired with no energy, experiencing frequent nightmares, and tossing and turning at night, resulting in poor sleep quality. She has been drinking hot chocolate before bed to help with sleep but continues to struggle. Her eating habits remain inconsistent, and she is unsure if she is getting adequate nutrition despite taking vitamins. Her anxiety has been out of the roof, affecting her ability to complete tasks such as getting blood work done. She reports feeling dizzy and off-balance, particularly in situations where she is uncomfortable, such as in the car or at the courthouse. She has a court appearance on the and expresses significant anxiety about attending. She has been using Valium to manage her anxiety and panic symptoms and is currently taking gabapentin, which she reports is helping with her back and leg pain. She continues to smoke cigarettes and is trying to reduce her intake. Risks and benefits of the medication, including any black box warnings, were discussed with the patient. Interval Progress: Worse PATIENT DATA: Generalized Anxiety Disorder Scale (ZAIRE-7) 11/19/2024 01/07/2025 02/11/2025 ZAIRE - 7 SCORES Score 12 10 13 (0-4) minimal anxiety, (5-9) mild anxiety, (10-14) moderate anxiety, (15-21) severe anxiety Patient Health Questionnaire (PHQ-9) 11/19/2024 01/07/2025 02/11/2025 PHQ-9 Score 8 6 10 (0-4) minimal depression, (5-9) mild depression, (10-14) moderate depression, (15-19) moderately severe depression, (20-27) severe depression PROMIS [facility] 08/01/2024 11/19/2024 02/11/2025 PROMIS [facility] - (T-Scores - the mean of general population = 50. Five points is a clinically meaningful difference.) Physical T-Score 39.8 39.8 37.4 39.8 Mental T-Score 31.3 31.3 33.8 31.3 PAST MEDICAL HISTORY Diagnosis Date Abnormal [...] Medications Medication Sig Dispense Refill gabapentin (NEURONTIN) 400 mg capsule Take 1 capsule by mouth three times a day for 60 days. 90 capsule 1 diazePAM (VALIUM) 5 mg tablet Take 1 tablet by mouth two times a day as needed for anxiety or muscle spasm for up to 30 days. 60 tablet 0 brexpiprazole (REXULTI) 1 mg tablet Take 1 tablet by mouth once daily. 30 tablet 1 albuterol HFA (PROVENTIL HFA, VENTOLIN HFA) 90 mcg/actuation inhaler Inhale 2 Puffs as instructed every 4 hours as needed for wheezing/shortness of breath. 1 Each 0 dicyclomine (BENTYL) 10 mg capsule TAKE 1 CAPSULE THREE TIMES DAILY BEFORE MEALS No current facility-administered medications for this visit. ROS: See HPI PFSH: See HPI VITAL SIGNS: There were no vitals file (more content not included)... [facility] 02-11-2025 History of Presen t illness Narrative Images from the original note were not included. FOLLOW UP - PSYCHIATRIC PROGRESS NOTE Visit [...] visit. Either the patient or their legal hr representative has been informed of the risks and benefits of -- and alternatives to -- treatment through a remote evaluation and consents to proceed with the evaluation remotely. Recording using [employer] software for draft documentation of the visit was discussed with the patient/authorized hr representative; all questions welcomed and answered. Patient/authorized hr representative agreed to proceed CC: Outpatient follow-up and safety monitoring of previously prescribed psychiatric medication, psychotherapy or other treatment HPI: Patient is a 40-year-old female with a history of depression and anxiety, presenting for follow-up on medication management. Patient reports significant difficulty obtaining Rexulti due to issues with prior authorization and insurance coverage. She has been without a mood stabilizer since discontinuing Latuda as instructed at the last visit, leading to increased symptoms of depression and anxiety. She describes feeling tired with no energy, experiencing frequent nightmares, and tossing and turning at night, resulting in poor sleep quality. She has been drinking hot chocolate before bed to help with sleep but continues to struggle. Her eating habits remain inconsistent, and she is unsure if she is getting adequate nutrition despite taking vitamins. Her anxiety has been out of the roof, affecting her ability to complete tasks such as getting blood work done. She reports feeling dizzy and off-balance, particularly in situations where she is uncomfortable, such as in the car or at the courthouse. She has a court appearance on the and expresses significant anxiety about attending. She has been using Valium to manage her anxiety and panic symptoms and is currently taking gabapentin, which she reports is helping with her back and leg pain. She continues to smoke cigarettes and is trying to reduce her intake. Risks and benefits of the medication, including any black box warnings, were discussed with the patient. Interval Progress: Worse PATIENT DATA: Generalized Anxiety Disorder Scale (ZAIRE-7) 11/19/2024 01/07/2025 02/11/2025 ZAIRE - 7 SCORES Score 12 10 13 (0-4) minimal anxiety, (5-9) mild anxiety, (10-14) moderate anxiety, (15-21) severe anxiety Patient Health Questionnaire (PHQ-9) 11/19/2024 01/07/2025 02/11/2025 PHQ-9 Score 8 6 10 (0-4) minimal depression, (5-9) mild depression, (10-14) moderate depression, (15-19) moderately severe depression, (20-27) severe depression PROMIS [facility] 08/01/2024 11/19/2024 02/11/2025 PROMIS [facility] - (T-Scores - the mean of general population = 50. Five points is a clinically meaningful difference.) Physical T-Score 39.8 39.8 37.4 39.8 Mental T-Score 31.3 31.3 33.8 31.3 PAST MEDICAL HISTORY Diagnosis Date Abnormal [...] 12 VAGINAL HYSTERECTOMY UTERUS 250 GM/< 06/19/15 [facility] Current Outpatient Medications Medication Sig Dispense Refill gabapentin (NEURONTIN) 400 mg capsule Take 1 capsule by mouth three times a day for 60 days. 90 capsule 1 diazePAM (VALIUM) 5 mg tablet Take 1 tablet by mouth two times a day as needed for anxiety or muscle spasm for up to 30 days. 60 tablet 0 brexpiprazole (REXULTI) 1 mg tablet Take 1 tablet by mouth once daily. 30 tablet 1 albuterol HFA (PROVENTIL HFA, VENTOLIN HFA) 90 mcg/actuation inhaler Inhale 2 Puffs as instructed every 4 hours as needed for wheezing/shortness of breath. 1 Each 0 dicyclomine (BENTYL) 10 mg capsule TAKE 1 CAPSULE THREE TIMES DAILY BEFORE MEALS No current facility-administered medications for this visit. ROS: See HPI PFSH: See HPI VITAL SIGNS: There were no vitals filed for this visit. MENTAL STATUS EXAM: Mental Status Exam DATA REVIEWED: The PDMP report was reviewed and found to be appropriate without any signs of misuse or diversion. Psychiatric scales, Labs, and Electronic medical record ASSESSMENT & PLAN: 1. 1. Bipolar 2 disorder (HCC) (F31.81) 2. ZAIRE (generalized anxiety disorder) (F41.1) 3. Panic attacks (F41.0) 4. Psychosocial stressors (Z65.8) Patient has been off Latuda since the last visit and has not been able to start Rexulti due to ongoing insurance and pharmacy issues, resulting in worsening mood, increased anxiety, panic attacks, irritability, and insomnia. - Nurse to contact pharmacy to resolve prior authorization issues for Rexulti; will follow up with patient by tomorrow. - Advised patient to contact alternative pharmacies to determine if they accept her insurance. - Continue gabapentin at current dose; refill provided. - Refill Valium with updated instructions to take 1 tablet up to 2 times daily as needed for anxiety and panic symptoms; 60 tablets provided for 30 days. - Advised patient to use Valium prior to court appearance on the to help manage anxiety and panic symptoms. - Discussed that Valium will help with panic symptoms but not with depression. - Discussed that Rexulti can be taken at any time of day and may help with depression and sleep. - Advised patient to hold off on blood work until Rexulti is started. - Follow-up to be scheduled after resolution of Rexulti prescription issues. 5. Encounter for long-term (current) use of medications (Z79.899) Patient is currently taking gabapentin and Valium for management of anxiety and pain symptoms. - Continue gabapentin at current dose; refill provided. - Refill Valium with updated instructions to take 1 tablet up to 2 times daily as needed for anxiety and panic symptoms; 60 tablets provided for 30 days. Medical Decision Making: Problems: High: Chronic illness with severe change Risk: Moderate: Moderate risk from testing/treatment and Drug management Medical Decision Making Level: 4 - Moderate ADD ON PSYCHOTHERAPY CODE : No SIGNATURE: Kinsey Levine APRN.CNP PATIENT NAME: Kristel Chilel DATE: February 11, 2025 TIME: 2:36 PM documented in this encounter [facility] 01-21-2025 Telephone encounter Note Pt reports she spoke with RENEA who informed her they faxed the PA for Rexulti to Kinsey twice today and wonders if they have the right fax number. RENEA faxing to [phone] (the number given to pt by [facility]'s office). Pt reports she is having trouble sleeping and hasn't had medication for 2 weeks. Please advise and phone pt with reply. [facility] 01-21-2025 Miscellaneous Notes Pt reports she spoke with DDM who informed her they faxed the PA for Rexulti to Kinsey twice today and wonders if they have the right fax number. DDM faxing to [phone] (the number given to pt by Kinsey's office). Pt reports she is having trouble sleeping and hasn't had medication for 2 weeks. Please advise and phone pt with reply. documented in this encounter [facility] 01-17-2025 Telephone encounter Note Called placed to Pharm ([facility]), spoke with Gregg, he is going to send the PA for rexulti. Lainey Jeffries LPN [facility] 01-17-2025 Miscellaneous Notes Called placed to Pharm ([facility]), spoke with Gregg, he is going to send the PA for rexulti. Lainey Jeffries LPN Patient called to report that she provided the Medicaid exemption code to pharmacy as instructed by Chirag. Pharmacy did not know what to do with the exemption code. Please contact patient to advise. PRIOR AUTHORIZATION Medication for Prior Authorization: Rexulti Other formulary meds available : NO Insurance Company: [employer] phone number: [phone] Patient insurance ID number: [id number] Jada Fried LPN documented in this encounter [facility] 01-14-2025 Telephone encounter Note Patient called to report that she provided the Medicaid exemption code to pharmacy as instructed by Chirag. Pharmacy did not know what to do with the exemption code. Please contact patient to advise. [facility] 01-10-2025 Telephone encounter Note PRIOR AUTHORIZATION Medication for Prior Authorization: Rexulti Other formulary meds available : NO Insurance Company: [employer] phone number: [phone] Patient insurance ID number: [id number] Jada Fried LPN [facility] 01-07-2025 Instructions Kinsey Levine APRN.RETURNED CASE INSPECTOR - 01/07/2025 4:43 PM EDT We discussed your concerns about Latuda and your recent symptoms: - You will stop taking Latuda (40 mg) and start Rexulti 1 mg (Brexpiprazole) as a replacement. This has been sent to your pharmacy ([facility]). If possible, pick it up today and begin taking it in the evening or nighttime. - Rexulti may help improve your mood, energy, and motivation. It is less sedating than Latuda. If you notice your sleep worsening, try taking it during the daytime instead. If this does not help, please contact me. - The side effects of Rexulti are similar to Latuda. We will monitor your lab work, including liver enzymes, to ensure there are no issues. - Continue taking Gabapentin three times daily as prescribed. If your sleep worsens, we can consider increasing your nighttime dose to 600 mg. - Let the pharmacist know to use the medicaid exemption code if you experience difficulty getting the Rexulti from the pharmacy due to insurance approval issues. We discussed your recent changes in appetite, weight, and hair thinning: - Your decreased appetite and weight loss may be contributing to your mood changes, fatigue, and hair thinning. - Try to eat nutritionally dense foods, even in small amounts. Consider adding protein shakes, meal replacement shakes, granola bars, or other [id number] options to your diet. - You may start taking a daily women s multivitamin, which includes biotin and vitamin D, to support your overall health. We discussed your upcoming lab work: - In 2 weeks, after starting Rexulti, you will need fasting lab work to monitor your health. This will include: - Lipid panel (cholesterol levels) - A1c (3-month average blood sugar) - Complete Metabolic Panel (CMP) to check electrolytes, liver enzymes, kidney function, and potassium levels. - TSH (thyroid level) - Please schedule an appointment with Dr. Conde before completing the lab work, so any additional tests he recommends can be done at the same time. We discussed your concerns about sleep and mood: - If you experience worsening sleep, mood, or other symptoms, please contact me before your next appointment. - Continue monitoring your symptoms, including sleep patterns, mood changes, and any side effects from Rexulti. Follow-up: - Your next appointment with me is scheduled for February 11 at 2:30 PM. - If you have any issues with the new medication or worsening symptoms, please reach out sooner. Please continue staying hydrated and focusing on improving your nutrition. Let me know if you have any concerns or questions before your next visit. For those experiencing a suicidal crisis: --call the National Suicide Prevention Lifeline at 071 (270-305-2316) --text the Crisis Text Line (text HOME to 779263) --call 911 and let them know you are having a mental health crisis or go to your nearest Emergency Room for stabilization. --You can also call Mobile Crisis at [phone]. -- You may call the department appointment line at [phone] to schedule your appointment. -- Please call my nurse at [phone] or send me a message in [employer] with any questions or concerns between appointments. documented in this encounter [facility] 01-07-2025 Note HNO ID: [id number] Author: KINSEY LEVINE APRN.BARBARA Service: ? Author Type: Nurse Practitioner Type: Progress Notes Filed: 01/07/2025 16:43 Note Text: FOLLOW UP - PSYCHIATRIC PROGRESS [...] visit. Either the patient or their legal hr representative has been informed of the risks and benefits of -- and alternatives to -- treatment through a remote evaluation and consents to proceed with the evaluation remotely. Recording using ambient [employer]YAL[employer] software for draft documentation of the visit was discussed with the patient/authorized hr representative; all questions welcomed and answered. Patient/authorized hr representative agreed to proceed CC: Outpatient follow-up and safety monitoring of previously prescribed psychiatric medication, psychotherapy or other treatment HPI: Patient is a 39-year-old female with a history of anxiety and bipolar depression, presenting for follow-up and medication management. The patient reports a significant decrease in appetite over the past few weeks, describing her eating habits as bird picking. She feels hungry while cooking but loses her appetite when it's time to eat, often feeling full quickly and experiencing bloating. This change has led to concerns about the effectiveness of her current medication, Latuda, which requires a 300-calorie intake for optimal absorption. She fears she is not meeting this requirement, affecting the medication's efficacy. She has noticed increased mood instability and worsening depression, describing herself as extra over the past few weeks. She reports frequent crying spells without clear triggers and feels super lozano. She also experiences fatigue and exhaustion, along with recurrent headaches. Additionally, she has observed significant hair thinning and loss, particularly after showering. Her sleep patterns have changed; she goes to bed later and wakes up earlier than her alarm, attributing this to her body's inability to relax rather than her mind being active. She denies recent nightmares but is concerned about potential sleep disturbances with medication changes. She has been experiencing increased back pain, leg pain, and cold feet, prompting her to plan a visit to her primary care physician. She mentions a family history of vascular disease, which she intends to discuss with her doctor. She also reports muscle cramps and inquires about her potassium levels. She is currently taking gabapentin 3 times a day and is due for a refill. She has been maintaining hydration, drinking water, Powerade, Gatorade, and Pedialyte, while reducing her intake of soda and coffee. Risks and benefits of the medication, including any black box warnings, were discussed with the patient. Interval Progress: Worse PATIENT DATA: Generalized Anxiety Disorder Scale (ZAIRE-7) 09/24/2024 11/19/2024 01/07/2025 ZAIRE - 7 SCORES Score 11 12 10 (0-4) minimal anxiety, (5-9) mild anxiety, (10-14) moderate anxiety, (15-21) severe anxiety Patient Health Questionnaire (PHQ-9) 09/24/2024 11/19/2024 01/07/2025 PHQ-9 Score 8 8 6 (0-4) minimal depression, (5-9) mild depression, (10-14) moderate depression, (15-19) moderately severe depression, (20-27) severe depression PROMIS Global Health 05/10/2024 08/01/2024 11/19/2024 PROMIS Global Health - (T-Scores - the mean of general population = 50. Five points is a clinically meaningful difference.) Physical T-Score 44.9 39.8 39.8 37.4 Mental T-Score 31.3 31.3 31.3 33.8 PAST MEDICAL HISTORY Diagnosis Date Abnormal glandular [...] Current Outpatient Medications Medication Sig Dispense Refill brexpiprazole (REXULTI) 1 mg tablet Take 1 tablet by mouth once daily. 30 tablet 1 gabapentin (NEURONTIN) 400 mg capsule Take 1 capsule by mouth three times a day for 60 days. 90 capsule 1 albuterol HFA (PROVENTIL HFA, VENTOLIN HFA) 90 mcg/actuati (more content not included)... [facility] 01-07-2025 History of Presen t illness Narrative Images from the original note were not included. FOLLOW UP - PSYCHIATRIC PROGRESS NOTE Visit [...] visit. Either the patient or their legal hr representative has been informed of the risks and benefits of -- and alternatives to -- treatment through a remote evaluation and consents to proceed with the evaluation remotely. Recording using [employer] software for draft documentation of the visit was discussed with the patient/authorized hr representative; all questions welcomed and answered. Patient/authorized hr representative agreed to proceed CC: Outpatient follow-up and safety monitoring of previously prescribed psychiatric medication, psychotherapy or other treatment HPI: Patient is a 39-year-old female with a history of anxiety and bipolar depression, presenting for follow-up and medication management. The patient reports a significant decrease in appetite over the past few weeks, describing her eating habits as bird picking. She feels hungry while cooking but loses her appetite when it's time to eat, often feeling full quickly and experiencing bloating. This change has led to concerns about the effectiveness of her current medication, Latuda, which requires a 300-calorie intake for optimal absorption. She fears she is not meeting this requirement, affecting the medication's efficacy. She has noticed increased mood instability and worsening depression, describing herself as extra over the past few weeks. She reports frequent crying spells without clear triggers and feels super lozano. She also experiences fatigue and exhaustion, along with recurrent headaches. Additionally, she has observed significant hair thinning and loss, particularly after showering. Her sleep patterns have changed; she goes to bed later and wakes up earlier than her alarm, attributing this to her body's inability to relax rather than her mind being active. She denies recent nightmares but is concerned about potential sleep disturbances with medication changes. She has been experiencing increased back pain, leg pain, and cold feet, prompting her to plan a visit to her primary care physician. She mentions a family history of vascular disease, which she intends to discuss with her doctor. She also reports muscle cramps and inquires about her potassium levels. She is currently taking gabapentin 3 times a day and is due for a refill. She has been maintaining hydration, drinking water, Powerade, Gatorade, and Pedialyte, while reducing her intake of soda and coffee. Risks and benefits of the medication, including any black box warnings, were discussed with the patient. Interval Progress: Worse PATIENT DATA: Generalized Anxiety Disorder Scale (ZAIRE-7) 09/24/2024 11/19/2024 01/07/2025 ZAIRE - 7 SCORES Score 11 12 10 (0-4) minimal anxiety, (5-9) mild anxiety, (10-14) moderate anxiety, (15-21) severe anxiety Patient Health Questionnaire (PHQ-9) 09/24/2024 11/19/2024 01/07/2025 PHQ-9 Score 8 8 6 (0-4) minimal depression, (5-9) mild depression, (10-14) moderate depression, (15-19) moderately severe depression, (20-27) severe depression PROMIS Global Health 05/10/2024 08/01/2024 11/19/2024 PROMIS Global Health - (T-Scores - the mean of general population = 50. Five points is a clinically meaningful difference.) Physical T-Score 44.9 39.8 39.8 37.4 Mental T-Score 31.3 31.3 31.3 33.8 PAST MEDICAL HISTORY Diagnosis Date Abnormal glandular [...] 12 VAGINAL HYSTERECTOMY UTERUS 250 GM/< 06/19/15 [facility] Current Outpatient Medications Medication Sig Dispense Refill brexpiprazole (REXULTI) 1 mg tablet Take 1 tablet by mouth once daily. 30 tablet 1 gabapentin (NEURONTIN) 400 mg capsule Take 1 capsule by mouth three times a day for 60 days. 90 capsule 1 albuterol HFA (PROVENTIL HFA, VENTOLIN HFA) 90 mcg/actuation inhaler Inhale 2 Puffs as instructed every 4 hours as needed for wheezing/shortness of breath. 1 Each 0 dicyclomine (BENTYL) 10 mg capsule TAKE 1 CAPSULE THREE TIMES DAILY BEFORE MEALS No current facility-administered medications for this visit. ROS: See HPI PFSH: See HPI VITAL SIGNS: There were no vitals filed for this visit. MENTAL STATUS EXAM: Mental Status Exam General/Sensorium: Alert Orientation: AAOx3 Appearance: Casually dressed Eye contact: Appropriate Demeanor: Appropriately interactive Motor activity: Normal Speech: Articulate with appropriate rhythm and volume Mood: Anxious and sad Affect: Congruent with mood Thought process: Linear, logical, and goal-directed Associations: Normal Thought content: Discussing stressors, focused on history, symptoms, and management and future goals or plans Suicidal ideation: SI: no Plan: no Intent: no Homicidal ideation: HI: no Plan: no Intent: no Abnormal/psychotic thoughts: Absent Perceptions: She does not appear internally stimulated. Attention: Intact Memory: Short-term: Intact Long-term: Intact Language: Intact Fund of knowledge: Fair Insight: Improving Judgment: Improving DATA REVIEWED: PDMP website checked and validated. All prescriptions have been APPROPRIATELY filled. No suspicious activity was identified. 01/07/2025 by Kinsey Levine APRN.RETURNED CASE INSPECTOR Psychiatric scales, Labs, and Electronic medical record ASSESSMENT & PLAN: 1. 1. Bipolar 2 disorder (HCC) (F31.81) Current treatment with Latuda 40 mg is suboptimal due to decreased appetite, leading to insufficient caloric intake and reduced efficacy. Patient reports worsening depression, mood instability, and increased irritability over the past few weeks. - Discontinue Latuda. - Initiate Rexulti, to be taken in the evening or nighttime. - Monitor for side effects, including potential changes in sleep patterns. - Scheduled follow-up on February 11 at 1430 to assess response to medication change. 2. ZAIRE (generalized anxiety disorder) (F41.1) Patient reports increased anxiety symptoms, including crying spells and feeling extra over the past few weeks. - Monitor anxiety symptoms with the initiation of Rexulti. - Continue current gabapentin regimen; consider increasing nighttime dose to 600 mg if sleep disturbances occur. 3. Encounter for long-term (current) use of medications (Z79.899) Currently on Latuda and gabapentin. Latuda efficacy compromised due to decreased caloric intake. - Discontinue Latuda and initiate Rexulti. - Refill gabapentin prescription. - Monitor for drug interactions and side effects with new medication regimen. 4. Decreased appetite (R63.0) Significant decrease in appetite over the past few weeks, leading to insufficient caloric intake and concerns about medication efficacy. - Educated patient on the importance of maintaining adequate nutrition. - Recommended nutritionally dense foods, replacement shakes, and protein shakes. - Advised taking a women's multivitamin daily. 5. Headaches (R51.9) Increased frequency of headaches reported over the past few weeks. - Monitor headache frequency and severity with the initiation of Rexulti. 6. Hair loss (L65.9) Notable hair thinning and loss observed, likely related to decreased nutritional intake. - Advised patient to focus on improving nutritional intake. - Recommended taking a women's multivitamin daily. 7. Weight loss (R63.4) Noticeable weight loss over the past few weeks, likely secondary to decreased appetite and insufficient caloric intake. - Monitor weight and nutritional intake. - Ordered baseline lab work, including lipid panel, A1c, and CMP, to be done in 2 weeks after starting Rexulti. - Advised patient to schedule an appointment with Dr. Conde to address back pain and potential vascular issues before lab work. Medical Decision Making: Problems: Moderate: 2+ stable chronic illnesses High: Chronic illness with severe change Data: Unique test result(s) reviewed: 3+ Unique test(s) ordered: 3+ Risk: Moderate: Moderate risk from testing/treatment and Drug management Medical Decision Making Level: 4 - Moderate ADD ON PSYCHOTHERAPY CODE : No SIGNATURE: Kinsey Levine APRN.CNP PATIENT NAME: Kristel Chilel DATE: January 07, 2025 TIME: 2:35 PM documented in this encounter [facility] 12-31-2024 Note HNO ID: [id number] Author: ?, ?, ? Service: ? Author Type: ? Type: Progress Notes Filed: 12/31/2024 12:09 Note Text: POPULATION HEALTH NAVIGATION OUTREACH Action/FYI Patient outreach for HM due; AWV. Spoke with patient and she will schedule on mychart when she is able. Reason for Outreach Care Gap/HCC or Scheduling Wellness Visits Care Gaps due: Medicare Annual Wellness Visit Patient Contacted: Spoke to patient/parent/or legal guardian Patient identified by name and : Yes Care Gap/HCC/Scheduling Wellness actions taken: Patient declined: Patient will contact office directly to schedule Navigation Signature: Coby Bar December 31, 2024 11:59 AM [facility] 12-31-2024 History of Presen t illness Narrative POPULATION HEALTH NAVIGATION OUTREACH Action/FYI Patient outreach for HM due; AWV. Spoke with patient and she will schedule on mychart when she is able. Reason for Outreach Care Gap/HCC or Scheduling Wellness Visits Care Gaps due: Medicare Annual Wellness Visit Patient Contacted: Spoke to patient/parent/or legal guardian Patient identified by name and : Yes Care Gap/HCC/Scheduling Wellness actions taken: Patient declined: Patient will contact office directly to schedule Navigation Signature: Coby Bar December 31, 2024 11:59 AM documented in this encounter [facility] 12-31-2024 Note Patient Outreach (PAPI TNAV) KRISTEL CIHLEL ([id number]) 1985 F CHT Date Time Provider Department 12/31/24 GUILLE CONDE During your visit today, we recorded the following information about you: Antwanconchita BarCoby 12/31/2024 12:09 PM Signed POPULATION HEALTH NAVIGATION OUTREACH Action/FYI Patient outreach for HM due; AWV. Spoke with patient and she will schedule on mychart when she is able. Reason for Outreach Care Gap/HCC or Scheduling Wellness Visits Care Gaps due: Medicare Annual Wellness Visit Patient Contacted: Spoke to patient/parent/or legal guardian Patient identified by name and : Yes Care Gap/HCC/Scheduling Wellness actions taken: Patient declined: Patient will contact office directly to schedule Navigation Signature: Coby Moncadahieubarbara Yosvany December 31, 2024 11:59 AM Allergies As of Date: 12/31/2024 Noted Allergy Reaction CATS 01/27/2009 Comments: SNEEZING,WATERY EYES DOG HAIR 01/27/2009 10 - Anaphylaxis Comments: SNEEZING, WATERY EYES SULFA (SULFONAMIDE ANTIBIOTICS) 06/03/2009 4 - Hives Date Reviewed: 10/15/2024 Reviewed by: Pattie Chavez MA - Fully Assessed Reason for Visit: Population Health Navigation Outreach [3910] Cmt: Nik Castaneda Bryant Prescriptions as of 12/31/2024 - gabapentin (NEURONTIN) 400 mg capsule Take 1 capsule by mouth three times a day for 60 days. - lurasidone (LATUDA) 40 mg tablet Take 1 tablet by mouth daily with food. Take with atleast 300 calories. - albuterol HFA (PROVENTIL HFA, VENTOLIN HFA) 90 mcg/actuation inhaler Inhale 2 Puffs as instructed every 4 hours as needed for wheezing/shortness of breath. - dicyclomine (BENTYL) 10 mg capsule TAKE 1 CAPSULE THREE TIMES DAILY BEFORE MEALS Problem List As Of Date 12/31/2024 Noted Resolved Tobacco use disorder [F17.200] 08/06/2008 06/06/2012 Galactorrhea not Associated with Childbirth [N6*11/29/2008 10/10/2009 Mastodynia [N64.4] 11/29/2008 10/10/2009 Poor Grth-Antepart [O36.5990] 08/20/2009 10/10/2009 DEPRESSION [F32.89] 10/28/2009 06/06/2012 Routine general medical examination at [facility]*02/19/2010 06/06/2012 Class: Chronic Routine gynecological examination [Z01.419] [...] disorder (HCC) [F31.81] 04/27/2021 Encounter Status:Closed by COBY TAN on 12/31/24 [facility] 11-30-2024 Note HNO ID: [id number] Author: ?, ?, ? Service: ? Author Type: ? Type: Progress Notes Filed: 11/30/2024 12:13 Note Text: POPULATION HEALTH NAVIGATION OUTREACH Action/FYI Patient outreach for AWV. Unable to lvm, sent mychart. Reason for Outreach Care Gap/HCC or Scheduling Wellness Visits Care Gaps due: Medicare Annual Wellness Visit Patient Contacted: Unable or unnecessary to reach patient: Unable to leave message MyChart message sent Navigation Signature: Coby Bar November 30, 2024 12:10 PM [facility] 11-30-2024 History of Presen t illness Narrative POPULATION HEALTH NAVIGATION OUTREACH Action/FYI Patient outreach for AWV. Unable to lvm, sent mychart. Reason for Outreach Care Gap/HCC or Scheduling Wellness Visits Care Gaps due: Medicare Annual Wellness Visit Patient Contacted: Unable or unnecessary to reach patient: Unable to leave message MyChart message sent Navigation Signature: Coby Bar November 30, 2024 12:10 PM documented in this encounter [facility] 11-30-2024 Note Patient Outreach (NE TNAV) KRISTEL CHILEL ([id number]) 1985 F CHT Date Time Provider Department 11/30/24 GUILLE CONDE During your visit today, we recorded the following information about you: Coby Tan 11/30/2024 12:13 PM Signed POPULATION HEALTH NAVIGATION OUTREACH Action/FYI Patient outreach for AWV. Unable to lvm, sent mychart. Reason for Outreach Care Gap/HCC or Scheduling Wellness Visits Care Gaps due: Medicare Annual Wellness Visit Patient Contacted: Unable or unnecessary to reach patient: Unable to leave message MyChart message sent Navigation Signature: Coby Bar November 30, 2024 12:10 PM Allergies As of Date: 11/30/2024 Noted Allergy Reaction CATS 01/27/2009 Comments: SNEEZING,WATERY EYES DOG HAIR 01/27/2009 10 - Anaphylaxis Comments: SNEEZING, WATERY EYES SULFA (SULFONAMIDE ANTIBIOTICS) 06/03/2009 4 - Hives Date Reviewed: 10/15/2024 Reviewed by: Pattie Chavez MA - Fully Assessed Reason for Visit: Population Health Navigation Outreach [3910] [facility] [place] Prescriptions as of 11/30/2024 - gabapentin (NEURONTIN) 400 mg capsule Take 1 capsule by mouth three times a day for 60 days. - lurasidone (LATUDA) 40 mg tablet Take 1 tablet by mouth daily with food. Take with atleast 300 calories. - diazePAM (VALIUM) 5 mg tablet Take 1 tablet by mouth once daily as needed for anxiety for up to 30 days. - albuterol HFA (PROVENTIL HFA, VENTOLIN HFA) 90 mcg/actuation inhaler Inhale 2 Puffs as instructed every 4 hours as needed for wheezing/shortness of breath. - dicyclomine (BENTYL) 10 mg capsule TAKE 1 CAPSULE THREE TIMES DAILY BEFORE MEALS Problem List As Of Date 11/30/2024 Noted Resolved Tobacco use disorder [F17.200] 08/06/2008 06/06/2012 Galactorrhea not Associated with Childbirth [N6*11/29/2008 10/10/2009 Mastodynia [N64.4] 11/29/2008 10/10/2009 Poor Grth-Antepart [O36.5990] 08/20/2009 10/10/2009 DEPRESSION [F32.89] 10/28/2009 06/06/2012 Routine general medical examination at [facility]*02/19/2010 06/06/2012 Class: Chronic Routine gynecological examination [Z01.419] [...] disorder (HCC) [F31.81] 04/27/2021 Encounter Status:Closed by COBY TAN on 11/30/24 [facility] 11-19-2024 Instructions Kinsey Levine, JOSE.RETURNED CASE INSPECTOR - 11/19/2024 10:47 AM EDT We discussed your decreased appetite and weight loss: - Continue trying to eat at least 300 calories with your Latuda, as this is necessary for the medication to work effectively. - Consider incorporating meal replacement shakes, such as Boost or Ensure, if eating solid foods is difficult. Avoid protein shakes designed for muscle building. - Try yogurt-based smoothies, such as Oikos or Chobani, which are easy to drink and provide protein. Choose options with or without added sugar based on your overall diet. - Continue eating small, bogs-oy-fevdnr foods like yogurt, applesauce, and pudding, as you ve been doing. - If your appetite does not improve within a week, please contact your primary care provider for further evaluation. We discussed your back pain and nerve pain: - I have increased your gabapentin dosage to 400 mg three times daily to help manage your nerve pain and anxiety. This prescription has been sent to your pharmacy. - Continue using ice packs, heating pads, and bxyc-hvv-pgsahtr pain relievers like Tylenol as needed. - If your back pain worsens or does not improve, please follow up with your primary care provider. We discussed your anxiety and panic attacks: - Continue using diazepam as needed for acute anxiety or panic attacks. A refill has been sent to your pharmacy. - The increased gabapentin dosage should also help reduce anxiety over the next few days. We discussed your fatigue and irritability: - Work on eating consistently and staying hydrated, as this will help improve your energy levels. - If your symptoms persist or worsen, please contact your primary care provider. We discussed your blood work: - We will hold off on blood work for now to ensure accurate results. Once your eating habits improve, we will revisit this in a couple of months. Follow-Up: - Your next virtual appointment with me is scheduled for January 07, at 2:30 PM. - Please let your daughter know about the care plan, as she is helping monitor your symptoms. She is also welcome to contact me if needed. - If your pain, appetite, or anxiety do not improve within a week, please reach out to your primary care provider. Your prescriptions have been sent to your pharmacy at [facility]. Please take care, and I look forward to following up with you in a couple of months. For those experiencing a suicidal crisis: --call the National Suicide Prevention Lifeline at 988 (664.584.8226) --text the Crisis Text Line (text HOME to 752999) --call 091 and let them know you are having a mental health crisis or go to your nearest Emergency Room for stabilization. --You can also call Mobile Crisis at [phone]. -- You may call the department appointment line at [phone] to schedule your appointment. -- Please call my nurse at [phone] or send me a message in [employer] with any questions or concerns between appointments. documented in this encounter [facility] 11-19-2024 Note HNO ID: [id number] Author: KINSEY LEVINE APRN.[facility] Service: ? Author Type: Nurse Practitioner Type: Progress Notes Filed: 11/19/2024 10:48 Note Text: FOLLOW UP - PSYCHIATRIC PROGRESS NOTE Visit Type: Virtual Visit utilizing two-way audio [...] visit. Either the patient or their legal hr representative has been informed of the risks and benefits of -- and alternatives to -- treatment through a remote evaluation and consents to proceed with the evaluation remotely. Recording using [employer] software for draft documentation of the visit was discussed with the patient/authorized hr representative; all questions welcomed and answered. Patient/authorized hr representative agreed to proceed CC: Outpatient follow-up and safety monitoring of previously prescribed psychiatric medication, psychotherapy or other treatment HPI: Patient is a 39-year-old female with a history of anxiety and depression presenting for follow-up. The patient reports a significant decrease in appetite over the past few weeks, leading to noticeable weight loss. She attributes this to back pain and headaches, which also cause nausea. She attempts to consume at least 300 calories with Latuda but struggles to meet this goal. She tries to eat small amounts, such as carrots in the morning, and drinks a glass of milk with her medications. She has ordered puddings, yogurts, and applesauce to help maintain her intake. She experiences irritability, fatigue, and frequent crying spells, describing her mood as really down. She notes increased anxiety, particularly when leaving the house, and has had difficulty completing tasks such as grocery shopping. She reports a recent panic attack characterized by dyspnea, diaphoresis, and tremors, requiring assistance from her daughter to calm down. She is currently taking gabapentin 300 mg TID for nerve pain and anxiety and denies experiencing side effects or daytime sedation. She also uses diazepam as needed for anxiety. She reports that her back pain is severe enough to cause tears and affect her sleep. She manages the pain with gabapentin, ice packs, heating pads, and Tylenol. 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 Risks and benefits of the medication, including any black box warnings, were discussed with the patient. Interval Progress: Slightly worse PATIENT DATA: Generalized Anxiety Disorder Scale (ZAIRE-7) 07/23/2024 09/24/2024 11/19/2024 ZAIRE - 7 SCORES Score 11 11 12 (0-4) minimal anxiety, (5-9) mild anxiety, (10-14) moderate anxiety, (15-21) severe anxiety Patient Health Questionnaire (PHQ-9) 07/23/2024 09/24/2024 11/19/2024 PHQ-9 Score 8 8 8 (0-4) minimal depression, (5-9) mild depression, [...] with food. Take with atleast 300 calories. gabapentin (NEURONTIN) 300 mg capsule Take 1 capsule by mouth three times a day for 60 days. albuterol HFA (PROVENTIL HFA, VENTOLIN HFA) 90 mcg/actuation inhaler Inhale 2 Puffs as instructed every 4 hours as needed for wheezing/shortness of breath. dicyclomine (BENTYL) 10 mg capsule TAKE 1 CAPSULE THREE TIMES DAILY BEFORE MEALS No current facility-administered medications on file prior to visit. ROS: See HPI PFSH: See HPI VITAL SIGNS: VITAL SIGNS: There were no vitals filed for this visit. Last 3 Encounter BP Readings: Date: BP: 10/15/2024 128/76 02/29/2024 118/80 01/18/2024 126/62 Labwork: CBC and Differential: WBC Date Value Re (more content not included)... [facility] 11-19-2024 History of Presen t illness Narrative Images from the original note were not included. FOLLOW UP - PSYCHIATRIC PROGRESS NOTE Visit Type: Virtual Visit utilizing two-way audio [...] visit. Either the patient or their legal hr representative has been informed of the risks and benefits of -- and alternatives to -- treatment through a remote evaluation and consents to proceed with the evaluation remotely. Recording using [employer] software for draft documentation of the visit was discussed with the patient/authorized hr representative; all questions welcomed and answered. Patient/authorized hr representative agreed to proceed CC: Outpatient follow-up and safety monitoring of previously prescribed psychiatric medication, psychotherapy or other treatment HPI: Patient is a 39-year-old female with a history of anxiety and depression presenting for follow-up. The patient reports a significant decrease in appetite over the past few weeks, leading to noticeable weight loss. She attributes this to back pain and headaches, which also cause nausea. She attempts to consume at least 300 calories with Latuda but struggles to meet this goal. She tries to eat small amounts, such as carrots in the morning, and drinks a glass of milk with her medications. She has ordered puddings, yogurts, and applesauce to help maintain her intake. She experiences irritability, fatigue, and frequent crying spells, describing her mood as really down. She notes increased anxiety, particularly when leaving the house, and has had difficulty completing tasks such as grocery shopping. She reports a recent panic attack characterized by dyspnea, diaphoresis, and tremors, requiring assistance from her daughter to calm down. She is currently taking gabapentin 300 mg TID for nerve pain and anxiety and denies experiencing side effects or daytime sedation. She also uses diazepam as needed for anxiety. She reports that her back pain is severe enough to cause tears and affect her sleep. She manages the pain with gabapentin, ice packs, heating pads, and Tylenol. 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 Risks and benefits of the medication, including any black box warnings, were discussed with the patient. Interval Progress: Slightly worse PATIENT DATA: Generalized Anxiety Disorder Scale (ZAIRE-7) 07/23/2024 09/24/2024 11/19/2024 ZAIRE - 7 SCORES Score 11 11 12 (0-4) minimal anxiety, (5-9) mild anxiety, (10-14) moderate anxiety, (15-21) severe anxiety Patient Health Questionnaire (PHQ-9) 07/23/2024 09/24/2024 11/19/2024 PHQ-9 Score 8 8 8 (0-4) minimal depression, (5-9) mild depression, [...] with food. Take with atleast 300 calories. gabapentin (NEURONTIN) 300 mg capsule Take 1 capsule by mouth three times a day for 60 days. albuterol HFA (PROVENTIL HFA, VENTOLIN HFA) 90 mcg/actuation inhaler Inhale 2 Puffs as instructed every 4 hours as needed for wheezing/shortness of breath. dicyclomine (BENTYL) 10 mg capsule TAKE 1 CAPSULE THREE TIMES DAILY BEFORE MEALS No current facility-administered medications on file prior to visit. ROS: See HPI PFSH: See HPI VITAL SIGNS: VITAL SIGNS: There were no vitals filed for this visit. Last 3 Encounter BP Readings: Date: BP: 10/15/2024 128/76 02/29/2024 118/80 01/18/2024 126/62 Labwork: CBC and Differential: WBC Date Value Ref Range Status 11/24/2023 10.48 3.70 - 11.00 k/uL Final RBC Date Value Ref Range Status 11/24/2023 5.33 (H) 3.90 - 5.20 m/uL Final Hematocrit Date Value Ref Range Status 11/24/2023 48.7 (H) 36.0 - 46.0 % Final MCV Date Value Ref Range Status 11/24/2023 91.4 80.0 - 100.0 fL Final MCH Date Value Ref Range Status 11/24/2023 30.2 26.0 - 34.0 pg Final MCHC Date Value Ref Range Status 11/24/2023 33.1 30.5 - 36.0 g/dL Final Platelet Count Date Value Ref Range Status 11/24/2023 190 150 - 400 k/uL Final MPV Date Value Ref Range Status 11/24/2023 12.0 9.0 - 12.7 fL Final Comprehensive Metabolic Panel: BUN Date Value Ref Range Status 08/15/2024 12 7 - 21 mg/dL Final Creatinine Date Value Ref Range Status 08/15/2024 0.84 0.58 - 0.96 mg/dL Final Sodium Date Value Ref Range Status 08/15/2024 138 136 - 144 mmol/L Final Potassium Date Value Ref Range Status 08/15/2024 4.0 3.7 - 5.1 mmol/L Final CO2 Date Value Ref Range Status 08/15/2024 21 (L) 22 - 30 mmol/L Final Albumin Date Value Ref Range Status 08/15/2024 4.3 3.9 - 4.9 g/dL Final ALT Date Value Ref Range Status 08/15/2024 26 7 - 38 U/L Final AST Date Value Ref Range Status 08/15/2024 19 13 - 35 U/L Final Gamma-Glutamyltransferase (GGT), Serum: No results found for: GGT Vitamin B12: No components found for: [id number] Vitamin D, Total: No results found for: VITD Thyroid Stimulating Hormone (TSH): TSH Date Value Ref Range Status 10/13/2023 1.490 0.270 - 4.200 mIU/L Final Comment: If the patient is , TSH reference range varies by gestational period: First Trimester (weeks 9-12): 0.180-2.990 mIU/L Second Trimester: 0.110-3.980 mIU/L Third Trimester: 0.480-4.710 mIU/L Jose Faulkner et al. A Practical Approach for the Verifications and Determination of Site- and Trimester-Specific Reference Intervals for Thyroid Function tests in . Thyroid, 2019:29:3:412-420. Jasmeet Tyler et al. 2017 Guidelines of the [place] [employer] for the Diagnosis and Management of Thyroid Disease during and the . Thyroid, 2017:27:3:315-389. Hemoglobin A1C: No results found for: HGBA1C Lipid Panel: Cholesterol, Total Date Value Ref Range Status 08/15/2024 176 <200 mg/dL Final Comment: <200 mg/dL, Desirable 200-239 mg/dL, Borderline high >239 mg/dL, High HDL Cholesterol Date Value Ref Range Status 08/15/2024 28 (L) >39 mg/dL Final Comment: 40-59 mg/dL, Acceptable >59 mg/dL, High: Negative risk factor for coronary heart disease <40 mg/dL, Low: Positive risk factor for coronary heart disease LDL Cholesterol, Calculated Date Value Ref Range Status 08/15/2024 87 <100 mg/dL Final Comment: <100 mg/dL, Optimal 100-129 mg/dL, Near optimal/above optimal 130-159 mg/dL, Borderline high 160-189 mg/dL, High >189 mg/dL, Very high Secondary prevention optimal LDL Cholesterol levels are recommended to be < 70 mg/dL MENTAL STATUS EXAM: Appearance: Well dressed, well groomed Behavior: Behaves appropriately during the encounter Social relatedness: Euthymic Speech/Language: The patient demonstrates appropriate tone, prosody, yamileth, phonetics, and syntax Mood: euthymic Affect: Full and appropriate to topic Orientation: Person, Place, Time and Situation Associations: Intact and linear Hallucinations: None Delusions: None Suicidal Ideation: No suicidal ideation, intent or plan. Homicidal Ideation: No homicidal ideation, intent or plan. Insight: Appropriate Judgment: Appropriate DATA REVIEWED: Psychiatric scales, Electronic medical record, lab results and The PDMP report was reviewed and found to be appropriate without any signs of misuse or diversion. DIAGNOSIS: [place]aire (generalized anxiety disorder) Bipolar 2 disorder (hcc) (primary encounter diagnosis) Decreased appetite Headaches Nausea Irritability Encounter for long-term (current) use of medications GAF: -60-51 Moderate symptoms or moderate difficulty in social, occupational or school functioning. TREATMENT PLAN: 1. 1. ZAIRE (generalized anxiety disorder) (F41.1) Increased anxiety symptoms, including panic attacks and difficulty in public spaces. Currently using diazepam as needed. - Increase gabapentin to 400 mg TID to address anxiety and nerve pain. - Refill diazepam prescription; instructed patient to use as needed. 2. Bipolar 2 disorder (HCC) (F31.81) Symptoms of depression, irritability, and crying spells. Currently on Latuda, but decreased appetite may be affecting its efficacy. - Emphasized importance of consuming at least 300 calories with Latuda to ensure efficacy. - Discussed potential side effects of alternative medications and risks to cholesterol and liver enzymes. - Scheduled follow-up in two months to reassess symptoms and medication efficacy. 3. Decreased appetite (R63.0) Recent onset of decreased appetite, possibly related to back pain and nausea. Difficulty consuming 300 calories with Latuda. - Recommended meal replacement shakes like Boost or Ensure. - Advised incorporating yogurt-based smoothies for additional nutrition. - Monitor appetite and consult primary care provider if no improvement within a week. 4. Headaches (R51.9) Frequent headaches accompanied by nausea. - Monitor headache frequency and severity. 5. Nausea (R11.0) Associated with headaches and decreased appetite. - Monitor symptoms; increase in gabapentin may help alleviate nausea. 6. Irritability (R45.4) Increased irritability, possibly related to back pain and inadequate Latuda absorption due to decreased appetite. - Address underlying causes by managing back pain and ensuring adequate caloric intake with Latuda. 7. Encounter for long-term (current) use of medications (Z79.899) Currently on Latuda, gabapentin, and diazepam. Adherence to medication regimen is crucial for symptom management. - Increase gabapentin to 400 mg TID. - Refill diazepam prescription. - Emphasized importance of consuming 300 calories with Latuda. - Postponed lab work until consistent eating and hydration are achieved. MEDICATION CHANGES: Prescriptions given Patient denies any involuntary movement related side effects. See above Risks and benefits of the medication, including any black box warnings, were discussed with the patient. Patient is aware to reach out with any questions, concerns, or worsening of symptoms prior to the next appointment. Patient educated on risks of substance use in combination with medications and advised that any substance use along with medications may alter their effectiveness. Follow Up: 2 months as scheduled. Medical Decision Making: Problems: Moderate: 1+ chronic illnesses with change and 2+ stable chronic illnesses Data: Unique source(s) for external note(s) reviewed: 3+ Risk: Moderate: Moderate risk from testing/treatment and Drug management Medical Decision Making Level: 4 - Moderate ADD ON PSYCHOTHERAPY CODE : No SIGNATURE: Kinsey Levine APRN.CNP PATIENT NAME: Kristel Chilel DATE: November 19, 2024 TIME: 10:45 AM documented in this encounter [facility] 10-30-2024 Note HNO ID: [id number] Author: ?, ?, ? Service: ? Author Type: ? Type: Progress Notes Filed: 10/30/2024 13:17 Note Text: POPULATION HEALTH NAVIGATION OUTREACH Action/FYI Patient outreach for hcc gaps ;AWV. Mychart message sent to close gaps. Reason for Outreach Care Gap/HCC or Scheduling Wellness Visits Care Gaps due: Medicare Annual Wellness Visit Patient Contacted: Unable or unnecessary to reach patient: [employer] message sent Navigation Signature: Coby Bar October 30, 2024 1:16 PM [facility] 10-30-2024 History of Presen t illness Narrative POPULATION HEALTH NAVIGATION OUTREACH Action/FYI Patient outreach for hcc gaps ;AWV. Mychart message sent to close gaps. Reason for Outreach Care Gap/HCC or Scheduling Wellness Visits Care Gaps due: Medicare Annual Wellness Visit Patient Contacted: Unable or unnecessary to reach patient: [employer] message sent Navigation Signature: Coby Bar October 30, 2024 1:16 PM documented in this encounter [facility] 10-30-2024 Note Patient Outreach (PAPI OREILLYAV) KRISTEL CHILEL ([id number]) 1985 F CHT Date Time Provider Department 10/30/24 GUILLE CONDE During your visit today, we recorded the following information about you: Coby Tan 10/30/2024 1:17 PM Signed POPULATION HEALTH NAVIGATION OUTREACH Action/FYI Patient outreach for hcc gaps ;AWV. [employer] message sent to close gaps. Reason for Outreach Care Gap/HCC or Scheduling Wellness Visits Care Gaps due: Medicare Annual Wellness Visit Patient Contacted: Unable or unnecessary to reach patient: [employer] message sent Navigation Signature: Coby Bar October 30, 2024 1:16 PM Allergies As of Date: 10/30/2024 Noted Allergy Reaction CATS 01/27/2009 Comments: SNEEZING,WATERY EYES DOG HAIR 01/27/2009 10 - Anaphylaxis Comments: SNEEZING, WATERY EYES SULFA (SULFONAMIDE ANTIBIOTICS) 06/03/2009 4 - Hives Date Reviewed: 10/15/2024 Reviewed by: Pattie Chavez MA - Fully Assessed Reason for Visit: Population Health Navigation Outreach [3910] Cmt: Nik Harkins Prescriptions as of 10/30/2024 - lurasidone (LATUDA) 40 mg tablet Take 1 tablet by mouth daily with food. Take with atleast 300 calories. - gabapentin (NEURONTIN) 300 mg capsule Take 1 capsule by mouth three times a day for 60 days. - albuterol HFA (PROVENTIL HFA, VENTOLIN HFA) 90 mcg/actuation inhaler Inhale 2 Puffs as instructed every 4 hours as needed for wheezing/shortness of breath. - dicyclomine (BENTYL) 10 mg capsule TAKE 1 CAPSULE THREE TIMES DAILY BEFORE MEALS Problem List As Of Date 10/30/2024 Noted Resolved Tobacco use disorder [F17.200] 08/06/2008 06/06/2012 Galactorrhea not Associated with Childbirth [N6*11/29/2008 10/10/2009 Mastodynia [N64.4] 11/29/2008 10/10/2009 Poor Grth-Antepart [O36.5990] 08/20/2009 10/10/2009 DEPRESSION [F32.89] 10/28/2009 06/06/2012 Routine general medical examination at [facility]*02/19/2010 06/06/2012 Class: Chronic Routine gynecological examination [Z01.419] [...] disorder (HCC) [F31.81] 04/27/2021 Encounter Status:Closed by COBY TAN on 10/30/24 [facility] 10-15-2024 Note SARS-COV-2 (AGENT OF COVID-19) RNA: Not detected INFLUENZA A RNA: Not detected INFLUENZA B RNA: Not detected RESPIRATORY SYNCYTIAL VIRUS (RSV) RNA: Not detected [facility] Comment on above: Performed By: #### 9 [id number] ####[facility] LABCLIA [id number] [address] 10-15-2024 Note Addended by: MIKO BILYL on: 10/15/2024 07:11 PM Modules accepted: Orders [facility] 10-15-2024 Miscellaneous Notes Addended by: MIKO CHICAS on: 10/15/2024 07:11 PM Modules accepted: Orders documented in this encounter [facility] 10-15-2024 Note HNO ID: [id number] Author: MIKO CHICAS MD Service: ? Author Type: Physician Type: Progress Notes Filed: 10/15/2024 17:19 Note Text: [facility] Subjective Kristel Chilel is a 39 year old female. Patient presents with: Headache: bodyaches, nausea and vomiting x 1 day Patient began feeling sick yesterday. She has had bodyaches, headache, sore throat, nausea, vomiting, fatigue, clogged ears. She has had little cough and nasal congestion. Denies diarrhea, shortness of breath, or wheezing. She has used cold medicine and acetaminophen for her symptoms. Her daughter is sick also; her daughter was exposed to COVID. Review of Systems Objective BP 128/76 Pulse 88 Temp 37.4 ?C (99.4 ?F) Resp 16 Wt 79.4 kg (175 lb 0.7 oz) LMP 04/30/2015 (Approximate) SpO2 99% BMI 33.07 kg/m? Physical Exam Constitutional: General: She is not in acute distress. Appearance: She is ill-appearing. HENT: Right Ear: Tympanic membrane and ear canal normal. Left Ear: Tympanic membrane and ear canal normal. Nose: Congestion present. Right Sinus: Maxillary sinus tenderness and frontal sinus tenderness present. Left Sinus: Maxillary sinus tenderness and frontal sinus tenderness present. Mouth/Throat: Mouth: Mucous membranes are moist. Pharynx: Posterior oropharyngeal erythema present. No oropharyngeal exudate. Eyes: Extraocular Movements: Extraocular movements intact. Conjunctiva/sclera: Conjunctivae normal. Pupils: Pupils are equal, round, and reactive to light. Cardiovascular: Rate and Rhythm: Normal rate and regular rhythm. Heart sounds: No murmur heard. Pulmonary: Effort: No respiratory distress. Breath sounds: No wheezing, rhonchi or rales. Musculoskeletal: Cervical back: Neck supple. Lymphadenopathy: Cervical: No cervical adenopathy. Neurological: Mental Status: She is alert. {ASSESSMENT/PLAN: 1. URI, acute - ICD9: 465.9, ICD10: J06.9 - suspect viral URI, possible COVID. - Supportive care treatment with rest, cold medicine, and analgesia. - Viral URI contagiousness recommendations: avoid exposure to others until fever free for 24 hours without fever reducing medication. An additional 5 days of limiting contact can include covering coughs/masking, social distance, and hand hygiene. Miko Chicas MD Differential Diagnoses - Viral URI, possible COVID is more likely for the following reason(s): suggested by HANDP Procedures [facility] 10-15-2024 History of Presen t illness Narrative [facility] Subjective Kristel Chilel is a 39 year old female. Patient presents with: Headache: bodyaches, nausea and vomiting x 1 day Patient began feeling sick yesterday. She has had bodyaches, headache, sore throat, nausea, vomiting, fatigue, clogged ears. She has had little cough and nasal congestion. Denies diarrhea, shortness of breath, or wheezing. She has used cold medicine and acetaminophen for her symptoms. Her daughter is sick also; her daughter was exposed to COVID. Review of Systems Objective BP 128/76 Pulse 88 Temp 37.4 C (99.4 F) Resp 16 Wt 79.4 kg (175 lb 0.7 oz) LMP 04/30/2015 (Approximate) SpO2 99% BMI 33.07 kg/m Physical Exam Constitutional: General: She is not in acute distress. Appearance: She is ill-appearing. HENT: Right Ear: Tympanic membrane and ear canal normal. Left Ear: Tympanic membrane and ear canal normal. Nose: Congestion present. Right Sinus: Maxillary sinus tenderness and frontal sinus tenderness present. Left Sinus: Maxillary sinus tenderness and frontal sinus tenderness present. Mouth/Throat: Mouth: Mucous membranes are moist. Pharynx: Posterior oropharyngeal erythema present. No oropharyngeal exudate. Eyes: Extraocular Movements: Extraocular movements intact. Conjunctiva/sclera: Conjunctivae normal. Pupils: Pupils are equal, round, and reactive to light. Cardiovascular: Rate and Rhythm: Normal rate and regular rhythm. Heart sounds: No murmur heard. Pulmonary: Effort: No respiratory distress. Breath sounds: No wheezing, rhonchi or rales. Musculoskeletal: Cervical back: Neck supple. Lymphadenopathy: Cervical: No cervical adenopathy. Neurological: Mental Status: She is alert. {ASSESSMENT/PLAN: 1. URI, acute - ICD9: 465.9, ICD10: J06.9 - suspect viral URI, possible COVID. - Supportive care treatment with rest, cold medicine, and analgesia. - Viral URI contagiousness recommendations: avoid exposure to others until fever free for 24 hours without fever reducing medication. An additional 5 days of limiting contact can include covering coughs/masking, social distance, and hand hygiene. Miko Chicas MD Differential Diagnoses - Viral URI, possible COVID is more likely for the following reason(s): suggested by H&P Procedures documented in this encounter [facility] 09-24-2024 Instructions Kinsey Levine APRN.RETURNED CASE INSPECTOR - 09/24/2024 11:04 AM EDT TREATMENT PLAN: Continue Gabapentin 300 mg three times daily to manage anxiety and pain symptoms. Continue Latuda 40 mg every evening with dinner to address mood disorder. Utilize Diazepam to manage severe episode of panic and physical symptoms of anxiety. Reviewed lab work and will order more monitoring lab work in the future. Continue to work on exposing self to riding and driving a car. Work on eating more consistently throughout the day. Follow up on November 19 as scheduled. For those experiencing a suicidal crisis: --call the National Suicide Prevention Lifeline at 988 (621-309-8228) --text the Crisis Text Line (text HOME to 505262) --call 911 and let them know you are having a mental health crisis or go to your nearest Emergency Room for stabilization. --You can also call Mobile Crisis at [phone]. -- You may call the department appointment line at [phone] to schedule your appointment. -- Please call my nurse at [phone] or send me a message in [employer] with any questions or concerns between appointments. documented in this encounter [facility] 09-24-2024 Note HNO ID: [id number] Author: KINSEY LEVINE APRN.RETURNED CASE INSPECTOR Service: ? Author Type: Nurse Practitioner Type: Progress Notes Filed: 09/24/2024 11:04 Note Text: FOLLOW UP - PSYCHIATRIC PROGRESS NOTE PATIENT: Kristel Chilel DATE: September 24, 2024 Visit Type: Virtual Visit utilizing two-way [...] visit. Either the patient or their legal hr representative has been informed of the risks [...] HPI: Treatment Plan from Last Visit on 07/23/2024: TREATMENT PLAN: Increase Gabapentin to 300 mg three times daily to address pain and anxiety symptoms. Continue Latuda at 40 mg to address mood disorder. Take with 300 calories. Utilize Diazepam as needed to manage breakthrough episodes of anxiety. Complete fasting monitoring lab work for monitoring prior to the next appointment. Continue to utilize coping skills and exposure to anxiety provoking situations such as driving. Follow up in 2 months or sooner if needed. Today Kristel shares that she has still been getting a little more anxious than before with driving. Has been working on exposure with driving and riding in the car with her daughter. Has tolerated the increase in Gabapentin. It has helped with pain and anxiety. Also uses tylenol and heating pad to manage the pain. Noticed some fatigue but unsure if Gabapentin is the only contributor. She is not having nightmares. Sleeping through the night and if she wakes up, she is able to go back to sleep. Has used Diazepam about 4 to 5 times in the past 2 months. She has used it when she has to go out and do things that are out of her comfort zone. It helps her with the physical symptoms of anxiety. Still experiences sweating when she is anxious. She shares that her appetite has been lower. She knows to eat 300 calories with Latuda. Discussed eating consistently and incorporating more protein in her diet. Interval Progress: Slightly improved PATIENT DATA: Generalized Anxiety Disorder Scale (ZAIRE-7) 05/10/2024 07/23/2024 09/24/2024 ZAIRE - 7 SCORES Score 11 11 11 (0-4) minimal anxiety, (5-9) mild anxiety, (10-14) moderate anxiety, (15-21) severe anxiety Patient Health Questionnaire (PHQ-9) 05/10/2024 07/23/2024 09/24/2024 PHQ-9 Score 9 8 8 (0-4) minimal depression, (5-9) mild depression, [...] three times a day for 60 days. lurasidone (LATUDA) 40 mg tablet Take 1 tablet by mouth daily with food. Take with atleast 300 calories. albuterol HFA (PROVENTIL HFA, VENTOLIN HFA) 90 mcg/actuation inhaler Inhale 2 Puffs as instructed every 4 hours as needed for wheezing/shortness of breath. dicyclomine (BENTYL) 10 mg capsule TAKE 1 CAPSULE THREE TIMES DAILY BEFORE MEALS No current facility-administered medications on file prior to visit. ROS: See HPI PFSH: See HPI VITAL SIGNS: There were no vitals filed for this visit. Last 3 Encounter BP Readings: Date: BP: 02/29/2024 118/80 01/18/2024 126/62 11/24/2023 100/76 MENTAL STATUS EXAMINATION: Appearance: Casually dressed and groomed. Behavior: Behaves appropriately during the encounter Social relatedness: Euthymic Speech/Language: The patient d (more content not included)... [facility] 09-24-2024 History of Presen t illness Narrative Images from the original note were not included. FOLLOW UP - PSYCHIATRIC PROGRESS NOTE PATIENT: Kristel Chilel DATE: September 24, 2024 Visit Type: Virtual Visit utilizing two-way [...] visit. Either the patient or their legal hr representative has been informed of the risks [...] HPI: Treatment Plan from Last Visit on 07/23/2024: TREATMENT PLAN: Increase Gabapentin to 300 mg three times daily to address pain and anxiety symptoms. Continue Latuda at 40 mg to address mood disorder. Take with 300 calories. Utilize Diazepam as needed to manage breakthrough episodes of anxiety. Complete fasting monitoring lab work for monitoring prior to the next appointment. Continue to utilize coping skills and exposure to anxiety provoking situations such as driving. Follow up in 2 months or sooner if needed. Today Kristel shares that she has still been getting a little more anxious than before with driving. Has been working on exposure with driving and riding in the car with her daughter. Has tolerated the increase in Gabapentin. It has helped with pain and anxiety. Also uses tylenol and heating pad to manage the pain. Noticed some fatigue but unsure if Gabapentin is the only contributor. She is not having nightmares. Sleeping through the night and if she wakes up, she is able to go back to sleep. Has used Diazepam about 4 to 5 times in the past 2 months. She has used it when she has to go out and do things that are out of her comfort zone. It helps her with the physical symptoms of anxiety. Still experiences sweating when she is anxious. She shares that her appetite has been lower. She knows to eat 300 calories with Latuda. Discussed eating consistently and incorporating more protein in her diet. Interval Progress: Slightly improved PATIENT DATA: Generalized Anxiety Disorder Scale (ZAIRE-7) 05/10/2024 07/23/2024 09/24/2024 ZAIRE - 7 SCORES Score 11 11 11 (0-4) minimal anxiety, (5-9) mild anxiety, (10-14) moderate anxiety, (15-21) severe anxiety Patient Health Questionnaire (PHQ-9) 05/10/2024 07/23/2024 09/24/2024 PHQ-9 Score 9 8 8 (0-4) minimal depression, (5-9) mild depression, (10-14) moderate depression, (15-19) moderately severe depression, (20-27) severe depression PAST MEDICAL HISTORY Diagnosis Date Abnormal glandular Papanicolaou smear of cervix 2001 Abn. Pap smear (cervix),ASCUS Anxiety Bulging disc L5 Chlamydia 2002 Galactorrhea not associated with childbirth Goiter 03/04/2015 [...] three times a day for 60 days. lurasidone (LATUDA) 40 mg tablet Take 1 tablet by mouth daily with food. Take with atleast 300 calories. albuterol HFA (PROVENTIL HFA, VENTOLIN HFA) 90 mcg/actuation inhaler Inhale 2 Puffs as instructed every 4 hours as needed for wheezing/shortness of breath. dicyclomine (BENTYL) 10 mg capsule TAKE 1 CAPSULE THREE TIMES DAILY BEFORE MEALS No current facility-administered medications on file prior to visit. ROS: See HPI PFSH: See HPI VITAL SIGNS: There were no vitals filed for this visit. Last 3 Encounter BP Readings: Date: BP: 02/29/2024 118/80 01/18/2024 126/62 11/24/2023 100/76 MENTAL STATUS EXAMINATION: Appearance: Casually dressed and groomed. Behavior: Behaves appropriately during the encounter Social relatedness: Euthymic Speech/Language: The patient demonstrates appropriate tone, prosody, yamileth, phonetics, and syntax Mood: euthymic Affect: Full and appropriate to topic Orientation: Person, Place, Time and Situation Associations: Intact and linear Hallucinations: None Delusions: None Suicidal Ideation: No suicidal ideation, intent or plan. Homicidal Ideation: No homicidal ideation, intent or plan. Insight: Appropriate Judgment: Appropriate DATA REVIEWED: Psychiatric scales, Electronic medical record, Labs, and The PDMP report was reviewed and found to be appropriate without any signs of misuse or diversion. DIAGNOSIS: [place] (generalized anxiety disorder) Bipolar 2 disorder (hcc) (primary encounter diagnosis) Metabolic syndrome Elevated lipids Encounter for long-term (current) use of medications GAF: -70-61 Some mild symptoms or some difficulty in social, occupational, or school functioning, but generally functioning pretty well. TREATMENT PLAN: Continue Gabapentin 300 mg three times daily to manage anxiety and pain symptoms. Continue Latuda 40 mg every evening with dinner to address mood disorder. Utilize Diazepam to manage severe episode of panic and physical symptoms of anxiety. Reviewed lab work and will order more monitoring lab work in the future. Continue to work on exposing self to riding and driving a car. Work on eating more consistently throughout the day. Follow up on November 19 as scheduled. MEDICATION CHANGES: Current medication regimen unchanged. Prescriptions given Patient denies any involuntary movement related side effects. Risks and benefits of the medication, including any black box warnings, were discussed with the patient. Patient is aware to reach out with any questions, concerns, or worsening of symptoms prior to the next appointment. Patient educated on risks of substance use in combination with medications and advised that any substance use along with medications may alter their effectiveness. Follow Up: See Treatment Plan Medical Decision Making: Problems: Moderate: 2+ stable chronic illnesses and 1+ chronic illnesses with change Data: Unique source(s) for external note(s) reviewed: 3+ Unique test result(s) reviewed: 3+ Independent interpretation of test from other physician/QHCP Risk: Moderate: Moderate risk from testing/treatment and Drug management Medical Decision Making Level: 4 - Moderate ADD ON PSYCHOTHERAPY CODE : No SIGNATURE: Kinsey Levine APRN.CNP PATIENT NAME: Kristel Chilel DATE: September 24, 2024 TIME: 10:32 AM documented in this encounter [facility] 08-31-2024 Note HNO ID: [id number] Author: CHIDI BRICEÑO MA Service: ? Author Type: Functional Tester Typewriters Type: Progress Notes Filed: 08/31/2024 11:40 Note Text: POPULATION HEALTH NAVIGATION OUTREACH Action/FYI msg to schedule wellness, follow up, influenza Reason for Outreach Care Gap/HCC or Scheduling Wellness Visits Care Gaps due: Medicare Annual Wellness Visit Follow-up Appointment Flu Vaccine Patient Contacted: Unable or unnecessary to reach patient: Unable to leave message [employer] message sent Navigation Signature: Chidi Briceño MA August 31, 2024 11:39 AM [facility] 08-31-2024 History of Presen t illness Narrative POPULATION HEALTH NAVIGATION OUTREACH Action/FYI msg to schedule wellness, follow up, influenza Reason for Outreach Care Gap/HCC or Scheduling Wellness Visits Care Gaps due: Medicare Annual Wellness Visit Follow-up Appointment Flu Vaccine Patient Contacted: Unable or unnecessary to reach patient: Unable to leave message [employer] message sent Navigation Signature: Chidi Briceño MA August 31, 2024 11:39 AM documented in this encounter [facility] 08-31-2024 Note Patient Outreach (PAPI FAN) KRISTEL CHILEL ([id number]) 1985 F CHT Date Time Provider Department 08/31/24 CHIDI BRICEÑO During your visit today, we recorded the following information about you: Chidi Briceño MA 08/31/2024 11:40 AM Signed POPULATION HEALTH NAVIGATION OUTREACH Action/FYI msg to schedule wellness, follow up, influenza Reason for Outreach Care Gap/HCC or Scheduling Wellness Visits Care Gaps due: Medicare Annual Wellness Visit Follow-up Appointment Flu Vaccine Patient Contacted: Unable or unnecessary to reach patient: Unable to leave message [employer] message sent Navigation Signature: Chidi Briceño MA August 31, 2024 11:39 AM Allergies As of Date: 08/31/2024 Noted Allergy Reaction CATS 01/27/2009 Comments: SNEEZING,WATERY EYES DOG HAIR 01/27/2009 10 - Anaphylaxis Comments: SNEEZING, WATERY EYES SULFA (SULFONAMIDE ANTIBIOTICS) 06/03/2009 4 - Hives Date Reviewed: 07/23/2024 Reviewed by: Lainey Jeffries LPN - Fully Assessed Reason for Visit: Population Health Navigation Outreach [3910] Cmt: nik yusuf bryant Prescriptions as of 08/31/2024 - gabapentin (NEURONTIN) 300 mg capsule Take 1 capsule by mouth three times a day for 60 days. - lurasidone (LATUDA) 40 mg tablet Take 1 tablet by mouth daily with food. Take with atleast 300 calories. - albuterol HFA (PROVENTIL HFA, VENTOLIN HFA) 90 mcg/actuation inhaler Inhale 2 Puffs as instructed every 4 hours as needed for wheezing/shortness of breath. 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] 08/20/2009 10/10/2009 DEPRESSION [F32.89] 10/28/2009 06/06/2012 Routine general medical examination at [facility]*02/19/2010 06/06/2012 Class: Chronic Routine gynecological examination [Z01.419] [...] disorder (HCC) [F31.81] 04/27/2021 Encounter Status:Closed by CHIDI BRICEÑO on 08/31/24 [facility] 08-23-2024 Discharge summary [facility] 08-23-2024 Radiology Diagnostic study note [facility] Imaging Services [address] [place] [address] [id number] Chest PA and Lateral MR#: [id number] Acct: [id number] Name: KRISTEL CHILEL Rep #: [id number] : 1985 F 39 From: Elinor Chester MD PCP: Dr. Brent Conde MD Status: [facility] Study:Chest PA and Lateral Date of Exam: 08/23/24 Exam# [id number] Ordering Dr: Cassidy Garcia MD PROCEDURE: CHEST PA AND LATERAL REASON FOR EXAM: Cough. TECHNIQUE: Frontal and lateral views of the chest. COMPARISON: None. FINDINGS: Lungs: Lungs clear of pneumonia and congestion. Pleura: No pleural effusions, thickening, or pneumothorax. Heart: Normal in size and configuration. Mediastinum/[place]: Unremarkable. Great vessels: Unremarkable. Bones/soft tissues: Unremarkable. RAD/Chest PA and Lateral IMPRESSION: No active cardiopulmonary disease.. Reading Location: [place] [address] CC: Dr. Brent Conde MD; Dr. Kel Garcia MD ~ [place]: Signed [facility] 08-23-2024 Note HNO ID: [id number] Author: DREW SHAVER APRN.BARBARA Service: ? Author Type: Nurse Practitioner Type: Progress Notes Filed: 08/23/2024 09:16 Note Text: Patient came in with complaints of severe shortness of breath. Patient appears to be in distress with audible wheezing. Patient is in the tripod position. Patient is very uncomfortable. Offered to call the squad to go to the ER. Patient declined. Instructed mother to take patient to the ER right away. Patient was agreeable to this care plan. [facility] 08-23-2024 History of Present illness Narrative Patient came in with complaints of severe shortness of breath. Patient appears to be in distress with audible wheezing. Patient is in the tripod position. Patient is very uncomfortable. Offered to call the squad to go to the ER. Patient declined. Instructed mother to take patient to the ER right away. Patient was agreeable to this care plan. documented in this encounter [facility] 08-17-2024 Telephone encounter Note Call placed to patient with instructions to restart Gabapentin and Diazepam. Take half tab of Latuda for 4 days then increase to whole tab. Patient voices understanding. Lainey Jeffries LPN [facility] 08-17-2024 Miscellaneous Notes Call placed to patient with instructions to restart Gabapentin and Diazepam. Take half tab of Latuda for 4 days then increase to whole tab. Patient voices understanding. Lainey Jeffries LPN Please let the patient know that she can restart Gabapentin and Diazepam without any issues. She should take half a tablet of Latuda for 4 days and then increase it back to the full tablet. Patient reports she has been sick with the flu for about 1.5 weeks. States for about 1 week she has not taken her Gabapentin, her Latuda or any Diazepam because she was not able to keep anything down. Reports improving now and was planning on taking these medications today. Pt asking Kinsey if this is ok to restart them, as ordered, after not taking them for a week? Venessa Lou RN documented in this encounter [facility] 08-17-2024 Telephone encounter Note Call placed to patient notifying of lab results. With instructions to continue interventions recommended to last appointment. Patient voices understanding. Lainey Jeffries LPN [facility] 08-17-2024 Miscellaneous Notes Call placed to patient notifying of lab results. With instructions to continue interventions recommended to last appointment. Patient voices understanding. Lainey Jeffries LPN Reviewed patient's lab results. Please notify the patient that all her lab results have significantly improved compared to the previous time when they were completed. She should continue the interventions recommended at the last appointment. Pt phoned to discuss lab results. Reviewed lab results with patient. Pt asking provider to please advise. documented in this encounter [facility] 08-17-2024 Telephone encounter Note Reviewed patient's lab results. Please notify the patient that all her lab results have significantly improved compared to the previous time when they were completed. She should continue the interventions recommended at the last appointment. [facility] 08-16-2024 Telephone encounter Note Pt phoned to discuss lab results. Reviewed lab results with patient. Pt asking provider to please advise. [facility] 08-15-2024 Telephone encounter Note Please let the patient know that she can restart Gabapentin and Diazepam without any issues. She should take half a tablet of Latuda for 4 days and then increase it back to the full tablet. [facility] 08-15-2024 Telephone encounter Note Patient reports she has been sick with the flu for about 1.5 weeks. States for about 1 week she has not taken her Gabapentin, her Latuda or any Diazepam because she was not able to keep anything down. Reports improving now and was planning on taking these medications today. Pt asking Kinsey if this is ok to restart them, as ordered, after not taking them for a week? Venessa Lou RN [facility] 07-24-2024 Note HNO ID: [id number] Author: CHIDI BRICEÑO MA Service: ? Author Type: Functional Tester Typewriters Type: Progress Notes Filed: 07/24/2024 14:05 Note Text: POPULATION HEALTH NAVIGATION OUTREACH Action/FYI msg to schedule wellness, hcc gap closure, follow up, influenza Reason for Outreach Care Gap/HCC or Scheduling Wellness Visits Care Gaps due: Medicare Annual Wellness Visit Follow-up Appointment Flu Vaccine Patient Contacted: Unable or unnecessary to reach patient: Unable to leave message [employer] message sent HCC related Navigation Signature: Chidi Briceño MA July 24, 2024 2:04 PM [facility] 07-24-2024 History of Present illness Narrative POPULATION HEALTH NAVIGATION OUTREACH Action/FYI msg to schedule wellness, hcc gap closure, follow up, influenza Reason for Outreach Care Gap/HCC or Scheduling Wellness Visits Care Gaps due: Medicare Annual Wellness Visit Follow-up Appointment Flu Vaccine Patient Contacted: Unable or unnecessary to reach patient: Unable to leave message [employer] message sent HCC related Navigation Signature: Chidi Briceño MA July 24, 2024 2:04 PM documented in this encounter [facility] 07-24-2024 Note Patient Outreach (NE TNAV) KRISTEL CHILEL ([id number]) 1985 F T Date Time Provider Department 07/24/24 CHIDI BRICEÑO During your visit today, we recorded the following information about you: Chidi Briceño MA 07/24/2024 2:05 PM Signed POPULATION HEALTH NAVIGATION OUTREACH Action/FYI msg to schedule wellness, hcc gap closure, follow up, influenza Reason for Outreach Care Gap/HCC or Scheduling Wellness Visits Care Gaps due: Medicare Annual Wellness Visit Follow-up Appointment Flu Vaccine Patient Contacted: Unable or unnecessary to reach patient: Unable to leave message [employer] message sent [facility] related Navigation Signature: Chidi Briceño MA July 24, 2024 2:04 PM Allergies As of Date: 07/24/2024 Noted Allergy Reaction CATS 01/27/2009 Comments: SNEEZING,WATERY EYES DOG HAIR 01/27/2009 10 - Anaphylaxis Comments: SNEEZING, WATERY EYES SULFA (SULFONAMIDE ANTIBIOTICS) 06/03/2009 4 - Hives Date Reviewed: 07/23/2024 Reviewed by: Lainey Jeffries LPN - Fully Assessed Reason for Visit: Population Health Navigation Outreach [3910] [facility] Prescriptions as of 07/24/2024 - gabapentin (NEURONTIN) 300 mg capsule Take 1 capsule by mouth three times a day for 60 days. - lurasidone (LATUDA) 40 mg tablet Take 1 tablet by mouth daily with food. Take with atleast 300 calories. - diazePAM (VALIUM) 5 mg tablet Take 1 tablet by mouth once daily as needed for anxiety for up to 30 days. - albuterol HFA (PROVENTIL HFA, VENTOLIN HFA) 90 mcg/actuation inhaler Inhale 2 Puffs as instructed every 4 hours as needed for wheezing/shortness of breath. 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 Continue Latuda at 40 mg to address mood disorder. Take with 300 calories. Utilize Diazepam as needed to manage breakthrough episodes of anxiety. Complete fasting monitoring lab work for monitoring prior to the next appointment. Continue to utilize coping skills and exposure to anxiety provoking situations such as driving. Follow up in 2 months or sooner if needed. For those experiencing a suicidal crisis: --call the National Suicide Prevention Lifeline at 988 (148.457.9506) --text the Crisis Text Line (text HOME to 341141) --call 911 and let them know you are having a mental health crisis or go to your nearest Emergency Room for stabilization. --You can also call Mobile Crisis at [phone]. -- You may call the department appointment line at [phone] to schedule your appointment. -- Please call my nurse at [phone] or send me a message in [employer] with any questions or concerns between appointments. documented in this encounter [facility] 07-23-2024 Note HNO ID: [id number] Author: KINSEY LEVINE APRN.[facility] Service: ? Author Type: Nurse Practitioner Type: Progress Notes Filed: 07/23/2024 16:24 Note Text: FOLLOW UP - PSYCHIATRIC PROGRESS NOTE PATIENT: Kristel Chilel DATE: July 23, 2024 Visit Type: Virtual Visit utilizing two-way [...] visit. Either the patient or their legal hr representative has been informed of the risks [...] HPI: Treatment Plan from Last Visit on 05/14/2024: TREATMENT PLAN: Patient stopped taking the minipress for the last week and has not experienced any nightmares. Would like to discontinue use right now and she if she can manage without it. Continue Latuda at the same dose to help with mood symptoms. Taking it with 300 calories. Continue Gabapentin at the same dose to address anxiety and pain concerns. Utilize Diazepam as needed to manage severe episodes of anxiety. Did not request a refill at this time as she rarely uses it. Complete fasting monitoring lab work ordered. Follow up in 2 months or sooner if needed. Continue to work on gradually decreasing nicotine use. Okay to start incorporating a multivitamin. Today Kristel shares that I am hanging in there. She is making [place] for dinner. Has been focusing on eating more healthy. Shares that she is still concerned about her mood. Has been feeling more emotional. Crying a lot. Shares that she has been more irritable towards others. Denies any specific psychosocial stressors. Continues to take Latuda and 300 calories. She shares that she has been having more back pain. Has noticed some benefit from Gabapentin. Expressed a desire to increase the dose. Denies any side effects from Gabapentin and Latuda. She has noticed that she is leaning for the Diazepam more often recently. It was last refilled in October of 2023. Has also noticed that her anxiety has been higher. Continues to utilize coping skills to try to manage these symptoms. She shares, I should be happy as my Dad moved into town. Father is now 8 minutes away. Shares that she had a nightmares the other day. But it was not like the recurrent nightmare that she was experiencing before. Has not had severe nightmares and does not feel that she needs to restart the prazosin. Has been feeling more decrease in her moods. But encouraging herself to continuing driving on her own. Her nicotine use has increased to 1 pack per day in the last 2 weeks. Feels that when she is stressed, she uses nicotine more. Interval Progress: Slightly worse PATIENT DATA: Generalized Anxiety Disorder Scale (ZAIRE-7) 03/12/2024 05/10/2024 07/23/2024 ZAIRE - 7 SCORES Score 12 11 11 (0-4) minimal anxiety, (5-9) mild anxiety, (10-14) moderate anxiety, (15-21) severe anxiety Patient Health Questionnaire (PHQ-9) 03/12/2024 05/10/2024 07/23/2024 PHQ-9 Score 6 9 8 (0-4) minimal depression, (5-9) mild depression, [...] with food. Take with atleast 300 calories. gabapentin (NEURONTIN) 300 mg capsule Take 1 capsule by mouth two times a day for 60 days. albuterol HFA (PROVENTIL HFA, VENTOLIN HFA) 90 mcg/actuati (more content not included)... [facility] 07-23-2024 History of Present illness Narrative Images from the original note were not included. FOLLOW UP - PSYCHIATRIC PROGRESS NOTE PATIENT: Kristel Chilel DATE: July 23, 2024 Visit Type: Virtual Visit utilizing two-way [...] visit. Either the patient or their legal hr representative has been informed of the risks [...] HPI: Treatment Plan from Last Visit on 05/14/2024: TREATMENT PLAN: Patient stopped taking the minipress for the last week and has not experienced any nightmares. Would like to discontinue use right now and she if she can manage without it. Continue Latuda at the same dose to help with mood symptoms. Taking it with 300 calories. Continue Gabapentin at the same dose to address anxiety and pain concerns. Utilize Diazepam as needed to manage severe episodes of anxiety. Did not request a refill at this time as she rarely uses it. Complete fasting monitoring lab work ordered. Follow up in 2 months or sooner if needed. Continue to work on gradually decreasing nicotine use. Okay to start incorporating a multivitamin. Today Kristel shares that I am hanging in there. She is making [place] for dinner. Has been focusing on eating more healthy. Shares that she is still concerned about her mood. Has been feeling more emotional. Crying a lot. Shares that she has been more irritable towards others. Denies any specific psychosocial stressors. Continues to take Latuda and 300 calories. She shares that she has been having more back pain. Has noticed some benefit from Gabapentin. Expressed a desire to increase the dose. Denies any side effects from Gabapentin and Latuda. She has noticed that she is leaning for the Diazepam more often recently. It was last refilled in October of 2023. Has also noticed that her anxiety has been higher. Continues to utilize coping skills to try to manage these symptoms. She shares, I should be happy as my Dad moved into town. Father is now 8 minutes away. Shares that she had a nightmares the other day. But it was not like the recurrent nightmare that she was experiencing before. Has not had severe nightmares and does not feel that she needs to restart the prazosin. Has been feeling more decrease in her moods. But encouraging herself to continuing driving on her own. Her nicotine use has increased to 1 pack per day in the last 2 weeks. Feels that when she is stressed, she uses nicotine more. Interval Progress: Slightly worse PATIENT DATA: Generalized Anxiety Disorder Scale (ZAIRE-7) 03/12/2024 05/10/2024 07/23/2024 ZAIRE - 7 SCORES Score 12 11 11 (0-4) minimal anxiety, (5-9) mild anxiety, (10-14) moderate anxiety, (15-21) severe anxiety Patient Health Questionnaire (PHQ-9) 03/12/2024 05/10/2024 07/23/2024 PHQ-9 Score 6 9 8 (0-4) minimal depression, (5-9) mild depression, [...] 12 VAGINAL HYSTERECTOMY UTERUS 250 GM/< 06/19/15 [facility] ALLERGIES Allergen Reactions Cats SNEEZING,WATERY EYES Dog Hair Anaphylaxis SNEEZING, WATERY EYES Sulfa (Sulfonamide * Hives Current Outpatient Medications on File Prior to Visit Medication Sig lurasidone (LATUDA) 40 mg tablet Take 1 tablet by mouth daily with food. Take with atleast 300 calories. gabapentin (NEURONTIN) 300 mg capsule Take 1 capsule by mouth two times a day for 60 days. albuterol HFA (PROVENTIL HFA, VENTOLIN HFA) 90 mcg/actuation inhaler Inhale 2 Puffs as instructed every 4 hours as needed for wheezing/shortness of breath. dicyclomine (BENTYL) 10 mg capsule TAKE 1 CAPSULE THREE TIMES DAILY BEFORE MEALS No current facility-administered medications on file prior to visit. ROS: See HPI PFSH: See HPI VITAL SIGNS: There were no vitals filed for this visit. Last 3 Encounter BP Readings: Date: BP: 02/29/2024 118/80 01/18/2024 126/62 11/24/2023 100/76 MENTAL STATUS EXAMINATION: Appearance: Casually dressed, well groomed Behavior: Behaves appropriately during the encounter Social relatedness: Euthymic Speech/Language: The patient demonstrates appropriate tone, prosody, yamileth, phonetics, and syntax Mood: per patient irritable and sad Affect: Full and appropriate to topic Orientation: Person, Place, Time and Situation Associations: Intact and linear Hallucinations: None Delusions: None Suicidal Ideation: No suicidal ideation, intent or plan. Homicidal Ideation: No homicidal ideation, intent or plan. Insight: Appropriate Judgment: Appropriate DATA REVIEWED: Psychiatric scales, Electronic medical record, Labs, and The PDMP report was reviewed and found to be appropriate without any signs of misuse or diversion. DIAGNOSIS: [place] (generalized anxiety disorder) (primary encounter diagnosis) Bipolar 2 disorder (hcc) Encounter for long-term (current) use of medications Metabolic syndrome Elevated lipids Current nicotine use Irritability GAF: -60-51 Moderate symptoms or moderate difficulty in social, occupational or school functioning. TREATMENT PLAN: Increase Gabapentin to 300 mg three times daily to address pain and anxiety symptoms. Continue Latuda at 40 mg to address mood disorder. Take with 300 calories. Utilize Diazepam as needed to manage breakthrough episodes of anxiety. Complete fasting monitoring lab work for monitoring prior to the next appointment. Continue to utilize coping skills and exposure to anxiety provoking situations such as driving. Follow up in 2 months or sooner if needed. MEDICATION CHANGES: Prescriptions given See above. Patient denies any involuntary movement related side effects. Risks and benefits of the medication, including any black box warnings, were discussed with the patient. Patient is aware to reach out with any questions, concerns, or worsening of symptoms prior to the next appointment. Patient educated on risks of substance use in combination with medications and advised that any substance use along with medications may alter their effectiveness. Follow Up: See Treatment Plan Medical Decision Making: Problems: Moderate: 1+ chronic illnesses with change and 2+ stable chronic illnesses Data: Unique source(s) for external note(s) reviewed: 3+ Unique test result(s) reviewed: 3+ Unique test(s) ordered: 3+ Independent interpretation of test from other physician/QHCP Risk: Moderate: Moderate risk from testing/treatment and Drug management Medical Decision Making Level: 4 - Moderate ADD ON PSYCHOTHERAPY CODE : No SIGNATURE: Kinsey Levine APRN.CNP PATIENT NAME: Kristel Chilel DATE: July 23, 2024 TIME: 3:55 PM documented in this encounter [facility] 06-05-2024 Note HNO ID: [id number] Author: CHIDI BRICEÑO MA Service: ? Author Type: Functional Tester Typewriters Type: Progress Notes Filed: 06/05/2024 14:33 Note Text: POPULATION HEALTH NAVIGATION OUTREACH Action/FYI spoke to pt to schedule wellness, follow up, influenza- pt said that she will call back to schedule Reason for Outreach Care Gap/HCC or Scheduling Wellness Visits Care Gaps due: Medicare Annual Wellness Visit Follow-up Appointment Flu Vaccine Patient Contacted: Spoke to patient/parent/or legal guardian Patient identified by name and : Yes Care Gap/HCC/Scheduling Wellness actions taken: Patient declined: Patient requested call back from navigator/ will call navigator back Navigation Signature: Chidi Briceño MA June 05, 2024 2:32 PM [facility] 06-05-2024 History of Present illness Narrative POPULATION HEALTH NAVIGATION OUTREACH Action/FYI spoke to pt to schedule wellness, follow up, influenza- pt said that she will call back to schedule Reason for Outreach Care Gap/HCC or Scheduling Wellness Visits Care Gaps due: Medicare Annual Wellness Visit Follow-up Appointment Flu Vaccine Patient Contacted: Spoke to patient/parent/or legal guardian Patient identified by name and : Yes Care Gap/HCC/Scheduling Wellness actions taken: Patient declined: Patient requested call back from navigator/ will call navigator back Navigation Signature: Chidi Briceño MA June 05, 2024 2:32 PM documented in this encounter [facility] 06-05-2024 Note Patient Outreach (NE TNAV) KRISTEL CHILEL ([id number]) 1985 F T Date Time Provider Department 06/05/24 CHIDI BRICEÑO During your visit today, we recorded the following information about you: Chidi Briceño MA 06/05/2024 2:33 PM Signed POPULATION HEALTH NAVIGATION OUTREACH Action/FYI spoke to pt to schedule wellness, follow up, influenza- pt said that she will call back to schedule Reason for Outreach Care Gap/HCC or Scheduling Wellness Visits Care Gaps due: Medicare Annual Wellness Visit Follow-up Appointment Flu Vaccine Patient Contacted: Spoke to patient/parent/or legal guardian Patient identified by name and : Yes Care Gap/HCC/Scheduling Wellness actions taken: Patient declined: Patient requested call back from navigator/ will call navigator back Navigation Signature: Chidi Briceño MA June 05, 2024 2:32 PM Allergies As of Date: 06/05/2024 Noted Allergy Reaction CATS 01/27/2009 Comments: SNEEZING,WATERY EYES DOG HAIR 01/27/2009 10 - Anaphylaxis Comments: SNEEZING, WATERY EYES SULFA (SULFONAMIDE ANTIBIOTICS) 06/03/2009 4 - Hives Date Reviewed: 05/14/2024 Reviewed by: Lainey Jeffries LPN - Fully Assessed Reason for Visit: Population Health Navigation Outreach [3910] [facility] Prescriptions as of 06/05/2024 - lurasidone (LATUDA) 40 mg tablet Take 1 tablet by mouth daily with food. Take with atleast 300 calories. - gabapentin (NEURONTIN) 300 mg capsule Take 1 capsule by mouth two times a day for 60 days. - albuterol HFA (PROVENTIL HFA, VENTOLIN HFA) 90 mcg/actuation inhaler Inhale 2 Puffs as instructed every 4 hours as needed for wheezing/shortness of breath. - dicyclomine (BENTYL) 10 mg capsule TAKE 1 CAPSULE THREE TIMES DAILY BEFORE MEALS Problem List As Of Date 06/05/2024 Noted Resolved Tobacco use disorder [F17.200] 08/06/2008 06/06/2012 Galactorrhea not Associated with Childbirth [N6*11/29/2008 10/10/2009 Mastodynia [N64.4] 11/29/2008 10/10/2009 Poor Grth-Antepart [O36.5990] 08/20/2009 10/10/2009 DEPRESSION [F32.89] 10/28/2009 06/06/2012 Routine general medical examination at [facility]*02/19/2010 06/06/2012 Class: Chronic Routine gynecological examination [Z01.419] [...] disorder (HCC) [F31.81] 04/27/2021 Encounter Status:Closed by CHIDI BRICEÑO on 06/05/24 [facility] 05-14-2024 Instructions Kinsey Levine, AMBULATORY CARE COORDINATOR.[facility] - 05/14/2024 10:55 AM EST TREATMENT PLAN: Patient stopped taking the minipress for the last week and has not experienced any nightmares. Would like to discontinue use right now and she if she can manage without it. Continue Latuda at the same dose to help with mood symptoms. Taking it with 300 calories. Continue Gabapentin at the same dose to address anxiety and pain concerns. Utilize Diazepam as needed to manage severe episodes of anxiety. Did not request a refill at this time as she rarely uses it. Complete fasting monitoring lab work ordered. Follow up in 2 months or sooner if needed. Continue to work on gradually decreasing nicotine use. Okay to start incorporating a multivitamin. For those experiencing a suicidal crisis: --call the National Suicide Prevention Lifeline at 065 (362-083-1361) --text the Crisis Text Line (text HOME to 438159) --call 804 and let them know you are having a mental health crisis or go to your nearest Emergency Room for stabilization. --You can also call Mobile Crisis at [phone]. -- You may call the department appointment line at [phone] to schedule your appointment. -- Please call my nurse at [phone] or send me a message in [employer] with any questions or concerns between appointments. documented in this encounter [facility] 05-14-2024 Note HNO ID: [id number] Author: KINSEY LEVINE APRN.CNP Service: ? Author Type: Nurse Practitioner Type: Progress Notes Filed: 05/14/2024 10:56 Note Text: FOLLOW UP - PSYCHIATRIC PROGRESS NOTE PATIENT: Kristel Chilel DATE: May 14, 2024 Visit Type: Virtual Visit utilizing two-way [...] visit. Either the patient or their legal hr representative has been informed of the risks [...] HPI: Treatment Plan from Last Visit on 03/12/2024: TREATMENT PLAN: Repeat fasting monitoring lab work. Continue Gabapentin, Latuda, and Minipress at the same dose. Follow up with PCP consistently to gradually address physical health concerns. Continue engagement in coping skills to address anxiety symptoms. Today Kristel shares that that she had the surgery and removed the lump from behind her ear. The lump was non cancerous. The surgery went well and without complications. She has been asked to keep an eye if the lump re appears. Her anxiety was really high during the pre-op appointments. She focused on the ceiling and counting during the surgery and this helped with her anxiety. Overall had a really good experience and support from the healthcare team during the surgery. She is going to complete the fasting lab work. PCP is aware of elevated lipid levels and has reminded the patient to complete fasting lab work ordered. Patient plans on completing it after the holidays. Has a lot of health related anxiety and it is difficult for her to complete procedures like blood work. She has been consistent in taking the Latuda and Gabapentin. Concerned about her hair falling off. Her hair doesn't feel thin. Does not have any bald spots. Is monitoring this. Unsure if it is related to stress versus her medications. She has been eating consistently. Has lost weight and noticed some decrease in appetite. Continues to struggle with back pain, muscle pain. She is still getting headaches and light headedness. Is going to see a pain management provider. Concerned about what they will recommend as she has not benefited from physical therapy and chiropractic referrals in the past. Also expressed anxiety about being prescribed strong medications. Her dogs just had 7 puppies. They are going to find homes for them. Holidays are stressful. Son is sick with a sore throat and cough. Daughter has shared that patient has been more anxious and irritable. Father has been buying a house down the street. When she went to check out the house, she struggled with severe panic symptoms. For a while she was doing well with anxiety while driving her car. Daughter has been riding with her. Uses Diazepam only for severe symptoms of anxiety. Will try to use other coping skills first before using the medication. Does not need a refill at this time. She has not taken the Prazosin in the last week. Would like to stay off the medication as she has not had any nightmares. Is consistent in taking Latuda and Gabapentin. Takes it with 300 calories. Is going to start taking a multi-vitamin. She continues to smoke. Has been able to decrease use to 1/2 pack a day. Trying not to smoke as much and she is using hard candy to help. Interval Progress: Slightly improved PATIENT DATA: Generalized Anxiety Disorder Scale (ZAIRE-7) 01/08/2024 03/12/2024 05/10/2024 ZAIRE - 7 SCORES Score 8 12 11 (0-4) minimal anxiety, (5-9) mild anxiety, (10-14) moderate anxiety, (15-21) severe anxiety Patient Health Questionnaire (PHQ-9) 01/08/2024 03/12/2024 05/10/2024 PHQ-9 Score 6 6 9 (0-4) minimal depression, (5-9) mild depression, (10-14) [...] Tobacco use disorder PAST SURGICAL HISTORY Procedure (more content not included)... [facility] 05-14-2024 History of Present illness Narrative Images from the original note were not included. FOLLOW UP - PSYCHIATRIC PROGRESS NOTE PATIENT: Kristel Chilel DATE: May 14, 2024 Visit Type: Virtual Visit utilizing two-way [...] visit. Either the patient or their legal hr representative has been informed of the risks [...] HPI: Treatment Plan from Last Visit on 03/12/2024: TREATMENT PLAN: Repeat fasting monitoring lab work. Continue Gabapentin, Latuda, and Minipress at the same dose. Follow up with PCP consistently to gradually address physical health concerns. Continue engagement in coping skills to address anxiety symptoms. Today Kristel shares that that she had the surgery and removed the lump from behind her ear. The lump was non cancerous. The surgery went well and without complications. She has been asked to keep an eye if the lump re appears. Her anxiety was really high during the pre-op appointments. She focused on the ceiling and counting during the surgery and this helped with her anxiety. Overall had a really good experience and support from the healthcare team during the surgery. She is going to complete the fasting lab work. PCP is aware of elevated lipid levels and has reminded the patient to complete fasting lab work ordered. Patient plans on completing it after the holidays. Has a lot of health related anxiety and it is difficult for her to complete procedures like blood work. She has been consistent in taking the Latuda and Gabapentin. Concerned about her hair falling off. Her hair doesn't feel thin. Does not have any bald spots. Is monitoring this. Unsure if it is related to stress versus her medications. She has been eating consistently. Has lost weight and noticed some decrease in appetite. Continues to struggle with back pain, muscle pain. She is still getting headaches and light headedness. Is going to see a pain management provider. Concerned about what they will recommend as she has not benefited from physical therapy and chiropractic referrals in the past. Also expressed anxiety about being prescribed strong medications. Her dogs just had 7 puppies. They are going to find homes for them. Holidays are stressful. Son is sick with a sore throat and cough. Daughter has shared that patient has been more anxious and irritable. Father has been buying a house down the street. When she went to check out the house, she struggled with severe panic symptoms. For a while she was doing well with anxiety while driving her car. Daughter has been riding with her. Uses Diazepam only for severe symptoms of anxiety. Will try to use other coping skills first before using the medication. Does not need a refill at this time. She has not taken the Prazosin in the last week. Would like to stay off the medication as she has not had any nightmares. Is consistent in taking Latuda and Gabapentin. Takes it with 300 calories. Is going to start taking a multi-vitamin. She continues to smoke. Has been able to decrease use to 1/2 pack a day. Trying not to smoke as much and she is using hard candy to help. Interval Progress: Slightly improved PATIENT DATA: Generalized Anxiety Disorder Scale (ZAIRE-7) 01/08/2024 03/12/2024 05/10/2024 ZAIRE - 7 SCORES Score 8 12 11 (0-4) minimal anxiety, (5-9) mild anxiety, (10-14) moderate anxiety, (15-21) severe anxiety Patient Health Questionnaire (PHQ-9) 01/08/2024 03/12/2024 05/10/2024 PHQ-9 Score 6 6 9 (0-4) minimal depression, (5-9) mild depression, (10-14) [...] with food. Take with atleast 300 calories. gabapentin (NEURONTIN) 300 mg capsule Take 1 capsule by mouth two times a day for 60 days. albuterol HFA (PROVENTIL HFA, VENTOLIN HFA) 90 mcg/actuation inhaler Inhale 2 Puffs as instructed every 4 hours as needed for wheezing/shortness of breath. dicyclomine (BENTYL) 10 mg capsule TAKE 1 CAPSULE THREE TIMES DAILY BEFORE MEALS No current facility-administered medications on file prior to visit. ROS: See HPI PFSH: See HPI VITAL SIGNS: There were no vitals filed for this visit. Last 3 Encounter BP Readings: Date: BP: 02/29/2024 118/80 01/18/2024 126/62 11/24/2023 100/76 MENTAL STATUS EXAMINATION: Appearance: Casually dressed and groomed Behavior: Behaves appropriately during the encounter Social relatedness: Anxious Speech/Language: The patient demonstrates appropriate tone, prosody, yamileth, phonetics, and syntax Mood: Anxious Affect: Full and appropriate to topic Orientation: Person, Place, Time and Situation Associations: Intact and linear Hallucinations: None Delusions: None Suicidal Ideation: No suicidal ideation, intent or plan. Homicidal Ideation: No homicidal ideation, intent or plan. Insight: Appropriate Judgment: Appropriate DATA REVIEWED: Psychiatric scales, Electronic medical record, Labs, and The PDMP report was reviewed and found to be appropriate without any signs of misuse or diversion. DIAGNOSIS: Bipolar 2 disorder (hcc) (primary encounter diagnosis) [place] (generalized anxiety disorder) Metabolic syndrome Elevated lipids Anxiety about health Elevated liver enzymes Encounter for long-term (current) use of medications Current nicotine use GAF: -60-51 Moderate symptoms or moderate difficulty in social, occupational or school functioning. TREATMENT PLAN: Patient stopped taking the minipress for the last week and has not experienced any nightmares. Would like to discontinue use right now and she if she can manage without it. Continue Latuda at the same dose to help with mood symptoms. Taking it with 300 calories. Continue Gabapentin at the same dose to address anxiety and pain concerns. Utilize Diazepam as needed to manage severe episodes of anxiety. Did not request a refill at this time as she rarely uses it. Complete fasting monitoring lab work ordered. Follow up in 2 months or sooner if needed. Continue to work on gradually decreasing nicotine use. Okay to start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 yogurt 16.30 Source: [facility] -- [facility] Database on the Isoflavone Content of Foods, [...] black cohosh and soy products) are available onsf-hls-oddetqc but are not FDA-approved. Some prescription medications [...] some of the other options. Non-prescription, herbal, kupw-mbn-rcfwuot therapies: Drug Side Effects Effectiveness Evening Big Creek Oil Nausea, diarrhea, headache. Only one well-designed [...] per day compared to placebo. Are the awbi-cxl-lyreekj herbal products (botanicals) safe? While safe when [...] promoted. Be cautious of products promoted through: [employer] Direct mailings [employer] Ads disguised as valid news articles Ads in the back of magazines Additional red flags to look for include: Big claims: If products claim to be a cure for your condition, or gives outrageous claims, be cautious. Source: Be wary if the product is only offered through one razor sharpener or purchased only through a health care provider s office. Ingredients: Make sure all of the active ingredients are listed, and don t trust secret formulas. Testimonials: Remember that only people who are satisfied with a product give testimonials and that they may be getting paid for their endorsement References: National Center for Complementary and Alternative Medicine. Vitamin E. [facility].nih.gov Assessed September 18, 2012 Nayeli Donoheu et al. meta-analysis: High Dosage Vitamin E. Supplementation Might Increase All Cause Mortality. Annals of Internal Medicine June 23, 2004. annals.org National Center for Complementary and Alternative Medicine. Menopausal Symptoms and CAM. [facility].nih.gov Accessed September 18, [address] [place] Menopause Society, Hormone Therapy for women in 2012. www.menopause.org Assessed September 18, 2012 [place] Congress of Obstetricians and Gynecologists. Publications. The Menopause Years. www.acog.org Accessed 08/17/2010 Centers for Disease Control and Prevention. Women s Reproductive Health: Menopause. www.cdc.gov Accessed 08/17/2010 National Central Bridge on Aging. Age Page: Menopause. www.jaimie.nih.gov Accessed [...] not take ibuprofen and aspirin together. Copyright 1801-8590 [facility] [place]. All rights reserved This information is provided by the [facility] and is not intended to replace the medical advice of your doctor or health care provider. Please consult your health care provider for advice about a specific medical condition. For additional written health information, please contact the Health Information Center at the [facility] or toll-free extension [phone]. This document was last reviewed on: 2002 index#[id number] I spent a total of 20 minutes on the date of the service which included preparing to see the patient, zazp-ab-iwjt patient care, completing clinical documentation, obtaining and/or reviewing separately obtained history, counseling and educating the patient/family/caregiver, and ordering medications, tests, or procedures Alla Chauhan DO documented in this encounter [facility] 08-19-2023 History of Present illness Narrative FOLLOW UP - PSYCHIATRIC PROGRESS [...] visit. Either the patient or their legal hr representative has been informed of the risks [...] for any metabolic side effects associated with prison use of Olanzapine. 6. Encouraged to schedule an appointment with PCP to discuss concerns related to headaches and nausea. 7. Has an appointment with an OB in August to discuss her concerns related to hormone changes. Today Kristel shares that she is working on some crafts right now. She is doing a painting with [employer] right now. Her son is going be [...] 12 VAGINAL HYSTERECTOMY UTERUS 250 GM/< 06/19/15 [facility] Current Outpatient Medications Medication Sig Dispense Refill [...] which included preparing to see the patient, [id number] patient care, completing clinical documentation, obtaining and/or [...] TIME: 2:38 PM documented in this encounter [facility] 07-22-2023 History of Present illness Narrative FOLLOW UP - PSYCHIATRIC PROGRESS [...] visit. Either the patient or their legal hr representative has been informed of the risks [...] Today Kristel shares that I am doing okay. She is going back to school for [...] 12 VAGINAL HYSTERECTOMY UTERUS 250 GM/< 06/19/15 [facility] Current Outpatient Medications Medication Sig Dispense Refill [...] Psychiatric scales, Labs, Electronic medical record, and Vegetables Cook notes DIAGNOSIS: Bipolar 2 disorder Generalized Anxiety [...] for any metabolic side effects associated with area mechanic use of Olanzapine. 6. Encouraged to schedule [...] which included preparing to see the patient, zfuo-hk-[id number] patient care, completing clinical documentation, obtaining and/or [...] TIME: 2:07 PM documented in this encounter [facility] 04-04-2023 History of Present illness Narrative Images from the original note [...] visit. Either the patient or their legal hr representative has been informed of the risks [...] which included preparing to see the patient, qrfg-jx-xeta patient care, completing clinical documentation, and counseling and educating the patient/family/caregiver, ordering medications/labs. Kinsey Levine APRN.CNP April 04, 2023 3:01 PM This note was partially generated using [employer] voice recognition system. Note was reviewed for accuracy. There may be minor misspellings or grammar miscues with [employer] and [employer] voice recognition. documented in this encounter [facility] 03-28-2023 History of Present illness Narrative Patient requested to cancel the appointment as she was feeling ill. documented in this encounter [facility] 02-28-2023 History of Present illness Narrative Images from the original note [...] visit. Either the patient or their legal hr representative has been informed of the risks [...] which included preparing to see the patient, fvlh-th-kwvs patient care, completing clinical documentation, and counseling and educating the patient/family/caregiver, ordering medications/labs. Kinsey Levine APRN.[facility] February 28, 2023 3:35 PM This note was partially generated using [employer] voice recognition system. Note was reviewed for accuracy. There may be minor misspellings or grammar miscues with Dragon voice recognition. documented in this encounter [facility] 10-15-2022 Miscellaneous Notes Patient has been identified [...] advise. Coby Rice documented in this encounter [facility] 10-13-2022 History of Present illness Narrative Patient did not come in for her visit with the provider today. documented in this encounter [facility] 08-13-2022 Instructions Kinsey Levine APRN.CNP - 08/13/2022 3:37 PM EST Marilee Humphries, It was good to talk with you today. Below is a summary of the plan that we discussed during your appointment for reference. Of course, if you have any questions or concerns do not hesitate to reach out to me via a message or call. Kinsey Pal APRN.CNP PLAN AND FOLLOW UP: YOU SHOULD [...] - Call the National Suicide Hotline at 4-936-SWOHCTH ( ) or 9-279-760-XKDD (3411) - Text 5QLDG to 390732 Medication Update: Gabapentin 300 mg - take [...] may call the department appointment line at [phone] to schedule your appointment. -- Please call my nurse Portia at [phone] or send me a message in [employer] with any questions or concerns between appointments. documented in this encounter [facility] 08-13-2022 History of Present illness Narrative Images from the original note [...] which included preparing to see the patient, amfh-tq-cadz patient care, completing clinical documentation, and counseling and educating the patient/family/caregiver, ordering medications/labs. Kinsey Levine APRN.CNP August 13, 2022 3:04 PM This note was partially generated using [employer] voice recognition system. Note was reviewed for accuracy. There may be minor misspellings or grammar miscues with [employer] voice recognition. documented in this encounter [facility] 07-21-2022 History of Present illness Narrative Patient requested to reschedule the appointment as she was not feeling well. documented in this encounter [facility] 06-30-2022 Instructions Kinsey Levine APRN.CNP - 06/30/2022 [...] Kinsey Pal APRN.CNP PLAN AND FOLLOW UP: YOU SHOULD [...] - Call the National Suicide Hotline at 7-303-LIHNGTC ( ) or 4-294-643-TALK (2435) - Text 4HOPE to 206690 Medication Update: Gabapentin 300 mg - take 1 capsule twice daily. Diazepam 5 mg - take 1 tablet once daily as needed for anxiety and panic symptoms. Continue Zyprexa at the same dose. Next appointment: July 21 at 2:30 pm Virtual -- Please call my nurse Portia at [phone] or send me a message in [employer] with any questions or concerns between appointments. documented in this encounter [facility] 06-30-2022 History of Present illness Narrative Images from the original note [...] which included preparing to see the patient, pyql-ye-gkou patient care, completing clinical documentation, and counseling and educating the patient/family/caregiver, ordering medications/labs. Kinsey Levnie APRN.CNP June 30, 2022 3:29 PM This note was partially generated using [employer] voice recognition system. Note was reviewed for accuracy. There may be minor misspellings or grammar miscues with [employer] voice recognition. documented in this encounter [facility] 04-28-2022 Instructions Kinsey Levine APRN.CNP - 04/28/2022 [...] - Call the National Suicide Hotline at 4-931-TFOXMXH ( ) or 5-323-734-TALK (5730) - Text 0DUZU to 333041 Medication Update: Zyprexa 10 mg - take 1 tablet at bedtime. 2. Continue Diazepam and Gabapentin at the same dose. Next appointment: --Schedule in 4 weeks or sooner if needed -- You may call the department appointment line at [phone] to schedule your appointment. -- Please call my nurse Portia at [phone] or send me a message in [employer] with any questions or concerns between appointments. documented in this encounter [facility] 04-28-2022 History of Present illness Narrative Images from the original note [...] which included preparing to see the patient, rfca-qi-yhco patient care, completing clinical documentation, and counseling and educating the patient/family/caregiver, ordering medications/labs. Kinsey Levine APRN.CNP April 28, 2022 2:28 PM This note was partially generated using [employer] voice recognition system. Note was reviewed for accuracy. There may be minor misspellings or grammar miscues with [employer] voice recognition. documented in this encounter [facility] 03-26-2022 Instructions Kinsey Levine APRN.CNP - 03/26/2022 [...] - Call the National Suicide Hotline at 4-107-YFFSGPJ ( ) or 6-326-777-TALK (7057) - Text 4HOPE to 413207 Medication Update: Zyprexa 5 mg - take 1 tablet every night at bedtime. Gabapentin 300 mg - take 1 capsule twice daily. Diazepam 2 mg - take 1 tablet once daily only if needed for severe anxiety or panic symptoms. Next appointment: --Schedule in 4 weeks or sooner if needed -- You may call the department appointment line at [phone] to schedule your appointment. -- Please call my nurse Portia at [phone] or send me a message in [employer] with any questions or concerns between appointments. documented in this encounter [facility] 03-26-2022 History of Present illness Narrative Images from the original note [...] patient consent, visit was performed virtually. HPI: Kristle Chilel is a 37 year old Female [...] which included preparing to see the patient, yedd-xa-dldb patient care, completing clinical documentation, and counseling and educating the patient/family/caregiver, ordering medications/labs. Kinsey Levine APRN.CNP March 26, 2022 4:02 PM This note was partially generated using [employer] voice recognition system. Note was reviewed for accuracy. There may be minor misspellings or grammar miscues with Dragon voice recognition. documented in this encounter [facility] 12-07-2021 History of Present illness Narrative Patient requested to cancel the appointment 15 minutes before the appointment due to having a rough night. Did not reschedule an appointment with this provider yet. documented in this encounter [facility] 11-27-2021 History of Present illness Narrative Images from the original note [...] which included preparing to see the patient, rltn-ys-agwt patient care, completing clinical documentation, and counseling and educating the patient/family/caregiver, ordering medications/labs. Kinsey Levine APRN.CNP November 27, 2021 11:07 AM documented in this encounter [facility] 10-19-2021 History of Present illness Narrative Telemedicine Visit - Distance Health Virtual Visit Note Patient seen on [employer] platform. Location of patient: [place] History of Present Illness Kristel Chilel is [...] Y/O SALPINGECTOMY Bilateral 06/19/15 VAGINAL HYSTERECTOMY 06/19/15 [facility] FAMILY HISTORY Problem Relation Age [...] with cough and to thin out mucus -[email or web address].choosingwisely.org/pat ient-resources/antibiotics/. This link shares information about when antibiotics [...] would like to continue care with a [facility] Virtual Primary Care physician, please ask your provider to place a Establish Primary Care order. Use [employer] to manage your care, wherever you are, 10/01, on your mobile device or computer. [employer] connects you to [employer] so you can access all your health information in one place and also schedule and request virtual appointments with primary care providers. documented in this encounter [facility] 10-19-2021 History of Present illness Narrative Pt exited virtual waiting room while provider performing chart review. Pt left without being seen. Coby Narvaez APRN.RETURNED CASE INSPECTOR documented in this encounter [facility] 03-29-2013 History of Past i llness Narrative [...] hemorrhage, currently preg nant 05/25/2012 02/22/2013 Overview: 05/25/2012Shnayeli has a history of hemorrhage with her [...] 02/19/2010 06/06/2012 Overview: [facility] [place] DEPRESSION 10/28/2009 06/06/2012 Poor growth, affecting management of mother, antepartum condition or complication 08/20/2009 10/10/2009 Galactorrhea not associated with childbirth 11/1810/10/2009 Mastodynia 11/29/2008 10/10/2009 Tobacco use disorder 08/06/2008 06/06/2012 documented as of this encounter (statuses as of 10/19/2021) [facility] History of Past illness Narrative* Problem Noted [...] 02/19/2010 06/06/2012 Overview: [facility] DEPRESSION 10/28/2009 06/06/2012 Poor growth, affecting management of mother, antepartum condition or complication 08/20/2009 10/10/2009 Galactorrhea not associated with childbirth 11/1810/10/2009 Mastodynia 11/29/2008 10/10/2009 Tobacco use disorder 08/06/2008 06/06/2012 documented as of this encounter (statuses as of 11/30/2021) [facility] History of Past illness Narrative* Problem Noted [...] Routine gynecological examination 02/19/2010 06/06/2012 Overview: [facility] [place], [facility] [place] DEPRESSION 10/28/2009 06/06/2012 Poor growth, affecting management of mother, antepartum condition or complication 08/20/2009 10/10/2009 Galactorrhea not associated with childbirth 11/1810/10/2009 Mastodynia 11/29/2008 10/10/2009 Tobacco use disorder 08/06/2008 06/06/2012 documented as of this encounter (statuses as of 12/07/2021) [facility] History of Past illness Narrative* Problem Noted [...] examination 02/19/2010 06/06/2012 Overview: [facility] [place] DEPRESSION 10/28/2009 06/06/2012 Poor growth, affecting management of mother, antepartum condition or complication 08/20/2009 10/10/2009 Galactorrhea not associated with childbirth 11/1810/10/2009 Mastodynia 11/29/2008 10/10/2009 Tobacco use disorder 08/06/2008 06/06/2012 documented as of this encounter (statuses as of 03/26/2022) [facility] History of Past illness Narrative* Problem Noted [...] examination 02/19/2010 06/06/2012 Overview: [facility] [place] DEPRESSION 10/28/2009 06/06/2012 Poor growth, affecting management of mother, antepartum condition or complication 08/20/2009 10/10/2009 Galactorrhea not associated with childbirth 11/1810/10/2009 Mastodynia 11/29/2008 10/10/2009 Tobacco use disorder 08/06/2008 06/06/2012 documented as of this encounter (statuses as of 05/05/2022) [facility] History of Past illness Narrative* Problem Noted [...] examination 02/19/2010 06/06/2012 Overview: [facility] [place] DEPRESSION 10/28/2009 06/06/2012 Poor growth, affecting management of mother, antepartum condition or complication 08/20/2009 10/10/2009 Galactorrhea not associated with childbirth 11/1810/10/2009 Mastodynia 11/29/2008 10/10/2009 Tobacco use disorder 08/06/2008 06/06/2012 documented as of this encounter (statuses as of 07/06/2022) [facility] of Past illness Narrative* Problem Noted [...] examination 02/19/2010 06/06/2012 Overview: [facility] [place] DEPRESSION 10/28/2009 06/06/2012 Poor growth, affecting management of mother, antepartum condition or complication 08/20/2009 10/10/2009 Galactorrhea not associated with childbirth 11/1810/10/2009 Mastodynia 11/29/2008 10/10/2009 Tobacco use disorder 08/06/2008 06/06/2012 documented as of this encounter (statuses as of 07/21/2022) [facility] History of Past illness Narrative* Problem Noted [...] 02/19/2010 06/06/2012 Overview: [facility] DEPRESSION 10/28/2009 06/06/2012 Poor growth, affecting management of mother, antepartum condition or complication 08/20/2009 10/10/2009 Galactorrhea not associated with childbirth 11/1810/10/2009 Mastodynia 11/29/2008 10/10/2009 Tobacco use disorder 08/06/2008 06/06/2012 documented as of this encounter (statuses as of 08/13/2022) [facility] History of Past illness Narrative* Problem Noted [...] 02/19/2010 06/06/2012 Overview: [facility] DEPRESSION 10/28/2009 06/06/2012 Poor growth, affecting management of mother, antepartum condition or complication 08/20/2009 10/10/2009 Galactorrhea not associated with childbirth 11/1810/10/2009 Mastodynia 11/29/2008 10/10/2009 Tobacco use disorder 08/06/2008 06/06/2012 documented as of this encounter (statuses as of 10/13/2022) [facility] of Past [facility] Narrative* Problem Noted [...] the night. Also, recommended peppermint candies. Daisy Morales, RETURNED CASE INSPECTOR Immunization due 05/25/2012 02/22/2013 Overview: 05/25/2012 patient states her tetanus vaccine is not up-to-date Other acne 06/30/2010 06/06/2012 Folliculitis 06/30/2010 06/06/2012 Pruritus 06/30/2010 06/06/2012 Eczematous dermatitis 06/30/2010 06/06/2012 Acne Urticata 06/30/2010 06/06/2012 Routine general medical exam ination at a health care facility 02/19/2010 06/06/2012 Overview: 02/19/2010, from Dr. Deras Routine gynecological examination 02/19/2010 06/06/2012 Overview: [facility] [place] DEPRESSION 10/28/2009 06/06/2012 Poor growth, affecting management of mother, antepartum condition or complication 08/20/2009 10/10/2009 Galactorrhea not associated with childbirth 11/1810/10/2009 Mastodynia 11/29/2008 10/10/2009 Tobacco use disorder 08/06/2008 06/06/2012 documented as of this encounter (statuses as of 10/15/2022) [facility] of Past illness Narrative* Problem Noted [...] examination 02/19/2010 06/06/2012 Overview: [facility], [facility] [place] DEPRESSION 10/28/2009 06/06/2012 Poor growth, affecting management of mother, antepartum condition or complication 08/20/2009 10/10/2009 Galactorrhea not associated with childbirth 11/29/2008 10/10/2009 Mastodynia 11/29/2008 10/10/2009 Tobacco use disorder 08/06/2008 012 documented as of this encounter (statuses as of 03/04/2023) [facility] of Past illness Narrative* Problem Noted [...] 02/19/2010 06/06/2012 Overview: [facility] DEPRESSION 10/28/2009 06/06/2012 Poor growth, affecting management of mother, antepartum condition or complication 08/20/2009 10/10/2009 Galactorrhea not associated with childbirth 11/29/2008 10/10/2009 Mastodynia 11/29/2008 10/10/2009 Tobacco use disorder 08/06/2008 012 documented as of this encounter (statuses as of 03/29/2023) [facility] of Past [facility] Narrative* Problem Noted [...] of hemorr casey, currently 05/25/2012 02/22/2013 Overview: 05/25/2012Dyane has a history of hemorrhage with her [...] 02/19/2010 06/06/2012 Overview: [facility] DEPRESSION 10/28/2009 06/06/2012 Poor growth, affecting management of mother, antepartum condition or complication 08/20/2009 10/10/2009 Galactorrhea not associated with childbirth 11/29/2008 10/10/2009 Mastodynia 11/29/2008 10/10/2009 Tobacco use disorder 08/06/2008 012 documented as of this encounter (statuses as of 04/06/2023) [facility] History of Past illness Narrative* Problem Noted [...] prescription for Phenergan was given by Dr. Mcekon. Last Assessment & Plan: 07/04/2012 States ongoing [...] Deras Routine gynecological examination 02/19/2010 06/06/2012 Overview: [facility] [place], [facility] [place] DEPRESSION 10/28/2009 06/06/2012 Poor growth, affecting management of mother, antepartum condition or complication 08/20/2009 10/10/2009 Galactorrhea not associated with childbirth 11/29/2008 10/10/2009 Mastodynia 11/29/2008 10/10/2009 Tobacco use disorder 08/06/2008 012 documented as of this encounter (statuses as of 07/29/2023) [facility] of Past illness Narrative* Problem Noted [...] examination 02/19/2010 06/06/2012 Overview: [facility] [place] DEPRESSION 10/28/2009 06/06/2012 Poor growth, affecting management of mother, antepartum condition or complication 08/20/2009 10/10/2009 Galactorrhea not associated with childbirth 11/29/2008 10/10/2009 Mastodynia 11/29/2008 10/10/2009 Tobacco use disorder 08/06/2008 012 documented as of this encounter (statuses as of 08/25/2023) [facility] of Past illness Narrative* Problem Noted [...] 02/19/2010 06/06/2012 Overview: [facility] DEPRESSION 10/28/2009 06/06/2012 Poor growth, affecting management of mother, antepartum condition or complication 08/20/2009 10/10/2009 Galactorrhea not associated with childbirth 11/29/2008 10/10/2009 Mastodynia 11/29/2008 10/10/2009 Tobacco use disorder 08/06/2008 012 documented as of this encounter (statuses as of 09/05/2023) [facility] of Past illness Narrative* Problem Noted [...] examination 02/19/2010 06/06/2012 Overview: [facility], [facility] [place] DEPRESSION 10/28/2009 06/06/2012 Poor growth, affecting management of mother, antepartum condition or complication 08/20/2009 10/10/2009 Galactorrhea not associated with childbirth 11/29/2008 10/10/2009 Mastodynia 11/29/2008 10/10/2009 Tobacco use disorder 08/06/2008 012 documented as of this encounter (statuses as of 09/25/2023) [facility] Note Date/Time August 23, 2024 11:3 0am [facility] Medical Records Department [address] [place] [address] Emergency Department Summary 08/23/24 MR#: [id number] Acct: [id number] Name: KRISTEL CHILEL Rep #:[id number] : 1985 39 From: Kel Garcia MD PCP: Dr. Brent Conde MD Status :REG ER Location: ED HPI HPI - URI History of Present Illness Chief Complaint: Cold Sx Informant: patient and family Onset/Context/Timing Onset: Days Context: Gradual Onset Timing: Continuous Current Severity: Mild Maximum Severity: Mild Associated Symptoms Associated Symptoms: Positive for Nasal Congestion, Myalgias, Nausea, Shortness of Breath and Nonproductive cough; Negative for Vomiting or Diarrhea Narrative Narrative: 39-year-old female history of anxiety and borderline diabetes. Patient is a smoker. 3-day history of URI with fever as high as 102 nonproductive cough and wheezing. Patient is a smoker. Another female present in the room said she hadsimilar symptoms the other day. Prior similar symptoms: Yes Recent Illness/Hospitalization: No ROS ROS ED ROS Narrative Nonproductive cough. Fever. Body aches. Wheezing and shortness of breath. Constitutional Constitutional ED: Reports fever(s) Eyes Eyes: Denies blurry vision ENT ENT ED: Denies ear pain Cardiovascular Cardiovascular: Denies chest pain Respiratory/Chest Respiratory/Chest: Reports cough and dyspnea Gastrointestinal Gastrointestinal: Denies abdominal pain Genitourinary Genitourinary ED: Denies dysuria or hematuria Musculoskeletal Musculoskeletal: Denies arthralgias Integumentary Denies abscess Neurologic Neurologic: Denies headache(s) Psychiatric Psychiatric: Reports anxiety Endocrine Endocrinology: Denies cold intolerance Hematologic/Lymphatic Hematologic/Lymphatic: Reports easy bleeding Allergic/Immunologic Allergic/Immunologic ED: Denies mouth swelling, tongue swelling or urticaria PFSH [facility] Medical History Wears glasses Post-menopausal Depression History of steroid therapy Back pain Injury of head and neck Gastric reflux Smoker Asthma Leg cramps History of pain when walking History of edema Bulging disc Bipolar 2 disorder Back pain Migraine Panic attack Anxiety Home Medications ?Medication ?Instructions ?Recorded ?Last Taken ?Type albuterol sulfate 90 mcg/actuation 2 puff inhalation Q 4H PRN PRN sob 11/30/21 03/25/24 Rx aerosol inhaler (Ventolin HFA) #8.5 grams diazepam 2 mg tablet (Valium) 2 mg PO QHS PRN muscle s pasm #10 12/12/21 03/25/24 Rx tabs gabapentin 300 mg capsule 300 mg PO BID 02/27/2403/25 History lurasidone 40 mg tablet 40 mg PO DAILY 02/27/24 10/0 12/11 History prazosin 1 mg capsule 1 mg PO QHS 02/27/24 4 History albuterol sulfate 90 mcg/actuation 1 - 2 puff inhalati on Q4H PRN PRN 08/23/24 Unknown Rx aerosol inhaler (Ventolin HFA) Wheezing 1 week #1 denae ce azithromycin 250 mg tablet See Rx Instructions PO .COM PLEX #6 08/23/24 Unknown Rx (Zithromax) tabs prednisone 20 mg tablet 40 mg (2 x 20 mg) PO DAILY 7 days 08/23/24 Unknown Rx #14 tabs Allergy/AdvReac Type Severity Reaction Status Date / Time Sulfa (Sulfonamide Allergy Rash Verified 08/23/24 11:04 Antibiotics) Surgical History Hx of surgical procedure History of tonsillectomy and adenoidectomy Hx of hysterectomy Social History Smoking Status: Current every day smoker tobacco type: cigarettes EXAM Physical Exam Narrative Exam Narrative: EENT exam pupils round reactive light. TMs normal. Posterior pharynx moist andpink. No trouble breathing or swallowing.39-year-old female sitting upright in bed. Vital signs are stable she is afebrile currently. Pulse ox 97% on room air no signs of hypoxia. No significant distress she does have wheezing. HEENT exam Pupils are round reactive light. Extra motions are intact. Posterior pharynx moist and pink. No trouble swallowing. No stridor. TMs normal. Neck nontender no lymphadenopathy. Lungs Expiratory wheezing bilaterally. No rales or rhonchi. Equal symmetrical. Heart Regular rhythm rate about 110 no murmur. Chest wall ribs nontender. Abdomen soft nontender. Back nontender. Moving all 4 extremities. Normal strength. Calves are nontender without edema. No cords. Neurologically she is awake and alert. Const Vital Signs: 08/23/24 09:19 08/23/24 09:49 Temperature 98.6 F Temperature Source Oral Pulse Rate 111 H 108 H Respiratory Rate 18 16 Blood Pressure 126/86 H Blood Pressure Mean 99 Pulse Ox 97 Oxygen Delivery Method Room Air Positive well developed; Negative for cachectic or contractures General Appearance ED: well developed and NAD; Negative for cachectic, contractures, cyanotic or diaphoretic Nutritional Appearance: Negative for cachectic HEENT Reports moist mucous membranes normocephalic Throat: posterior oropharynx normal Eyes PERRL and EOMs intact bilaterally Neck no lymphadenopathy, supple, no meningeal signs and no JVD General: Negative for anterior neck swelling or lymphadenopathy Resp normal respiratory effort and No clear to auscultation bilaterally Resp Narrative: Bilateral expiratory wheezes. Auscultation: wheezes Cardio S1 normal heart sound, S2 normal heart sound and no murmurs Rate: tachycardic Rhythm: regular rhythm GI non-tender, non-distended and no masses Palpation: soft; Negative for tender or guarding Back/Spine no CVA tenderness and normal ROM General Back: Negative for CVA tenderness Cervical Spine: Negative for cervical spine tenderness Thoracic Spine / Upper Back: Negative for thoracic spinal tenderness Lumbar Spine / Lower Back: Negative for lumbar spinal tenderness Sacrum: Negative for tenderness Extremity normal to inspection and full ROM General Extremety ED: Negative for cyanosis or tenderness General Extremity: Negative for cyanosis Neuro oriented x3 and CN's II-XII intact bilaterally Sensorium / Orientation: alert, oriented to person, oriented to place and oriented to time; Negative for orientation impaired, lethargic or stuporous Motor Exam: strength 5/5 throughout Psych mental status grossly normal Appearance: Negative for other Attitude: No agitated Mood & Affect: anxious; Negative for depressed Skin General Skin Exam: Negative for jaundice Lesions: no lesions Rashes: no rashes MDM MDM MDM Narrative Medical decision making narrative: 39-year-old female URI suspect viral most likely influenza. COVID and flu testing. Chest x-ray to rule out pneumonia. Prednisone orally and DuoNeb aerosol for her wheezing. I do not think she needs any blood work. Repeat exam at 11:19 AM. Patient improved after the steroids and aerosol treatment. Patient document discharged home. She was placed on prednisone 40 mg a day for 1 week. Refill of her inhaler. I will write her for Zithromax I told her to wait and see how she is feeling hopefully she progressively improve discussed most likely this is viral if not she can start antibiotic. History & Record Review Discussion w/independent historian: Family Additional record(s) reviewed:: Prior inpatient record, Prior outpatient record,Prior ED visit and Prior labs Lab Data Attestation: I reviewed the patient's lab results. Lab results narrative: COVID, flu and RSV are negative. Radiography Chest X-Ray - ED: 2 View, Read by ED Physician, Normal, Heart, Lungs, Mediastinum, Bony Structures, No Acute Disease and Chronic Changes Diagnostic Testing: Clinical Impression(s) from Imaging Studies Chest X-Ray 08/23/24 10:00 IMPRESSION: No active cardiopulmonary disease.. Reading Location: [place] [address] Chest x-ray, 2 views, AP and lateral, interpreted by myself shows no acute abnormality. Normal cardiac silhouette. Normal lung renteria. No pneumonia. Noeffusions. Discharge Plan Triage Chief Complaint: Cold Sx ED Provider: Kel Garcia Dx/Rx/DC Orders Clinical Impression: Bronchitis, Bilateral wheezing Instructions: ED Bronchitis with Wheezing (Adult) Prescriptions: New prednisone 20 mg tablet 40 mg PO DAILY 7 Days Qty: 14 0RF albuterol sulfate [Ventolin HFA] 90 mcg/actuation HFA aerosol inhaler 1 - 2 puff inhalation Q4H PRN PRN (Reason: Wheezing) 7 Days Qty: 1 1RF azithromycin [Zithromax] 250 mg tablet See Rx Instructions .ROUTE .COMPLEX Qty: 6 0RF Rx Instructions: For 250 mg dose pack: take 500 mg today (day 1), then 250 mg for 4 days (days 2- 5) No Action albuterol sulfate [Ventolin HFA] 90 mcg/actuation HFA aerosol inhaler 2 puff INHALATION Q4H PRN PRN (Reason: sob) Qty: 8.5 0RF diazepam [Valium] 2 mg tablet 2 mg PO QHS PRN (Reason: muscle spasm) Qty: 10 0RF prazosin 1 mg capsule 1 mg PO QHS gabapentin 300 mg capsule 300 mg PO BID lurasidone 40 mg tablet 40 mg PO DAILY Primary Care Provider: Brent Conde Referrals: Brent Conde MD [Primary Care Provider] - 1 Week if not improving Activity Restrictions/Additional Instructions: Respiratory infection causing you wheezing. Most likely it is viral. Take the steroids 40 mg a day for a week starting tomorrow that will help decrease inflammation in your lungs and decrease the wheezing. Use your inhaler 1 to 2 puffs every 4 hours as needed for wheezing and shortnessof breath. Given several more days if you are not improving start antibiotic Zithromax. Follow-up with . Your doctor if not improving. Print Language: Argentine Disposition Disposition: Home, Self Care What to do if you have Problems For any increased pain, shortness of breath, bleeding, nausea or vomiting, chestpain, or any unexpected problems, contact your Primary Care Provider. Call [facility] ([phone]) or report to the closest Emergency Room. Call 911 if necessary. 08/23/24 1130 <Electronically signed by Kel Garcia MD> Cosigner Signature (if applicable): CC: Dr. Brent Conde MD ~ Signed [facility] Work Phone: Evaluation noteNo assessment information available [facility] Work Phone: Evaluation note* Diagnosis Treatment not available- Primary Procedure not carried out for other reasons Patient left without being seen Surgical or other procedure not carried out because of patient's decision [facility] Mouth pain- Primary Other and unspecified diseases of the oral soft tissues [facility] Diagnosis Bipolar 2 disorder (HCC)- Primary Other bipolar disorders ZAIRE (generalized anxiety disorder) Generalized anxiety disorder [facility] Diagnosis APPOINTMENT CANCELLED- Primary [facility] Diagnosis ZAIRE (generalized anxiety disorder)- Primary Generalized anxiety disorder Bipolar 2 disorder (HCC) Other bipolar disorders [facility] Diagnosis Bipolar 2 disorder (HCC)- Primary Other bipolar disorders ZAIRE (generalized anxiety disorder) Generalized anxiety disorder [facility] Diagnosis Bipolar 2 disorder (HCC)- Primary Other bipolar disorders ZAIRE (generalized anxiety disorder) Generalized anxiety disorder [facility]ANCELLED- [facility] Encounter for long-term (current) use of medications- Primary Encounter for long-term (current) use of other medications ZAIRE (generalized anxiety disorder) Generalized anxiety disorder Bipolar 2 disorder (HCC) Other bipolar disorders [facility] NO SHOW- Primary [facility] Diagnosis ZAIRE (generalized anxiety disorder)- Primary Generalized anxiety disorder Bipolar 2 disorder (HCC) Other bipolar disorders Nightmares Other dysfunctions of sleep stages or arousal from sleep [facility] Diagnosis APPOINTMENT CANCELLED- Primary [facility] Diagnosis Hot flashes- Primary Symptomatic menopausal [...] arousal from sleep [facility] Diagnosis Bipolar 2 disorder (HCC)- Primary Other bipolar disorders ZAIRE (generalized anxiety disorder) Generalized anxiety disorder Encounter for long-term (current) use of medications Encounter for long-term (current) use of other medications Nightmares Other dysfunctions of sleep stages or arousal from sleep Current nicotine use [facility] Diagnosis Bipolar 2 disorder (HCC)- Primary Other bipolar disorders ZAIRE (generalized anxiety disorder) Generalized anxiety disorder [facility] Diagnosis Hot flashes- Primary Symptomatic menopausal or female climacteric states Irritability Other acne Hair thinning Alopecia, unspecified [facility] Diagnosis Bipolar 2 disorder (HCC)- Primary Other bipolar disorders ZAIRE (generalized anxiety disorder) Generalized anxiety disorder [facility] Diagnosis Abnormal hemoglobin (HCC)- Primary Other hemoglobinopathies ZAIRE (generalized anxiety disorder) Generalized anxiety disorder Elevated liver enzymes Other nonspecific abnormal serum enzyme levels Metabolic syndrome Dysmetabolic Syndrome X Bipolar 2 disorder (HCC) Other bipolar disorders [facility] Diagnosis URI, acute- Primary Acute upper respiratory infections of unspecified site Acute cough Acute otitis media, right Unspecified otitis media [facility] Diagnosis Encounter for long-term (current) use of medications- Primary Encounter for long-term (current) use of other medications Bipolar 2 disorder (HCC) Other bipolar disorders ZAIRE (generalized anxiety disorder) Generalized anxiety disorder Metabolic syndrome Dysmetabolic Syndrome X Elevated liver enzymes Other nonspecific abnormal serum enzyme levels documented in this encounter [facility] note* Diagnosis Bipolar 2 disorder (HCC)- Primary Other bipolar disorders ZAIRE (generalized anxiety disorder) Generalized anxiety disorder Metabolic syndrome Dysmetabolic Syndrome X Elevated liver enzymes Other nonspecific abnormal serum enzyme levels Irritability Abnormal hemoglobin (HCC) Other hemoglobinopathies [facility] Diagnosis Elevated lipids- Primary Other and unspecified hyperlipidemia documented in this encounter [facility] note* Diagnosis Hyperlipidemia, mixed- Primary Mixed hyperlipidemia Daytime somnolence Hypersomnia, unspecified Nodule of external ear, left documented in this encounter [facility] note* Diagnosis Nodule of external ear, left documented in this encounter [facility] note* Diagnosis Depression- Primary Depressive disorder, not elsewhere classified Preventive measure Unspecified prophylactic or treatment measure Encounter to establish care Other reasons for seeking consultation Viral upper respiratory illness- Primary Acute upper respiratory infections of unspecified site documented in this encounter [facility] note* Diagnosis Depression- Primary Depressive disorder, not elsewhere classified Preventive measure Unspecified prophylactic or treatment measure Encounter to establish care Other reasons for seeking consultation Metabolic syndrome- Primary Dysmetabolic Syndrome X Elevated lipids Other and unspecified hyperlipidemia Bipolar 2 disorder (HCC) Other bipolar disorders ZAIRE (generalized anxiety disorder) Generalized anxiety disorder Anxiety about health documented in this encounter [facility] note* Diagnosis Depression- Primary Depressive disorder, not elsewhere classified Preventive measure Unspecified prophylactic or treatment measure Encounter to establish care Other reasons for seeking consultation Bipolar 2 disorder (HCC)- Primary Other bipolar disorders ZAIRE (generalized anxiety disorder) Generalized anxiety disorder Metabolic syndrome Dysmetabolic Syndrome X Elevated lipids Other and unspecified hyperlipidemia Anxiety about health Elevated liver enzymes Other nonspecific abnormal serum enzyme levels Encounter for long-term (current) use of medications Encounter for long-term (current) use of other medications Current nicotine use documented in this encounter [facility] note* Diagnosis Depression- Primary Depressive disorder, not elsewhere classified Preventive measure Unspecified prophylactic or treatment measure Encounter to establish care Other reasons for seeking consultation ZAIRE (generalized anxiety disorder)- Primary Generalized anxiety disorder Bipolar 2 disorder (HCC) Other bipolar disorders Encounter for long-term (current) use of medications Encounter for long-term (current) use of other medications Metabolic syndrome Dysmetabolic Syndrome X Elevated lipids Other and unspecified hyperlipidemia Current nicotine use Irritability documented in this encounter [facility] note* Diagnosis Depression- Primary Depressive disorder, not elsewhere classified Preventive measure Unspecified prophylactic or treatment measure Encounter to establish care Other reasons for seeking consultation SOB (shortness of breath)- Primary Shortness of breath documented in this encounter [facility] note* Diagnosis Depression- Primary Depressive disorder, not elsewhere classified Preventive measure Unspecified prophylactic or treatment measure Encounter to establish care Other reasons for seeking consultation Bipolar 2 disorder (HCC)- Primary Other bipolar disorders ZAIRE (generalized anxiety disorder) Generalized anxiety disorder Metabolic syndrome Dysmetabolic Syndrome X Elevated lipids Other and unspecified hyperlipidemia Encounter for long-term (current) use of medications Encounter for long-term (current) use of other medications [facility] Diagnosis Depression- Primary Depressive disorder, not elsewhere classified Preventive measure Unspecified prophylactic or treatment measure Encounter to establish care Other reasons for seeking consultation URI, acute- Primary Acute upper respiratory infections of unspecified site documented in this encounter [facility] note* Diagnosis Depression- Primary Depressive disorder, not elsewhere classified Preventive measure Unspecified prophylactic or treatment measure Encounter to establish care Other reasons for seeking consultation Bipolar 2 disorder (HCC)- Primary Other bipolar disorders ZAIRE (generalized anxiety disorder) Generalized anxiety disorder Decreased appetite Anorexia Headaches Nausea Nausea alone Irritability Encounter for long-term (current) use of medications Encounter for long-term (current) use of other medications [facility] Diagnosis Depression- Primary Depressive disorder, not elsewhere classified Preventive measure Unspecified prophylactic or treatment measure Encounter to establish care Other reasons for seeking consultation Bipolar 2 disorder (HCC)- Primary Other bipolar disorders ZAIRE (generalized anxiety disorder) Generalized anxiety disorder Encounter for long-term (current) use of medications Encounter for long-term (current) use of other medications Decreased appetite Anorexia Headaches Hair loss Alopecia, unspecified Weight loss Loss of weight documented in this encounter [facility] note* Diagnosis Depression- Primary Depressive disorder, not elsewhere classified Preventive measure Unspecified prophylactic or treatment measure Encounter to establish care Other reasons for seeking consultation Bipolar 2 disorder (HCC)- Primary Other bipolar disorders ZAIRE (generalized anxiety disorder) Generalized anxiety disorder Panic attacks Panic disorder without agoraphobia Psychosocial stressors Other psychological or physical stress, not elsewhere classified Encounter for long-term (current) use of medications Encounter for long-term (current) use of other medications [facility] Diagnosis Depression- Primary Depressive disorder, not elsewhere classified Preventive measure Unspecified prophylactic or treatment measure Encounter to establish care Other reasons for seeking consultation Bipolar 2 disorder (HCC)- Primary Other bipolar disorders [facility] Additional Instructions Please eat a bland diet and have smaller frequent meals as there is a chance that symptoms are related to a malfunctioning gallbladder. This would need further diagnosis through something called a HIDA scan. Please talk to the plate glass grinder about possibly obtaining the scan or need for EGD/scope if your symptoms persist and return to the ER should you have any further concerns.[facility] Work Phone: Hospital Discharge instructions Additional Instructions COVID-negative. Cardiac work-up negative. Follow-up with your doctor. Return if any worsening symptoms.[facility] Work Phone: Hospital Discharge instructions Additional Instructions Respiratory infection causing you wheezing. Most likely it is viral. Take the steroids 40 mg a day for a week starting tomorrow that will help decrease inflammation in your lungs and decrease the wheezing. Use your inhaler 1 to 2 puffs every 4 hours as needed for wheezing and shortness of breath. Given several more days if you are not improving start antibiotic Zithromax. Follow-up with Dr. Cee doctor if not improving.[facility] Work Phone: Reason for referral (narrative)No reason for referral information availableWSt. [facility] Work Phone: Chief Complaint and Reason for Visit Chief Complaint BACK chest pain Chief Complaint BACK chest pain chest pain chest pain Chief Complaint BACK chest pain chest pain chest pain CP Chief Complaint BACK chest pain chest pain chest pain CP CHEST PAIN Chief Complaint chest pain chest pain chest pain CP CHEST PAIN ABDOMINAL PAIN Chief Complaint chest pain CP CHEST PAIN ABDOMINAL PAIN ABD PAIN Chief Complaint chest pain CP CHEST PAIN ABDOMINAL PAIN ABD PAIN n/v Chief Complaint CP CHEST PAIN ABDOMINAL PAIN ABD PAIN n/v headache, dizziness, chest tightness Chief Complaint Admit Date cold sx August 23, 2024 9:17 am Advance Directives No Advanced Directives Records Found Advance Directive Response Recorded Date/ Time Advance Directives No May 11:20am Living Will No October 07, 2021 1:28pm Power of Certified Juvenile Probation Officer No October 07 1:28pm Advance Directive Response Recorded Date/ Time Advance Directives No May 11:20am Living Will No November 09, 2021 2 :17am Power of Certified Juvenile Probation Officer No November 09, 2021 2:17am Advance Directive Response Recorded Date/ Time Advance Directives No May 11:20am Living Will No November 30, 2021 9:02pm Power of Certified Juvenile Probation Officer No November 30 2 9:02pm Advance Directive Response Recorded Date/ Time Advance Directives No May 11:20am Living Will No December 11, 2021 11:17pm Power of Certified Juvenile Probation Officer No December 11 2 11:17pm Advance Directive Response Recorded Date/ Time Advance Directives No May 11:20am Living Will No February 01 2 4:03am Power of Certified Juvenile Probation Officer No February 01, 2 022 4:03am Advance Directive Response Recorded Date/ Time Advance Directives No May 11:20am Living Will No February 05 2 3:25am Power of Certified Juvenile Probation Officer No February 05, 2 022 3:25am Advance Directive Response Recorded Date/ Time Advance Directives No May 11:20am Living Will No February 16 2 1:13am Power of Certified Juvenile Probation Officer No February 16, 2 022 1:13am Advance Directive Response Recorded Date/ Time Advance Directives No May 11:20am Living Will No March 15, 2022 12:31pm Power of Certified Juvenile Probation Officer No February 12:31pm Advance Directive Response Recorded Date/ Time Living Will No August 23, 2024 9:25am Power of Certified Juvenile Probation Officer No August 23 9:25am Advance Directives No May 10:20am Reason for Referral Specialty Diagnoses / Procedures Referred By Arsalan t Referred To Contact Diagnoses Hot flashes Irritability Other acne Procedures CONSULT TO ASSISTANT LABORATORY DIRECTOR OFFICE/OUTPATIENT NEW HIGH MDM 60-74 MINUTES Kinsey Levine, AMBULATORY CARE COORDINATOR.RETURNED CASE INSPECTOR [address] [place] [address] Referral ID Status Reason Start Date Expiration Date Visits Requested Visits Authorized [id number] Authorized PCP Requested Referral Auto-Generate d Referral 3 04/03/2024 1 1 Specialty Diagnoses / Procedures Referred By Contac t Referred To Contact Ent - Otolaryngology Diagnoses Nodule of external ear, left Procedures CONSULT TO ENT OFFICE/OUTPATIENT NEW HIGH MDM 60 MINUTES Guille Conde MD [address] [place] [address] Referral ID Status Reason Start Date Expiration Date Visits Requested Visits Authorized [id number] Authorized PCP Requested Referral 01/18/2024 01/17/2025 1 1 Specialty Diagnoses / Procedures Referred By Contac t Referred To Contact US IMAGING Diagnoses Nodule of external ear, left Procedures US HEAD/NECK SOFT TISSUE OTHER US SOFT TISSUE HEAD & NECK REAL TIME IMGE DOCM Guille Conde MD [address] [place] [address] [place] [address] Referral ID Status Reason Start Date Expiration Date Visits Requested Visits Authorized [id number] Authorized Auto-Generat ed Referral 01/18/2024 02/16/2025 1 1 Summary Purpose Family History No Family History Records FoundNo Family History Records Found Additional Source Comments Goals (unrecognized section and content) Goals may be documented in a n alternate sectionGoals may be documented in an alternate sectionGoals may be documented in an alternate sectionGoals may be documented in an alternate sectionGoals may be documented in an alternate sectionGoals may be documented in an alternate sectionGoals may be documented in an alternate sectionGoals may be documented in an alternate sectionGoals may be documented in an alternate section Source Comments (unrecognize d section and content) In the event this informatio n is protected by the Federal Confidentiality of Alcohol and Drug Abuse Patient Records regulations: The Federal rules restrict any use of the information to criminally investigate or prosecute any alcohol or drug abuse patient.[facility] the event this information is protected by the Federal Confidentiality of Alcohol and Drug Abuse Patient Records regulations: The Federal rules restrict any use of the information to criminally investigate or prosecute any alcohol or drug abuse patient.[facility] CampusIn the event this information is protected by the Federal Confidentiality of Alcohol and Drug Abuse Patient Records regulations: The Federal rules restrict any use of the information to criminally investigate or prosecute any alcohol or drug abuse patient.[facility] CampusIn the event this information is protected by the Federal Confidentiality of Alcohol and Drug Abuse Patient Records regulations: The Federal rules restrict any use of the information to criminally investigate or prosecute any alcohol or drug abuse patient.[facility] CampusIn the event this information is protected by the Federal Confidentiality of Alcohol and Drug Abuse Patient Records regulations: The Federal rules restrict any use of the information to criminally investigate or prosecute any alcohol or drug abuse patient.[facility] CampusIn the event this information is protected by the Federal Confidentiality of Alcohol and Drug Abuse Patient Records regulations: The Federal rules restrict any use of the information to criminally investigate or prosecute any alcohol or drug abuse patient.[facility] CampusIn the event this information is protected by the Federal Confidentiality of Alcohol and Drug Abuse Patient Records regulations: The Federal rules restrict any use of the information to criminally investigate or prosecute any alcohol or drug abuse patient.[facility] CampusIn the event this information is protected by the Federal Confidentiality of Alcohol and Drug Abuse Patient Records regulations: The Federal rules restrict any use of the information to criminally investigate or prosecute any alcohol or drug abuse patient.[facility] CampusIn the event this information is protected by the Federal Confidentiality of Alcohol and Drug Abuse Patient Records regulations: The Federal rules restrict any use of the information to criminally investigate or prosecute any alcohol or drug abuse patient.[facility] CampusIn the event this information is protected by the Federal Confidentiality of Alcohol and Drug Abuse Patient Records regulations: The Federal rules restrict any use of the information to criminally investigate or prosecute any alcohol or drug abuse patient.[facility] CampusIn the event this information is protected by the Federal Confidentiality of Alcohol and Drug Abuse Patient Records regulations: The Federal rules restrict any use of the information to criminally investigate or prosecute any alcohol or drug abuse patient.[facility] CampusIn the event this information is protected by the Federal Confidentiality of Alcohol and Drug Abuse Patient Records regulations: The Federal rules restrict any use of the information to criminally investigate or prosecute any alcohol or drug abuse patient.[facility] CampusIn the event this information is protected by the Federal Confidentiality of Alcohol and Drug Abuse Patient Records regulations: The Federal rules restrict any use of the information to criminally investigate or prosecute any alcohol or drug abuse patient.[facility] CampusIn the event this information is protected by the Federal Confidentiality of Alcohol and Drug Abuse Patient Records regulations: The Federal rules restrict any use of the information to criminally investigate or prosecute any alcohol or drug abuse patient.[facility] CampusIn the event this information is protected by the Federal Confidentiality of Alcohol and Drug Abuse Patient Records regulations: The Federal rules restrict any use of the information to criminally investigate or prosecute any alcohol or drug abuse patient.[facility] CampusIn the event this information is protected by the Federal Confidentiality of Alcohol and Drug Abuse Patient Records regulations: The Federal rules restrict any use of the information to criminally investigate or prosecute any alcohol or drug abuse patient.[facility] CampusIn the event this information is protected by the Federal Confidentiality of Alcohol and Drug Abuse Patient Records regulations: The Federal rules restrict any use of the information to criminally investigate or prosecute any alcohol or drug abuse patient.[facility] CampusIn the event this information is protected by the Federal Confidentiality of Alcohol and Drug Abuse Patient Records regulations: The Federal rules restrict any use of the information to criminally investigate or prosecute any alcohol or drug abuse patient.[facility] CampusIn the event this information is protected by the Federal Confidentiality of Alcohol and Drug Abuse Patient Records regulations: The Federal rules restrict any use of the information to criminally investigate or prosecute any alcohol or drug abuse patient.[facility] CampusIn the event this information is protected by the Federal Confidentiality of Alcohol and Drug Abuse Patient Records regulations: The Federal rules restrict any use of the information to criminally investigate or prosecute any alcohol or drug abuse patient.[facility] CampusIn the event this information is protected by the Federal Confidentiality of Alcohol and Drug Abuse Patient Records regulations: The Federal rules restrict any use of the information to criminally investigate or prosecute any alcohol or drug abuse patient.[facility] CampusIn the event this information is protected by the Federal Confidentiality of Alcohol and Drug Abuse Patient Records regulations: The Federal rules restrict any use of the information to criminally investigate or prosecute any alcohol or drug abuse patient.[facility] CampusIn the event this information is protected by the Federal Confidentiality of Alcohol and Drug Abuse Patient Records regulations: The Federal rules restrict any use of the information to criminally investigate or prosecute any alcohol or drug abuse patient.[facility] CampusIn the event this information is protected by the Federal Confidentiality of Alcohol and Drug Abuse Patient Records regulations: The Federal rules restrict any use of the information to criminally investigate or prosecute any alcohol or drug abuse patient.[facility] CampusIn the event this information is protected by the Federal Confidentiality of Alcohol and Drug Abuse Patient Records regulations: The Federal rules restrict any use of the information to criminally investigate or prosecute any alcohol or drug abuse patient.[facility] CampusIn the event this information is protected by the Federal Confidentiality of Alcohol and Drug Abuse Patient Records regulations: The Federal rules restrict any use of the information to criminally investigate or prosecute any alcohol or drug abuse patient.[facility] CampusIn the event this information is protected by the Federal Confidentiality of Alcohol and Drug Abuse Patient Records regulations: The Federal rules restrict any use of the information to criminally investigate or prosecute any alcohol or drug abuse patient.[facility] CampusIn the event this information is protected by the Federal Confidentiality of Alcohol and Drug Abuse Patient Records regulations: The Federal rules restrict any use of the information to criminally investigate or prosecute any alcohol or drug abuse patient.[facility] CampusIn the event this information is protected by the Federal Confidentiality of Alcohol and Drug Abuse Patient Records regulations: The Federal rules restrict any use of the information to criminally investigate or prosecute any alcohol or drug abuse patient.[facility] CampusIn the event this information is protected by the Federal Confidentiality of Alcohol and Drug Abuse Patient Records regulations: The Federal rules restrict any use of the information to criminally investigate or prosecute any alcohol or drug abuse patient.[facility] CampusIn the event this information is protected by the Federal Confidentiality of Alcohol and Drug Abuse Patient Records regulations: The Federal rules restrict any use of the information to criminally investigate or prosecute any alcohol or drug abuse patient.[facility] CampusIn the event this information is protected by the Federal Confidentiality of Alcohol and Drug Abuse Patient Records regulations: The Federal rules restrict any use of the information to criminally investigate or prosecute any alcohol or drug abuse patient.[facility] CampusIn the event this information is protected by the Federal Confidentiality of Alcohol and Drug Abuse Patient Records regulations: The Federal rules restrict any use of the information to criminally investigate or prosecute any alcohol or drug abuse patient.[facility] CampusIn the event this information is protected by the Federal Confidentiality of Alcohol and Drug Abuse Patient Records regulations: The Federal rules restrict any use of the information to criminally investigate or prosecute any alcohol or drug abuse patient.[facility] CampusIn the event this information is protected by the Federal Confidentiality of Alcohol and Drug Abuse Patient Records regulations: The Federal rules restrict any use of the information to criminally investigate or prosecute any alcohol or drug abuse patient.[facility] CampusIn the event this information is protected by the Federal Confidentiality of Alcohol and Drug Abuse Patient Records regulations: The Federal rules restrict any use of the information to criminally investigate or prosecute any alcohol or drug abuse patient.[facility] CampusIn the event this information is protected by the Federal Confidentiality of Alcohol and Drug Abuse Patient Records regulations: The Federal rules restrict any use of the information to criminally investigate or prosecute any alcohol or drug abuse patient.[facility] CampusIn the event this information is protected by the Federal Confidentiality of Alcohol and Drug Abuse Patient Records regulations: The Federal rules restrict any use of the information to criminally investigate or prosecute any alcohol or drug abuse patient.[facility] CampusIn the event this information is protected by the Federal Confidentiality of Alcohol and Drug Abuse Patient Records regulations: The Federal rules restrict any use of the information to criminally investigate or prosecute any alcohol or drug abuse patient.[facility] CampusIn the event this information is protected by the Federal Confidentiality of Alcohol and Drug Abuse Patient Records regulations: The Federal rules restrict any use of the information to criminally investigate or prosecute any alcohol or drug abuse patient.[facility] CampusIn the event this information is protected by the Federal Confidentiality of Alcohol and Drug Abuse Patient Records regulations: The Federal rules restrict any use of the information to criminally investigate or prosecute any alcohol or drug abuse patient.[facility] CampusIn the event this information is protected by the Federal Confidentiality of Alcohol and Drug Abuse Patient Records regulations: The Federal rules restrict any use of the information to criminally investigate or prosecute any alcohol or drug abuse patient.[facility] CampusIn the event this information is protected by the Federal Confidentiality of Alcohol and Drug Abuse Patient Records regulations: The Federal rules restrict any use of the information to criminally investigate or prosecute any alcohol or drug abuse patient.[facility] CampusIn the event this information is protected by the Federal Confidentiality of Alcohol and Drug Abuse Patient Records regulations: The Federal rules restrict any use of the information to criminally investigate or prosecute any alcohol or drug abuse patient.[facility] CampusIn the event this information is protected by the Federal Confidentiality of Alcohol and Drug Abuse Patient Records regulations: The Federal rules restrict any use of the information to criminally investigate or prosecute any alcohol or drug abuse patient.[facility] CampusIn the event this information is protected by the Federal Confidentiality of Alcohol and Drug Abuse Patient Records regulations: The Federal rules restrict any use of the information to criminally investigate or prosecute any alcohol or drug abuse patient.[facility] CampusIn the event this information is protected by the Federal Confidentiality of Alcohol and Drug Abuse Patient Records regulations: The Federal rules restrict any use of the information to criminally investigate or prosecute any alcohol or drug abuse patient.[facility] CampusIn the event this information is protected by the Federal Confidentiality of Alcohol and Drug Abuse Patient Records regulations: The Federal rules restrict any use of the information to criminally investigate or prosecute any alcohol or drug abuse patient.[facility] CampusIn the event this information is protected by the Federal Confidentiality of Alcohol and Drug Abuse Patient Records regulations: The Federal rules restrict any use of the information to criminally investigate or prosecute any alcohol or drug abuse patient.[facility] CampusIn the event this information is protected by the Federal Confidentiality of Alcohol and Drug Abuse Patient Records regulations: The Federal rules restrict any use of the information to criminally investigate or prosecute any alcohol or drug abuse patient.[facility] CampusIn the event this information is protected by the Federal Confidentiality of Alcohol and Drug Abuse Patient Records regulations: The Federal rules restrict any use of the information to criminally investigate or prosecute any alcohol or drug abuse patient.[facility] CampusIn the event this information is protected by the Federal Confidentiality of Alcohol and Drug Abuse Patient Records regulations: The Federal rules restrict any use of the information to criminally investigate or prosecute any alcohol or drug abuse patient.[facility] CampusIn the event this information is protected by the Federal Confidentiality of Alcohol and Drug Abuse Patient Records regulations: The Federal rules restrict any use of the information to criminally investigate or prosecute any alcohol or drug abuse patient.[facility] CampusIn the event this information is protected by the Federal Confidentiality of Alcohol and Drug Abuse Patient Records regulations: The Federal rules restrict any use of the information to criminally investigate or prosecute any alcohol or drug abuse patient.[facility] CampusIn the event this information is protected by the Federal Confidentiality of Alcohol and Drug Abuse Patient Records regulations: The Federal rules restrict any use of the information to criminally investigate or prosecute any alcohol or drug abuse patient.[facility] CampusIn the event this information is protected by the Federal Confidentiality of Alcohol and Drug Abuse Patient Records regulations: The Federal rules restrict any use of the information to criminally investigate or prosecute any alcohol or drug abuse patient.[facility] CampusIn the event this information is protected by the Federal Confidentiality of Alcohol and Drug Abuse Patient Records regulations: The Federal rules restrict any use of the information to criminally investigate or prosecute any alcohol or drug abuse patient.[facility] CampusIn the event this information is protected by the Federal Confidentiality of Alcohol and Drug Abuse Patient Records regulations: The Federal rules restrict any use of the information to criminally investigate or prosecute any alcohol or drug abuse patient.[facility] Reason for Visit (unrecogniz ed section and content) Reason Comments Follow Up Specialty Diagnoses / Procedures Referred By Contac t Referred To Contact Diagnoses Encounter for long-term (current) use of medications Procedures OFFICE/OUTPATIENT NEW HIGH MDM 60 MINUTES Kinsey Levine, AMBULATORY CARE COORDINATOR.RETURNED CASE INSPECTOR [address] [place] [address] Phone: tel: fax: Referral ID Status Reason Start Date Expiration Date V isits Requested Visits Authorized [id number] Closed PCP Requested Referral 01/07/2025 01/07/2026 1 1 Reason Comments Follow Up Specialty Diagnoses / Procedures Referred By Contac t Referred To Contact Diagnoses ZAIRE (generalized anxiety disorder) Procedures PROVIDER ORDERED FOLLOW UP OFFICE/OUTPATIENT [facility] MDM 60 MINUTES Kinsey Levine, AMBULATORY CARE COORDINATOR.RETURNED CASE INSPECTOR [address] [place] [address] Phone: tel: fax: Referral ID Status Reason Start Date Expiration Date V isits Requested Visits Authorized [id number] Closed PCP Requested Referral 09/24/2024 09/24/2025 1 1 Reason Comments Mouth/Lip Problem pt [facility] Reason Comments Mouth/Lip Problem Reason Comments Appointment Cancelled Reason Comments Appointment Rescheduled Reason Comments No Show Reason Comments Refill Request Reason Comments Other Vasomotor symptoms Specialty Diagnoses / Procedures Referred By Contac t Referred To Contact Diagnoses Hot flashes Irritability Other acne Procedures CONSULT TO ASSISTANT LABORATORY DIRECTOR OFFICE/OUTPATIENT [facility] 60-74 MINUTES Kinsey Levine, AMBULATORY CARE COORDINATOR.RETURNED CASE INSPECTOR [address] [place] [address] Referral ID Status Reason Start Date Expiration Date V isits Requested Visits Authorized [id number] Closed PCP Requested Referral Auto-Generated Referral 04/04/2023 [...] lump Specialty Diagnoses / Procedures Referred By Contac t Referred To Contact Family Medicine / FAMILY MEDICINE Diagnoses Sleep apnea Lump behind left ear/ Sleep apnea Procedures 4C EST Self Guille Conde MD [address] [place] [address] Referral ID Status Reason Start Date Expiration Date Visits Requested Visits Authorized [id number] Outside PCP Patient Cleared - INN Insurance Found 01/12/2024 04/11/2024 1 1 Reason Comments Radiology US Specialty Diagnoses / Procedures Referred By [facility] Referred To Contact US IMAGING Diagnoses Nodule of external ear, left Procedures US HEAD/NECK SOFT TISSUE OTHER US SOFT TISSUE HEAD & NECK REAL TIME IMGE Guille Spencer MD [address] [place] [address] [place] [address] Referral ID Status Reason Start Date Expiration Date V isits Requested Visits Authorized [id number] Closed Auto-Generate d Referral 01/18/2024 02/16/2025 1 1 Reason Comments Cough congestion, fatigue, sore throat and dizziness x 2 days Reason Onset Date Comments [facility] Health Navigation Outreach 06/05/2024 [employer] [place] Reason Comments Follow Up Bipolar/Depression/A nxiety Reason Onset Date Comments [facility] Health Navigation Outreach 07/24/2024 [employer] [place] Reason Comments Patient Question Reason Onset Date Comments Population Health Navigation Outreach 08/31/2024 [employer] [place] Reason Comments Headache bodyaches, nausea an d vomiting x 1 day Reason Onset Date Comments [facility] Health Navigation Outreach 10/30/2024 [employer] [place] Reason Onset Date Comments [facility] Health Navigation Outreach 11/30/2024 [employer] [place] Reason Onset Date Comments [facility] Health Navigation Outreach 12/31/2024 [employer] [place] Specialty Diagnoses / Procedures Referred By [facility] Referred To Contact Diagnoses ZAIRE (generalized anxiety disorder) Bipolar 2 disorder (HCC) Encounter for long-term (current) use of medications Procedures PROVIDER ORDERED FOLLOW UP OFFICE/OUTPATIENT NEW HIGH MDM 60 MINUTES Kinsey Levine, AMBULATORY CARE COORDINATOR.RETURNED CASE INSPECTOR [address] [place] [address] Phone: tel: fax: Referral ID Status Reason Start Date Expiration Date V isits Requested Visits Authorized [id number] Closed PCP Requested Referral 11/19/2024 11/19/2025 1 1 Reason Comments Insurance Authorization Medication Problem Pharmacy Reason Comments [facility] Reason Comments Insurance Authorization Care Teams (unrecognized sec tion and content) Director [employer] Relationship Specialty Start Date End Date Guille Conde MD [address] [place] [address] PCP - General Family Practice 01/30/18 Director [employer] Relationship Specialty Start Date End Date Guille Conde MD [address] [place] [address] PCP - General Family Practice 01/30/18 Director [employer] Relationship Specialty Start Date End Date Guille Conde MD [address] [place] [address] PCP - General Family Practice 01/30/18 Director [employer] Relationship Specialty Start Date End Date Guille Conde MD [address] [place] [address] PCP - General Family Medicine 01/30/18 Director [employer] Relationship Specialty Start Date End Date Guille Conde MD [address] [place] [address] PCP - General Family Medicine 01/30/18 Director [employer] Relationship Specialty Start Date End Date Guille Conde MD [address] [place] [address] PCP - General Family Medicine 01/30/18 Director [employer] Relationship Specialty Start Date End Date Guille Conde MD [address] [place] [address] PCP - General Family Medicine 01/30/18 Director [employer] Relationship Specialty Start Date End Date Guille Conde MD [address] [place] [address] PCP - General Family Medicine 01/30/18 Director [employer] Relationship Specialty Start Date End Date Guille Conde MD [address] [place] [address] PCP - General Family Medicine 01/30/18 Director [employer] Relationship Specialty Start Date End Date Guille Conde MD [address] [place] [address] PCP - General Family Medicine 01/30/18 Director [employer] Relationship Specialty Start Date End Date Guille Conde MD [address] [place] [address] PCP - General Family Medicine 01/30/18 Director [employer] Relationship Specialty Start Date End Date Guille Conde MD [address] [place] [address] PCP - General Family Medicine 01/30/18 Director [employer] Relationship Specialty Start Date End Date Guille Conde MD [address] [place] [address] PCP - General Family Medicine 01/30/18 Director [employer] Relationship Specialty Start Date End Date Guille Conde MD [address] [place] [address] PCP - General Family Medicine 01/30/18 Director [employer] Relationship Specialty Start Date End Date Guille Conde MD [address] [place] [address] PCP - General Family Medicine 01/30/18 Director [employer] Relationship Specialty Start Date End Date Guille Conde MD [address] [place] [address] PCP - General Family Medicine 01/30/18 Director [employer] Relationship Specialty Start Date End Date Guille Conde MD [address] [place] [address] PCP - General Family Medicine 01/30/18 Director [employer] Relationship Specialty Start Date End Date Guille Conde MD [address] [place] [address] PCP - General Family Medicine 01/30/18 Director [employer] Relationship Specialty Start Date End Date Guille Conde MD [address] [place] [address] PCP - General Family Medicine 01/30/18 Director [employer] Relationship Specialty Start Date End Date Guille Conde MD [address] [place] [address] PCP - General Family Medicine 01/30/18 [employer] Relationship Specialty Start Date End Date Guille Conde MD [address] [place] [address] PCP - General Family Medicine 01/30/18 Director [employer] Relationship Specialty Start Date End Date Guille Conde MD [address] [place] [place] [address] PCP - General Family Medicine 01/30/18 Director [employer] Relationship Specialty Start Date End Date Guille Conde MD [address] [place] [place] [address] PCP - General Family Medicine 01/30/18 Director [employer] Relationship Specialty Start Date End Date Guille Conde MD [address] [place] [address] PCP - General Family Medicine 01/30/18 Director [employer] Relationship Specialty Start Date End Date Guille Conde MD [address] [place] [address] PCP - General Family Medicine 01/30/18 Director [employer] Relationship Specialty Start Date End Date Guille Conde MD [address] [place] [address] PCP - General Family Medicine 01/30/18 Podlogar, CECILIA RubinN.RETURNED CASE INSPECTOR [address] [place] [address] 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 05/26/24 Director [employer] Relationship Specialty Start Date End Date Guille Conde MD [address] [place] [address] PCP - General Family Medicine 01/30/18 Podlogar, Caryn, AMBULATORY CARE COORDINATOR.RETURNED CASE INSPECTOR [address] [place] [address] 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 05/26/24 Director [employer] Relationship Specialty Start Date End Date Guille Conde MD [address] [place] [address] PCP - General Family Medicine 01/30/18 Podlogar, Caryn, AMBULATORY CARE COORDINATOR.RETURNED CASE INSPECTOR [address] [place] [address] 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 05/26/24 Director [employer] Relationship Specialty Start Date End Date Guille Conde MD [address] [place] [address] PCP - General Family Medicine 01/30/18 PodlogarCaryn APRN.RETURNED CASE INSPECTOR [address] [place] [address] Fourth Grade Teacher Family [facility] 05/26/24 Director [employer] Relationship Specialty Start Date End Date Guille Conde MD [address] [place], [place] [address] PCP - General Family Medicine 01/30/18 PodlogarCaryn APRN.RETURNED CASE INSPECTOR [address] [place] [address] [facility] 05/26/24 Director [employer] Relationship Specialty Start Date End Date Guille Conde MD [address] [place] [address] PCP - General Family Medicine 01/30/18 Podlogar, Caryn, AMBULATORY CARE COORDINATOR.RETURNED CASE INSPECTOR [address] [place], [place] [address] 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 05/26/24 Clara Rivas APRN.RETURNED CASE INSPECTOR [address] [place], [place] [id number] [facility] 08/31/24 Team Status: Active Member Role Status Dates Dr. Brent Conde MD Primary Care Provider Acti ve Team Status: Inactive Member Role Status Dates Dr. Brent Conde MD Primary Care Provider Acti ve Start: August 23, 2024 End: August 23, 2024 Dr. Kel Garcia MD Emergency Provider Active S tart: August 23, 2024 End: August 23, 2024 Director [employer] Relationship Specialty Start Date End Date Guille Conde MD [address] [place] [address] PCP - General Family Medicine 01/30/18 PodlogarCaryn APRN.RETURNED CASE INSPECTOR [address] [place] [address] 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 05/26/24 Clara Rivas APRN.RETURNED CASE INSPECTOR [address] [place] [address] 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 09/10/24 Director [employer] Relationship Specialty Start Date End Date Guille Conde MD [address] [place] [address] PCP - General Family Medicine 01/30/18 PodlogarCaryn APRN.RETURNED CASE INSPECTOR [address] [place] [address] 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 05/26/24 Clara Rivas APRN.RETURNED CASE INSPECTOR [address] [place] [address] 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 09/10/24 Director [employer] Relationship Specialty Start Date End Date Guille Conde MD [address] [place] [address] PCP - General Family Medicine 01/30/18 PodlogarCaryn APRN.RETURNED CASE INSPECTOR [address] [place] [address] 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 05/26/24 Clara Rivas APRN.RETURNED CASE INSPECTOR [address] [place] [address] Fourth Grade Teacher Family [facility] 09/10/24 Director [employer] Relationship Specialty Start Date End Date Guille Conde MD [address] [place] [address] PCP - General Family Medicine 01/30/18 Podlogar, Caryn AMBULATORY CARE COORDINATOR.RETURNED CASE INSPECTOR [address] [place] [address] [facility] 05/26/24 Director [employer] Relationship Specialty Start Date End Date Guille Conde MD [address] [place] [address] PCP - General Family Medicine 01/30/18 Podlogar, Caryn AMBULATORY CARE COORDINATOR.RETURNED CASE INSPECTOR [address] [place] [address] 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 05/26/24 Clara Rivas APRN.RETURNED CASE INSPECTOR [address] [place] [address] [facility] 11/29/24 Director [employer] Relationship Specialty Start Date End Date Guille Conde MD [address] [place] [address] PCP - General Family Medicine 01/30/18 Podlogar, Caryn, AMBULATORY CARE COORDINATOR.RETURNED CASE INSPECTOR [address] [place] [address] 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 05/26/24 Clara Rivas AMBULATORY CARE COORDINATOR.RETURNED CASE INSPECTOR [address] [place] [address] Fourth Grade Teacher Family [facility] 09/10/24 11/04/24 Clara Rivas, AMBULATORY CARE COORDINATOR.RETURNED CASE INSPECTOR [address] [place] [address] [facility] 11/29/24 Director [employer] Relationship Specialty Start Date End Date Guille Conde MD [address] [place] [address] PCP - General Family Medicine 01/30/18 PodlogarCaryn AMBULATORY CARE COORDINATOR.RETURNED CASE INSPECTOR [address] [place] [address] [facility] Medicine 05/26/24 Clara Rivas, AMBULATORY CARE COORDINATOR.RETURNED CASE INSPECTOR [address] [place] [address] [facility] 11/29/24 Director [employer] Relationship Specialty Start Date End Date Guille Conde MD [address] [place] [address] PCP - General Family Medicine 01/30/18 PodlogarCaryn AMBULATORY CARE COORDINATOR.RETURNED CASE INSPECTOR [address] [place] [address] [facility] Medicine 05/26/24 Clara Rivas AMBULATORY CARE COORDINATOR.RETURNED CASE INSPECTOR [address] [place] [address] [facility] Medicine 11/29/24 Director [employer] Relationship Specialty Start Date End Date Guille Conde MD [address] [place] [address] PCP - General Family Medicine 01/30/18 Podlogar, Caryn AMBULATORY CARE COORDINATOR.RETURNED CASE INSPECTOR [address] [place] [address] 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 05/26/24 Clara Rivas APRN.RETURNED CASE INSPECTOR [address] [place] [address] 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 11/29/24 Director [employer] Relationship Specialty Start Date End Date Guille Conde MD [address] [place] [address] PCP - General Family Medicine 01/30/18 Podlogar, Caryn AMBULATORY CARE COORDINATOR.RETURNED CASE INSPECTOR [address] [place] [address] 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 05/26/24 Clara Rivas AMBULATORY CARE COORDINATOR.RETURNED CASE INSPECTOR [address] [place] [address] 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 11/29/24 Director [employer] Relationship Specialty Start Date End Date Guille Conde MD [address] [place] [address] PCP - General Family Medicine 01/30/18 Podlogar, Caryn AMBULATORY CARE COORDINATOR.RETURNED CASE INSPECTOR [address] [place] [address] 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 05/26/24 Clara Rivas APRN.RETURNED CASE INSPECTOR [address] [place] [address] 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 11/29/24 [employer] Relationship Specialty Start Date End Date Guille Conde MD [address] [place], [place] [address] PCP - General Family Medicine 01/30/18 Caryn Thibodeaux APRN.RETURNED CASE INSPECTOR [address] [place], [place] [address] [facility] 05/26/24 Clara Rivas APRN.RETURNED CASE INSPECTOR [address] [place] [address] [facility] 11/29/24 INFORMATION SOURCE (unrecogn ized section and content) DATE CREATED AUTHOR 09/05/2024 [facility] DATE CREATED AUTHOR 'S GENE ATION 04/20/2025 [facility] FOR RECORDS PERTAINING TO PATIENTS WHO [...] BE BASED ON THE PRIMARY CLINICAL RECORDS. [facility]. provides no warranty or guarantee of the accuracy or completeness of information in this document.
[2025-06-13] MEDS: Ketorolac 30 MG/ML Syringe IV (20:05)
[2025-06-13] MEDS: DiphenhydrAMINE 50 MG/ML Syringe IV (20:06)
[2025-06-13] MEDS: 0.9% Normal Saline (1000mL) 1,000 ML 1000 ML IV (20:09)
--- NOTE | 2025-06-13 20:10 | CT_ITS ---
PROCEDURE: BRAIN/HEAD WITHOUT CONTRAST 06/13/2025 REASON FOR EXAM: Headache TECHNIQUE: Procedure Code: CTBR Modality: CT Procedure: BRAIN/HEAD WITHOUT CONTRAST Coronal and Sagittal reconstruction series were provided. One or more dose reduction techniques were used (e.g., Automated exposure control, adjustment of the mA and/or kV according to patient size, use of iterative reconstruction technique. RADIATION DOSE SUMMARY: DLP: 745.49 mGycm COMPARISON: CT head 05/22/2019 FINDINGS: No acute hemorrhage. No acute infarct. No significant mass effect or brain herniation. The ventricular system and sulci/fissures are within normal limits of size and configuration for the patient's stated age. No extra-axial fluid collection. The basal cisterns are patent. The mastoid air cells are clear. The paranasal sinuses are predominantly clear. Left nasal septal deviation and nasal spur. The calvarium appears intact. CT/Brain/Head without Contrast IMPRESSION: No CT evidence of acute intracranial hemorrhage, infarct, or significant mass e ffect. Reading Location: [id number]
[2025-06-13 20:26] LABS: Hematocrit 48.3 % (37-47); Hemoglobin 16.3 g/dL (12.0-15.0); Immature Granulocytes Count 0.040 X10^3/uL (0.0-0.0); Mean Corp Hgb Conc 33.7 g/dL (32-36); Mean Corpuscular Volume 88.8 fL (81-99); Mean Platelet Vol. 11.5 fl (6.2-12.0); NRBC Flagged by Analyzer 0 % (0-5); Platelet Count 184 K/mm3 (150-450); RBC Distribution Width CV 12.7 % (11.6-14.6); RBC Distribution Width SD 41.4 fl (35.1-43.9); Red Blood Count 5.44 M/mm3 (4.2-5.4); White Blood Count 10.1 K/mm3 (4.4-11.0)
[2025-06-13 20:50] LABS: Anion Gap 13 (7-18); BUN 9 mg/dL (4-19); BUN/Creat Ratio 10.1 RATIO (10-20); Calcium,Total 10.0 mg/dL (7.6-11.0); Carbon Dioxide 22.6 mmol/L (20.0-29.0); Chloride 102 mmol/L (96-106); Glucose 139 mg/dL (70-99); Potassium 3.7 mmol/L (3.5-5.1)
[2025-06-13 21:17] VITALS: BP 112/76; PULSE 80; RESP 16; TEMP 36.8; O2SAT 99
== END 2025-06-13 21:17 | disposition home or self-care (01) ==
PROVIDERS: Emergency Provider Emergency Medicine; PCP Family Medicine; Visit Provider Emergency Medicine
DX: R50.9 Fever, unspecified (principal); F31.9 Bipolar disorder, unspecified; R11.2 Nausea with vomiting, unspecified; F41.9 Anxiety disorder, unspecified; F17.210 Nicotine dependence, cigarettes, uncomplicated; J45.909 Unspecified asthma, uncomplicated; K21.9 Gastro-esophageal reflux disease without esophagitis
CPT/HCPCS: 70450; 80048; 85025; 96361; 96374; 96375; 99283